=== PATIENT | female | born 1990 | race Caucasian/White ===

== ENCOUNTER 2018-02-17 17:28 | Emergency (ER) | payer SELFPAY ==
[2018-02-17 17:29] VITALS: BP 119/57; PULSE 72; RESP 16; TEMP 36.4; O2SAT 98; BMI 22.1
[2018-02-17 17:45] VITALS: BP 118/70; PULSE 75; RESP 14; O2SAT 99
--- NOTE | 2018-02-17 17:51 | US_ITS ---
US Venous Duplex LE Unilat / Limited INDICATION: RT LATERAL THIGH PAIN AND TINGLING IN THE CALF AREA COMPARISON: None TECHNIQUE: Ultrasonographic grayscale, duplex investigation of the venous structures of the right lower extremity. Doppler waveform analysis. FINDINGS: There is normal flow and augmentation without evidence of thrombus in the right greater saphenous vein, common femoral vein, femoral vein, popliteal vein, and posterior tibial vein. US/Venous Duplex Imag/Limited/Uni IMPRESSION: Negative examination. No evidence of DVT in the right lower extremity. at 1909 Reported and signed by: Koirn Alfred MD Electronically Signed: Korin Alfred MD at 19:07 EDT Tel , Service support ,
--- NOTE | 2018-02-17 17:51 | ED.DCSUM_ITS ---
- ER Visit Summary Date of Service: 02/17/18 Chief Complaint: Right leg and thigh pain History of Present Illness: The patient is a 27 F presenting with right thigh and leg cramps that started while she was standing in her house today. She traveled recently to [place] by car. She had no associated chest pain or shortness of breath. She does have a history of sciatica but this does not feel similar and she has no back or buttock pain at this time. It is somewhat better than it was earlier. She did not have significant swelling and no skin color changes. No paresthesias. Physical Examination: Mild tenderness right thigh medially and right calf medially but no objective swelling. Strong pulse distally. Overlying skin looks normal. Compartments are soft. Test Results: DVT ultrasound was negative Emergency Department Course and Treatment: No evidence of DVT. No evidence of cellulitis. No back pain or sciatica symptoms. Compartments are soft. Strong distal pulse. No claudication. Exact cause of her cramping is not clear but given her well appearance and unremarkable examination, I believe discharge home on muscle relaxers and naproxen is reasonable. She will return if worse and follow-up if not improving. Treatment Plan: Oral naproxen and Flexeril. Disposition: Home stable condition Impression: Initial encounter right lower extremity cramps of uncertain etiology This note was generated with [employer] dictation software. It may contain incorrect words, spelling, and punctuation that were not noted in review of the chart prior to signing ED Disposition - Plan for ED Patient: Chief Complaint: Lower Extremity Injury Instructions: ED Muscle Pain Leg Cramps Prescriptions: Naproxen [Naprosyn] 500 mg PO BID PRN #20 tablet Cyclobenzaprine [Flexeril] 10 mg PO TID PRN #20 tablet PRN Reason: Muscle Spasm Referrals: Care Physician,No Primary [Primary Care Provider] -
[2018-02-17] MEDS: Naproxen 500 MG Tablet PO (18:57)
[2018-02-17 19:05] VITALS: BP 112/75; PULSE 70; RESP 14; O2SAT 99
== END 2018-02-17 19:10 | disposition home or self-care (01) ==
LOC: ED 17:57
PROVIDERS: Emergency Provider Emergency Medicine
DX: R25.2 Cramp and spasm (principal); M79.604 Pain in right leg; M79.651 Pain in right thigh; E03.9 Hypothyroidism, unspecified; Z90.89 Acquired absence of other organs; Z79.899 Other long term (current) drug therapy
CPT/HCPCS: 93971; 99282

== ENCOUNTER 2018-07-03 21:48 | Emergency (ER) | payer SELFPAY ==
[2018-07-03 21:48] VITALS: BP 141/87; PULSE 82; RESP 16; TEMP 36.1; BMI 21.9
--- NOTE | 2018-07-03 22:18 | ED.DCSUM_ITS ---
- ER Visit Summary Date of Service: 07/03/18 Chief Complaint: Hematuria, dysuria History of Present Illness: The patient is a 27 F who did not feel well this afternoon. Around 5 PM she started developing dysuria, hematuria, and frequency. Last menstrual cycle was early June. Patient denies fever or chills. Physical Examination: Vital signs unremarkable. Patient is afebrile. Patient sitting in a bedside chair no acute distress. She is nontoxic appearing. Head neck examination unremarkable. Heart is regular rate and rhythm. Lung sounds are clear. Abdomen is soft with mild suprapubic tenderness. Test Results: Urine test is negative. Urinalysis shows 10-25 white cells, but 0 bacteria at this time. Emergency Department Course and Treatment: Patient certainly has signs and symptoms of acute cystitis. She is given a dose of Azo and will treat with a 3- day course of Bactrim. Treatment Plan: [] Disposition: Discharge Impression: Cystitis This note was generated with [employer] dictation software. It may contain incorrect words, spelling, and punctuation that were not noted in review of the chart prior to signing ED Disposition - Plan for ED Patient: Chief Complaint: Complaint Referrals: Care Physician,No Primary [Primary Care Provider] -
[2018-07-03 22:21] LABS: Bacteria 0 SEEN /hpf (None Seen); Mucous, Urine 0 SEEN /hpf (<or=2+)
[2018-07-03 22:22] LABS: Color, Urine Red (Yellow); Glucose, Dipstick Normal (Normal); Ketone-Dipstick Negative (Negative); Leukocyte Esterase-Dipstick 500 /ul (Negative); Nitrite-Dipstick Negative (Negative); Occult Blood-Urine 250 /ul (Negative); Protein-Dipstick 30 mg/dl (Negative); Specific Gravity, Urine 1.005 (1.002-1.030); Urine Bilirubin Dipstick Negative (Negative); Urine Clarity Clear (Clear); Urine Urobilinogen Normal (Normal)
[2018-07-03 22:27] LABS: Internal QC Validated? YES +Cl - CLEAR BKGD; Pregnancy, Urine Negative Negative
[2018-07-03] MEDS: Phenazopyridine 95 MG Tablet 190 MG PO (22:28)
[2018-07-03 22:33] LABS: Red Blood Cells-Urine 0-5 SEEN /hpf (0-5); White Blood Cells 10-25 SEEN /hpf (0-5)
[2018-07-03 22:34] LABS: Squamous Epithelial Cells - UA 0-5 SEEN /hpf (5-10)
--- NOTE | 2018-07-03 22:39 | ED.DEP ---
ED Disposition - Plan for ED Patient: Disposition: Home or Assisted Living Chief Complaint: Complaint Instructions: ED UTI Cystitis Female Prescriptions: Phenazopyridine HCl [Pyridium] 200 mg PO BID PRN PRN #10 tablet PRN Reason: Pain Smz/Tmp Ds [Bactrim Ds] 1 tablet PO BID #6 tablet Referrals: Ravinder Woodard MD [NON-STAFF] - 3-5 Days if not improving
[2018-07-03] MEDS: Smz/Tmp Ds Tablet 1 TABLET PO (22:59)
== END 2018-07-03 23:00 | disposition home or self-care (01) ==
PROVIDERS: Emergency Medicine; Emergency Provider Emergency Medicine
DX: N30.91 Cystitis, unspecified with hematuria (principal); E03.9 Hypothyroidism, unspecified; Z79.899 Other long term (current) drug therapy
CPT/HCPCS: 81001; 81025; 99283

== ENCOUNTER 2018-08-30 05:55 | Emergency (ER) | payer SELFPAY ==
[2018-08-30 05:56] VITALS: BP 131/86; PULSE 88; RESP 17; TEMP 36.8; O2SAT 100; BMI 20.7
--- NOTE | 2018-08-30 06:11 | EKG12_ITS ---
Test Reason : NUMBNESS Blood Pressure : / mmHG Vent. Rate : 086 BPM Atrial Rate : 086 BPM P-R Int : 170 ms QRS Dur : 100 ms QT Int : 372 ms P-R-T Axes : 068 006 029 degrees QTc Int : 445 ms Normal sinus rhythm Incomplete right bundle branch block Nonspecific T wave abnormality Abnormal ECG Confirmed by RAUL CARDENAS, CHANCE ([id number]), industrial editor FANTA US ([id number]) on 08/31/2018 4:28:43 PM Referred By: DHIRAJ Confirmed By:CHANCE CARTER MD
--- NOTE | 2018-08-30 06:13 | ED.DCSUM_ITS ---
- ER Visit Summary Date of Service: 08/30/18 Chief Complaint: [] Palpitations heart racing History of Present Illness: The patient is a 27 F with the above complaint since yesterday night. Intermittent. She woke up this morning and felt it again. She felt nausea. No stimulants. No illegal drug use. She is never had this before. Currently her severity is resolved. She developed some numbness and tingling in her arms and legs Physical Examination: [] Vital signs reviewed General: Well-nourished well-developed Head: Normocephalic atraumatic Eyes: Pupils equal round and reactive to light extraocular movements intact ENT: TMs clear no hemotympanum no trauma Neck: Nontender full range of motion Cardiovascular: Regular rate rhythm no murmurs normal S1-S2 Respiratory: No distress clear to auscultation bilaterally chest nontender Abdomen: Soft nontender nondistended normal bowel sounds no masses Back: Nontender no CVA tenderness Extremities: Nontender active range of motion ?4 extremities no trauma Skin: Normal color no trauma Neuro alert oriented cranial nerves II through XII intact normal strength sensation reflexes Test Results: [] Emergency Department Course and Treatment: [] And IV fluids and Zofran. Lab work obtained. EKG shows sinus rhythm at a rate of 86. No acute ischemic findings or arrhythmia. Nonspecific changes. Lab work shows a potassium of 2.9 down from 3.3. Chronic low platelets of 149. Patient given oral potassium supplementation. [place] better after treatment. She will be discharged home to follow-up with her family doctor. Given a prescription for 5 days of potassium supplementation and will have her potassium rechecked. On the monitor she has remained in normal sinus. Treatment Plan: [] Disposition: [] Impression: [] Palpitations Hypokalemia Limb paresthesias likely secondary to hypokalemia This note was generated with [employer] dictation software. It may contain incorrect words, spelling, and punctuation that were not noted in review of the chart prior to signing ED Disposition - Plan for ED Patient: Chief Complaint: General Illness Referrals: Ravinder Woodard MD [Primary Care Provider] -
[2018-08-30] MEDS: 0.9% Normal Saline 1,000 ML 1000 ML IV (06:24)
[2018-08-30] MEDS: Ondansetron 4 MG/2 ML Vial IV (06:24)
[2018-08-30 06:27] LABS: Absolute Lymphocyte Count 1.42 X10^3/ul (0.83-4.51); Absolute Neutrophil Count 1.4 X10^3/uL (2.0-7.7); Basophil# 0.01 X10^3/uL; Basophil% 0.3 % (0-1); Eosinophil# 0.06 X10^3/uL; Eosinophils% 1.8 % (0-5); Hematocrit 42.9 % (37-47); Hemoglobin 14.2 g/dl (12.0-15.0); Lymphocyte # 1.42 X10^3/ul (4.0); Lymphocyte % 42.1 % (19-41); Mean Corp Hgb Conc 33.1 g/gl (32-36); Mean Corpuscular Volume 87.6 fL (81-99); Monocyte# 0.48 X10^3/uL; Monocyte% 14.2 % (0-10); Neutrophil % 41.6 % (47-70); POSITIVE COUNT NO; POSITIVE DIFFERENTIAL NO; POSITIVE MORPHOLOGY NO; Platelet Count 149 K/mm3 (150-450); RBC Distribution Width SD 41.7 fl (35.1-43.9); White Blood Count 3.4 K/mm3 (4.4-11.0)
[2018-08-30 06:35] LABS: Anion Gap 12 (5-15); BUN 11 mg/dL (7-18); BUN/Creat Ratio 13.3 RATIO (10-20); Calcium,Total 8.5 mg/dL (8.5-10.1); Chloride 105 mmol/L (98-107); Creatinine, Serum 0.83 mg/dL (0.55-1.02); EST Glomerular Filtration Rate 86 mL/min (>60); Est Glom Filt Rate - Afr Amer 104 mL/min (>60); Estimated Creatinine Clearance 82.73 ml/min; Glucose 91 mg/dL (74-106); Potassium 2.9 mmol/L (3.5-5.1); Sodium Level 142 mmol/L (136-145)
--- NOTE | 2018-08-30 06:57 | ED.DEP ---
ED Disposition - Plan for ED Patient: Disposition: Home or Assisted Living Chief Complaint: General Illness Instructions: ED Palpitations, Discharge Instructions for Hypokalemia Prescriptions: Potassium Chloride [K-Dur] 20 meq PO DAILY 5 Days #5 tab Referrals: Ravinder Woodard MD [Primary Care Provider] -
[2018-08-30 07:08] VITALS: BP 146/86; PULSE 71; RESP 18; O2SAT 99
== END 2018-08-30 07:09 | disposition home or self-care (01) ==
PROVIDERS: Emergency Provider Emergency Medicine; Family Provider Family Medicine; PCP Family Medicine
DX: R00.2 Palpitations (principal); E87.6 Hypokalemia; R20.2 Paresthesia of skin; D69.6 Thrombocytopenia, unspecified; E03.9 Hypothyroidism, unspecified; Z79.899 Other long term (current) drug therapy
CPT/HCPCS: 80048; 85025; 93005; 96374; 99285; J7030; A4216; J2405

== ENCOUNTER 2019-05-10 12:02 | Emergency (ER) | payer SELFPAY ==
[2019-05-10 12:04] VITALS: BP 127/75; PULSE 70; RESP 16; TEMP 36.7; O2SAT 100; BMI 21.2
--- NOTE | 2019-05-10 13:11 | EKG12_ITS ---
Test Reason : DIZZINESS Blood Pressure : / mmHG Vent. Rate : 065 BPM Atrial Rate : 065 BPM P-R Int : 158 ms QRS Dur : 096 ms QT Int : 390 ms P-R-T Axes : 013 029 032 degrees QTc Int : 405 ms Normal sinus rhythm Incomplete right bundle branch block Borderline ECG Confirmed by CORIE JEFFERY ([id number]), editor city MATT GIRARD ([id number]) on 05/11/2019 2:34:35 PM Referred By: SEA Confirmed By:CORIE JEFFERY
--- NOTE | 2019-05-10 13:12 | VDLE_ITS ---
Reason For Study: Pain Procedure LEFT Exam performed portable in ED. GSV is normal. A preliminary report was called and/or faxed CFV is compressible, spontaneous, phasic, to Dimas. competent, and demonstrates normal augmentation. FV is compressible, spontaneous, phasic, competent and demonstrates normal augmentation. POP V is compressible, spontaneous, phasic, competent and demonstrates normal augmentation. T/P Trunk is compressible. PTV is compressible. LT PerV is compressible. Nonvascularized strucutre noted in the popliteal space that measures 2.65 x 1.22 x 3.24 cm. Interpretation Summary There is no evidence of left lower extremity deep vein thrombosis. Left great saphenous vein appears patent and compressible segmentally. Left popliteal space 2.65 x 1.22 x 3.24 cm non vascular cystic structure consistent with a Jovel's cyst. Clinical correlation would be appropriate. Ordering Physician: Tigre Cochran Referring Physician: Ravinder Woodard Performed By: Annika Hardy RVT
--- NOTE | 2019-05-10 13:13 | ED.DCSUM_ITS ---
History of Present Illness Chief Complaint: Lower Extremity Injury Detail of Chief Complaint: left leg pain Informant: Patient Onset: Days - several Context: Gradual Onset Timing: Continuous Quality: aching Location: left calf, popliteal area, posteromedial thigh Current Severity: Severe Maximum Severity: Severe Worsened by: walking, bending Relieved by: rest Associated Symptoms: nonpleuritic chest knot and near-syncope today Narrative: Patient states she usually gets left leg cramping when her potassium is low, which tends to be right after her menstrual cycle, which just ended about 5 days ago and had been normal. She is not . She states her left leg is been a lot worse in the last couple days, and feels different than when her potassium is low. She took a potassium pill this morning and shortly thereafter felt nauseated, near syncopal, she did not vomit. She has taken potassium multiple times in the past and does not get the symptoms. She took no other medication this morning. She denies headache or focal neurologic complaint or confusion. No neck stiffness or fevers. She has had some left upper quadrant discomfort for the last month or 2, does not seem to be affected by eating. That is present now and is mild. She complains of a knot being in her chest since this near syncopal episode, she points to the lower retrosternal area. No history of DVT or PE, no edema in her ankle. No recent immobilization, long travel, hospitalization, or surgery. No family history of clotting disorders that she knows of. - Past Medical History (1) Hypothyroidism Status: Chronic Past Medical History - Allergies and Home Meds Allergies/Adverse Reactions: Allergies amoxicillin [Amoxicillin] Allergy (Verified 08/30/18 05:59) Hives latex Allergy (Verified 08/30/18 05:59) Hives nalbuphine HCl [From Nubain] Allergy (Verified 08/30/18 05:59) Hives Primary Care Physician: Ravinder Woodard MD [Primary Care Provider] - As soon as possible (call for appt) Jorge A Meyer MD [STAFF PHYSICIAN] - 1 Week if not improving Lives: Spouse/ Significant Other Smoking Status: Never smoker Drugs: None Review of Systems General: Reports: Malaise. Denies: Chills, Fever, Sweats Eyes: Denies: Visual changes - bilaterally, Diplopia ENT: Denies: Rhinorrhea, Sore throat Cardiovascular: Reports: Chest pain. Denies: Palpitations Respiratory: Denies: Dyspnea, Cough, Dyspnea on exertion Gastrointestinal: Reports: Abdominal pain, Nausea. Denies: Vomiting, Diarrhea, Melena, Hematochezia Genitourinary: Denies: Dysuria, Hematuria, Frequency Musculoskeletal: Reports: Extremity Pain. Denies: Neck pain, Back pain, Swelling Skin: Denies: Rash, Wounds Neurological: Reports: Parasthesia - All over. Denies: Headache, Weakness Physical Exam Vital Signs/Narrative: Vital Signs Temp Pulse Resp BP Pulse Ox 05/10/19 12:04 98.1 F 70 16 127/75 H 100 Inital Vital Signs reviewed: Yes General: Well nourished, Well developed, No Acute Distress - Well-appearing, conversive Head: Normocephalic, Atraumatic Eyes: Perrl, EOMI ENT: Moist mucous membranes, No rhinorrhea Neck: Supple, Nontender Cardiovascular: Regular rate, Regular rhythm, No murmurs Respiratory: No distress, CTA bilaterally, Chest nontender Abdomen: Soft, Nondistended, Normal bowel sounds, No masses, Tender - Mildly in the medial aspect of left upper quadrant subcostal only. Rest of abdomen benign.. Negative for: Guarding, Rebound tenderness, Pulsatile mass Back: Nontender, Normal Inspection. Negative for: CVA tenderness Extremities: Nontender, No edema, Calf Tenderness - No palpable cords. Tender l eft side only. Also tender popliteal space and into distal thigh. No erythema or edema. Skin: Normal color, No rash, No Trauma Neurological: Alert, Oriented x3, Cranial nerves II-XII grossly intact, Normal Strength, Normal Sensation Psychological: Normal affect, Normal Mood Diagnostic/Tx/Re-eval Impressions Chest CTA 05/10/19 13:59 IMPRESSION: Focal pulmonary embolism in a subsegmental branch in the right upper lobe. This is nonocclusive. Electronically Signed: Colton Peace, at 15:08 EDT , Service support , 05/10/19 13:59 CTA Chest W/WO Contrast [CT] Stat 05/10/19 15:29 CTA Head AND Neck W/ Contrast [CT] Stat Laboratory Results 05/10/19 05/10/19 05/10/19 13:24 13:24 13:24 WBC 7.5 RBC 4.73 Hgb 14.0 Hct 42.5 MCV 89.9 MCH 29.6 MCHC 32.9 RDW Std Deviation 43.0 RDW Coeff of Lauren 13.0 Plt Count 144 L MPV 11.0 Immature Gran % (Auto) 0.100 Neut % (Auto) 82.8 H Lymph % (Auto) 10.0 L Shannon % (Auto) 6.6 Eos % (Auto) 0.1 Baso % (Auto) 0.4 Absolute Neuts (auto) 6.2 Absolute Lymphs (auto) 0.75 L Nucleated RBC % 0 D-Dimer Quant (PE/DVT) 1.91 H* Sodium 144 Potassium 3.7 Chloride 107 Carbon Dioxide 30.0 Anion Gap 7 BUN 14 Creatinine 0.78 Estim Creat Clear Calc 87.24 Est GFR (MDRD) Af Amer 112 Est GFR (MDRD) Non-Af 92 BUN/Creatinine Ratio 18.0 Glucose 88 Calcium 9.1 - Rhythm Strip Rhythm Strip: Sinus Rhythm Rate: 65 Ectopy: None - EKG Initial EKG Interpretation: Sinus Rhythm, No Acute Injury Pattern - RSR prime. Otherwise normal EKG. No old available for comparison. Prior: No Prior - Medical Decision Making Patient does not have a DVT in her left lower extremity, there is evidence of a Jovel's cyst, and her d-dimer is elevated to a significant degree. Given her thoracic symptoms, CT angiography was obtained and indeed shows small nonocclusive pulmonary embolus. It does not appear to have been provoked. This will need treated, and she meets criteria for doing so as an outpatient. There are no signs of right heart strain on her EKG, she has normal vital signs without tachycardia or hypoxemia, and clinically as well-appearing. As determined upon prescribing her medications and discussing the outpatient plan, she has no medical coverage for prescriptions which will make treating this more difficult and challenging. I involved social work and wrote prescriptions for Lovenox and Coumadin, and gave her a 1.5 mg/kg initial dose of Lovenox here. Discussed with her PCP for outpatient follow-up. ED Disposition - Plan for ED Patient: Disposition: Home or Assisted Living Diagnosis: Pulmonary embolism, Jovel's cyst of knee Instructions: Pulmonary Embolism, Taking?Coumadin, Jovel's Cyst, Lovenox Prescriptions: Warfarin [Coumadin ([facility])] 3 mg PO DAILY #30 tab Prescription Printed Enoxaparin Sodium [Lovenox] 55 mg SQ BID 5 Days #10 syr Prescription Printed Referrals: Jorge A Meyer MD [STAFF PHYSICIAN] - 1 Week if not improving Ravinder Woodard MD [Primary Care Provider] - As soon as possible (call for appt)
[2019-05-10 13:32] LABS: Absolute Lymphocyte Count 0.75 X10^3/uL (0.83-4.51); Absolute Neutrophil Count 6.2 X10^3/uL (2.0-7.7); Basophil# 0.03 X10^3/uL; Basophil% 0.4 % (0-1); Eosinophil# 0.01 X10^3/uL; Eosinophils% 0.1 % (0-5); Hematocrit 42.5 % (37-47); Lymphocyte # 0.75 X10^3/ul (4.0); Mean Corp Hgb Conc 32.9 g/dL (32-36); Mean Corpuscular Hgb 29.6 pg (27.0-32.0); Mean Corpuscular Volume 89.9 fL (81-99); Monocyte# 0.49 X10^3/uL; Monocyte% 6.6 % (0-10); NRBC Flagged by Analyzer 0 % (0-5); Neutrophil # 6.18 X10^3/uL (2.7-7.7); Neutrophil % 82.8 % (47-70); Platelet Count 144 K/mm3 (150-450); Red Blood Count 4.73 M/mm3 (4.2-5.4); White Blood Count 7.5 K/mm3 (4.4-11.0)
[2019-05-10 13:45] LABS: Anion Gap 7 (5-15); BUN 14 mg/dL (7-18); Calcium,Total 9.1 mg/dL (8.5-10.1); Chloride 107 mmol/L (98-107); Creatinine, Serum 0.78 mg/dL (0.55-1.02); D-Dimer Quantitative (DVT/PE) 1.91 FEU/ug/m (0.27-0.49); EST Glomerular Filtration Rate 92 mL/min (>60); Est Glom Filt Rate - Afr Amer 112 mL/min (>60); Estimated Creatinine Clearance 87.24 ml/min; Glucose 88 mg/dL (74-106); Potassium 3.7 mmol/L (3.5-5.1); Sodium Level 144 mmol/L (136-145)
[2019-05-10] MEDS: Mag Hydrox/Al Hydrox/Simeth 30 ML UDC PO (13:58)
--- NOTE | 2019-05-10 13:59 | CT_ITS ---
STUDY: CTA CHEST REASON FOR EXAM: Female, 28 years old. Elevated d-dimer. Left lower extremity pain. RADIATION DOSAGE (If Supplied By Facility): CTDIvol = ( 3.76 ) mGy, DLP = ( 139.50 ) mGycm TECHNIQUE: The examination was performed with the intravenous administration of 100 IV Isovue 370. Post-processing of the angiographic images was performed, with multiplanar reformation and 3D reconstruction. Individualized dose optimization techniques were used for this CT. COMPARISON: None. FINDINGS: Focal subsegmental intraluminal thrombus in the right upper lobe pulmonary arterial branch. This is a complex localized pulmonary embolus. Normal thoracic aorta and visualized great vessels. There is no demonstrated aortic dissection. Normal heart and pericardium. Normal mediastinum. Normal hilar regions. Normal visualized trachea and bronchi. The lungs are well expanded. Normal pulmonary parenchyma. Normal pleura. Normal chest wall structures. Normal osseous structures. Normal visualized upper abdomen. CT/CTA Chest W/WO Contrast IMPRESSION: Focal pulmonary embolism in a subsegmental branch in the right upper lobe. This is nonocclusive. Electronically Signed: Colton Peace, at 15:08 EDT , Service support ,
[2019-05-10 14:21] VITALS: BP 120/61; BP 124/68; BP 131/68; PULSE 72; PULSE 76; PULSE 80
[2019-05-10 16:00] VITALS: BP 94/76; PULSE 72; RESP 16; O2SAT 100
--- NOTE | 2019-05-10 16:00 | CM.ED ---
SOCIAL WORK INFORMANT: DR. OSEI REASON FOR REFERRAL: RX ASSISTANCE/SELF PAY PATIENT MET WITH PATIENT IN ROOM. INTRODUCED ROLE AND REASON FOR REFERRAL. PATIENT REPORTS SHE AND ARE OVER INCOME FOR MEDICAID AND DOES NOT HAVE INSURANCE. DISCUSSED POSSIBLE COST OF MEDICATIONS AND INFORMED PATIENT DR. OSEI IS WRITING UP PRESCRIPTIONS AND THIS WORKER WILL CHECK PRICES WITH [facility]. ALICIA MUELLER, HUMAN RESOURCE PROFESSIONAL, ADMINISTRATIVE SERVICES DIRECTOR.
--- NOTE | 2019-05-10 16:03 | NURSING ---
ATTEMPTING TO REACH DR BABB AT F
--- NOTE | 2019-05-10 16:25 | CM.ED ---
SOCIAL WORK DR. OSEI COMPLETED SCRIPTS. THIS WORKER CALLED OUTPATIENT PHARMACY, COST OF MEDICATIONS COUMADIN- $16.82 AND LOVENOX $449.88. UPDATED PATIENT AND PATIENT'S ON THE ABOVE. TO DISCUSS WITH FAMILY. EDUCATION PROVIDED ON INSURANCE OPTIONS. NO OTHER QUESTIONS OR CONCERNS AT THIS TIME PER PATIENT. THIS WORKER TO REMAIN AVAILABLE FOR NEEDS. ALICIA MUELLER, DISTRICT EXTENSION SERVICE AGENT, COIL MACHINE OPERATOR.
[2019-05-10] MEDS: Enoxaparin 80 MG/0.8 ML Syringe SC (17:04)
[2019-05-10 17:11] VITALS: BP 94/76; PULSE 77; RESP 16; O2SAT 100
== END 2019-05-10 17:15 | disposition home or self-care (01) ==
PROVIDERS: Emergency Provider Emergency Medicine; Family Provider Family Medicine; PCP Family Medicine
DX: I26.99 Other pulmonary embolism without acute cor pulmonale (principal); M71.22 Synovial cyst of popliteal space [Baker], left knee; R11.0 Nausea; R20.2 Paresthesia of skin; E03.9 Hypothyroidism, unspecified; Z79.899 Other long term (current) drug therapy
CPT/HCPCS: 71275; 80048; 85025; 85379; 93005; 93971; 96360; 96361; 96372; 99284; J7030; J7040; Q9967; A4216

== ENCOUNTER 2019-05-11 00:17 | Emergency (ER) | payer SELFPAY ==
[2019-05-10 12:04] VITALS: BMI 21.2
[2019-05-11 00:18] VITALS: BP 117/71; PULSE 77; RESP 16; TEMP 36.8; O2SAT 98; BMI 19.5
--- NOTE | 2019-05-11 01:05 | CT_ITS ---
STUDY: CT BRAIN WITHOUT CONTRAST REASON FOR EXAM: Female, 28 years old. Headache RADIATION DOSAGE (If Supplied By Facility): CTDIvol = ( 44.99 ) mGy, DLP = ( 745.49 ) mGycm TECHNIQUE: Transaxial CT imaging of the brain was performed without administration of intravenous contrast material. Individualized dose optimization techniques were used for this CT. COMPARISON: No relevant priors. FINDINGS: Normal soft tissue structures. Normal calvarium. Normal size ventricles and extra-axial spaces for the patient's age. Normal white matter tracts of the cerebral hemispheres. Normal basal ganglia and thalami. Normal brainstem. Normal cerebellum. There is no intracranial hemorrhage. There are no findings of an acute ischemic infarction. Normal visualized paranasal sinuses. CT/Brain/Head without Contrast IMPRESSION: Normal unenhanced CT scan of the brain. Electronically Signed: Apollo Reyes, at 2:49 EDT Tel , Service support ,
[2019-05-11] MEDS: DiphenhydrAMINE 50 MG/ML Syringe 25 MG IV (02:11)
[2019-05-11] MEDS: Metoclopramide 10 MG/2 ML Vial 5 MG IV (02:11)
[2019-05-11 02:19] VITALS: RESP 15; O2SAT 96
[2019-05-11] MEDS: Enoxaparin 60 MG/0.6 ML Syringe 55 MG SC (05:56)
[2019-05-11 06:27] VITALS: BP 107/70; PULSE 58; RESP 16; O2SAT 98
--- NOTE | 2019-05-11 07:22 | ED.DCSUM_ITS ---
- ER Visit Summary Date of Service: 05/11/19 Chief Complaint: Headache History of Present Illness: The patient is a 28 F presenting with headache. Patient states this started around 1030 last night. It was gradual in onset. She denies nausea or vomiting. Denies fever. She was seen in the ED yesterday and diagnosed with a pulmonary embolism. She was sent home with Lovenox and Coumadin. She denies current chest pain or shortness of breath. Physical Examination: Vitals are stable. Patient is afebrile. Alert no acute distress. HEENT exam is unremarkable. Neck is supple. No meningismus Lungs are clear and equal bilaterally. Heart is regular rate and rhythm. Abdomen is soft nontender nondistended. Extremities are unremarkable. Skin is warm and dry. No focal neurologic deficit. Remainder of exam is unremarkable. Emergency Department Course and Treatment: CT head shows normal unenhanced CT scan of the brain. Patient was given Reglan, Benadryl with improvement of her headache. Patient was observed in the ED and she is resting comfortably on reevaluation. Advised to follow-up with primary care physician. Advised to return to ED if worsening complaints. Disposition: Discharge home Impression: Headache This note was generated with [employer] dictation software. It may contain incorrect words, spelling, and punctuation that were not noted in review of the chart prior to signing ED Disposition - Plan for ED Patient: Instructions: HEADACHE, Unspecified Referrals: Ravinder Woodard MD [Primary Care Provider] -
[2019-05-11 08:00] VITALS: BP 96/59; PULSE 79; RESP 16; O2SAT 98
== END 2019-05-11 08:03 | disposition home or self-care (01) ==
LOC: ED 01:42
PROVIDERS: Emergency Provider Emergency Medicine; Family Provider Family Medicine; PCP Family Medicine
DX: R51 Headache (principal); F32.9 Major depressive disorder, single episode, unspecified; E03.9 Hypothyroidism, unspecified; I26.99 Other pulmonary embolism without acute cor pulmonale; Z79.01 Long term (current) use of anticoagulants; Z79.899 Other long term (current) drug therapy
CPT/HCPCS: 70450; 96372; 96374; 96375; 99284; A4216

== ENCOUNTER 2019-05-13 08:52 | Emergency (ER) | payer SELFPAY ==
[2019-05-13 08:53] VITALS: BP 120/79; PULSE 70; RESP 16; TEMP 36.7; O2SAT 100; BMI 22.6
[2019-05-13 09:28] LABS: Absolute Lymphocyte Count 1.45 X10^3/uL (0.83-4.51); Absolute Neutrophil Count 1.5 X10^3/uL (2.0-7.7); Basophil# 0.02 X10^3/uL; Basophil% 0.6 % (0-1); Eosinophil# 0.06 X10^3/uL; Eosinophils% 1.8 % (0-5); Hemoglobin 14.9 g/dL (12.0-15.0); Lymphocyte # 1.45 X10^3/ul (4.0); Lymphocyte % 43.8 % (19-41); Mean Corp Hgb Conc 32.4 g/dL (32-36); Mean Corpuscular Hgb 28.9 pg (27.0-32.0); Mean Corpuscular Volume 89.3 fL (81-99); Mean Platelet Vol. 11.5 fl (6.2-12.0); Monocyte# 0.33 X10^3/uL; NRBC Flagged by Analyzer 0 % (0-5); Neutrophil # 1.45 X10^3/uL (2.7-7.7); Neutrophil % 43.8 % (47-70); Platelet Count 137 K/mm3 (150-450); RBC Distribution Width CV 12.7 % (11.6-14.6); RBC Distribution Width SD 42.3 fl (35.1-43.9); Red Blood Count 5.15 M/mm3 (4.2-5.4); White Blood Count 3.3 K/mm3 (4.4-11.0)
[2019-05-13] MEDS: Ondansetron 4 MG/2 ML Vial IV (09:32)
[2019-05-13 09:41] LABS: ALB/GLOB Ratio 1.2 RATIO (0.9-2.4); AST(SGOT) 18 U/L (15-37); Alanine Aminotransfer ALT/SGPT 25 U/L (13-56); Albumin, Serum 4.1 g/dL (3.2-5.0); Alkaline Phosphatase 54 U/L (45-117); Anion Gap 6 (5-15); BUN 9 mg/dL (7-18); BUN/Creat Ratio 10.9 RATIO (10-20); Calcium,Total 9.1 mg/dL (8.5-10.1); Chloride 103 mmol/L (98-107); Creatinine, Serum 0.83 mg/dL (0.55-1.02); EST Glomerular Filtration Rate 86 mL/min (>60); Est Glom Filt Rate - Afr Amer 104 mL/min (>60); Estimated Creatinine Clearance 81.98 ml/min; Globulin 3.3 g/dL (2.2-4.2); Glucose 89 mg/dL (74-106); Lipase 154 U/L (73-393); Potassium 3.5 mmol/L (3.5-5.1); Protein, Total 7.4 g/dL (6.4-8.2); Sodium Level 139 mmol/L (136-145)
[2019-05-13 09:42] LABS: Internal QC Validated? YES +Cl - CLEAR BKGD; Pregnancy, Serum, hCG Quali. NEGATIVE Negative
--- NOTE | 2019-05-13 10:01 | ED.VISSUMM ---
- ER Visit Summary Date of Service: 05/13/19 Chief Complaint: [Nausea, not feeling well, pain to the top of left foot.] History of Present Illness: The patient is a 28 F [to the emergency department with multiple vague complaints today. Patient states that she woke up with some discomfort to the top of her left foot and some tingling. Patient states that she was recently diagnosed with pulmonary emboli on the sixth of this month. Patient also had a negative venous Doppler of the left lower extremity on the sixth of this month. She is currently being treated with Lovenox as well as Coumadin. Patient states that she had gotten up and gave herself the Lovenox injection and that afterwards she thought she had done really well with it but began feeling lightheaded and presyncopal. She complained of nausea. She has had odd pains all over her body for months and in August was started on Zoloft. Has had intermittent numbness and tingling in both arms and both legs for months. Patient states that she does not feel like she is any more stress than usual. She also has history of hypokalemia. She has a history of Axel's thyroiditis.] Physical Examination: [HEENT-PERRLA, EOMI. Cranial nerves II through XII grossly intact. TMs clear. Mucous membranes moist. No adenopathy. Cardiovascular-regular rate and rhythm without murmur or ectopy Lungs-clear to auscultation, chest wall stable without crepitus or subcu emphysema Abdomen-normoactive bowel sounds, soft, nontender, no rebound or rigidity, no peritoneal signs. Extremities-intact ?4, normal range of motion, normal pulses, atraumatic] Test Results: [CBC with differential was unremarkable other than a slightly depressed white blood cell count of 3.3. Chemistries unremarkable. LFTs were normal. Lipase was 154. hCG was negative.] Emergency Department Course and Treatment: [Given Zofran 4 mg IV for nausea and her nausea mostly resolved.] Treatment Plan: [Suspect patient may be having some anxiety issues. Possible she also may have had a little bit of a vasovagal episode related to the injection this morning. Plan will be to give her a prescription for Zofran for home and some as needed Ativan. Patient advised to follow-up with her primary care physician if her symptoms persist.] Disposition: [Discharged to home stable condition] Impression: [Paresthesias Nausea Recent diagnosis of pulmonary embolism] This note was generated with [employer] dictation software. It may contain incorrect words, spelling, and punctuation that were not noted in review of the chart prior to signing ED Disposition - Plan for ED Patient: Referrals: Ravinder Woodard MD [Primary Care Provider] -
--- NOTE | 2019-05-13 10:05 | ED.DEP ---
ED Disposition - Plan for ED Patient: Instructions: Paraesthesias, Panic Attack Prescriptions: Lorazepam [Ativan] 1 mg PO TID PRN #10 tab PRN Reason: Anxiety Prescription Printed Ondansetron [Zofran Odt] 4 mg PO Q8H PRN PRN #10 tab PRN Reason: Nausea Prescription Printed Referrals: Ravinder Woodard MD [Primary Care Provider] - 3-5 Days
[2019-05-13 10:23] VITALS: BP 116/81; PULSE 70; RESP 18; O2SAT 98
== END 2019-05-13 10:27 | disposition home or self-care (01) ==
PROVIDERS: Emergency Provider Emergency Medicine; Family Provider Family Medicine; PCP Family Medicine
DX: R20.2 Paresthesia of skin (principal); R11.0 Nausea; Z86.711 Personal history of pulmonary embolism; F41.9 Anxiety disorder, unspecified; E06.3 Autoimmune thyroiditis; E87.6 Hypokalemia; Z79.01 Long term (current) use of anticoagulants; Z79.899 Other long term (current) drug therapy
CPT/HCPCS: 80053; 83690; 84703; 85025; 96374; 99285; A4216; J2405

== ENCOUNTER → 2019-05-19 | Outpatient (CLI) | payer SELFPAY ==
[2019-05-13 08:53] VITALS: BMI 22.6
[2019-05-19 12:21] LABS: International Normalized Ratio 1.3; Prothrombin Time (Protime)PT. 16.1 SECONDS (11.7-14.9)
== END | disposition home or self-care (01) ==
LOC: LABSPEC 12:04
PROVIDERS: Family Provider Family Medicine; PCP Family Medicine; Referring Provider Family Medicine; Visit Provider Family Medicine
DX: I26.99 Other pulmonary embolism without acute cor pulmonale (principal)
CPT/HCPCS: 85610

== ENCOUNTER → 2019-05-23 | Outpatient (CLI) | payer SELFPAY ==
[2019-05-13 08:53] VITALS: BMI 22.6
[2019-05-23 13:27] LABS: International Normalized Ratio 1.3; Prothrombin Time (Protime)PT. 16.4 SECONDS (11.7-14.9)
== END | disposition home or self-care (01) ==
LOC: LABSPEC 12:58
PROVIDERS: Family Provider Family Medicine; PCP Family Medicine; Referring Provider Family Medicine; Visit Provider Family Medicine
DX: I26.99 Other pulmonary embolism without acute cor pulmonale (principal)
CPT/HCPCS: 85610

== ENCOUNTER 2022-02-24 17:05 | Outpatient (CLI) | payer SELFPAY ==
[2022-02-24] VITALS (7 sets, daily range): BP systolic 95–119; BP diastolic 54–76; PULSE 71–77; TEMP 36.7; BMI 23.1
[2022-02-24 17:55] LABS: Hematocrit 32.4 % (37-47); Mean Corp Hgb Conc 30.9 g/dL (32-36); Mean Corpuscular Hgb 25.7 pg (27.0-32.0); Mean Corpuscular Volume 83.3 fL (81-99); Platelet Count 151 K/mm3 (150-450); RBC Distribution Width CV 14.7 % (11.6-14.6); RBC Distribution Width SD 40.3 fl (35.1-43.9); Red Blood Count 3.89 M/mm3 (4.2-5.4); White Blood Count 7.7 K/mm3 (4.4-11.0)
[2022-02-24 18:18] LABS: Protein, Urine (Random) 6.8 mg/dL (<11.9); Protein:Creat Ratio 140 mg/g CRE (0-200)
[2022-02-24 18:24] LABS: AST(SGOT) 15 U/L (15-37); Alanine Aminotransfer ALT/SGPT 30 U/L (13-56); Creatinine, Serum 0.62 mg/dL (0.55-1.02); EST Glomerular Filtration Rate 119 mL/min (>60); Est Glom Filt Rate - Afr Amer 144 mL/min (>60); Estimated Creatinine Clearance 111.45 ml/min; Uric Acid 3.9 mg/dL (2.6-6.0)
--- NOTE | 2022-02-24 18:53 | OB.TRI.NOTE ---
HPI - General HPI Narrative MATT CHEN, is a 31 F who presents c/o MAR started 02/22. Second Fe infusion for anemia was 02/21. Started early in am. Not worse w/ sound or light. Doesn't keep her awake. Gets a little light headed when stands up otherwise not visual changes. Pain RUQ but only over parts. Not worse after meals. No N/V. Good FM. NO VB/LOF. No regular ctxs. Maternal Data Information Final KRISTIN: 04/25/22 Gestational age: 31 3/7 weeks PFSH PFSH Home Medications levothyroxine 150 mcg PO DAILY 02/17/18 [History Last Taken 05/10/19] sertraline 50 mg PO DAILY 08/30/18 [History Last Taken 05/10/19] ondansetron 4 mg PO Q8H PRN PRN #10 tab 05/13/19 [Rx Last Taken Unknown] enoxaparin [Lovenox] 60 mg SUBCUT Q12H 02/24/22 [History Last Taken Unknown] Allergy/AdvReac Type Severity Reaction Status Date / Time amoxicillin [Amoxicillin] Allergy Hives Verified 02/24/22 18:02 banana Allergy Swelling Verified 02/24/22 18:04 [place] And Derivatives Allergy Other Verified 02/24/22 18:04 green pepper Allergy Other Verified 02/24/22 18:05 latex Allergy Hives Verified 02/24/22 18:02 nalbuphine HCl [From Nubain] Allergy Hives Verified 02/24/22 18:02 Social History Smoking Status: Never smoker History Elective abortions Hx Para 3 Spontaneous abortions Hx # Term Pregnancies Ectopic pregnancies Hx # Pregnancies Multiple births # of living children Physical Exam Narrative 2+ DTRs, no clonus, no pain in epigastric area, neg. Cason's sign. Some discomfort over parts in RUQ area Const alert and oriented x3 HEENT HEENT Narrative: CN 2-12 intact and symmetrical NST FHR Rate Baby A Baseline: 140 Variability:: Moderate Accelerations:: 15 x 15 Decelerations:: Variable (x2) NST Reactive:: Yes FHR Category:: Category I (for > 20 min after last variable) Uterine Activity:: quiet Assessment & Plan (1) 31 weeks gestation of : PLAN: No evidence of preeclampsia. Suspect tension type headache. Not consistent with migraine. Preeclampsia labs are normal. Patient does not truly have epigastric or right upper quadrant pain or tenderness, she has some tenderness over parts in the fundus on the right side. Call or return if fever, persistent nausea vomiting, or other symptoms. If headache worsens she should return. I am not certain that the iron infusions are the cause of these issues. However, she can see after this week if the headache gets worse after the iron infusions and would consider discontinuing them. (2) Multigravida in third trimester: (3) Headache:
== END 2022-02-24 19:15 | disposition home or self-care (01) ==
LOC: WPOUT 17:08 → WP 17:09
PROVIDERS: PCP Family Medicine; Referring Provider Obstetrics & Gynecology; Visit Provider Obstetrics & Gynecology
DX: O26.893 Other specified pregnancy related conditions, third trimester (principal); R51.9 Headache, unspecified; Z3A.31 31 weeks gestation of pregnancy; O99.013 Anemia complicating pregnancy, third trimester; D64.9 Anemia, unspecified; O36.8330 Maternal care for abnormalities of the fetal heart rate or rhythm, third trimester, not applicable or unspecified
CPT/HCPCS: 36415; 59025; 59050; 82565; 82570; 84156; 84450; 84460; 84550; 85027; 99218; G0378

== ENCOUNTER 2022-03-11 22:30 | Outpatient (CLI) | payer SELFPAY ==
[2022-03-11 22:46] VITALS: PULSE 69; O2SAT 99
[2022-03-11 22:52] VITALS: BP 109/65; PULSE 62
[2022-03-11 23:02] VITALS: BMI 24.3
[2022-03-11 23:20] LABS: Mucous, Urine 0 SEEN /hpf (<or=2+); Red Blood Cells-Urine 0 SEEN /hpf (0-5); Squamous Epithelial Cells - UA 0 SEEN /hpf (5-10); White Blood Cells 0 SEEN /hpf (0-5)
[2022-03-11 23:27] LABS: Color, Urine Yellow (Yellow); Glucose, Dipstick Normal (Normal); Ketone-Dipstick Negative (Negative); Leukocyte Esterase-Dipstick Negative /ul (Negative); Nitrite-Dipstick Negative (Negative); Occult Blood-Urine Negative /ul (Negative); Protein-Dipstick Negative (Negative); Urine Bilirubin Dipstick Negative (Negative); Urine Clarity Clear (Clear); Urine Urobilinogen Normal (Normal)
[2022-03-11 23:48] LABS: ROM Internal Control Test YES-OK TO RESULT pt. (Internal QC)
[2022-03-11 23:49] LABS: ROM Patient Test Negative (Negative)
[2022-03-11 23:53] LABS: Bacteria 1+ /hpf (None Seen)
--- NOTE | 2022-03-12 07:35 | OB.TRI.HP_ITS ---
HPI - General HPI Narrative MATT CHEN, is a 31 F @ 33 + weeks who presents r/o PTL and SROM PFSH PFSH Home Medications levothyroxine 150 mcg PO DAILY 02/17/18 [History Last Taken 03/11/22 10:30] sertraline 50 mg PO DAILY 08/30/18 [History Last Taken 03/11/22 23:00] ondansetron 4 mg PO Q8H PRN PRN #10 tab 05/13/19 [Rx Last Taken Unknown] enoxaparin [Lovenox] 60 mg SUBCUT Q12H 02/24/22 [History Last Taken 03/11/22 15:00] Allergy/AdvReac Type Severity Reaction Status Date / Time green pepper Allergy Severe Anaphylaxis Verified 03/11/22 23:06 latex Allergy Severe Anaphylaxis Verified 03/11/22 23:06 amoxicillin [Amoxicillin] Allergy Hives Verified 02/24/22 18:02 banana Allergy Swelling Verified 02/24/22 18:04 [place] And Derivatives Allergy Other Verified 02/24/22 18:04 nalbuphine HCl [From Nubain] Allergy Hives Verified 02/24/22 18:02 Social History Smoking Status: Never smoker History Elective abortions Hx Para 3 Spontaneous abortions Hx # Term Pregnancies Ectopic pregnancies Hx # Pregnancies Multiple births # of living children NST FHR Rate Baby A Baseline: 140 Variability:: Moderate Accelerations:: 15 x 15 Decelerations:: None NST Reactive:: Yes FHR Category:: Category I Uterine Activity:: irregular Assessment & Plan (1) 33 weeks gestation of : (2) contractions: PLAN: @ 33 weeks - false labor , dc home NST reactive
== END 2022-03-12 01:01 | disposition home or self-care (01) ==
LOC: WPOUT 22:35 → WP 22:35
PROVIDERS: PCP Family Medicine; Visit Provider Obstetrics & Gynecology
DX: O60.03 Preterm labor without delivery, third trimester (principal); Z3A.33 33 weeks gestation of pregnancy
CPT/HCPCS: 59025; 59050; 81001; 84112; 99218; G0378

== ENCOUNTER 2025-07-31 19:50 | Emergency (ER) | payer SELFPAY ==
[2025-07-31 19:51] VITALS: BP 127/71; PULSE 73; RESP 18; TEMP 36.8; O2SAT 100
--- NOTE | 2025-07-31 20:21 | ED.RN ---
Pt stating her was going to take her to [place] d/t a wait here and doctors being located at [place].
--- OUTSIDE RECORDS SUMMARY | 2025-07-31 20:31 | XMS RPT_ITS | CCD ---
Author Organization [facility] Care Team Providers Care Photographic Supervisor Name Role Phone Ravinder Babb MD Primary Care Provider Ravinder Babb MD Primary Care Provider Provider Madalyn CARDENAS Unavailable Unavailable Tamiko SANITATION OFFICER.MARCOS, Leora Unavailable Mini Crystal PA-C Unavailable [phone] PRAFUL GUAJARDO Attending Unavailable PRAFUL GUAJARDO Admitting Unavailable RAVINDER BABB Primary Care Unavailable Ann Dickinson PA-C Unavailable [phone] Ann Dickinson PA-C Primary Care Provider Praful Guajarod MD Unavailable Ravinder Babb MD Primary Care Provider [phone] RAVINDER BABB Primary Care Unavailable KWABENA LAI Attending Unavailable RUDERT, ANN Attending Unavailable SUHAIL ANGUIANO Referring Unavailable RAVINDER BABB Primary Care Unavailable NEGROERTANN Attending Unavailable RUDERT, ANN Primary Care Unavailable Lonaoble SANITATION OFFICER.Leora RODRÍGUEZ Unavailable Mini Crystal PA-C Unavailable NATA VALLE Attending Unavailable RUDERT, ANN Primary Care Unavailable RUDERT, ANN Primary Care Unavailable NATA VALLE Attending Unavailable RAVINDER DUNCAN Referring Unavailable RUDERT, ANN Primary Care Unavailable NATA VALLE Attending Unavailable MAGGIE LUNDBERG Referring Unavailable RUDERT, ANN Primary Care Unavailable PRAFUL GUAJARDO Attending Unavailable SELF Referring Unavailable RAVINDER BABB Primary Care Unavailable RAVINDER BABB Primary Care Unavailable RUDERT, ANN Referring Unavailable RUDERT, ANN Primary Care Unavailable JOSE VALLEA Referring Unavailable RUDERT, ANN Primary Care Unavailable QUATROMONI, PRAFUL Referring Unavailable RUDERT, ANN Primary Care Unavailable MASCI, MARIA M A Referring Unavailable RUDERT, ANN Primary Care Unavailable QUATROMONI, PRAFUL Attending Unavailable QUATROMONI, PRAFUL Referring Unavailable RUDERT, ANN Primary Care Unavailable PACHUTA, MAGGIE Referring Unavailable RUDERT, ANN Primary Care Unavailable CHANG DIGGS Attending Unavailable PACHUTA, MAGGIE Referring Unavailable RUDERT, ANN Primary Care Unavailable CHANG DIGGS Attending Unavailable MASCI, MARIA M A Referring Unavailable RUDERT, ANN Primary Care Unavailable THAIS MISHRA Attending Unavailable PACHUTA, MAGGIE Referring Unavailable RUDERT, ANN Primary Care Unavailable CHANG DIGGS Attending Unavailable PACHUTA, MAGGIE Referring Unavailable RUDERT, ANN Primary Care Unavailable QUATROMONI, PRAFUL Admitting Unavailable QUATROMONI, PRAFUL Attending Unavailable RUDERT, ANN Primary Care Unavailable MASCI, MARIA M A Attending Unavailable SIKNNY, RAVINDER A Referring Unavailable SKINNY, RAVINDER A Primary Care Unavailable SKINNY, RAVINDER A Referring Unavailable SKINNY, RAVINDER A Primary Care Unavailable SKINNY, RAVINDER A Referring Unavailable SKINNY, RAVINDER A Primary Care Unavailable QUATROMONI, PRAFUL Referring Unavailable SKINNY, RAVINDER A Primary Care Unavailable SKINNY, RAVINDER A Primary Care Unavailable MK STONE Attending Unavailable PACHUTA, MAGGIE Referring Unavailable RUDERT, ANN Primary Care Unavailable RAVINDER DUNCAN Attending Unavailable RUDERT, ANN Primary Care Unavailable DIANE MEJIA Referring Unavailable SKINNY, RAVINDER A Primary Care Unavailable LEORA BALDERAS Referring Unavailable SKINNY, RAVINDER A Primary Care Unavailable KAIT STUBBS Attending Unavailable SKINNY, RAVINDER A Primary Care Unavailable ALCH, JAINISM Referring Unavailable SKINNY, RAVINDER A Primary Care Unavailable JOSE VALLEA Attending Unavailable ALCH, JAINISM Referring Unavailable SKINNY, RAVINDER A Primary Care Unavailable QUATROMONI, PRAFUL Referring Unavailable RUDERT, ANN Primary Care Unavailable MASCI, MARIA M A Referring Unavailable RUDERT, ANN Primary Care Unavailable MASCI, MARIA M A Referring Unavailable RUDERT, ANN Primary Care Unavailable CHANG DIGGS Attending Unavailable MASCI, MARIA M A Referring Unavailable RUDERT, ANN Primary Care Unavailable QUATROMONI, PRAFUL Referring Unavailable RUDERT, ANN Primary Care Unavailable VALLE, NATA Referring Unavailable SKINNY, RAVINDER A Primary Care Unavailable VALLE, NATA Referring Unavailable SKINNY, RAVINDER A Primary Care Unavailable VALLE, NATA Attending Unavailable SKINNY, RAVINDER A Referring Unavailable SKINNY, RAVINDER A Primary Care Unavailable JONNY TERRAZAS Attending Unavailable SKINNY, RAVINDER A Primary Care Unavailable RUDERT, ANN Referring Unavailable RUDERT, ANN Primary Care Unavailable ELOISE WORTHY Attending Unavailable RUDERT, ANN Primary Care Unavailable PRAFUL GUAJARDO Referring Unavailable RUDERT, ANN Primary Care Unavailable WORTHYELOISE Referring Unavailable RUDERT, ANN Primary Care Unavailable WORTHY ELOISE Referring Unavailable RUDERT, ANN Primary Care Unavailable JACKIEIMARIA M A Attending Unavailable SKINNY, RAVINDER A Referring Unavailable RUDERT, ANN Primary Care Unavailable CHANG DIGGS Attending Unavailable PACHUTA, MAGGIE Referring Unavailable RUDERT, ANN Primary Care Unavailable MASCI, MARIA M A Referring Unavailable RUDERT, ANN Primary Care Unavailable MASCI, MARIA M A Referring Unavailable RUDERT, ANN Primary Care Unavailable Alyce'ESTEFANIA HARRIS Attending Unavailable SKINNY, RAVINDER A Referring Unavailable SKINNY, RAVINDER A Primary Care Unavailable O'STEVENESTEFANIA LYNN Attending Unavailable SKINNY, RAVINDER A Referring Unavailable SKINNY, RAVINDER A Primary Care Unavailable PACHUTA, MAGGIE Referring Unavailable RUDERT, ANN Primary Care Unavailable CHANG DIGGS Attending Unavailable PACHUTA, MAGGIE Referring Unavailable RUDERT, ANN Primary Care Unavailable PACHUTA, MAGGIE Referring Unavailable RUDERT, ANN Primary Care Unavailable Alyce'ESTEFANIA HARRIS Attending Unavailable SKINNY, RAVINDER A Referring Unavailable SKINNY, RAVINDER A Primary Care Unavailable CHANG DIGGS Attending Unavailable PACHUTA, MAGGIE Referring Unavailable RUDERT, ANN Primary Care Unavailable PRAFUL GUAJARDO Attending Unavailable VALLE, NATA Referring Unavailable SKINNY, RAVINDER A Primary Care Unavailable MASCI, MARIA M A Referring Unavailable RUDERT, ANN Primary Care Unavailable PACHUTA, MAGGIE Referring Unavailable RUDERT, ANN Primary Care Unavailable VALLE NATA Attending Unavailable VALLE, NATA Referring Unavailable RUDERT, ANN Primary Care Unavailable AL GUAJARDON Attending Unavailable SELF Referring Unavailable RUDERT, ANN Primary Care Unavailable KAIT STUBBS Attending Unavailable RUDERT, ANN Primary Care Unavailable MARIA M QUARLES Referring Unavailable RAVINDER BABB A Primary Care Unavailable RAVINDER BABB A Primary Care Unavailable ALBA NATION Attending Unavailable RUDERT ANN Primary Care Unavailable RUDERT, ANN Primary Care Unavailable RAVINDER BABB A Primary Care Unavailable JETHRO WADDELL Admitting Unavailable JETHRO WADDELL Attending Unavailable MARIPOSA MILLER Consulting Unavailable RAVINDER BABB Primary Care Unavailable RUDKRISTINA, ANN Primary Care Unavailable ANIVAL PIZARRO Attending Unavailable SANDER BABBREY A Primary Care Unavailable KOREY GRANDA Attending Unavailable Allergies Allergy Classification Reported Allergen(s) Allergy Type Date of Onset Reaction(s) Facility (20 sources) Amoxicillin; Translations: [AMOXICILLIN] Drug Allergy 6 Hives, Swelling [facility] Work Phone: (20 sources) hydrOXYzine; Translations: [HYDROXYZINE] Drug Allergy 0 Other: See Comments [facility] Work Phone: [phone] (20 sources) Latex; Translations: [LATEX] Propensity to adverse reactions 5 Hives, Anaphylaxis [facility] Work Phone: [phone] (20 sources) Nalbuphine; Translations: [NALBUPHINE HCL] Drug Allergy 2 Rash [facility] Work Phone: [phone] (20 sources) Omeprazole; Translations: [OMEPRAZOLE] Drug Allergy 0 Other: See Comments [facility] Work Phone: [phone] (20 sources) Banana Extract; Translations: [BANANA] Drug Allergy 2 Swelling [facility] (20 sources) [place] fruit; Translations: [CITRUS AND DERIVATIVES] Allergy to substance 2 Other: See Comments [facility] (20 sources) green pepper Allergy to substance 2 Anaphylaxis, Other: See Comments [facility] (20 sources) Pereira Pepper; Translations: [PEREIRA PEPPER] Drug Allergy 2 Anaphylaxis, Other: See Comments [facility] (20 sources) Sertraline; Translations: [SERTRALINE] Drug Allergy 3 Other: See Comments [facility] Work Phone: (20 sources) avocado allergenic extract; Translations: [AVOCADO] Drug Allergy 4 Itching [facility] (20 sources) carrot allergenic extract; Translations: [CARROT] Drug Allergy 4 Itching [facility] (20 sources) Kiwi; Translations: [KIWI] Drug Allergy 4 Itching [facility] Medications Current Medications Medication Drug Class(es) Dates Sig (Normalized) Sig (Original) acetaminophen 500 mg oral tablet (20 sources) Start: 02-03-2025 take 2 tablets by mouth every six hours in the morning acetaminophen (TYLENOL) 500 mg tablet Take 2 tablets by mouth every 6 hours. 90 tablet 02/04/2025 9:28 AM EDT 02/03/2025 Active End: 02-03-2025 take 1 tablet by mouth every eight hours as needed acetaminophen (TYLENOL EXTRA STRENGTH) 500 mg tablet Take 500 mg by mouth every 8 hours as needed. 02/03/2025 Discontinued apixaban 5 mg oral tablet (20 sources) Factor Xa Inhibitor Start: 06-03-2024 End: 08-25-2025 take 1 tablet by mouth twice daily apixaban (ELIQUIS) 5 mg tab(s) Take 1 tablet by mouth two times a day. 180 tablet 3 05/31/2025 Active Start: 06-03-2024 End: 07-03-2024 take 2 tablets by mouth twice daily, then take 1 tablet by mouth twice daily apixaban (ELIQUIS DVT-PE TREAT 30D START) 5 mg (74 tabs) Take 2 tablets (10 mg) by mouth twice daily for 7 days. Then take 1 tablet (5 mg) by mouth twice daily for 23 days 74 tablet 06/03/2024 07/03/2024 Active Start: 12-23-2023 End: 01-22-2024 take 1 tablet by mouth twice daily apixaban (ELIQUIS) 5 mg tab(s) Indications: PE (pulmonary thromboembolism) (HCC) Take 1 tablet by mouth two times a day. 60 tablet 5 12/23/2023 01/22/2024 Discontinued (Other) Comment on above: Take 1 tablet by olivia th two times a day. Blood-Glucose Meter (3 sources) Start: 05 End: Blood-Glucose Meter Indications: Abnormal maternal glucose tolerance, antepartum 1 Each as directed for 1 day. 1 Each 0 02/05/2022 02/06/2022 Active Comment on above: 1 Each as directed f or 1 day. [id number] 0.3 ml EPINEPHrine 1 mg/ml auto-injector (20 sources) alpha-Adrenergic Agonist, beta-Adrenergic Agonist, Catecholamine Start: End: EPINEPHrine (AUVI-Q) 0.3 mg/0.3 mL auto-injector Indications: Allergic reaction, subsequent encounter Inject 0.3 mL intramuscularly as needed (for allergic reaction.Seek emergent medical care immediately after use.Dispense:2 2-packs). 2 Each 1 01/08/2024 Active Comment on above: Inject 0.3 mL intram uscularly as needed (for allergic reaction.Seek emergent medical care immediately after use.Dispense:2 2-packs). famotidine 20 mg oral tablet (1 source) Histamine-2 Receptor Antagonist Start: End: take 1 tablet by mouth twice daily famotidine (PEPCID) 20 mg tablet Take 1 tablet by mouth two times a day for 3 doses. 3 tablet 0 01/06/2024 01/08/2024 Active Comment on above: Take 1 tablet by olivia th two times a day for 3 doses. Inhalational Spacing Device (1 source) Start: End: Inhalational Spacing Device Indications: Paradoxical vocal cord motion disorder 1 Device one time only for 1 dose. 1 Each 0 01/08/2024 01/08/2024 Active Comment on above: 1 Device one time on ly for 1 dose. levothyroxine sodium 0.1 mg oral tablet (20 sources) l-Thyroxine Start: 025 End: take 1 tablet by mouth once daily levothyroxine (LEVOXYL) 100 mcg tablet Indications: Acquired hypothyroidism Take 1 tablet by mouth once daily. 30 tablet 5 04/04/2025 10/01/2025 Active Start: 02-11-2025 End: 04-04-2025 take 1 tablet by mouth once daily in the morning levothyroxine (SYNTHROID) 88 mcg tablet Take 1 tablet by mouth daily at 6 am. 30 tablet 02/11/2025 04/04/2025 Discontinued Start: 11-30-2024 End: 02-28-2025 take 1 tablet by mouth once daily levothyroxine (LEVOXYL) 100 mcg tablet Indications: Acquired hypothyroidism Take 1 tablet by mouth once daily. 30 tablet 2 11/30/2024 02/10/2025 Discontinued Start: 09-16-2024 End: 11-30-2024 take 1 tablet by mouth once daily for thyroid dysfunction levothyroxine (LEVOXYL) 88 mcg tablet Indications: Acquired hypothyroidism Take 1 tablet by mouth once daily. Take on empty stomach. For Thyroid 90 tablet 09/16/2024 11/30/2024 Discontinued Start: 04-21-2023 End: 09-16-2024 take 1 tablet by mouth once daily levothyroxine (SYNTHROID) 125 mcg tablet Indications: Hypothyroidism, unspecified type Take 1 tablet by mouth once daily. 30 tablet 5 05/10/2024 09/16/2024 Discontinued Start: 06-19-2022 End: 04-21-2023 levothyroxine (SYNTHROID) 10 0 mcg tablet Indications: Hypothyroidism, unspecified type Take 1 tablet by mouth once daily. Thursday- Thursday. Take 1.5 tablet by mouth on Thursday 32 tablet 5 09/30/2022 04/21/2023 Discontinued Start: 03-26-2022 End: 06-19-2022 take 1 tablet by mouth once daily levothyroxine (SYNTHROID) 125 mcg tablet Indications: Hypothyroidism, unspecified type , 25 weeks gestation of take 1 tablet by mouth once daily 30 tablet 0 06/11/2022 06/19/2022 Discontinued Start: 01-15-2022 End: 03-26-2022 take 1 tablet by mouth once daily levothyroxine (SYNTHROID) 150 mcg tablet Indications: Hypothyroidism, unspecified type , 25 weeks gestation of take 1 tablet by mouth once daily 30 tablet 1 03/17/2022 03/26/2022 Discontinued Start: 11-14-2021 End: 01-15-2022 take 1 tablet by mouth once daily levothyroxine (SYNTHROID) 125 mcg tablet Indications: Hypothyroidism, unspecified type , 16 weeks gestation of Take 1 tablet by mouth once daily. 30 tablet 2 11/14/2021 01/15/2022 Discontinued Start: 02-17-2018 take 150 ug by mouth once varun y Levothyroxine Active 150 MCG PO DAILY February 17, 2018 5:43pm Comment on above: Take 1 tablet by olivia th once daily. take 1 tablet by olivia th once daily Take 1 tablet by olivia th once daily. Thursday- Thursday. Take 1.5 tablet by mouth on Thursday methylPREDNISolone (1 source) Corticosteroid Start: 2023 End: 2023 methylPREDNISolone (MEDROL DOSE-PACK) 4 mg Dose-Pack Take as instructed per package. 21 tablet 0 01/06/2024 01/08/2024 Discontinued Comment on above: Take as instructed p er package. oxyCODONE hydrochloride 5 mg oral tablet (3 sources) Opioid Agonist Start: 2024 End: 2024 take 1 tablet by mouth every six hours as needed oxyCODONE IR (ROXICODONE) 5 mg immediate release tablet Indications: Post-op pain Take 1 tablet by mouth every 6 hours as needed for up to 7 days. 28 tablet 02/04/2025 9:28 AM EDT 02/03/2025 02/11/2025 Active perflutren lipid microspheres 1.3 mL in NaCl (PF) 0.9% 10 mL injection (DEFINITY) (10 sources) Start: 2024 End: 2024 perflutren lipid microspheres 1.3 mL in NaCl (PF) 0.9% 10 mL injection (DEFINITY) polymyxin b [id number] unt/ml / trimethoprim 1 mg/ml ophthalmic solution (1 source) Dihydrofolate Reductase Inhibitor Antibacterial, Polymyxin-class Antibacterial Start: 2023 End: 2023 take 1 drop(s) into the eye(s) four times daily trimethoprim-polymyxin (POLYTRIM) 10,000 unit- 1 mg/mL ophthalmic solution Indications: Bacterial conjunctivitis Use 1 Drop in the left eye four times daily for 7 days. 10 mL 0 11/03/2023 11/10/2023 Active Comment on above: Use 1 Drop in the le ft eye four times daily for 7 days. potassium chloride 20 meq extended release oral tablet (20 sources) Start: 2023 take 1 tablet by mouth once daily potassium chloride 20 mEq TbER Take 1 tablet by mouth once daily. 90 tablet 3 09/08/2024 Active Start: 04-20-2023 End: 05-10-2024 take 1 tablet by mouth once daily potassium chloride 20 mEq TbER Take 1 tablet by mouth once daily. 90 tablet 3 05/10/2024 Active Start: 11-10-2018 End: 03-05-2022 take 1 tablet by mouth twice daily potassium chloride 20 mEq TbER Take 1 tablet by mouth twice daily. 60 tablet 11 11/10/2018 03/05/2022 Discontinued Start: 08-30-2018 End: 09-04-2018 take 20 mEq by mouth once daily Potassium Chloride Dis continued 20 MEQ PO DAILY 5 August 30, 2018 7:58am September 04, 2018 1:13am Comment on above: Take 1 tablet by olivia th twice daily. Take 1 tablet by olivia th once daily. 125 ml sodium chloride 9 mg/ml prefilled syringe (10 sources) Start: 02-07-2025 End: 02-14-2025 sodium chloride 0.9 % (flush) 10 mL (BD POSIFLUSH) vitamin b12 1 mg oral lozenge (4 sources) Vitamin B12 Start: 05-19-2025 cyanocobalamin, vitamin B-12, 1,000 mcg lozg Indications: B12 deficiency Dissolve 1 lozenge under the tongue once daily. 90 lozenge 2 05/19/2025 Active Completed/Discontinued Medications Medication Drug Class(es) Dates Sig (Normalized) Sig (Original) [id number] 200 actuat albuterol 0.09 mg/actuat metered dose inhaler (20 sources) beta2-Adrenergic Agonist Start: 01-08-2024 End: 11-04-2024 take 2 puff(s) by inhalation every four hours as needed for wheezing albuterol HFA (PROVENTIL HFA, VENTOLIN HFA) 90 mcg/actuation inhaler Indications: Paradoxical vocal cord motion disorder Inhale 2 Puffs as instructed every 4 hours as needed for wheezing/shortness of breath. 1 Each 3 01/08/2024 11/04/2024 Discontinued Comment on above: Inhale 2 Puffs as in structed every 4 hours as needed for wheezing/shortness of breath. docusate sodium 100 mg oral capsule (20 sources) Start: 02-03-2025 End: 04-04-2025 take 1 capsule by mouth twice daily in the morning docusate sodium (COLACE) 100 mg capsule Take 1 capsule by mouth two times a day. 90 capsule 02/04/2025 9:28 AM EDT 02/03/2025 04/04/2025 Discontinued docusate sodium 50 mg / sennosides, [facility] 8.6 mg oral tablet (18 sources) Start: 02-10-2025 End: 04-04-2025 take 2 tablets by mouth twice daily senna-docusate (SENNA-S) 8.6-50 mg per tablet Take 2 tablets by mouth two times a day. 02/10/2025 04/04/2025 Discontinued 0.6 ml enoxaparin sodium 100 mg/ml prefilled syringe (20 sources) Low Molecular Weight Heparin Start: 03-16-2025 End: 04-05-2025 inject 0.6 mL by subcutaneous injection twice daily enoxaparin (LOVENOX) 60 mg/0.6 mL syrg Inject 0.6 mL subcutaneously two times a day. Inject entire contents of one(1) syringe 03/16/2025 04/05/2025 Discontinued (Course of therapy completed) Start: 03-01-2025 End: 03-16-2025 inject 0.4 mL by subcutaneous injection once daily enoxaparin (LOVENOX) 40 mg/0.4 mL Inject 0.4 mL subcutaneously once daily. Inject entire contents of one(1) syringe 03/01/2025 03/16/2025 Discontinued Start: 10-18-2024 End: 02-10-2025 inject 0.55 mL by subcutaneous injection twice daily enoxaparin (LOVENOX) 60 mg/0.6 mL syrg Indications: Deep vein thrombosis (DVT) of other vein of right upper extremity, unspecified chronicity (HCC) , Chronic deep vein thrombosis (DVT) of other vein of left upper extremity (HCC) Inject 0.55 mL subcutaneously two times a day. Inject entire contents of one(1) syringe 60 Each 5 10/31/2024 02/10/2025 Discontinued Start: 09-14-2024 End: 10-14-2024 inject 0.55 mL by subcutaneous injection twice daily enoxaparin (LOVENOX) 60 mg/0.6 mL syrg Inject 0.55 mL subcutaneously two times a day. 36 mL 09/14/2024 10/14/2024 Suspended Start: 06-03-2024 End: 06-17-2024 inject 0.5 mL by subcutaneous injection every twelve hours enoxaparin (LOVENOX) 60 mg/0.6 mL syrg Inject 0.5 mL subcutaneously every 12 hours for 14 days. 16.8 mL 06/03/2024 06/17/2024 Active Start: 02-24-2022 Enoxaparin (Lo venox) 60 mg/0.6 mL Syringe Active 60 MG SC Q12H February 24, 2022 6:05pm Start: 11-14-2021 End: 01-22-2024 inject 0.55 mL by subcutaneous injection twice daily enoxaparin (LOVENOX) 60 mg/0.6 mL syrg Inject 0.55 mL subcutaneously two times a day. 36 Each 0 01/08/2024 01/22/2024 Discontinued (Other) Start: 05-10-2019 End: 05-15-2019 inject 55 mg by subcutaneous injection twice daily Enoxaparin Discontinued 55 MG SQ TWICE A DAY 10 5 May 10, 2019 3:55pm May 15, 2019 12:08am Comment on above: Inject 0.55 mL subcu taneously twice daily. Inject 0.55 mL subcu taneously two times a day. ibuprofen 400 mg oral tablet (20 sources) Nonsteroidal Anti-inflammatory Drug Start: End: take 400-800 mg by mouth every eight hours as needed ibuprofen (MOTRIN) 400 mg tablet Take 1-2 tablets by mouth every 8 hours as needed for pain. 20 tablet 02/04/2025 9:28 AM EDT 02/03/2025 04/04/2025 Discontinued Start: 04-11-2022 End: 06-04-2023 take 1 tablet by mouth every six hours as needed ibuprofen (MOTRIN) 600 mg tablet Take 1 tablet by mouth every 6 hours as needed for pain. 45 tablet 0 04/11/2022 06/04/2023 Discontinued Comment on above: Take 1 tablet by olivia th every 6 hours as needed for pain. iron polysaccharide/C/B comp (PROTECT IRON LIQUID ORAL) (20 sources) End: 12-26-2022 iron polysaccharide/C/B comp (PROTECT IRON LIQUID ORAL) Take by mouth. 0 12/26/2022 Discontinued iron polysacchar lori/C/B comp (PROTECT IRON LIQUID ORAL) Take by mouth. 0 Active Comment on above: Take by mouth. 10 ml iron sucrose 20 mg/ml injection (3 sources) Parenteral Iron Replacement Start: 05-19-2025 End: 05-19-2025 200 mg, INTRAVENOUS, ONCE, 1 dose, On Thu05/19/25 at 0930 Start: 05-17-2025 End: 05-17-2025 200 mg, INTRAVENOUS, ONCE, 1 dose, On Thu05/17/25 at 1100 Start: 05-08-2025 End: 05-08-2025 200 mg, INTRAVENOUS, ONCE, 1 dose, On Thu05/08/25 at 0830 iron sucrose 200 mg in NaCl 0.9% 100 mL (VENOFER) (1 source) Start: 05-22-2025 End: 05-22-2025 200 mg, INTRAVENOUS, at 200 mL/hr, Administer over 30 Minutes, ONCE, 1 dose, On Thu05/22/25 at 1500, Approx Total Volume - Expires: 05/23/25 @ 1440 VENOFER is preservative FREE. Dose is expressed in mg of ELEMENTAL Iron. methocarbamol 750 mg oral tablet (20 sources) Muscle Relaxant Start: 02-03-2025 End: 04-04-2025 take 1 tablet by mouth three times daily in the morning methocarbamol (ROBAXIN) 750 mg tablet Take 1 tablet by mouth three times a day. 20 tablet 02/04/2025 9:28 AM EDT 02/03/2025 04/04/2025 Discontinued Start: 11-30-2024 End: 01-29-2025 take 1 tablet by mouth every twenty-four hours as needed methocarbamol (ROBAXIN) 500 mg tablet Take 1 tablet by mouth at bedtime as needed. 30 tablet 1 11/30/2024 01/29/2025 2 ml ondansetron 2 mg/ml injection (20 sources) Serotonin-3 Receptor Antagonist Start: 05-22-2025 End: 05-22-2025 4 mg, INTRAVENOUS, ONCE, 1 dose, On Thu05/22/25 at 1500, Give IV push over 2 minutes Start: 05-19-2025 End: 05-19-2025 4 mg, INTRAVENOUS, ONCE, 1 d ose, On Thu05/19/25 at 1030, Give IV push over 2 minutes Start: 10-08-2021 End: 12-26-2022 take 1 tablet by mouth every eight hours as needed ondansetron (ZOFRAN) 4 mg tablet Take 1 tablet by mouth every 8 hours as needed for nausea/vomiting. 30 tablet 1 10/08/2021 12/26/2022 Discontinued Start: 05-13-2019 take 4 mg by mouth e very eight hours as needed Ondansetron Active 4 MG PO EVERY 8 HOURS NEEDED May 13, 2019 10:05am Comment on above: Take 1 tablet by olivia th every 8 hours as needed for nausea/vomiting. phenazopyridine hydrochloride 100 mg oral tablet (20 sources) Start: 2021 End: 2021 take 2 tablets by mouth every eight hours as needed phenazopyridine (PYRIDIUM) 100 mg tablet Take 2 tablets by mouth three times daily as needed. 9 tablet 0 11/15/2021 03/05/2022 Discontinued Comment on above: Take 2 tablets by mo ut three times daily as needed. multivitamin (CLASSIC ) 28 mg iron- 800 mcg tab(s) (20 sources) End: 2023 take 1 tablet by mouth once daily multivitamin (CLASSIC ) 28 mg iron- 800 mcg tab(s) Take 1 tablet by mouth once daily. 0 12/23/2023 Discontinued take 1 tablet by mouth once varun y multivitamin (CLASSIC ) 28 mg iron- 800 mcg tab(s) Take 1 tablet by mouth once daily. 0 Active Comment on above: Take 1 tablet by olivia th once daily. sertraline 25 mg oral tablet (20 sources) Serotonin Reuptake Inhibitor Start: 01-08-2024 End: 01-22-2024 take 1 tablet by mouth once daily sertraline (ZOLOFT) 25 mg tablet Indications: Situational stress Take 1 tablet by mouth once daily. 60 tablet 0 01/08/2024 01/22/2024 Discontinued (Other) Start: 11-13-2021 End: 08-07-2022 take 1 tablet by mouth once daily sertraline (ZOLOFT) 100 mg tablet Take 1 tablet by mouth once daily. 30 tablet 5 08/07/2022 Active Start: 08-30-2018 take 50 mg by mouth once daily Sertraline Active 50 MG PO DAILY August 30, 2018 6:59am Comment on above: Take 1 tablet by olivia th once daily. tropicamide 10 mg/ml ophthalmic solution (1 source) Anticholinergic Start: 12-29-2023 End: 12-29-2023 tropicamide 1 % 1 Drop (MYDRIACYL) Problems Active Problems Problem Classification Problem Date Documented Da te Episodic/Chronic Adjustment disorders (20 sources) Stress; Translations: [Reaction to severe stress, unspecified] Onset: 01-31-2020 11-13-2021 Chronic Allergic reactions (2 sources) Adverse reaction to food; Translations: [Other adverse food reactions, not elsewhere classified, subsequent encounter] 01-22-2024 Episodic Anxiety disorders (20 sources) Generalized anxiety disorder; Translations: [Generalized anxiety disorder] Onset: 07-26-2018 05-18-2019 Chronic Blindness and vision defects (1 source) Bilateral regular astigmatism; Translations: [Regular astigmatism, bilateral] 12-29-2023 Episodic Cardiac dysrhythmias (1 source) Palpitations; Translations: [Palpitations] 05-31-2024 Episodic Coagulation and hemorrhagic disorders (20 sources) Factor II deficiency; Translations: [Hereditary deficiency of other clotting factors] Onset: 06-02-2024 06-04-2024 Chronic Deficiency and other anemia (1 source) Microcytic anemia; Translations: [Iron deficiency anemia, unspecified] Episodic Deficiency and other anemia (1 source) Iron deficiency anemia; Translations: [Iron deficiency anemia, unspecified] 05-18-2025 Episodic Deficiency and other anemia (2 sources) Iron deficiency anemia, unspecified; Translations: [Iron deficiency anemia during (HCC)] Onset: 02-14-2022 Episodic Diabetes or abnormal glucose tolerance complicating ; childbirth; or the puerperium (1 source) Impaired glucose tolerance in ; Translations: [Abnormal glucose complicating ] Episodic Headache; including migraine (4 sources) Headache; Translations: [Headache] Episodic Malaise and fatigue (1 source) Malaise and fatigue; Translations: [Other malaise] Episodic Neoplasms of unspecified nature or uncertain behavior (1 source) Mast cell disorder; 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] 01-22-2024 Episodic Noninfectious gastroenteritis (2 sources) Gastroenteritis; Translations: [Noninfective gastroenteritis and colitis, unspecified] Episodic Nonspecific chest pain (4 sources) Chest pain; Translations: [Chest pain, unspecified] Onset: 02-15-2025 02-15-2025 Episodic Nutritional deficiencies (1 source) Cobalamin deficiency; Translations: [Deficiency of other specified B group vitamins] 05-19-2025 Episodic Other circulatory disease (1 source) Tightness in throat; Translations: [Other specified symptoms and signs involving the circulatory and respiratory systems] 01-22-2024 Episodic Other complications of (20 sources) Anemia during - baby not yet delivered; Translations: [Anemia complicating , first trimester] Onset: 10-16-2021 10-16-2021 Chronic Other complications of (20 sources) Iron deficiency anemia of ; Translations: [Anemia complicating , unspecified trimester] Onset: 02-14-2022 02-14-2022 Chronic Other complications of (20 sources) Anemia of ; Translations: [Anemia complicating , third trimester] Onset: 10-16-2021 Resolved: 04-09-2022 02-07-2022 Chronic Other complications of (1 source) Anemia complicating , unspecified trimester; Translations: [Iron deficiency anemia during (HCC)] Onset: 02-14-2022 Chronic Other complications of (8 sources) High risk ; Translations: [Supervision of high risk , unspecified, second trimester] Episodic Other connective tissue disease (2 sources) Synovial cyst of knee; Translations: [Synovial cyst of popliteal space [Jovel], unspecified knee] Episodic Other eye disorders (2 sources) Pain of bilateral eyes; Translations: [Ocular pain, bilateral] 12-27-2023 Episodic Other eye disorders (1 source) Dry eyes; Translations: [Dry eye syndrome of bilateral lacrimal glands] 12-29-2023 Episodic Other female genital disorders (1 source) Vaginal irritation; Translations: [Other specified noninflammatory disorders of vagina] Episodic Other gastrointestinal disorders (20 sources) Malabsorption - iron; Translations: [Intestinal malabsorption, unspecified] Onset: 02-14-2022 02-14-2022 Chronic Other gastrointestinal disorders (1 source) Intestinal malabsorption, unspecified; Translations: [Iron malabsorption (HCC)] Onset: 02-14-2022 Chronic Other hematologic conditions (1 source) History of anemia; Translations: [Personal history of diseases of the blood and blood-forming organs and certain disorders involving the immune mechanism] Episodic Other hematologic conditions (1 source) Complement level below reference range; Translations: [Other specified abnormalities of plasma proteins] 01-29-2024 Episodic Other injuries and conditions due to external causes (1 source) Allergic reaction; Translations: [Allergy, unspecified, subsequent encounter] 01-08-2024 Episodic Other injuries and conditions due to external causes (4 sources) Hematoma; Translations: [Other injury of unspecified body region, initial encounter] 06-24-2024 Episodic Other injuries and conditions due to external causes (1 source) Injury of right foot; Translations: [Unspecified injury of right foot, initial encounter] 11-21-2024 Episodic Other lower respiratory disease (1 source) Dyspnea; Translations: [Shortness of breath] 01-22-2024 Episodic Other lower respiratory disease (2 sources) Dyspnea on exertion; Translations: [Other forms of dyspnea] 05-10-2024 Episodic Other nervous system disorders (20 sources) Thoracic outlet syndrome; Translations: [Brachial plexus disorders] Onset: 10-25-2024 10-17-2024 Chronic Other nervous system disorders (5 sources) Brachial plexus disorders; Translations: [TOS (thoracic outlet syndrome)] Onset: 11-17-2024 Chronic Other nutritional; endocrine; and metabolic disorders (1 source) H/O: hypothyroidism; Translations: [Personal history of other endocrine, nutritional and metabolic disease] Episodic Other upper respiratory disease (2 sources) Vocal cord dysfunction; Translations: [Other diseases of vocal cords] 01-08-2024 Episodic Phlebitis; thrombophlebitis and thromboembolism (20 sources) Chronic deep venous thrombosis of upper extremity; Translations: [Chronic embolism and thrombosis of deep veins of unspecified upper extremity] Onset: 10-13-2024 10-14-2024 Chronic Residual codes; unclassified (1 source) Gestation period, 24 weeks; Translations: [24 weeks gestation of ] Episodic Residual codes; unclassified (4 sources) Gestation period, 25 weeks; Translations: [25 weeks gestation of ] Episodic Residual codes; unclassified (2 sources) Gestation period, 28 weeks; Translations: [28 weeks gestation of ] Episodic Residual codes; unclassified (2 sources) Gestation period, 30 weeks; Translations: [30 weeks gestation of ] Episodic Residual codes; unclassified (2 sources) Gestation period, 31 weeks; Translations: [31 weeks gestation of ] Episodic Residual codes; unclassified (2 sources) 31 weeks gestation of ; Translations: [ state, incidental] Episodic Residual codes; unclassified (2 sources) Gestation period, 32 weeks; Translations: [32 weeks gestation of ] Episodic Residual codes; unclassified (1 source) Gestation period, 34 weeks; Translations: [34 weeks gestation of ] Episodic Residual codes; unclassified (1 source) Gestation period, 35 weeks; Translations: [35 weeks gestation of ] Episodic Residual codes; unclassified (1 source) Gestation period, 36 weeks; Translations: [36 weeks gestation of ] Episodic Residual codes; unclassified (1 source) Gestation period, 37 weeks; Translations: [37 weeks gestation of ] Episodic Thyroid disorders (20 sources) Acquired hypothyroidism; Translations: [Hypothyroidism, unspecified] Onset: 10-21-2017 11-13-2021 Chronic Unclassified (1 source) Established Patient Onset: 05-16-2025 Past or Other Problems Problem Classification Problem Date Documented Da te Episodic/Chronic Abdominal pain (20 sources) Epigastric pain; Translations: [Epigastric pain] Onset: 01-10-2010 Resolved: 04-09-2022 11-30-2019 Episodic Acute posthemorrhagic anemia (3 sources) Acute posthemorrhagic anemia; Translations: [Acute posthemorrhagic anemia] Onset: 02-28-2025 02-13-2025 Episodic Biliary tract disease (20 sources) Biliary dyskinesia; Translations: [Other specified diseases of gallbladder] Onset: 12-08-2019 Resolved: 04-09-2022 11-13-2021 Episodic Deficiency and other anemia (20 sources) Iron deficiency anemia secondary to inadequate dietary iron intake; Translations: [Other iron deficiency anemias] Onset: 02-14-2022 02-14-2022 Episodic Deficiency and other anemia (1 source) Other iron deficiency anemias; Translations: [Iron deficiency anemia secondary to inadequate dietary iron intake] Onset: 02-14-2022 Episodic Early or threatened labor (20 sources) Uterine contractions present; Translations: [False labor, unspecified] Onset: 04-08-2022 Resolved: 04-09-2022 04-09-2022 Episodic Fluid and electrolyte disorders (20 sources) Hypokalemia; Translations: [Hypokalemia] Onset: 09-24-2018 05-18-2019 Episodic Gastroduodenal ulcer (except hemorrhage) (20 sources) H/O: gastric ulcer; Translations: [Personal history of peptic ulcer disease] Onset: 02-07-2014 Resolved: 07-04-2014 09-30-2021 Episodic Genitourinary symptoms and ill-defined conditions (20 sources) Bacteriuria; Translations: [Bacteriuria] Onset: 01-09-2022 01-09-2022 Episodic Immunizations and screening for infectious disease (20 sources) Group B Streptococcus carrier; Translations: [Carrier of Group B streptococcus] Onset: 09-13-2021 09-13-2021 Episodic Other aftercare (20 sources) Long-term current use of anticoagulant; Translations: [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] Onset: 04-09-2022 04-09-2022 Episodic Other aftercare (4 sources) retirement (current) use of anticoagulants; Translations: [Current use of assisted 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] Onset: 10-13-2024 Episodic Other circulatory disease (1 source) Nevus, non-neoplastic; Translations: [Telangiectasia] Onset: 09-29-2024 Episodic Other complications of ; puerperium affecting management of mother (20 sources) thyroiditis; Translations: [ thyroiditis] Onset: 06-15-2017 Resolved: 09-24-2018 09-24-2018 Episodic Other complications of ; puerperium affecting management of mother (20 sources) Delivery finding; Translations: [Complication of labor and delivery, unspecified] Onset: 04-09-2022 Resolved: 04-11-2022 04-11-2022 Episodic Other complications of (20 sources) History of bacterial infection; Translations: [Supervision of with other poor reproductive or obstetric history, unspecified trimester] Onset: 01-28-2016 08-26-2021 Episodic Other complications of (20 sources) Urinary tract infection in ; Translations: [Unspecified infection of urinary tract in , unspecified trimester] Onset: 02-24-2012 Resolved: 04-09-2022 11-19-2021 Episodic Other complications of (20 sources) Benign gestational thrombocytopenia; Translations: [Other diseases of the blood and blood-forming organs and certain disorders involving the immune mechanism complicating , third trimester] Onset: 02-07-2022 Resolved: 04-09-2022 02-07-2022 Episodic Other complications of (20 sources) Fundal height low for dates; Translations: [Uterine size-date discrepancy, unspecified trimester] Onset: 07-12-2012 Resolved: 02-07-2014 02-07-2014 Episodic Other complications of (2 sources) Nausea and vomiting; Translations: [Vomiting of , unspecified] Onset: 02-07-2014 Resolved: 01-28-2016 09-30-2021 Episodic Other complications of (20 sources) Supervision of with other poor reproductive or obstetric history, unspecified trimester; Translations: [Supervision of other high-risk ] Onset: 02-07-2014 Resolved: 01-28-2016 09-30-2021 Episodic Other complications of (20 sources) Vomiting of , unspecified; Translations: [Unspecified vomiting of , unspecified as to episode of care or not applicable] Onset: 02-07-2014 Resolved: 01-28-2016 09-30-2021 Episodic Other congenital anomalies (20 sources) Congenital anomaly of larynx; 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] Onset: 02-07-2014 Resolved: 01-28-2016 09-30-2021 Chronic Other connective tissue disease (20 sources) Synovial cyst of left popliteal space; Translations: [Synovial cyst of popliteal space [Jovel], left knee] Onset: 05-10-2019 05-10-2019 Episodic Other connective tissue disease (20 sources) Synovial cyst of popliteal space [Jovel], left knee; Translations: [Synovial cyst of popliteal space] Onset: 05-10-2019 05-10-2019 Episodic Other connective tissue disease (1 source) Pain in upper limb Onset: 09-14-2024 Episodic Other connective tissue disease (1 source) Pain in left arm; Translations: [Pain of left upper extremity] Onset: 08-04-2024 Episodic Other hematologic conditions (1 source) Personal history of diseases of the blood and blood-forming organs and certain disorders involving the immune mechanism; Translations: [History of blood clotting factor deficiency] Onset: 11-26-2024 Episodic Other injuries and conditions due to external causes (1 source) Other injury of unspecified body region, initial encounter; Translations: [Hematoma] Onset: 02-28-2025 Episodic Other lower respiratory disease (1 source) Other forms of dyspnea; Translations: [SANDOVAL (dyspnea on exertion)] Onset: 02-01-2025 Episodic Other lower respiratory disease (1 source) Pleurodynia; Translations: [Rib pain] Onset: 11-26-2024 Episodic Other lower respiratory disease (1 source) Shortness of breath; Translations: [Shortness of breath] Onset: 04-26-2025 Episodic Other nervous system disorders (20 sources) Postoperative pain ; Translations: [Other acute postprocedural pain] Onset: 02-02-2025 02-03-2025 Episodic Other nervous system disorders (1 source) Other acute postprocedural pain; Translations: [Post-op pain] Onset: 02-10-2025 Episodic Other nervous system disorders (2 sources) Personal history of other diseases of the nervous system and sense organs; Translations: [History of thoracic outlet syndrome] Onset: 11-26-2024 Episodic Other nutritional; endocrine; and metabolic disorders (1 source) Personal history of other endocrine, nutritional and metabolic disease; Translations: [History of hypothyroidism] Onset: 11-26-2024 Episodic Other and delivery including normal (20 sources) Unplanned ; Translations: [Encounter for supervision of normal , unspecified, unspecified trimester] Onset: 11-08-2009 Resolved: 04-09-2022 11-14-2021 Episodic Other screening for suspected conditions (not mental disorders or infectious disease) (20 sources) Patient encounter status; Translations: [Encounter for screening for diabetes mellitus] Onset: 11-13-2021 Resolved: 04-09-2022 11-13-2021 Episodic Phlebitis; thrombophlebitis and thromboembolism (20 sources) H/O: thrombosis; Translations: [Personal history of other venous thrombosis and embolism] Onset: 06-02-2024 Resolved: 10-14-2024 Episodic Pleurisy; pneumothorax; pulmonary collapse (20 sources) Hemothorax; Translations: [Hemothorax] Onset: 02-05-2025 02-06-2025 Episodic Pulmonary heart disease (20 sources) Pulmonary thromboembolism; Translations: [Other pulmonary embolism without acute cor pulmonale] Onset: 05-10-2019 11-14-2021 Episodic Residual codes; unclassified (20 sources) FH: Congenital anomaly; Translations: [Family history of other congenital malformations, deformations and chromosomal abnormalities] Onset: 08-26-2021 11-13-2021 Episodic Residual codes; unclassified (1 source) Other specified health status; Translations: [Failure of outpatient treatment] Onset: 10-12-2024 Episodic Spondylosis; intervertebral disc disorders; other back problems (1 source) Cervicalgia; Translations: [Neck pain] Onset: 01-12-2025 Episodic Unclassified (1 source) Injury of right foot 11-21-2024 Unclassified (1 source) Preprocedural examination done 12-05-2024 Results Test Name Value Interpretation Reference Range Facility [facility] 07-30-2025 [facility] HNO ID: [id number] Author: MATT MONROE Tech Service: Radiology Author Type: Artificial [employer] Eye Maker Type: [facility] Filed: 07/30/2025 16:29 Note Text: RADIOLOGY SERVICE PROGRESS NOTE DATE OF SERVICE: July 30, 2025 TIME OF SERVICE: 1620 EVENT: SCAN DELAY- WAITING ON HCG RESULT ADDITIONAL EVENT DETAILS: N/A SIGNATURE: Marysol Ramirez PATIENT NAME: Matt Baum DATE: July 30, 2025 TIME: 4:28 PM PAGER/CONTACT #: Normal [facility] CBC W Auto Differential pane l (Bld)on 07-30-2025 Basophils (Bld) [#/Vol] 10*3/uL Normal <0.11 [facility] Comment on above: Order Comment: Jose polanco Type: BLOOD SPECIMENOrdering Facility: [facility] Address: [address] [place] [address] Performed By: #### 5 7021-8 ####[facility] LABORATORYCLIA [id number] [place] [address] [place] Basophils/100 WBC (Bld) 0.4 % Normal [facility] Comment on above: Order Comment: Jose polanco Type: BLOOD SPECIMENOrdering Facility: [facility] Address: [address] [place] [address] Performed By: #### 5 7021-8 ####[facility] LABORATORYCLIA [id number] [address] [place] Differential cell count method Nom (Bld) Auto Normal [facility] Comment on above: Order Comment: Speci men Type: BLOOD SPECIMENOrdering Facility: [facility] Address: [address] [place] [address] Performed By: #### 5 7021-8 ####[facility] LABORATORYCLIA [id number] [place] [address] [place] Eosinophils (Bld) [#/Vol] 0.03 10*3/uL Normal <0.46 [facility] Comment on above: Order Comment: Speci men Type: BLOOD SPECIMENOrdering Facility: [facility] Address: [address] [place] [address] Performed By: #### 5 7021-8 ####[facility] LABORATORYCLIA [id number] [address] [place] Eosinophils/100 WBC (Bld) 0.7 % Normal [facility] Comment on above: Order Comment: Speci men Type: BLOOD SPECIMENOrdering Facility: [facility] Address: [address] [place] [address] Performed By: #### 5 7021-8 ####[facility] LABORATORYCLIA [id number] [address] [place] Erythrocyte distribution width (RBC) [Ratio] 14.7 % Normal 11.5-15.0 [facility] Comment on above: Order Comment: Speci men Type: BLOOD SPECIMENOrdering Facility: [facility] Address: [address] [place] [address] Performed By: #### 5 7021-8 ####[facility]UC[facility] LABORATORYCLIA [id number] [address] [place] Hematocrit (Bld) [Volume fraction] 44.4 % Normal 36.0-46.0 [facility] Comment on above: Order Comment: Speci men Type: BLOOD SPECIMENOrdering Facility: [facility] Address: [address] [place] [address] Performed By: #### 5 7021-8 ####[facility] LABORATORYCLIA [id number] [place] [address] [place] Hemoglobin (Bld) [Mass/Vol] 14.4 g/dL Normal 11.5-15.5 [facility] Comment on above: Order Comment: Speci men Type: BLOOD SPECIMENOrdering Facility: [facility] Address: [address] [place] [address] Performed By: #### 5 7021-8 ####L[facility] LABORATORYCLIA [id number] [place] [address] [place] Immature granulocytes (Bld) [#/Vol] 10*3/uL Normal <0.10 [facility] Comment on above: Order Comment: Speci men Type: BLOOD SPECIMENOrdering Facility: [facility] Address: [address] [place] [address] Performed By: #### 5 7021-8 ####[facility] LABORATORYCLIA [id number] [place] [address] [place] Immature granulocytes/100 WBC (Bld) 0.2 % Normal [facility] Comment on above: Order Comment: Speci men Type: BLOOD SPECIMENOrdering Facility: [facility] Address: [address] [place] [address] Performed By: #### 5 7021-8 ####[facility] LABORATORYCLIA [id number] [place] [address] [place] Lymphocytes (Bld) [#/Vol] 0.93 10*3/uL Low 1.00-4.00 [facility] Comment on above: Order Comment: Speci men Type: BLOOD SPECIMENOrdering Facility: [facility] Address: [address] [place] [address] Performed By: #### 5 7021-8 ####L[facility] LABORATORYCLIA [id number] [address] [place] Lymphocytes/100 WBC (Bld) 20.8 % Normal [facility] Comment on above: Order Comment: Speci men Type: BLOOD SPECIMENOrdering Facility: [facility] Address: [address] [place] [address] Performed By: #### 5 7021-8 ####[facility]UC[facility] LABORATORYCLIA [id number] [address] [place] MCH (RBC) [Entitic mass] 28.3 pg Normal 26.0-34.0 [facility] Comment on above: Order Comment: Speci men Type: BLOOD SPECIMENOrdering Facility: [facility] Address: [address] [place] [address] Performed By: #### 5 7021-8 ####[facility]UC[facility] LABORATORYCLIA [id number] [place] [address] [place] MCHC (RBC) [Mass/Vol] 32.4 g/dL Normal 30.5-36.0 [facility] Comment on above: Order Comment: Speci men Type: BLOOD SPECIMENOrdering Facility: [facility] Address: [address] [place] [address] Performed By: #### 5 7021-8 ####[facility] LABORATORYCLIA [id number] [address] MCV (RBC) [Entitic vol] 87.4 fL Normal 80.0-100.0 [facility] Comment on above: Order Comment: Speci men Type: BLOOD SPECIMENOrdering Facility: [facility] Address: [address] [place] [address] Performed By: #### 5 7021-8 ####[facility] LABORATORYCLIA [id number] [place] [address] [place] Monocytes (Bld) [#/Vol] 0.43 10*3/uL Normal <0.87 [facility] Comment on above: Order Comment: Speci men Type: BLOOD SPECIMENOrdering Facility: [facility] Address: [address] [place] [address] Performed By: #### 5 7021-8 ####[facility] LABORATORYCLIA [id number] [address] [place] Monocytes/100 WBC (Bld) 9.6 % Normal [facility] Comment on above: Order Comment: Speci men Type: BLOOD SPECIMENOrdering Facility: [facility] Address: [address] [place] [address] Performed By: #### 5 7021-8 ####[facility] LABORATORYCLIA [id number] [place] [address] [place] Neutrophils (Bld) [#/Vol] 3.05 10*3/uL Normal 1.45-7.50 [facility] Comment on above: Order Comment: Speci men Type: BLOOD SPECIMENOrdering Facility: [facility] Address: [address] [place] [address] Performed By: #### 5 7021-8 ####[facility] LABORATORYCLIA [id number] [address] [place] Neutrophils/100 WBC (Bld) 68.3 % Normal [facility] Comment on above: Order Comment: Speci men Type: BLOOD SPECIMENOrdering Facility: [facility] Address: [address] [place] [address] Performed By: #### 5 7021-8 ####[facility] LABORATORYCLIA [id number] [place] [address] [place] Nucleated RBC (Bld) [#/Vol] 10*3/uL Normal <0.01 [facility] Comment on above: Order Comment: Speci men Type: BLOOD SPECIMENOrdering Facility: [facility] Address: [address] [place] [address] Performed By: #### 5 7021-8 ####[facility] LABORATORYCLIA [id number] [place] [address] [place] [facility] [place] Nucleated RBC/100 WBC (Bld) [Ratio] 0.0 /[address] [facility] Comment on above: Order Comment: Speci men Type: BLOOD SPECIMENOrdering Facility: [facility] Address: [address] [place] [address] Performed By: #### 5 7021-8 ####[facility] LABORATORYCLIA [id number] [place] [address] [place] Platelet mean volume (Bld) [Entitic vol] 10.7 fL Normal 9.0-12.7 [facility] Comment on above: Order Comment: Speci men Type: BLOOD SPECIMENOrdering Facility: [facility] Address: [address] [place] [address] Performed By: #### 5 7021-8 ####[facility] LABORATORYCLIA [id number] [address] Platelets (Bld) [#/Vol] 171 10*3/uL Normal 150-400 [facility] Comment on above: Order Comment: Speci men Type: BLOOD SPECIMENOrdering Facility: [facility] Address: [address] [place] [address] Performed By: #### 5 7021-8 ####LUCAS LABORATORYCLIA [id number] [address] [place] RBC (Bld) [#/Vol] 5.08 10*6/uL Normal 3.90-5.20 [facility] Comment on above: Order Comment: Speci men Type: BLOOD SPECIMENOrdering Facility: [facility] Address: [address] [place] [address] Performed By: #### 5 7021-8 ####LUCAS LABORATORYCLIA [id number] [address] [place] WBC (Bld) [#/Vol] 4.47 10*3/uL Normal 3.70-11.00 [facility] Comment on above: Order Comment: Speci men Type: BLOOD SPECIMENOrdering Facility: [facility] Address: [address] [place] [address] Performed By: #### 5 7021-8 ####LUCAS LABORATORYCLIA [id number] [address] CTA CHEST (NON GATED) W IVCO N PEon 07-30-2025 CTA CHEST (NON GATED) W IVCON PE * * *Final Report* * * DATE OF EXAM: Jul 30 2025 6:32PM [facility] [place]64 - CTA CHEST (NON GATED) W IVCON PE / PROCEDURE REASON: Pulmonary embolism (PE) suspected, high prob * * * * Physician Interpretation * * * * EXAMINATION: CHEST CTA (NON GATED) WITH CONTRAST (PULMONARY EMBOLISM PROTOCOL) Clinical History: Chest pain Technique: Spiral CT acquisition of the chest from the thoracic inlet to the upper abdomen following IV contrast. Axial 1 and 3 mm thick slices plus coronal and sagittal reformatted images. MQ: CTCP_5 Contrast: 100 mL Omnipaque [address] Radiation dose: Integrated Dose-length product (DLP) for this visit = 261 mGy*cm CT Dose Reduction Employed: Automated exposure control(AEC) and iterative recon CTA: Post-processed images (Maximum intensity Projection (MIP), Volume-rendered (VR), or Surface shaded display images (SSD) were created, reviewed and archived. Comparison: 04/26/2025 RESULT: Limitations: None. Evaluation for thromboembolic disease: - Right heart chambers: No thromboembolic disease. - Main pulmonary arteries: No thromboembolic disease. - Lobar pulmonary arteries: No thromboembolic disease. - Segmental pulmonary arteries: No thromboembolic disease. - Subsegmental pulmonary arteries: No thromboembolic disease. - Additional pulmonary artery findings: The main pulmonary artery is normal in caliber. Lines, tubes, and devices: None. Lung parenchyma and airways: No consolidation. No suspicious pulmonary nodule. The central airways are patent. Pleural space: No pleural effusion. No pleural thickening. Lower neck, lymph nodes, and mediastinum: The imaged thyroid gland is normal. No lymphadenopathy in the supraclavicular, axillary, mediastinal, or hilar regions. Heart, pericardium, and thoracic vessels: The thoracic aorta is normal in caliber. The cardiac chambers are normal in size. No coronary artery atherosclerotic calcifications are noted, although the study is not optimized for coronary assessment. No pericardial effusion or thickening. Bones and soft tissues: No destructive bone lesion. Chest wall is unremarkable. Upper abdomen: No abnormality in the imaged upper abdomen. Localizer images: No additional findings. IMPRESSION: No CT evidence of pulmonary embolism. No evidence of acute intrathoracic pathology. Drug Safety Coordinator: PSCCori Transcribe Date/Time: Jul 30 2025 7:04P Dictated by : LEANNE PARR MD This examination was interpreted and the report reviewed and electronically signed by: LEANNE PARR MD on Jul 30 2025 7:07PM EST [id number] Normal [facility] Comprehensive metabolic 2000 panelon 07-30-2025 Albumin [Mass/Vol] 4.8 g/dL Normal 3.9-4.9 [facility] Comment on above: Order Comment: Speci men Type: BLOOD SPECIMENOrdering Facility: [facility] Address: [facility] [address] Performed By: #### 1 23-9, [id number], 45764-5 ####LUCAS LABORATORYCLIA [id number] [place] [address] [place] ALP [Catalytic activity/Vol] 51 U/L Normal 34-123 [facility] Comment on above: Order Comment: Speci men Type: BLOOD SPECIMENOrdering Facility: [facility] Address: [address] [place] [address] Performed By: #### 1 9122-9, [id number], 76752-4 ####LUCAS LABORATORYCLIA [id number] [place] [address] [place] ALT [Catalytic activity/Vol] 12 U/L Normal 7-38 [facility] Comment on above: Order Comment: Speci men Type: BLOOD SPECIMENOrdering Facility: [facility] Address: [address] [place] [address] Performed By: #### 1 239, [id number], 93102-8 ####LUCAS LABORATORYCLIA [id number] [place] [address] [place] Anion gap [Moles/Vol] 10 mmol/L Normal 8-15 [facility] Comment on above: Order Comment: Speci men Type: BLOOD SPECIMENOrdering Facility: [facility] Address: [address] [place] [address] Performed By: #### 1 23-9, [id number], 98314-2 ####LUCAS LABORATORYCLIA [id number] [place] [address] [place] AST [Catalytic activity/Vol] 15 U/L Normal 13-35 [facility] Comment on above: Order Comment: Speci men Type: BLOOD SPECIMENOrdering Facility: [facility] Address: [address] [place] [address] Performed By: #### 1 23-9, [id number], 87899-3 ####LUCAS LABORATORYCLIA [id number] [place] [address] [place] Bilirubin [Mass/Vol] 0.3 mg/dL Normal 0.2-1.3 [facility] Comment on above: Order Comment: Speci men Type: BLOOD SPECIMENOrdering Facility: [facility] Address: [address] [facility] [address] Performed By: #### 1 9123-9, [id number], 07883-1 ####LUCAS LABORATORYCLIA [id number] [place] [address] [place] Calcium [Mass/Vol] 9.9 mg/dL Normal 8.5-10.2 [facility] Comment on above: Order Comment: Speci men Type: BLOOD SPECIMENOrdering Facility: [facility] Address: [address] [place] [address] Performed By: #### 1 9123-9, [id number], ####LUCAS LABORATORYCLIA [id number] [place] [address] [place] Chloride [Moles/Vol] 104 mmol/L Normal 98-107 [facility] Comment on above: Order Comment: Speci men Type: BLOOD SPECIMENOrdering Facility: [facility] Address: [facility] [place] [address] Performed By: #### 1 9123-9, [id number], ####LUCAS LABORATORYCLIA [id number] [place] [address] [place] CO2 [Moles/Vol] 26 mmol/L Normal 22-30 [facility] Comment on above: Order Comment: Speci men Type: BLOOD SPECIMENOrdering Facility: [facility] Address: [address] [place] [address] Performed By: #### 1 9123-9, [id number], 64646-7 ####LUCAS LABORATORYCLIA [id number] [place] [address] [place] Creatinine [Mass/Vol] 0.79 mg/dL Normal 0.58-0.96 [facility] Comment on above: Order Comment: Speci men Type: BLOOD SPECIMENOrdering Facility: [facility] Address: [address] [place] [address] Performed By: #### 1 9123-9, [id number], 26129-9 ####[facility]LEY LABORATORYCLIA [id number] [place] [address] [place] [facility] eGFRcr SerPlBld CKD-EPI 2020 100 mL/min/1.73m??? Normal >=60 [facility] Comment on above: Order Comment: Jose polanco Type: BLOOD SPECIMENOrdering Facility: [facility] Address: [address] [place] [address] Result Comment: [facility] Glomerular Filtration Rate (eGFR) is calculated using the 2020 CKD-EPI creatinine equation. This equation utilizes serum creatinine, sex, and age as parameters. The creatinine assay has traceable calibration to isotope dilution-mass spectrometry. Refer to KDIGO guidelines for clinical interpretation. In patients with unstable renal function, e.g. those with acute kidney injury, the eGFR may not accurately reflect actual GFR. Performed By: #### 1 9123-9, [id number], 89903-3 ####GREELEY LABORATORYCLIA [id number] [place] [address] [place] [facility] Glucose [Mass/Vol] 105 mg/dL High 74-99 [facility] Comment on above: Order Comment: Jose polanco Type: BLOOD SPECIMENOrdering Facility: [facility] Address: [address] [place] [address] Result Comment: The [place] Diabetes Association (ADA) provides guidance for cutoff values for fasting glucose and random glucose. The ADA defines fasting as no caloric intake for at least 8 hours. Fasting plasma glucose results between 100 to 125 mg/dL indicate increased risk for diabetes (prediabetes). Fasting plasma glucose results greater than or equal to 126 mg/dL meet the criteria for diagnosis of diabetes. In the absence of unequivocal hyperglycemia, results should be confirmed by repeat testing. In a patient with classic symptoms of hyperglycemia or hyperglycemic crisis, random plasma glucose results greater than or equal to 200 mg/dL meet the criteria for diagnosis of diabetes. Reference: Standards of Medical Care in Diabetes 2016, [place] Diabetes Association. Diabetes Care. 2016.39(Suppl 1). Performed By: #### 1 9123-9, [id number], 46181-8 ####GREELEY LABORATORYCLIA [id number] [place] [id number] [place] Potassium [Moles/Vol] 4.2 mmol/L Normal 3.7-5.1 [facility] Comment on above: Order Comment: Speci men Type: BLOOD SPECIMENOrdering Facility: [facility] Address: [address] [place] [address] Performed By: #### 1 9123-9, [id number], 78598-5 ####LUCAS LABORATORYCLIA [id number] [address] [place] Protein [Mass/Vol] 7.7 g/dL Normal 6.3-8.0 [facility] Comment on above: Order Comment: Speci men Type: BLOOD SPECIMENOrdering Facility: [facility] Address: [address] [place] [address] Performed By: #### 1 9123-9, [id number], 68190-0 ####LUCAS LABORATORYCLIA [id number] [address] Sodium [Moles/Vol] 140 mmol/L Normal 136-144 [facility] Comment on above: Order Comment: Speci men Type: BLOOD SPECIMENOrdering Facility: [facility] Address: [address] [place] [address] Performed By: #### 1 9123-9, [id number], 75388-4 ####LUCAS LABORATORYCLIA [id number] [address] Urea nitrogen [Mass/Vol] 7 mg/dL Normal 7-21 [facility] Comment on above: Order Comment: Speci men Type: BLOOD SPECIMENOrdering Facility: [facility] Address: [address] [place] [address] Performed By: #### 1 9123-9, [id number], 51804-6 ####LUCAS LABORATORYCLIA [id number] [address] OF [facility] ECG COMPLETEon 07-30-2025 ECG COMPLETE Ventricular Rate : 6 7 BPM Atrial Rate : 67 BPM P-R Interval : 124 ms QRS Duration : 80 ms Q-T Interval : 386 ms QTC Calculation(Bazett) : 407 ms Calculated P Pioneer : 22 degrees Calculated R Pioneer : 31 degrees Calculated T Pioneer : 25 degrees NORMAL SINUS RHYTHM NONSPECIFIC T WAVE ABNORMALITY ABNORMAL ECG No Stemi Confirmed by ANIVAL PIZARRO DO ([id number]) on 07/30/2025 5:05:14 PM NAME : MATT BAUM PID : [id number] : 1990 Gender : Female Race : ORD : [id number] Procedure Date : Jul 30 2025 14:15:33 Edit Date : Jul 30 2025 17:05:19 Diagnosis: NORMAL SINUS RHYTHM NONSPECIFIC T WAVE ABNORMALITY ABNORMAL ECG No Stemi Confirmed by ANIVAL PIZARRO DO ([id number]) on 07/30/2025 5:05:14 PM Test Reason : Chest Pain Location : 1 : ER ED Overread By : ANIVAL PIZARRO DO Edited By : ANIVAL PIZARRO DO Referred By : , Acquired by : bob [facility] ED NOTEon 07-30-2025 ED NOTE HNO ID: [id number] Author: KEVIN EASLEY RN Service: Behavioral Health Author Type: Registered Nurse Type: ED Notes Filed: 07/30/2025 15:51 Note Text: pt took her own eliquis ok per dr pizarro [facility] ED PROV NOTEon 07-30-2025 ED PROV NOTE HNO ID: [id number] Author: ANIVAL PIZARRO DO Service: Emergency Medicine Author Type: Physician Type: ED Provider Notes Filed: 07/30/2025 22:13 Note Text: ED Provider Note Patient Name: Matt Baum : 1990 SERVICE DATE: 07/30/25 History Patient presents with: Chest Pain Shortness of Breath: Pt presents to the ED from home. PT complaint of Shortness of Breath and chest pain that began on Thursday. PT has HX of clotting disorder, PEs, and in January had a rib removed. PT is on Eliquis. PT has no other complaints at this time. HPI 34-year-old female history of thoracic outlet syndrome, PE, prior DVTs on Eliquis presents today for chest pain in her right chest. Patient states that she woke up this morning and noted chest pain in her right anterior chest that got worse as the day went on. States that she noticed it was worse when she was picking up her daughter who is 3 years old. Denies any shortness of breath, does endorse pleuritic chest pain. Denies any focal weakness or numbness, syncope, LOC. Denies any nausea, vomiting, cough, URI-like symptoms, fever, chills, difficulty ambulating, melena, hematochezia, dysuria, hematuria, abdominal pain. Patient's is at bedside state patient is otherwise at mental status baseline. Patient states that she has not missed any doses of her 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. PAST MEDICAL HISTORY Diagnosis Date Acquired hypothyroidism 10/21/2017 Anemia during in first trimester (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) Family history of defect 08/26/2021 08/26/2021. Patient son born with a cyst on the brain. It was surgically removed when he was 8 years old. 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 PAST SURGICAL HISTORY Procedure Laterality Date APPENDECTOMY TONSILLECTOMY AND ADENOIDECTOMY FAMILY HISTORY Problem Relation Age of Onset Psychiatry Mother BIPOLAR Thyroid Mother Stroke Father Alcohol abuse Father No Known Problems Sister No Known Problems Sister No Known Problems Sister No Known Problems Brother Arthritis Maternal Grandmother Heart Maternal Grandmother Osteoporosis Maternal Grandmother Stroke Maternal Grandmother other (Hypotension) Maternal Grandmother Heart Maternal Grandfather Hypertension Maternal Grandfather Alcohol/Drug Maternal Grandfather Psychiatry Maternal Grandfather BIPOLAR No Known Problems Paternal Grandmother No Known Problems Paternal Grandfather No Known Problems Daughter No Known Problems Daughter other (cyst on brain) Son No Known Problems Son No Ocular Disease No Family History Malig Hyperthermia No Family History Social History[1] ALLERGIES Allergen Reactions Pereira Pepper Anaphylaxis, Other: See Comments Latex Anaphylaxis, Hives Amoxicillin Hives, Swelling Banana Swelling Latex Hives Verified by skin testing Nubain [Nalbuphine * Rash Avocado Itching Carrot Itching [place] And Derivati* Other: See Comments Kiwi Itching Hydroxyzine Other: See Comments Extreme fatigue Omeprazole Other: See Comments nausea Sertraline Other: See Comments Bruising, stopped by hematology 12/3022 was interacting with blood thinners Review of Systems Constitutional: Negative for fatigue and fever. HENT: Negative for congestion. Respiratory: Negative for cough and shortness of breath. Cardiovascular: Positive for chest pain. Gastrointestinal: Negative for abdominal pain, diarrhea, nausea and vomiting. Genitourinary: Negative for dysuria. Physical Exam Vitals [07/30/25 1419] BP Pulse Temp Temp src Resp SpO2 Weight Height 139/77 70 36.8 ?C (98.2 ?F) Oral 18 100 % 55 kg (121 lb 4.1 oz) -- Physical Exam Constitutional: General: She is not in acute distress. Appearance: She is not ill-appearing, toxic-appearing or diaphoretic. HENT: Head: Normocephalic. Nose: Nose normal. Mouth/Throat: Mouth: Mucous membranes are moist. Eyes: Pupils: Pupils are equal, round, and reactive to light. Cardiovascular: Rate and Rhythm: Normal rate and regular rhythm. Pulses: Normal pulses. Comments: Warm and well-perfused extremities Pulmonary: Effort: Pulmonary effort is normal. No respiratory distress. Breath sounds: No wheezing. Comments: Clear to auscultation bilaterally with good air movement bilaterally. No conversational dyspnea, no respiratory distress. Abdominal: Palpations: Abdomen is soft. Tenderness: There is no abdominal tenderness. There is no guarding. Comments: Abdomen soft and nontender all quadrants. No satnam (more content not included)... Normal [facility] HCG Preg Ur Qlon 07-30-2025 HCG ( test) Ql (U) Negative Normal Negative [facility] Comment on above: Order Comment: Speci men Type: URINE SPECIMENOrdering Facility: [facility] Address: [address] [place] [address] Result Comment: This test is intended to aid in the early detection of . Very dilute urine samples, as indicated by a low specific gravity, may not contain shared services representative levels of hCG. This test detects intact hCG only. This test does not reliably detect hCG degradation products, including free-beta subunit and beta-core fragment. Therefore, this test may show reduced reactivity in urine after 8 weeks gestation. A number of conditions other than , including trophoblastic disease and certain non-trophoblastic neoplasms cause elevated levels of hCG. As with any assay employing mouse antibodies, the possibility exists for interference by human anti-mouse antibodies (HAMA) in the specimen. The test provides a presumptive diagnosis for . Performed By: #### 2 106-3 ####LUCAS LABORATORYCLIA [id number] [address] HIGH SENSITIVITY TROPONIN T (INITIAL)on 07-30-2025 Troponin T.cardiac High sensitivity method [Mass/Vol] <6 Normal <12 [facility] Comment on above: Order Comment: Speci men Type: BLOOD SPECIMENOrdering Facility: [facility] Address: [address] [place] [address] Performed By: #### 1 9123-9, [id number], 19588-6 ####LUCAS LABORATORYCLIA [id number] [address] HIGH SENSITIVITY TROPONIN T (SECOND)on 07-30-2025 Troponin T.cardiac High sensitivity method [Mass/Vol] <6 Normal <12 [facility] Comment on above: Order Comment: Speci men Type: BLOOD SPECIMENOrdering Facility: [facility] Address: [address] [place] [address] Performed By: #### L [id number] ####LUCAS LABORATORYCLIA [id number] [address] Magnesium SerPl-mCncon 07-30 Magnesium [Mass/Vol] 2.4 mg/dL High 1.7-2.3 [facility] Comment on above: Order Comment: Speci men Type: BLOOD SPECIMENOrdering Facility: [facility] Address: [address] [place] [address] Performed By: #### 1 9123-9, [id number], 30761-6 ####LUCAS LABORATORYCLIA [id number] [address] Urinalysis complete panel (U )on 07-30-2025 Bilirubin Ql (U) Negative Normal Negative [facility] Comment on above: Order Comment: Speci men Type: URINE SPECIMENOrdering Facility: [facility] Address: [address] [place] [address] Performed By: #### 2 4356-8 ####LUCAS LABORATORYCLIA [id number] [place] [address] [place] [facility] [place] Clarity (Unsp spec) Clear Normal Clear [facility] Comment on above: Order Comment: Speci men Type: URINE SPECIMENOrdering Facility: [facility] Address: [address] [place] [address] Performed By: #### 2 4356-8 ####LUCAS LABORATORYCLIA [id number] [place] [id number] [place] Color (U) Yellow Normal Yellow [facility] Comment on above: Order Comment: Speci men Type: URINE SPECIMENOrdering Facility: [facility] Address: [address] [place] [address] Performed By: #### 2 4356-8 ####LUCAS LABORATORYCLIA [id number] [place] [id number] [place] Epithelial cells LM.HPF (Urine sed) [#/Area] Few Normal [facility] Comment on above: Order Comment: Speci men Type: URINE SPECIMENOrdering Facility: [facility] Address: [address] [place] [address] Performed By: #### 2 4356-8 ####LUCAS LABORATORYCLIA [id number] [place] [id number] [facility] [place] Glucose Test strip (U) [Mass/Vol] Negative Normal Negative [facility] Comment on above: Order Comment: Speci men Type: URINE SPECIMENOrdering Facility: [facility] Address: [address] [place] [address] Performed By: #### 2 4356-8 ####LUCAS LABORATORYCLIA [id number] [place] [id number] [place] Hemoglobin Ql (U) Negative Normal Negative [facility] Comment on above: Order Comment: Speci men Type: URINE SPECIMENOrdering Facility: [facility] Address: [address] [place] [address] Performed By: #### 2 4356-8 ####LUCAS LABORATORYCLIA [id number] [place] [address] [place] Ketones Ql (U) Negative Normal Negative [facility] Comment on above: Order Comment: Speci men Type: URINE SPECIMENOrdering Facility: [facility] Address: [address] [place] [address] Performed By: #### 2 4356-8 ####LUCAS LABORATORYCLIA [id number] [address] [place] Leukocyte esterase Test strip Ql (U) Negative Normal Negative [facility] Comment on above: Order Comment: Speci men Type: URINE SPECIMENOrdering Facility: [facility] Address: [address] [place] [address] Performed By: #### 2 4356-8 ####LUCAS LABORATORYCLIA [id number] [address] Nitrite Ql (U) Negative Normal Negative [facility] Comment on above: Order Comment: Speci men Type: URINE SPECIMENOrdering Facility: [facility] Address: [address] [place] [address] Performed By: #### 2 4356-8 ####LUCAS LABORATORYCLIA [id number] [address] [place] [facility] pH (U) 7.0 [pH] Normal 5.0-8.0 [facility] Comment on above: Order Comment: Speci men Type: URINE SPECIMENOrdering Facility: [facility] Address: [address] [place] [address] Performed By: #### 2 4356-8 ####LUCAS LABORATORYCLIA [id number] [address] Protein (U) [Mass/Vol] Negative Normal Negative [facility] Comment on above: Order Comment: Speci men Type: URINE SPECIMENOrdering Facility: [facility] Address: [address] [place] [address] Performed By: #### 2 4356-8 ####LUCAS LABORATORYCLIA [id number] [place] [address] [place] RBC LM.HPF (Urine sed) [#/Area] 0-3 /HPF Normal 0-3 /HPF [facility] Comment on above: Order Comment: Speci men Type: URINE SPECIMENOrdering Facility: [facility] Address: [address] [place] [address] Performed By: #### 2 4356-8 ####LUCAS LABORATORYCLIA [id number] [address] [place] Specific gravity (U) [Rel density] 1.010 Normal 1.005-1.030 [facility] Comment on above: Order Comment: Speci men Type: URINE SPECIMENOrdering Facility: [facility] Address: [address] [place] [address] Performed By: #### 2 4356-8 ####GREELEY LABORATORYCLIA [id number] [place] [address] [place] Urobilinogen Ql (U) 0.2 EU/dL Normal 0.2-1.0 EU/dL [facility] Comment on above: Order Comment: Speci men Type: URINE SPECIMENOrdering Facility: [facility] Address: [address] [place] [address] Performed By: #### 2 4356-8 ####GREELEY LABORATORYCLIA [id number] [place] [address] [place] WBC LM.HPF (Urine sed) [#/Area] 0-5 /HPF Normal 0-5 /HPF [facility] Hospital Comment on above: Order Comment: Speci men Type: URINE SPECIMENOrdering Facility: [facility] Address: [address] [place] [address] Performed By: #### 2 4356-8 ####[facility] LABORATORYCLIA [id number] [place] [address] [place] CNCOon 07-06-2025 CNCO Clinical report posted in error Letter Text Normal [facility] CNPNon 05-22-2025 CNPN Normal [facility] CNTHERAPYon 05-22-2025 CNTHERAPY Normal [facility] CNOVon 05-16-2025 CNOV Normal [facility] US ARM VEIN DVT UNL VAS LABo n 05-16-2025 US ARM VEIN DVT UNL VAS LAB Normal [facility] XR CHEST 2V FRONTAL/LATon XR CHEST 2V FRONTAL/LAT Normal [facility] XR Chest PA and Lateralon IMPRESSION: No acute radiographic abnormality. Drug Safety Coordinator: SNEHAL Transcribe Date/Time: May 16 2025 10:31A Dictated by : USHA BIRD MD This examination was interpreted and the report reviewed and electronically signed by: USHA BIRD MD on May 16 2025 10:32AM [facility] DIVISION OF RADIOLOGY * * *Final Report* * * DATE OF EXAM: May 16 2025 9:56AM JIX [id number] - XR CHEST 2V FRONTAL/LAT / PROCEDURE REASON: TOS (thoracic outlet syndrome) * * * * Physician Interpretation * * * * EXAMINATION: CHEST RADIOGRAPH (2 VIEW FRONTAL & LATERAL) CLINICAL HISTORY: TOS (thoracic outlet syndrome) MQ: XC2_6 EXAM DATE/TIME: 05/16/2025 9:56 AM COMPARISON: 04/26/2025. RESULT: Lines, tubes, and devices: None. Lungs and pleura: No consolidation. No lung mass. No pleural effusion. No pneumothorax. Cardiomediastinal silhouette: Normal cardiomediastinal silhouette. Bones and soft tissues: Status post resection of the left first rib with surgical clips overlying the left thoracic inlet. DIVISION OF RADIOLOGY [facility], [facility]25 * * *Final Report* * * DATE OF EXAM: May 16 2025 9:56AM JIX [id number] - XR CHEST 2V FRONTAL/LAT / PROCEDURE REASON: TOS (thoracic outlet syndrome) * * * * Physician Interpretation * * * * EXAMINATION: CHEST RADIOGRAPH (2 VIEW FRONTAL & LATERAL) CLINICAL HISTORY: TOS (thoracic outlet syndrome) MQ: XC2_6 EXAM DATE/TIME: 05/16/2025 9:56 AM COMPARISON: 04/26/2025. RESULT: Lines, tubes, and devices: None. Lungs and pleura: No consolidation. No lung mass. No pleural effusion. No pneumothorax. Cardiomediastinal silhouette: Normal cardiomediastinal silhouette. Bones and soft tissues: Status post resection of the left first rib with surgical clips overlying the left thoracic inlet. IMPRESSION IMPRESSION: No acute radiographic abnormality. Drug Safety Coordinator: PSCB Transcribe Date/Time: May 16 2025 10:31A Dictated by : USHA BIRD MD This examination was interpreted and the report reviewed and electronically signed by: USHA BIRD MD on May 16 2025 10:32AM EST [facility] Radiology Study observation (narrative) [facility] XR Chest PA and LateralOrder ed By: Ccf Provider on 05-16-2025 [facility] CNTHERAPYon 05-08-2025 CNTHERAPY Normal [facility] Folate SerPl-mCncon 05-08-20 25 Folate [Mass/Vol] 7.7 ng/mL Normal >4.7 [facility] Comment on above: Order Comment: Jose polanco Type: BLOOD SPECIMENOrdering Facility: [facility] Address: [address] [place] [address] Performed By: #### 2 284-8, 9 ####[facility] LABIA [id number] [place] [address] [place] Vit B12 SerPl-ncon 025 Cobalamin (Vitamin B12) [Mass/Vol] 273 pg/mL Normal 232-1245 [facility] Comment on above: Order Comment: Jose polanco Type: BLOOD SPECIMENOrdering Facility: [facility] Address: [address] [place] [address] Performed By: #### 2 284-8, 9 ####[facility]ARE SYSTEMIA [id number] [place] [address] [place] CNOVSPon 05-04-2025 CNOVSP Normal [facility] CNPNon 04-27-2025 CNPN Normal [facility] ALLIED HEALTHon 04-26-2025 ALLIED HEALTH HNO ID: [id number] Author: NATA VÁZQUEZ CT Service: Radiology Author Type: Technologist Type: Allied Health Filed: 04/26/2025 20:27 Note Text: Radiology Service Progress Note DATE OF SERVICE: April 26, 2025 TIME: 8:27 PM PATIENT IDENTITY VERIFICATION COMPLETED USING TWO (2) STANDARD IDENTIFIERS: Name and Date of confirmed by patient verbally and Name and Date of confirmed by identification band. FALL SCREENING: Has the patient had 2 falls in the last year or 1 fall with injury or currently using an Ambulatory Assistive Device (Walker, Cane, Wheelchair, Crutches, etc.)? Emergency Room Patient: Screened in ED PATIENT GENDER DATA: Assigned female at . status: : No status: NO. PATIENT RELEVANT IMPLANT DATA REVIEWED: Not Applicable PATIENT PRESENTS WITH AN IMPLANTABLE OR ATTACHED SENIOR AUTOMATION ENGINEER: No ALLERGIES: Reviewed and unchanged CONTRAST ALLERGY: NO. EXAM: CT -CONTRAST INDUCED NEPHROPATHY RISK FACTORS: Not applicable CREATININE: Creatinine Date Value Ref Range Status 04/26/2025 0.82 0.58 - 0.96 mg/dL Final 02/10/2025 0.65 0.58 - 0.96 mg/dL Final 02/09/2025 0.71 0.58 - 0.96 mg/dL Final Estimated Glomerular Filtration Rate Date Value Ref Range Status 04/26/2025 95 >=60 mL/min/1.73m? Final Comment: Estimated Glomerular Filtration Rate (eGFR) is calculated using the 2020 CKD-EPI creatinine equation. This equation utilizes serum creatinine, sex, and age as parameters. The creatinine assay has traceable calibration to isotope dilution-mass spectrometry. Refer to KDIGO guidelines for clinical interpretation. In patients with unstable renal function, e.g. those with acute kidney injury, the eGFR may not accurately reflect actual GFR. eGFR- Date Value Ref Range Status 11/13/2021 >60 Final P.O.C.T. RESULTS: POC done: Yes, See Lab Tab April 26, 2025 TREATMENT: N/A PERIPHERAL IV DATA: Inpatient - refer to [facility] documentation RADIOLOGY DEPARTMENT: CT; Exam(s) Completed: Chest SIGNATURE: LIZ Yin PATIENT NAME: Matt Baum DATE: April 26, 2025 TIME: 8:[address] [facility] CBC W Auto Differential pane l (Bld)on 04-26-2025 Basophils (Bld) [#/Vol] 10*3/uL Normal <0.11 [facility] Comment on above: Order Comment: Speci men Type: BLOOD SPECIMENOrdering Facility: [facility] Address: [address] [place] [address] Performed By: #### 5 7021-8 ####[facility] LABORATORYCLIA [id number] [place] [address] [place] Basophils/100 WBC (Bld) 0.4 % Normal [facility] Comment on above: Order Comment: Speci men Type: BLOOD SPECIMENOrdering Facility: [facility] Address: [address] [place] [address] Performed By: #### 5 7021-8 ####[facility] LABORATORYCLIA [id number] [place] [address] [place] [facility] [place] Differential cell count method Nom (Bld) Auto Normal [facility] Comment on above: Order Comment: Speci men Type: BLOOD SPECIMENOrdering Facility: [facility] Address: [address] [place] [address] Performed By: #### 5 7021-8 ####[facility] LABORATORYCLIA [id number] [place] [address] [place] Eosinophils (Bld) [#/Vol] 0.03 10*3/uL Normal <0.46 [facility] Comment on above: Order Comment: Speci men Type: BLOOD SPECIMENOrdering Facility: [facility] Address: [address] [place] [address] Performed By: #### 5 7021-8 ####[facility] LABORATORYCLIA [id number] [address] [place] Eosinophils/100 WBC (Bld) 0.6 % Normal [facility] Comment on above: Order Comment: Speci men Type: BLOOD SPECIMENOrdering Facility: [facility] Address: [address] [place] [address] Performed By: #### 5 7021-8 ####[facility] LABORATORYCLIA [id number] [address] [place] Erythrocyte distribution width (RBC) [Ratio] 12.8 % Normal 11.5-15.0 [facility] Comment on above: Order Comment: Speci men Type: BLOOD SPECIMENOrdering Facility: [facility] Address: [address] [place] [address] Performed By: #### 5 7021-8 ####[facility] LABORATORYCLIA [id number] [place] [address] [place] Hematocrit (Bld) [Volume fraction] 37.0 % Normal 36.0-46.0 [facility] Comment on above: Order Comment: Speci men Type: BLOOD SPECIMENOrdering Facility: [facility] Address: [address] [place] [address] Performed By: #### 5 7021-8 ####[facility] LABORATORYCLIA [id number] [place] [address] [place] Hemoglobin (Bld) [Mass/Vol] 11.7 g/dL Normal 11.5-15.5 [facility] Comment on above: Order Comment: Speci men Type: BLOOD SPECIMENOrdering Facility: [facility] Address: [address] [place] [address] Performed By: #### 5 7021-8 ####[facility] LABORATORYCLIA [id number] [place] [address] [place] Immature granulocytes (Bld) [#/Vol] 10*3/uL Normal <0.10 [facility] Comment on above: Order Comment: Speci men Type: BLOOD SPECIMENOrdering Facility: [facility] Address: [address] [place] [address] Performed By: #### 5 7021-8 ####[facility] LABORATORYCLIA [id number] [address] [place] Immature granulocytes/100 WBC (Bld) 0.2 % Normal [facility] Comment on above: Order Comment: Speci men Type: BLOOD SPECIMENOrdering Facility: [facility] Address: [address] [place] [address] Performed By: #### 5 7021-8 ####[facility] LABORATORYCLIA [id number] [place] [address] [place] Lymphocytes (Bld) [#/Vol] 1.41 10*3/uL Normal 1.00-4.00 [facility] Comment on above: Order Comment: Speci men Type: BLOOD SPECIMENOrdering Facility: [facility] Address: [address] [place] [address] Performed By: #### 5 7021-8 ####[facility] LABORATORYCLIA [id number] [address] Lymphocytes/100 WBC (Bld) 28.7 % Normal [facility] Comment on above: Order Comment: Speci men Type: BLOOD SPECIMENOrdering Facility: [facility] Address: [address] [place] [address] Performed By: #### 5 7021-8 ####[facility] LABORATORYCLIA [id number] [address] MCH (RBC) [Entitic mass] 25.6 pg Low 26.0-34.0 [facility] Comment on above: Order Comment: Speci men Type: BLOOD SPECIMENOrdering Facility: [facility] Address: [address] [place] [address] Performed By: #### 5 7021-8 ####[facility] LABORATORYCLIA [id number] [address] MCHC (RBC) [Mass/Vol] 31.6 g/dL Normal 30.5-36.0 [facility] Comment on above: Order Comment: Speci men Type: BLOOD SPECIMENOrdering Facility: [facility] Address: [address] [place] [address] Performed By: #### 5 7021-8 ####[facility] LABORATORYCLIA [id number] [address] MCV (RBC) [Entitic vol] 81.0 fL Normal 80.0-100.0 [facility] Comment on above: Order Comment: Speci men Type: BLOOD SPECIMENOrdering Facility: [facility] Address: [address] [place] [address] Performed By: #### 5 7021-8 ####[facility] LABORATORYCLIA [id number] [address] Monocytes (Bld) [#/Vol] 0.50 10*3/uL Normal <0.87 [facility] Comment on above: Order Comment: Speci men Type: BLOOD SPECIMENOrdering Facility: [facility] Address: [address] [place] [address] Performed By: #### 5 7021-8 ####[facility] LABORATORYCLIA [id number] [place] [address] [place] Monocytes/100 WBC (Bld) 10.2 % Normal [facility] Comment on above: Order Comment: Speci men Type: BLOOD SPECIMENOrdering Facility: [facility] Address: [address] [place] [address] Performed By: #### 5 7021-8 ####[facility] LABORATORYCLIA [id number] [place] [address] [place] Neutrophils (Bld) [#/Vol] 2.94 10*3/uL Normal 1.45-7.50 [facility] Comment on above: Order Comment: Speci men Type: BLOOD SPECIMENOrdering Facility: [facility] Address: [address] [place] [address] Performed By: #### 5 7021-8 ####[facility] LABORATORYCLIA [id number] [place] [address] [place] Neutrophils/100 WBC (Bld) 59.9 % Normal [facility] Comment on above: Order Comment: Speci men Type: BLOOD SPECIMENOrdering Facility: [facility] Address: [address] [place] [address] Performed By: #### 5 7021-8 ####[facility] LABORATORYCLIA [id number] [place] [address] [place] Nucleated RBC (Bld) [#/Vol] 10*3/uL Normal <0.01 [facility] Comment on above: Order Comment: Speci men Type: BLOOD SPECIMENOrdering Facility: [facility] Address: [address] [place] [address] Performed By: #### 5 7021-8 ####[facility] LABORATORYCLIA [id number] [place] [address] [place] Nucleated RBC/100 WBC (Bld) [Ratio] 0.0 /[address] [facility] Comment on above: Order Comment: Speci men Type: BLOOD SPECIMENOrdering Facility: [facility] Address: [address] [place] [address] Performed By: #### 5 7021-8 ####L[facility] LABORATORYCLIA [id number] [place] [id number] [place] Platelet mean volume (Bld) [Entitic vol] 11.0 fL Normal 9.0-12.7 [facility] Comment on above: Order Comment: Speci men Type: BLOOD SPECIMENOrdering Facility: [facility] Address: [address] [place] [address] Performed By: #### 5 7021-8 ####[facility] LABORATORYCLIA [id number] [place] [address] [place] Platelets (Bld) [#/Vol] 183 10*3/uL Normal 150-400 [facility] Comment on above: Order Comment: Speci men Type: BLOOD SPECIMENOrdering Facility: [facility] Address: [address] [place] [address] Performed By: #### 5 7021-8 ####[facility] LABORATORYCLIA [id number] [place] [address] [place] [facility] RBC (Bld) [#/Vol] 4.57 10*6/uL Normal 3.90-5.20 [facility] Comment on above: Order Comment: Speci men Type: BLOOD SPECIMENOrdering Facility: [facility] Address: [address] [place] [address] Performed By: #### 5 7021-8 ####[facility] LABORATORYCLIA [id number] [address] OF [facility] WBC (Bld) [#/Vol] 4.91 10*3/uL Normal 3.70-11.00 [facility] Comment on above: Order Comment: Speci men Type: BLOOD SPECIMENOrdering Facility: [facility] Address: [address] [place] [address] Performed By: #### 5 7021-8 ####[facility] LABORATORYCLIA [id number] [place] [id number] [facility] CTA CHEST (NON GATED) W IVCO N PEon 04-26-2025 CTA CHEST (NON GATED) W IVCON PE * * *Final Report* * * DATE OF EXAM: Apr 26 2025 8:40PM [facility] [place] 0564 - CTA CHEST (NON GATED) W IVCON PE / PROCEDURE REASON: shortness of breath * * * * Physician Interpretation * * * * EXAMINATION: CTA CHEST (NON GATED) W IVCON PE INDICATION: shortness of breath shortness of breath Comparison: 02/06/2025 Technique: Spiral CT acquisition of the chest from the thoracic inlet to the upper abdomen following IV contrast. Axial 1 and 3 mm thick slices plus coronal and sagittal reformatted images. MIPS or 3D surface rendered/reconstructe d images were generated to better assess the vasculature per CT Angiogram protocol. Contrast: 70 mL Omnipaque [address] Radiation dose: Integrated Dose-length product (DLP) for this visit = 269 mGy*cm CT Dose Reduction Employed: Automated exposure control(AEC) and iterative recon FINDINGS: Pulmonary embolism: Motion artifact with subsegmental level, particularly in the lingula and right middle lobe. Otherwise, no evidence of acute pulmonary embolism. Main pulmonary artery is normal caliber. Lungs, pleura: Postsurgical changes of the left lung apex/chest wall and lower neck. Biapical pleural-parenchymal opacity, probably scarring. Stable 4-5 mm right upper lobe nodule. Small left pleural effusion. Lower neck, nodes, mediastinum: No pathologically enlarged nodes. Heart, pericardium, thoracic vessels: Normal heart size and aortic caliber. No pericardial effusion. Upper abdomen: No acute findings. Bones/soft tissues: Postsurgical changes. No acute findings. IMPRESSION: 1. Mild motion artifact. No evidence of acute pulmonary embolism. 2. Small left pleural effusion. Drug Safety Coordinator: SNEHAL Transcribe Date/Time: Apr 26 2025 9:27P Dictated by : MELANIE SHEN MD This examination was interpreted and the report reviewed and electronically signed by: MELANIE SHEN MD on Apr 26 2025 9:37PM EST [id number] Normal [facility] Comprehensive metabolic 2000 panelon 04-26-2025 Albumin [Mass/Vol] 4.4 g/dL Normal 3.9-4.9 [facility] Comment on above: Order Comment: Speci men Type: BLOOD SPECIMENOrdering Facility: [facility] Address: [address] [place] [address] Performed By: #### 3 3762-6, 81414-4, [id number] ####[facility] LABORATORYCLIA [id number] [place] [address] [place] ALP [Catalytic activity/Vol] 46 U/L Normal 34-123 [facility] Comment on above: Order Comment: Speci men Type: BLOOD SPECIMENOrdering Facility: [facility] Address: [address] [place] [address] Performed By: #### 3 3762-6, 12209-6, [id number] ####[facility] LABORATORYCLIA [id number] [place] [address] [place] ALT [Catalytic activity/Vol] 9 U/L Normal 7-38 [facility] Comment on above: Order Comment: Speci men Type: BLOOD SPECIMENOrdering Facility: [facility] Address: [address] [place] [address] Performed By: #### 3 3762-6, 52444-8, [id number] ####[facility] LABORATORYCLIA [id number] [place] [address] [place] Anion gap [Moles/Vol] 10 mmol/L Normal 8-15 [facility] Comment on above: Order Comment: Speci men Type: BLOOD SPECIMENOrdering Facility: [facility] Address: [address] [place] [address] Performed By: #### 3 3762-6, 78002-3, [id number] ####[facility] LABORATORYCLIA [id number] [address] [place] AST [Catalytic activity/Vol] 13 U/L Normal 13-35 [facility] Comment on above: Order Comment: Speci men Type: BLOOD SPECIMENOrdering Facility: [facility] Address: [address] [place] [id number] Performed By: #### 3 3762-6, 12145-9, [id number] ####LUC[facility] LABORATORYCLIA [id number] [place] [address] [place] Bilirubin [Mass/Vol] 0.2 mg/dL Normal 0.2-1.3 [facility] Comment on above: Order Comment: Speci men Type: BLOOD SPECIMENOrdering Facility: [facility] Address: [address] [place] [address] Performed By: #### 3 3762-6, 29162-2, [id number] ####L[facility] LABORATORYCLIA [id number] [place] [address] [place] Calcium [Mass/Vol] 9.2 mg/dL Normal 8.5-10.2 [facility] Comment on above: Order Comment: Speci men Type: BLOOD SPECIMENOrdering Facility: [facility] Address: [address] [place] [address] [place] [address] Performed By: #### 3 3762-6, 96546-7, [id number] ####[facility] LABORATORYCLIA [id number] [place] [address] [place] Chloride [Moles/Vol] 101 mmol/L Normal 98-107 [facility] Comment on above: Order Comment: Speci men Type: BLOOD SPECIMENOrdering Facility: [facility] Address: [address] [place] [address] Performed By: #### 3 3762-6, , [id number] ####L[facility] LABORATORYCLIA [id number] [place] [address] [place] CO2 [Moles/Vol] 26 mmol/L Normal 22-30 [facility] Comment on above: Order Comment: Speci men Type: BLOOD SPECIMENOrdering Facility: [facility] Address: [facility] [place] [address] Performed By: #### 3 3762-6, , [id number] ####LUC[facility] LABORATORYCLIA [id number] [place] [id number] [place] Creatinine [Mass/Vol] 0.82 mg/dL Normal 0.58-0.96 [facility] Comment on above: Order Comment: Speci men Type: BLOOD SPECIMENOrdering Facility: [facility] Address: [address] [place], [place] [address] [address] Performed By: #### 3 3762-6, 80286-2, [id number] ####LUC[facility] LABORATORYCLIA [id number] [place] [address] [place] eGFRcr SerPlBld CKD-EPI 2020 95 mL/min/1.73m??? Normal >=60 [facility] Comment on above: Order Comment: Jose polanco Type: BLOOD SPECIMENOrdering Facility: [facility] Address: [address] [place] [address] Result Comment: Valarie mated Glomerular Filtration Rate (eGFR) is calculated using the 2020 CKD-EPI creatinine equation. This equation utilizes serum creatinine, sex, and age as parameters. The creatinine assay has traceable calibration to isotope dilution-mass spectrometry. Refer to KDIGO guidelines for clinical interpretation. In patients with unstable renal function, e.g. those with acute kidney injury, the eGFR may not accurately reflect actual GFR. Performed By: #### 3 3762-6, 94896-6, [id number] ####[facility] LABORATORYCLIA [id number] [place] [id number] [place] Glucose [Mass/Vol] 99 mg/dL Normal 74-99 [facility] Comment on above: Order Comment: Jose polanco Type: BLOOD SPECIMENOrdering Facility: [facility] Address: [address] [place] [address] Result Comment: The [place] Diabetes Association (ADA) provides guidance for cutoff values for fasting glucose and random glucose. The ADA defines fasting as no caloric intake for at least 8 hours. Fasting plasma glucose results between 100 to 125 mg/dL indicate increased risk for diabetes (prediabetes). Fasting plasma glucose results greater than or equal to 126 mg/dL meet the criteria for diagnosis of diabetes. In the absence of unequivocal hyperglycemia, results should be confirmed by repeat testing. In a patient with classic symptoms of hyperglycemia or hyperglycemic crisis, random plasma glucose results greater than or equal to 200 mg/dL meet the criteria for diagnosis of diabetes. Reference: Standards of Medical Care in Diabetes 2016, [place] Diabetes Association. Diabetes Care. 2016.39(Suppl 1). Performed By: #### 3 3762-6, 90943-3, [id number] ####LUCAS LABORATORYCLIA [id number] [place] [address] [place] Potassium [Moles/Vol] 3.6 mmol/L Low 3.7-5.1 [facility] Comment on above: Order Comment: Jose polanco Type: BLOOD SPECIMENOrdering Facility: [facility] Address: [address] [place] [address] Performed By: #### 3 3762-6, 36223-4, [id number] ####LUC[facility] LABORATORYCLIA [id number] [place], [place] [address] [place] [address] Protein [Mass/Vol] 7.1 g/dL Normal 6.3-8.0 [facility] Comment on above: Order Comment: Speci men Type: BLOOD SPECIMENOrdering Facility: [facility] Address: [address] [place] [address] Performed By: #### 3 3762-6, 37485-2, [id number] ####LUC[facility] LABORATORYCLIA [id number] [place] [address] [place] Sodium [Moles/Vol] 137 mmol/L Normal 136-144 [facility] Comment on above: Order Comment: Speci men Type: BLOOD SPECIMENOrdering Facility: [facility] Address: [address] [place] [address] Performed By: #### 3 3762-6, 40075-5, [id number] ####LUC[facility] LABORATORYCLIA [id number] [place] [address] [place] Urea nitrogen [Mass/Vol] 14 mg/dL Normal 7-21 [facility] Comment on above: Order Comment: Speci men Type: BLOOD SPECIMENOrdering Facility: [facility] Address: [address] [place] [address] Performed By: #### 3 3762-6, 56253-3, [id number] ####LUC[facility] LABORATORYCLIA [id number] [place], [place] [address] [place] ED NOTEon 04-26-2025 ED NOTE HNO ID: [id number] Author: RADHA TORRE RN Service: Nursing Author Type: Registered Nurse Type: ED Notes Filed: 04/26/2025 19:47 Note Text: Assumed care of patient at this time. [facility] ED PROV NOTEon 04-26-2025 ED PROV NOTE HNO ID: [id number] Author: MORGAN KAPADIA MD Service: Emergency Medicine Author Type: Physician Type: ED Provider Notes Filed: 04/27/2025 00:06 Note Text: ED Provider Note Patient Name: Matt Baum : 1990 SERVICE DATE: 04/26/25 History Patient presents with: Difficulty Breathing: Pt presents to ED with complaints of pain with breathing. Had surgery on February 01 and Left lung hemorrhaged on February 05. Pain starting this morning and has gotten worse. Reports dizziness as well 34-year-old female who has history of PE compliant on Eliquis and thoracic outlet syndrome status postsurgical management to the left upper extremity in January of this year complicated by left-sided hemothorax requiring chest tube on postop day 3 presents to the emergency department for 1 day duration of mild gradual onset of shortness of breath today. 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 Has some discomfort across her lower chest wall bilaterally. No other significant chest pain. Denies cough or fever. No abdominal pain or GI distress. No lower extremity swelling or orthopnea. Additional ROS negative as outlined below. History provided by: Medical records and patient full time staff interpreter used: No PAST MEDICAL HISTORY Diagnosis Date Acquired hypothyroidism 10/21/2017 Anemia during in first trimester (HCC) 10/16/2021 Jovel's cyst, left 05/10/2019 Biliary dyskinesia 12/08/2019 Factor II deficiency (HCC) Family history of defect 08/26/2021 08/26/2021. Patient son born with a cyst on the brain. It was surgically removed when he was 6 years old. 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 PE (pulmonary thromboembolism) (HCC) 05/10/2019 05/10/2019 Situational stress 01/31/2020 Thoracic outlet syndrome 10/25/2024 Vocal cord dysfunction Paradoxical VOCAL CORD DYSFUNCTION PAST SURGICAL HISTORY Procedure Laterality Date APPENDECTOMY TONSILLECTOMY AND ADENOIDECTOMY FAMILY HISTORY Problem Relation Age of Onset Psychiatry Mother BIPOLAR Thyroid Mother Stroke Father Alcohol abuse Father No Known Problems Sister No Known Problems Sister No Known Problems Sister No Known Problems Brother Arthritis Maternal Grandmother Heart Maternal Grandmother Osteoporosis Maternal Grandmother Stroke Maternal Grandmother other (Hypotension) Maternal Grandmother Heart Maternal Grandfather Hypertension Maternal Grandfather Alcohol/Drug Maternal Grandfather Psychiatry Maternal Grandfather BIPOLAR No Known Problems Paternal Grandmother No Known Problems Paternal Grandfather No Known Problems Daughter No Known Problems Daughter other (cyst on brain) Son No Known Problems Son No Ocular Disease No Family History Malig Hyperthermia No Family History Social History Tobacco Use Smoking status: Never Smokeless tobacco: Never Tobacco comments: No smoking in family Vaping Use Vaping status: Never Used Substance and Sexual Activity Alcohol use: Not Currently Drug use: No Sexual activity: Yes Partners: Male control/protection: Vasectomy ALLERGIES Allergen Reactions Pereira Pepper Anaphylaxis, Other: See Comments Latex Anaphylaxis, Hives Amoxicillin Hives, Swelling Banana Swelling Latex Hives Verified by skin testing Nubain [Nalbuphine * Rash Avocado Itching Carrot Itching [place] And Derivati* Other: See Comments Kiwi Itching Hydroxyzine Other: See Comments Extreme fatigue Omeprazole Other: See Comments nausea Sertraline Other: See Comments Bruising, stopped by hematology 12/3022 was interacting with blood thinners Review of Systems Constitutional: Negative for fever. Respiratory: Positive for shortness of breath. Negative for cough. Cardiovascular: Negative for chest pain and leg swelling. Gastrointestinal: Negative for abdominal pain, diarrhea, nausea and vomiting. Musculoskeletal: Negative for back pain. Skin: Negative. Neurological: Negative for syncope and light-headedness. Hematological: Bruises/bleeds easily. Psychiatric/Behaviora l: Negative for confusion. Physical Exam Vitals [04/26/250] BP Pulse Temp Temp src Resp SpO2 Weight Height 122/86 85 37.2 ?C (98.9 ?F) Oral 16 97 % 54.4 kg (120 lb) 1.6 m (5' 3) Physical Exam Vitals and nursing note reviewed. Constitutional: General: She is awake. She is not in acute distress. Appearance: Normal appearance. She is well-developed and well-groomed. She is not ill-appearing, toxic-appearing or diaphoretic. HENT: Head: Normocephalic and atraumatic. Cardiovascular: Rate and Rhythm: Normal rate and regular rhythm. Pulses: Normal pulses. Radial pulses are 2+ on the right side and 2+ on the left side. Dorsalis pedis pulses are 2+ on the right side and 2+ on (more content not included)... Normal [facility] EKGon 04-26-2025 Electrocardiogram Ventricular Rate : 7 4 BPM Atrial Rate : 74 BPM P-R Interval : 170 ms QRS Duration : 82 ms Q-T Interval : 374 ms QTC Calculation(Bazett) : 415 ms Calculated P Pioneer : 65 degrees Calculated R Pioneer : 38 degrees Calculated T Pioneer : 30 degrees NORMAL SINUS RHYTHM NORMAL ECG When compared with selected ECG of 02-Jun-2024 09:50, NONSPECIFIC T WAVE ABNORMALITY NO LONGER EVIDENT IN ANTERIOR LEADS Confirmed by MORGAN KAPADIA MD ([id number]) on 04/26/2025 8:16:09 PM NAME : MATT BAUM PID : [id number] : 1990 Gender : Female Race : ORD : Procedure Date : Apr 26 2025 20:10:20 Edit Date : Apr 26 2025 20:16:11 Diagnosis: NORMAL SINUS RHYTHM NORMAL ECG When compared with selected ECG of 02-Jun-2024 09:50, NONSPECIFIC T WAVE ABNORMALITY NO LONGER EVIDENT IN ANTERIOR LEADS Confirmed by MORGAN KAPADIA MD ([id number]) on 04/26/2025 8:16:09 PM Test Reason : Location : 1 : ER ED Overread By : MORGAN KAPADIA MD Edited By : MORGAN KAPADIA MD Referred By : , Acquired by : am, Normal [facility] HCG QUALITATIVEon 04-26-2025 HCG, QUALITATIVE Negative Normal Negative [facility] Comment on above: Order Comment: Speci men Type: BLOOD SPECIMENOrdering Facility: [facility] Address: [address] [place] [address] Performed By: #### H CG ####[facility] LABORATORYCLIA [id number] [address] [place] HIGH SENSITIVITY TROPONIN T (INITIAL)on 04-26-2025 Troponin T.cardiac High sensitivity method [Mass/Vol] <6 Normal <12 [facility] Comment on above: Order Comment: Speci men Type: BLOOD SPECIMENOrdering Facility: [facility] Address: [address] [place] [address] Performed By: #### 3 3762-6, 04700-3, [id number] ####[facility] LABORATORYCLIA [id number] [place] [address] HIGH SENSITIVITY TROPONIN T (SECOND)on 04-26-2025 Troponin T.cardiac High sensitivity method [Mass/Vol] <6 Normal <12 [facility] Comment on above: Order Comment: Jose polanco Type: BLOOD SPECIMENOrdering Facility: [facility] Address: [address] [place] [address] Performed By: #### L [id number] ####[facility] LABORATORYCLIA [id number] [address] NT-proBNP [facility]on [facility]-26 Natriuretic peptide.B prohormone N-Terminal [Mass/Vol] 67 pg/mL Normal <125 [facility] Comment on above: Order Comment: Jose polanco Type: BLOOD SPECIMENOrdering Facility: [facility] Address: [address] [place] [address] Performed By: #### 3 3762-6, 43782-1, [id number] ####[facility] LABORATORYCLIA [id number] [address] PT panel Coag (PPP)on 2024 INR Coag (PPP) [Relative time] 1.0 {INR} Normal 0.9-1.3 [facility] Comment on above: Order Comment: Jose polanco Type: BLOOD SPECIMENOrdering Facility: [facility] Address: [address] [place] [address] Result Comment: Olinda min K Antagonist (VKA) Therapeutic Range: INR 2 to 3 (Target INR of 2.5) Note: For patients treated with VKA drugs, such as warfarin, the [place] [employer] 2012 Guideline recommends a therapeutic INR range of 2 to 3 (target INR of 2.5). This recommendation includes high-risk patients with antiphospholipid syndrome with previous arterial or venous thromboembolism, current-generation mechanical or bioprosthetic aortic heart valve replacement. Note: Patients with mechanical aortic valve replacement and additional risk factors for thromboembolic events (atrial fibrillation, previous thromboembolism, LV dysfunction, hypercoagulable conditions) or an older generation mechanical AVR (i.e., ball in-Cage) or any mechanical MVR should have a INR therapeutic range of 2.5 to 3.5 (target INR of 3). Guyatt GH, et al. Chest 2012, 141:7S-47S Yari LOPEZ, et al. [facility] 2017, 70: 252-289 Performed By: #### 3 4528-0, 99984-9 ####[facility] LABORATORYCLIA [id number] [address] PT Coag (PPP) [Time] 10.9 s Normal 9.7-13.0 [facility] Comment on above: Order Comment: Speci men Type: BLOOD SPECIMENOrdering Facility: [facility] Address: [address] [place] [address] [place] [address] Performed By: #### 3 4528-0, 60030-4 ####G[facility] LABORATORYCLIA [id number] [place] [id number] [facility] XR CHEST 1V FRONTAL PORTon 0 04-26-2025 XR CHEST 1V FRONTAL PORT * * *Final Report* * * DATE OF EXAM: Apr 26 2025 8:30PM MDX 5376 - XR CHEST 1V FRONTAL PORT / PROCEDURE REASON: Shortness of breath * * * * Physician Interpretation * * * * EXAMINATION: CHEST RADIOGRAPH (PORTABLE SINGLE VIEW AP) Exam Date/Time: 04/26/2025 8:30 PM CLINICAL HISTORY: Shortness of breath MQ: XCPR_5 Comparison: 02/28/2025 RESULT: Lines, tubes, and devices: None. Lungs and pleura: No edema, infiltrates, pulmonary nodules or pleural effusions. No pneumothorax. Interval clearing of left apical density. Surgical clips at the left apex Cardiomediastinal silhouette: Stable cardiomediastinal silhouette. Other: . IMPRESSION: No active disease Drug Safety Coordinator: SNEHAL Transcribe Date/Time: Apr 26 2025 8:35P Dictated by : MK FOSTER MD This examination was interpreted and the report reviewed and electronically signed by: MK FOSTER MD on Apr 26 2025 8:38PM EST [id number] Normal [facility] aPTT PPPon 04-26-2025 aPTT Coag (PPP) [Time] 27.2 s Normal 23.0-32.4 [facility] Comment on above: Order Comment: Speci men Type: BLOOD SPECIMENOrdering Facility: [facility] Address: [address] [place] [address] Performed By: #### 3 4528-0, 67141-4 ####LANCE LABORATORYCLIA [id number] [place] [address] [place] [id number] 04-24-2025 [id number] Normal [facility] CNTHERAPYon 04-24-2025 CNTHERAPY Normal [facility] CNTHERAPYon 04-17-2025 CNTHERAPY Normal [facility] Iron and Iron binding capaci ty panelon 04-17-2025 Iron [Mass/Vol] 36 ug/dL Low 41-186 [facility] Comment on above: Order Comment: Speci men Type: BLOOD SPECIMENOrdering Facility: [facility] Address: [address] [place] [address] Performed By: #### 3 051-0, 3016-3, 3024-7, 46407-2 ####[facility] LABCLIA [id number] [place] [address] [place] Iron binding capacity [Mass/Vol] 413 ug/dL High 232-386 [facility] Comment on above: Order Comment: Speci men Type: BLOOD SPECIMENOrdering Facility: [facility] Address: [address] [place] [address] Performed By: #### 3 051-0, 3016-3, 3024-7, 55725-9 ####[facility] LABCLIA [id number] [address] [place] Iron/TIBC [Molar ratio] 8.7 % Low 15.0-57.0 [facility] Comment on above: Order Comment: Speci men Type: BLOOD SPECIMENOrdering Facility: [facility] Address: [address] [place] [address] Performed By: #### 3 051-0, 3016-3, 3024-7, 16160-9 ####[facility] LABCLIA [id number] [place] [id number] [place] T3Free SerPl-mCncon 04-17-20 25 Free T3 [Mass/Vol] 2.4 pg/mL Normal 2.3-4.1 [facility] Comment on above: Order Comment: Jose polanco Type: BLOOD SPECIMENOrdering Facility: [facility] Address: [address] [place] [address] Performed By: #### 3 051-0, 3016-3, 3024-7, 70707-2 ####[facility] LABCLIA [id number] [place] [address] [place] T4 Free SerPl-mCncon 025 Free T4 [Mass/Vol] 1.2 ng/dL Normal 0.9-1.7 [facility] Comment on above: Order Comment: Speci sherri Type: BLOOD SPECIMENOrdering Facility: [facility] Address: [address] [place] [address] Performed By: #### 3 051-0, 3016-3, 3024-7, 55802-3 ####[facility] LABCLIA [id number] [place] [address] [place] TSH SerPl-aCncon 04-17-2025 TSH Qn 4.140 m[IU]/L Normal 0.270-4.200 [facility] Comment on above: Order Comment: Reshmai sherri Type: BLOOD SPECIMENOrdering Facility: [facility] Address: [address] [place] [address] Result Comment: If t he patient is , TSH reference range varies by gestational period:First Trimester (weeks 9-12): 0.180-2.990 mIU/LSecond Trimester: 0.110-3.980 mIU/LThird Trimester: 0.480-4.710 mIU/Jim Ozuna et al. A Practical Approach for the Verifications and Determination of Site- and Trimester-Specific Reference Intervals for Thyroid Function tests in . Thyroid, 2019:29:3:412-420. Dom Nichols, et al. 2017 Guidelines of the [place] Thyroid Association for the Diagnosis and Management of Thyroid Disease during and the . Thyroid, 2017:27:3:315-389. Performed By: #### 3 051-0, 3016-3, 3024-7, 05742-9 ####[facility] LABCLIA [id number] S[facility]HY[facility] PHILLIPSRIO HONDO HOSPITALAngel [address] [place] OF [facility] CNPNon 04-11-2025 CNPN Telephone (CARMPM) MATT BAUM ([id number]) 1990 F Date Time Provider Department 04/11/25 [place] During your visit today, we recorded the following information about you: Morgan Banegas RN 04/11/2025 12:04 PM Signed Eliquis patient assistance Devika Sorto MA 05/31/2025 8:31 AM Signed Faxed provider portion to [facility] successfully. Devika Sorto MA 06/01/2025 2:22 PM Signed This office received notification of approval of Eliquis Free of charge from 06/01/2025 through 05/31/2026 I called pt no answer left vm msg to return call and check mychart Scanned in EPIC Allergies As of Date: 04/11/2025 Noted Allergy Reaction PEREIRA PEPPER 02/24/2022 10 - Anaphylaxis 14 - Other: See Comments LATEX 02/24/2022 10 - Anaphylaxis 4 - Hives AMOXICILLIN 02/04/2006 4 - Hives 7 - Swelling BANANA 02/24/2022 7 - Swelling LATEX 09/15/2005 4 - Hives Comments: Verified by skin testing NUBAIN (NALBUPHINE HCL) 11/25/2011 2 - Rash AVOCADO 01/06/2024 9 - Itching CARROT 01/06/2024 9 - Itching CITRUS AND DERIVATIVES 02/24/2022 14 - Other: See Comments KIWI 01/06/2024 9 - Itching HYDROXYZINE 01/31/2020 14 - Other: See Comments Comments: Extreme fatigue OMEPRAZOLE 01/31/2020 14 - Other: See Comments Comments: nausea SERTRALINE 04/20/2023 14 - Other: See Comments Comments: Bruising, stopped by hematology 12/3022 was interacting with blood thinners Date Reviewed: 04/04/2025 Reviewed by: Ana Farmer LPN - Fully Assessed Reason for Visit: Patient Update [1234] Cmt: [place] [employer] Eliquis Prescriptions as of 06/01/2025 - apixaban (ELIQUIS) 5 mg tab(s) Take 1 tablet by mouth two times a day. - cyanocobalamin, vitamin B-12, 1,000 mcg lozg Dissolve 1 lozenge under the tongue once daily. - levothyroxine (LEVOXYL) 100 mcg tablet Take 1 tablet by mouth once daily. - acetaminophen (TYLENOL) 500 mg tablet Take 2 tablets by mouth every 6 hours. - potassium chloride 20 mEq TbER Take 1 tablet by mouth once daily. 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] 02/07/2014 01/28/2016 History of stomach ulcers [Z87.11] 02/07/2014 07/04/2014 Nausea/vomiting in [O21.9] 02/07/2014 01/28/2016 Group B streptococcal infection in child of eli*02/07/2014 01/28/2016 Hx maternal GBS (group B streptococcus) affecte*01/28/2016 Post thyroiditis [O90.5] 06/15/2017 09/24/2018 Acquired hypothyroidism [E03.9] 10/21/2017 TRUDI (generalized anxiety disorder) [F41.1] 07/26/2018 Hypokalemia [E87.6] 09/24/2018 PE (pulmonary thromboembolism) (HCC) [I26.99] 05/10/2019 Jovel's cyst, left [M71.22] 05/10/2019 Epigastric pain [R10.13] 11/30/2019 04/09/2022 Biliary dyskinesia [K82.8] 12/08/2019 04/09/2022 Situational stress [F43.9] 01/31/2020 Unplanned [Z34.90] 08/26/2021 04/09/2022 Family history of defect [Z82.79] 08/26/2021 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] 09/13/2021 Anemia during in first trimester [O99*10/16/2021 04/09/2022 Well adult exam [Z00.00] 11/13/2021 Encounter for screening for diabetes mellitus [*11/13/2021 04/09/2022 UTI (urinary tract infection) in , ant*11/19/2021 04/09/2022 GBS bacteriuria [R82.71] 01/09/2022 Anemia during in third trimester [O99*02/07/2022 Benign gestational thrombocytopenia in third tr*02/07/2022 04/09/2022 Iron deficiency anemia secondary to inadequate *02/14/2022 Iron deficiency anemia during [O99.01*02/14/2022 Iron malabsorption [K90.9] 02/14/2022 Uterine contractions [O47.9] 04/08/2022 04/09/2022 No leakage of amniotic fluid into vagina [Z03.7*04/08/2022 04/09/2022 Intact amniotic membranes during in t*04/09/2022 04/09/2022 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 [Z79.0*04/09/2022 Indication for care in labor or delivery [O75.9]04/09/2022 04/11/2022 Deep vein thrombosis (DVT) of other vein of rig*06/02/2024 Acute deep vein thrombosis (DVT) of axillary ve*06/02/2024 History of pulmonary embolus (PE) [Z86.711] 06/02/2024 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 [facility] 04-04-2025 [facility] Office Visit (ANIBALYL ) SARIKAMATT Coley ([id number]) 1990 F Date Time Provider Department 04/04/25 11:20 AM ANN DICKINSON During your visit today, we recorded the following information about you: Temperature Pulse Blood pressure Weight 97.7 degrees 77/minute 114/68 54.4 kg Height 1.613 m Ann Dickinson PA-C 04/06/2025 11:08 AM Signed Subjective Nicole Coley Shanediondionicio is a 34-year-old female with a history of hypothyroidism, presenting for follow-up and medication refill. Nicole reports significant hair loss since switching from 100 mcg to 88 mcg of levothyroxine, which she attributes to running out of the 100 mcg dose on Thursday and using the remaining 88 mcg dose until today's appointment. She notes that the hair loss has slowed but was initially substantial, describing it as half of what I have. She denies taking a multivitamin. Nicole also mentions a recent hospitalization lasting 10 days, during which she experienced extreme pain and a syncopal episode. She reports that an x-ray showed her lung was half full, and she was initially told the pain was due to heartburn and anxiety. She denies current chest pain or dyspnea, stating that any pain is not consistent and resolves on its own. She is currently taking Lovenox and expects to switch to Eliquis after a vascular medicine appointment tomorrow. She also takes potassium and Tylenol as needed. Bowel movements are regular without issues. 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) Family history of defect 08/26/2021 08/26/2021. Patient son born with a cyst on the brain. It was surgically removed when he was 6 years old. 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 PAST SURGICAL HISTORY Procedure Laterality Date APPENDECTOMY TONSILLECTOMY AND ADENOIDECTOMY FAMILY HISTORY Problem Relation Age of Onset Psychiatry Mother BIPOLAR Thyroid Mother Stroke Father Alcohol abuse Father No Known Problems Sister No Known Problems Sister No Known Problems Sister No Known Problems Brother Arthritis Maternal Grandmother Heart Maternal Grandmother Osteoporosis Maternal Grandmother Stroke Maternal Grandmother other (Hypotension) Maternal Grandmother Heart Maternal Grandfather Hypertension Maternal Grandfather Alcohol/Drug Maternal Grandfather Psychiatry Maternal Grandfather BIPOLAR No Known Problems Paternal Grandmother No Known Problems Paternal Grandfather No Known Problems Daughter No Known Problems Daughter other (cyst on brain) Son No Known Problems Son No Ocular Disease No Family History Malig Hyperthermia No Family History Social History Tobacco Use Smoking status: Never Smokeless tobacco: Never Tobacco comments: No smoking in family Vaping Use Vaping status: Never Used Substance Use Topics Alcohol use: Not Currently Drug use: No Current Outpatient Medications Medication Sig acetaminophen (TYLENOL) 500 mg tablet Take 2 tablets by mouth every 6 hours. potassium chloride 20 mEq TbER Take 1 tablet by mouth once daily. apixaban (ELIQUIS) 5 mg tab(s) Take 1 tablet by mouth two times a day. levothyroxine (LEVOXYL) 100 mcg tablet Take 1 tablet by mouth once daily. No current facility-administered medications for this visit. Objective BP 114/68 (BP Site: Right Arm, BP Position: Sitting) Pulse 77 Temp 36.5 ?C (97.7 ?F) Ht 5' 3.5 (1.613 m) Wt 120 lb (54.4 kg) LMP 12/13/2024 (Approximate) SpO2 96% BMI 20.92 kg/m? Physical Exam GENERAL: NAD, alert and oriented. SKIN: Unremarkable, no rash or skin lesions. HEAD: Normocephalic. EYES: PERRLA, EOMI, conjunctiva clear. EARS: External ears normal, canals clear, TM's normal. NOSE/SINUSES: Nares normal. Septum midline. OROPHARYNX: Lips, mucosa, and tongue normal, good dentition. No oral lesions noted. NECK: Supple, no lymphadenopathy, normal thyroid, no carotid bruits. LUNGS: Clear to auscultation bilaterally, no wheezes/rhonchi/rales . HEART: Regular rate and rhythm, no murmurs. No ectopy. EXTREMITIES: Normal, no deformities, no skin discoloration, no edema. NEURO: Awake, alert and oriented x3, cranial nerves II-XII grossly intact, normal gait, no involuntary motions. (more content not included)... Normal [facility] CNTHERAPYon 03-27-2025 CNTHERAPY Normal [facility] CNTHERAPYon 03-23-2025 CNTHERAPY Normal [facility] CNTHERAPYon 03-16-2025 CNTHERAPY Normal [facility] THERAPY NTon 03-16-2025 THERAPY NT Normal [facility] CNTHERAPYon 03-08-2025 CNTHERAPY Normal [facility] THERAPY NTon 03-08-2025 THERAPY NT Normal [facility] CNTHERAPYon 03-01-2025 CNTHERAPY Normal [facility] THERAPY NTon 03-01-2025 THERAPY NT Normal [facility] CBC W Auto Differential pane l (Bld)on 02-28-2025 Basophils (Bld) [#/Vol] 0.04 10*3/uL [facility] Basophils/100 WBC (Bld) 1.1 % [facility] Differential cell count method Nom (Bld) Auto [facility] Eosinophils (Bld) [#/Vol] 0.09 10*3/uL [facility] Eosinophils/100 WBC (Bld) 2.4 % [facility] Erythrocyte distribution width (RBC) [Ratio] 13.5 % 11.5 - 15.0 % [facility] Hematocrit (Bld) [Volume fraction] 36.1 % 36.0 - 46.0 % [facility] Hemoglobin (Bld) [Mass/Vol] 11.2 g/dL Low 11.5 - 15.5 g/dL [facility] Immature granulocytes (Bld) [#/Vol] [facility] Immature granulocytes/100 WBC (Bld) 0.3 % [facility] Interpretation and review of laboratory results Abnormal [facility] Lymphocytes (Bld) [#/Vol] 1.36 10*3/uL [facility] Lymphocytes/100 WBC (Bld) 36.4 % [facility] MCH (RBC) [Entitic mass] 27.4 pg 26.0 - 34.0 pg [facility] MCHC (RBC) [Mass/Vol] 31 g/dL 30.5 - 36.0 g/dL [facility] MCV (RBC) [Entitic vol] 88.3 fL 80.0 - 100.0 fL [facility] Monocytes (Bld) [#/Vol] 0.39 10*3/uL [facility] Monocytes/100 WBC (Bld) 10.4 % [facility] Neutrophils (Bld) [#/Vol] 1.85 10*3/uL [facility] Neutrophils/100 WBC (Bld) 49.4 % [facility] Nucleated RBC (Bld) [#/Vol] [facility] Nucleated RBC/100 WBC (Bld) [Ratio] 0 % /100 WBC [facility] Platelet mean volume (Bld) [Entitic vol] 10.6 fL 9.0 - 12.7 fL [facility] Platelets (Bld) [#/Vol] 245 10*3/uL [facility] RBC (Bld) [#/Vol] 4.09 10*6/uL 3.90 - 5.2 0 m/uL [facility] WBC (Bld) [#/Vol] 3.74 10*3/uL [facility] Basophils (Bld) [#/Vol] 0.04 10*3/uL Normal <0.11 [facility] Comment on above: Order Comment: Speci men Type: BLOOD SPECIMENOrdering Facility: [facility] Address: [address] [place] [address] Performed By: #### 5 7021-8 ####[facility] LABCLIA [id number] [place] [address] [place] Basophils/100 WBC (Bld) 1.1 % Normal [facility] Comment on above: Order Comment: Speci men Type: BLOOD SPECIMENOrdering Facility: [facility] Address: [address] [place] [address] Performed By: #### 5 7021-8 ####[facility] LABCLIA [id number] [place] [address] [place] Differential cell count method Nom (Bld) Auto Normal [facility] Comment on above: Order Comment: Speci men Type: BLOOD SPECIMENOrdering Facility: [facility] Address: [address] [place] [address] Performed By: #### 5 7021-8 ####[facility] LABCLIA [id number] [place] [address] [place] Eosinophils (Bld) [#/Vol] 0.09 10*3/uL Normal <0.46 [facility] Comment on above: Order Comment: Speci men Type: BLOOD SPECIMENOrdering Facility: [facility] Address: [address] [place] [address] Performed By: #### 5 7021-8 ####[facility] LABCLIA [id number] [facility] [place] [address] [place] Eosinophils/100 WBC (Bld) 2.4 % Normal [facility] Comment on above: Order Comment: Speci men Type: BLOOD SPECIMENOrdering Facility: [facility] Address: [address] [place] [address] Performed By: #### 5 7021-8 ####[facility] LABCLIA [id number] [address] [address] [place] Erythrocyte distribution width (RBC) [Ratio] 13.5 % Normal 11.5-15.0 [facility] Comment on above: Order Comment: Speci men Type: BLOOD SPECIMENOrdering Facility: [facility] Address: [address] [place] [address] Performed By: #### 5 7021-8 ####[facility] LABIA [id number] [place] [address] [place] Hematocrit (Bld) [Volume fraction] 36.1 % Normal 36.0-46.0 [facility] Comment on above: Order Comment: Speci men Type: BLOOD SPECIMENOrdering Facility: [facility] Address: [address] [place] [address] Performed By: #### 5 7021-8 ####[facility] LABIA [id number] [place] [address] [place] Hemoglobin (Bld) [Mass/Vol] 11.2 g/dL Low 11.5-15.5 [facility] Comment on above: Order Comment: Speci men Type: BLOOD SPECIMENOrdering Facility: [facility] Address: [address] [place] [address] Performed By: #### 5 7021-8 ####[facility] LABCLIA [id number] [place] [address] [place] Immature granulocytes (Bld) [#/Vol] 10*3/uL Normal <0.10 [facility] Comment on above: Order Comment: Speci men Type: BLOOD SPECIMENOrdering Facility: [facility] Address: [address] [place] [address] Performed By: #### 5 7021-8 ####[facility] LABIA [id number] [place] [address] [place] Immature granulocytes/100 WBC (Bld) 0.3 % Normal [facility] Comment on above: Order Comment: Speci men Type: BLOOD SPECIMENOrdering Facility: [facility] Address: [address] [place] [address] Performed By: #### 5 7021-8 ####[facility] LABIA [id number] [place] [address] [place] Lymphocytes (Bld) [#/Vol] 1.36 10*3/uL Normal 1.00-4.00 [facility] Comment on above: Order Comment: Speci men Type: BLOOD SPECIMENOrdering Facility: [facility] Address: [address] [place] [address] Performed By: #### 5 7021-8 ####[facility] LABIA [id number] [place] [address] [place] Lymphocytes/100 WBC (Bld) 36.4 % Normal [facility] Comment on above: Order Comment: Speci men Type: BLOOD SPECIMENOrdering Facility: [facility] Address: [address] [place] [address] Performed By: #### 5 7021-8 ####[facility] LABIA [id number] [place] [address] [place] MCH (RBC) [Entitic mass] 27.4 pg Normal 26.0-34.0 [facility] Comment on above: Order Comment: Speci men Type: BLOOD SPECIMENOrdering Facility: [facility] Address: [address] [place] [address] Performed By: #### 5 7021-8 ####[facility] LABIA [id number] [place] [address] [place] MCHC (RBC) [Mass/Vol] 31.0 g/dL Normal 30.5-36.0 [facility] Comment on above: Order Comment: Speci men Type: BLOOD SPECIMENOrdering Facility: [facility] Address: [address] [place] [address] Performed By: #### 5 7021-8 ####[facility] LABCLIA [id number] [place] [address] [place] MCV (RBC) [Entitic vol] 88.3 fL Normal 80.0-100.0 [facility] Comment on above: Order Comment: Speci men Type: BLOOD SPECIMENOrdering Facility: [facility] Address: [address] [place] [address] Performed By: #### 5 7021-8 ####[facility] LABIA [id number] [place] [address] [place] Monocytes (Bld) [#/Vol] 0.39 10*3/uL Normal <0.87 [facility] Comment on above: Order Comment: Speci men Type: BLOOD SPECIMENOrdering Facility: [facility] Address: [address] [place] [address] Performed By: #### 5 7021-8 ####[facility] LABIA [id number] [place] [address] [place] Monocytes/100 WBC (Bld) 10.4 % Normal [facility] Comment on above: Order Comment: Speci men Type: BLOOD SPECIMENOrdering Facility: [facility] Address: [address] [place] [address] Performed By: #### 5 7021-8 ####[facility] LABIA [id number] [place] [id number] [place] Neutrophils (Bld) [#/Vol] 1.85 10*3/uL Normal 1.45-7.50 [facility] Comment on above: Order Comment: Speci men Type: BLOOD SPECIMENOrdering Facility: [facility] Address: [address] [place] [address] Performed By: #### 5 7021-8 ####[facility] LABCLIA [id number] [place] [address] [place] Neutrophils/100 WBC (Bld) 49.4 % Normal [facility] Comment on above: Order Comment: Speci men Type: BLOOD SPECIMENOrdering Facility: [facility] Address: [address] [place] [address] Performed By: #### 5 7021-8 ####[facility] LABCLIA [id number] [place] [address] [place] Nucleated RBC (Bld) [#/Vol] 10*3/uL Normal <0.01 [facility] Comment on above: Order Comment: Speci men Type: BLOOD SPECIMENOrdering Facility: [facility] Address: [address] [place] [address] Performed By: #### 5 7021-8 ####[facility] LABIA [id number] [place] [address] [place] Nucleated RBC/100 WBC (Bld) [Ratio] 0.0 /100 WBC Normal [facility] Comment on above: Order Comment: Speci men Type: BLOOD SPECIMENOrdering Facility: [facility] Address: [address] [place] [address] Performed By: #### 5 7021-8 ####[facility] LABIA [id number] [place] [id number] [place] Platelet mean volume (Bld) [Entitic vol] 10.6 fL Normal 9.0-12.7 [facility] Comment on above: Order Comment: Speci men Type: BLOOD SPECIMENOrdering Facility: [facility] Address: [address] [place] [address] Performed By: #### 5 7021-8 ####[facility] LABIA [id number] [place] [id number] [place] Platelets (Bld) [#/Vol] 245 10*3/uL Normal 150-400 [facility] Comment on above: Order Comment: Speci men Type: BLOOD SPECIMENOrdering Facility: [facility] Address: [address] [place] [address] Performed By: #### 5 7021-8 ####[facility] LABCLIA [id number] [place] [address] [place] RBC (Bld) [#/Vol] 4.09 10*6/uL Normal 3.90-5.20 [facility] Comment on above: Order Comment: Speci men Type: BLOOD SPECIMENOrdering Facility: [facility] Address: [address] [place] [address] Performed By: #### 5 7021-8 ####[facility] LABCLIA [id number] [place] [address] [place] WBC (Bld) [#/Vol] 3.74 10*3/uL Normal 3.70-11.00 [facility] Comment on above: Order Comment: Speci men Type: BLOOD SPECIMENOrdering Facility: [facility] Address: [address] [place] [address] Performed By: #### 5 7021-8 ####[facility] LABIA [id number] [place] [address] [place] CNOVon 02-28-2025 CNOV Normal [facility] CNOV Normal [facility] US ARM VEIN DVT SARA VAS LABo n 02-28-2025 US ARM VEIN DVT [facility] LAB Normal [facility] XR CHEST 2V FRONTAL/LATon XR CHEST 2V FRONTAL/LAT Normal [facility] XR Chest PA and Lateralon IMPRESSION: Compared to 02/15/2025, interval improvement without resolution of a lentiform opacity at the left apex, likely secondary to a fluid collection which may be pleural or extrapleural in origin. Radiographic follow-up is suggested. Drug Safety Coordinator: SNEHAL Transcribe Date/Time: Feb 28 2025 5:07P Dictated by : JENNIFER DEAN MD This examination was interpreted and the report reviewed and electronically signed by: JENNIFER DEAN MD on Feb 28 2025 5:08PM [facility] DIVISION OF RADIOLOGY * * *Final Report* * * DATE OF EXAM: Feb 28 2025 4:04PM LUIS [id number] - XR CHEST 2V FRONTAL/LAT / PROCEDURE REASON: multiple diagnoses * * * * Physician Interpretation * * * * EXAMINATION: CHEST RADIOGRAPH (2 VIEW FRONTAL & LATERAL) CLINICAL HISTORY: TOS (thoracic outlet syndrome) Hematoma MQ: XC2_6 EXAM DATE/TIME: 02/28/2025 4:04 PM COMPARISON: PA and lateral CXR 02/15/2025 RESULT: Lines, tubes, and devices: None. Lungs and pleura: Interval improvement without resolution of a lentiform opacity at the left apex, likely secondary to a fluid collection which may be pleural or extrapleural in origin. The lungs are clear of consolidation. The costophrenic angles are sharp. No pneumothorax is identified. Cardiomediastinal silhouette: Stable cardiomediastinal silhouette. The heart size and pulmonary vascular pattern are within normal limits. Bones and soft tissues: Status post surgical resection of the left first rib. DIVISION OF RADIOLOGY Provider, Kailee Becker - 02/28/2025 * * *Final Report* * * DATE OF EXAM: Feb 28 2025 4:04PM LUIS [id number] - XR CHEST 2V FRONTAL/LAT / PROCEDURE REASON: multiple diagnoses * * * * Physician Interpretation * * * * EXAMINATION: CHEST RADIOGRAPH (2 VIEW FRONTAL & LATERAL) CLINICAL HISTORY: TOS (thoracic outlet syndrome) Hematoma MQ: XC2_6 EXAM DATE/TIME: 02/28/2025 4:04 PM COMPARISON: PA and lateral CXR 02/15/2025 RESULT: Lines, tubes, and devices: None. Lungs and pleura: Interval improvement without resolution of a lentiform opacity at the left apex, likely secondary to a fluid collection which may be pleural or extrapleural in origin. The lungs are clear of consolidation. The costophrenic angles are sharp. No pneumothorax is identified. Cardiomediastinal silhouette: Stable cardiomediastinal silhouette. The heart size and pulmonary vascular pattern are within normal limits. Bones and soft tissues: Status post surgical resection of the left first rib. IMPRESSION IMPRESSION: Compared to 02/15/2025, interval improvement without resolution of a lentiform opacity at the left apex, likely secondary to a fluid collection which may be pleural or extrapleural in origin. Radiographic follow-up is suggested. Drug Safety Coordinator: PSCB Transcribe Date/Time: Feb 28 2025 5:07P Dictated by : JENNIFER DEAN MD This examination was interpreted and the report reviewed and electronically signed by: JENNIFER DEAN MD on Feb 28 2025 5:08PM EST [facility] Radiology Study observation (narrative) [facility] XR Chest PA and LateralOrder ed By: [facility] (FPDOYL) MATT BAUM ([id number]) 1990 F Date Time Provider Department 02/24/25 ANN DICKINSONYL During your visit today, we recorded the following information about you: Allergies As of Date: 02/24/2025 Noted Allergy Reaction PEREIRA PEPPER 02/24/2022 10 - Anaphylaxis 14 - Other: See Comments LATEX 02/24/2022 10 - Anaphylaxis 4 - Hives AMOXICILLIN 02/04/2006 4 - Hives 7 - Swelling BANANA 02/24/2022 7 - Swelling LATEX 09/15/2005 4 - Hives Comments: Verified by skin testing NUBAIN (NALBUPHINE HCL) 11/25/2011 2 - Rash AVOCADO 01/06/2024 9 - Itching CARROT 01/06/2024 9 - Itching CITRUS AND DERIVATIVES 02/24/2022 14 - Other: See Comments KIWI 01/06/2024 9 - Itching HYDROXYZINE 01/31/2020 14 - Other: See Comments Comments: Extreme fatigue OMEPRAZOLE 01/31/2020 14 - Other: See Comments Comments: nausea SERTRALINE 04/20/2023 14 - Other: See Comments Comments: Bruising, stopped by hematology 12/3022 was interacting with blood thinners Date Reviewed: 02/15/2025 Reviewed by: Ravinder Duncan APRN.DIRECTOR OF PUBLICATIONS - Fully Assessed Reason for Visit: Patient Question [1477] Prescriptions as of 03/03/2025 - enoxaparin (LOVENOX) 40 mg/0.4 mL Inject 0.4 mL subcutaneously once daily. Inject entire contents of one(1) syringe - senna-docusate (SENNA-S) 8.6-50 mg per tablet Take 2 tablets by mouth two times a day. - levothyroxine (SYNTHROID) 88 mcg tablet Take 1 tablet by mouth daily at 6 am. - acetaminophen (TYLENOL) 500 mg tablet Take 2 tablets by mouth every 6 hours. - docusate sodium (COLACE) 100 mg capsule Take 1 capsule by mouth two times a day. - methocarbamol (ROBAXIN) 750 mg tablet Take 1 tablet by mouth three times a day. - ibuprofen (MOTRIN) 400 mg tablet Take 1-2 tablets by mouth every 8 hours as needed for pain. - potassium chloride 20 mEq TbER Take 1 tablet by mouth once daily. 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] 02/07/2014 01/28/2016 History of stomach ulcers [Z87.11] 02/07/2014 07/04/2014 Nausea/vomiting in [O21.9] 02/07/2014 01/28/2016 Group B streptococcal infection in child of eli*02/07/2014 01/28/2016 Hx maternal GBS (group B streptococcus) affecte*01/28/2016 Post thyroiditis [O90.5] 06/15/2017 09/24/2018 Acquired hypothyroidism [E03.9] 10/21/2017 TRUDI (generalized anxiety disorder) [F41.1] 07/26/2018 Hypokalemia [E87.6] 09/24/2018 PE (pulmonary thromboembolism) (HCC) [I26.99] 05/10/2019 Jovel's cyst, left [M71.22] 05/10/2019 Epigastric pain [R10.13] 11/30/2019 04/09/2022 Biliary dyskinesia [K82.8] 12/08/2019 04/09/2022 Situational stress [F43.9] 01/31/2020 Unplanned [Z34.90] 08/26/2021 04/09/2022 Family history of defect [Z82.79] 08/26/2021 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] 09/13/2021 Anemia during in first trimester [O99*10/16/2021 04/09/2022 Well adult exam [Z00.00] 11/13/2021 Encounter for screening for diabetes mellitus [*11/13/2021 04/09/2022 UTI (urinary tract infection) in , ant*11/19/2021 04/09/2022 GBS bacteriuria [R82.71] 01/09/2022 Anemia during in third trimester [O99*02/07/2022 Benign gestational thrombocytopenia in third tr*02/07/2022 04/09/2022 Iron deficiency anemia secondary to inadequate *02/14/2022 Iron deficiency anemia during [O99.01*02/14/2022 Iron malabsorption [K90.9] 02/14/2022 Uterine contractions [O47.9] 04/08/2022 04/09/2022 No leakage of amniotic fluid into vagina [Z03.7*04/08/2022 04/09/2022 Intact amniotic membranes during in t*04/09/2022 04/09/2022 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 [Z79.0*04/09/2022 Indication for care in labor or delivery [O75.9]04/09/2022 04/11/2022 Deep vein thrombosis (DVT) of other vein of rig*06/02/2024 Acute deep vein thrombosis (DVT) of axillary ve*06/02/2024 History of pulmonary embolus (PE) [Z86.711] 06/02/2024 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 Normal [facility] CNTHERAPYon 02-24-2025 CNTHERAPY Normal [facility] THERAPY NTon 02-24-2025 THERAPY NT Normal [facility] THERAPY NT Normal [facility] CNOVon 02-15-2025 CNOV Normal [facility] CNPNon 02-15-2025 CNPN Normal [facility] Hematocrit Auto (Bld) [Volum e fraction]on 02-15-2025 Hematocrit (Bld) [Volume fraction] 32.3 % Low 36.0-46.0 [facility] Comment on above: Order Comment: Speci men Type: BLOOD SPECIMENOrdering Facility: [facility] Address: [address] [place] [address] Performed By: #### 7 18-7 4544-3 ####[facility] [id number] [place] [id number] [place] Hgb Bld-mCncon 02-15-2025 Hemoglobin (Bld) [Mass/Vol] 10.4 g/dL Low 11.5-15.5 [facility] Comment on above: Order Comment: Speci men Type: BLOOD SPECIMENOrdering Facility: [facility] Address: [place] [address] Performed By: #### 7 18-7, 4544-3 ####[facility] [id number] [place] [address] [place] XR CHEST 2V FRONTAL/LATon XR CHEST 2V FRONTAL/LAT Normal [facility] XR Chest PA and Lateralon IMPRESSION: As above. Drug Safety Coordinator: PSCB Transcribe Date/Time: Feb 15 2025 10:02A Dictated by : JOE HARMON MD This examination was interpreted and the report reviewed and electronically signed by: JOE HARMON MD on Feb 15 2025 10:04AM [facility] DIVISION OF RADIOLOGY * * *Final Report* * * DATE OF EXAM: Feb 15 2025 9:32AM WOX 5291 - XR CHEST 2V FRONTAL/LAT / PROCEDURE REASON: Chest pain, unspecified type * * * * Physician Interpretation * * * * EXAMINATION: CHEST RADIOGRAPH (2 VIEW FRONTAL & LATERAL) CLINICAL HISTORY: Chest pain, unspecified type MQ: XC2_6 EXAM DATE/TIME: 02/15/2025 9:32 AM COMPARISON: Chest x-ray of 02/10/2025 RESULT: Lines, tubes, and devices: None Lungs and pleura: Slight decrease in size of left apical opacification possibly small loculated effusion or hematoma. There still remains left mid lung atelectasis/scarring. Stable mild elevation of the left hemidiaphragm. No pleural effusion. No pneumothorax. Cardiomediastinal silhouette: Stable cardiomediastinal silhouette. Bones and soft tissues: Status post resection imaging of the left first rib with clips overlying the supraclavicular region. DIVISION OF RADIOLOGY Provider, [facility] Laura gibson [place] - 02/15/2025 * * *Final Report* * * DATE OF EXAM: Feb 15 2025 9:32AM WOX 5291 - XR CHEST 2V FRONTAL/LAT / PROCEDURE REASON: Chest pain, unspecified type * * * * Physician Interpretation * * * * EXAMINATION: CHEST RADIOGRAPH (2 VIEW FRONTAL & LATERAL) CLINICAL HISTORY: Chest pain, unspecified type MQ: XC2_6 EXAM DATE/TIME: 02/15/2025 9:32 AM COMPARISON: Chest x-ray of 02/10/2025 RESULT: Lines, tubes, and devices: None Lungs and pleura: Slight decrease in size of left apical opacification possibly small loculated effusion or hematoma. There still remains left mid lung atelectasis/scarring. Stable mild elevation of the left hemidiaphragm. No pleural effusion. No pneumothorax. Cardiomediastinal silhouette: Stable cardiomediastinal silhouette. Bones and soft tissues: Status post resection imaging of the left first rib with clips overlying the supraclavicular region. IMPRESSION IMPRESSION: As above. Drug Safety Coordinator: SNEHAL Transcribe Date/Time: Feb 15 2025 10:02A Dictated by : JOE HARMON MD This examination was interpreted and the report reviewed and electronically signed by: JOE HARMON MD on Feb 15 2025 10:04AM EST [facility] Radiology Study observation (narrative) [facility] XR Chest PA and LateralOrder ed By: Ccf Provider on 02-15-2025 [facility] [id number] 02-14-2025 [id number] Normal [facility] CNPNon 02-14-2025 CNPN Normal [facility] CNTHERAPYon 02-14-2025 CNTHERAPY Normal [facility] THERAPY NTon 02-14-2025 THERAPY NT Normal [facility] Basic metabolic 2000 panelon 02-10-2025 Anion gap [Moles/Vol] 6 mmol/L Low 8-15 [facility] Comment on above: Order Comment: Speci men Type: BLOOD SPECIMENOrdering Facility: [facility] Address: [address] [place] [address] Performed By: #### 2 4321-2 ####[facility] LABCLIA [id number] [place] [address] [place] Calcium [Mass/Vol] 8.5 mg/dL Normal 8.5-10.2 [facility] Comment on above: Order Comment: Speci men Type: BLOOD SPECIMENOrdering Facility: [facility] Address: [address] [place], [place] [id number] Performed By: #### 2 4321-2 ####[facility] LABCLIA [id number] [place] [id number] [place] Chloride [Moles/Vol] 101 mmol/L Normal 98-107 [facility] Comment on above: Order Comment: Speci men Type: BLOOD SPECIMENOrdering Facility: [facility] Address: [address] [place] [address] Performed By: #### 2 4321-2 ####[facility] LABCLIA [id number] [place] [address] [place] CO2 [Moles/Vol] 28 mmol/L Normal 22-30 [facility] Comment on above: Order Comment: Speci men Type: BLOOD SPECIMENOrdering Facility: [facility] Address: [address] [place] [address] Performed By: #### 2 4321-2 ####[facility] LABCLIA [id number] [place] [address] [place] Creatinine [Mass/Vol] 0.65 mg/dL Normal 0.58-0.96 [facility] Comment on above: Order Comment: Speci men Type: BLOOD SPECIMENOrdering Facility: [facility] Address: [address] [place] [address] Performed By: #### 2 4321-2 ####[facility] LABCLIA [id number] [place] [id number] [place] Creatinine and Glomerular filtration rate.predicted panel (S/P/Bld) 117 mL/min/1.73m??? Normal >=60 [facility] Comment on above: Order Comment: Speci men Type: BLOOD SPECIMENOrdering Facility: [facility] Address: [address] [place] [address] Result Comment: Valarie mated Glomerular Filtration Rate (eGFR) is calculated using the 2020 CKD-EPI creatinine equation. This equation utilizes serum creatinine, sex, and age as parameters. The creatinine assay has traceable calibration to isotope dilution-mass spectrometry. Refer to KDIGO guidelines for clinical interpretation. In patients with unstable renal function, e.g. those with acute kidney injury, the eGFR may not accurately reflect actual GFR. Performed By: #### 2 4321-2 ####[facility] LABIA [id number] [place] [address] [place] Glucose [Mass/Vol] 88 mg/dL Normal 74-99 [facility] Comment on above: Order Comment: Jose polanco Type: BLOOD SPECIMENOrdering Facility: [facility] Address: [address] [place] [address] Result Comment: The [place] Diabetes Association (ADA) provides guidance for cutoff values for fasting glucose and random glucose. The ADA defines fasting as no caloric intake for at least 8 hours. Fasting plasma glucose results between 100 to 125 mg/dL indicate increased risk for diabetes (prediabetes).Fasting plasma glucose results greater than or equal to 126 mg/dL meet the criteria for diagnosis of diabetes. In the absence of unequivocal hyperglycemia, results should be confirmed by repeat testing. In a patient with classic symptoms of hyperglycemia or hyperglycemic crisis, random plasma glucose results greater than or equal to 200 mg/dL meet the criteria for diagnosis of diabetes.Reference: Standards of Medical Care in Diabetes 2016, [place] Diabetes Association. Diabetes Care. 2016.39(Suppl 1). Performed By: #### 2 4321-2 ####[facility] LABIA [id number] [place] [id number] [place] Potassium [Moles/Vol] 4.1 mmol/L Normal 3.7-5.1 [facility] Comment on above: Order Comment: Jose polanco Type: BLOOD SPECIMENOrdering Facility: [facility] Address: [address] [place] [id number] Performed By: #### 2 4321-2 ####[facility] LABIA [id number] [place] [id number] [place] Sodium [Moles/Vol] 135 mmol/L Low 136-144 [facility] Comment on above: Order Comment: Speci men Type: BLOOD SPECIMENOrdering Facility: [facility] Address: [address] [place] [address] Performed By: #### 2 4321-2 ####[facility] LABCLIA [id number] [address] [place] [address] [place] Urea nitrogen [Mass/Vol] 9 mg/dL Normal 7-21 [facility] Comment on above: Order Comment: Speci men Type: BLOOD SPECIMENOrdering Facility: [facility] Address: [address] [place] [address] Performed By: #### 2 4321-2 ####[facility] LABCLIA [id number] [facility] [address], [facility] [place] CBC panel Auto (Bld)on 02-10 Erythrocyte distribution width (RBC) [Ratio] 13.6 % Normal 11.5-15.0 [facility] Comment on above: Order Comment: Speci men Type: BLOOD SPECIMENOrdering Facility: [facility] Address: [address] [place] [address] Performed By: #### 5 8410-2 ####[facility] LABIA [id number] [address], [facility] [place] Hematocrit (Bld) [Volume fraction] 29.6 % Low 36.0-46.0 [facility] Comment on above: Order Comment: Speci men Type: BLOOD SPECIMENOrdering Facility: [facility] Address: [address] [place] [address] Performed By: #### 5 8410-2 ####[facility] LABCLIA [id number] [facility] [address], [facility] [place] Hemoglobin (Bld) [Mass/Vol] 9.3 g/dL Low 11.5-15.5 [facility] Comment on above: Order Comment: Speci men Type: BLOOD SPECIMENOrdering Facility: [facility] Address: [address] [place] [address] Performed By: #### 5 8410-2 ####[facility] LABIA [id number] [place] [address] [place] MCH (RBC) [Entitic mass] 28.0 pg Normal 26.0-34.0 [facility] Comment on above: Order Comment: Speci men Type: BLOOD SPECIMENOrdering Facility: [facility] Address: [address] [place] [address] Performed By: #### 5 8410-2 ####[facility] LABIA [id number] [place] [address] [place] MCHC (RBC) [Mass/Vol] 31.4 g/dL Normal 30.5-36.0 [facility] Comment on above: Order Comment: Speci men Type: BLOOD SPECIMENOrdering Facility: [facility] Address: [address] [place] [address] Performed By: #### 5 8410-2 ####[facility] LABIA [id number] [place] [address] [place] MCV (RBC) [Entitic vol] 89.2 fL Normal 80.0-100.0 [facility] Comment on above: Order Comment: Speci men Type: BLOOD SPECIMENOrdering Facility: [facility] Address: [address] [place] [address] Performed By: #### 5 8410-2 ####[facility] LABIA [id number] [place] [address] [place] Nucleated RBC (Bld) [#/Vol] 10*3/uL Normal <0.01 [facility] Comment on above: Order Comment: Speci men Type: BLOOD SPECIMENOrdering Facility: [facility] Address: [address] [place] [address] Performed By: #### 5 8410-2 ####[facility] LABIA [id number] [address] [address] [place] Platelet mean volume (Bld) [Entitic vol] 10.7 fL Normal 9.0-12.7 [facility] Comment on above: Order Comment: Speci men Type: BLOOD SPECIMENOrdering Facility: [facility] Address: [address] [place] [address] Performed By: #### 5 8410-2 ####[facility] LABCLIA [id number] [place] [address] [place] Platelets (Bld) [#/Vol] 225 10*3/uL Normal 150-400 [facility] Comment on above: Order Comment: Speci men Type: BLOOD SPECIMENOrdering Facility: [facility] Address: [address] [place] [address] Performed By: #### 5 8410-2 ####[facility] LABCLIA [id number] [place] [address] [place] RBC (Bld) [#/Vol] 3.32 10*6/uL Low 3.90-5.20 [facility] Comment on above: Order Comment: Speci men Type: BLOOD SPECIMENOrdering Facility: [facility] Address: [address] [place] [address] Performed By: #### 5 8410-2 ####[facility] LABIA [id number] [place] [address] [place] WBC (Bld) [#/Vol] 3.93 10*3/uL Normal 3.70-11.00 [facility] Comment on above: Order Comment: Speci men Type: BLOOD SPECIMENOrdering Facility: [facility] Address: [address] [place] [address] Performed By: #### 5 8410-2 ####[facility] LABCLIA [id number] [place] [id number] [place] XR CHEST 1V FRONTALon 05-09- 2025 XR CHEST 1V FRONTAL Normal [facility] Basic metabolic 2000 panelon 02-09-2025 Anion gap [Moles/Vol] 10 mmol/L Normal 8-15 [facility] Comment on above: Order Comment: Speci men Type: BLOOD SPECIMENOrdering Facility: [facility] Address: [address] [place] [address] Performed By: #### 2 4321-2 ####[facility] LABCLIA [id number] [place] [id number] [place] Calcium [Mass/Vol] 8.9 mg/dL Normal 8.5-10.2 [facility] Comment on above: Order Comment: Speci men Type: BLOOD SPECIMENOrdering Facility: [facility] Address: [address] [place] [address] Performed By: #### 2 4321-2 ####[facility] LABCLIA [id number] [place] [address] [place] Chloride [Moles/Vol] 101 mmol/L Normal 98-107 [facility] Comment on above: Order Comment: Speci men Type: BLOOD SPECIMENOrdering Facility: [facility] Address: [address] [place] [address] Performed By: #### 2 4321-2 ####[facility] LABCLIA [id number] [place] [id number] [place] CO2 [Moles/Vol] 26 mmol/L Normal 22-30 [facility] Comment on above: Order Comment: Speci men Type: BLOOD SPECIMENOrdering Facility: [facility] Address: [address] [place] [address] Performed By: #### 2 4321-2 ####[facility] LABCLIA [id number] [place] [id number] [place] Creatinine [Mass/Vol] 0.71 mg/dL Normal 0.58-0.96 [facility] Comment on above: Order Comment: Speci men Type: BLOOD SPECIMENOrdering Facility: [facility] Address: [address] [place] [address] Performed By: #### 2 4321-2 ####[facility] LABIA [id number] [place] [address] [place] Creatinine and Glomerular filtration rate.predicted panel (S/P/Bld) 113 mL/min/1.73m??? Normal >=60 [facility] Comment on above: Order Comment: Jose polanco Type: BLOOD SPECIMENOrdering Facility: [facility] Address: [address] [place] [address] Result Comment: Valarie mated Glomerular Filtration Rate (eGFR) is calculated using the 2020 CKD-EPI creatinine equation. This equation utilizes serum creatinine, sex, and age as parameters. The creatinine assay has traceable calibration to isotope dilution-mass spectrometry. Refer to KDIGO guidelines for clinical interpretation. In patients with unstable renal function, e.g. those with acute kidney injury, the eGFR may not accurately reflect actual GFR. Performed By: #### 2 4321-2 ####[facility] LABIA [id number] [place] [address] [place] Glucose [Mass/Vol] 114 mg/dL High 74-99 [facility] Comment on above: Order Comment: Jose polanco Type: BLOOD SPECIMENOrdering Facility: [facility] Address: [address] [place] [address] Result Comment: The [place] Diabetes Association (ADA) provides guidance for cutoff values for fasting glucose and random glucose. The ADA defines fasting as no caloric intake for at least 8 hours. Fasting plasma glucose results between 100 to 125 mg/dL indicate increased risk for diabetes (prediabetes).Fasting plasma glucose results greater than or equal to 126 mg/dL meet the criteria for diagnosis of diabetes. In the absence of unequivocal hyperglycemia, results should be confirmed by repeat testing. In a patient with classic symptoms of hyperglycemia or hyperglycemic crisis, random plasma glucose results greater than or equal to 200 mg/dL meet the criteria for diagnosis of diabetes.Reference: Standards of Medical Care in Diabetes 2016, [place] Diabetes Association. Diabetes Care. 2016.39(Suppl 1). Performed By: #### 2 4321-2 ####[facility] LABCLIA [id number] [facility] [address] [address] [place] Potassium [Moles/Vol] 3.7 mmol/L Normal 3.7-5.1 [facility] Comment on above: Order Comment: Speci men Type: BLOOD SPECIMENOrdering Facility: [facility] Address: [address] [place] [address] Performed By: #### 2 4321-2 ####[facility] LABCLIA [id number] [facility] [address] [address] [place] Sodium [Moles/Vol] 137 mmol/L Normal 136-144 [facility] Comment on above: Order Comment: Speci men Type: BLOOD SPECIMENOrdering Facility: [facility] Address: [address] [place] [address] Performed By: #### 2 4321-2 ####[facility] LABCLIA [id number] [place] [id number] [place] Urea nitrogen [Mass/Vol] 8 mg/dL Normal 7-21 [facility] Comment on above: Order Comment: Speci men Type: BLOOD SPECIMENOrdering Facility: [facility] Address: [address] [place] [address] Performed By: #### 2 4321-2 ####[facility] LABCLIA [id number] [address] [address] [place] Anion gap [Moles/Vol] 9 mmol/L Normal 8-15 [facility] Comment on above: Order Comment: Speci men Type: BLOOD SPECIMENOrdering Facility: [facility] Address: [address] [place], [place] [address] Performed By: #### 2 4321-2 ####[facility] LABCLIA [id number] [address] [address] [place] Calcium [Mass/Vol] 8.9 mg/dL Normal 8.5-10.2 [facility] Comment on above: Order Comment: Speci men Type: BLOOD SPECIMENOrdering Facility: [facility] Address: [address] [place] [address] Performed By: #### 2 4321-2 ####[facility] LABCLIA [id number] [place] [id number] [place] Chloride [Moles/Vol] 101 mmol/L Normal 98-107 [facility] Comment on above: Order Comment: Speci men Type: BLOOD SPECIMENOrdering Facility: [facility] Address: [address] [place] [address] Performed By: #### 2 4321-2 ####[facility] LABCLIA [id number] [place] [address] [place] CO2 [Moles/Vol] 27 mmol/L Normal 22-30 [facility] Comment on above: Order Comment: Speci men Type: BLOOD SPECIMENOrdering Facility: [facility] Address: [address] [place] [address] Performed By: #### 2 4321-2 ####[facility] LABCLIA [id number] [place] [address] [place] Creatinine [Mass/Vol] 0.67 mg/dL Normal 0.58-0.96 [facility] Comment on above: Order Comment: Speci men Type: BLOOD SPECIMENOrdering Facility: [facility] Address: [address] [place] [address] Performed By: #### 2 4321-2 ####[facility] LABCLIA [id number] [place] [id number] [place] Creatinine and Glomerular filtration rate.predicted panel (S/P/Bld) 116 mL/min/1.73m??? Normal >=60 [facility] Comment on above: Order Comment: Speci men Type: BLOOD SPECIMENOrdering Facility: [facility] Address: [address] [place] [address] Result Comment: Valarie mated Glomerular Filtration Rate (eGFR) is calculated using the 2020 CKD-EPI creatinine equation. This equation utilizes serum creatinine, sex, and age as parameters. The creatinine assay has traceable calibration to isotope dilution-mass spectrometry. Refer to KDIGO guidelines for clinical interpretation. In patients with unstable renal function, e.g. those with acute kidney injury, the eGFR may not accurately reflect actual GFR. Performed By: #### 2 4321-2 ####[facility] LABIA [id number] [address] [address] [place] Glucose [Mass/Vol] 105 mg/dL High 74-99 [facility] Comment on above: Order Comment: Jose polanco Type: BLOOD SPECIMENOrdering Facility: [facility] Address: [address] [place] [address] Result Comment: The [place] Diabetes Association (ADA) provides guidance for cutoff values for fasting glucose and random glucose. The ADA defines fasting as no caloric intake for at least 8 hours. Fasting plasma glucose results between 100 to 125 mg/dL indicate increased risk for diabetes (prediabetes).Fasting plasma glucose results greater than or equal to 126 mg/dL meet the criteria for diagnosis of diabetes. In the absence of unequivocal hyperglycemia, results should be confirmed by repeat testing. In a patient with classic symptoms of hyperglycemia or hyperglycemic crisis, random plasma glucose results greater than or equal to 200 mg/dL meet the criteria for diagnosis of diabetes.Reference: Standards of Medical Care in Diabetes 2016, [place] Diabetes Association. Diabetes Care. 2016.39(Suppl 1). Performed By: #### 2 4321-2 ####[facility] LABIA [id number] [address] [address] [place] Potassium [Moles/Vol] 4.1 mmol/L Normal 3.7-5.1 [facility] Comment on above: Order Comment: Jose polanco Type: BLOOD SPECIMENOrdering Facility: [facility] Address: [address] [place] [id number] Performed By: #### 2 4321-2 ####[facility] LABIA [id number] [address] [address] [place] Sodium [Moles/Vol] 137 mmol/L Normal 136-144 [facility] Comment on above: Order Comment: Speci men Type: BLOOD SPECIMENOrdering Facility: [facility] Address: [address] [place] [address] Performed By: #### 2 4321-2 ####[facility] LABCLIA [id number] [place] [address] [place] Urea nitrogen [Mass/Vol] 7 mg/dL Normal 7-21 [facility] Comment on above: Order Comment: Speci men Type: BLOOD SPECIMENOrdering Facility: [facility] Address: [address] [place] [address] Performed By: #### 2 4321-2 ####[facility] LABCLIA [id number] [place] [id number] [place] CASE MANAGEMon 02-09-2025 CASE MANAGEM Normal [facility] CBC panel Auto (Bld)on 02-09 Erythrocyte distribution width (RBC) [Ratio] 13.4 % Normal 11.5-15.0 [facility] Comment on above: Order Comment: Speci men Type: BLOOD SPECIMENOrdering Facility: [facility] Address: [address] [place] [address] Performed By: #### 5 8410-2 ####[facility] LABCLIA [id number] [place] [address] [place] Hematocrit (Bld) [Volume fraction] 29.4 % Low 36.0-46.0 [facility] Comment on above: Order Comment: Speci men Type: BLOOD SPECIMENOrdering Facility: [facility] Address: [address] [place] [address] Performed By: #### 5 8410-2 ####[facility] LABCLIA [id number] [place] [id number] [place] Hemoglobin (Bld) [Mass/Vol] 9.8 g/dL Low 11.5-15.5 [facility] Comment on above: Order Comment: Speci men Type: BLOOD SPECIMENOrdering Facility: [facility] Address: [address] [place] [address] Performed By: #### 5 8410-2 ####[facility] LABIA [id number] [place] [address] [place] MCH (RBC) [Entitic mass] 28.5 pg Normal 26.0-34.0 [facility] Comment on above: Order Comment: Speci men Type: BLOOD SPECIMENOrdering Facility: [facility] Address: [address] [place] [address] Performed By: #### 5 8410-2 ####[facility] LABIA [id number] [place] [address] [place] MCHC (RBC) [Mass/Vol] 33.3 g/dL Normal 30.5-36.0 [facility] Comment on above: Order Comment: Speci men Type: BLOOD SPECIMENOrdering Facility: [facility] Address: [address] [place] [address] Performed By: #### 5 8410-2 ####[facility] LABIA [id number] [place] [address] [place] MCV (RBC) [Entitic vol] 85.5 fL Normal 80.0-100.0 [facility] Comment on above: Order Comment: Speci men Type: BLOOD SPECIMENOrdering Facility: [facility] Address: [address] [place] [address] Performed By: #### 5 8410-2 ####[facility] LABIA [id number] [place] [address] [place] Nucleated RBC (Bld) [#/Vol] 10*3/uL Normal <0.01 [facility] Comment on above: Order Comment: Speci men Type: BLOOD SPECIMENOrdering Facility: [facility] Address: [address] [place] [address] Performed By: #### 5 8410-2 ####[facility] LABCLIA [id number] [address] [address] [place] Platelet mean volume (Bld) [Entitic vol] 11.2 fL Normal 9.0-12.7 [facility] Comment on above: Order Comment: Speci men Type: BLOOD SPECIMENOrdering Facility: [facility] Address: [address] [place] [address] Performed By: #### 5 8410-2 ####[facility] LABCLIA [id number] [place] [id number] [place] Platelets (Bld) [#/Vol] 174 10*3/uL Normal 150-400 [facility] Comment on above: Order Comment: Speci men Type: BLOOD SPECIMENOrdering Facility: [facility] Address: [address] [place] [address] Performed By: #### 5 8410-2 ####[facility] LABIA [id number] [place] [id number] [place] RBC (Bld) [#/Vol] 3.44 10*6/uL Low 3.90-5.20 [facility] Comment on above: Order Comment: Speci men Type: BLOOD SPECIMENOrdering Facility: [facility] Address: [address] [place] [address] Performed By: #### 5 8410-2 ####[facility] LABCLIA [id number] [facility] [address] [address] [place] WBC (Bld) [#/Vol] 3.78 10*3/uL Normal 3.70-11.00 [facility] Comment on above: Order Comment: Speci men Type: BLOOD SPECIMENOrdering Facility: [facility] Address: [address] [place] [address] Performed By: #### 5 8410-2 ####[facility] LABCLIA [id number] [address] [address] [place] XR CHEST 1V FRONTAL PORTon 0 02-09-2025 XR CHEST 1V FRONTAL PORT Normal [facility] XR CHEST 1V FRONTAL PORT Normal [facility] XR CHEST 1V FRONTAL PORT Normal [facility] Basic metabolic 2000 panelon 02-08-2025 Anion gap [Moles/Vol] 12 mmol/L Normal 8-15 [facility] Comment on above: Order Comment: Speci men Type: BLOOD SPECIMENOrdering Facility: [facility] [facility] Address: [address] [place] [address] Performed By: #### 2 4321-2 ####[facility] LABCLIA [id number] [place] [address] [place] Calcium [Mass/Vol] 8.4 mg/dL Low 8.5-10.2 [facility] Comment on above: Order Comment: Speci men Type: BLOOD SPECIMENOrdering Facility: [facility] Address: [address] [place] [address] Performed By: #### 2 4321-2 ####[facility] LABCLIA [id number] [place] [address] [place] Chloride [Moles/Vol] 105 mmol/L Normal 98-107 [facility] Comment on above: Order Comment: Speci men Type: BLOOD SPECIMENOrdering Facility: [facility] Address: [address] [place] [address] Performed By: #### 2 4321-2 ####[facility] LABCLIA [id number] [place] [id number] [place] CO2 [Moles/Vol] 23 mmol/L Normal 22-30 [facility] Comment on above: Order Comment: Speci men Type: BLOOD SPECIMENOrdering Facility: [facility] Address: [address] [place] [address] Performed By: #### 2 4321-2 ####[facility] LABCLIA [id number] [address] [place] [facility] Creatinine [Mass/Vol] 0.65 mg/dL Normal 0.58-0.96 [facility] Comment on above: Order Comment: Jose polanco Type: BLOOD SPECIMENOrdering Facility: [facility] Address: [address] [place] [address] Performed By: #### 2 4321-2 ####[facility] [id number] [place] [address] [place] [facility] [place] Creatinine and Glomerular filtration rate.predicted panel (S/P/Bld) 117 mL/min/1.73m??? Normal >=60 [facility] Comment on above: Order Comment: Jose polanco Type: BLOOD SPECIMENOrdering Facility: [facility] Address: [address] [place] [address] Result Comment: Valarie mated Glomerular Filtration Rate (eGFR) is calculated using the 2020 CKD-EPI creatinine equation. This equation utilizes serum creatinine, sex, and age as parameters. The creatinine assay has traceable calibration to isotope dilution-mass spectrometry. Refer to KDIGO guidelines for clinical interpretation. In patients with unstable renal function, e.g. those with acute kidney injury, the eGFR may not accurately reflect actual GFR. Performed By: #### 2 4321-2 ####[facility] LABIA [id number] [place] [address] [place] Glucose [Mass/Vol] 85 mg/dL Normal 74-99 [facility] Comment on above: Order Comment: Jose polanco Type: BLOOD SPECIMENOrdering Facility: [facility] Address: [address] [place] [address] Result Comment: [place] Diabetes Association (ADA) provides guidance for cutoff values for fasting glucose and random glucose. The ADA defines fasting as no caloric intake for at least 8 hours. Fasting plasma glucose results between 100 to 125 mg/dL indicate increased risk for diabetes (prediabetes).Fasting plasma glucose results greater than or equal to 126 mg/dL meet the criteria for diagnosis of diabetes. In the absence of unequivocal hyperglycemia, results should be confirmed by repeat testing. In a patient with classic symptoms of hyperglycemia or hyperglycemic crisis, random plasma glucose results greater than or equal to 200 mg/dL meet the criteria for diagnosis of diabetes.Reference: Standards of Medical Care in Diabetes 2016, [place] Diabetes Association. Diabetes Care. 2016.39(Suppl 1). Performed By: #### 2 4321-2 ####[facility] LABCLIA [id number] [address] [address] [place] Potassium [Moles/Vol] 4.3 mmol/L Normal 3.7-5.1 [facility] Comment on above: Order Comment: Speci men Type: BLOOD SPECIMENOrdering Facility: [facility] Address: [address] [place] [address] Performed By: #### 2 4321-2 ####[facility] LABCLIA [id number] [place] [id number] [place] Sodium [Moles/Vol] 140 mmol/L Normal 136-144 [facility] Comment on above: Order Comment: Speci men Type: BLOOD SPECIMENOrdering Facility: [facility] Address: [address] [place] [address] Performed By: #### 2 4321-2 ####[facility] LABCLIA [id number] [place] [id number] [place] Urea nitrogen [Mass/Vol] 6 mg/dL Low 7-21 [facility] Comment on above: Order Comment: Speci men Type: BLOOD SPECIMENOrdering Facility: [facility] Address: [address] [place] [address] Performed By: #### 2 4321-2 ####[facility] LABCLIA [id number] [place] [id number] [place] CBC panel Auto (Bld)on 02-08 Erythrocyte distribution width (RBC) [Ratio] 13.6 % Normal 11.5-15.0 [facility] Comment on above: Order Comment: Speci men Type: BLOOD SPECIMENOrdering Facility: [facility] Address: [address] [place] [id number] Performed By: #### 5 8410-2 ####[facility] LABCLIA [id number] [place] [address] [place] Hematocrit (Bld) [Volume fraction] 26.9 % Low 36.0-46.0 [facility] Comment on above: Order Comment: Speci men Type: BLOOD SPECIMENOrdering Facility: [facility] Address: [address] [place] [address] Performed By: #### 5 8410-2 ####[facility] LABIA [id number] [place] [address] [place] Hemoglobin (Bld) [Mass/Vol] 9.0 g/dL Low 11.5-15.5 [facility] Comment on above: Order Comment: Speci men Type: BLOOD SPECIMENOrdering Facility: [facility] Address: [address] [place] [address] Performed By: #### 5 8410-2 ####[facility] LABIA [id number] [place] [address] [place] MCH (RBC) [Entitic mass] 28.8 pg Normal 26.0-34.0 [facility] Comment on above: Order Comment: Speci men Type: BLOOD SPECIMENOrdering Facility: [facility] Address: [address] [place] [address] Performed By: #### 5 8410-2 ####[facility] LABIA [id number] [place] [id number] [place] MCHC (RBC) [Mass/Vol] 33.5 g/dL Normal 30.5-36.0 [facility] Comment on above: Order Comment: Speci men Type: BLOOD SPECIMENOrdering Facility: [facility] Address: [address] [place] [address] Performed By: #### 5 8410-2 ####[facility] LABIA [id number] [place] [address] [place] MCV (RBC) [Entitic vol] 86.2 fL Normal 80.0-100.0 [facility] Comment on above: Order Comment: Speci men Type: BLOOD SPECIMENOrdering Facility: [facility] Address: [address] [place] [address] Performed By: #### 5 8410-2 ####[facility] LABIA [id number] [place] [address] [place] Nucleated RBC (Bld) [#/Vol] 10*3/uL Normal <0.01 [facility] Comment on above: Order Comment: Speci men Type: BLOOD SPECIMENOrdering Facility: [facility] Address: [address] [place] [address] Performed By: #### 5 8410-2 ####[facility] LABIA [id number] [place] [address] [place] Platelet mean volume (Bld) [Entitic vol] 11.5 fL Normal 9.0-12.7 [facility] Comment on above: Order Comment: Speci men Type: BLOOD SPECIMENOrdering Facility: [facility] Address: [address] [place] [address] Performed By: #### 5 8410-2 ####[facility] LABIA [id number] [place] [address] [place] Platelets (Bld) [#/Vol] 126 10*3/uL Low 150-400 [facility] Comment on above: Order Comment: Speci men Type: BLOOD SPECIMENOrdering Facility: [facility] Address: [address] [place] [address] Performed By: #### 5 8410-2 ####[facility] LABCLIA [id number] [place] [id number] [place] RBC (Bld) [#/Vol] 3.12 10*6/uL Low 3.90-5.20 [facility] Comment on above: Order Comment: Speci men Type: BLOOD SPECIMENOrdering Facility: [facility] Address: [address] [place] [address] Performed By: #### 5 8410-2 ####[facility] LABCLIA [id number] [address] [address] [place] WBC (Bld) [#/Vol] 4.37 10*3/uL Normal 3.70-11.00 [facility] Comment on above: Order Comment: Speci men Type: BLOOD SPECIMENOrdering Facility: [facility] Address: [address] [place] [address] Performed By: #### 5 8410-2 ####[facility] LABCLIA [id number] [place] [address] [place] CNPNon 02-08-2025 CNPN Normal [facility] NUTRITIONon 02-08-2025 NUTRITION Normal [facility] THERAPY NTon 02-08-2025 THERAPY NT Normal [facility] THERAPY NT Normal [facility] XR CHEST 1V FRONTAL PORTon 0 02-08-2025 XR CHEST 1V FRONTAL PORT Normal [facility] Basic metabolic 2000 panelon 02-07-2025 Anion gap [Moles/Vol] 8 mmol/L Normal 8-15 [facility] Comment on above: Order Comment: Speci men Type: BLOOD SPECIMENOrdering Facility: [facility] Address: [address] [place] [address] Performed By: #### 2 4321-2 ####[facility] LABCLIA [id number] [address] [address] [place] Calcium [Mass/Vol] 8.4 mg/dL Low 8.5-10.2 [facility] Comment on above: Order Comment: Speci men Type: BLOOD SPECIMENOrdering Facility: [facility] Address: [address] [place] [address] Performed By: #### 2 4321-2 ####[facility] LABCLIA [id number] [place] [id number] [place] Chloride [Moles/Vol] 102 mmol/L Normal 98-107 [facility] Comment on above: Order Comment: Speci men Type: BLOOD SPECIMENOrdering Facility: [facility] Address: [address] [place] [address] Performed By: #### 2 4321-2 ####[facility] LABCLIA [id number] [place] [id number] [place] CO2 [Moles/Vol] 26 mmol/L Normal 22-30 [facility] Comment on above: Order Comment: Speci men Type: BLOOD SPECIMENOrdering Facility: [facility] Address: [address] [place] [address] Performed By: #### 2 4321-2 ####[facility] LABIA [id number] [place] [address] [place] Creatinine [Mass/Vol] 0.73 mg/dL Normal 0.58-0.96 [facility] Comment on above: Order Comment: Speci men Type: BLOOD SPECIMENOrdering Facility: [facility] Address: [address] [place] [address] Performed By: #### 2 4321-2 ####[facility] LABCLIA [id number] [address] OF [facility] Creatinine and Glomerular filtration rate.predicted panel (S/P/Bld) 109 mL/min/1.73m??? Normal >=60 [facility] Comment on above: Order Comment: Speci men Type: BLOOD SPECIMENOrdering Facility: [facility] Address: [address] [place] [address] Result Comment: Valarie mated Glomerular Filtration Rate (eGFR) is calculated using the 2020 CKD-EPI creatinine equation. This equation utilizes serum creatinine, sex, and age as parameters. The creatinine assay has traceable calibration to isotope dilution-mass spectrometry. Refer to KDIGO guidelines for clinical interpretation. In patients with unstable renal function, e.g. those with acute kidney injury, the eGFR may not accurately reflect actual GFR. Performed By: #### 2 4321-2 ####[facility] [id number] [place] [address] [place] Glucose [Mass/Vol] 93 mg/dL Normal 74-99 [facility] Comment on above: Order Comment: Speci men Type: BLOOD SPECIMENOrdering Facility: [facility] Address: [address] [place] [address] Result Comment: The [place] Diabetes Association (ADA) provides guidance for cutoff values for fasting glucose and random glucose. The ADA defines fasting as no caloric intake for at least 8 hours. Fasting plasma glucose results between 100 to 125 mg/dL indicate increased risk for diabetes (prediabetes).Fasting plasma glucose results greater than or equal to 126 mg/dL meet the criteria for diagnosis of diabetes. In the absence of unequivocal hyperglycemia, results should be confirmed by repeat testing. In a patient with classic symptoms of hyperglycemia or hyperglycemic crisis, random plasma glucose results greater than or equal to 200 mg/dL meet the criteria for diagnosis of diabetes.Reference: Standards of Medical Care in Diabetes 2016, [place] Diabetes Association. Diabetes Care. 2016.39(Suppl 1). Performed By: #### 2 4321-2 ####[facility] LABIA [id number] [place] [address] [place] Potassium [Moles/Vol] 4.2 mmol/L Normal 3.7-5.1 [facility] Comment on above: Order Comment: Speci men Type: BLOOD SPECIMENOrdering Facility: [facility] Address: [address] [place] [address] Performed By: #### 2 4321-2 ####[facility] [id number] [place] [address] [place] Sodium [Moles/Vol] 136 mmol/L Normal 136-144 [facility] Comment on above: Order Comment: Speci men Type: BLOOD SPECIMENOrdering Facility: [facility] Address: [address] [place] [address] Performed By: #### 2 4321-2 ####[facility] LABCLIA [id number] [address] [address] [place] Urea nitrogen [Mass/Vol] 8 mg/dL Normal 7-21 [facility] Comment on above: Order Comment: Speci men Type: BLOOD SPECIMENOrdering Facility: [facility] Address: [address] [place] [address] Performed By: #### 2 4321-2 ####[facility] LABCLIA [id number] [address], [facility] [place] CBC panel Auto (Bld)on 02-07 Erythrocyte distribution width (RBC) [Ratio] 13.2 % Normal 11.5-15.0 [facility] Comment on above: Order Comment: Speci men Type: BLOOD SPECIMENOrdering Facility: [facility] Address: [address] [place] [address] Performed By: #### 5 8410-2 ####[facility] LABIA [id number] [place] [address] [place] Hematocrit (Bld) [Volume fraction] 28.1 % Low 36.0-46.0 [facility] Comment on above: Order Comment: Speci men Type: BLOOD SPECIMENOrdering Facility: [facility] Address: [address] [place] [address] Performed By: #### 5 8410-2 ####[facility] LABCLIA [id number] [place] [id number] [place] Hemoglobin (Bld) [Mass/Vol] 9.4 g/dL Low 11.5-15.5 [facility] Comment on above: Order Comment: Speci men Type: BLOOD SPECIMENOrdering Facility: [facility] Address: [address] [place] [address] Performed By: #### 5 8410-2 ####[facility] LABCLIA [id number] [address] [place] [address] [place] MCH (RBC) [Entitic mass] 28.4 pg Normal 26.0-34.0 [facility] Comment on above: Order Comment: Speci men Type: BLOOD SPECIMENOrdering Facility: [facility] Address: [address] [place] [address] Performed By: #### 5 8410-2 ####[facility] LABCLIA [id number] [place] [address] [place] MCHC (RBC) [Mass/Vol] 33.5 g/dL Normal 30.5-36.0 [facility] Comment on above: Order Comment: Speci men Type: BLOOD SPECIMENOrdering Facility: [facility] Address: [address] [place] [address] Performed By: #### 5 8410-2 ####[facility] LABCLIA [id number] [address] [place] MCV (RBC) [Entitic vol] 84.9 fL Normal 80.0-100.0 [facility] Comment on above: Order Comment: Speci men Type: BLOOD SPECIMENOrdering Facility: [facility] Address: [address] [place] [address] Performed By: #### 5 8410-2 ####[facility] LABIA [id number] [address] [place] Nucleated RBC (Bld) [#/Vol] 10*3/uL Normal <0.01 [facility] Comment on above: Order Comment: Speci men Type: BLOOD SPECIMENOrdering Facility: [facility] Address: [address] [place] [address] Performed By: #### 5 8410-2 ####[facility] LABCLIA [id number] [address] [place] Platelet mean volume (Bld) [Entitic vol] 11.3 fL Normal 9.0-12.7 [facility] Comment on above: Order Comment: Speci men Type: BLOOD SPECIMENOrdering Facility: [facility] Address: [address] [place] [address] Performed By: #### 5 8410-2 ####[facility] LABCLIA [id number] [place] [address] [place] Platelets (Bld) [#/Vol] 122 10*3/uL Low 150-400 [facility] Comment on above: Order Comment: Speci men Type: BLOOD SPECIMENOrdering Facility: [facility] Address: [address] [place] [address] Performed By: #### 5 8410-2 ####[facility] LABIA [id number] [place] [address] [place] RBC (Bld) [#/Vol] 3.31 10*6/uL Low 3.90-5.20 [facility] Comment on above: Order Comment: Speci men Type: BLOOD SPECIMENOrdering Facility: [facility] Address: [address] [place] [address] Performed By: #### 5 8410-2 ####[facility] LABIA [id number] [place] [address] [place] WBC (Bld) [#/Vol] 4.39 10*3/uL Normal 3.70-11.00 [facility] Comment on above: Order Comment: Speci men Type: BLOOD SPECIMENOrdering Facility: [facility] Address: [address] [place] [address] Performed By: #### 5 8410-2 ####[facility] LABIA [id number] [place] [address] [place] XR ABDOMEN 1V SUPINEon 02-07 XR ABDOMEN 1V SUPINE Normal [facility] XR CHEST 1V FRONTAL PORTon 0 02-07-2025 XR CHEST 1V FRONTAL PORT Normal [facility] XR CHEST 1V FRONTAL PORT Normal [facility] XR CHEST 1V FRONTAL PORT Normal [facility] CASE MGT INIT ASSESon 2024 CASE MGT INIT ASSES Normal [facility] CBC panel Auto (Bld)on 02-06 Erythrocyte distribution width (RBC) [Ratio] 13.2 % Normal 11.5-15.0 [facility] Comment on above: Order Comment: Speci men Type: BLOOD SPECIMENOrdering Facility: [facility] Address: [address] [place] [address] Performed By: #### 5 8410-2 ####[facility] LABIA [id number] [place] [address] [place] Hematocrit (Bld) [Volume fraction] 28.0 % Low 36.0-46.0 [facility] Comment on above: Order Comment: Speci men Type: BLOOD SPECIMENOrdering Facility: [facility] Address: [address] [place] [address] Performed By: #### 5 8410-2 ####[facility] LABIA [id number] [place] [address] [place] Hemoglobin (Bld) [Mass/Vol] 9.5 g/dL Low 11.5-15.5 [facility] Comment on above: Order Comment: Speci men Type: BLOOD SPECIMENOrdering Facility: [facility] Address: [address] [place] [address] Performed By: #### 5 8410-2 ####[facility] LABIA [id number] [place] [address] [place] MCH (RBC) [Entitic mass] 28.8 pg Normal 26.0-34.0 [facility] Comment on above: Order Comment: Speci men Type: BLOOD SPECIMENOrdering Facility: [facility] Address: [address] [place] [address] Performed By: #### 5 8410-2 ####[facility] LABIA [id number] [place] [address] [place] MCHC (RBC) [Mass/Vol] 33.9 g/dL Normal 30.5-36.0 [facility] Comment on above: Order Comment: Speci men Type: BLOOD SPECIMENOrdering Facility: [facility] Address: [address] [place] [address] Performed By: #### 5 8410-2 ####[facility] LABCLIA [id number] [place] [address] [place] MCV (RBC) [Entitic vol] 84.8 fL Normal 80.0-100.0 [facility] Comment on above: Order Comment: Speci men Type: BLOOD SPECIMENOrdering Facility: [facility] Address: [address] [place] [address] Performed By: #### 5 8410-2 ####[facility] LABIA [id number] [place] [address] [place] Nucleated RBC (Bld) [#/Vol] 10*3/uL Normal <0.01 [facility] Comment on above: Order Comment: Speci men Type: BLOOD SPECIMENOrdering Facility: [facility] Address: [address] [place] [address] Performed By: #### 5 8410-2 ####[facility] LABIA [id number] [place] [address] [place] Platelet mean volume (Bld) [Entitic vol] 11.4 fL Normal 9.0-12.7 [facility] Comment on above: Order Comment: Speci men Type: BLOOD SPECIMENOrdering Facility: [facility] Address: [address] [place] [address] Performed By: #### 5 8410-2 ####[facility] LABCLIA [id number] [place] [address] [place] Platelets (Bld) [#/Vol] 142 10*3/uL Low 150-400 [facility] Comment on above: Order Comment: Speci men Type: BLOOD SPECIMENOrdering Facility: [facility] Address: [address] [place] [address] Performed By: #### 5 8410-2 ####[facility] LABCLIA [id number] [place] [address] [place] RBC (Bld) [#/Vol] 3.30 10*6/uL Low 3.90-5.20 [facility] Comment on above: Order Comment: Speci men Type: BLOOD SPECIMENOrdering Facility: [facility] Address: [address] [place] [address] Performed By: #### 5 8410-2 ####[facility] LABIA [id number] [place] [address] [place] WBC (Bld) [#/Vol] 5.09 10*3/uL Normal 3.70-11.00 [facility] Comment on above: Order Comment: Speci men Type: BLOOD SPECIMENOrdering Facility: [facility] Address: [address] [place] [address] Performed By: #### 5 8410-2 ####[facility] LABIA [id number] [place] [address] [place] CONSULTon 02-06-2025 CONSULT Normal [facility] CT CHEST W IVCONon CT CHEST W IVCON Normal [facility] metabolic 2000 panelon 02-06-2025 Albumin [Mass/Vol] 3.1 g/dL Low 3.9-4.9 [facility] Comment on above: Order Comment: Speci men Type: BLOOD SPECIMENOrdering Facility: [facility] Address: [address] [place] [address] Performed By: #### 2 4323-8 ####[facility] LABIA [id number] [place] [address] [place] ALP [Catalytic activity/Vol] 30 U/L Low 34-123 [facility] Comment on above: Order Comment: Speci men Type: BLOOD SPECIMENOrdering Facility: [facility] Address: [address] [place], [place] [address] Performed By: #### 2 4323-8 ####[facility] LABCLIA [id number] [place] [id number] [place] ALT [Catalytic activity/Vol] 5 U/L Low 7-38 [facility] Comment on above: Order Comment: Speci men Type: BLOOD SPECIMENOrdering Facility: [facility] Address: [address] [place] [address] Performed By: #### 2 4323-8 ####[facility] LABCLIA [id number] [place] [id number] [place] Anion gap [Moles/Vol] 11 mmol/L Normal 8-15 [facility] Comment on above: Order Comment: Speci men Type: BLOOD SPECIMENOrdering Facility: [facility] Address: [address] [place] [address] Performed By: #### 2 4323-8 ####[facility] LABCLIA [id number] [place] [address] [place] AST [Catalytic activity/Vol] 13 U/L Normal 13-35 [facility] Comment on above: Order Comment: Speci men Type: BLOOD SPECIMENOrdering Facility: [facility] Address: [address] [place] [address] Performed By: #### 2 4323-8 ####[facility] LABCLIA [id number] [facility] [place] [id number] [place] Bilirubin [Mass/Vol] 0.6 mg/dL Normal 0.2-1.3 [facility] Comment on above: Order Comment: Speci men Type: BLOOD SPECIMENOrdering Facility: [facility] Address: [address] [place], [place] [address] Performed By: #### 2 4323-8 ####[facility] LABCLIA [id number] [address] [address] [place] Calcium [Mass/Vol] 8.1 mg/dL Low 8.5-10.2 [facility] Comment on above: Order Comment: Speci men Type: BLOOD SPECIMENOrdering Facility: [facility] Address: [address] [place], [place] [address] Performed By: #### 2 4323-8 ####[facility] LABCLIA [id number] [place] [id number] [place] Chloride [Moles/Vol] 101 mmol/L Normal 98-107 [facility] Comment on above: Order Comment: Speci men Type: BLOOD SPECIMENOrdering Facility: [facility] Address: [address] [place] [address] Performed By: #### 2 4323-8 ####[facility] LABCLIA [id number] [place] [id number] [place] CO2 [Moles/Vol] 24 mmol/L Normal 22-30 [facility] Comment on above: Order Comment: Speci men Type: BLOOD SPECIMENOrdering Facility: [facility] Address: [address] [place], [place] [address] Performed By: #### 2 4323-8 ####[facility] LABCLIA [id number] [place] [id number] [place] Creatinine [Mass/Vol] 0.72 mg/dL Normal 0.58-0.96 [facility] Comment on above: Order Comment: Speci men Type: BLOOD SPECIMENOrdering Facility: [facility] Address: [address] [place] [address] Performed By: #### 2 4323-8 ####[facility] LABCLIA [id number] [place] [id number] [place] Creatinine and Glomerular filtration rate.predicted panel (S/P/Bld) 111 mL/min/1.73m??? Normal >=60 [facility] Comment on above: Order Comment: Speci men Type: BLOOD SPECIMENOrdering Facility: [facility] Address: [address] [place] [address] Result Comment: Valarie mated Glomerular Filtration Rate (eGFR) is calculated using the 2020 CKD-EPI creatinine equation. This equation utilizes serum creatinine, sex, and age as parameters. The creatinine assay has traceable calibration to isotope dilution-mass spectrometry. Refer to KDIGO guidelines for clinical interpretation. In patients with unstable renal function, e.g. those with acute kidney injury, the eGFR may not accurately reflect actual GFR. Performed By: #### 2 4323-8 ####[facility] LABIA [id number] [place] [address] [place] Glucose [Mass/Vol] 101 mg/dL High 74-99 [facility] Comment on above: Order Comment: Jose polanco Type: BLOOD SPECIMENOrdering Facility: [facility] Address: [address] [place] [address] Result Comment: The [place] Diabetes Association (ADA) provides guidance for cutoff values for fasting glucose and random glucose. The ADA defines fasting as no caloric intake for at least 8 hours. Fasting plasma glucose results between 100 to 125 mg/dL indicate increased risk for diabetes (prediabetes).Fasting plasma glucose results greater than or equal to 126 mg/dL meet the criteria for diagnosis of diabetes. In the absence of unequivocal hyperglycemia, results should be confirmed by repeat testing. In a patient with classic symptoms of hyperglycemia or hyperglycemic crisis, random plasma glucose results greater than or equal to 200 mg/dL meet the criteria for diagnosis of diabetes.Reference: Standards of Medical Care in Diabetes 2016, [place] Diabetes Association. Diabetes Care. 2016.39(Suppl 1). Performed By: #### 2 4323-8 ####[facility] LABIA [id number] [place] [id number] [place] Potassium [Moles/Vol] 3.9 mmol/L Normal 3.7-5.1 [facility] Comment on above: Order Comment: Jose polanco Type: BLOOD SPECIMENOrdering Facility: [facility] Address: [address] [place] [address] Performed By: #### 2 4323-8 ####[facility] LABCLIA [id number] [address] [place] [address] [place] Protein [Mass/Vol] 5.1 g/dL Low 6.3-8.0 [facility] Comment on above: Order Comment: Speci men Type: BLOOD SPECIMENOrdering Facility: [facility] Address: [address] [place] [address] Performed By: #### 2 4323-8 ####[facility] LABCLIA [id number] [address], [facility] [place] Sodium [Moles/Vol] 136 mmol/L Normal 136-144 [facility] Comment on above: Order Comment: Speci men Type: BLOOD SPECIMENOrdering Facility: [facility] Address: [address] [place] [address] Performed By: #### 2 4323-8 ####[facility] LABIA [id number] [place] [address] [place] Urea nitrogen [Mass/Vol] 8 mg/dL Normal 7-21 [facility] Comment on above: Order Comment: Speci men Type: BLOOD SPECIMENOrdering Facility: [facility] Address: [address] [place] [address] Performed By: #### 2 4323-8 ####[facility] LABIA [id number] [place] [id number] [place] Fibrinogen PPP-mCncon 2024 Fibrinogen Coag (PPP) [Mass/Vol] 323 mg/dL Normal 200-400 [facility] Comment on above: Order Comment: Speci men Type: BLOOD SPECIMENOrdering Facility: [facility] Address: [address] [place] [address] Performed By: #### 3 255-7, 56173-6, 99681-8 ####[facility] LABIA [id number] [place] [id number] [place] PT panel Coag (PPP)on 2024 INR Coag (PPP) [Relative time] 1.1 {INR} Normal 0.9-1.3 [facility] Comment on above: Order Comment: Jose polanco Type: BLOOD SPECIMENOrdering Facility: [facility] Address: [address] [place] [address] Result Comment: Olinda min K Antagonist (VKA) Therapeutic Range: INR 2 to 3 (Target INR of 2.5)Note: For patients treated with VKA drugs, such as warfarin, the [place] [employer] 2012 Guideline recommends a therapeutic INR range of 2 to 3 (target INR of 2.5). This recommendation includes high-risk patients with antiphospholipid syndrome with previous arterial or venous thromboembolism, current-generation mechanical or bioprosthetic aortic heart valve replacement.Note: Patients with mechanical aortic valve replacement and additional risk factors for thromboembolic events (atrial fibrillation, previous thromboembolism, LV dysfunction, hypercoagulable conditions) or an older generation mechanical AVR (i.e., ball in-Cage) or any mechanical MVR should have a INR therapeutic range of 2.5 to 3.5 (target INR of 3).Haritha GH, et al. Chest 2012, 141:7S-47SNishimchina RA, et al. [facility] 2017, 70: 252-289 Performed By: #### 3 255-7, 05843-6, 25787-1 ####[facility] [id number] [place] [id number] [place] PT Coag (PPP) [Time] 11.5 s Normal 9.7-13.0 [facility] Comment on above: Order Comment: Jose polanco Type: BLOOD SPECIMENOrdering Facility: [facility] Address: [address] [place] [address] Performed By: #### 3 255-7, 94622-9, 71245-5 ####[facility] [id number] [address] [address] [place] XR CHEST 1V FRONTAL PORTon 0 02-06-2025 XR CHEST 1V FRONTAL PORT Normal [facility] XR CHEST 1V FRONTAL PORT Normal [facility] XR CHEST 1V FRONTAL PORT Normal [facility] aPTT PPPon 02-06-2025 aPTT Coag (PPP) [Time] 23.7 s Normal 23.0-32.4 [facility] Comment on above: Order Comment: Speci men Type: BLOOD SPECIMENOrdering Facility: [facility] Address: [address] [place] [address] Performed By: #### 3 255-7, 74125-8, 85318-6 ####[facility] LABCLIA [id number] [place] [address] [place] Basic metabolic 2000 panelon 02-05-2025 Anion gap [Moles/Vol] 12 mmol/L Normal 8-15 [facility] Comment on above: Order Comment: Speci men Type: BLOOD SPECIMENOrdering Facility: [facility] Address: [address] [place] [address] Performed By: #### 2 4321-2 ####[facility] LABCLIA [id number] [place] [address] [place] Calcium [Mass/Vol] 8.5 mg/dL Normal 8.5-10.2 [facility] Comment on above: Order Comment: Speci men Type: BLOOD SPECIMENOrdering Facility: [facility] Address: [address] [place] [address] Performed By: #### 2 4321-2 ####[facility] LABCLIA [id number] [place] [id number] [place] Chloride [Moles/Vol] 105 mmol/L Normal 98-107 [facility] Comment on above: Order Comment: Speci men Type: BLOOD SPECIMENOrdering Facility: [facility] Address: [address] [place] [address] Performed By: #### 2 4321-2 ####[facility] LABCLIA [id number] [place] [id number] [place] CO2 [Moles/Vol] 22 mmol/L Normal 22-30 [facility] Comment on above: Order Comment: Speci men Type: BLOOD SPECIMENOrdering Facility: [facility] Address: [address] [place] [address] Performed By: #### 2 4321-2 ####[facility] LABCLIA [id number] [facility] [place] [id number] [place] Creatinine [Mass/Vol] 0.79 mg/dL Normal 0.58-0.96 [facility] Comment on above: Order Comment: Speci men Type: BLOOD SPECIMENOrdering Facility: [facility] Address: [address] [place] [address] Performed By: #### 2 4321-2 ####[facility] LABCLIA [id number] [place] [address] [place] Creatinine and Glomerular filtration rate.predicted panel (S/P/Bld) 100 mL/min/1.73m??? Normal >=60 [facility] Comment on above: Order Comment: Speci men Type: BLOOD SPECIMENOrdering Facility: [facility] Address: [address] [place] [address] Result Comment: Valarie mated Glomerular Filtration Rate (eGFR) is calculated using the 2020 CKD-EPI creatinine equation. This equation utilizes serum creatinine, sex, and age as parameters. The creatinine assay has traceable calibration to isotope dilution-mass spectrometry. Refer to KDIGO guidelines for clinical interpretation. In patients with unstable renal function, e.g. those with acute kidney injury, the eGFR may not accurately reflect actual GFR. Performed By: #### 2 4321-2 ####[facility] LABCLIA [id number] [place] [id number] [place] Glucose [Mass/Vol] 87 mg/dL Normal 74-99 [facility] Comment on above: Order Comment: Speci men Type: BLOOD SPECIMENOrdering Facility: [facility] Address: [address] [place] [address] Result Comment: The [place] Diabetes Association (ADA) provides guidance for cutoff values for fasting glucose and random glucose. The ADA defines fasting as no caloric intake for at least 8 hours. Fasting plasma glucose results between 100 to 125 mg/dL indicate increased risk for diabetes (prediabetes).Fasting plasma glucose results greater than or equal to 126 mg/dL meet the criteria for diagnosis of diabetes. In the absence of unequivocal hyperglycemia, results should be confirmed by repeat testing. In a patient with classic symptoms of hyperglycemia or hyperglycemic crisis, random plasma glucose results greater than or equal to 200 mg/dL meet the criteria for diagnosis of diabetes.Reference: Standards of Medical Care in Diabetes 2016, [place] Diabetes Association. Diabetes Care. 2016.39(Suppl 1). Performed By: #### 2 4321-2 ####[facility] LABCLIA [id number] [place] [address] [place] Potassium [Moles/Vol] 4.2 mmol/L Normal 3.7-5.1 [facility] Comment on above: Order Comment: Speci men Type: BLOOD SPECIMENOrdering Facility: [facility] Address: [address] [place] [address] Performed By: #### 2 1-2 ####[facility] LABCLIA [id number] [place] [address] [place] Sodium [Moles/Vol] 139 mmol/L Normal 136-144 [facility] Comment on above: Order Comment: Speci men Type: BLOOD SPECIMENOrdering Facility: [facility] Address: [address] [place] [address] Performed By: #### 2 4321-2 ####[facility] LABCLIA [id number] [place] [id number] [place] Urea nitrogen [Mass/Vol] 7 mg/dL Normal 7-21 [facility] Comment on above: Order Comment: Speci men Type: BLOOD SPECIMENOrdering Facility: [facility] Address: [address] [place] [address] Performed By: #### 2 4321-2 ####[facility] LABCLIA [id number] [place] [address] [place] CBC panel Auto (Bld)on 02-05 Erythrocyte distribution width (RBC) [Ratio] 13.1 % Normal 11.5-15.0 [facility] Comment on above: Order Comment: Speci men Type: BLOOD SPECIMENOrdering Facility: [facility] Address: [address] [place] [address] Performed By: #### 5 8410-2 ####[facility] LABIA [id number] [place] [address] [place] Hematocrit (Bld) [Volume fraction] 22.0 % Low 36.0-46.0 [facility] Comment on above: Order Comment: Speci men Type: BLOOD SPECIMENOrdering Facility: [facility] Address: [address] [place] [address] Performed By: #### 5 8410-2 ####[facility] LABIA [id number] [address] [place] Hemoglobin (Bld) [Mass/Vol] 7.3 g/dL Low 11.5-15.5 [facility] Comment on above: Order Comment: Speci men Type: BLOOD SPECIMENOrdering Facility: [facility] Address: [address] [place] [address] Performed By: #### 5 8410-2 ####[facility] LABIA [id number] [place] [address] [place] MCH (RBC) [Entitic mass] 28.1 pg Normal 26.0-34.0 [facility] Comment on above: Order Comment: Speci men Type: BLOOD SPECIMENOrdering Facility: [facility] Address: [address] [place] [address] Performed By: #### 5 8410-2 ####[facility] LABCLIA [id number] [place] [address] [place] MCHC (RBC) [Mass/Vol] 33.2 g/dL Normal 30.5-36.0 [facility] Comment on above: Order Comment: Speci men Type: BLOOD SPECIMENOrdering Facility: [facility] Address: [address] [place] [address] Performed By: #### 5 8410-2 ####[facility] LABCLIA [id number] [place] [address] [place] MCV (RBC) [Entitic vol] 84.6 fL Normal 80.0-100.0 [facility] Comment on above: Order Comment: Speci men Type: BLOOD SPECIMENOrdering Facility: [facility] Address: [address] [place] [address] Performed By: #### 5 8410-2 ####[facility] LABIA [id number] [place] [address] [place] Nucleated RBC (Bld) [#/Vol] 10*3/uL Normal <0.01 [facility] Comment on above: Order Comment: Speci men Type: BLOOD SPECIMENOrdering Facility: [facility] Address: [address] [place] [address] Performed By: #### 5 8410-2 ####[facility] LABIA [id number] [place] [address] [place] Platelet mean volume (Bld) [Entitic vol] 11.4 fL Normal 9.0-12.7 [facility] Comment on above: Order Comment: Speci men Type: BLOOD SPECIMENOrdering Facility: [facility] Address: [address] [place] [address] Performed By: #### 5 8410-2 ####[facility] LABIA [id number] [place] [address] [place] Platelets (Bld) [#/Vol] 129 10*3/uL Low 150-400 [facility] Comment on above: Order Comment: Speci men Type: BLOOD SPECIMENOrdering Facility: [facility] Address: [address] [place] [address] Result Comment: Resu lts checked and verified.No clot detected. Performed By: #### 5 8410-2 ####[facility] LABIA [id number] [place] [address] [place] RBC (Bld) [#/Vol] 2.60 10*6/uL Low 3.90-5.20 [facility] Comment on above: Order Comment: Speci men Type: BLOOD SPECIMENOrdering Facility: [facility] Address: [address] [place] [address] Performed By: #### 5 8410-2 ####[facility] [id number] [place] [address] [place] WBC (Bld) [#/Vol] 5.61 10*3/uL Normal 3.70-11.00 [facility] Comment on above: Order Comment: Speci men Type: BLOOD SPECIMENOrdering Facility: [facility] Address: [address] [place] [address] Performed By: #### 5 8410-2 ####[facility] [id number] [place] [address] [place] Erythrocyte distribution width (RBC) [Ratio] 13.0 % Normal 11.5-15.0 [facility] Comment on above: Order Comment: Speci men Type: BLOOD SPECIMENOrdering Facility: [facility] Address: [address] [place] [address] Performed By: #### 5 8410-2 ####[facility] LABIA [id number] [place] [id number] [place] Hematocrit (Bld) [Volume fraction] 28.5 % Low 36.0-46.0 [facility] Comment on above: Order Comment: Speci men Type: BLOOD SPECIMENOrdering Facility: [facility] Address: [address] [place] [address] Performed By: #### 5 8410-2 ####[facility] LABIA [id number] [place] [address] [place] Hemoglobin (Bld) [Mass/Vol] 9.2 g/dL Low 11.5-15.5 [facility] Comment on above: Order Comment: Speci men Type: BLOOD SPECIMENOrdering Facility: [facility] Address: [address] [place] [address] Performed By: #### 5 8410-2 ####[facility] LABIA [id number] [place] [address] [place] MCH (RBC) [Entitic mass] 28.1 pg Normal 26.0-34.0 [facility] Comment on above: Order Comment: Speci men Type: BLOOD SPECIMENOrdering Facility: [facility] Address: [address] [place] [address] Performed By: #### 5 8410-2 ####[facility] [id number] [place] [address] [place] MCHC (RBC) [Mass/Vol] 32.3 g/dL Normal 30.5-36.0 [facility] Comment on above: Order Comment: Speci men Type: BLOOD SPECIMENOrdering Facility: [facility] Address: [address] [place] [address] Performed By: #### 5 8410-2 ####[facility] LABIA [id number] [place] [address] [place] MCV (RBC) [Entitic vol] 87.2 fL Normal 80.0-100.0 [facility] Comment on above: Order Comment: Speci men Type: BLOOD SPECIMENOrdering Facility: [facility] Address: [address] [place] [address] Performed By: #### 5 8410-2 ####[facility] LABIA [id number] [place] [address] [place] Nucleated RBC (Bld) [#/Vol] 10*3/uL Normal <0.01 [facility] Comment on above: Order Comment: Speci men Type: BLOOD SPECIMENOrdering Facility: [facility] Address: [address] [place] [address] Performed By: #### 5 8410-2 ####[facility] LABIA [id number] [place] [address] [place] Platelet mean volume (Bld) [Entitic vol] 11.2 fL Normal 9.0-12.7 [facility] Comment on above: Order Comment: Speci men Type: BLOOD SPECIMENOrdering Facility: [facility] Address: [address] [place] [address] Performed By: #### 5 8410-2 ####[facility] LABIA [id number] [place] [address] [place] Platelets (Bld) [#/Vol] 119 10*3/uL Low 150-400 [facility] Comment on above: Order Comment: Speci men Type: BLOOD SPECIMENOrdering Facility: [facility] Address: [address] [place] [address] Result Comment: Resu lts checked and verified.No clot detected. Performed By: #### 5 8410-2 ####[facility] LABIA [id number] [place] [address] [place] RBC (Bld) [#/Vol] 3.27 10*6/uL Low 3.90-5.20 [facility] Comment on above: Order Comment: Speci men Type: BLOOD SPECIMENOrdering Facility: [facility] Address: [address] [place] [address] Performed By: #### 5 8410-2 ####[facility] LABIA [id number] [place] [address] [place] WBC (Bld) [#/Vol] 3.75 10*3/uL Normal 3.70-11.00 [facility] Comment on above: Order Comment: Jose polanco Type: BLOOD SPECIMENOrdering Facility: [facility] Address: [address] [place] [address] Performed By: #### 5 8410-2 ####[facility] LABIA [id number] [address] [place] CCP43ne 02-05-2025 ECG01 Normal [facility] ECG01 Normal [facility] Fibrinogen PPP-mCncon 2024 Fibrinogen Coag (PPP) [Mass/Vol] 275 mg/dL Normal 200-400 [facility] Comment on above: Order Comment: Jose polanco Type: BLOOD SPECIMENOrdering Facility: [facility] Address: [address] [place] [address] Performed By: #### 1 4979-9, 10149-8, 3255-7 ####[facility] LABIA [id number] [place] [address] [place] NURSING PROGon 02-05-2025 NURSING PROG Normal [facility] PT panel Coag (PPP)on 2024 INR Coag (PPP) [Relative time] 1.1 {INR} Normal 0.9-1.3 [facility] Comment on above: Order Comment: Jose polanco Type: BLOOD SPECIMENOrdering Facility: [facility] Address: [address] [place] [address] Result Comment: Olinda min K Antagonist (VKA) Therapeutic Range: INR 2 to 3 (Target INR of 2.5)Note: For patients treated with VKA drugs, such as warfarin, the [place] [employer] 2012 Guideline recommends a therapeutic INR range of 2 to 3 (target INR of 2.5). This recommendation includes high-risk patients with antiphospholipid syndrome with previous arterial or venous thromboembolism, current-generation mechanical or bioprosthetic aortic heart valve replacement.Note: Patients with mechanical aortic valve replacement and additional risk factors for thromboembolic events (atrial fibrillation, previous thromboembolism, LV dysfunction, hypercoagulable conditions) or an older generation mechanical AVR (i.e., ball in-Cage) or any mechanical MVR should have a INR therapeutic range of 2.5 to 3.5 (target INR of 3).Haritha GH, et al. Chest 2012, 141:7S-47SNishimura RA, et al. [facility] 2017, 70: 252-289 Performed By: #### 1 4979-9, 40128-0, 3255-7 ####[facility] LABCLIA [id number] [place] [address] [place] PT Coag (PPP) [Time] 11.5 s Normal 9.7-13.0 [facility] Comment on above: Order Comment: Speci men Type: BLOOD SPECIMENOrdering Facility: [facility] Address: [address] [place] [address] Performed By: #### 1 4979-9, 42688-0, 3255-7 ####[facility] LABCLIA [id number] [place] [address] [place] PTT, ANTICOAGULANT THERAPYon 02-05-2025 aPTT Coag (PPP) [Time] 61.3 s High 23.0-32.4 [facility] Comment on above: Order Comment: Speci men Type: BLOOD SPECIMENOrdering Facility: [facility] Address: [address] [place] [address] Performed By: #### P TTAC ####[facility] LABIA [id number] [place] [address] [place] aPTT Coag (PPP) [Time] s High 23.0-32.4 [facility] Comment on above: Order Comment: Speci men Type: BLOOD SPECIMENOrdering Facility: [facility] Address: [address] [place] [address] Result Comment: Resu lt rechecked.Sample checked for clot. Performed By: #### P TTAC ####[facility] LABCLIA [id number] [place] [id number] [place] aPTT Coag (PPP) [Time] 59.2 s High 23.0-32.4 [facility] Comment on above: Order Comment: Speci men Type: BLOOD SPECIMENOrdering Facility: [facility] Address: [address] [place] [address] Performed By: #### P TTAC ####[facility] LABCLIA [id number] [place] [id number] [place] THERAPY NTon 02-05-2025 THERAPY NT Normal [facility] XR CHEST 1V FRONTAL PORTon 0 02-05-2025 XR CHEST 1V FRONTAL PORT Normal [facility] XR CHEST 1V FRONTAL PORT Normal [facility] XR CHEST 1V FRONTAL PORT Normal [facility] XR CHEST 1V FRONTAL PORT Normal [facility] aPTT PPPon 02-05-2025 aPTT Coag (PPP) [Time] 28.8 s Normal 23.0-32.4 [facility] Comment on above: Order Comment: Speci men Type: BLOOD SPECIMENOrdering Facility: [facility] Address: [address] [place] [address] Performed By: #### 1 4979-9, 81590-0, 3255-7 ####[facility] LABIA [id number] [place] [id number] [place] Basic metabolic 2000 panelon 02-04-2025 Anion gap [Moles/Vol] 7 mmol/L Low 8-15 [facility] Comment on above: Order Comment: Speci men Type: BLOOD SPECIMENOrdering Facility: [facility] Address: [address] [place] [address] Performed By: #### 2 4321-2 ####[facility] LABCLIA [id number] [place] [id number] [place] Calcium [Mass/Vol] 8.1 mg/dL Low 8.5-10.2 [facility] Comment on above: Order Comment: Speci men Type: BLOOD SPECIMENOrdering Facility: [facility] Address: [address] [place] [address] Performed By: #### 2 4321-2 ####[facility] LABCLIA [id number] [place] [id number] [place] Chloride [Moles/Vol] 105 mmol/L Normal 98-107 [facility] Comment on above: Order Comment: Speci men Type: BLOOD SPECIMENOrdering Facility: [facility] Address: [address] [place] [address] Performed By: #### 2 4321-2 ####[facility] LABIA [id number] [place] [id number] [place] CO2 [Moles/Vol] 25 mmol/L Normal 22-30 [facility] Comment on above: Order Comment: Speci men Type: BLOOD SPECIMENOrdering Facility: [facility] Address: [address] [place] [address] Performed By: #### 2 4321-2 ####[facility] LABIA [id number] [address] [place] Creatinine [Mass/Vol] 0.78 mg/dL Normal 0.58-0.96 [facility] Comment on above: Order Comment: Speci men Type: BLOOD SPECIMENOrdering Facility: [facility] Address: [address] [place] [address] Performed By: #### 2 4321-2 ####[facility] LABIA [id number] [address] Creatinine and Glomerular filtration rate.predicted panel (S/P/Bld) 101 mL/min/1.73m??? Normal >=60 [facility] Comment on above: Order Comment: Speci men Type: BLOOD SPECIMENOrdering Facility: [facility] Address: [address] [place] [address] Result Comment: Valarie mated Glomerular Filtration Rate (eGFR) is calculated using the 2020 CKD-EPI creatinine equation. This equation utilizes serum creatinine, sex, and age as parameters. The creatinine assay has traceable calibration to isotope dilution-mass spectrometry. Refer to KDIGO guidelines for clinical interpretation. In patients with unstable renal function, e.g. those with acute kidney injury, the eGFR may not accurately reflect actual GFR. Performed By: #### 2 4321-2 ####[facility] LABIA [id number] [address] [address] [place] Glucose [Mass/Vol] 86 mg/dL Normal 74-99 [facility] Comment on above: Order Comment: Speci men Type: BLOOD SPECIMENOrdering Facility: [facility] Address: [address] [place] [address] Result Comment: [place] Diabetes Association (ADA) provides guidance for cutoff values for fasting glucose and random glucose. The ADA defines fasting as no caloric intake for at least 8 hours. Fasting plasma glucose results between 100 to 125 mg/dL indicate increased risk for diabetes (prediabetes).Fasting plasma glucose results greater than or equal to 126 mg/dL meet the criteria for diagnosis of diabetes. In the absence of unequivocal hyperglycemia, results should be confirmed by repeat testing. In a patient with classic symptoms of hyperglycemia or hyperglycemic crisis, random plasma glucose results greater than or equal to 200 mg/dL meet the criteria for diagnosis of diabetes.Reference: Standards of Medical Care in Diabetes 2016, [place] Diabetes Association. Diabetes Care. 2016.39(Suppl 1). Performed By: #### 2 4321-2 ####[facility] LABIA [id number] [address] [address] [place] Potassium [Moles/Vol] 4.0 mmol/L Normal 3.7-5.1 [facility] Comment on above: Order Comment: Reshmai men Type: BLOOD SPECIMENOrdering Facility: [facility] Address: [address] [place] [id number] Performed By: #### 2 4321-2 ####[facility] LABIA [id number] [address] [address] [place] Sodium [Moles/Vol] 137 mmol/L Normal 136-144 [facility] Comment on above: Order Comment: Speci men Type: BLOOD SPECIMENOrdering Facility: [facility] Address: [address] [place] [address] Performed By: #### 2 4321-2 ####[facility] LABCLIA [id number] [place] [address] [place] Urea nitrogen [Mass/Vol] 8 mg/dL Normal 7-21 [facility] Comment on above: Order Comment: Speci men Type: BLOOD SPECIMENOrdering Facility: [facility] Address: [address] [place] [address] Performed By: #### 2 4321-2 ####[facility] LABIA [id number] [place] [address] [place] CBC panel Auto (Bld)on 02-04 Erythrocyte distribution width (RBC) [Ratio] 13.0 % Normal 11.5-15.0 [facility] Comment on above: Order Comment: Speci men Type: BLOOD SPECIMENOrdering Facility: [facility] Address: [address] [place] [address] Performed By: #### 5 8410-2 ####[facility] LABIA [id number] [place] [address] [place] Hematocrit (Bld) [Volume fraction] 29.8 % Low 36.0-46.0 [facility] Comment on above: Order Comment: Speci men Type: BLOOD SPECIMENOrdering Facility: [facility] Address: [address] [place] [address] Performed By: #### 5 8410-2 ####[facility] LABCLIA [id number] [place] [id number] [place] Hemoglobin (Bld) [Mass/Vol] 9.4 g/dL Low 11.5-15.5 [facility] Comment on above: Order Comment: Speci men Type: BLOOD SPECIMENOrdering Facility: [facility] Address: [address] [place] [address] Performed By: #### 5 8410-2 ####[facility] LABCLIA [id number] [place] [address] [place] MCH (RBC) [Entitic mass] 27.8 pg Normal 26.0-34.0 [facility] Comment on above: Order Comment: Speci men Type: BLOOD SPECIMENOrdering Facility: [facility] Address: [address] [place] [address] Performed By: #### 5 8410-2 ####[facility] LABIA [id number] [place] [address] [place] MCHC (RBC) [Mass/Vol] 31.5 g/dL Normal 30.5-36.0 [facility] Comment on above: Order Comment: Speci men Type: BLOOD SPECIMENOrdering Facility: [facility] Address: [address] [place] [address] Performed By: #### 5 8410-2 ####[facility] [id number] [place] [address] [place] MCV (RBC) [Entitic vol] 88.2 fL Normal 80.0-100.0 [facility] Comment on above: Order Comment: Speci men Type: BLOOD SPECIMENOrdering Facility: [facility] Address: [address] [place] [address] Performed By: #### 5 8410-2 ####[facility] [id number] [place] [address] [place] Nucleated RBC (Bld) [#/Vol] 10*3/uL Normal <0.01 [facility] Comment on above: Order Comment: Speci men Type: BLOOD SPECIMENOrdering Facility: [facility] Address: [address] [place] [address] Performed By: #### 5 8410-2 ####[facility] [id number] [place] [address] [place] Platelet mean volume (Bld) [Entitic vol] 11.9 fL Normal 9.0-12.7 [facility] Comment on above: Order Comment: Speci men Type: BLOOD SPECIMENOrdering Facility: [facility] Address: [address] [place] [address] Performed By: #### 5 8410-2 ####[facility] LABCLIA [id number] [place] [id number] [place] Platelets (Bld) [#/Vol] 102 10*3/uL Low 150-400 [facility] Comment on above: Order Comment: Speci men Type: BLOOD SPECIMENOrdering Facility: [facility] Address: [address] [place] [address] Performed By: #### 5 8410-2 ####[facility] LABCLIA [id number] [place] [address] [place] RBC (Bld) [#/Vol] 3.38 10*6/uL Low 3.90-5.20 [facility] Comment on above: Order Comment: Speci men Type: BLOOD SPECIMENOrdering Facility: [facility] Address: [address] [place] [address] Performed By: #### 5 8410-2 ####[facility] LABCLIA [id number] [place] [address] [place] WBC (Bld) [#/Vol] 3.85 10*3/uL Normal 3.70-11.00 [facility] Comment on above: Order Comment: Speci men Type: BLOOD SPECIMENOrdering Facility: [facility] Address: [address] [place] [address] Performed By: #### 5 8410-2 ####[facility] LABCLIA [id number] [place] [id number] [place] [id number] 02-04-2025 ECG01 Normal [facility] PTT, ANTICOAGULANT THERAPYon 02-04-2025 aPTT Coag (PPP) [Time] 42.5 s High 23.0-32.4 [facility] Comment on above: Order Comment: Speci men Type: BLOOD SPECIMENOrdering Facility: [facility] Address: [address] [place] [address] Performed By: #### P TTAC ####[facility] LABCLIA [id number] [address] [address] [place] aPTT Coag (PPP) [Time] 44.2 s High 23.0-32.4 [facility] Comment on above: Order Comment: Speci men Type: BLOOD SPECIMENOrdering Facility: [facility] Address: [address] [place] [address] Performed By: #### P TTAC ####[facility] LABIA [id number] [place] [id number] [place] THERAPY NTon 02-04-2025 THERAPY NT Normal [facility] XR CHEST 1V FRONTAL PORTon 0 02-04-2025 XR CHEST 1V FRONTAL PORT Normal [facility] Basic metabolic 2000 panelon 02-03-2025 Anion gap [Moles/Vol] 8 mmol/L Normal 8-15 [facility] Comment on above: Order Comment: Speci men Type: BLOOD SPECIMENOrdering Facility: [facility] Address: [address] [place] [address] Performed By: #### 2 4321-2 ####[facility] LABCLIA [id number] [place] [id number] [place] Calcium [Mass/Vol] 8.4 mg/dL Low 8.5-10.2 [facility] Comment on above: Order Comment: Speci men Type: BLOOD SPECIMENOrdering Facility: [facility] Address: [address] [place], [place] [address] Performed By: #### 2 4321-2 ####[facility] LABCLIA [id number] [address] [address] [place] Chloride [Moles/Vol] 107 mmol/L Normal 98-107 [facility] Comment on above: Order Comment: Speci men Type: BLOOD SPECIMENOrdering Facility: [facility] Address: [address] [place] [address] Performed By: #### 2 4321-2 ####[facility] LABCLIA [id number] [place] [id number] [place] CO2 [Moles/Vol] 24 mmol/L Normal 22-30 [facility] Comment on above: Order Comment: Speci men Type: BLOOD SPECIMENOrdering Facility: [facility] Address: [address] [place] [address] Performed By: #### 2 4321-2 ####[facility] LABIA [id number] [address] [place] Creatinine [Mass/Vol] 0.81 mg/dL Normal 0.58-0.96 [facility] Comment on above: Order Comment: Speci men Type: BLOOD SPECIMENOrdering Facility: [facility] Address: [address] [place] [address] Performed By: #### 2 4321-2 ####[facility] LABIA [id number] [address] [facility] Creatinine and Glomerular filtration rate.predicted panel (S/P/Bld) 97 mL/min/1.73m??? Normal >=60 [facility] Comment on above: Order Comment: Speci men Type: BLOOD SPECIMENOrdering Facility: [facility] Address: [address] [place] [address] Result Comment: Valarie mated Glomerular Filtration Rate (eGFR) is calculated using the 2020 CKD-EPI creatinine equation. This equation utilizes serum creatinine, sex, and age as parameters. The creatinine assay has traceable calibration to isotope dilution-mass spectrometry. Refer to KDIGO guidelines for clinical interpretation. In patients with unstable renal function, e.g. those with acute kidney injury, the eGFR may not accurately reflect actual GFR. Performed By: #### 2 4321-2 ####[facility] LABCLIA [id number] [place] [id number] [place] Glucose [Mass/Vol] 88 mg/dL Normal 74-99 [facility] Comment on above: Order Comment: Speci men Type: BLOOD SPECIMENOrdering Facility: [facility] Address: [address] [place] [address] Result Comment: The [place] Diabetes Association (ADA) provides guidance for cutoff values for fasting glucose and random glucose. The ADA defines fasting as no caloric intake for at least 8 hours. Fasting plasma glucose results between 100 to 125 mg/dL indicate increased risk for diabetes (prediabetes).Fasting plasma glucose results greater than or equal to 126 mg/dL meet the criteria for diagnosis of diabetes. In the absence of unequivocal hyperglycemia, results should be confirmed by repeat testing. In a patient with classic symptoms of hyperglycemia or hyperglycemic crisis, random plasma glucose results greater than or equal to 200 mg/dL meet the criteria for diagnosis of diabetes.Reference: Standards of Medical Care in Diabetes 2016, [place] Diabetes Association. Diabetes Care. 2016.39(Suppl 1). Performed By: #### 2 4321-2 ####[facility] LABCLIA [id number] [place] [id number] [place] Potassium [Moles/Vol] 4.0 mmol/L Normal 3.7-5.1 [facility] Comment on above: Order Comment: Speci men Type: BLOOD SPECIMENOrdering Facility: [facility] Address: [address] [place], [place] [address] Performed By: #### 2 4321-2 ####[facility] LABCLIA [id number] [place] [id number] [place] Sodium [Moles/Vol] 139 mmol/L Normal 136-144 [facility] Comment on above: Order Comment: Speci men Type: BLOOD SPECIMENOrdering Facility: [facility] Address: [address] [place], [place] [address] Performed By: #### 2 4321-2 ####[facility] LABCLIA [id number] [place] [id number] [place] Urea nitrogen [Mass/Vol] 9 mg/dL Normal 7-21 [facility] Comment on above: Order Comment: Speci men Type: BLOOD SPECIMENOrdering Facility: [facility] Address: [address] [place] [address] Performed By: #### 2 4321-2 ####[facility] LABCLIA [id number] [place] [address] [place] CBC panel Auto (Bld)on 02-03 Erythrocyte distribution width (RBC) [Ratio] 13.1 % Normal 11.5-15.0 [facility] Comment on above: Order Comment: Speci men Type: BLOOD SPECIMENOrdering Facility: [facility] Address: [address] [place] [address] Performed By: #### 5 8410-2 ####[facility] LABIA [id number] [place] [address] [place] Hematocrit (Bld) [Volume fraction] 30.7 % Low 36.0-46.0 [facility] Comment on above: Order Comment: Speci men Type: BLOOD SPECIMENOrdering Facility: [facility] Address: [address] [place] [address] Performed By: #### 5 8410-2 ####[facility] LABCLIA [id number] [address] [place] Hemoglobin (Bld) [Mass/Vol] 9.8 g/dL Low 11.5-15.5 [facility] Comment on above: Order Comment: Speci men Type: BLOOD SPECIMENOrdering Facility: [facility] Address: [address] [place] [address] Performed By: #### 5 8410-2 ####[facility] LABCLIA [id number] [place] [id number] [place] MCH (RBC) [Entitic mass] 28.2 pg Normal 26.0-34.0 [facility] Comment on above: Order Comment: Speci men Type: BLOOD SPECIMENOrdering Facility: [facility] Address: [address] [place] [address] Performed By: #### 5 8410-2 ####[facility] LABIA [id number] [place] [address] [place] MCHC (RBC) [Mass/Vol] 31.9 g/dL Normal 30.5-36.0 [facility] Comment on above: Order Comment: Speci men Type: BLOOD SPECIMENOrdering Facility: [facility] Address: [address] [place] [address] Performed By: #### 5 8410-2 ####[facility] [id number] [place] [address] [place] MCV (RBC) [Entitic vol] 88.2 fL Normal 80.0-100.0 [facility] Comment on above: Order Comment: Speci men Type: BLOOD SPECIMENOrdering Facility: [facility] Address: [address] [place] [address] Performed By: #### 5 8410-2 ####[facility] [id number] [place] [address] [place] Nucleated RBC (Bld) [#/Vol] 10*3/uL Normal <0.01 [facility] Comment on above: Order Comment: Speci men Type: BLOOD SPECIMENOrdering Facility: [facility] Address: [address] [place] [address] Performed By: #### 5 8410-2 ####[facility] [id number] [place] [address] [place] Platelet mean volume (Bld) [Entitic vol] 12.0 fL Normal 9.0-12.7 [facility] Comment on above: Order Comment: Speci men Type: BLOOD SPECIMENOrdering Facility: [facility] Address: [address] [place] [address] Performed By: #### 5 8410-2 ####[facility] LABCLIA [id number] [address] [address] [place] Platelets (Bld) [#/Vol] 104 10*3/uL Low 150-400 [facility] Comment on above: Order Comment: Speci men Type: BLOOD SPECIMENOrdering Facility: [facility] Address: [address] [place] [address] Result Comment: No c lot detected.Results checked and verified. Performed By: #### 5 8410-2 ####[facility] LABIA [id number] [place] [address] [place] RBC (Bld) [#/Vol] 3.48 10*6/uL Low 3.90-5.20 [facility] Comment on above: Order Comment: Speci men Type: BLOOD SPECIMENOrdering Facility: [facility] Address: [address] [place] [address] Performed By: #### 5 8410-2 ####[facility] LABIA [id number] [place] [address] [place] WBC (Bld) [#/Vol] 3.44 10*3/uL Low 3.70-11.00 [facility] Comment on above: Order Comment: Speci men Type: BLOOD SPECIMENOrdering Facility: [facility] Address: [address] [place] [address] Performed By: #### 5 8410-2 ####[facility] LABCLIA [id number] [place] [id number] [place] PTT, ANTICOAGULANT THERAPYon 02-03-2025 aPTT Coag (PPP) [Time] 32.1 s Normal 23.0-32.4 [facility] Comment on above: Order Comment: Speci men Type: BLOOD SPECIMENOrdering Facility: [facility] Address: [address] [place] [address] Performed By: #### P TTAC ####[facility] LABCLIA [id number] [address] [address] [place] aPTT Coag (PPP) [Time] 62.7 s High 23.0-32.4 [facility] Comment on above: Order Comment: Speci men Type: BLOOD SPECIMENOrdering Facility: [facility] Address: [address] [place] [address] Performed By: #### P TTAC ####[facility] LABIA [id number] [place] [address] [place] THERAPY NTon 02-03-2025 THERAPY NT Normal [facility] THERAPY NT Normal [facility] XR CHEST 1V FRONTAL PORTon 0 02-03-2025 XR CHEST 1V FRONTAL PORT Normal [facility] Basic metabolic 2000 panelon 02-02-2025 Anion gap [Moles/Vol] 12 mmol/L Normal 8-15 [facility] Comment on above: Order Comment: Speci men Type: BLOOD SPECIMENOrdering Facility: [facility] Address: [address] [place] [address] Performed By: #### 2 4321-2 ####[facility] LABCLIA [id number] [place] [address] [place] Calcium [Mass/Vol] 8.5 mg/dL Normal 8.5-10.2 [facility] Comment on above: Order Comment: Speci men Type: BLOOD SPECIMENOrdering Facility: [facility] Address: [address] [place] [address] Performed By: #### 2 4321-2 ####[facility] LABCLIA [id number] [place] [id number] [place] Chloride [Moles/Vol] 103 mmol/L Normal 98-107 [facility] Comment on above: Order Comment: Speci men Type: BLOOD SPECIMENOrdering Facility: [facility] Address: [address] [place] [address] Performed By: #### 2 4321-2 ####[facility] LABCLIA [id number] [place] [id number] [place] CO2 [Moles/Vol] 24 mmol/L Normal 22-30 [facility] Comment on above: Order Comment: Speci men Type: BLOOD SPECIMENOrdering Facility: [facility] Address: [address] [place] [address] Performed By: #### 2 4321-2 ####[facility] [id number] [place] [address] [place] Creatinine [Mass/Vol] 0.94 mg/dL Normal 0.58-0.96 [facility] Comment on above: Order Comment: Speci men Type: BLOOD SPECIMENOrdering Facility: [facility] Address: [address] [place] [address] Performed By: #### 2 4321-2 ####[facility] [id number] [place] [address] [place] Creatinine and Glomerular filtration rate.predicted panel (S/P/Bld) 81 mL/min/1.73m??? Normal >=60 [facility] Comment on above: Order Comment: Speci men Type: BLOOD SPECIMENOrdering Facility: [facility] Address: [address] [place] [address] Result Comment: Valarie mated Glomerular Filtration Rate (eGFR) is calculated using the 2020 CKD-EPI creatinine equation. This equation utilizes serum creatinine, sex, and age as parameters. The creatinine assay has traceable calibration to isotope dilution-mass spectrometry. Refer to KDIGO guidelines for clinical interpretation. In patients with unstable renal function, e.g. those with acute kidney injury, the eGFR may not accurately reflect actual GFR. Performed By: #### 2 4321-2 ####[facility] [id number] [place] [id number] [place] Glucose [Mass/Vol] 83 mg/dL Normal 74-99 [facility] Comment on above: Order Comment: Speci men Type: BLOOD SPECIMENOrdering Facility: [facility] Address: [address] [place] [id number] Result Comment: The [place] Diabetes Association (ADA) provides guidance for cutoff values for fasting glucose and random glucose. The ADA defines fasting as no caloric intake for at least 8 hours. Fasting plasma glucose results between 100 to 125 mg/dL indicate increased risk for diabetes (prediabetes).Fasting plasma glucose results greater than or equal to 126 mg/dL meet the criteria for diagnosis of diabetes. In the absence of unequivocal hyperglycemia, results should be confirmed by repeat testing. In a patient with classic symptoms of hyperglycemia or hyperglycemic crisis, random plasma glucose results greater than or equal to 200 mg/dL meet the criteria for diagnosis of diabetes.Reference: Standards of Medical Care in Diabetes 2016, [place] Diabetes Association. Diabetes Care. 2016.39(Suppl 1). Performed By: #### 2 4321-2 ####[facility] LABCLIA [id number] [place] [address] [place] Potassium [Moles/Vol] 3.6 mmol/L Low 3.7-5.1 [facility] Comment on above: Order Comment: Speci men Type: BLOOD SPECIMENOrdering Facility: [facility] Address: [address] [place] [id number] Performed By: #### 2 432-2 ####[facility] LABIA [id number] [place] [address] [place] Sodium [Moles/Vol] 139 mmol/L Normal 136-144 [facility] Comment on above: Order Comment: Speci men Type: BLOOD SPECIMENOrdering Facility: [facility] Address: [address] [place] [id number] Performed By: #### 2 4321-2 ####[facility] LABCLIA [id number] [place] [address] [place] Urea nitrogen [Mass/Vol] 8 mg/dL Normal 7-21 [facility] Comment on above: Order Comment: Speci men Type: BLOOD SPECIMENOrdering Facility: [facility] Address: [address] [place] [id number] Performed By: #### 2 4321-2 ####[facility] LABCLIA [id number] [place] [id number] [place] CASE MANAGEMon 02-02-2025 CASE MANAGEM Normal [facility] CBC panel Auto (Bld)on 02-02 Erythrocyte distribution width (RBC) [Ratio] 12.9 % Normal 11.5-15.0 [facility] Comment on above: Order Comment: Speci men Type: BLOOD SPECIMENOrdering Facility: [facility] Address: [address] [place] [address] Performed By: #### 5 8410-2 ####[facility] LABCLIA [id number] [place] [address] [place] Hematocrit (Bld) [Volume fraction] 32.1 % Low 36.0-46.0 [facility] Comment on above: Order Comment: Speci men Type: BLOOD SPECIMENOrdering Facility: [facility] Address: [address] [place] [address] Performed By: #### 5 8410-2 ####[facility] LABCLIA [id number] [place] [address] [place] Hemoglobin (Bld) [Mass/Vol] 10.4 g/dL Low 11.5-15.5 [facility] Comment on above: Order Comment: Speci men Type: BLOOD SPECIMENOrdering Facility: [facility] Address: [address] [place] [address] Performed By: #### 5 8410-2 ####[facility] LABCLIA [id number] [place] [id number] [place] MCH (RBC) [Entitic mass] 27.8 pg Normal 26.0-34.0 [facility] Comment on above: Order Comment: Speci men Type: BLOOD SPECIMENOrdering Facility: [facility] Address: [address] [place] [address] Performed By: #### 5 8410-2 ####[facility] LABCLIA [id number] [place] [address] [place] MCHC (RBC) [Mass/Vol] 32.4 g/dL Normal 30.5-36.0 [facility] Comment on above: Order Comment: Speci men Type: BLOOD SPECIMENOrdering Facility: [facility] Address: [address] [place] [address] Performed By: #### 5 8410-2 ####[facility] LABIA [id number] [place] [address] [place] MCV (RBC) [Entitic vol] 85.8 fL Normal 80.0-100.0 [facility] Comment on above: Order Comment: Speci men Type: BLOOD SPECIMENOrdering Facility: [facility] Address: [address] [place] [address] Performed By: #### 5 8410-2 ####[facility] LABIA [id number] [place] [address] [place] Nucleated RBC (Bld) [#/Vol] 10*3/uL Normal <0.01 [facility] Comment on above: Order Comment: Speci men Type: BLOOD SPECIMENOrdering Facility: [facility] Address: [address] [place] [address] Performed By: #### 5 8410-2 ####[facility] LABIA [id number] [place] [address] [place] Platelet mean volume (Bld) [Entitic vol] 12.0 fL Normal 9.0-12.7 [facility] Comment on above: Order Comment: Speci men Type: BLOOD SPECIMENOrdering Facility: [facility] Address: [address] [place] [address] Performed By: #### 5 8410-2 ####[facility] LABIA [id number] [place] [address] [place] Platelets (Bld) [#/Vol] 113 10*3/uL Low 150-400 [facility] Comment on above: Order Comment: Speci men Type: BLOOD SPECIMENOrdering Facility: [facility] Address: [address] [place] [address] Performed By: #### 5 8410-2 ####[facility] LABCLIA [id number] [place] [address] [place] RBC (Bld) [#/Vol] 3.74 10*6/uL Low 3.90-5.20 [facility] Comment on above: Order Comment: Speci men Type: BLOOD SPECIMENOrdering Facility: [facility] Address: [address] [place] [address] Performed By: #### 5 8410-2 ####[facility] LABCLIA [id number] [place] [address] [place] WBC (Bld) [#/Vol] 4.54 10*3/uL Normal 3.70-11.00 [facility] Comment on above: Order Comment: Speci men Type: BLOOD SPECIMENOrdering Facility: [facility] Address: [address] [place] [address] Performed By: #### 5 8410-2 ####[facility] LABCLIA [id number] [place] [address] [place] CNCOon 02-02-2025 CNCO Letter Text Normal [facility] CNDSon 02-02-2025 CNDS Normal [facility] XR CHEST 1V FRONTALon 2024 XR CHEST 1V FRONTAL Normal [facility] ANES POSTPROC EVALon 025 ANES POSTPROC EVAL Normal [facility] ANES PRE-OPon 02-01-2025 ANES PRE-OP Normal [facility] BRIEF OP NOTon 02-01-2025 BRIEF OP NOT Normal [facility] OPERATIVE NOon 02-01-2025 OPERATIVE NO Normal [facility] Pathology biopsy report Demarcus (Tiss)on 02-01-2025 AP DISCLAIMER Normal [facility] Comment on above: Order Comment: Speci men Type: TISSUE SPECIMENOrdering Facility: [facility] Address: [address] [place] [address] Result Comment: Poppy harris Developed Test (LDT) Disclaimer:Performance characteristics of immunohistochemical, immunofluorescent, and chromogenic in-situ hybridization tests have been determined by the performing laboratory within [facility] Pathology and Laboratory Medicine Department ([facility], [facility], [facility], [facility], [facility], [facility], or [facility]) in a manner consistent with CLIA requirements. One or more of these tests may not have been cleared or approved by the FDA. [facility] is regulated under CLIA as qualified to perform high-complexity testing. These tests are used for clinical purposes. These should not be regarded as investigational or for research. Positive and negative controls stain appropriately. Performed By: #### 6 6121-5 ####[facility] LABCLIA [id number] [place] [address] [place] CASE REPORT Normal [facility] Comment on above: Order Comment: Speci men Type: TISSUE SPECIMENOrdering Facility: [facility] Address: [address] [place] [address] Result Comment: Surg [facility] Pathology Report Case: [id number] Provider: Praful Guajardo MD Collected: 02/01/2025 02:58 PMOrdering Location: Admitting Received: 02/01/2025 05:39 PMPathologist: Ghada Everett MDSpecimens: A) - Muscle, Resection, left omahyoid B) - Muscle, Resection, left anterior scalene C) - Muscle, Resection, left middle scalene D) - Rib, Left, first rib E) - Muscle, Resection, left subclavious Performed By: #### 6 6121-5 ####[facility] LABCLIA [id number] [place] [id number] [place] CLINICAL HISTORY Normal [facility] Comment on above: Order Comment: Speci men Type: TISSUE SPECIMENOrdering Facility: [facility] Address: [address] [place] [address] Result Comment: Pre- op diagnosis:Thoracic outlet syndrome [G54.0] Performed By: #### 6 6121-5 ####[facility] LABCLIA [id number] [address] [place] FINAL DIAGNOSIS Normal [facility] Comment on above: Order Comment: Speci men Type: TISSUE SPECIMENOrdering Facility: [facility] Address: [address] [place] [address] Result Comment: A. S oft tissue, left omohyoid, excision:- Unremarkable skeletal muscle.B. Soft tissue, left anterior scalene, excision:- Unremarkable skeletal muscle.C. Soft tissue, left middle scalene, excision:- Unremarkable skeletal muscle. D. First rib, excision:- No gross abnormalities (gross examination only).E. Soft tissue, left subclavius, excision:- Unremarkable skeletal muscle.CK/NEH 02/02/25 at 1427 EDT Performed By: #### 6 6121-5 ####[facility] LABCLIA [id number] [address] OF [facility] FINAL PERFORMING LAB Normal [facility] Comment on above: Order Comment: Speci men Type: TISSUE SPECIMENOrdering Facility: [facility] Address: [address] [place] [address] Result Comment: Diag nostic interpretation performed at: [facility], [address] [place] [address] CLIA# [id number] Director: Dhruv Pereira MD Performed By: #### 6 6121-5 ####[facility] LABCLIA [id number] [address] [place] GROSS DESCRIPTION Normal [facility] Comment on above: Order Comment: Speci men Type: TISSUE SPECIMENOrdering Facility: [facility] Address: [address] [place] [address] Result Comment: A. M uscle, ResectionReceived in formalin labeled left omohyoid is a red-brown segment of skeletal muscular tissue measuring 1.8 x 1.5 x 0.7 cm. The specimen is serially sectioned and totally submitted in formalin in 1 cassette.B. Muscle, ResectionReceived in formalin labeled left anterior scalene is a red-brown segment of skeletal muscular tissue measuring 3.5 x 3.4 x 2.0 cm. The specimen is serially sectioned. A shared services representative section is submitted in formalin in 1 cassette.C. Muscle, ResectionReceived in formalin labeled left middle scalene is a red-brown skeletal muscular segment of tissue measuring 3.6 x 2.0 x 2.0 cm. The specimen is serially sectioned. A shared services representative section is submitted in formalin one cassette.B February 02, 2025 11:53 AMGross examination performed at [facility], [address] [place], [place] [address]D. Rib, LeftReceived in formalin labeled first rib are numerous irregular disrupted segments of [place], trabecular firm osseous rib bone with attached segments of brown striated soft tissue consistent with muscle, aggregating to 4.0 x 3.5 x 2.5 cm. Sectioning reveals firm trabecular cut surfaces. No lesions are identified. No sections are submitted. The specimen is reviewed with Dr. Harrison.Gross examination performed at [facility], [address] [place], [place] [address]NEH 02/02/25. Muscle, ResectionReceived in formalin labeled left subclavius are multiple red-brown segments of skeletal muscular tissue aggregating to 2.4 x 1.3 x 0.5 cm. The specimens are totally submitted in formalin in 1 cassette.B February 02, 2025 11:54 AMGross examination performed at [facility], [address] [place] [address] Performed By: #### 6 6121-5 ####[facility] LABCLIA [id number] [place] [address] [place] XR CHEST 1V FRONTAL PORTon 0 02-01-2025 XR CHEST 1V FRONTAL PORT Normal [facility] CNOVSPon 01-31-2025 CNOVSP Normal [facility] CNPNon 01-31-2025 CNPN Normal [facility] B-HCG SerPl-aCncon HCG.beta subunit Qn m[IU]/mL Normal <5.0 [facility] Comment on above: Order Comment: Speci men Type: BLOOD SPECIMENOrdering Facility: [facility] Address: [address] [place] [address] Result Comment: Megan barron Performed By: #### 2 1198-7 ####[facility] LABCLIA [id number] [place] [address] [place] Basic metabolic 2000 panelon 01-27-2025 Anion gap [Moles/Vol] 11 mmol/L Normal 8-15 [facility] Comment on above: Order Comment: Speci men Type: BLOOD SPECIMENOrdering Facility: [facility] Address: [address] [place] [address] Performed By: #### 3 016-3, 35581-3 ####[facility] LABCLIA [id number] [place] [address] [place] Calcium [Mass/Vol] 9.4 mg/dL Normal 8.5-10.2 [facility] Comment on above: Order Comment: Speci men Type: BLOOD SPECIMENOrdering Facility: [facility] Address: [address] [place] [address] Performed By: #### 3 016-3, 40306-6 ####[facility] LABCLIA [id number] [place] [address] [place] Chloride [Moles/Vol] 104 mmol/L Normal 98-107 [facility] Comment on above: Order Comment: Speci men Type: BLOOD SPECIMENOrdering Facility: [facility] Address: [address] [place] [address] Performed By: #### 3 016-3, 34804-5 ####[facility] LABCLIA [id number] [place] [id number] [place] CO2 [Moles/Vol] 26 mmol/L Normal 22-30 [facility] Comment on above: Order Comment: Speci men Type: BLOOD SPECIMENOrdering Facility: [facility] Address: [address] [place] [address] Performed By: #### 3 016-3, 20337-0 ####[facility] LABCLIA [id number] [place] [address] [place] Creatinine [Mass/Vol] 0.75 mg/dL Normal 0.58-0.96 [facility] Comment on above: Order Comment: Speci men Type: BLOOD SPECIMENOrdering Facility: [facility] Address: [address] [place] [address] Performed By: #### 3 016-3, ####[facility] LABCLIA [id number] [address] [place] Creatinine and Glomerular filtration rate.predicted panel (S/P/Bld) 106 mL/min/1.73m??? Normal >=60 [facility] Comment on above: Order Comment: Speci men Type: BLOOD SPECIMENOrdering Facility: [facility] Address: [address] [place] [address] Result Comment: Valarie mated Glomerular Filtration Rate (eGFR) is calculated using the 2020 CKD-EPI creatinine equation. This equation utilizes serum creatinine, sex, and age as parameters. The creatinine assay has traceable calibration to isotope dilution-mass spectrometry. Refer to KDIGO guidelines for clinical interpretation. In patients with unstable renal function, e.g. those with acute kidney injury, the eGFR may not accurately reflect actual GFR. Performed By: #### 3 016-3, 94919-6 ####[facility] LABCLIA [id number] [place] [address] [place] Glucose [Mass/Vol] 80 mg/dL Normal 74-99 [facility] Comment on above: Order Comment: Speci men Type: BLOOD SPECIMENOrdering Facility: [facility] Address: [address] [place] [address] Result Comment: The [place] Diabetes Association (ADA) provides guidance for cutoff values for fasting glucose and random glucose. The ADA defines fasting as no caloric intake for at least 8 hours. Fasting plasma glucose results between 100 to 125 mg/dL indicate increased risk for diabetes (prediabetes).Fasting plasma glucose results greater than or equal to 126 mg/dL meet the criteria for diagnosis of diabetes. In the absence of unequivocal hyperglycemia, results should be confirmed by repeat testing. In a patient with classic symptoms of hyperglycemia or hyperglycemic crisis, random plasma glucose results greater than or equal to 200 mg/dL meet the criteria for diagnosis of diabetes.Reference: Standards of Medical Care in Diabetes 2016, [place] Diabetes Association. Diabetes Care. 2016.39(Suppl 1). Performed By: #### 3 016-3, 51302-2 ####[facility] LABIA [id number] [place] [address] [place] Potassium [Moles/Vol] 3.9 mmol/L Normal 3.7-5.1 [facility] Comment on above: Order Comment: Speci men Type: BLOOD SPECIMENOrdering Facility: [facility] Address: [address] [place] [address] Performed By: #### 3 016-3, 26694-5 ####[facility] [id number] [place] [address] [place] Sodium [Moles/Vol] 141 mmol/L Normal 136-144 [facility] Comment on above: Order Comment: Speci men Type: BLOOD SPECIMENOrdering Facility: [facility] Address: [address] [place] [address] Performed By: #### 3 016-3, 58827-5 ####[facility] LABIA [id number] [place] [address] [place] Urea nitrogen [Mass/Vol] 12 mg/dL Normal 7-21 [facility] Comment on above: Order Comment: Speci men Type: BLOOD SPECIMENOrdering Facility: [facility] Address: [address] [place] [address] Performed By: #### 3 016-3, 89825-2 ####[facility] LABCLIA [id number] [address], [place] [address] [place] CBC W Auto Differential pane l (Bld)on 01-27-2025 Basophils (Bld) [#/Vol] 10*3/uL Normal <0.11 [facility] Comment on above: Order Comment: Speci men Type: BLOOD SPECIMENOrdering Facility: [facility] Address: [address] [place] [address] Performed By: #### 5 7021-8 ####[facility] LABCLIA [id number] [address], [place] [address] [place] Basophils/100 WBC (Bld) 0.6 % Normal [facility] Comment on above: Order Comment: Speci men Type: BLOOD SPECIMENOrdering Facility: [facility] Address: [address] [place] [address] Performed By: #### 5 7021-8 ####[facility] LABCLIA [id number] [address], [place] [address] [place] Differential cell count method Nom (Bld) Auto Normal [facility] Comment on above: Order Comment: Speci men Type: BLOOD SPECIMENOrdering Facility: [facility] Address: [address] [place] [address] Performed By: #### 5 7021-8 ####[facility] LABCLIA [id number] [address], [place] [address] [place] Eosinophils (Bld) [#/Vol] 0.03 10*3/uL Normal <0.46 [facility] Comment on above: Order Comment: Speci men Type: BLOOD SPECIMENOrdering Facility: [facility] Address: [address] [place] [address] Performed By: #### 5 7021-8 ####[facility] LABCLIA [id number] [place] [address] [place] Eosinophils/100 WBC (Bld) 0.9 % Normal [facility] Comment on above: Order Comment: Speci men Type: BLOOD SPECIMENOrdering Facility: [facility] Address: [address] [place] [address] Performed By: #### 5 7021-8 ####[facility] LABCLIA [id number] [place] [address] [place] Erythrocyte distribution width (RBC) [Ratio] 12.8 % Normal 11.5-15.0 [facility] Comment on above: Order Comment: Speci men Type: BLOOD SPECIMENOrdering Facility: [facility] Address: [address] [place] [address] Performed By: #### 5 7021-8 ####[facility] LABCLIA [id number] [place] [address] [place] Hematocrit (Bld) [Volume fraction] 40.2 % Normal 36.0-46.0 [facility] Comment on above: Order Comment: Speci men Type: BLOOD SPECIMENOrdering Facility: [facility] Address: [address] [place] [address] Performed By: #### 5 7021-8 ####[facility] LABCLIA [id number] [place] [address] [place] Hemoglobin (Bld) [Mass/Vol] 13.1 g/dL Normal 11.5-15.5 [facility] Comment on above: Order Comment: Speci men Type: BLOOD SPECIMENOrdering Facility: [facility] Address: [address] [place] [address] Performed By: #### 5 7021-8 ####[facility] LABCLIA [id number] [place] [address] [place] Immature granulocytes (Bld) [#/Vol] 10*3/uL Normal <0.10 [facility] Comment on above: Order Comment: Speci men Type: BLOOD SPECIMENOrdering Facility: [facility] Address: [address] [place] [address] Performed By: #### 5 7021-8 ####[facility] LABCLIA [id number] [address] STATES [facility] Immature granulocytes/100 WBC (Bld) 0.0 % Normal [facility] Comment on above: Order Comment: Speci men Type: BLOOD SPECIMENOrdering Facility: [facility] Address: [address] [place] [address] Performed By: #### 5 7021-8 ####[facility] LABIA [id number] [place] [address] [place] Lymphocytes (Bld) [#/Vol] 1.55 10*3/uL Normal 1.00-4.00 [facility] Comment on above: Order Comment: Speci men Type: BLOOD SPECIMENOrdering Facility: [facility] Address: [address] [place] [address] Performed By: #### 5 7021-8 ####[facility] LABIA [id number] [place] [address] [place] Lymphocytes/100 WBC (Bld) 49.1 % Normal [facility] Comment on above: Order Comment: Speci men Type: BLOOD SPECIMENOrdering Facility: [facility] Address: [address] [place] [address] Performed By: #### 5 7021-8 ####[facility] LABCLIA [id number] [place] [address] [place] MCH (RBC) [Entitic mass] 28.3 pg Normal 26.0-34.0 [facility] Comment on above: Order Comment: Speci men Type: BLOOD SPECIMENOrdering Facility: [facility] Address: [address] [place] [address] Performed By: #### 5 7021-8 ####[facility] LABCLIA [id number] [place] [address] [place] MCHC (RBC) [Mass/Vol] 32.6 g/dL Normal 30.5-36.0 [facility] Comment on above: Order Comment: Speci men Type: BLOOD SPECIMENOrdering Facility: [facility] Address: [address] [place] [address] Performed By: #### 5 7021-8 ####[facility] LABIA [id number] [place] [address] [place] MCV (RBC) [Entitic vol] 86.8 fL Normal 80.0-100.0 [facility] Comment on above: Order Comment: Speci men Type: BLOOD SPECIMENOrdering Facility: [facility] Address: [address] [place] [address] Performed By: #### 5 7021-8 ####[facility] LABIA [id number] [place] [address] [place] Monocytes (Bld) [#/Vol] 0.28 10*3/uL Normal <0.87 [facility] Comment on above: Order Comment: Speci men Type: BLOOD SPECIMENOrdering Facility: [facility] Address: [address] [place] [address] Performed By: #### 5 7021-8 ####[facility] LABIA [id number] [address] [place] Monocytes/100 WBC (Bld) 8.9 % Normal [facility] Comment on above: Order Comment: Speci men Type: BLOOD SPECIMENOrdering Facility: [facility] Address: [address] [place] [address] Performed By: #### 5 7021-8 ####[facility] LABCLIA [id number] [place] [address] [place] Neutrophils (Bld) [#/Vol] 1.28 10*3/uL Low 1.45-7.50 [facility] Comment on above: Order Comment: Speci men Type: BLOOD SPECIMENOrdering Facility: [facility] Address: [address] [place] [address] Performed By: #### 5 7021-8 ####[facility] LABCLIA [id number] [place] [address] [place] Neutrophils/100 WBC (Bld) 40.5 % Normal [facility] Comment on above: Order Comment: Speci men Type: BLOOD SPECIMENOrdering Facility: [facility] Address: [address] [place] [address] Performed By: #### 5 7021-8 ####[facility] LABCLIA [id number] [place] [address] [place] Nucleated RBC (Bld) [#/Vol] 10*3/uL Normal <0.01 [facility] Comment on above: Order Comment: Speci men Type: BLOOD SPECIMENOrdering Facility: [facility] Address: [address] [place] [address] Performed By: #### 5 7021-8 ####[facility] LABCLIA [id number] [place] [address] [place] Nucleated RBC/100 WBC (Bld) [Ratio] 0.0 /100 WBC Normal [facility] Comment on above: Order Comment: Speci men Type: BLOOD SPECIMENOrdering Facility: [facility] Address: [address] [place] [address] Performed By: #### 5 7021-8 ####[facility] LABCLIA [id number] [place] [id number] [place] Platelet mean volume (Bld) [Entitic vol] 11.1 fL Normal 9.0-12.7 [facility] Comment on above: Order Comment: Speci men Type: BLOOD SPECIMENOrdering Facility: [facility] Address: [address] [place] [address] Performed By: #### 5 7021-8 ####[facility] LABCLIA [id number] [place] [address] [place] Platelets (Bld) [#/Vol] 170 10*3/uL Normal 150-400 [facility] Comment on above: Order Comment: Speci men Type: BLOOD SPECIMENOrdering Facility: [facility] Address: [address] [place] [address] Performed By: #### 5 7021-8 ####[facility] [id number] [place] [address] [place] RBC (Bld) [#/Vol] 4.63 10*6/uL Normal 3.90-5.20 [facility] Comment on above: Order Comment: Speci men Type: BLOOD SPECIMENOrdering Facility: [facility] Address: [address] [place] [address] Performed By: #### 5 7021-8 ####[facility] [id number] [place] [address] [place] WBC (Bld) [#/Vol] 3.16 10*3/uL Low 3.70-11.00 [facility] Comment on above: Order Comment: Speci men Type: BLOOD SPECIMENOrdering Facility: [facility] Address: [address] [place] [address] Performed By: #### 5 7021-8 ####[facility] [id number] [place] [address] [place] CNOVon 01-27-2025 CNOV Normal [facility] ECG COMPLETEon 01-27-2025 ECG COMPLETE Normal [facility] HISTORY PHYSICALon HISTORY PHYSICAL Normal [facility] STAPHYLOCOCCUS AUREUS AND MR SA SCREEN, PCR, NASALon 01-27-2025 S. aureus and MRSA panel MAE+probe (Nose) Methicillin-SUSCEPTIB LE Staphylococcus aureus Detected Abnormal Not Detected [facility] Comment on above: Order Comment: Speci men Type: SWABOrdering Facility: [facility] Address: [address] [place] [address] Performed By: #### S APCR ####[facility] LABCLIA [id number] [place] [address] [place] TSH SerPl-aCncon 01-27-2025 TSH Qn 14.900 m[IU]/L High 0.270-4.200 [facility] Comment on above: Order Comment: Speci men Type: BLOOD SPECIMENOrdering Facility: [facility] Address: [address] [place] [address] Result Comment: If t he patient is , TSH reference range varies by gestational period:First Trimester (weeks 9-12): 0.180-2.990 mIU/LSecond Trimester: 0.110-3.980 mIU/LThird Trimester: 0.480-4.710 mIU/Jim Ozuna et al. A Practical Approach for the Verifications and Determination of Site- and Trimester-Specific Reference Intervals for Thyroid Function tests in . Thyroid, 2019:29:3:412-420. Dom Nichols, et al. 2017 Guidelines of the Citizen [place] Thyroid Association for the Diagnosis and Management of Thyroid Disease during and the . Thyroid, 2017:27:3:315-389. Performed By: #### 3 016-3, 07366-8 ####[facility] LABCLIA [id number] [place] [address] [place] TYPE AND SCREEN,30 DAYon ABO O Normal [facility] Comment on above: Order Comment: Speci men Type: BLOOD SPECIMENOrdering Facility: [facility] Address: [address] [place] [address] Performed By: #### T SCR30 ####[facility] BLOOD BANKIA [id number] [place] [address] [place] Rh Nom (Bld) Positive Normal [facility] Comment on above: Order Comment: Speci men Type: BLOOD SPECIMENOrdering Facility: [facility] Address: [address] [place] [address] Performed By: #### T SCR30 ####[facility] BLOOD BANKCLIA [id number] [place] [id number] [place] No Panel Informationon 01-26 Interpretation and review of laboratory results Abnormal [facility] T3, FREEon 01-26-2025 Free T3 [Mass/Vol] 1.8 pg/mL Low 2.3 - 4.1 pg/mL [facility] T3Free SerPl-mCncon 01-27-20 25 Free T3 [Mass/Vol] 1.8 pg/mL Low 2.3-4.1 [facility] Comment on above: Order Comment: Speci men Type: BLOOD SPECIMENOrdering Facility: [facility] Address: [address] [place] [address] Performed By: #### 3 051-0, 6-3, 7 ####[facility] LABCLIA [id number] [address] [place] T4 FREE/FREE THYROXINEon Free T4 [Mass/Vol] 0.8 ng/dL Low 0.9 - 1.7 ng/dL [facility] Free T4 [Mass/Vol] 0.8 ng/dL Low 0.9-1.7 [facility] Comment on above: Order Comment: Speci men Type: BLOOD SPECIMENOrdering Facility: [facility] Address: [address] [place], [place] [address] [address] Performed By: #### 3 051-0, 3016-3, 3027 ####[facility] LABCLIA [id number] [place] [id number] [place] THYROID STIMULATING HORMONEo n 01-26-2025 TSH Qn 14.5 m[IU]/L High [facility] Comment on above: If the patient is pr egnant, TSH reference range varies by gestational period: First Trimester (weeks 9-12): 0.180-2.990 mIU/L Second Trimester: 0.110-3.980 mIU/L Third Trimester: 0.480-4.710 mIU/L Skyler Ozuna et al. A Practical Approach for the Verifications and Determination of Site- and Trimester-Specific Reference Intervals for Thyroid Function tests in . Thyroid, 2019:29:3:412-420. Dom Nichols et al. 2017 Guidelines of the Citizen [place] Thyroid Association for the Diagnosis and Management of Thyroid Disease during and the . Thyroid, 2017:27:3:315-389. TSH SerPl-aCncon 01-26-2025 TSH Qn 14.500 m[IU]/L High 0.270-4.200 [facility] Comment on above: Order Comment: Speci men Type: BLOOD SPECIMENOrdering Facility: [facility] Address: [address] [place] [address] Result Comment: If t he patient is , TSH reference range varies by gestational period:First Trimester (weeks 9-12): 0.180-2.990 mIU/LSecond Trimester: 0.110-3.980 mIU/LThird Trimester: 0.480-4.710 mIU/LDjuan david Ozuna et al. A Practical Approach for the Verifications and Determination of Site- and Trimester-Specific Reference Intervals for Thyroid Function tests in . Thyroid, 2019:29:3:412-420. Dom Nichols, et al. 2017 Guidelines of the [place] Thyroid Association for the Diagnosis and Management of Thyroid Disease during and the . Thyroid, 2017:27:3:315-389. Performed By: #### 3 051-0, 3016-3, 3024-7 ####[facility] LABCLIA [id number] [address] [place] ALLIED HEALTHon 01-12-2025 ALLIED HEALTH HNO ID: [id number] Author: ALEJANDRO CAMP Tech Service: Radiology Author Type: Artificial Glass Eye Maker Type: Allied Health Filed: 01/12/2025 18:31 Note Text: Radiology Service Progress Note PATIENT NAME: Matt Baum DATE OF SERVICE: January 12, 2025 TIME: 6:30 PM PATIENT IDENTITY VERIFICATION COMPLETED USING TWO (2) IDENTIFIERS: Name and Date of confirmed by patient verbally. FALL SCREENING: Has the patient had 2 falls in the last year or 1 fall with injury or currently using an Ambulatory Assistive Device (Walker, Cane, Wheelchair, Crutches, etc.)? Emergency Room Patient: Screened in ED PATIENT GENDER DATA: Assigned female at . status: : No status: NO. PATIENT RELEVANT IMPLANT DATA REVIEWED: Not Applicable PATIENT PRESENTS WITH AN IMPLANTABLE OR ATTACHED SENIOR AUTOMATION ENGINEER: No RADIOLOGY DEPARTMENT: Ultrasound PERIPHERAL IV DATA: Not applicable SIGNED BY: Marysol Crespo January 12, 2025 6:30 PM [facility] ED NOTEon 01-12-2025 ED NOTE HNO ID: [id number] Author: WINSOME JEFFERSON RN Service: ? Author Type: Registered Nurse Type: ED Notes Filed: 01/12/2025 20:04 Note Text: .Patient discharged, given verbal and written discharge instructions. Patient verbalized understanding. Nurse discussed follow up appointments (vascular) and signs/symptoms of worsening conditions, and reasons why to come back to the emergency department. [facility] ED NOTE HNO ID: [id number] Author: WINSOME JEFFERSON RN Service: ? Author Type: Registered Nurse Type: ED Notes Filed: 01/12/2025 19:19 Note Text: .Assumed care of patient, received report from ARIEL Garcia. 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 Today advised to come to ED by vascular surgery as her symptoms are similar. 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 Referred to ED by vascular team. DVT US of LUE performed prior to my evaluation is negative. Symptoms ongoing for < 1 week sore behind left ear radiating into left lateral neck, during gymnastics today had transient lightheadedness without recurrence or persistence. Describes burning/stinging that felt similar to clots she has had in her left arm. Typically this symptoms is in the arm associated with clot location. Denies any other acute symptoms including chest pain, sob, pleurisy, headache, vision changes, numbness/tingling/wea kness, facial droop, slurred speech, confusion. Ambulatory with steady gait on arrival. Sees Dr. Valle vascular medicine Having surgery with Dr. Guajardo > 02/01 for thoracic outlet syndrome History provided by: Medical records and patient full time staff interpreter used: No PAST MEDICAL HISTORY Diagnosis Date Acquired hypothyroidism 10/21/2017 Anemia during in first trimester 10/16/2021 Jovel's cyst, left 05/10/2019 Biliary dyskinesia 12/08/2019 Factor II deficiency (HCC) Family history of defect 08/26/2021 08/26/2021. Patient son born with a cyst on the brain. It was surgically removed when he was 6 years old. 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 PE (pulmonary thromboembolism) (HCC) 05/10/2019 05/10/2019 Situational stress 01/31/2020 Thoracic outlet syndrome 10/25/2024 Vocal cord dysfunction Paradoxical VOCAL CORD DYSFUNCTION PAST SURGICAL HISTORY Procedure Laterality Date APPENDECTOMY TONSILLECTOMY AND ADENOIDECTOMY FAMILY HISTORY Problem Relation Age of Onset Psychiatry Mother BIPOLAR Thyroid Mother Stroke Father Alcohol abuse Father No Known Problems Sister No Known Problems Sister No Known Problems Sister No Known Problems Brother Arthritis Maternal Grandmother Heart Maternal Grandmother Osteoporosis Maternal Grandmother Stroke Maternal Grandmother other (Hypotension) Maternal Grandmother Heart Maternal Grandfather Hypertension Maternal Grandfather Alcohol/Drug Maternal Grandfather Psychiatry Maternal Grandfather BIPOLAR No Known Problems Paternal Grandmother No Known Problems Paternal Grandfather No Known Problems Daughter No Known Problems Daughter other (cyst on brain) Son No Known Problems Son No Ocular Disease No Family History Malig Hyperthermia No Family History Social History Tobacco Use Smoking status: Never Smokeless tobacco: Never Tobacco comments: No smoking in family Vaping Use Vaping status: Never Used Substance and Sexual Activity Alcohol use: Not Currently Drug use: No Sexual activity: Yes Partners: Male control/protection: Vasectomy ALLERGIES Allergen Reactions Pereira Pepper Anaphylaxis, Other: See Comments Latex Anaphylaxis, Hives Amoxicillin Hives, Swelling Banana Swelling Latex Hives Verified by skin testing Nubain [Nalbuphine * Rash Avocado Itching Carrot Itching [place] And Derivati* Other: See Comments Kiwi Itching Hydroxyzine Other: See Comments Extreme fatigue Omeprazole Other: See Comments nausea Sertraline Other: See Comments Bruising, stopped by hematology 12/3022 was interacting with blood thinners Review of Systems Constitutional: Negative for chills and fever. HENT: Negative. Respiratory: Negative for shortness of breath. Cardiovascular: Negative for chest pain. Gastrointestinal: Negative for abdominal pain. Musculoskeletal: Positive for neck pain. Negative for arthralgias and myalgias. Allergic/Immunologic: Negative for immunocompromised state. Neurological: Negative for weakness and numbness. Hematological: Bruises/bleeds easily. Psychiatric/Behaviora l: Negative for confusion. Physical Exam Vitals [01/12/25 1705] BP Pulse Temp Temp src Resp SpO2 Weight Height 128/89 75 36.7 ?C (98 ?F) Temporal 19 100 % 53.5 kg (118 lb) 1.6 m (5' 3) Physical Exam Vitals and nursing note reviewed. Constitutional: General: She is awake. She is not in acute distress. Appearance: (more content not included)... Normal [facility] ED Triage Noteon 01-12-2025 ED Triage Note HNO ID: [id number] Author: ELOISE KING DO Service: Emergency Medicine Author Type: Physician Type: ED Triage Notes Filed: 01/12/2025 17:14 Note Text: ED INTAKE NOTE Patient Name: Matt Baum Service Date: 01/12/25 BRIEF HPI: This is a 34 year old female who presents to the ED with: left lateral neck and LUE pain. Stinging pain. H/O DVT in LUE. Developed DVT on eliquis in the past. Currently on lovenox Called vascular surgeon and sent in for repeat DVT US BRIEF EXAM: BP 128/89 Pulse 75 Temp (Src) 98 (Temporal) Resp 19 Ht 5' 3 (1.60m) Wt 118 lb (53.5kg) SpO2 100% LMP 11/25/2024 BMI 20.91 kg/(m2). NAD Awake and Alert Non labored breathing INITIAL WORKUP AND DECISION MAKING: Orders Placed This Encounter US DVT UPPER LEFT Provider examination performed via virtual platform with assistance from bedside clinician. SIGNATURE: Eloise King DO [facility] US DVT UPPER LTon 01-12-2025 US DVT UPPER LT * * *Final Report* * * DATE OF EXAM: Jan 12 2025 6:22PM MDGail 1003 - US DVT UPPER LT / PROCEDURE REASON: Arm pain or tenderness * * * * Physician Interpretation * * * * EXAMINATION: LEFT UPPER EXTREMITY DEEP VENOUS ULTRASOUND WITH DOPPLER IMAGING CLINICAL HISTORY: Arm pain. TECHNIQUE: Grayscale with compression maneuvers where accessible, color and spectral Doppler of the left internal jugular, subclavian, and axillary veins was performed. Grayscale with compression maneuvers of the left brachial, basilic and cephalic veins was also performed. The contralateral internal jugular and distal subclavian veins were imaged for comparison. Images were obtained and stored in a permanent archive. MQ: [id number] COMPARISON: Ultrasound DVT on 11/05/2024 RESULT: LEFT UPPER EXTREMITY DEEP VEINS Internal Jugular vein: Normal compression, normal spontaneous flow. Subclavian vein: Normal, spontaneous flow. Axillary vein: Normal compression, normal spontaneous flow. Brachial vein: Normal compression SUPERFICIAL VEINS Basilic vein: Normal compression. Cephalic vein: Normal compression. RIGHT UPPER EXTREMITY (FOR COMPARISON) DEEP VEINS Internal Jugular and Distal Subclavian veins: Normal compression, normal spontaneous flow. IMPRESSION: Negative study for DVT in the left upper extremity. Negative study for superficial thrombophlebitis in the imaged segments of the left upper extremity. Drug Safety Coordinator: PSCB Transcribe Date/Time: Jan 12 2025 6:23P Dictated by : AJIT SOLORZANO MD This examination was interpreted and the report reviewed and electronically signed by: AJIT SOLORZANO MD on Jan 12 2025 6:24PM EST [id number] [facility] CNPNon 12-29-2024 [facility] CNOVon 12-01-2024 CNOV Normal [facility] CNPNon 12-01-2024 CNPN Normal [facility] HIGH RISK HUMAN PAPILLOMA ANNE MARIE (HPV), PCR FOR DETECTION AND GENOTYPINGon 12-01-2024 HPV 16 Ag Ql (Unsp spec) Not detected Normal Not detected [facility] Comment on above: Order Comment: Speci men Type: FLUID SPECIMENOrdering Facility: [facility] Address: [address] [place] [address] Performed By: #### H PVHRT ####[facility] [id number] [place] [address] [place] HPV 18 Ag Ql (Unsp spec) Not detected Normal Not detected [facility] Comment on above: Order Comment: Speci men Type: FLUID SPECIMENOrdering Facility: [facility] Address: [address] [place] [address] Performed By: #### H PVHRT ####[facility] LABIA [id number] [place] [address] [place] HPV 31+33+35+39+45+51+52+ 56+58+59+66+68 DNA MAE+probe Ql (Cvx) Not detected Normal Not detected [facility] Comment on above: Order Comment: Speci men Type: FLUID SPECIMENOrdering Facility: [facility] Address: [address] [place] [address] Result Comment: High Risk HPV Other Type includes HPV types 31, 33, 35, 39, 45, 51, 52, 56, 58, 59, 66 and 68. Performed By: #### H PVHRT ####[facility] LABIA [id number] [place] [address] [place] PAP TESTon 12-01-2024 ADEQUACY Normal [facility] Comment on above: Order Comment: Speci men Type: FLUID SPECIMENOrdering Facility: [facility] Address: [address] [place] [address] Result Comment: Sati sfactory for interpretation.Transformation zone present Performed By: #### L [id number] ####[facility] LABCLIA [id number] [address] [address] [place] CASE REPORT Normal [facility] Comment on above: Order Comment: Speci men Type: FLUID SPECIMENOrdering Facility: [facility] Address: [address] [place] [address] Result Comment: Gyne cologic Cytology Report Case: [id number] Provider: Jonny Terrazas MD Collected: 12/01/2024 02:38 PMOrdering Location: OB/Gynecology Received: 12/01/2024 04:42 PMFirst Screen: Gmitro, Jm, CT, ASCPSpecimen: Pap Test, ThinPrep, Cervix Performed By: #### L [id number] ####[facility] LABCLIA [id number] [address] [address] [place] CLINICAL HISTORY, CYTOLOGY, MELT HOUSE DRAG OPERATOR Routine Exam Normal [facility] Comment on above: Order Comment: Speci men Type: FLUID SPECIMENOrdering Facility: [facility] Address: [address] [place] [address] Performed By: #### L [id number] ####[facility] LABCLIA [id number] [place] [id number] [place] FINAL PERFORMING LAB Normal [facility] Comment on above: Order Comment: Speci men Type: FLUID SPECIMENOrdering Facility: [facility] Address: [address] [place] [address] Result Comment: Tech nical component, windows server specialist screening performed at [facility], [address] [place] [address] CLIA# [id number] interpretation performed at [facility], [address] [place], [place] [address] CLIA# [id number] Director: Dhruv Pereira M.D. Performed By: #### L [id number] ####[facility] LABCLIA [id number] [address] [address] [place] INTERPRETATION, CYTOLOGY, MELT HOUSE DRAG OPERATOR Normal [facility] Comment on above: Order Comment: Speci men Type: FLUID SPECIMENOrdering Facility: [facility] Address: [address] [place] [address] Result Comment: Nega tive for intraepithelial lesion or malignancy. at 0954 EST Performed By: #### L [id number] ####[facility] LABCLIA [id number] [address] [address] [place] LMP 11/25/2024 Normal [facility] Comment on above: Order Comment: Speci men Type: FLUID SPECIMENOrdering Facility: [facility] Address: [address] [place] [address] Performed By: #### L [id number] ####[facility] LABCLIA [id number] [place] [id number] [place] PAP DISCLAIMER COMMENT The Pap Smear is a screening test for cervical cancer. False negative results occur with all screening tests, emphasizing the need for rescreening at recommended intervals, and clinical correlation. Normal [facility] Comment on above: Order Comment: Speci men Type: FLUID SPECIMENOrdering Facility: [facility] Address: [address] [place] [address] Performed By: #### L [id number] ####[facility] LABCLIA [id number] [address] [place] [address] [place] PAP REGISTERED NURSE SUPERVISOR COMMENT Normal [facility] Comment on above: Order Comment: Speci men Type: FLUID SPECIMENOrdering Facility: [facility] Address: [address] [place] [address] Performed By: #### L [id number] ####[facility] LABCLIA [id number] [address] [place] [address] [place] CNOVon 11-30-2024 CNOV Office Visit (FPDOYL ) MATT BAUM ([id number]) 1990 F Date Time Provider Department 11/30/24 2:40 PM ANN DICKINSON During your visit today, we recorded the following information about you: Temperature Pulse Blood pressure Weight 98 degrees 87/minute 100/68 54.9 kg Height 1.613 m Ann Dickinson PA-C 02/06/2025 10:20 AM Signed [facility] [place] [address] [facility] [address] Date of Evaluation: 11/30/2024 Patient Name: Matt Baum : 1990 Chief Complaint: Patient presents with: ER F/U: [facility] Main. 11/26/24. New Patient Subjective HPI Ms. Baum is a 33 year old female who presents to [facility]. She has a PMH of thoracic outlet syndrome, factor II deficiency, hypothyroidism, PE on Lovenox. Was just in the ED on 11/25 for On Eliquis since 2018. Was put on Lovenox in 2020 when with daughter. From January 2024-May 2024 on no blood thinners. On Lovenox from May - Jun 2024 and switched to eliquis in Jun. In Sep developed clot in left arm on Eliquis. Is having surgery February 01, maybe sooner. Dr. Guajardo. After that will be on Eliquis. TSH 13.2. Levothyroxine 88mcg has been her dose since September. When she was on [id number] dropped to 0.95. Review of Systems Constitutional: Negative for chills, fatigue and fever. Respiratory: Negative for cough and shortness of breath. Cardiovascular: Negative for chest pain and palpitations. Gastrointestinal: Negative for diarrhea, nausea and vomiting. Musculoskeletal: Negative for back pain and myalgias. Skin: Negative for rash. Neurological: Negative for dizziness, weakness and headaches. Psychiatric/Behaviora l: Negative for sleep disturbance. 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 Patient son born with a cyst on the brain. It was surgically removed when he was 6 years old. 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 PE (pulmonary thromboembolism) (HCC) 05/10/2019 05/10/2019 Situational stress 01/31/2020 Thoracic outlet syndrome 10/25/2024 Vocal cord dysfunction Paradoxical VOCAL CORD DYSFUNCTION PAST SURGICAL HISTORY Procedure Laterality Date APPENDECTOMY TONSILLECTOMY AND ADENOIDECTOMY FAMILY HISTORY Problem Relation Age of Onset Psychiatry Mother BIPOLAR Thyroid Mother Stroke Father Alcohol abuse Father No Known Problems Sister No Known Problems Sister No Known Problems Sister No Known Problems Brother Arthritis Maternal Grandmother Heart Maternal Grandmother Osteoporosis Maternal Grandmother Stroke Maternal Grandmother other (Hypotension) Maternal Grandmother Heart Maternal Grandfather Hypertension Maternal Grandfather Alcohol/Drug Maternal Grandfather Psychiatry Maternal Grandfather BIPOLAR No Known Problems Paternal Grandmother No Known Problems Paternal Grandfather No Known Problems Daughter No Known Problems Daughter other (cyst on brain) Son No Known Problems Son No Ocular Disease No Family History Malig Hyperthermia No Family History Social History Tobacco Use Smoking status: Never Smokeless tobacco: Never Tobacco comments: No smoking in family Vaping Use Vaping status: Never Used Substance Use Topics Alcohol use: Not Currently Drug use: No Current Outpatient Medications Medication Sig acetaminophen (TYLENOL EXTRA STRENGTH) 500 mg tablet Take 500 mg by mouth every 8 hours as needed. enoxaparin (LOVENOX) 60 mg/0.6 mL syrg Inject 0.55 mL subcutaneously two times a day. Inject entire contents of one(1) syringe levothyroxine (LEVOXYL) 88 mcg tablet Take 1 tablet by mouth once daily. Take on empty stomach. For Thyroid potassium chloride 20 mEq TbER Take 1 tablet by mouth once daily. No current facility-administered medications for this visit. I have confirmed and edited as necessary the chief complaint, medications, past medical, family and social histories obtained by others. Objective Ht 5' 3.5 (1.61m) Wt 121 lb (54.9kg) LMP 10/28/2024 BMI 21.10 kg/(m2). Physical Exam Vitals and nursing note reviewed. Constitutional: Appearance: Normal appearance. HENT: Head: Normocephalic and atraumatic. Eyes: Pupils: Pupils are equal, round, and reactive to light. Cardiovascular: Rate and Rhythm: Normal rate and regular rhythm. Pulses: Normal pulses. Heart sounds: Normal heart sounds. No murmur heard. Pulmonary: Effort: (more content not included)... Normal [facility] BETA HCG, QUANTITATIVE FOR E Don 11-26-2024 HCG.beta subunit Qn m[IU]/mL Normal <5.0 [facility] Comment on above: Order Comment: Speci men Type: BLOOD SPECIMENOrdering Facility: [facility] Address: [address] [place] [address] Result Comment: Nega tive Performed By: #### 3 051-0, HCGED, 50032-8, [id number], 3016-3, 3024-7 ####[facility] LABCLIA [id number] [place] [address] [place] Basic metabolic 2000 panelon 11-26-2024 Anion gap [Moles/Vol] 10 mmol/L Normal 8-15 [facility] Comment on above: Order Comment: Speci men Type: BLOOD SPECIMENOrdering Facility: [facility] Address: [address] [place] [address] Performed By: #### 3 051-0, HCGED, 73809-2, [id number], 3016-3, 3024-7 ####[facility] LABCLIA [id number] [place] [address] [place] Calcium [Mass/Vol] 9.4 mg/dL Normal 8.5-10.2 [facility] Comment on above: Order Comment: Speci men Type: BLOOD SPECIMENOrdering Facility: [facility] Address: [address] [place] [address] Performed By: #### 3 051-0, HCGED, 86347-2, [id number], 3016-3, 3027 ####[facility] LABCLIA [id number] [facility] [place] [address] [place] Chloride [Moles/Vol] 104 mmol/L Normal 98-107 [facility] Comment on above: Order Comment: Speci men Type: BLOOD SPECIMENOrdering Facility: [facility] Address: [address] [place] [address] Performed By: #### 3 051-0, HCGED, 88160-7, [id number], 3, 7 ####[facility] LABCLIA [id number] [place] [address] [place] CO2 [Moles/Vol] 26 mmol/L Normal 22-30 [facility] Comment on above: Order Comment: Speci men Type: BLOOD SPECIMENOrdering Facility: [facility] Address: [address] [place] [address] Performed By: #### 3 051-0, HCGED, 51402-5, [id number], 3, 7 ####[facility] LABCLIA [id number] [place] [address] [place] Creatinine [Mass/Vol] 0.80 mg/dL Normal 0.58-0.96 [facility] Comment on above: Order Comment: Speci men Type: BLOOD SPECIMENOrdering Facility: [facility] Address: [address] [place] [address] Performed By: #### 3 051-0, HCGED, 60820-8, [id number], 3016-3, 7 ####[facility] LABCLIA [id number] [place] [address] [place] Creatinine and Glomerular filtration rate.predicted panel (S/P/Bld) 99 mL/min/1.73m??? Normal >=60 [facility] Comment on above: Order Comment: Jose polanco Type: BLOOD SPECIMENOrdering Facility: [facility] Address: [address] [place] [address] Result Comment: Valarie mated Glomerular Filtration Rate (eGFR) is calculated using the 2020 CKD-EPI creatinine equation. This equation utilizes serum creatinine, sex, and age as parameters. The creatinine assay has traceable calibration to isotope dilution-mass spectrometry. Refer to KDIGO guidelines for clinical interpretation. In patients with unstable renal function, e.g. those with acute kidney injury, the eGFR may not accurately reflect actual GFR. Performed By: #### 3 051-0, HCGED, 05024-4, [id number], 3016-3, 3024-7 ####[facility] LABCLIA [id number] [place] [address] [place] [facility] Glucose [Mass/Vol] 98 mg/dL Normal 74-99 [facility] Comment on above: Order Comment: Jose polanco Type: BLOOD SPECIMENOrdering Facility: [facility] Address: [address] [place] [address] Result Comment: The [place] Diabetes Association (ADA) provides guidance for cutoff values for fasting glucose and random glucose. The ADA defines fasting as no caloric intake for at least 8 hours. Fasting plasma glucose results between 100 to 125 mg/dL indicate increased risk for diabetes (prediabetes).Fasting plasma glucose results greater than or equal to 126 mg/dL meet the criteria for diagnosis of diabetes. In the absence of unequivocal hyperglycemia, results should be confirmed by repeat testing. In a patient with classic symptoms of hyperglycemia or hyperglycemic crisis, random plasma glucose results greater than or equal to 200 mg/dL meet the criteria for diagnosis of diabetes.Reference: Standards of Medical Care in Diabetes 2016, [place] Diabetes Association. Diabetes Care. 2016.39(Suppl 1). Performed By: #### 3 051-0, HCGED, 65126-6, [id number], 3016-3, 3024-7 ####[facility] LABCLIA [id number] [address] [address] [place] Potassium [Moles/Vol] 3.6 mmol/L Low 3.7-5.1 [facility] Comment on above: Order Comment: Speci men Type: BLOOD SPECIMENOrdering Facility: [facility] Address: [address] [place] [address] Performed By: #### 3 051-0, HCGED, 11314-0, [id number], 3016-3, 3024-7 ####[facility] LABCLIA [id number] [place] [address] [place] Sodium [Moles/Vol] 140 mmol/L Normal 136-144 [facility] Comment on above: Order Comment: Speci men Type: BLOOD SPECIMENOrdering Facility: [facility] Address: [address] [place] [address] Performed By: #### 3 051-0, HCGED, 09131-1, [id number], 3016-3, 302-7 ####[facility] LABCLIA [id number] [place] [address] [place] Urea nitrogen [Mass/Vol] 10 mg/dL Normal 7-21 [facility] Comment on above: Order Comment: Speci men Type: BLOOD SPECIMENOrdering Facility: [facility] Address: [address] [place] [address] Performed By: #### 3 051-0, HCGED, 78081-2, [id number], 3016-3, 3024-7 ####[facility] LABCLIA [id number] [place] [id number] [place] CBC panel Auto (Bld)on 11-26 Erythrocyte distribution width (RBC) [Ratio] 13.0 % Normal 11.5-15.0 [facility] Comment on above: Order Comment: Speci men Type: BLOOD SPECIMENOrdering Facility: [facility] Address: [address] [place] [address] Performed By: #### 5 8410-2 ####[facility] LABCLIA [id number] [place] [address] [place] Hematocrit (Bld) [Volume fraction] 39.8 % Normal 36.0-46.0 [facility] Comment on above: Order Comment: Speci men Type: BLOOD SPECIMENOrdering Facility: [facility] Address: [address] [place] [address] Performed By: #### 5 8410-2 ####[facility] LABIA [id number] [place] [address] [place] Hemoglobin (Bld) [Mass/Vol] 13.0 g/dL Normal 11.5-15.5 [facility] Comment on above: Order Comment: Speci men Type: BLOOD SPECIMENOrdering Facility: [facility] Address: [address] [place] [address] Performed By: #### 5 8410-2 ####[facility] LABIA [id number] [place] [address] [place] MCH (RBC) [Entitic mass] 28.3 pg Normal 26.0-34.0 [facility] Comment on above: Order Comment: Speci men Type: BLOOD SPECIMENOrdering Facility: [facility] Address: [address] [place] [address] Performed By: #### 5 8410-2 ####[facility] LABIA [id number] [place] [address] [place] MCHC (RBC) [Mass/Vol] 32.7 g/dL Normal 30.5-36.0 [facility] Comment on above: Order Comment: Speci men Type: BLOOD SPECIMENOrdering Facility: [facility] Address: [address] [place] [address] Performed By: #### 5 8410-2 ####[facility] LABIA [id number] [place] [address] [place] MCV (RBC) [Entitic vol] 86.5 fL Normal 80.0-100.0 [facility] Comment on above: Order Comment: Speci men Type: BLOOD SPECIMENOrdering Facility: [facility] Address: [address] [place] [address] Performed By: #### 5 8410-2 ####[facility] LABCLIA [id number] [place] [address] [place] Nucleated RBC (Bld) [#/Vol] 10*3/uL Normal <0.01 [facility] Comment on above: Order Comment: Speci men Type: BLOOD SPECIMENOrdering Facility: [facility] Address: [address] [place] [address] Performed By: #### 5 8410-2 ####[facility] LABIA [id number] [place] [address] [place] Platelet mean volume (Bld) [Entitic vol] 10.9 fL Normal 9.0-12.7 [facility] Comment on above: Order Comment: Speci men Type: BLOOD SPECIMENOrdering Facility: [facility] Address: [address] [place] [address] Performed By: #### 5 8410-2 ####[facility] LABIA [id number] [place] [address] [place] Platelets (Bld) [#/Vol] 157 10*3/uL Normal 150-400 [facility] Comment on above: Order Comment: Speci men Type: BLOOD SPECIMENOrdering Facility: [facility] Address: [address] [place] [address] Performed By: #### 5 8410-2 ####[facility] LABIA [id number] [place] [address] [place] RBC (Bld) [#/Vol] 4.60 10*6/uL Normal 3.90-5.20 [facility] Comment on above: Order Comment: Speci men Type: BLOOD SPECIMENOrdering Facility: [facility] Address: [address] [place] [address] Performed By: #### 5 8410-2 ####[facility] LABCLIA [id number] [place] [address] [place] WBC (Bld) [#/Vol] 4.13 10*3/uL Normal 3.70-11.00 [facility] Comment on above: Order Comment: Speci men Type: BLOOD SPECIMENOrdering Facility: [facility] Address: [address] [place] [address] Performed By: #### 5 8410-2 ####[facility] LABCLIA [id number] [place] [address] [place] CTA CHEST (NON GATED) W IVCO N PEon 11-26-2024 CTA CHEST (NON GATED) W IVCON PE Normal [facility] ECG COMPLETEon 11-26-2024 ECG COMPLETE Normal [facility] ED NOTEon 11-26-2024 ED NOTE HNO ID: [id number] Author: ALISSA BARON, RN Service: Emergency Medicine Author Type: Registered Nurse Type: ED Notes Filed: 11/26/2024 09:14 Note Text: Discharge instructions discussed. Pt verbalized understanding. IV discontinued. Normal [facility] ED NOTE Normal [facility] ED PROV NOTEon 11-26-2024 ED PROV NOTE Normal [facility] HIGH SENSITIVITY TROPONIN T (INITIAL)on 11-26-2024 Troponin T.cardiac High sensitivity method [Mass/Vol] <6 Normal <12 [facility] Comment on above: Order Comment: Speci men Type: BLOOD SPECIMENOrdering Facility: [facility] Address: [address] [place] [address] Performed By: #### 3 051-0, HCGED, 67051-6, [id number], 3016-3, 3024-7 ####[facility] LABCLIA [id number] [place] [address] [place] HIGH SENSITIVITY TROPONIN T (SECOND)on 11-26-2024 Troponin T.cardiac High sensitivity method [Mass/Vol] <6 Normal <12 [facility] Comment on above: Order Comment: Speci men Type: BLOOD SPECIMENOrdering Facility: [facility] Address: [address] [place] [address] Performed By: #### L [id number] ####[facility] LABCLIA [id number] [place] [address] [place] PT panel Coag (PPP)on 2024 INR Coag (PPP) [Relative time] 1.1 {INR} Normal 0.9-1.3 [facility] Comment on above: Order Comment: Speci men Type: BLOOD SPECIMENOrdering Facility: [facility] Address: [address] [place] [address] Result Comment: Olinda min K Antagonist (VKA) Therapeutic Range: INR 2 to 3 (Target INR of 2.5)Note: For patients treated with VKA drugs, such as warfarin, the [place] College [employer]icians 2012 Guideline recommends a therapeutic INR range of 2 to 3 (target INR of 2.5). This recommendation includes high-risk patients with antiphospholipid syndrome with previous arterial or venous thromboembolism, current-generation mechanical or bioprosthetic aortic heart valve replacement.Note: Patients with mechanical aortic valve replacement and additional risk factors for thromboembolic events (atrial fibrillation, previous thromboembolism, LV dysfunction, hypercoagulable conditions) or an older generation mechanical AVR (i.e., ball in-Cage) or any mechanical MVR should have a INR therapeutic range of 2.5 to 3.5 (target INR of 3).Haritha GH, et al. Chest 2012, 141:7S-47SNishimura RA, et al. [facility] 2017, 70: 252-289 Performed By: #### 3 4528-0, 37155-8 ####[facility] LABIA [id number] [place] [address] [place] PT Coag (PPP) [Time] 11.7 s Normal 9.7-13.0 [facility] Comment on above: Order Comment: Speci men Type: BLOOD SPECIMENOrdering Facility: [facility] Address: [address] [place] [address] Performed By: #### 3 4528-0, 99702-5 ####[facility] LABCLIA [id number] [place] [address] [place] T3Free SerPl-mCncon 11-26-19 25 Free T3 [Mass/Vol] 2.2 pg/mL Low 2.3-4.1 [facility] Comment on above: Order Comment: Speci men Type: BLOOD SPECIMENOrdering Facility: [facility] Address: [address] [place] [address] Performed By: #### 3 051-0, HCGED, 78362-3, [id number], 3016-3, 3024-7 ####[facility] LABCLIA [id number] [place] [address] [place] T4 Free SerPl-mCncon 025 Free T4 [Mass/Vol] 1.1 ng/dL Normal 0.9-1.7 [facility] Comment on above: Order Comment: Speci men Type: BLOOD SPECIMENOrdering Facility: [facility] Address: [address] [place] [address] Performed By: #### 3 051-0, HCGED, 61306-2, [id number], 3016-3, 3024-7 ####[facility] LABIA [id number] [place] [address] [place] TSH SerPl-aCncon 11-26-2024 TSH Qn 13.200 m[IU]/L High 0.270-4.200 [facility] Comment on above: Order Comment: Speci men Type: BLOOD SPECIMENOrdering Facility: [facility] Address: [address] [place] [address] Result Comment: If t he patient is , TSH reference range varies by gestational period:First Trimester (weeks 9-12): 0.180-2.990 mIU/LSecond Trimester: 0.110-3.980 mIU/LThird Trimester: 0.480-4.710 mIU/Jim Ozuna et al. A Practical Approach for the Verifications and Determination of Site- and Trimester-Specific Reference Intervals for Thyroid Function tests in . Thyroid, 2019:29:3:412-420. Dom Nichols, et al. 2017 Guidelines of the [place] Thyroid Association for the Diagnosis and Management of Thyroid Disease during and the . Thyroid, 2017:27:3:315-389. Performed By: #### 3 051-0, HCGED, 37018-8, [id number], 3016-3, 3024-7 ####[facility] LABCLIA [id number] [place] [id number] [place] aPTT PPPon 11-26-2024 aPTT Coag (PPP) [Time] 30.9 s Normal 23.0-32.4 [facility] Comment on above: Order Comment: Speci men Type: BLOOD SPECIMENOrdering Facility: [facility] Address: [address] [place] [address] Performed By: #### 3 4528-0, 47401-9 ####[facility] LABIA [id number] [address] [place] CNPNon 11-25-2024 CNPN Normal [facility] ED Triage Noteon 11-25-2024 ED Triage Note Normal [facility] XR CHEST 2V FRONTAL/LATon XR CHEST 2V FRONTAL/LAT Normal [facility] ALLIED HEALTHon 11-21-2024 ALLIED HEALTH HNO ID: [id number] Author: ALEJANDRO CAMP Tech Service: Radiology Author Type: Artificial Glass Eye Maker Type: Allied Health Filed: 11/21/2024 23:30 Note Text: Radiology Service Progress Note PATIENT NAME: Matt Baum DATE OF SERVICE: November 21, 2024 TIME: 11:30 PM PATIENT IDENTITY VERIFICATION COMPLETED USING TWO (2) IDENTIFIERS: Name and Date of confirmed by patient verbally. FALL SCREENING: Has the patient had 2 falls in the last year or 1 fall with injury or currently using an Ambulatory Assistive Device (Walker, Cane, Wheelchair, Crutches, etc.)? Emergency Room Patient: Screened in ED PATIENT GENDER DATA: Assigned female at . status: : No status: NO. PATIENT RELEVANT IMPLANT DATA REVIEWED: Not Applicable PATIENT PRESENTS WITH AN IMPLANTABLE OR ATTACHED SENIOR AUTOMATION ENGINEER: No RADIOLOGY DEPARTMENT: Ultrasound PERIPHERAL IV DATA: Not applicable SIGNED BY: Marysol Crespo November 21, 2024 11:30 PM [facility] CNOVon 11-21-2024 CNOV Normal [facility] CNPNon 11-21-2024 CNPN Normal [facility] ED PROV NOTEon 11-21-2024 ED PROV NOTE HNO ID: [id number] Author: RAMOS ISIDRO DO Service: Emergency Medicine Author Type: Physician Type: ED Provider Notes Filed: 11/22/2024 02:10 Note Text: ED Provider Note Patient Name: Matt Baum : 1990 SERVICE DATE: 11/21/24 History Patient presents with: Pain (foot): Pt noticed swelling and numbness in foot. Pt reports hurting foot between gate and stairs. Numbness started today. Pt also reports pain in right leg. Pt is on a blood thinner. Pt went to urgent care today but was told to come to ED. Leg Pain Matt Baum is a 33-year-old female with history of hypothyroidism, factor II deficiency, anxiety, gastric ulcer, PE, thoracic outlet syndrome, presents for right leg pain and tingling to her third and fourth toes. She notes that she injured the foot/toes about 3 weeks ago when she excellently stepped wrong on a baby gate. She notes she still having pain. She went to urgent care today and they did an x-ray that was negative. While there, she mentioned that she had some pain in the right groin that was intermittent and felt intermittent numbness and tingling to the toes. She was sent in for DVT rule out. She is currently on Lovenox. She does have a known left IJ clot. She is compliant with her Lovenox. 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 Patient son born with a cyst on the brain. It was surgically removed when he was 6 years old. 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 PAST SURGICAL HISTORY Procedure Laterality Date APPENDECTOMY TONSILLECTOMY AND ADENOIDECTOMY FAMILY HISTORY Problem Relation Age of Onset Psychiatry Mother BIPOLAR Thyroid Mother Stroke Father Alcohol abuse Father No Known Problems Sister No Known Problems Sister No Known Problems Sister No Known Problems Brother Arthritis Maternal Grandmother Heart Maternal Grandmother Osteoporosis Maternal Grandmother Stroke Maternal Grandmother other (Hypotension) Maternal Grandmother Heart Maternal Grandfather Hypertension Maternal Grandfather Alcohol/Drug Maternal Grandfather Psychiatry Maternal Grandfather BIPOLAR No Known Problems Paternal Grandmother No Known Problems Paternal Grandfather No Known Problems Daughter No Known Problems Daughter other (cyst on brain) Son No Known Problems Son No Ocular Disease No Family History Malig Hyperthermia No Family History Social History Tobacco Use Smoking status: Never Smokeless tobacco: Never Tobacco comments: No smoking in family Vaping Use Vaping status: Never Used Substance and Sexual Activity Alcohol use: Not Currently Drug use: No Sexual activity: Not on file Comment: not asked ALLERGIES Allergen Reactions Pereira Pepper Anaphylaxis, Other: See Comments Latex Anaphylaxis, Hives Amoxicillin Hives, Swelling Banana Swelling Latex Hives Verified by skin testing Nubain [Nalbuphine * Rash Avocado Itching Carrot Itching [place]* Other: See Comments Kiwi Itching Hydroxyzine Other: See Comments Extreme fatigue Omeprazole Other: See Comments nausea Sertraline Other: See Comments Bruising, stopped by hematology 12/3022 was interacting with blood thinners Review of Systems Musculoskeletal: Right leg pain, right third fourth toe pain Physical Exam Vitals [11/21/242028] BP Pulse Temp Temp src Resp SpO2 Weight Height 116/70 82 36.9 ?C (98.5 ?F) Oral 16 100 % 53.5 kg (118 lb) -- Physical Exam Vitals and nursing note reviewed. Constitutional: General: She is not in acute distress. Appearance: She is well-developed. She is not ill-appearing or diaphoretic. HENT: Head: Normocephalic and atraumatic. Mouth/Throat: Mouth: Mucous membranes are moist. Eyes: General: No scleral icterus. Conjunctiva/sclera: Conjunctivae normal. Neck: Vascular: No JVD. Cardiovascular: Rate and Rhythm: Normal rate and regular rhythm. Heart sounds: Normal heart sounds. No murmur heard. No friction rub. No gallop. Pulmonary: Effort: Pulmonary effort is normal. No respiratory distress. Breath sounds: Normal breath sounds. No wheezing or rales. Musculoskeletal: General: Tenderness present. No swelling. Normal range of motion. Cervical back: Neck supple. Right lower leg: No edema. Left lower leg: No edema. Legs: Comments: Right third and fourth toe ecchymosis noted. Minimal pain o (more content not included)... [facility] ED Triage Noteon 11-21-2024 ED Triage Note HNO ID: [id number] Author: ADRIAN MOREAU PA-C Service: ? Author Type: Physician Log Chain Feeder Type: ED Triage Notes Filed: 11/21/2024 21:06 Note Text: ED TRIAGE PROVIDER NOTE Patient Name: Matt Baum Service Date: 11/21/24 BRIEF HPI: This is a 33 year old female who presents to the ED with: Concerns for a DVT in RLE Hx of Factor 2 Deficiency On Coumadin after developing a DVT/PE on Eliquis Has TOS surgery scheduled for later this month Injured right foot 3 weeks ago, still having pain XR neg Weird numbness and tingling to RLE Sent by PCP to eval for DVT BRIEF EXAM: NAD Awake and Alert Non labored breathing No focal neurological deficits RLE no swelling Good color and perfusion INITIAL WORKUP AND DECISION MAKING: Orders Placed This Encounter US DVT LOWER RIGHT SIGNATURE: Adrian Moreau PA-C [facility] US DVT LOWER RTon 11-21-2024 US DVT LOWER RT * * *Final Report* * * DATE OF EXAM: Nov 21 2024 11:29PM MDU 1007 - US DVT LOWER RT / PROCEDURE REASON: Leg pain or tenderness * * * * Physician Interpretation * * * * EXAMINATION: RIGHT LOWER EXTREMITY DEEP VENOUS ULTRASOUND WITH DOPPLER IMAGING CLINICAL HISTORY: Leg pain. Swelling. TECHNIQUE: Grayscale with compression maneuvers, color Doppler and spectral Doppler imaging of the right proximal deep veins was performed. Grayscale with compression maneuvers of the peroneal and posterior tibial veins was performed. The right great and small saphenous veins were evaluated at their insertion to the deep system. The contralateral common femoral vein was imaged for comparison. Images were obtained and stored in a permanent archive. MQ: [id number] COMPARISON: 06/02/2024 RESULT: RIGHT LOWER EXTREMITY PROXIMAL DEEP VEINS Distal External Iliac, Common Femoral and proximal Profunda Veins: Compression: Normal Doppler: Normal, spontaneous respirophasic flow. Normal response to augmentation. Femoral vein: Compression: Normal Doppler: Normal, spontaneous flow. Normal response to augmentation. Popliteal vein: Compression: Normal Doppler: Normal, spontaneous flow. Normal response to augmentation. CALF DEEP VEINS Peroneal veins: Normal compression. Posterior tibial veins: Normal compression. SUPERFICIAL VEINS Great saphenous: Patent and compressible at insertion into common femoral vein; not otherwise assessed. Small Saphenous: Patent and compressible in the proximal calf, not otherwise assessed. LEFT LOWER EXTREMITY (FOR COMPARISON) Common Femoral Vein: Compression: Normal Doppler: Normal, spontaneous respirophasic flow. Normal response to augmentation. IMPRESSION: Negative study for proximal DVT in the right lower extremity. Negative study for calf DVT in the right lower extremity. Negative study for superficial thrombophlebitis in the imaged segments of the right lower extremity. Drug Safety Coordinator: SNEHAL Transcribe Date/Time: Nov 22 2024 1:45A Dictated by : YULISSA HERNÁNDEZ MD This examination was interpreted and the report reviewed and electronically signed by: YULISSA HERNÁNDEZ MD on Nov 22 2024 1:50AM EST [id number] [facility] XR FOOT 3V AP/LAT/OBL RTon 0 11-21-2024 XR FOOT 3V AP/LAT/OBL RT Normal [facility] XR Foot - right AP and Later al and obliqueon 11-21-2024 IMPRESSION: Negative right foot. Drug Safety Coordinator: SNEHAL Transcribe Date/Time: Nov 21 2024 4:54P Dictated by : BOB COLE MD This examination was interpreted and the report reviewed and electronically signed by: BOB COLE MD on Nov 21 2024 4:55PM [facility] DIVISION OF RADIOLOGY * * *Final Report* * * DATE OF EXAM: Nov 21 2024 4:52PM WOX [id number] - XR FOOT 3V AP/LAT/OBL RT / PROCEDURE REASON: Injury of right foot, initial encounter * * * * Physician Interpretation * * * * RIGHT FOOT X-RAY SERIES HISTORY: Injury of right foot, initial encounter pain TECHNIQUE: AP, lateral and oblique views. COMPARISON: None available. RESULT: No fracture, dislocation or destructive changes. Joint spaces and articular surfaces are preserved. DIVISION OF RADIOLOGY Provider, [facility] - 11/21/2024 * * *Final Report* * * DATE OF EXAM: Nov 21 2024 4:52PM WOX 5337 - XR FOOT 3V AP/LAT/OBL RT / PROCEDURE REASON: Injury of right foot, initial encounter * * * * Physician Interpretation * * * * RIGHT FOOT X-RAY SERIES HISTORY: Injury of right foot, initial encounter pain TECHNIQUE: AP, lateral and oblique views. COMPARISON: None available. RESULT: No fracture, dislocation or destructive changes. Joint spaces and articular surfaces are preserved. IMPRESSION IMPRESSION: Negative right foot. Drug Safety Coordinator: [facility] Transcribe Date/Time: Nov 21 2024 4:54P Dictated by : BOB COLE MD This examination was interpreted and the report reviewed and electronically signed by: BOB COLE MD on Nov 21 2024 4:55PM [facility] Study observation (narrative) [facility] XR Foot - right AP and Later al and obliqueOrdered By: [facility] Provider on 11-21-2024 [facility] ANES POSTPROC EVALon 025 ANES POSTPROC EVAL HNO ID: [id number] Author: KHAI WHITE MD Service: Anesthesiology Author Type: Physician Type: Anesthesia Postprocedure Evaluation Filed: 11/17/2024 11:11 Note Text: POST ANESTHESIA EVALUATION NOTE : 1990 Procedure Summary Date: 11/17/24 Room / Location: OR / MM OR Anesthesia Start: 734 Anesthesia Stop: 819 Procedure: VENOGRAM EXTREMITY UPPER (Left: Arm) Diagnosis: TOS (thoracic outlet syndrome) (TOS (thoracic outlet syndrome) [G54.0]) Surgeons: Praful Guajardo MD Responsible Provider: Khai White MD Anesthesia Type: MAC ASA Status: 2 Anesthesia Type: MAC Last Vitals Vitals Value Taken Time BP 103/70 11/17/24 0920 Temp 36.7 ?C (98 ?F) 11/17/24914 HR SpO2 59 11/17/24919 Resp 13 11/17/24919 SpO2 98 % 11/17/24919 [facility] AN POST OP NOTE Anesthesia Observations No Documentation SIGNATURE: Khai White MD PATIENT NAME: Matt Baum DATE: November 17, 2024 TIME: 11:11 AM CSN: [id number] [facility] ANES PRE-OPon 11-17-2024 ANES PRE-OP HNO ID: [id number] Author: KHAI WHITE MD Service: Anesthesiology Author Type: Physician Type: Anesthesia Preprocedure Evaluation Filed: 11/17/2024 07:08 Note Text: ANESTHESIOLOGY DAY OF SURGERY NOTE : 1990 Procedure Information Date/Time: 11/17/24729 Procedure: VENOGRAM EXTREMITY UPPER (Left: Arm) Location: MM OR04 / MM OR Surgeons: Praful Guajardo MD Estimated body mass index is 21.43 kg/m? as calculated from the following: Height as of 11/05/24: 160 cm (5' 3). Weight as of 11/11/24: 54.9 kg (121 lb). 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 Tracheostomy tube not present Mallampati: II. TM distance: >3 FB. Neck ROM: full ROM without neurological symptoms. Mouth opening: adequate. Short neck: no. Thick neck: no Additional exam findings: no II - ANESTHESIA PLAN ASA Score: 2 Anesthetic Plan: MAC NPO Status: adequate Beta Rosalie Monitoring Plan Monitoring plan: standard ASA. Post Procedure Analgesic Plan Postoperative analgesic plan: parenteral or oral opioids and multimodal analgesia. Patient / Surrogate agrees to blood products: blood products not planned Significant changes in the patient condition since the History and Physical, not otherwise documented in primary service progress note: no. Vitals Value Taken Time BP 111/70 11/17/24 0630 Pulse Resp 20 11/17/24 0630 Temp 36.4 ?C (97.6 ?F) 11/17/24 0630 SpO2 100 % 11/17/24 0630 Facility-Administered Medications as of 11/17/2024 Medication Dose Route Frequency lidocaine (PF) 10 mg/mL (1 %) 1-2 mg injection (XYLOCAINE) 0.1-0.2 mL INTRADERMAL PRN NaCl 0.9% iv flush bag 20 mL INTRAVENOUS PRN Outpatient Medications as of 11/17/2024 Medication Sig levothyroxine (LEVOXYL) 88 mcg tablet Take 1 tablet by mouth once daily. Take on empty stomach. For Thyroid potassium chloride 20 mEq TbER Take 1 tablet by mouth once daily. I have interviewed and examined the patient. I have reviewed the medical record and/or the pre-anesthesia evaluation, pertinent labs, and test results. This contains updated information obtained within 48 hours of Surgery/Procedure. SIGNATURE: Khai White MD PATIENT NAME: Matt Baum DATE: November 17, 2024 TIME: 7:08 AM CSN: [id number] [facility] BRIEF OP NOTon 11-17-2024 BRIEF OP NOT HNO ID: [id number] Author: SIOBHAN PORTER MD Service: Vascular Surgery Author Type: Resident Type: Brief Op Note Filed: 11/17/2024 08:16 Note Text: BRIEF OPERATIVE / PROCEDURE NOTE LOG ID: [id number] Surgery/Procedure Date: 11/17/2024 Incision/Procedure Start Time: 7:54 AM Incision Close/Procedure End Time: Surgeon(s)/Procedural ist(s) and Log Chain Feeder(s): Surgeons and Role: * Praful Guajardo MD - Primary * Siobhan Porter MD No Additional Staff Procedure(s): VENOGRAM EXTREMITY UPPER: 38752 (CPT?) Left arm venogram Central venogram TARAN Angio: Access: L basilic 5F Closure: manual pressure Contrast: 20cc Fluorotime: 0.7 min, 6 mGy Anesthesia: Monitored Anesthesia Care ASA Class: Findings: Patent axillary, subclavian, and innominate, with significant compression of subclavian with abduction. No acute thrombus Medications: Antiplatelet: no Anticoagulation: Lovenox Statin: no Beta Rosalie: no Post-operative Plan of Care: Will plan for L FRR Estimated Blood Loss: Minimal Specimens: * No specimens in log * Implants: * No implants in log * Complications: None Pre-Op/Pre-Procedure Diagnosis: Venous TOS Post-Op/Post-Procedur e Diagnosis: Same as preop SIGNATURE: Siobhan Porter MD PATIENT NAME: Matt Baum DATE: November 17, 2024 TIME: 8:13 AM PAGER/CONTACT #: [phone] [facility] OPERATIVE NOon 11-17-2024 OPERATIVE NO HNO ID: [id number] Author: PRAFUL GUAJARDO MD Service: Vascular Surgery Author Type: Physician Type: Operative Report Filed: 11/17/2024 08:18 Note Text: OPERATIVE/PROCEDURE REPORT LOG ID: [id number] Surgery/Procedure Date: 11/17/2024 Incision/Procedure Start Time: 7:54 AM Incision Close/Procedure End Time: 8:07 AM Surgeon(s)/Procedural ist(s) and Log Chain Feeder(s): Surgeons and Role: * Praful Guajardo MD - Primary * Siobhan Porter MD No Additional Staff PROCEDURE INDICATION: 33 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 She was already on chronic 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 for factor II deficiency with PE/DVT and her arm swelling had improved in the interim. After discussion of the risk and benefits, she was taken to the operating room for the procedure below. Of note, her 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 was not stopped perioperatively INTERVENTIONAL PROCEDURE: Ultrasound-guided left basilic vein percutaneous access Limited left upper extremity and central venogram Anesthesia: Procedural Sedation PROCEDURAL DETAILS The patient was taken to the operating room and laid supine on the table. After time-in and under continuous oxygen and monitoring, IV analgesia and sedation were given. Moderate sedation consisting of continuous ECG, pulse oxymetry, cardiopulmonary monitoring, IV analgesia and sedation was performed by the nurse, overseen by the performing physicians. The left upper extremity was prepped and draped in the usual sterile fashion. Using local anesthesia, ultrasound guidance, and a micropuncture system, the left basilic vein was accessed at the antecubital fossa. A 5-Tristanian sheath was exchanged into the vein over a stiff Glidewire and a limited left upper extremity and central venogram was performed with selected DSA runs. This demonstrated a patent axillosubclavian and innominate vein segment around the thoracic outlet. There did appear to be turbulence at the innominate origin. I then repeated the venogram with the arm in an Abducted position which showed significant compression of her subclavian vein. This compression resolved when the arm was Adducted to her side. The innominate vein and SVC were other otherwise widely patent. Based on this information, I concluded the procedure. Wire, catheter and sheath were removed. Manual pressure was held until hemostasis achieved. The patient tolerated the procedure well and was recovered in the short stay unit. 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 SIGNATURE: Praful Guajardo MD PATIENT NAME: Matt Baum DATE: 11/17/2024 TIME: 8:13 AM PAGER/CONTACT #: [phone] [facility] THERAPY NTon 11-15-2024 THERAPY NT Normal [facility] CNOVon 11-11-2024 CNOV Normal [facility] CNTHERAPYon 11-08-2024 CNTHERAPY Normal [facility] THERAPY NTon 11-08-2024 THERAPY NT Normal [facility] CNPNon 11-07-2024 CNPN Normal [facility] ED NOTEon 11-06-2024 ED NOTE HNO ID: [id number] Author: BAYLEE DUMONT, RN Service: Emergency Medicine Author Type: Registered Nurse Type: ED Notes Filed: 11/06/2024 02:10 Note Text: Discharge instructions given to pt. Pt verbalized understanding of follow up with PCP and s/s to return to ED. All questions answered. Pt ambulatory by self on departure. Normal [facility] ED PROV NOTEon 11-06-2024 ED PROV NOTE HNO ID: [id number] Author: KWABENA LAI MD Service: Emergency Medicine Author Type: Physician Type: ED Provider Notes Filed: 11/06/2024 01:41 Note Text: Attending Note Brief HPI: Matt Baum is a 33 year old female with a PMH as documented below who presents for evaluation of left arm discomfort and swelling. Patient has a long complicated history of clotting in her left upper extremity following with vascular surgery at [facility]. It seems that the current thought is that she likely has some type of neurogenic thoracic outlet syndrome on the left leading to increased risk of blood clotting. She unfortunately is failed multiple different anticoagulants including DOAC's and is currently on Lovenox. She maintains that she is very compliant with this. She believes she may have missed 1 dose on Thursday after her kids were sick at home and she had been up all night but is otherwise very compliant with it. She is noted increasing pain and pressure in her arm over the last few days. She was concerned that she may have worsening clot. No syncope or chest pain with this. Pain is primarily in her forearm. She feels like it is mildly swollen compared to its baseline. There is been no trauma or injury. She has not had any recent IVs or lines placed. 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 Patient son born with a cyst on the brain. It was surgically removed when he was 6 years old. 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 Biceps region is unremarkable. There is a small amount of swelling over the ulnar aspect of the elbow. No appreciable forearm swelling. Radial and ulnar pulses are intact and symmetric with the right. Capillary fill is intact distally. Sensation intact throughout. Full range of motion at elbow and wrist without pain. MDM: Is a medically complex 33-year-old female on Lovenox for left upper extremity DVTs failing multiple other anticoagulants following with vascular surgery with plans for a venogram on November 17 presenting with increasing left arm symptoms. She feels like it swollen although he does not appear grossly edematous to me. She states even when she has had big clots in her arm it never swells up significantly. She feels this pressure pain sensation primarily in her mid forearm but there is no overlying skin changes readily apparent to me. I do not believe there is any arterial clot as she has good pulses distally with good cap refill and her pain is not severe. There is no traumatic injury or indication for x-rays at this time. She had labs yesterday that were within normal limits. PTT drawn from triage although of limited value given that she is on Lovenox not unfractionated heparin. Obtaining a left upper extremity ultrasound to evaluate her current clot burden and any progression from previous. Will reevaluate after results for disposition. See resident note for disposition details I personally saw and examined the patient. I reviewed the resident's note I personally saw the patient and performed a substantive portion of the visit including all aspects of the medical decision making. I agree with the resident's assessment and plan unless otherwise noted. I was present for the significant portion of the procedure(s). KWABENA LAI 11/06/24 0141 Normal [facility] PT panel Coag (PPP)on 2024 INR Coag (PPP) [Relative time] 1.1 {INR} Normal 0.9-1.3 [facility] Comment on above: Order Comment: Jose polanco Type: BLOOD SPECIMENOrdering Facility: [facility] Address: [address] [place] [address] Result Comment: Olinda min K Antagonist (VKA) Therapeutic Range: INR 2 to 3 (Target INR of 2.5) Note: For patients treated with VKA drugs, such as warfarin, the [place] [employer] 2012 Guideline recommends a therapeutic INR range of 2 to 3 (target INR of 2.5). This recommendation includes high-risk patients with antiphospholipid syndrome with previous arterial or venous thromboembolism, current-generation mechanical or bioprosthetic aortic heart valve replacement. Note: Patients with mechanical aortic valve replacement and additional risk factors for thromboembolic events (atrial fibrillation, previous thromboembolism, LV dysfunction, hypercoagulable conditions) or an older generation mechanical AVR (i.e., ball in-Cage) or any mechanical MVR should have a INR therapeutic range of 2.5 to 3.5 (target INR of 3). Haritha GH, et al. Chest 2012, 141:7S-47S Yari RA et al. [facility] 2017, 70: 252-289 Performed By: #### 3 4528-0, 30190-1 ####[facility] LABORATORYCLIA [id number] [place] [address] [place] PT Coag (PPP) [Time] 11.9 s Normal 9.7-13.0 [facility] Comment on above: Order Comment: Jose polanco Type: BLOOD SPECIMENOrdering Facility: [facility] Address: [address] [place] [address] Performed By: #### 3 4528-0, 74161-5 ####[facility] LABORATORYCLIA [id number] [place] [address] [place] aPTT PPPon 11-06-2024 aPTT Coag (PPP) [Time] 35.7 s High 23.0-32.4 [facility] Comment on above: Order Comment: Speci men Type: BLOOD SPECIMENOrdering Facility: [facility] Address: [address] [place] [address] Performed By: #### 3 4528-0, 69610-5 ####[facility] LABORATORYCLIA [id number] [place] [address] [facility] [place] CNPNon 11-05-2024 CNPN Normal [facility] ED NOTEon 11-05-2024 ED NOTE HNO ID: [id number] Author: BAYLEE DUMONT RN Service: Emergency Medicine Author Type: Registered Nurse Type: ED Notes Filed: 11/05/2024 22:58 Note Text: US @ Bedside [facility] ED NOTE HNO ID: [id number] Author: CATERINA REGALADO RN Service: ? Author Type: Registered Nurse Type: ED Notes Filed: 11/05/2024 22:42 Note Text: Bed: 20-ED Expected date: Expected time: Means of arrival: Comments: Triage when clean [facility] ED NOTE HNO ID: [id number] Author: HOLLIE ENCARNACION RN Service: ? Author Type: Registered Nurse Type: ED Notes Filed: 11/05/2024 22:22 Note Text: . Normal [facility] ED NOTE HNO ID: [id number] Author: HOLLIE ENCARNACION RN Service: ? Author Type: Registered Nurse Type: ED Notes Filed: 11/05/2024 20:35 Note Text: Ultrasound notified [facility] ED PROV NOTEon 11-05-2024 ED PROV NOTE HNO ID: [id number] Author: KWABENA LAI MD Service: Emergency Medicine Author Type: Resident Type: ED Provider Notes Filed: 11/06/2024 03:12 Note Text: Attestation signed by Kwabena Lai MD at 11/06/2024 3:12 AM Attending Note I evaluated the patient and personally participated in the dixon components. I agree with the resident's findings and plan as documented and have discussed the case and management of the patient's care with the resident. See my note from the same visit for any corrections or additions to resident's note. Signature: Kwabena Lai MD Date: 11/06/2024 Time: 3:12 AM ED Provider Note Patient Name: Matt Baum : 1990 SERVICE DATE: 11/05/24 History Patient presents with: Arm Pain: Pt to triage with c/o left arm pain and swelling. Pt states she has a history of blood clots and is currently on a Lovenox. Pt believes she missed a dose this week but cannot remember which day. Denies CP/SOB Presenting with concerns of left arm pain and swelling. She has past medical history of heterozygous prothrombin gene mutation with multiple blood clots in her bilateral upper extremities and left lower extremity. Patient currently on Lovenox however thinks she may have missed a dose few days ago. She was recently admitted to [facility] after feeling a pop in her left arm developing pain and was found to have a blood clot in her left arm. He is currently in the process of establishing care with vascular surgery for long-term management, however she does still see hematology. Patient states the pain has been present since she left the hospital, however has been worsening over the past several days. She now notices swelling which was not present before the last few days and contacted her vascular surgery team which told her to come to the emergency department. Patient does endorse a headache, however denies shortness of breath, chest pain, nausea, vomiting, or abdominal pain. 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 Patient son born with a cyst on the brain. It was surgically removed when he was 6 years old. 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 PE (pulmonary thromboembolism) (HCC) 05/10/2019 05/10/2019 Situational stress 01/31/2020 Thoracic outlet syndrome 10/25/2024 Vocal cord dysfunction Paradoxical VOCAL CORD DYSFUNCTION PAST SURGICAL HISTORY Procedure Laterality Date APPENDECTOMY TONSILLECTOMY AND ADENOIDECTOMY FAMILY HISTORY Problem Relation Age of Onset Psychiatry Mother BIPOLAR Thyroid Mother Stroke Father Alcohol abuse Father No Known Problems Sister No Known Problems Sister No Known Problems Sister No Known Problems Brother Arthritis Maternal Grandmother Heart Maternal Grandmother Osteoporosis Maternal Grandmother Stroke Maternal Grandmother other (Hypotension) Maternal Grandmother Heart Maternal Grandfather Hypertension Maternal Grandfather Alcohol/Drug Maternal Grandfather Psychiatry Maternal Grandfather BIPOLAR No Known Problems Paternal Grandmother No Known Problems Paternal Grandfather No Known Problems Daughter No Known Problems Daughter other (cyst on brain) Son No Known Problems Son No Ocular Disease No Family History Malig Hyperthermia No Family History Social History Tobacco Use Smoking status: Never Smokeless tobacco: Never Tobacco comments: No smoking in family Vaping Use Vaping status: Never Used Substance and Sexual Activity Alcohol use: Not Currently Drug use: No Sexual activity: Not on file Comment: not asked ALLERGIES Allergen Reactions Pereira Pepper Anaphylaxis, Other: See Comments Latex Anaphylaxis, Hives Amoxicillin Hives, Swelling Banana Swelling Latex Hives Verified by skin testing Nubain [Nalbuphine * Rash Avocado Itching Carrot Itching [place] And Derivati* Other: See Comments Kiwi Itching Hydroxyzine Other: See Comments Extreme fatigue Omeprazole Other: See Comments nausea Sertraline Other: See Comments Bruising, stopped by hematology 12/3022 was interacting with blood thinners Review of Systems Physical Exam Vitals [11/05/242027] BP Pulse Temp Temp src Resp SpO2 Weight Height 128/80 80 36.7 ?C (98.1 ?F) Oral 16 98 % 52.6 kg (116 lb) 1.6 m (5' 3) Physical Exam Diagnostic Testing ED Labs Ordered and Reviewed - No data to display Procedures ED Course / Clinical Impr (more content not included)... Normal [facility] ED Triage Noteon 11-05-2024 ED Triage Note HNO ID: [id number] Author: MEAGAN NAZARIO APRN.CNP Service: ? Author Type: Nurse Practitioner Type: ED Triage Notes Filed: 11/05/2024 20:34 Note Text: ED TRIAGE PROVIDER NOTE Patient Name: Matt Baum Service Date: 11/05/24 BRIEF HPI: This is a 33 year old female who presents to the ED with: blood clot hx concerned for clot to left arm. Denies trauma. BRIEF EXAM: NAD Awake and Alert Non labored breathing No focal neurological deficits No swelling left arm redness or warmth. Pulses sensation intact. INITIAL WORKUP AND DECISION MAKING: Orders Placed This Encounter US DVT UPPER LEFT SIGNATURE: Meagan Nazario APRN.CNP Normal [facility] US DVT UPPER LTon 11-05-2024 US DVT UPPER LT * * *Final Report* * * DATE OF EXAM: Nov 05 2024 11:42PM AKU 1003 - US DVT UPPER LT / PROCEDURE REASON: Arm deep vein thrombosis (DVT), new symptoms * * * * Physician Interpretation * * * * EXAMINATION: LEFT UPPER EXTREMITY DEEP VENOUS ULTRASOUND WITH DOPPLER IMAGING CLINICAL HISTORY: DVT. TECHNIQUE: Grayscale with compression maneuvers where accessible, color and spectral Doppler of the left internal jugular, subclavian, and axillary veins was performed. Grayscale with compression maneuvers of the left brachial, basilic and cephalic veins was also performed. The contralateral internal jugular and distal subclavian veins were imaged for comparison. Images were obtained and stored in a permanent archive. MQ: [id number]_1 COMPARISON: 10/22/2024. RESULT: LEFT UPPER EXTREMITY DEEP VEINS Internal Jugular vein: Abnormal, incomplete compression, partial flow present. Subclavian vein: Normal, spontaneous flow. Axillary vein: Normal compression, normal spontaneous flow. Brachial vein: Normal compression SUPERFICIAL VEINS Basilic vein: Normal compression. Cephalic vein: Normal compression.. Proximal and mid cephalic vein segments not identified. RIGHT UPPER EXTREMITY (FOR COMPARISON) DEEP VEINS Internal Jugular and Distal Subclavian veins: Normal compression, normal spontaneous flow. 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 Recanalization of LEFT subclavian vein and axillary vein. Negative study for superficial thrombophlebitis in the imaged segments of the left upper extremity. Limited evaluation of proximal and mid cephalic vein. Drug Safety Coordinator: PSCB Transcribe Date/Time: Nov 06 2024 1:31A Dictated by : CLEM FUENTES MD This examination was interpreted and the report reviewed and electronically signed by: CLEM FUENTES MD on Nov 06 2024 1:36AM EST [id number] Normal [facility] Basic metabolic 2000 panelon 11-04-2024 Anion gap [Moles/Vol] 10 mmol/L Normal 8-15 [facility] Comment on above: Order Comment: Speci men Type: BLOOD SPECIMENOrdering Facility: [facility] Address: [address] [place] [address] Performed By: #### 2 4321-2 ####[facility] [id number] [place] [address] [place] Calcium [Mass/Vol] 9.4 mg/dL Normal 8.5-10.2 [facility] Comment on above: Order Comment: Speci men Type: BLOOD SPECIMENOrdering Facility: [facility] Address: [address] [place] [address] Performed By: #### 2 4321-2 ####[facility] [id number] [place] [address] [place] Chloride [Moles/Vol] 102 mmol/L Normal 98-107 [facility] Comment on above: Order Comment: Speci men Type: BLOOD SPECIMENOrdering Facility: [facility] Address: [address] [place] [address] Performed By: #### 2 4321-2 ####[facility]IL[facility] HOSPITALLIA [id number] [place] [address] [place] CO2 [Moles/Vol] 29 mmol/L Normal 22-30 [facility] Comment on above: Order Comment: Speci men Type: BLOOD SPECIMENOrdering Facility: [facility] Address: [address] [place] [address] Performed By: #### 2 4321-2 ####[facility] [id number] [place] [address] [place] Creatinine [Mass/Vol] 0.70 mg/dL Normal 0.58-0.96 [facility] Comment on above: Order Comment: Speci men Type: BLOOD SPECIMENOrdering Facility: [facility] Address: [address] [place] [address] Performed By: #### 2 4321-2 ####[facility] [id number] [place] [address] [place] Creatinine and Glomerular filtration rate.predicted panel (S/P/Bld) 116 mL/min/1.73m??? Normal >=60 [facility] Comment on above: Order Comment: Speci men Type: BLOOD SPECIMENOrdering Facility: [facility] Address: [address] [place] [address] Result Comment: Valarie mated Glomerular Filtration Rate (eGFR) is calculated using the 2020 CKD-EPI creatinine equation. This equation utilizes serum creatinine, sex, and age as parameters. The creatinine assay has traceable calibration to isotope dilution-mass spectrometry. Refer to KDIGO guidelines for clinical interpretation. In patients with unstable renal function, e.g. those with acute kidney injury, the eGFR may not accurately reflect actual GFR. Performed By: #### 2 4321-2 ####[facility]ITALNCLIA [id number] [place] [address] [place] Glucose [Mass/Vol] 96 mg/dL Normal 74-99 [facility] Comment on above: Order Comment: Speci men Type: BLOOD SPECIMENOrdering Facility: [facility] Address: [address] [place], [place] [id number] Result Comment: The [place] Diabetes Association (ADA) provides guidance for cutoff values for fasting glucose and random glucose. The ADA defines fasting as no caloric intake for at least 8 hours. Fasting plasma glucose results between 100 to 125 mg/dL indicate increased risk for diabetes (prediabetes).Fasting plasma glucose results greater than or equal to 126 mg/dL meet the criteria for diagnosis of diabetes. In the absence of unequivocal hyperglycemia, results should be confirmed by repeat testing. In a patient with classic symptoms of hyperglycemia or hyperglycemic crisis, random plasma glucose results greater than or equal to 200 mg/dL meet the criteria for diagnosis of diabetes.Reference: Standards of Medical Care in Diabetes 2016, [place] Diabetes Association. Diabetes Care. 2016.39(Suppl 1). Performed By: #### 2 4321-2 ####[facility]ENTERWPARK NICOL[facility] HOSPITALA [id number] [place] [address] [place] Potassium [Moles/Vol] 4.2 mmol/L Normal 3.7-5.1 [facility] Comment on above: Order Comment: Reshmai men Type: BLOOD SPECIMENOrdering Facility: [facility] Address: [address] [place], [place] [address] Performed By: #### 2 4321-2 ####[facility] CENTERNydia [id number] [place] [address] [place] Sodium [Moles/Vol] 141 mmol/L Normal 136-144 [facility] Comment on above: Order Comment: Speci men Type: BLOOD SPECIMENOrdering Facility: [facility] Address: [address] [place], [place] [address] Performed By: #### 2 4321-2 ####[facility]ABILIT[facility] HOSPITALLIA [id number] [place] [address] [place] Urea nitrogen [Mass/Vol] 8 mg/dL Normal 7-21 [facility] Comment on above: Order Comment: Speci men Type: BLOOD SPECIMENOrdering Facility: [facility] Address: [address] [place] [address] Performed By: #### 2 4321-2 ####[facility] HOSPITALNCA [id number] [place] [address] [place] CBC W Auto Differential pane l (Bld)on 11-04-2024 Basophils (Bld) [#/Vol] 10*3/uL Normal <0.11 [facility] Comment on above: Order Comment: Speci men Type: BLOOD SPECIMENOrdering Facility: [facility] Address: [address] [place] [address] Performed By: #### 5 7021-8 ####[facility] [id number] [place] [address] [place] Basophils/100 WBC (Bld) 0.6 % Normal [facility] Comment on above: Order Comment: Speci men Type: BLOOD SPECIMENOrdering Facility: [facility] Address: [address] [place] [address] Performed By: #### 5 7021-8 ####[facility] [id number] [place] [address] [place] Differential cell count method Nom (Bld) Auto Normal [facility] Comment on above: Order Comment: Speci men Type: BLOOD SPECIMENOrdering Facility: [facility] Address: [address] [place] [address] Performed By: #### 5 7021-8 ####[facility]ENTERA [id number] [place] [address] [place] Eosinophils (Bld) [#/Vol] 0.05 10*3/uL Normal <0.46 [facility] Comment on above: Order Comment: Speci men Type: BLOOD SPECIMENOrdering Facility: [facility] Address: [address] [place], [place] [address] Performed By: #### 5 7021-8 ####[facility] MILLWNCLIA [id number] [place] [address] [place] Eosinophils/100 WBC (Bld) 1.6 % Normal [facility] Comment on above: Order Comment: Speci men Type: BLOOD SPECIMENOrdering Facility: [facility] Address: [address] [place] [address] Performed By: #### 5 7021-8 ####[facility] HOSPITALIBRAHIMALIA [id number] [place] [address] [place] Erythrocyte distribution width (RBC) [Ratio] 12.7 % Normal 11.5-15.0 [facility] Comment on above: Order Comment: Speci men Type: BLOOD SPECIMENOrdering Facility: [facility] Address: [address] [place] [address] Performed By: #### 5 7021-8 ####[facility]IL[facility] HOSPITALLIA [id number] [place] [address] [place] Hematocrit (Bld) [Volume fraction] 41.9 % Normal 36.0-46.0 [facility] Comment on above: Order Comment: Speci men Type: BLOOD SPECIMENOrdering Facility: [facility] Address: [address] [place] [address] Performed By: #### 5 7021-8 ####[facility]IL[facility] HOSPITALLIA [id number] [place] [address] [place] Hemoglobin (Bld) [Mass/Vol] 13.8 g/dL Normal 11.5-15.5 [facility] Comment on above: Order Comment: Speci men Type: BLOOD SPECIMENOrdering Facility: [facility] Address: [address] [place] [address] Performed By: #### 5 7021-8 ####[facility] HOSPITALNCLIA [id number] [place] [address] [place] Immature granulocytes (Bld) [#/Vol] 10*3/uL Normal <0.10 [facility] Comment on above: Order Comment: Speci men Type: BLOOD SPECIMENOrdering Facility: [facility] Address: [address] [place] [address] Performed By: #### 5 7021-8 ####[facility] HOSPITALLIA [id number] [place] [address] [place] Immature granulocytes/100 WBC (Bld) 0.3 % Normal [facility] Comment on above: Order Comment: Speci men Type: BLOOD SPECIMENOrdering Facility: [facility] Address: [address] [place] [address] Performed By: #### 5 7021-8 ####[facility] HOSPITALNCLI [id number] [place] [address] [place] Lymphocytes (Bld) [#/Vol] 1.43 10*3/uL Normal 1.00-4.00 [facility] Comment on above: Order Comment: Speci men Type: BLOOD SPECIMENOrdering Facility: [facility] Address: [address] [place] [address] Performed By: #### 5 7021-8 ####[facility]ENTERA [id number] [place] [address] [place] Lymphocytes/100 WBC (Bld) 46.1 % Normal [facility] Comment on above: Order Comment: Speci men Type: BLOOD SPECIMENOrdering Facility: [facility] Address: [address] [place] [address] Performed By: #### 5 7021-8 ####[facility] HOSPITALNCLI [id number] [place] [address] [place] MCH (RBC) [Entitic mass] 28.5 pg Normal 26.0-34.0 [facility] Comment on above: Order Comment: Speci men Type: BLOOD SPECIMENOrdering Facility: [facility] Address: [address] [place] [address] Performed By: #### 5 7021-8 ####[facility] ALEXUS [id number] [place] [address] [place] MCHC (RBC) [Mass/Vol] 32.9 g/dL Normal 30.5-36.0 [facility] Comment on above: Order Comment: Speci men Type: BLOOD SPECIMENOrdering Facility: [facility] Address: [address] [place], [place] [address] Performed By: #### 5 7021-8 ####[facility] HOSPITALREGULO [id number] [place] [address] [place] MCV (RBC) [Entitic vol] 86.4 fL Normal 80.0-100.0 [facility] Comment on above: Order Comment: Speci men Type: BLOOD SPECIMENOrdering Facility: [facility] Address: [address] [place] [address] Performed By: #### 5 7021-8 ####[facility] HOSPITALREGULO [id number] [place] [address] [place] Monocytes (Bld) [#/Vol] 0.25 10*3/uL Normal <0.87 [facility] Comment on above: Order Comment: Speci men Type: BLOOD SPECIMENOrdering Facility: [facility] Address: [address] [place] [address] Performed By: #### 5 7021-8 ####[facility]PITALNCLIA [id number] [place] [address] [place] Monocytes/100 WBC (Bld) 8.1 % Normal [facility] Comment on above: Order Comment: Speci men Type: BLOOD SPECIMENOrdering Facility: [facility] Address: [address] [place] [address] Performed By: #### 5 7021-8 ####[facility] MILLTOWNCLIA [id number] [place] [address] [place] Neutrophils (Bld) [#/Vol] 1.34 10*3/uL Low 1.45-7.50 [facility] Comment on above: Order Comment: Speci men Type: BLOOD SPECIMENOrdering Facility: [facility] Address: [address] [place] [address] Performed By: #### 5 7021-8 ####[facility] HOSPITALLIA [id number] [place] [address] [place] Neutrophils/100 WBC (Bld) 43.3 % Normal [facility] Comment on above: Order Comment: Speci men Type: BLOOD SPECIMENOrdering Facility: [facility] Address: [address] [place] [address] Performed By: #### 5 7021-8 ####[facility] HOSPITALLIA [id number] [place] [address] [place] Nucleated RBC (Bld) [#/Vol] 10*3/uL Normal <0.01 [facility] Comment on above: Order Comment: Speci men Type: BLOOD SPECIMENOrdering Facility: [facility] Address: [address] [place] [address] Performed By: #### 5 7021-8 ####[facility] HOSPITALLIA [id number] [place] [address] [place] Nucleated RBC/100 WBC (Bld) [Ratio] 0.0 /100 WBC Normal [facility] Comment on above: Order Comment: Speci men Type: BLOOD SPECIMENOrdering Facility: [facility] Address: [address] [place] [address] Performed By: #### 5 7021-8 ####[facility]PITALNCLIA [id number] [place] [address] [place] Platelet mean volume (Bld) [Entitic vol] 10.7 fL Normal 9.0-12.7 [facility] Comment on above: Order Comment: Speci men Type: BLOOD SPECIMENOrdering Facility: [facility] Address: [address] [place] [address] Performed By: #### 5 7021-8 ####[facility] MANASJgNCLIA [id number] [place] [address] [place] Platelets (Bld) [#/Vol] 162 10*3/uL Normal 150-400 [facility] Comment on above: Order Comment: Speci men Type: BLOOD SPECIMENOrdering Facility: [facility] Address: [address] [place] [address] Performed By: #### 5 7021-8 ####[facility]ITALNCLIA [id number] [place] [address] [place] RBC (Bld) [#/Vol] 4.85 10*6/uL Normal 3.90-5.20 [facility] Comment on above: Order Comment: Speci men Type: BLOOD SPECIMENOrdering Facility: [facility] Address: [address] [place] [address] Performed By: #### 5 7021-8 ####[facility]ITALNCLIA [id number] [place] [address] [place] WBC (Bld) [#/Vol] 3.10 10*3/uL Low 3.70-11.00 [facility] Comment on above: Order Comment: Speci men Type: BLOOD SPECIMENOrdering Facility: [facility] Address: [address] [place] [address] Performed By: #### 5 7021-8 ####[facility]ITALNCLIA [id number] [place] [address] [place] HISTORY PHYSICALon 5 HISTORY PHYSICAL Normal [facility] TYPE AND SCREEN,30 DAYon ABO O Normal [facility] Comment on above: Order Comment: Speci men Type: BLOOD SPECIMENOrdering Facility: [facility] Address: [address] [place] [address] Performed By: #### T SCR30 ####[facility] BLOOD BANKIA [id number] [place] [address] [place] Rh Nom (Bld) Positive Normal [facility] Comment on above: Order Comment: Speci men Type: BLOOD SPECIMENOrdering Facility: [facility] Address: [address] [place] [address] Performed By: #### T SCR30 ####[facility] BLOOD [facility] [id number] [place] [address] [place] CNTHERAPYon 11-03-2024 CNTHERAPY Normal [facility] THERAPY NTon 11-03-2024 THERAPY NT Normal [facility] CNPNon 11-01-2024 CNPN Normal [facility] CNOVSPon 10-31-2024 CNOVSP Normal [facility] CNPNon 10-31-2024 CNPN Normal [facility] LMWH PPP-aCncon 10-31-2024 LMW Heparin Qn (PPP) 0.84 IU/mL High <0.10 [facility] Comment on above: Order Comment: Speci men Type: BLOOD SPECIMENOrdering Facility: [facility] Address: [address] [place] [address] Result Comment: Ther apeutic Range: 0.5 to 1.1 IU/mL ([facility] 1998: 122:799 to 807). Performed By: #### 3 2684-3 ####[facility] LABCLIA [id number] [place] [address] [place] CNCOon 10-25-2024 CNCO Letter Text Normal [facility] CNOVon 10-25-2024 CNOV Normal [facility] CNPNon 10-21-2024 CNPN Normal [facility] CNPNon 10-20-2024 CNPN Normal [facility] CNPNon 10-18-2024 CNPN Normal [facility] CNOVon 10-17-2024 CNOV Normal [facility] PVR THORACIC OUTLET SARA VAS LABon 10-17-2024 Non-Invasive Vascular Laboratory [facility] Upper Extremity Arterial Physiology Study Bilateral/Complete Date of service/time: 10/17/2024 11:22:30 AM Name: MRS. MATT BAUM Date of : 1990 Age: 33 years Gender: F Clinical Indication Numbness of arms or digits and History of left arm DVT. TECHNIQUE -------- An arterial physiological examination was performed, including measurement of blood pressures using continuous wave Doppler and recording of plethysmographic with or without Doppler waveforms at the below-mentioned limb segments. THORACIC OUTLET MANEUVERS Right Pressures Sitting position, arms down: 110 mmHg. Arm positioned at 45 degree angle: 105 mmHg. Arm abducted and externally rotated at 90 degree angle: 98 mmHg. Arm abducted and externally rotated at 120 degree angle: 84 mmHg. position: 85 mmHg. Right Waveforms Sitting position, arms down: Normal. Arm positioned at 45 degree angle: Normal. Arm abducted and externally rotated at 90 degree angle: Normal. Arm abducted and externally rotated at 120 degree angle: Normal. position: Normal. Left Pressures Sitting position, arms down: 104 mmHg. Arm positioned at 45 degree angle: 96 mmHg. Arm abducted and externally rotated at 90 degree angle: 96 mmHg. Arm abducted and externally rotated at 120 degree angle: 91 mmHg. position: 72 mmHg. Left Waveforms Sitting position, arms down: Normal. Arm positioned at 45 degree angle: Normal. Arm abducted and externally rotated at 90 degree angle: Normal. Arm abducted and externally rotated at 120 degree angle: Normal. position: Moderately dampened. IMPRESSION RIGHT SIDE Negative for arterial compression with thoracic outlet maneuvers in the right arm. LEFT SIDE Positive for arterial compression with thoracic outlet maneuvers in the left arm. Technologist: Margarita Jackson T Ordering physician: NATA VALLE Interpreting physician: CLEMENTE Trujillo MD Final See Link below for Image [facility] PVR THORACIC OUTLET SARA VAS LAB Normal [facility] ARM VEIN DVT UNL VAS LABo n 10-17-2024 US ARM VEIN DVT UNL VAS LAB Normal [facility] Upper extremity veinson 0 10-17-2024 Non-Invasive Vascular Laboratory [facility] Upper Extremity Venous Duplex Unilateral - Left Date of service/time: 10/17/2024 11:03:07 AM Name: MRS. MATT BAUM Date: 1990 Age: 33 years Gender: F Clinical Indication Previous deep vein thrombosis. TECHNIQUE -------- A venous duplex ultrasound examination was performed, including grayscale imaging with compression maneuvers and color Doppler and spectral Doppler examination with augmentation maneuvers and response to respiration of the below mentioned veins. FINDINGS -------- LEFT SIDE Internal jugular vein Doppler: normal flow. Compression: abnormal. Subclavian vein Doppler: normal flow. Axillary vein Doppler: normal flow. Compression: normal. Brachial vein Doppler: normal flow. Compression: normal. Basilic vein Compression: normal. Cephalic vein Compression: normal. IMPRESSION Compared to prior study of 10/14/2024, No significant change. Left subclavian chronic thrombus noted at proximal vessel on today's exam. RIGHT SIDE - DEEP VEINS Contralateral subclavian vein doppler lost due to technical error. LEFT SIDE - DEEP VEINS Chronic post-thrombotic change in the internal jugular vein at proximal. chronic thrombus versus fibrin sheath Chronic post-thrombotic change in the subclavian vein at proximal. Unable to compress vein due to clavicle. No evidence of subclavian venous thoracic outlet with maneuvers. Technologist: Margarita Jackson RVT Ordering physician: NATA VALLE Interpreting physician: CLEMENTE Trujillo MD Final See Link below for Image [facility] Basic metabolic 2000 panelon 10-14-2024 Anion gap [Moles/Vol] 8 mmol/L Normal 8-15 [facility] Comment on above: Order Comment: Speci men Type: BLOOD SPECIMENOrdering Facility: [facility] Address: [address] [place] [address] Performed By: #### 2 4321-2, ####[facility]ORATORYCLIA [id number] [place] [address] [place] Calcium [Mass/Vol] 9.1 mg/dL Normal 8.5-10.2 [facility] Comment on above: Order Comment: Speci men Type: BLOOD SPECIMENOrdering Facility: [facility] Address: [address] [place] [address] Performed By: #### 2 4321-2, ####[facility] LABORATORYCLIA [id number] [place] [address] [place] Chloride [Moles/Vol] 105 mmol/L Normal 98-107 [facility] Comment on above: Order Comment: Speci men Type: BLOOD SPECIMENOrdering Facility: [facility] Address: [address] [place] [address] Performed By: #### 2 4321-2, ####[facility] LABORATORYCLIA [id number] [place] [address] [place] CO2 [Moles/Vol] 26 mmol/L Normal 22-30 [facility] Comment on above: Order Comment: Speci men Type: BLOOD SPECIMENOrdering Facility: [facility] Address: [address] [place] [id number] Performed By: #### 2 4321-2, ####[facility] LABORATORYCLIA [id number] [place] [address] [place] Creatinine [Mass/Vol] 0.77 mg/dL Normal 0.58-0.96 [facility] Comment on above: Order Comment: Speci men Type: BLOOD SPECIMENOrdering Facility: [facility] Address: [address] [place] [address] Performed By: #### 2 4321-2, ####[facility]ORATORYCLIA [id number] [place] [address] [place] Creatinine and Glomerular filtration rate.predicted panel (S/P/Bld) 103 mL/min/1.73m??? Normal >=60 [facility] Comment on above: Order Comment: Jose polanco Type: BLOOD SPECIMENOrdering Facility: [facility] Address: [address] [place] [address] Result Comment: [facility] Glomerular Filtration Rate (eGFR) is calculated using the 2020 CKD-EPI creatinine equation. This equation utilizes serum creatinine, sex, and age as parameters. The creatinine assay has traceable calibration to isotope dilution-mass spectrometry. Refer to KDIGO guidelines for clinical interpretation. In patients with unstable renal function, e.g. those with acute kidney injury, the eGFR may not accurately reflect actual GFR. Performed By: #### 2 4321-, ####[facility] LABORATORYCLIA [id number] [place] [id number] [place] Glucose [Mass/Vol] 95 mg/dL Normal 74-99 [facility] Comment on above: Order Comment: Jose polanco Type: BLOOD SPECIMENOrdering Facility: [facility] Address: [address] [place] [address] Result Comment: The [place] Diabetes Association (ADA) provides guidance for cutoff values for fasting glucose and random glucose. The ADA defines fasting as no caloric intake for at least 8 hours. Fasting plasma glucose results between 100 to 125 mg/dL indicate increased risk for diabetes (prediabetes). Fasting plasma glucose results greater than or equal to 126 mg/dL meet the criteria for diagnosis of diabetes. In the absence of unequivocal hyperglycemia, results should be confirmed by repeat testing. In a patient with classic symptoms of hyperglycemia or hyperglycemic crisis, random plasma glucose results greater than or equal to 200 mg/dL meet the criteria for diagnosis of diabetes. Reference: Standards of Medical Care in Diabetes 2016, [place] Diabetes Association. Diabetes Care. 2016.39(Suppl 1). Performed By: #### 2 4321-2, ####[facility] LABORATORYCLIA [id number] [place] [address] [place] Potassium [Moles/Vol] 4.1 mmol/L Normal 3.7-5.1 [facility] Comment on above: Order Comment: Speci men Type: BLOOD SPECIMENOrdering Facility: [facility] Address: [address] [place] [address] Performed By: #### 2 4321-2, ####[facility] LABORATORYCLIA [id number] [place] [address] [place] Sodium [Moles/Vol] 139 mmol/L Normal 136-144 [facility] Comment on above: Order Comment: Speci men Type: BLOOD SPECIMENOrdering Facility: [facility] Address: [address] [place] [address] Performed By: #### 2 4321-2, ####[facility] LABORATORYCLIA [id number] [address] [place] Urea nitrogen [Mass/Vol] 9 mg/dL Normal 7-21 [facility] Comment on above: Order Comment: Speci men Type: BLOOD SPECIMENOrdering Facility: [facility] Address: [address] [place] [address] Performed By: #### 2 4321-2, ####[facility] LABORATORYCLIA [id number] [place] [address] [place] CBC panel Auto (Bld)on 10-14 Erythrocyte distribution width (RBC) [Ratio] 12.6 % Normal 11.5-15.0 [facility] Comment on above: Order Comment: Speci men Type: BLOOD SPECIMENOrdering Facility: [facility] Address: [address] [place] [address] Performed By: #### 5 8410-2 ####[facility] LABORATORYCLIA [id number] [place] [id number] [place] Hematocrit (Bld) [Volume fraction] 41.6 % Normal 36.0-46.0 [facility] Comment on above: Order Comment: Speci men Type: BLOOD SPECIMENOrdering Facility: [facility] Address: [address] [place] [address] Performed By: #### 5 8410-2 ####[facility] LABORATORYCLIA [id number] [address] Hemoglobin (Bld) [Mass/Vol] 13.6 g/dL Normal 11.5-15.5 [facility] Comment on above: Order Comment: Speci men Type: BLOOD SPECIMENOrdering Facility: [facility] Address: [address] [place] [address] Performed By: #### 5 8410-2 ####[facility] LABORATORYCLIA [id number] [address] MCH (RBC) [Entitic mass] 29.0 pg Normal 26.0-34.0 [facility] Comment on above: Order Comment: Speci men Type: BLOOD SPECIMENOrdering Facility: [facility] Address: [address] [place] [address] Performed By: #### 5 8410-2 ####[facility] LABORATORYCLIA [id number] [address] MCHC (RBC) [Mass/Vol] 32.7 g/dL Normal 30.5-36.0 [facility] Comment on above: Order Comment: Speci men Type: BLOOD SPECIMENOrdering Facility: [facility] Address: [address] [place] [address] Performed By: #### 5 8410-2 ####[facility] LABORATORYCLIA [id number] [address] MCV (RBC) [Entitic vol] 88.7 fL Normal 80.0-100.0 [facility] Comment on above: Order Comment: Speci men Type: BLOOD SPECIMENOrdering Facility: [facility] Address: [address] [place] [address] Performed By: #### 5 8410-2 ####[facility] LABORATORYCLIA [id number] [address] Nucleated RBC (Bld) [#/Vol] 10*3/uL Normal <0.01 [facility] Comment on above: Order Comment: Speci men Type: BLOOD SPECIMENOrdering Facility: [facility] Address: [address] [place] [address] Performed By: #### 5 8410-2 ####[facility] LABORATORYCLIA [id number] [address] Platelet mean volume (Bld) [Entitic vol] 10.7 fL Normal 9.0-12.7 [facility] Comment on above: Order Comment: Speci men Type: BLOOD SPECIMENOrdering Facility: [facility] Address: [address] [place] [address] Performed By: #### 5 8410-2 ####[facility] LABORATORYCLIA [id number] [address] [place] Platelets (Bld) [#/Vol] 161 10*3/uL Normal 150-400 [facility] Comment on above: Order Comment: Speci men Type: BLOOD SPECIMENOrdering Facility: [facility] Address: [address] [place] [address] Performed By: #### 5 8410-2 ####[facility] LABORATORYCLIA [id number] [address] RBC (Bld) [#/Vol] 4.69 10*6/uL Normal 3.90-5.20 [facility] Comment on above: Order Comment: Speci men Type: BLOOD SPECIMENOrdering Facility: [facility] Address: [address] [place] [address] Performed By: #### 5 8410-2 ####[facility] LABORATORYCLIA [id number] [address] WBC (Bld) [#/Vol] 4.05 10*3/uL Normal 3.70-11.00 [facility] Comment on above: Order Comment: Speci men Type: BLOOD SPECIMENOrdering Facility: [facility] Address: [address] [place] [address] Performed By: #### 5 8410-2 ####[facility] LABORATORYCLIA [id number] [address] CNDSon 10-14-2024 CNDS HNO ID: [id number] Author: JETHRO WADDELL MD Service: Hospital Medicine Author Type: Physician Type: Discharge Summary Filed: 10/14/2024 17:28 Note Text: DISCHARGE SUMMARY PATIENT NAME: Matt Baum ADMISSION DATE: 10/12/2024 DISCHARGE DATE: 10/14/2024 ATTENDING PHYSICIAN: Jethro Waddell MD Code Status: Full Code Highest Readmission Risk Score: 11 The 30 day readmissions risk score is derived from an internally validated risk model which evaluates patient level characteristics, utilization history, medication orders and lab results up until the day of discharge. Patients with a score of 40 or above are considered highest risk for readmission. Specific patient level drivers will be listed at the bottom of the summary. 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 * HOSPITAL COURSE: Ms. 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 She presents with her mom, Lise. She has a known DVT in her left upper extremity with Factor II deficiency for which she has been on Lovenox after failure of DOAC about 4 weeks ago. She follows with Dr. Quarles as an outpatient. She noticed a pop in her LUE with dizziness and SOB; an ultrasound demonstrated concern for propagation of her left upper extremity DVT. Her case was discussed with Hematology and Vascular Surgery, as well as Dr. Valle downtown. Her clot was thought instead to be chronic. She will discharge back on lovenox shots, and a follow up request was placed to Dr. Valle in Vascular Medicine. She has some floaters in her vision, and a head CT was performed which was negative. She is discharging home. We scheduled an appointment with Dr. Valle in Vascular Medicine on Thursday. Transitions of Care Critical Issues: SPECIALIST FOLLOW-UP: Vascular Medicine LABS AND PROCEDURES PENDING AT DISCHARGE: No pending results. PATIENT CONDITION AT DISCHARGE: Stable DISCHARGE DISPOSITION: Home with Self Care Discharge Physical Exam: VITAL SIGNS: BP 105/65 Pulse 72 Temp 36.5 ?C (97.7 ?F) Resp 20 Ht 161.3 cm (5' 3.5) Wt 54 kg (119 lb 0.8 oz) LMP 09/29/2024 (Approximate) SpO2 100% BMI 20.76 kg/m? GENERAL: Alert, no distress, cooperative SKIN: Skin color, texture, turgor normal. No rashes or lesions. HEAD/SINUSES: No significant findings EYES: EOMI LUNGS: Lungs clear to auscultation, Good diaphragmatic excursion CARDIAC: Normal S1 and S2; no rubs, murmurs, or gallops ABDOMEN: Abdomen soft, non-tender, BS normal, No masses or organomegaly EXTREMITIES: Normal exam of the extremities DIET: Resume pre-hospital diet ACTIVITY: Resume pre-hospital activity ALLERGIES Allergen Reactions Pereira Pepper Anaphylaxis, Other: See Comments Latex Anaphylaxis, Hives Amoxicillin Hives, Swelling Banana Swelling Latex Hives Verified by skin testing Nubain [Nalbuphine * Rash Avocado Itching Carrot Itching [place] And Derivati* Other: See Comments Kiwi Itching Hydroxyzine Other: See Comments Extreme fatigue Omeprazole Other: See Comments nausea Sertraline Other: See Comments Bruising, stopped by hematology 12/3022 DISCHARGE MEDICATION: Medication List CONTINUE taking these medications albuterol HFA 90 mcg/actuation inhaler Commonly known as: PROVENTIL HFA, VENTOLIN HFA Inhale 2 Puffs as instructed every 4 hours as needed for wheezing/shortness of breath. enoxaparin 60 mg/0.6 mL Syrg Commonly known as: LOVENOX Inject 0.55 mL subcutaneously two times a day. levothyroxine 88 mcg tablet Commonly known as: LevoxyL Take 1 tablet by mouth once daily. Take on empty stomach. For Thyroid potassium chloride 20 mEq Tber Take 1 tablet by mouth once daily. STOP taking these medications apixaban 5 mg tab(s) Commonly known as: ELIQUIS FUTURE APPOINTMENTS: Follow Up with PCP: Ravinder Babb MD The patient's risk for 30-day readmission is determined using the following contributing factors: Pt variables contributing to increased readmission risk: 11 Active Medication Orders 9.2 First Resulted Calcium During Admission (more content not included)... Normal [facility] 10-14-2024 [facility] Telephone (PAULINE) MATT BAUM ([id number]) 1990 F Date Time Provider Department 10/14/24 JETHRO WADDELL During your visit today, we recorded the following information about you: Jethro Waddell MD 10/14/2024 10:01 AM Signed Telephone visit created to have patient go downstairs to vascular lab for improved images. Allergies As of Date: 10/14/2024 Noted Allergy Reaction PEREIRA PEPPER 02/24/2022 10 - Anaphylaxis 14 - Other: See Comments LATEX 02/24/2022 10 - Anaphylaxis 4 - Hives AMOXICILLIN 02/04/2006 4 - Hives 7 - Swelling BANANA 02/24/2022 7 - Swelling LATEX 09/15/2005 4 - Hives Comments: Verified by skin testing NUBAIN (NALBUPHINE HCL) 11/25/2011 2 - Rash AVOCADO 01/06/2024 9 - Itching CARROT 01/06/2024 9 - Itching CITRUS AND DERIVATIVES 02/24/2022 14 - Other: See Comments KIWI 01/06/2024 9 - Itching HYDROXYZINE 01/31/2020 14 - Other: See Comments Comments: Extreme fatigue OMEPRAZOLE 01/31/2020 14 - Other: See Comments Comments: nausea SERTRALINE 04/20/2023 14 - Other: See Comments Comments: Bruising, stopped by hematology 12/3022 Date Reviewed: 10/14/2024 Reviewed by: Tony Liu, ARIEL - Fully Assessed Primary Visit Diagnosis:Chronic deep vein thrombosis (DVT) of other vein of upper extremity, unspecified laterality (HCC) [I82.729] Order(s):US ARM VEIN DVT UNL VAS LAB [[id number]] Order #: [id number]: 1 FUTURE Prescriptions as of 10/14/2024 - levothyroxine (LEVOXYL) 88 mcg tablet Take 1 tablet by mouth once daily. Take on empty stomach. For Thyroid - enoxaparin (LOVENOX) 60 mg/0.6 mL syrg Inject 0.55 mL subcutaneously two times a day. - potassium chloride 20 mEq TbER Take 1 tablet by mouth once daily. - apixaban (ELIQUIS) 5 mg tab(s) Take 1 tablet by mouth two times a day. - albuterol HFA (PROVENTIL HFA, VENTOLIN HFA) 90 mcg/actuation inhaler Inhale 2 Puffs as instructed every 4 hours as needed for wheezing/shortness of breath. Facility-Administered Medications as of 10/14/2024 - heparin iv infusion 25,000 units in NaCl 0.45% 250 mL STANDARD NOMOGRAM - heparin RATE CHANGE bolus 1,000-10,000 Units for subtherapeutic PTTAC results - albuterol HFA 90 mcg/actuation 2 Puff (PROVENTIL HFA, VENTOLIN HFA) - levothyroxine 88 mcg tab(s) (SYNTHROID) - potassium chloride ER 20 mEq tab(s) (KLOR-CON) - NaCl 0.9% iv flush bag - ondansetron orally disintegrating 4 mg tab(s) (ZOFRAN ODT) - ondansetron (PF) 4 mg injection (ZOFRAN) - acetaminophen 650 mg tab(s) (TYLENOL) - warfarin dose per INR - Call physician daily for dose - iv contrast (radiology procedure) Meds Comments as of 11/08/2009: All medications have been reviewed today/July 12, 2007 Pat Torres Lpn All medications reviewed today/November 08, 2009 Nata Small Rn Problem List As Of Date 10/14/2024 Noted Resolved Supervision of normal first [Z34.00] 11/08/2009 02/24/2012 Abdominal pain, left lower quadrant [R10.32] 01/10/2010 02/24/2012 Supervision of normal [Z34.90] 02/24/2012 01/28/2016 GBS (group B streptococcus) UTI complicating pr*02/24/2012 02/07/2014 Fundal height low for dates [O26.849] 07/12/2012 02/07/2014 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] 02/07/2014 01/28/2016 History of stomach ulcers [Z87.11] 02/07/2014 07/04/2014 Nausea/vomiting in [O21.9] 02/07/2014 01/28/2016 Group B streptococcal infection in child of eli*02/07/2014 01/28/2016 Hx maternal GBS (group B streptococcus) affecte*01/28/2016 Post thyroiditis [O90.5] 06/15/2017 09/24/2018 Acquired hypothyroidism [E03.9] 10/21/2017 TRUDI (generalized anxiety disorder) [F41.1] 07/26/2018 Hypokalemia [E87.6] 09/24/2018 PE (pulmonary thromboembolism) (HCC) [I26.99] 05/10/2019 Jovel's cyst, left [M71.22] 05/10/2019 Epigastric pain [R10.13] 11/30/2019 04/09/2022 Biliary dyskinesia [K82.8] 12/08/2019 04/09/2022 Situational stress [F43.9] 01/31/2020 Unplanned [Z34.90] 08/26/2021 04/09/2022 Family history of defect [Z82.79] 08/26/2021 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] 09/13/2021 Anemia during in first trimester [O99*10/16/2021 04/09/2022 Well adult exam [Z00.00] 11/13/2021 Encounter for screening for diabetes mellitus [*11/13/2021 04/09/2022 UTI (urinary tract infection) in , ant*11/19/2021 04/09/2022 GBS bacteriuria [R82.71] 01/09/2022 Anemia during in third trimester [O99*02/07/2022 Benign gestational thrombocytopenia in third tr*02/07/2022 04/09/2022 Iron deficiency anemia secondary to inadequate *02/14/2022 Iron deficiency anemia during [O99.01*02/14/2022 Iron malabsorption [K90.9] 02/14/2022 Uterine contractions [O47.9] 04/08/2022 04/09/2022 No leakage of amniotic fluid into vagina [Z03.7*04/08/2022 04/09/2022 Intact amniotic membranes during in t*04/09/2022 04/09/2022 Current use of assisted 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 [Z79.0*04/09/2022 Indica (more content not included)... [facility] CONSULTon 10-14-2024 CONSULT HNO ID: [id number] Author: SCOTTIE RAI MD Service: Vascular Surgery Author Type: Physician Type: Consults Filed: 10/14/2024 15:49 Note Text: [facility] VASCULAR SURGERY INITIAL CONSULT Service Date: 10/14/2024 Admit Date: 10/12/2024 Service Time: 3:18 PM LOS: 1 day(s) Requesting Provider: Jethro De Dios MD - , [facility] Subjective Chief Complaint: Left upper extremity DVT HPI: Matt Baum is a 33 year old female seen in consultation for an opinion regarding management of the above stated chief complaint. 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 During her workup she underwent a CTA which ruled out a PE as well as a left upper extremity DVT ultrasound which showed left IJ, subclavian, axillary vein thrombus. She was started on heparin and admitted to the hospital for further management. Pertinent medical history is significant for: PE, hypothyroidism, factor II deficiency, recurrent upper extremity DVT?. Patient reports she was first diagnosed with left lower extremity DVT in 2018 although, I am unable to find the imaging documentation for this encounter. When she also experienced a pulmonary embolism. In May 2024, underwent a left upper extremity study that was positive for acute DVT of the left IJ, subclavian and axillary veins. She was then placed on blood thinners. She denies any associated arm swelling or pain at this time or prior to hospitalization. She denies any history of activity requiring recurrent or repetitive over the head arm movements. 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 Patient son born with a cyst on the brain. It was surgically removed when he was 6 years old. 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 PE (pulmonary thromboembolism) (HCC) 05/10/2019 05/10/2019 Situational stress 01/31/2020 Vocal cord dysfunction Paradoxical VOCAL CORD DYSFUNCTION PAST SURGICAL HISTORY Procedure Laterality Date APPENDECTOMY TONSILLECTOMY AND ADENOIDECTOMY FAMILY HISTORY Problem Relation Age of Onset Stroke Father Alcohol abuse Father Psychiatry Mother BIPOLAR Thyroid Mother No Known Problems Sister No Known Problems Sister No Known Problems Sister No Known Problems Brother Arthritis Maternal Grandmother Heart Maternal Grandmother Osteoporosis Maternal Grandmother Stroke Maternal Grandmother other (Hypotension) Maternal Grandmother Heart Maternal Grandfather Hypertension Maternal Grandfather Alcohol/Drug Maternal Grandfather Psychiatry Maternal Grandfather BIPOLAR No Known Problems Paternal Grandmother No Known Problems Paternal Grandfather No Known Problems Daughter No Known Problems Daughter other (cyst on brain) Son No Known Problems Son No Ocular Disease No Family History Social History Tobacco Use Smoking status: Never Smokeless tobacco: Never Tobacco comments: No smoking in family Vaping Use Vaping status: Never Used Substance Use Topics Alcohol use: Not Currently Drug use: No No current facility-administered medications on file prior to encounter. Current Outpatient Medications on File Prior to Encounter Medication Sig levothyroxine (LEVOXYL) 88 mcg tablet Take 1 tablet by mouth once daily. Take on empty stomach. For Thyroid enoxaparin (LOVENOX) 60 mg/0.6 mL syrg Inject 0.55 mL subcutaneously two times a day. potassium chloride 20 mEq TbER Take 1 tablet by mouth once daily. apixaban (ELIQUIS) 5 mg tab(s) Take 1 tablet by mouth two times a day. (Patient not taking: Reported on 09/19/2024) albuterol HFA (PROVENTIL HFA, VENTOLIN HFA) 90 mcg/actuation inhaler Inhale 2 Puffs as instructed every 4 hours as needed for wheezing/shortness of breath. Current Facility-Administered Medications Medication Dose Route Frequency iv contrast (radiology procedure) INTRAVENOUS DIRECTED PRN heparin iv infusion 25,000 units in NaCl 0.45% 250 mL STANDARD NOMOGRAM 0-3,000 Units/hr INTRAVENOUS CONTINUOUS And heparin RATE CHANGE bolus 1,000-10,000 Units for subtherapeutic PTTAC results 1,000-10,000 Units INTRAVENOUS PRN albuterol HFA 90 mcg/actuation 2 Puff (PROVENTIL HFA, VENTOLIN HFA) 2 Puff INHALATION q 4 H PRN levothyroxine 88 mcg tab(s) (SYNTHROID) 88 mcg ORAL DAILY potassium chloride ER 20 mEq tab(s) (KLOR-CON) 20 mEq ORAL DAILY NaCl 0.9% iv flush bag 20 mL INTRAVENOUS PRN ondansetron orally disintegrating 4 mg tab(s) (ZOFRAN ODT) 4 mg ORAL q 6 H PRN Or ondansetron (PF) 4 mg injec (more content not included)... Normal [facility] CT BRAIN WO IVCONon 10-14-19 CT BRAIN WO IVCON * * *Final Report* * * DATE OF EXAM: Oct 14 2024 4:40PM [facility] [place] - CT BRAIN WO IVCON / PROCEDURE REASON: Mental status change, unknown cause * * * * Physician Interpretation * * * * EXAMINATION: CT BRAIN WO IVCON CLINICAL HISTORY: Mental status change. TECHNIQUE: Serial axial images without IV contrast were obtained from the vertex to the foramen magnum. MQ: CTBWO_3 CT Radiation dose: Integrated Dose-Length Product (DLP) for this visit = 655 mGy*cm CT Dose Reduction Employed: Automated exposure control(AEC) and iterative recon COMPARISON: CT brain on 06/28/2024 RESULT: Post-operative change: None. Acute change: No evidence of an acute infarct or other acute parenchymal process. Hemorrhage: No evidence of acute intracranial hemorrhage. ECASS hemorrhagic transformation score: Not Applicable Mass Lesion / Mass Effect: There is no evidence of an intracranial mass or extraaxial fluid collection. No significant mass effect. Chronic change: None apparent. Parenchyma: There is no significant volume loss. The brain parenchyma is otherwise within normal limits for age. Ventricles: The ventricles are within normal limits of size and configuration for age. Paranasal sinuses and skull base: The visualized paranasal sinuses are grossly clear. The skull base and imaged soft tissues are unremarkable. Localizer images: No additional findings. IMPRESSION: No acute intracranial process identified. Drug Safety Coordinator: SNEHAL Transcribe Date/Time: Oct 14 2024 4:56P Dictated by : AJIT SOLORZANO MD This examination was interpreted and the report reviewed and electronically signed by: AJIT SOLORZANO MD on Oct 14 2024 5:04PM EST [id number] Normal [facility] Magnesium SerPl-mCncon 10-14 Magnesium [Mass/Vol] 2.1 mg/dL Normal 1.7-2.3 [facility] Comment on above: Order Comment: Speci men Type: BLOOD SPECIMENOrdering Facility: [facility] Address: [address] [place] [address] Performed By: #### 2 4321-2, 73504-2 ####[facility]IA [id number] [place] [address] [facility] PT EDon 10-14-2024 PT ED HNO ID: [id number] Author: ELOISE CHEEK RPh Service: Pharmacy Author Type: Pharmacist Type: Patient Education Filed: 10/14/2024 13:59 Note Text: PHARMACY ANTICOAGULATION EDUCATION Patient Name: Matt Baum Account #: Data Unavailable Admission Date: 10/12/2024 11:23 PM Date of Contact: October 14, 2024 Time of Contact: 1:57 PM Patient anticipated to be discharged on warfarin as oral anticoagulant therapy. Anticoagulant history: Patient is transitioning to a new oral anticoagulant. This patient was previously anticoagulated at home with apixaban. Patient previously tried warfarin approximately 5 years ago, but never achieved a therapeutic level Outpatient follow-up plan: Follow-up with physician: Heme/onc following Indication for oral 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: deep vein thrombosis (DVT) Target INR range: 2.0 - 3.0 (Target 2.5) Warfarin education status: Patient received full warfarin education Reason for taking warfarin How warfarin works What the INR test is, frequency of testing, and the importance of monitoring warfarin When to take warfarin and what to do if a dose is missed Identifying tablet(s) and to notify the doctor/anticoagulatio n clinic if there is a change in tablet color, shape, or markings Drug interactions (Rx, OTC, herbal) and importance of notifying the doctor or 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 clinic with any changes Do not take or discontinue any medication or over the counter medication except on the advice of the physician or pharmacist Signs/symptoms of bleeding and what to do if they occur Precautionary measures to decrease trauma/bleeding Signs/symptoms of thrombosis and what to do if they occur Need to limit or avoid alcohol consumption Dietary considerations emphasizing a ?consistent amount? of foods with vitamin K rather than avoiding foods with vitamin K and to avoid major changes in dietary habits, or to notify health professional before changing habits Carrying identification Importance of notifying healthcare provider and 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 clinic when hospitalizations occur and when another healthcare provider has asked them to stop/hold warfarin before any procedure Importance of notifying all healthcare providers they are taking warfarin Use of control measures, if applicable The importance of taking warfarin as instructed and the potential ramifications of non-compliance were explained to the patient. The patient was provided supplemental information which includes the following: compliance Issues, dietary advice, follow-up with physician, follow- up monitoring, potential adverse drug reactions and interactions. Eloise Cheek [facility] Normal [facility] PT panel Coag (PPP)on 2024 INR Coag (PPP) [Relative time] 1.1 {INR} Normal 0.9-1.3 [facility] Comment on above: Order Comment: Jose polanco Type: BLOOD SPECIMEN Ordering Facility: [facility] Address: [address] [place] [address] Result Comment: Olinda min K Antagonist (VKA) Therapeutic Range: INR 2 to 3 (Target INR of 2.5) Note: For patients treated with VKA drugs, such as warfarin, the [place] [employer] 2012 Guideline recommends a therapeutic INR range of 2 to 3 (target INR of 2.5). This recommendation includes high-risk patients with antiphospholipid syndrome with previous arterial or venous thromboembolism, current-generation mechanical or bioprosthetic aortic heart valve replacement. Note: Patients with mechanical aortic valve replacement and additional risk factors for thromboembolic events (atrial fibrillation, previous thromboembolism, LV dysfunction, hypercoagulable conditions) or an older generation mechanical AVR (i.e., ball in-Cage) or any mechanical MVR should have a INR therapeutic range of 2.5 to 3.5 (target INR of 3). Haritha GH, et al. Chest 2012, 141:7S-47S Yari RA, et al. [facility] 2017, 70: 252-289 Performed By: #### P TTAC, 45855-9 #### [facility] CLIA [id number] [address] [place] [address] [place] PT Coag (PPP) [Time] 12.0 s Normal 9.7-13.0 [facility] Comment on above: Order Comment: Speci men Type: BLOOD SPECIMEN Ordering Facility: [facility] Address: [address] [place] [address] Performed By: #### P TTAC, 01241-0 #### [facility] CLIA [id number] [address] OF [place] PTT, ANTICOAGULANT THERAPYon 10-14-2024 aPTT Coag (PPP) [Time] 47.6 s High 23.0-32.4 [facility] Comment on above: Order Comment: Speci men Type: BLOOD SPECIMENOrdering Facility: [facility] Address: [address] [place] [address] Performed By: #### P TTAC ####[facility]CLIA [id number] [address] OF [facility] aPTT Coag (PPP) [Time] 98.8 s High 23.0-32.4 [facility] Comment on above: Order Comment: Speci men Type: BLOOD SPECIMEN Ordering Facility: [facility] Address: [address] [place] [address] Performed By: #### P TTAC, 15043-5 #### [facility] CLIA [id number] [address] [place] [address] [place] US ARM VEIN DVT UNL VAS LABo n 10-14-2024 US ARM VEIN DVT UNL VAS LAB Normal [facility] BETA 2 GLYCOPROTEIN, IGGon 0 10-13-2024 Beta 2 glycoprotein 1 IgG IA Qn <9 Normal <20 [facility] Comment on above: Order Comment: Speci men Type: BLOOD SPECIMENOrdering Facility: [facility] Address: [address] [place] [address] Result Comment: <20 SGU Negative 20-80 SGU Low Positive >80 SGU High Positive These results were obtained with the Inova QUANTA Lite B2 GPI IgG NILSON. B2 GPI IgG values obtained with different manufacturers' assay methods may not be used interchangeably. The magnitude of the reported IgG levels cannot be correlated to an endpoint titer. Performed By: #### B VIRA PERALTA, 5076-5, GABBIE BETA2G ####[facility] LAB[facility]IA [id number] [place] [address] [place] BETA 2 GLYCOPROTEIN, IGMon 0 10-13-2024 Beta 2 glycoprotein 1 IgM IA Qn <9 Normal <20 [facility] Comment on above: Order Comment: Jose polanco Type: BLOOD SPECIMENOrdering Facility: [facility] Address: [address] [place] [address] Result Comment: <20 SMU Negative 20-80 SMU Low Positive >80 SMU High positive These results were obtained with the Inova QUANTA Lite B2 GPI IgM NILSON. B2 GPI IgM values obtained with different manufacturers' assay methods may not be used interchangeably. The magnitude of the reported IgM levels cannot be correlated to an endpoint titer. Performed By: #### B VIRA PERALTA, 5076-5, GABBIE BETA2G ####[facility] LABCLIA [id number] [place] [address] [place] Basic metabolic 2000 panelon 10-13-2024 Anion gap [Moles/Vol] 12 mmol/L Normal 8-15 [facility] Comment on above: Order Comment: Jose polanco Type: BLOOD SPECIMEN Ordering Facility: [facility] Address: [address] [place] [address] Performed By: #### P [facility], 92907-4 #### [facility] CLIA [id number] [address] [place] [id number] [place] Calcium [Mass/Vol] 9.2 mg/dL Normal 8.5-10.2 [facility] Comment on above: Order Comment: Jose polanco Type: BLOOD SPECIMEN Ordering Facility: [facility] Address: [address] [place] [address] Performed By: #### P TTAC, 26140-6 #### [facility] CLIA [id number] [address] [place] [address] [place] Chloride [Moles/Vol] 103 mmol/L Normal 98-107 [facility] Comment on above: Order Comment: Speci men Type: BLOOD SPECIMEN Ordering Facility: [facility] Address: [address] [place] [address] Performed By: #### P TTAC, 84468-5 #### [facility] CLIA [id number] [address] [place] [address] [place] CO2 [Moles/Vol] 24 mmol/L Normal 22-30 [facility] Comment on above: Order Comment: Reshmai men Type: BLOOD SPECIMEN Ordering Facility: [facility] Address: [address] [place] [address] Performed By: #### P TTAC, 89742-5 #### [facility] CLIA [id number] [address] Creatinine [Mass/Vol] 0.70 mg/dL Normal 0.58-0.96 [facility] Comment on above: Order Comment: Reshmai men Type: BLOOD SPECIMEN Ordering Facility: [facility] Address: [address] [place] [address] Performed By: #### P TTAC, 33590-8 #### [facility] CLIA [id number] [address] Creatinine and Glomerular filtration rate.predicted panel (S/P/Bld) 116 mL/min/1.73m??? Normal >=60 [facility] Comment on above: Order Comment: Speci men Type: BLOOD SPECIMEN Ordering Facility: [facility] Address: [address] [place] [address] Result Comment: Valarie mated Glomerular Filtration Rate (eGFR) is calculated using the 2020 CKD-EPI creatinine equation. This equation utilizes serum creatinine, sex, and age as parameters. The creatinine assay has traceable calibration to isotope dilution-mass spectrometry. Refer to KDIGO guidelines for clinical interpretation. In patients with unstable renal function, e.g. those with acute kidney injury, the eGFR may not accurately reflect actual GFR. Performed By: #### P TTAC, 26279-3 #### [facility] CLIA [id number] [address] [place] [address] [place] Glucose [Mass/Vol] 90 mg/dL Normal 74-99 [facility] Comment on above: Order Comment: Jose polanco Type: BLOOD SPECIMEN Ordering Facility: [facility] Address: [address] [place] [address] Result Comment: The [place] Diabetes Association (ADA) provides guidance for cutoff values for fasting glucose and random glucose. The ADA defines fasting as no caloric intake for at least 8 hours. Fasting plasma glucose results between 100 to 125 mg/dL indicate increased risk for diabetes (prediabetes). Fasting plasma glucose results greater than or equal to 126 mg/dL meet the criteria for diagnosis of diabetes. In the absence of unequivocal hyperglycemia, results should be confirmed by repeat testing. In a patient with classic symptoms of hyperglycemia or hyperglycemic crisis, random plasma glucose results greater than or equal to 200 mg/dL meet the criteria for diagnosis of diabetes. Reference: Standards of Medical Care in Diabetes 2016, [place] Diabetes Association. Diabetes Care. 2016.39(Suppl 1). Performed By: #### P TTAC, 67189-1 #### [facility] CLIA [id number] [address] [place] [address] [place] Potassium [Moles/Vol] 3.8 mmol/L Normal 3.7-5.1 [facility] Comment on above: Order Comment: Jose polanco Type: BLOOD SPECIMEN Ordering Facility: [facility] Address: [address] [place] [address] Performed By: #### P TTAC, 16024-9 #### [facility] CLIA [id number] [address] [place] [address] [place] Sodium [Moles/Vol] 139 mmol/L Normal 136-144 [facility] Comment on above: Order Comment: Jose polanco Type: BLOOD SPECIMEN Ordering Facility: [facility] Address: [address] [place] [address] Performed By: #### P TTAC, 76657-4 #### [facility] CLIA [id number] [address] [place] Urea nitrogen [Mass/Vol] 7 mg/dL Normal 7-21 [facility] Comment on above: Order Comment: Reshmafarzad polanco Type: BLOOD SPECIMEN Ordering Facility: [facility] Address: [address] [place] [address] Performed By: #### P [facility], 69114-9 #### [facility] CLIA [id number] [address] CARDIOLIPIN IGG ABSon 2024 Cardiolipin IgG IA Qn (S) <9.0 Normal <15.0 [facility] Comment on above: Order Comment: Reshmafarzad polanco Type: BLOOD SPECIMENOrdering Facility: [facility] Address: [address] [place] [address] Result Comment: <15 GPL Negative 15-20 GPL Indeterminate >20 GPL Positive The following results were obtained with the Inova QUANTA Lite JOSE IgG III NILSON. Cardiolipin IgG values obtained with the different manufacturers' assay methods may not be used interchangeably. The magnitude of the reported IgG levels cannot be correlated to an endpoint titer. Performed By: #### B VIRA PERALTA, 5076-5, CARDIBrijesh BETA2G ####[facility] LABCLIA [id number] [address] OF [facility] CARDIOLIPIN IGM ABSon 2024 Cardiolipin IgM IA Qn (S) <9.0 Normal <12.5 [facility] Comment on above: Order Comment: Reshmafarzad polanco Type: BLOOD SPECIMENOrdering Facility: [facility] Address: [address] [place] [address] Result Comment: <12. 5 MPL Negative 12.5-20 MPL Indeterminate >20 MPL Positive The following results were obtained with the Inova QUANTA Lite JOSE IgM III NILSON. Cardiolipin IgM values obtained with the different manufacturers' assay methods may not be used interchangeably. The magnitude of the reported IgM levels cannot be correlated to an endpoint titer. ??? Performed By: #### B ETA2M, CARDIG, 5076-5, CARDIBrijesh, BETA2G ####[facility] LABCLIA [id number] [address] [address] [facility] CASE MGT INIT CATYon 2024 CASE MGT INIT CATY HNO ID: [id number] Author: CARLINE VANESSA LISW Service: ? Author Type: Operator [employer] Type: Care Mgt Initial Assessment Filed: 10/13/2024 14:24 Note Text: CARE MANAGEMENT: ASSESSMENT AND DISCHARGE PLAN SERVICE DATE: October 13, 2024 SERVICE TIME: 2:17 PM PCP: Ravinder Babb MD Primary Contact: Extended Emergency Contact Information Primary Emergency Contact: Chris Baum Address: [address] [place], [place] [id number] [place] [address] Mobile Relation: Spouse Admission Status: Observation Insurance Provider: N/A Discharge Planning requested by: Per Department Practice Potential Transition Plans Home;To Be Determined Advance Directives Current Advance Directive: None Nicu Rn Attempted to Assist with AD Completion: Yes Action: Education Provided Current Living Arrangements and Support Lives with: Children, Spouse/significant other Type of Residence: Private Residence (House) Does the patient have to climb stairs at home?: Yes Support: Friends/neighbors, Family members, Spouse/significant other How do you manage to accomplish the following: Independent: Ambulation;Bathe/Show er;Dress;Meals/Meal Prep;Going to the bathroom;Medication Management;Transporta tion to appointments/communit y Current Services/Equipment Current Post-Acute Service(s): None Discharge Planning Patient Goal(s): General wellness, Be able to go home [place] of Choice Explained: Are you interested in bedside delivery of your medications? No Discharge Planning Participant(s): Patient;Spouse/signif icant other Patient/Family Comments: Pt from home with spouse and 5 minor children. Pt is independent at baseline. Caregiver Assessment: Transport at Discharge: Transportation Arrangements: Car Destination: home Needs Prior to Discharge: Needs Prior to Discharge: To Be Determined Post-Acute Discharge Plan: EMR reviewed. SW completed Initial Assessment with pt via phone due to isolation status. Pt presents with left upper extremity DVT. Hematology consult pending. RSV+. Pt from home with spouse and 5 children (ages 2-12), reports she is independent with all ADLs, uses no DME. Pt is 100% HCAP covered until 12/13/2024. Pt denies safety concerns or housing/utility/nutri tion deficits. Spouse will transport at discharge. SW/CM team will continue to follow for potential discharge needs. SIGNATURE: TED Dash PATIENT NAME: Matt Baum DATE: October 13, 2024 TIME: 2:[address] [facility] CBC panel Auto (Bld)on 10-13 Erythrocyte distribution width (RBC) [Ratio] 12.6 % Normal 11.5-15.0 [facility] Comment on above: Order Comment: Speci men Type: BLOOD SPECIMENOrdering Facility: [facility] Address: [address] [place] [address] Performed By: #### 5 8410-2 ####[facility] [id number] [address] [place] Hematocrit (Bld) [Volume fraction] 40.5 % Normal 36.0-46.0 [facility] Comment on above: Order Comment: Speci men Type: BLOOD SPECIMENOrdering Facility: [facility] Address: [address] [place] [address] Performed By: #### 5 8410-2 ####[facility]IA [id number] [place] [address] [place] Hemoglobin (Bld) [Mass/Vol] 13.6 g/dL Normal 11.5-15.5 [facility] Comment on above: Order Comment: Speci men Type: BLOOD SPECIMENOrdering Facility: [facility] Address: [address] [place] [address] Performed By: #### 5 8410-2 ####[facility] [id number] [place] [address] [place] MCH (RBC) [Entitic mass] 29.5 pg Normal 26.0-34.0 [facility] Comment on above: Order Comment: Speci men Type: BLOOD SPECIMENOrdering Facility: [facility] Address: [address] [place] [address] Performed By: #### 5 8410-2 ####[facility] [id number] [address] MCHC (RBC) [Mass/Vol] 33.6 g/dL Normal 30.5-36.0 [facility] Comment on above: Order Comment: Speci men Type: BLOOD SPECIMENOrdering Facility: [facility] Address: [address] [place] [address] Performed By: #### 5 8410-2 ####[facility] [id number] [address] MCV (RBC) [Entitic vol] 87.9 fL Normal 80.0-100.0 [facility] Comment on above: Order Comment: Speci men Type: BLOOD SPECIMENOrdering Facility: [facility] Address: [address] [place] [address] Performed By: #### 5 8410-2 ####[facility] [id number] [address] Nucleated RBC (Bld) [#/Vol] 10*3/uL Normal <0.01 [facility] Comment on above: Order Comment: Speci men Type: BLOOD SPECIMENOrdering Facility: [facility] Address: [address] [place] [address] Performed By: #### 5 8410-2 ####LUCAS LABORATORYCLIA [id number] [address] Platelet mean volume (Bld) [Entitic vol] 10.7 fL Normal 9.0-12.7 [facility] Comment on above: Order Comment: Speci men Type: BLOOD SPECIMENOrdering Facility: [facility] Address: [address] [place] [address] Performed By: #### 5 8410-2 ####LUCAS LABORATORYCLIA [id number] [address] Platelets (Bld) [#/Vol] 143 10*3/uL Low 150-400 [facility] Comment on above: Order Comment: Speci men Type: BLOOD SPECIMENOrdering Facility: [facility] Address: [address] [place] [address] Performed By: #### 5 8410-2 ####LUCAS LABORATORYCLIA [id number] [address] [place] RBC (Bld) [#/Vol] 4.61 10*6/uL Normal 3.90-5.20 [facility] Comment on above: Order Comment: Speci men Type: BLOOD SPECIMENOrdering Facility: [facility] Address: [address] [place] [address] Performed By: #### 5 8410-2 ####LUCAS LABORATORYCLIA [id number] [address] [place] WBC (Bld) [#/Vol] 3.56 10*3/uL Low 3.70-11.00 [facility] Comment on above: Order Comment: Speci men Type: BLOOD SPECIMENOrdering Facility: [facility] Address: [address] [place] [address] Performed By: #### 5 8410-2 ####LUCAS LABORATORYCLIA [id number] [address] Erythrocyte distribution width (RBC) [Ratio] 12.5 % Normal 11.5-15.0 [facility] Comment on above: Order Comment: Speci men Type: BLOOD SPECIMENOrdering Facility: [facility] Address: [address] [place] [address] Performed By: #### 5 8410-2 ####LUCAS LABORATORYCLIA [id number] [address] [place] Hematocrit (Bld) [Volume fraction] 40.5 % Normal 36.0-46.0 [facility] Comment on above: Order Comment: Speci men Type: BLOOD SPECIMENOrdering Facility: [facility] Address: [address] [place] [address] Performed By: #### 5 8410-2 ####LUCAS LABORATORYCLIA [id number] [address] [place] Hemoglobin (Bld) [Mass/Vol] 13.5 g/dL Normal 11.5-15.5 [facility] Comment on above: Order Comment: Speci men Type: BLOOD SPECIMENOrdering Facility: [facility] Address: [address] [place] [address] Performed By: #### 5 8410-2 ####LUCAS LABORATORYCLIA [id number] [address] MCH (RBC) [Entitic mass] 29.4 pg Normal 26.0-34.0 [facility] Comment on above: Order Comment: Speci men Type: BLOOD SPECIMENOrdering Facility: [facility] Address: [address] [place] [address] Performed By: #### 5 8410-2 ####LUCAS LABORATORYCLIA [id number] [address] MCHC (RBC) [Mass/Vol] 33.3 g/dL Normal 30.5-36.0 [facility] Comment on above: Order Comment: Speci men Type: BLOOD SPECIMENOrdering Facility: [facility] Address: [address] [place] [address] Performed By: #### 5 8410-2 ####LUCAS LABORATORYCLIA [id number] [address] MCV (RBC) [Entitic vol] 88.2 fL Normal 80.0-100.0 [facility] Comment on above: Order Comment: Speci men Type: BLOOD SPECIMENOrdering Facility: [facility] Address: [address] [place] [address] Performed By: #### 5 8410-2 ####LUCAS LABORATORYCLIA [id number] [address] Nucleated RBC (Bld) [#/Vol] 10*3/uL Normal <0.01 [facility] Comment on above: Order Comment: Speci men Type: BLOOD SPECIMENOrdering Facility: [facility] Address: [address] [place] [address] Performed By: #### 5 8410-2 ####LUCAS LABORATORYCLIA [id number] [address] Platelet mean volume (Bld) [Entitic vol] 11.0 fL Normal 9.0-12.7 [facility] Comment on above: Order Comment: Speci men Type: BLOOD SPECIMENOrdering Facility: [facility] Address: [address] [place] [address] Performed By: #### 5 8410-2 ####LUCAS LABORATORYCLIA [id number] [address] Platelets (Bld) [#/Vol] 158 10*3/uL Normal 150-400 [facility] Comment on above: Order Comment: Speci men Type: BLOOD SPECIMENOrdering Facility: [facility] Address: [address] [place] [address] Performed By: #### 5 8410-2 ####LUCAS LABORATORYCLIA [id number] [address] OF [facility] RBC (Bld) [#/Vol] 4.59 10*6/uL Normal 3.90-5.20 [facility] Comment on above: Order Comment: Speci men Type: BLOOD SPECIMENOrdering Facility: [facility] Address: [address] [place] [address] Performed By: #### 5 8410-2 ####LUCAS LABORATORYCLIA [id number] [address] WBC (Bld) [#/Vol] 4.16 10*3/uL Normal 3.70-11.00 [facility] Comment on above: Order Comment: Speci men Type: BLOOD SPECIMENOrdering Facility: [facility] Address: [address] [place] [address] Performed By: #### 5 8410-2 ####LUCAS LABORATORYCLIA [id number] [address] Erythrocyte distribution width (RBC) [Ratio] 12.5 % Normal 11.5-15.0 [facility] Comment on above: Order Comment: Speci men Type: BLOOD SPECIMENOrdering Facility: [facility] Address: [address] [place] [address] Performed By: #### 5 8410-2 ####LUCAS LABORATORYCLIA [id number] [address] [place] Hematocrit (Bld) [Volume fraction] 40.6 % Normal 36.0-46.0 [facility] Comment on above: Order Comment: Speci men Type: BLOOD SPECIMENOrdering Facility: [facility] Address: [address] [place] [address] Performed By: #### 5 8410-2 ####LUCAS LABORATORYCLIA [id number] [address] [facility] Hemoglobin (Bld) [Mass/Vol] 13.5 g/dL Normal 11.5-15.5 [facility] Comment on above: Order Comment: Speci men Type: BLOOD SPECIMENOrdering Facility: [facility] Address: [address] [place] [address] Performed By: #### 5 8410-2 ####LUCAS LABORATORYCLIA [id number] [address] MCH (RBC) [Entitic mass] 29.0 pg Normal 26.0-34.0 [facility] Comment on above: Order Comment: Speci men Type: BLOOD SPECIMENOrdering Facility: [facility] Address: [address] [place] [address] Performed By: #### 5 8410-2 ####LUCAS LABORATORYCLIA [id number] [address] MCHC (RBC) [Mass/Vol] 33.3 g/dL Normal 30.5-36.0 [facility] Comment on above: Order Comment: Speci men Type: BLOOD SPECIMENOrdering Facility: [facility] Address: [address] [place] [address] Performed By: #### 5 8410-2 ####LUCAS LABORATORYCLIA [id number] [address] MCV (RBC) [Entitic vol] 87.1 fL Normal 80.0-100.0 [facility] Comment on above: Order Comment: Speci men Type: BLOOD SPECIMENOrdering Facility: [facility] Address: [address] [place] [address] Performed By: #### 5 8410-2 ####LUCAS LABORATORYCLIA [id number] [place] [address] [place] Nucleated RBC (Bld) [#/Vol] 10*3/uL Normal <0.01 [facility] Comment on above: Order Comment: Speci men Type: BLOOD SPECIMENOrdering Facility: [facility] Address: [address] [place] [address] Performed By: #### 5 8410-2 ####LUCAS LABORATORYCLIA [id number] [place] [address] [place] Platelet mean volume (Bld) [Entitic vol] 11.1 fL Normal 9.0-12.7 [facility] Comment on above: Order Comment: Speci men Type: BLOOD SPECIMENOrdering Facility: [facility] Address: [address] [place] [address] Performed By: #### 5 8410-2 ####LUCAS LABORATORYCLIA [id number] [address] [place] Platelets (Bld) [#/Vol] 153 10*3/uL Normal 150-400 [facility] Comment on above: Order Comment: Speci men Type: BLOOD SPECIMENOrdering Facility: [facility] Address: [address] [place] [address] Performed By: #### 5 8410-2 ####LUCAS LABORATORYCLIA [id number] [address] [place] RBC (Bld) [#/Vol] 4.66 10*6/uL Normal 3.90-5.20 [facility] Comment on above: Order Comment: Speci men Type: BLOOD SPECIMENOrdering Facility: [facility] Address: [address] [place] [address] Performed By: #### 5 8410-2 ####LUCAS LABORATORYCLIA [id number] [address] [place] WBC (Bld) [#/Vol] 4.26 10*3/uL Normal 3.70-11.00 [facility] Comment on above: Order Comment: Speci men Type: BLOOD SPECIMENOrdering Facility: [facility] Address: [address] [place], [place] [address] [address] Performed By: #### 5 8410-2 ####[facility] [id number] [place] [address] [facility] CONSULTon 10-13-2024 CONSULT HNO ID: [id number] Author: ELOISE MINA APRN.DIRECTOR OF PUBLICATIONS Service: Hematology/Oncology Author Type: Nurse Practitioner Type: Consults Filed: 10/13/2024 15:51 Note Text: Attestation signed by Mk Escoto MD at 10/14/2024 9:02 AM Attending Note I have personally performed a face to face assessment of the patient and have reviewed the DOC note. I performed a substantive portion of the visit including all aspects of the following. My dixon findings include: It remains unclear why she is having recurrent/propagation of DVTs, especially of the upper extremity as these are generally uncommon. I question whether there is a structural component as she has failed both eliquis and lovenox now. The PT gene mutation is often insufficent in-itself in leading to clots and most people with this mutation do not develop a clot ever. Will repeat APS labs as this could explain recurrent clots. For now, recommend heparin infusion as we bridge her to warfarin. 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 Baum is a 33 year old female with past medical history or Factor II deficiency, and DVT/PE (follows with Dr. Quarles, patient had 1 very small focal PE in the setting of dehydration in May,. Treated with lovenox and then coumadin. Coumadin made her nauseas and she was switched to eliquis. She remained on eliquis and was changed to lovenox during and breast feeding. Anticoagulation stopped 01/11/2024. Patient was admitted May, for DVT in the LUE, she was discharged on lovenox indefinitely) who presented to ED last night after she felt a pop in her left upper arm which has a known DVT, she instantly felt dizzy and SOB. Ultrasound positive for acute deep vein thrombosis in the LEFT upper extremity involving lower aspect of the LEFT internal jugular vein, LEFT subclavian vein, and LEFT axillary vein. Propagation of thrombus when compared to 09/14/2024 (previously only identified in the LEFT axillary vein). Appears nonocclusive. CT chest negative for PE. Labs unremarkable. Patient started on heparin drip. 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 PAST MEDICAL HISTORY Diagnosis Date Acquired hypothyroidism 10/21/2017 Anemia during in first trimester 10/16/2021 Ojvel's cyst, left 05/10/2019 Biliary dyskinesia 12/08/2019 Factor II deficiency (HCC) Family history of defect 08/26/2021 08/26/2021. Patient son born with a cyst on the brain. It was surgically removed when he was 6 years old. 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 PE (pulmonary thromboembolism) (HCC) 05/10/2019 05/10/2019 Situational stress 01/31/2020 Vocal cord dysfunction Paradoxical VOCAL CORD DYSFUNCTION PAST SURGICAL HISTORY Procedure Laterality Date APPENDECTOMY TONSILLECTOMY AND ADENOIDECTOMY FAMILY HISTORY Problem Relation Age of Onset Stroke Father Alcohol abuse Father Psychiatry Mother BIPOLAR Thyroid Mother No Known Problems Sister No Known Problems Sister No Known Problems Sister No Known Problems Brother Arthritis Maternal Grandmother Heart Maternal Grandmother Osteoporosis Maternal Grandmother Stroke Maternal Grandmother other (Hypotension) Maternal Grandmother Heart Maternal Grandfather Hypertension Maternal Grandfather Alcohol/Drug Maternal Grandfather Psychiatry Maternal Grandfather BIPOLAR No Known Problems Paternal Grandmother No Known Problems Paternal Grandfather No Known Problems Daughter No Known Problems Daughter other (cyst on brain) Son No Known Problems Son No Ocular Disease No Family History Social History Tobacco Use Smoking status: Never Smokeless tobacco: Never Tobacco comments: No smoking in family Vaping Use Vaping status: Never Used Substance Use Topics Alcohol use: Not Currently Drug use: No levothyroxine (LEVOXYL) 88 mcg tablet, Take 1 tablet by mouth once daily. Take on empty stomach. For Thyroid, Disp: 90 tablet, Rfl: 0, 10/12/2024 enoxaparin (LOVENOX) 60 mg/0.6 mL syrg, Inject 0.55 mL subcutaneously two times a day., Disp: 36 mL, Rfl: 0, 10/12/2024 potassium chloride 20 mEq TbER, Take 1 tablet by mouth once daily., Disp: 90 tablet, Rfl: 3, 10/11/2024 apixab (more content not included)... Normal [facility] Cardiolipin IgA Ser IA-aCnco n 10-13-2024 Cardiolipin IgA IA Qn (S) <9.0 Normal <12.0 [facility] Comment on above: Order Comment: Speci men Type: BLOOD SPECIMENOrdering Facility: [facility] Address: [address] [place] [address] Result Comment: <12 APL Negative 12-20 APL Indeterminate >20 APL Positive The following results were obtained with the [employer] QUANTA Lite JOSE IgA III NILSON. Cardiolipin IgA values obtained with the different manufacturers' assay methods may not be used interchangeably. The magnitude of the reported IgA levels cannot be correlated to an endpoint titer. 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 Coming in today for sensation in her upper arm and left neck. Has a history of DVT to left upper extremity. History of factor II deficiency. Failure of DOAC. Had been on Lovenox for some time now. Reports compliance with medications. Fevers. No visual changes. PAST MEDICAL HISTORY Diagnosis Date - Acquired hypothyroidism 10/21/2017 - Anemia during in first trimester 10/16/2021 - Jovel's cyst, left 05/10/2019 - Biliary dyskinesia 12/08/2019 - Factor II deficiency (HCC) - Family history of defect 08/26/2021 08/26/2021. Patient son born with a cyst on the brain. It was surgically removed when he was 6 years old. 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 - PE (pulmonary thromboembolism) (HCC) 05/10/2019 05/10/2019 - Situational stress 01/31/2020 - Vocal cord dysfunction Paradoxical VOCAL CORD DYSFUNCTION PAST SURGICAL HISTORY Procedure Laterality Date - APPENDECTOMY - TONSILLECTOMY AND ADENOIDECTOMY FAMILY HISTORY Problem Relation Age of Onset - Stroke Father - Alcohol abuse Father - Psychiatry Mother BIPOLAR - Thyroid Mother - No Known Problems Sister - No Known Problems Sister - No Known Problems Sister - No Known Problems Brother - Arthritis Maternal Grandmother - Heart Maternal Grandmother - Osteoporosis Maternal Grandmother - Stroke Maternal Grandmother - other (Hypotension) Maternal Grandmother - Heart Maternal Grandfather - Hypertension Maternal Grandfather - Alcohol/Drug Maternal Grandfather - Psychiatry Maternal Grandfather BIPOLAR - No Known Problems Paternal Grandmother - No Known Problems Paternal Grandfather - No Known Problems Daughter - No Known Problems Daughter - other (cyst on brain) Son - No Known Problems Son - No Ocular Disease No Family History Social History Tobacco Use - Smoking status: Never - Smokeless tobacco: Never - Tobacco comments: No smoking in family Vaping Use - Vaping status: Never Used Substance and Sexual Activity - Alcohol use: Not Currently - Drug use: No - Sexual activity: Not on file Comment: not asked ALLERGIES Allergen Reactions - Pereira Pepper Anaphylaxis, Other: See Comments - Latex Anaphylaxis, Hives - Amoxicillin Hives, Swelling - Banana Swelling - Latex Hives Verified by skin testing - Nubain [Nalbuphine * Rash - Avocado Itching - Carrot Itching - [place] And Derivati* Other: See Comments - Kiwi Itching - Hydroxyzine Other: See Comments Extreme fatigue - Omeprazole Other: See Comments nausea - Sertraline Other: See Comments Bruising, stopped by hematology 12/3022 Review of Systems Constitutional: Negative for chills, diaphoresis, fatigue and fever. HENT: Negative for congestion, ear pain, sinus pain and sore throat. Eyes: Negative for photophobia, pain, redness and visual disturbance. Respiratory: Positive for shortness of breath. Negative for cough and chest tightness. Cardiovascular: Positive for chest pain. Negative for palpitations and leg swelling. Gastrointestinal: Negative for abdominal distention, abdominal pain, constipation, diarrhea, nausea and vomiting. Genitourinary: Negative for difficulty urinating, dysuria, flank pain, frequency and urgency. Musculoskeletal: Negative for back pain, neck pain and neck stiffness. Arm pain Skin: Negative for color change, rash and wound. Neurological: Negative for dizziness, syncope, light-headedness and headaches. Psychiatric/Behaviora l: Negative for agitation, behavioral problems and confusion. Physical Exam Vitals [10/12/24 1930] BP Pulse Temp Temp src Resp SpO2 Weight Height 127/84 (!) 95 36.7 ?C (98 ?F) Temporal 18 100 % 53.5 kg (118 lb) -- Physical Exam Vitals and nursing note reviewed. Constitutional: Appearance: She is well-developed. She is not diaphoretic. HENT: Head: Normocephalic and atraumatic. Right Ear: External ear normal. Left Ear: External ear normal. Eyes: General: No scleral icterus. Right eye: No discharge. Left eye: No discharge. Conjunctiva/sclera: Conjunctivae normal. Pupils: Pupils are equal, round, and reactive to light. Neck: Vascular: No JVD. Trachea: No tracheal deviation. Cardiovascular: Rate and Rhythm: Normal rate and regular rhythm. Heart sounds: Normal heart sounds. No murmur heard. No fricti (more content not included)... Normal [facility] HISTORY PHYSICALon HISTORY PHYSICAL HNO ID: [id number] Author: ELOISE PUENTES PA-C Service: Hospital Medicine Author Type: Physician Log Chain Feeder Type: H&P Filed: 10/13/2024 05:49 Note Text: Attestation signed by Carol Parnell MD at 10/13/2024 7:16 AM Attending Note I have personally reviewed KARLOS note .Agree with above Nydia feng P. Carol Parnell MD [facility] MEDICINE HISTORY AND PHYSICAL EXAM SERVICE DATE: 10/13/2024 SERVICE TIME: 5:31 AM Primary Care Physician: Ravinder Babb MD NIGHT AND WEEKEND COVERAGE: [place] COVERAGE: Days: [phone], please page attending physician. Nights: [phone], please page [place] Night coverage pager [phone]. Subjective CHIEF COMPLAINT: pop in left upper arm/neck HPI: This is a 33 year old female with PMHx of PE, hypothyroidism, factor II deficiency, recurrent DVTs in LUE, and hypokalemia who presents with pop in left upper arm/neck. She presents with her mom, Lise. She has a known DVT in her left upper extremity with Factor II deficiency for which she has been on Lovenox after failure of DOAC about 4 weeks ago. She has a hx of a PE in 2018 and was on Eliquis from [id number]. She was then found to have a DVT in her left upper extremity and was started on Lovenox from 2020-01/2024 while she was and . She had a breakthrough clot in LUE in May 2024 and was started on Eliquis again up until 09/14/24 for another acute DVT in LUE and failure of DOAC. She follows with heme/onc, Dr. Quarles and his PA-C (see note 09/19/24 for AC hx). Thursday night, patient states she noted left sided neck pain/stiffness that was bothersome without movement but subsided. 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 After feeling the pop, she reports immediately feeling dizzy and shortness of breath. She endorses intermittent palpitations. She endorses an URI for the past 4 days with rhinorrhea and congestion with an associated headache. She notes her TSH levels have been off and she is concerned for hyper-metabolization of AC which could becausing her breakthrough clots. She states she has been compliant with Lovenox and has not missed any doses but dose state at times she takes them 2-3hrs after the scheduled dose. She states she has had Covid twice, last in 11/2023 and questions if that could be causing her breakthrough clots. She is requesting a consult to vascular surgery as the clot keeps recurring in the same arm. She denies smoking, alcohol use, illicit drug use. She denies falls, syncope, injury to neck/LUE, numbness/tingling, lightheadedness, dysphagia, dysarthria, chest pain, abdominal pain, nausea, vomiting, diarrhea, constipation, dysuria, lower extremity edema. She desires to be a full code. ED course: Afebrile, BP 127/84, HR 95, RR 18 with SpO2 100% on RA. CBC WNL. CMP unremarkable. PT/INR, apTT WNL. CTA chest W IVCON PE: No acute pulmonary embolism. US DVT LUE: Positive for acute deep vein thrombosis in the LEFT upper extremity involving lower aspect of the LEFT internal jugular vein, LEFT subclavian vein, and LEFT axillary vein. Propagation of thrombus when compared to 09/14/2024 (previously only identified in the LEFT axillary vein). Appears nonocclusive. Nondiagnostic study for superficial thrombophlebitis in the imaged segments of the left upper extremity . Patient started on Heparin. Patient admitted to [facility] under the hospital medicine service for management of chronic DVT of LUE with propagation. 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 Patient son born with a cyst on the brain. It was surgically removed when he was 6 years old. 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 PE (pulmonary thromboembolism) (HCC) 05/10/2019 05/10/2019 Situational stress 01/31/2020 Vocal cord dysfunction Paradoxical VOCAL CORD DYSFUNCTION PAST SURGICAL HISTORY Procedure Laterality Date APPENDECTOMY TONSILLECTOMY AND ADENOIDECTOMY FAMILY HISTORY Problem Relation Age of Onset Stroke Father Alcohol abuse Father Psychiatry Mother BIPOLAR Thyroid Mother No Known Problems Sister No Known Problems Sister No Known Problems Sister No Known Problems Brother Arthritis Maternal Grandmother Heart Maternal Grandmother Osteoporosis Maternal Grandmother Stroke Maternal Grandmot (more content not included)... Normal [facility] LUPUS PANELon 10-13-2024 ANTI XA HZ + DOAC <0.10 Normal <0.10 [facility] Comment on above: Order Comment: Speci men Type: BLOOD SPECIMENOrdering Facility: [facility] Address: [address] [place] [id number] Performed By: #### L [id number], LUPPL ####[facility] LABCLIA [id number] [facility] [place] [address] [place] aPTT Coag (Bld) [Time] 37.6 s Normal 30.2-43.0 [facility] Comment on above: Order Comment: Jose polanco Type: BLOOD SPECIMENOrdering Facility: [facility] Address: [address] [place] [address] Result Comment: The specimen was treated with ANTI-XA neutralizing reagents to remove heparin, low molecular weight heparin, and DOAC activity from the plasma. This test was developed, and its performance characteristics determined by the [facility] Department of Pathology and Laboratory Medicine. It has not been cleared or approved by the FDA. The [facility] Department of Pathology and Laboratory Medicine is regulated under CLIA as qualified to perform high-complexity testing. This test is used for clinical purposes. It should not be regarded as investigational or for research. Performed By: #### L [id number], LUPPL ####[facility] LABCLIA [id number] [address] aPTT Coag (Bld) [Time] 35.8 s Normal 31.5-38.3 [facility] Comment on above: Order Comment: Jose polanco Type: BLOOD SPECIMENOrdering Facility: [facility] Address: [address] [place] [address] Result Comment: The specimen was treated with ANTI-XA neutralizing reagents to remove heparin, low molecular weight heparin, and DOAC activity from the plasma. This test was developed, and its performance characteristics determined by the [facility] Department of Pathology and Laboratory Medicine. It has not been cleared or approved by the FDA. The [facility] Department of Pathology and Laboratory Medicine is regulated under CLIA as qualified to perform high-complexity testing. This test is used for clinical purposes. It should not be regarded as investigational or for research. Performed By: #### L [id number], LUPPL ####[facility] LABCLIA [id number] [address] OF [facility] aPTT Coag (Bld) [Time] 67.5 s High 24.0-35.1 [facility] Comment on above: Order Comment: Jose polanco Type: BLOOD SPECIMENOrdering Facility: [facility] Address: [address] [place] [address] Performed By: #### L [id number], LUPPL ####[facility] LABCLIA [id number] [address] [place] APTT SCRN HZ + DOAC 29.2 Normal 24.0-35.1 [facility] Comment on above: Order Comment: Speci men Type: BLOOD SPECIMENOrdering Facility: [facility] Address: [address] [place] [address] Performed By: #### L [id number], LUPPL ####[facility] LABIA [id number] [address] aPTT W excess hexagonal phase phospholipid Coag (PPP) [Time] 43.5 seconds Normal 34.0-51.8 [facility] Comment on above: Order Comment: Speci men Type: BLOOD SPECIMENOrdering Facility: [facility] Address: [address] [place] [address] Result Comment: The specimen was treated with ANTI-XA neutralizing reagents to remove heparin, low molecular weight heparin, and DOAC activity from the plasma. Performed By: #### L [id number], LUPPL ####[facility] LABIA [id number] [address] Coagulation factor X activated act Coag Qn (PPP) 0.75 High <0.10 [facility] Comment on above: Order Comment: Speci men Type: BLOOD SPECIMENOrdering Facility: [facility] Address: [address] [place] [address] Result Comment: This test was developed, and its performance characteristics determined by the [facility] Department of Pathology and Laboratory Medicine. It has not been cleared or approved by the FDA. The [facility] Department of Pathology and Laboratory Medicine is regulated under CLIA as qualified to perform high-complexity testing. This test is used for clinical purposes. It should not be regarded as investigational or for research. Performed By: #### L [id number], LUPPL ####[facility] LABCLIA [id number] [address] [place] Delta dRVVT Coag (PPP) [Time diff] 1.6 delta seconds Normal <7.1 [facility] Comment on above: Order Comment: Speci men Type: BLOOD SPECIMENOrdering Facility: [facility] Address: [address] [place] [address] Result Comment: The specimen was treated with ANTI-XA neutralizing reagents to remove heparin, low molecular weight heparin, and DOAC activity from the plasma. Performed By: #### L [id number], LUPPL ####[facility] LABCLIA [id number] [address] [place] dRVVT Coag (PPP) [Time] 35.0 s Normal 32.0-45.7 [facility] Comment on above: Order Comment: Speci men Type: BLOOD SPECIMENOrdering Facility: [facility] Address: [address] [place] [address] Result Comment: The specimen was treated with ANTI-XA neutralizing reagents to remove heparin, low molecular weight heparin, and DOAC activity from the plasma. Performed By: #### L [id number], LUPPL ####[facility] LABIA [id number] [address] [place] dRVVT factor substitution immediately after 1:2 addition of normal plasma Coag (PPP) [Time] 34.6 seconds Normal 32.0-45.7 [facility] Comment on above: Order Comment: Speci men Type: BLOOD SPECIMENOrdering Facility: [facility] Address: [address] [place] [address] Result Comment: The specimen was treated with ANTI-XA neutralizing reagents to remove heparin, low molecular weight heparin, and DOAC activity from the plasma. Performed By: #### L [id number], LUPPL ####[facility] LABIA [id number] [address] [place] dRVVT W excess hexagonal phase phospholipid actual/normal Coag (PPP) [Relative time] 42.0 seconds Normal 34.2-47.9 [facility] Comment on above: Order Comment: Speci men Type: BLOOD SPECIMENOrdering Facility: [facility] Address: [address] [place] [address] Result Comment: The specimen was treated with ANTI-XA neutralizing reagents to remove heparin, low molecular weight heparin, and DOAC activity from the plasma. Performed By: #### L [id number], LUPPL ####[facility] LABCLIA [id number] [address] [place] dRVVT/dRVVT.excess phospholipid Coag (PPP) [Ratio] 1.01 Normal <1.32 [facility] Comment on above: Order Comment: Speci [facility] Type: BLOOD SPECIMENOrdering Facility: [facility] Address: [address] [place] [address] Result Comment: The specimen was treated with ANTI-XA neutralizing reagents to remove heparin, low molecular weight heparin, and DOAC activity from the plasma. Performed By: #### L [id number], LUPPL ####[facility] LABIA [id number] [address] [place] PLATELET NEUT 0.0 Seconds Normal <1.9 [facility] Comment on above: Order Comment: Speci [facility] Type: BLOOD SPECIMENOrdering Facility: [facility] Address: [address] [place] [address] Result Comment: The specimen was treated with ANTI-XA neutralizing reagents to remove heparin, low molecular weight heparin, and DOAC activity from the plasma. This test was developed, and its performance characteristics determined by the [facility] Department of Pathology and Laboratory Medicine. It has not been cleared or approved by the FDA. The [facility] Department of Pathology and Laboratory Medicine is regulated under CLIA as qualified to perform high-complexity testing. This test is used for clinical purposes. It should not be regarded as investigational or for research. Performed By: #### L [id number], LUPPL ####[facility] LABCLIA [id number] [address] [place] Thrombin time Coag (PPP) [Time] >109.0 High <18.6 [facility] Comment on above: Order Comment: Speci men Type: BLOOD SPECIMENOrdering Facility: [facility] Address: [address] [place] [address] Performed By: #### L [id number], LUPPL ####[facility] LABCLIA [id number] [place] [address] [place] THROMBIN TIME HZ + DOAC 21.0 High <18.6 [facility] Comment on above: Order Comment: Speci men Type: BLOOD SPECIMENOrdering Facility: [facility] Address: [address] [place] [address] Performed By: #### L [id number], LUPPL ####[facility] LABCLIA [id number] [address] [place] LUPUS PANEL INTERPon 025 Lupus anticoagulant (PPP) [Interp] Normal [facility] Comment on above: Order Comment: Speci men Type: BLOOD SPECIMENOrdering Facility: [facility] Address: [address] [place] [address] Result Comment: Abno al - see comment below. SIGNIFICANT FINDINGS: 1. Lupus Anticoagulant: NEGATIVE 2. DRUG EFFECT: Heparin, neutralized 3. DRUG EFFECT: Factor Xa, neutralized Laboratory testing was performed to evaluate the presence of a lupus anticoagulant and antiphospholipid antibodies. Prolonged APTT with a normal PT. The anti-Xa screen was positive with a prolonged thrombin time and the results corrected following heparinase neutralization and DOAC removal. These results indicate a combined anti-Xa and heparin drug effect and are consistent with the medication record indicating heparin and apixaban therapy. LUPUS ANTICOAGULANT STUDIES: There is no evidence for a lupus anticoagulant or other coagulation inhibitor at this time. ANTIPHOSPHOLIPID ANTIBODY STUDIES: The IgG, IgM and IgA anticardiolipin antibody titers were all negative. Both the IgG and IgM Beta-2 Glycoprotein I antibody titers were negative. THE FOLLOWING TESTS WERE ADDED AND ARE REPORTED SEPARATELY: APTT mixing study, Hexagonal phase phospholipid neutralization, DRVVT and PNP. Performed By: #### L [id number], LUPPL ####[facility] LABCLIA [id number] [address] [place] Pathologist name Reviewed by Ayesha Segundo MD [facility] Comment on above: Order Comment: Jose polanco Type: BLOOD SPECIMENOrdering Facility: [facility] Address: [facility] [place] [address] Performed By: #### L [id number], LUPPL ####[facility] LABCLIA [id number] [address] [id number] [id number] [place] Magnesium SerPl-mCncon 10-13 Magnesium [Mass/Vol] 2.2 mg/dL Normal 1.7-2.3 [facility] Comment on above: Order Comment: Jose polanco Type: BLOOD SPECIMEN Ordering Facility: [facility] Address: [address] [place] [address] [place] [address] Performed By: #### P TTA, 19249-9 #### [facility] CLIA [id number] [address] [place] [address] [place] PT panel Coag (PPP)on 2024 INR Coag (PPP) [Relative time] 1.0 {INR} Normal 0.9-1.3 [facility] Comment on above: Order Comment: Jose polanco Type: BLOOD SPECIMENOrdering Facility: [facility] Address: [address] [place], [place] [address] [address] Result Comment: Olinda min K Antagonist (VKA) Therapeutic Range: INR 2 to 3 (Target INR of 2.5) Note: For patients treated with VKA drugs, such as warfarin, the [place] [employer] 2012 Guideline recommends a therapeutic INR range of 2 to 3 (target INR of 2.5). This recommendation includes high-risk patients with antiphospholipid syndrome with previous arterial or venous thromboembolism, current-generation mechanical or bioprosthetic aortic heart valve replacement. Note: Patients with mechanical aortic valve replacement and additional risk factors for thromboembolic events (atrial fibrillation, previous thromboembolism, LV dysfunction, hypercoagulable conditions) or an older generation mechanical AVR (i.e., ball in-Cage) or any mechanical MVR should have a INR therapeutic range of 2.5 to 3.5 (target INR of 3). Haritha GH, et al. Chest 2012, 141:7S-47S Yari RA, et al. JACC 2017, 70: 252-289 Performed By: #### 3 4528-0, 61068-9 ####[facility] [id number] [address] PT Coag (PPP) [Time] 11.3 s Normal 9.7-13.0 [facility] Comment on above: Order Comment: Speci men Type: BLOOD SPECIMENOrdering Facility: [facility] Address: [address] [place] [address] Performed By: #### 3 4528-0, 87765-6 ####[facility] [id number] [address] INR Coag (PPP) [Relative time] 1.1 {INR} Normal 0.9-1.3 [facility] Comment on above: Order Comment: Speci men Type: BLOOD SPECIMENOrdering Facility: [facility] Address: [address] [place] [address] Result Comment: Olinda min K Antagonist (VKA) Therapeutic Range: INR 2 to 3 (Target INR of 2.5) Note: For patients treated with VKA drugs, such as warfarin, the [place] [employer] 2012 Guideline recommends a therapeutic INR range of 2 to 3 (target INR of 2.5). This recommendation includes high-risk patients with antiphospholipid syndrome with previous arterial or venous thromboembolism, current-generation mechanical or bioprosthetic aortic heart valve replacement. Note: Patients with mechanical aortic valve replacement and additional risk factors for thromboembolic events (atrial fibrillation, previous thromboembolism, LV dysfunction, hypercoagulable conditions) or an older generation mechanical AVR (i.e., ball in-Cage) or any mechanical MVR should have a INR therapeutic range of 2.5 to 3.5 (target INR of 3). Haritha GH, et al. Chest 2012, 141:7S-47S Yari RA, et al. [facility] 2017, 70: 252-289 Performed By: #### 3 4528-0, PTTAC ####[facility] [id number] [address] PT Coag (PPP) [Time] 11.8 s Normal 9.7-13.0 [facility] Comment on above: Order Comment: Speci men Type: BLOOD SPECIMENOrdering Facility: [facility] Address: [address] [place] [address] Performed By: #### 3 4528-0, PTTAC ####[facility] [id number] [address] [place] PTT, ANTICOAGULANT THERAPYon 10-13-2024 aPTT Coag (PPP) [Time] 51.6 s High 23.0-32.4 [facility] Comment on above: Order Comment: Speci men Type: BLOOD SPECIMENOrdering Facility: [facility] Address: [address] [place] [address] Performed By: #### P TTAC ####[facility] [id number] [address] aPTT Coag (PPP) [Time] 54.5 s High 23.0-32.4 [facility] Comment on above: Order Comment: Speci men Type: BLOOD SPECIMEN Ordering Facility: [facility] Address: [address] [place] [address] Performed By: #### P TTAC #### [facility] CLIA [id number] aPTT Coag (PPP) [Time] 83.4 s High 23.0-32.4 [facility] Comment on above: Order Comment: Speci men Type: BLOOD SPECIMENOrdering Facility: [facility] Address: [address] [place] [address] Performed By: #### P TTAC ####[facility] [id number] [address] aPTT Coag (PPP) [Time] 28.9 s Normal 23.0-32.4 [facility] Comment on above: Order Comment: Speci men Type: BLOOD SPECIMENOrdering Facility: [facility] Address: [address] [place] [address] Performed By: #### 3 4528-0, PTTAC ####[facility] [id number] [address] [place] T3Free [facility]19 25 Free T3 [Mass/Vol] 2.6 pg/mL Normal 2.3-4.1 [facility] Comment on above: Order Comment: Jose polanco Type: BLOOD SPECIMENOrdering Facility: [facility] Address: [address] [place] [address] Performed By: #### 3 051-0, 3024-7 ####[facility] LABCLIA [id number] [address] OF [facility] T4 Free SerPl-mCncon 025 Free T4 [Mass/Vol] 1.2 ng/dL Normal 0.9-1.7 [facility] Comment on above: Order Comment: Jose polanco Type: BLOOD SPECIMENOrdering Facility: [facility] Address: [address] [place] [address] Performed By: #### 3 051-0, 3024-7 ####[facility] LABCLIA [id number] [address] [place] aPTT PPPon 10-13-2024 aPTT Coag (PPP) [Time] 54.1 s High 23.0-32.4 [facility] Comment on above: Order Comment: Jose polanco Type: BLOOD SPECIMENOrdering Facility: [facility] Address: [address] [place] [address] Performed By: #### 3 4528-0, 89016-8 ####[facility] [id number] [place] [address] [place] ALLIED HEALTHon 10-12-2024 ALLIED HEALTH HNO ID: [id number] Author: ALEJANDRO CAMP Tech Service: Radiology Author Type: Artificial Glass Eye Maker Type: Allied Health Filed: 10/12/2024 22:37 Note Text: Radiology Service Progress Note PATIENT NAME: Matt Baum DATE OF SERVICE: October 12, 2024 TIME: 10:37 PM PATIENT IDENTITY VERIFICATION COMPLETED USING TWO (2) IDENTIFIERS: Name and Date of confirmed by patient verbally. FALL SCREENING: Has the patient had 2 falls in the last year or 1 fall with injury or currently using an Ambulatory Assistive Device (Walker, Cane, Wheelchair, Crutches, etc.)? Emergency Room Patient: Screened in ED PATIENT GENDER DATA: Female. status: : No status: NO. PATIENT RELEVANT IMPLANT DATA REVIEWED: Not Applicable PATIENT PRESENTS WITH AN IMPLANTABLE OR ATTACHED SENIOR AUTOMATION ENGINEER: No RADIOLOGY DEPARTMENT: Ultrasound PERIPHERAL IV DATA: Not applicable SIGNED BY: Marysol Crespo October 12, 2024 10:37 PM [facility] [id number] Author: ISELA FERNANDEZ RT(R) Service: Radiology Author Type: Technologist Type: Allied Health Filed: 10/12/2024 21:55 Note Text: Radiology Service Progress Note DATE OF SERVICE: October 12, 2024 TIME: 9:54 PM PATIENT IDENTITY VERIFICATION COMPLETED USING TWO (2) STANDARD IDENTIFIERS: Name and Date of confirmed by patient verbally and Name and Date of confirmed by identification band. FALL SCREENING: Has the patient had 2 falls in the last year or 1 fall with injury or currently using an Ambulatory Assistive Device (Walker, Cane, Wheelchair, Crutches, etc.)? Emergency Room Patient: Screened in ED PATIENT GENDER DATA: Female. status: : No status: NO. PATIENT RELEVANT IMPLANT DATA REVIEWED: Not Applicable PATIENT PRESENTS WITH AN IMPLANTABLE OR ATTACHED SENIOR AUTOMATION ENGINEER: No ALLERGIES: Reviewed and unchanged CONTRAST ALLERGY: NO. EXAM: CT -CONTRAST INDUCED NEPHROPATHY RISK FACTORS: Not applicable CREATININE: Creatinine Date Value Ref Range Status 10/12/2024 0.75 0.58 - 0.96 mg/dL Final 09/29/2024 0.91 0.58 - 0.96 mg/dL Final 06/24/2024 0.84 0.58 - 0.96 mg/dL Final Estimated Glomerular Filtration Rate Date Value Ref Range Status 10/12/2024 107 >=60 mL/min/1.73m? Final Comment: Estimated Glomerular Filtration Rate (eGFR) is calculated using the 2020 CKD-EPI creatinine equation. This equation utilizes serum creatinine, sex, and age as parameters. The creatinine assay has traceable calibration to isotope dilution-mass spectrometry. Refer to KDIGO guidelines for clinical interpretation. In patients with unstable renal function, e.g. those with acute kidney injury, the eGFR may not accurately reflect actual GFR. eGFR- Date Value Ref Range Status 11/13/2021 >60 Final P.O.C.T. RESULTS: POC done: Yes, See Lab Tab October 12, 2024 TREATMENT: N/A PERIPHERAL IV DATA: Inpatient - refer to LDA documentation RADIOLOGY DEPARTMENT: CT; Exam(s) Completed: PE Study SIGNATURE: RT Yair(R) PATIENT NAME: Matt Baum DATE: October 12, 2024 TIME: 9:[address] [facility] CBC W Auto Differential pane l (Bld)on 10-12-2024 Basophils (Bld) [#/Vol] 0.03 10*3/uL Normal <0.11 [facility] Comment on above: Order Comment: Speci sherri Type: BLOOD SPECIMENOrdering Facility: [facility] Address: [address] [place] [address] Performed By: #### 5 7021-8 ####[facility] [id number] [place] [address] [place] Basophils/100 WBC (Bld) 0.6 % Normal [facility] Comment on above: Order Comment: Speci men Type: BLOOD SPECIMENOrdering Facility: [facility] Address: [address] [place] [address] Performed By: #### 5 7021-8 ####[facility]ORY[facility]IA [id number] [place] [address] [place] Differential cell count method Nom (Bld) Auto Normal [facility] Comment on above: Order Comment: Reshmai sherri Type: BLOOD SPECIMENOrdering Facility: [facility] Address: [address] [place] [address] Performed By: #### 5 7021-8 ####[facility]ORY[facility] [id number] [place] [address] [place] Eosinophils (Bld) [#/Vol] 0.04 10*3/uL Normal <0.46 [facility] Comment on above: Order Comment: Speci men Type: BLOOD SPECIMENOrdering Facility: [facility] Address: [address] [place] [address] Performed By: #### 5 7021-8 ####[facility]ORY[facility] [id number] [place] [address] [place] Eosinophils/100 WBC (Bld) 0.8 % Normal [facility] Comment on above: Order Comment: Speci men Type: BLOOD SPECIMENOrdering Facility: [facility] Address: [address] [place] [address] Performed By: #### 5 7021-8 ####[facility] [id number] [address] [place] Erythrocyte distribution width (RBC) [Ratio] 12.4 % Normal 11.5-15.0 [facility] Comment on above: Order Comment: Speci men Type: BLOOD SPECIMENOrdering Facility: [facility] Address: [address] [place] [address] Performed By: #### 5 7021-8 ####[facility] [id number] [address] [place] Hematocrit (Bld) [Volume fraction] 42.2 % Normal 36.0-46.0 [facility] l Comment on above: Order Comment: Speci men Type: BLOOD SPECIMENOrdering Facility: [facility] Address: [address] [place] [address] Performed By: #### 5 7021-8 ####[facility] [id number] [address] [place] Hemoglobin (Bld) [Mass/Vol] 13.7 g/dL Normal 11.5-15.5 [facility] Comment on above: Order Comment: Speci men Type: BLOOD SPECIMENOrdering Facility: [facility] Address: [address] [place] [address] Performed By: #### 5 7021-8 ####[facility] [id number] [place] [address] [place] Immature granulocytes (Bld) [#/Vol] 10*3/uL Normal <0.10 [facility] Comment on above: Order Comment: Speci men Type: BLOOD SPECIMENOrdering Facility: [facility] Address: [address] [place] [address] Performed By: #### 5 7021-8 ####[facility] [id number] [address] Immature granulocytes/100 WBC (Bld) 0.2 % Normal [facility] Comment on above: Order Comment: Speci men Type: BLOOD SPECIMENOrdering Facility: [facility] Address: [address] [place] [address] Performed By: #### 5 7021-8 ####[facility] [id number] [place] [address] [place] Lymphocytes (Bld) [#/Vol] 1.63 10*3/uL Normal 1.00-4.00 [facility] Comment on above: Order Comment: Speci men Type: BLOOD SPECIMENOrdering Facility: [facility] Address: [address] [place] [address] Performed By: #### 5 7021-8 ####[facility] [id number] [address] Lymphocytes/100 WBC (Bld) 31.8 % Normal [facility] Comment on above: Order Comment: Speci men Type: BLOOD SPECIMENOrdering Facility: [facility] [facility] Address: [address] [place] [address] Performed By: #### 5 7021-8 ####LUCAS LABORATORYCLIA [id number] [address] [place] MCH (RBC) [Entitic mass] 28.7 pg Normal 26.0-34.0 [facility] Comment on above: Order Comment: Speci men Type: BLOOD SPECIMENOrdering Facility: [facility] Address: [address] [place] [address] Performed By: #### 5 7021-8 ####LUCAS LABORATORYCLIA [id number] [address] STATES [facility] MCHC (RBC) [Mass/Vol] 32.5 g/dL Normal 30.5-36.0 [facility] Comment on above: Order Comment: Speci men Type: BLOOD SPECIMENOrdering Facility: [facility] Address: [address] [place] [address] Performed By: #### 5 7021-8 ####LUCAS LABORATORYCLIA [id number] [place] [address] [place] MCV (RBC) [Entitic vol] 88.3 fL Normal 80.0-100.0 [facility] Comment on above: Order Comment: Speci men Type: BLOOD SPECIMENOrdering Facility: [facility] Address: [address] [place] [address] Performed By: #### 5 7021-8 ####LUCAS LABORATORYCLIA [id number] [place] [address] [place] Monocytes (Bld) [#/Vol] 0.56 10*3/uL Normal <0.87 [facility] Comment on above: Order Comment: Speci men Type: BLOOD SPECIMENOrdering Facility: [facility] Address: [address] [place] [address] Performed By: #### 5 7021-8 ####LUCAS LABORATORYCLIA [id number] [address] [place] Monocytes/100 WBC (Bld) 10.9 % Normal [facility] Comment on above: Order Comment: Speci men Type: BLOOD SPECIMENOrdering Facility: [facility] Address: [address] [place] [address] Performed By: #### 5 7021-8 ####LUCAS LABORATORYCLIA [id number] [address] [place] Neutrophils (Bld) [#/Vol] 2.85 10*3/uL Normal 1.45-7.50 [facility] Comment on above: Order Comment: Speci men Type: BLOOD SPECIMENOrdering Facility: [facility] Address: [address] [place] [address] Performed By: #### 5 7021-8 ####LUCAS LABORATORYCLIA [id number] [address] [place] Neutrophils/100 WBC (Bld) 55.7 % Normal [facility] Comment on above: Order Comment: Speci men Type: BLOOD SPECIMENOrdering Facility: [facility] Address: [address] [place] [address] Performed By: #### 5 7021-8 ####LUCAS LABORATORYCLIA [id number] [place] [address] [place] Nucleated RBC (Bld) [#/Vol] 10*3/uL Normal <0.01 [facility] Comment on above: Order Comment: Speci men Type: BLOOD SPECIMENOrdering Facility: [facility] Address: [address] [place] [address] Performed By: #### 5 7021-8 ####LUCAS LABORATORYCLIA [id number] [place] [address] [place] Nucleated RBC/100 WBC (Bld) [Ratio] 0.0 /[address] [facility] Comment on above: Order Comment: Speci men Type: BLOOD SPECIMENOrdering Facility: [facility] Address: [address] [place] [address] Performed By: #### 5 7021-8 ####LUCAS LABORATORYCLIA [id number] [place] [address] [place] Platelet mean volume (Bld) [Entitic vol] 10.5 fL Normal 9.0-12.7 [facility] Comment on above: Order Comment: Speci men Type: BLOOD SPECIMENOrdering Facility: [facility] Address: [address] [place] [address] Performed By: #### 5 7021-8 ####LUCAS LABORATORYCLIA [id number] [address] [place] Platelets (Bld) [#/Vol] 153 10*3/uL Normal 150-400 [facility] Comment on above: Order Comment: Speci men Type: BLOOD SPECIMENOrdering Facility: [facility] Address: [address] [place] [address] Performed By: #### 5 7021-8 ####LUCAS LABORATORYCLIA [id number] [place] [address] [place] RBC (Bld) [#/Vol] 4.78 10*6/uL Normal 3.90-5.20 [facility] Comment on above: Order Comment: Speci men Type: BLOOD SPECIMENOrdering Facility: [facility] Address: [address] [place] [address] Performed By: #### 5 7021-8 ####LUCAS LABORATORYCLIA [id number] [place] [address] [place] [facility] [place] WBC (Bld) [#/Vol] 5.12 10*3/uL Normal 3.70-11.00 [facility] Comment on above: Order Comment: Speci men Type: BLOOD SPECIMENOrdering Facility: [facility] Address: [address] [place] [id number] Performed By: #### 5 7021-8 ####LUCAS LABORATORYCLIA [id number] [place] [address] [place] CTA CHEST (NON GATED) W IVCO N PEon 10-12-2024 CTA CHEST (NON GATED) W IVCON PE * * *Final Report* * * DATE OF EXAM: Oct 12 2024 9:56PM [facility] [place] 0564 - CTA CHEST (NON GATED) W IVCON PE / PROCEDURE REASON: Pulmonary embolism (PE) suspected, high prob * * * * Physician Interpretation * * * * EXAMINATION: CTA CHEST (NON GATED) W IVCON PE Exam Date/Time: 10/12/2024 9:56 PM CLINICAL HISTORY: Pulmonary embolism (PE) suspected, high prob TECHNIQUE: Spiral CT acquisition of the chest from the thoracic inlet to the upper abdomen following IV contrast using standard protocol with coronal and sagittal reformatted images. Maximum intensity projection images generated. Contrast: 80 mL Omnipaque [address] Radiation dose: Integrated Dose-length product (DLP) for this visit = 247 mGy*cm CT Dose Reduction Employed: Automated exposure control(AEC) and iterative recon COMPARISON: No available prior. RESULT: Limitations: None. Evaluation for thromboembolic disease: No filling defects to suggest acute pulmonary embolism. The central pulmonary arteries are within normal size limits. Heart, pericardium, and thoracic vessels: The heart is within normal size limits. No pericardial effusion. No thoracic aortic aneurysm. Lower neck, lymph nodes, and mediastinum: No pathologically enlarged lymph nodes in the chest. Lung parenchyma, pleura, and airways: Patent central airways. No consolidations or edema. No suspicious pulmonary nodules. No pleural effusions. No pneumothorax. Upper abdomen: No acute abnormality. Bones/Soft tissues: No acute findings. IMPRESSION: No acute pulmonary embolism. Drug Safety Coordinator: PSCB Transcribe Date/Time: Oct 12 2024 10:48P Dictated by : SANYA GARCIA MD This examination was interpreted and the report reviewed and electronically signed by: SANYA GARCIA MD on Oct 12 2024 10:49PM EST [id number] N Normal [facility] Comprehensive metabolic 2000 panelon 10-12-2024 Albumin [Mass/Vol] 4.8 g/dL Normal 3.9-4.9 [facility] Comment on above: Order Comment: Speci men Type: BLOOD SPECIMENOrdering Facility: [facility] Address: [address] [place] [address] Performed By: #### 2 4323-8, 3016-3 ####LUCAS LABORATORYCLIA [id number] [address] STATES [facility] ALP [Catalytic activity/Vol] 45 U/L Normal 34-123 [facility] Comment on above: Order Comment: Speci men Type: BLOOD SPECIMENOrdering Facility: [facility] Address: [address] [place] [address] Performed By: #### 2 4323-8, 3016-3 ####LUCAS LABORATORYCLIA [id number] [address] ALT [Catalytic activity/Vol] 19 U/L Normal 7-38 [facility] Comment on above: Order Comment: Speci men Type: BLOOD SPECIMENOrdering Facility: [facility] Address: [address] [place] [address] Performed By: #### 2 4323-8, 3016-3 ####LUCAS LABORATORYCLIA [id number] [place] [id number] [place] [facility] Anion gap [Moles/Vol] 7 mmol/L Low 8-15 [facility] Comment on above: Order Comment: Speci men Type: BLOOD SPECIMENOrdering Facility: [facility] Address: [address] [place] [address] Performed By: #### 2 4323-8, 3016-3 ####LUCAS LABORATORYCLIA [id number] [address] AST [Catalytic activity/Vol] 17 U/L Normal 13-35 [facility] Comment on above: Order Comment: Speci men Type: BLOOD SPECIMENOrdering Facility: [facility] Address: [address] [place] [id number] Performed By: #### 2 4323-8, 3016-3 ####LUCAS LABORATORYCLIA [id number] [place] [address] [place] Bilirubin [Mass/Vol] 0.3 mg/dL Normal 0.2-1.3 [facility] Comment on above: Order Comment: Speci men Type: BLOOD SPECIMENOrdering Facility: [facility] Address: [address] [place] [address] Performed By: #### 2 4323-8, 3015-3 ####LUCAS LABORATORYCLIA [id number] [place] [address] [place] Calcium [Mass/Vol] 9.7 mg/dL Normal 8.5-10.2 [facility] Comment on above: Order Comment: Speci men Type: BLOOD SPECIMENOrdering Facility: [facility] Address: [address] [place] [address] Performed By: #### 2 4323-8, 6-3 ####LUCAS LABORATORYCLIA [id number] [place] [address] [place] Chloride [Moles/Vol] 102 mmol/L Normal 98-107 [facility] Comment on above: Order Comment: Speci men Type: BLOOD SPECIMENOrdering Facility: [facility] Address: [address] [place] [address] Performed By: #### 2 4323-8, 6-3 ####LUCAS LABORATORYCLIA [id number] [place] [address] [place] CO2 [Moles/Vol] 30 mmol/L Normal 22-30 [facility] Comment on above: Order Comment: Speci men Type: BLOOD SPECIMENOrdering Facility: [facility] Address: [address] [place] [id number] Performed By: #### 2 4323-8, 6-3 ####LUCAS LABORATORYCLIA [id number] [place] [address] [place] Creatinine [Mass/Vol] 0.75 mg/dL Normal 0.58-0.96 [facility] Comment on above: Order Comment: Jose polanco Type: BLOOD SPECIMENOrdering Facility: [facility] Address: [address] [place] [address] Performed By: #### 2 4323-8, 3016-3 ####LUCAS LABORATORYCLIA [id number] [place] [id number] [place] [facility] [place] Creatinine and Glomerular filtration rate.predicted panel (S/P/Bld) 107 mL/min/1.73m??? Normal >=60 [facility] Comment on above: Order Comment: Jose polanco Type: BLOOD SPECIMENOrdering Facility: [facility] Address: [address] [place] [address] Result Comment: Valarie mated Glomerular Filtration Rate (eGFR) is calculated using the 2020 CKD-EPI creatinine equation. This equation utilizes serum creatinine, sex, and age as parameters. The creatinine assay has traceable calibration to isotope dilution-mass spectrometry. Refer to KDIGO guidelines for clinical interpretation. In patients with unstable renal function, e.g. those with acute kidney injury, the eGFR may not accurately reflect actual GFR. Performed By: #### 2 4323-8, 6-3 ####LUCAS LABORATORYCLIA [id number] [place] [id number] [place] Glucose [Mass/Vol] 97 mg/dL Normal 74-99 [facility] Comment on above: Order Comment: Jose polanco Type: BLOOD SPECIMENOrdering Facility: [facility] Address: [address] [place] [address] Result Comment: The [place] Diabetes Association (ADA) provides guidance for cutoff values for fasting glucose and random glucose. The ADA defines fasting as no caloric intake for at least 8 hours. Fasting plasma glucose results between 100 to 125 mg/dL indicate increased risk for diabetes (prediabetes). Fasting plasma glucose results greater than or equal to 126 mg/dL meet the criteria for diagnosis of diabetes. In the absence of unequivocal hyperglycemia, results should be confirmed by repeat testing. In a patient with classic symptoms of hyperglycemia or hyperglycemic crisis, random plasma glucose results greater than or equal to 200 mg/dL meet the criteria for diagnosis of diabetes. Reference: Standards of Medical Care in Diabetes 2016, [place] Diabetes Association. Diabetes Care. 2016.39(Suppl 1). Performed By: #### 2 4323-8, 3016-3 ####LUCAS LABORATORYCLIA [id number] [place] [address] [place] Potassium [Moles/Vol] 4.2 mmol/L Normal 3.7-5.1 [facility] Comment on above: Order Comment: Speci men Type: BLOOD SPECIMENOrdering Facility: [facility] Address: [address] [place] [address] Performed By: #### 2 4323-8, 6-3 ####LUCAS LABORATORYCLIA [id number] [place] [address] [place] Protein [Mass/Vol] 7.4 g/dL Normal 6.3-8.0 [facility] Comment on above: Order Comment: Reshmai sherri Type: BLOOD SPECIMENOrdering Facility: [facility] Address: [address] [place] [address] Performed By: #### 2 4323-8, 6-3 ####LUCAS LABORATORYCLIA [id number] [address] [place] Sodium [Moles/Vol] 139 mmol/L Normal 136-144 [facility] Comment on above: Order Comment: Reshmai men Type: BLOOD SPECIMENOrdering Facility: [facility] Address: [address] [place] [address] Performed By: #### 2 4323-8, 3015-3 ####LUCAS LABORATORYCLIA [id number] [address] [place] Urea nitrogen [Mass/Vol] 8 mg/dL Normal 7-21 [facility] Comment on above: Order Comment: Reshmai men Type: BLOOD SPECIMENOrdering Facility: [facility] Address: [address] [place] [address] Performed By: #### 2 4323-8, 6-3 ####LUCAS LABORATORYCLIA [id number] [address] OF [facility] ED Triage Noteon 10-12-2024 ED Triage Note HNO ID: [id number] Author: WILI ZAMUDIO APRN.CNP Service: ? Author Type: Nurse Practitioner Type: ED Triage Notes Filed: 10/12/2024 19:37 Note Text: ED TRIAGE PROVIDER NOTE Patient Name: Matt Baum Service Date: 10/12/24 BRIEF HPI: This is a 33 year old female who presents to the ED with: known left upper arm DVT on lovenox. She states she was at gymnastics and felt a pop in her left arm and now a burning sensation. She is concerned her clot burst. BRIEF EXAM: NAD Awake and Alert Non labored breathing No deformity noted to left upper arm, no color change or ecchymosis, no swelling, ROM intact INITIAL WORKUP AND DECISION MAKING: Orders Placed This Encounter CTA CHEST (NONGATED) W IVCON PE COMP METABOLIC PANEL (BMP+LFT) CBC + DIFF PT/INR Activated Partial Thromboplastin Time iv contrast (radiology procedure) SIGNATURE: Wili Zamudio APRN.CNP Normal [facility] PT panel Coag (PPP)on 2024 INR Coag (PPP) [Relative time] 1.0 {INR} Normal 0.9-1.3 [facility] Comment on above: Order Comment: Speci men Type: BLOOD SPECIMENOrdering Facility: [facility] Address: [address] [place] [address] Result Comment: Olinda min K Antagonist (VKA) Therapeutic Range: INR 2 to 3 (Target INR of 2.5) Note: For patients treated with VKA drugs, such as warfarin, the [place] College [employer] Chest Physicians 2012 Guideline recommends a therapeutic INR range of 2 to 3 (target INR of 2.5). This recommendation includes high-risk patients with antiphospholipid syndrome with previous arterial or venous thromboembolism, current-generation mechanical or bioprosthetic aortic heart valve replacement. Note: Patients with mechanical aortic valve replacement and additional risk factors for thromboembolic events (atrial fibrillation, previous thromboembolism, LV dysfunction, hypercoagulable conditions) or an older generation mechanical AVR (i.e., ball in-Cage) or any mechanical MVR should have a INR therapeutic range of 2.5 to 3.5 (target INR of 3). Haritha GH, et al. Chest 2012, 141:7S-47S Yari RA, et al. [facility] 2017, 70: 252-289 Performed By: #### 3 4528-0, 71031-8 ####GREELEY LABORATORYCLIA [id number] [address] OF [facility] PT Coag (PPP) [Time] 11.2 s Normal 9.7-13.0 [facility] Comment on above: Order Comment: Speci men Type: BLOOD SPECIMENOrdering Facility: [facility] Address: [address] [place] [address] Performed By: #### 3 4528-0, 32953-2 ####GREELEY LABORATORYCLIA [id number] [address] TSH SerPl-aCncon 10-12-2024 TSH Qn 11.590 m[IU]/L High 0.270-4.200 [facility] Comment on above: Order Comment: Speci men Type: BLOOD SPECIMENOrdering Facility: [facility] Address: [address] [place] [address] Result Comment: If t he patient is , TSH reference range varies by gestational period: First Trimester (weeks 9-12): 0.180-2.990 mIU/L Second Trimester: 0.110-3.980 mIU/L Third Trimester: 0.480-4.710 mIU/L Skyler Ozuna et al. A Practical Approach for the Verifications and Determination of Site- and Trimester-Specific Reference Intervals for Thyroid Function tests in . Thyroid, 2019:29:3:412-420. Dom Nichols, et al. 2017 Guidelines of the [place] Thyroid Association for the Diagnosis and Management of Thyroid Disease during and the . Thyroid, 2017:27:3:315-389. Performed By: #### 2 4323-8, 3016-3 ####GREELEY LABORATORYCLIA [id number] [address] STATES OF [facility] US DVT UPPER LTon 10-12-2024 US DVT UPPER LT * * *Final Report* * * DATE OF EXAM: Oct 12 2024 10:34PM [facility] 1003 - US DVT UPPER LT / PROCEDURE REASON: Arm deep vein thrombosis (DVT), new symptoms * * * * Physician Interpretation * * * * EXAMINATION: LEFT UPPER EXTREMITY DEEP VENOUS ULTRASOUND WITH DOPPLER IMAGING CLINICAL HISTORY: Known deep vein thrombosis. Change in status. TECHNIQUE: Grayscale with compression maneuvers where accessible, color and spectral Doppler of the left internal jugular, subclavian, and axillary veins was performed. Grayscale with compression maneuvers of the left brachial, basilic and cephalic veins was also performed. The contralateral internal jugular and distal subclavian veins were imaged for comparison. Images were obtained and stored in a permanent archive. MQ: [id number] COMPARISON: Ultrasound 09/14/2024. RESULT: LEFT UPPER EXTREMITY DEEP VEINS Internal Jugular vein: Abnormal. Thrombus visualized in the inferior aspect with partial compression. Subclavian vein: Diminished flow. Thrombus visualized. Axillary vein: Diminished flow. Thrombus visualized. Brachial vein: Compression not performed due to proximal thrombus. SUPERFICIAL VEINS Basilic vein: Compression not performed due to proximal thrombus. Flow is identified. Cephalic vein: Not identified. RIGHT UPPER EXTREMITY (FOR COMPARISON) DEEP VEINS Internal Jugular and Distal Subclavian veins: Normal compression, normal spontaneous flow. IMPRESSION: Positive for acute deep vein thrombosis in the LEFT upper extremity involving lower aspect of the LEFT internal jugular vein, LEFT subclavian vein, and LEFT axillary vein. Propagation of thrombus when compared to 09/14/2024 (previously only identified in the LEFT axillary vein). Appears nonocclusive. Nondiagnostic study for superficial thrombophlebitis in the imaged segments of the left upper extremity. URGENT RESULTS Acuity: Urgent Communication: Communicated with KOREY GRANDA on 10/12/2024 11:56 PM via verbal communication. --END OF FINDING-- Drug Safety Coordinator: SNEHAL Transcribe Date/Time: Oct 12 2024 11:47P Dictated by : TAHIR PARIS DO This examination was interpreted and the report reviewed and electronically signed by: TAHIR PARIS DO on Oct 12 2024 11:59PM EST [id number] N Normal [facility] aPTT PPPon 10-12-2024 aPTT Coag (PPP) [Time] 31.4 s Normal 23.0-32.4 [facility] Comment on above: Order Comment: Speci men Type: BLOOD SPECIMENOrdering Facility: [facility] Address: [address] [place] [address] Performed By: #### 3 4528-0, 96933-9 ####LUCAS LABORATORYCLIA [id number] [place] [address] [place] ALLIED HEALTHon 09-29-2024 ALLIED HEALTH HNO ID: [id number] Author: CHAR MAY RT(R) Service: Radiology Author Type: Artificial Glass Eye Maker Type: Allied Health Filed: 09/29/2024 23:30 Note Text: Radiology Service Progress Note PATIENT NAME: Matt Baum DATE OF SERVICE: September 29, 2024 TIME: 11:30 PM PATIENT IDENTITY VERIFICATION COMPLETED USING TWO (2) IDENTIFIERS: Name and Date of confirmed by patient verbally and Name and Date of confirmed by identification band. FALL SCREENING: Has the patient had 2 falls in the last year or 1 fall with injury or currently using an Ambulatory Assistive Device (Walker, Cane, Wheelchair, Crutches, etc.)? Emergency Room Patient: Screened in ED PATIENT GENDER DATA: Male PATIENT RELEVANT IMPLANT DATA REVIEWED: Not Applicable PATIENT PRESENTS WITH AN IMPLANTABLE OR ATTACHED SENIOR AUTOMATION ENGINEER: No RADIOLOGY DEPARTMENT: Ultrasound PERIPHERAL IV DATA: Not applicable SIGNED BY: RT Isiah(R) September 29, 2024 11:[address] [facility] CBC W Auto Differential pane l (Bld)on 09-29-2024 Basophils (Bld) [#/Vol] 10*3/uL Normal <0.11 [facility] Comment on above: Order Comment: Speci men Type: BLOOD SPECIMENOrdering Facility: [facility] Address: [address] [place] [address] Performed By: #### 5 7021-8 ####LUCAS LABORATORYCLIA [id number] [place] [id number] [place] Basophils/100 WBC (Bld) 0.3 % Normal [facility] Comment on above: Order Comment: Speci men Type: BLOOD SPECIMENOrdering Facility: [facility] Address: [address] [place] [address] Performed By: #### 5 7021-8 ####LUCAS LABORATORYCLIA [id number] [place] [address] [place] Differential cell count method Nom (Bld) Auto Normal [facility] Comment on above: Order Comment: Speci men Type: BLOOD SPECIMENOrdering Facility: [facility] Address: [address] [place] [address] Performed By: #### 5 7021-8 ####LUCAS LABORATORYCLIA [id number] [place] [address] [place] Eosinophils (Bld) [#/Vol] 0.03 10*3/uL Normal <0.46 [facility] Comment on above: Order Comment: Speci men Type: BLOOD SPECIMENOrdering Facility: [facility] Address: [address] [place] [address] Performed By: #### 5 7021-8 ####LUCAS LABORATORYCLIA [id number] [address] [place] Eosinophils/100 WBC (Bld) 0.9 % Normal [facility] Comment on above: Order Comment: Speci men Type: BLOOD SPECIMENOrdering Facility: [facility] Address: [address] [place] [address] Performed By: #### 5 7021-8 ####LUCAS LABORATORYCLIA [id number] [address] [place] Erythrocyte distribution width (RBC) [Ratio] 12.3 % Normal 11.5-15.0 [facility] Comment on above: Order Comment: Speci men Type: BLOOD SPECIMENOrdering Facility: [facility] Address: [address] [place] [address] Performed By: #### 5 7021-8 ####LUCAS LABORATORYCLIA [id number] [address] [place] Hematocrit (Bld) [Volume fraction] 38.8 % Normal 36.0-46.0 [facility] Comment on above: Order Comment: Speci men Type: BLOOD SPECIMENOrdering Facility: [facility] Address: [address] [place] [address] Performed By: #### 5 7021-8 ####LUCAS LABORATORYCLIA [id number] [place] [address] [place] [facility] [place] Hemoglobin (Bld) [Mass/Vol] 12.8 g/dL Normal 11.5-15.5 [facility] Comment on above: Order Comment: Speci men Type: BLOOD SPECIMENOrdering Facility: [facility] Address: [address] [place] [address] Performed By: #### 5 7021-8 ####LUCAS LABORATORYCLIA [id number] [place] [address] [place] Immature granulocytes (Bld) [#/Vol] 10*3/uL Normal <0.10 [facility] Comment on above: Order Comment: Speci men Type: BLOOD SPECIMENOrdering Facility: [facility] Address: [address] [place] [address] Performed By: #### 5 7021-8 ####LUCAS LABORATORYCLIA [id number] [address] [place] Immature granulocytes/100 WBC (Bld) 0.3 % Normal [facility] Comment on above: Order Comment: Speci men Type: BLOOD SPECIMENOrdering Facility: [facility] Address: [address] [place] [address] Performed By: #### 5 7021-8 ####LUCAS LABORATORYCLIA [id number] [place] [address] [place] Lymphocytes (Bld) [#/Vol] 1.43 10*3/uL Normal 1.00-4.00 [facility] Comment on above: Order Comment: Speci men Type: BLOOD SPECIMENOrdering Facility: [facility] Address: [address] [place] [address] Performed By: #### 5 7021-8 ####LUCAS LABORATORYCLIA [id number] [place] [id number] [place] Lymphocytes/100 WBC (Bld) 43.6 % Normal [facility] Comment on above: Order Comment: Speci men Type: BLOOD SPECIMENOrdering Facility: [facility] Address: [address] [place] [address] Performed By: #### 5 7021-8 ####LUCAS LABORATORYCLIA [id number] [place] [address] [place] MCH (RBC) [Entitic mass] 29.4 pg Normal 26.0-34.0 [facility] Comment on above: Order Comment: Speci men Type: BLOOD SPECIMENOrdering Facility: [facility] Address: [address] [place] [address] Performed By: #### 5 7021-8 ####LUCAS LABORATORYCLIA [id number] [address] STATES OF [facility] MCHC (RBC) [Mass/Vol] 33.0 g/dL Normal 30.5-36.0 [facility] Comment on above: Order Comment: Speci men Type: BLOOD SPECIMENOrdering Facility: [facility] Address: [address] [place] [address] Performed By: #### 5 7021-8 ####LUCAS LABORATORYCLIA [id number] [address] MCV (RBC) [Entitic vol] 89.0 fL Normal 80.0-100.0 [facility] Comment on above: Order Comment: Speci men Type: BLOOD SPECIMENOrdering Facility: [facility] Address: [address] [place] [address] Performed By: #### 5 7021-8 ####LUCAS LABORATORYCLIA [id number] [address] Monocytes (Bld) [#/Vol] 0.32 10*3/uL Normal <0.87 [facility] Comment on above: Order Comment: Speci men Type: BLOOD SPECIMENOrdering Facility: [facility] Address: [address] [place] [address] Performed By: #### 5 7021-8 ####LUCAS LABORATORYCLIA [id number] [address] Monocytes/100 WBC (Bld) 9.8 % Normal [facility] Comment on above: Order Comment: Speci men Type: BLOOD SPECIMENOrdering Facility: [facility] Address: [address] [place] [address] Performed By: #### 5 7021-8 ####LUCAS LABORATORYCLIA [id number] [place] [address] [place] Neutrophils (Bld) [#/Vol] 1.48 10*3/uL Normal 1.45-7.50 [facility] Comment on above: Order Comment: Speci men Type: BLOOD SPECIMENOrdering Facility: [facility] Address: [address] [place] [address] Performed By: #### 5 7021-8 ####LUCAS LABORATORYCLIA [id number] [address] [place] Neutrophils/100 WBC (Bld) 45.1 % Normal [facility] Comment on above: Order Comment: Speci men Type: BLOOD SPECIMENOrdering Facility: [facility] Address: [address] [place] [address] Performed By: #### 5 7021-8 ####LUCAS LABORATORYCLIA [id number] [place] [address] [place] Nucleated RBC (Bld) [#/Vol] 10*3/uL Normal <0.01 [facility] Comment on above: Order Comment: Speci men Type: BLOOD SPECIMENOrdering Facility: [facility] Address: [address] [place] [address] Performed By: #### 5 7021-8 ####LUCAS LABORATORYCLIA [id number] [address] [place] Nucleated RBC/100 WBC (Bld) [Ratio] 0.0 /[address] [facility] Comment on above: Order Comment: Speci men Type: BLOOD SPECIMENOrdering Facility: [facility] Address: [address] [place] [address] Performed By: #### 5 7021-8 ####LUCAS LABORATORYCLIA [id number] [place] [address] [place] Platelet mean volume (Bld) [Entitic vol] 11.1 fL Normal 9.0-12.7 [facility] Comment on above: Order Comment: Speci men Type: BLOOD SPECIMENOrdering Facility: [facility] Address: [address] [place] [address] Performed By: #### 5 7021-8 ####LUCAS LABORATORYCLIA [id number] [address] [place] Platelets (Bld) [#/Vol] 175 10*3/uL Normal 150-400 [facility] Comment on above: Order Comment: Speci men Type: BLOOD SPECIMENOrdering Facility: [facility] Address: [address] [place] [address] Performed By: #### 5 7021-8 ####LUCAS LABORATORYCLIA [id number] [place] [address] [place] RBC (Bld) [#/Vol] 4.36 10*6/uL Normal 3.90-5.20 [facility] Comment on above: Order Comment: Speci men Type: BLOOD SPECIMENOrdering Facility: [facility] Address: [address] [place] [address] Performed By: #### 5 7021-8 ####LUCAS LABORATORYCLIA [id number] [address] [place] WBC (Bld) [#/Vol] 3.28 10*3/uL Low 3.70-11.00 [facility] Comment on above: Order Comment: Speci men Type: BLOOD SPECIMENOrdering Facility: [facility] Address: [address] [place] [address] Performed By: #### 5 7021-8 ####LUCAS LABORATORYCLIA [id number] [address] OF [facility] Comprehensive metabolic 2000 panelon 09-29-2024 Albumin [Mass/Vol] 4.4 g/dL Normal 3.9-4.9 [facility] Comment on above: Order Comment: Speci men Type: BLOOD SPECIMENOrdering Facility: [facility] Address: [address] [place] [address] Performed By: #### 2 4323-8, 90357-5, 3040-3 ####LUCAS LABORATORYCLIA [id number] [address] [place] ALP [Catalytic activity/Vol] 50 U/L Normal 34-123 [facility] Comment on above: Order Comment: Speci men Type: BLOOD SPECIMENOrdering Facility: [facility] Address: [address] [place] [address] Performed By: #### 2 4323-8, 23257-4, 0-3 ####LUCAS LABORATORYCLIA [id number] [place] [address] [place] ALT [Catalytic activity/Vol] 12 U/L Normal 7-38 [facility] Comment on above: Order Comment: Speci men Type: BLOOD SPECIMENOrdering Facility: [facility] Address: [address] [place] [address] Performed By: #### 2 4323-8, , 0-3 ####LUCAS LABORATORYCLIA [id number] [place] [address] [place] Anion gap [Moles/Vol] 10 mmol/L Normal 8-15 [facility] Comment on above: Order Comment: Speci men Type: BLOOD SPECIMENOrdering Facility: [facility] Address: [address] [place] [address] Performed By: #### 2 4323-8, , 0-3 ####LUCAS LABORATORYCLIA [id number] [place], [place] [address] [place] [address] [place] AST [Catalytic activity/Vol] 14 U/L Normal 13-35 [facility] Comment on above: Order Comment: Speci men Type: BLOOD SPECIMENOrdering Facility: [facility] Address: [address] [place] [address] Performed By: #### 2 4323-8, , 0-3 ####LUCAS LABORATORYCLIA [id number] [place] [address] [place] Bilirubin [Mass/Vol] mg/dL Low 0.2-1.3 [facility] Comment on above: Order Comment: Speci men Type: BLOOD SPECIMENOrdering Facility: [facility] Address: [address] [place] [address] Performed By: #### 2 4323-8, , 0-3 ####LUCAS LABORATORYCLIA [id number] [place] [address] [place] Calcium [Mass/Vol] 9.6 mg/dL Normal 8.5-10.2 [facility] Comment on above: Order Comment: Speci men Type: BLOOD SPECIMENOrdering Facility: [facility] Address: [address] [place] [address] Performed By: #### 2 4323-8, 48027-7, 0-3 ####LUCAS LABORATORYCLIA [id number] [place] [address] [place] Chloride [Moles/Vol] 104 mmol/L Normal 98-107 [facility] Comment on above: Order Comment: Speci men Type: BLOOD SPECIMENOrdering Facility: [facility] Address: [address] [place] [address] Performed By: #### 2 4323-8, , 3039-3 ####GREELEY LABORATORYCLIA [id number] [place] [address] [place] CO2 [Moles/Vol] 26 mmol/L Normal 22-30 [facility] Comment on above: Order Comment: Speci men Type: BLOOD SPECIMENOrdering Facility: [facility] Address: [address] [place] [address] Performed By: #### 2 4323-8, , 0-3 ####GREELEY LABORATORYCLIA [id number] [address] STATES OF [facility] Creatinine [Mass/Vol] 0.91 mg/dL Normal 0.58-0.96 [facility] Comment on above: Order Comment: Speci men Type: BLOOD SPECIMENOrdering Facility: [facility] Address: [address] [place] [address] Performed By: #### 2 4323-8, , 0-3 ####GREELEY LABORATORYCLIA [id number] [address] Creatinine and Glomerular filtration rate.predicted panel (S/P/Bld) 85 mL/min/1.73m??? Normal >=60 [facility] Comment on above: Order Comment: Speci men Type: BLOOD SPECIMENOrdering Facility: [facility] Address: [address] [place] [address] Result Comment: Valarie mated Glomerular Filtration Rate (eGFR) is calculated using the 2020 CKD-EPI creatinine equation. This equation utilizes serum creatinine, sex, and age as parameters. The creatinine assay has traceable calibration to isotope dilution-mass spectrometry. Refer to KDIGO guidelines for clinical interpretation. In patients with unstable renal function, e.g. those with acute kidney injury, the eGFR may not accurately reflect actual GFR. Performed By: #### 2 4323-8, 29768-8, 3039-3 ####GREELEY LABORATORYCLIA [id number] [place] [address] [place] Glucose [Mass/Vol] 93 mg/dL Normal 74-99 [facility] Comment on above: Order Comment: Jose polanco Type: BLOOD SPECIMENOrdering Facility: [facility] Address: [address] [place] [address] Result Comment: The [place] Diabetes Association (ADA) provides guidance for cutoff values for fasting glucose and random glucose. The ADA defines fasting as no caloric intake for at least 8 hours. Fasting plasma glucose results between 100 to 125 mg/dL indicate increased risk for diabetes (prediabetes). Fasting plasma glucose results greater than or equal to 126 mg/dL meet the criteria for diagnosis of diabetes. In the absence of unequivocal hyperglycemia, results should be confirmed by repeat testing. In a patient with classic symptoms of hyperglycemia or hyperglycemic crisis, random plasma glucose results greater than or equal to 200 mg/dL meet the criteria for diagnosis of diabetes. Reference: Standards of Medical Care in Diabetes 2016, [place] Diabetes Association. Diabetes Care. 2016.39(Suppl 1). Performed By: #### 2 4323-8, , 3 ####GREELEY LABORATORYCLIA [id number] [place] [address] [place] Potassium [Moles/Vol] 3.6 mmol/L Low 3.7-5.1 [facility] Comment on above: Order Comment: Jose polanco Type: BLOOD SPECIMENOrdering Facility: [facility] Address: [address] [place] [id number] Performed By: #### 2 4323-8, 06799-5, 3039-3 ####GREELEY LABORATORYCLIA [id number] [place] [address] Protein [Mass/Vol] 6.9 g/dL Normal 6.3-8.0 [facility] Comment on above: Order Comment: Jose polanco Type: BLOOD SPECIMENOrdering Facility: [facility] Address: [address] [place] [address] Performed By: #### 2 4323-8, 12740-8, 3040-3 ####LUCAS LABORATORYCLIA [id number] [place] [id number] [facility] Sodium [Moles/Vol] 140 mmol/L Normal 136-144 [facility] Comment on above: Order Comment: Jose men Type: BLOOD SPECIMENOrdering Facility: [facility] Address: [address] [place] [address] Performed By: #### 2 4323-8, 08365-2, 0-3 ####LUCAS LABORATORYCLIA [id number] [address] Urea nitrogen [Mass/Vol] 14 mg/dL Normal 7-21 [facility] Comment on above: Order Comment: Reshmai men Type: BLOOD SPECIMENOrdering Facility: [facility] Address: [address] [place] [address] Performed By: #### 2 4323-8, 36295-1, 0-3 ####LUCAS LABORATORYCLIA [id number] [place] [id number] [facility] ED PROV NOTEon 09-29-2024 ED PROV NOTE HNO ID: [id number] Author: ALBA NATION MD Service: ? Author Type: Physician Type: ED Provider Notes Filed: 09/30/2024 00:30 Note Text: ED Provider Note Patient Name: Matt Baum : 1990 SERVICE DATE: 09/29/24 History Patient presents with: Abdominal Pain: Pt presents to ER from home for CC right side abd pain since yesterday. Also concerned for possible rash on abd near lovenox injection site. Patient presenting for evaluation secondary to abdominal pain. Patient reports yesterday she had persistent right upper quadrant abdominal pain. Has been associated with some nausea but no vomiting. Patient denies any other associated symptoms. She states that the pain is somewhat less today, but is still been persistent. Patient also was concerned because she is on Lovenox secondary to a left upper extremity DVT and was developing some skin changes on her abdomen. 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 Patient son born with a cyst on the brain. It was surgically removed when he was 6 years old. 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 PE (pulmonary thromboembolism) (HCC) 05/10/2019 05/10/2019 Situational stress 01/31/2020 Vocal cord dysfunction Paradoxical VOCAL CORD DYSFUNCTION PAST SURGICAL HISTORY Procedure Laterality Date APPENDECTOMY TONSILLECTOMY AND ADENOIDECTOMY FAMILY HISTORY Problem Relation Age of Onset Stroke Father Alcohol abuse Father Psychiatry Mother BIPOLAR Thyroid Mother No Known Problems Sister No Known Problems Sister No Known Problems Sister No Known Problems Brother Arthritis Maternal Grandmother Heart Maternal Grandmother Osteoporosis Maternal Grandmother Stroke Maternal Grandmother other (Hypotension) Maternal Grandmother Heart Maternal Grandfather Hypertension Maternal Grandfather Alcohol/Drug Maternal Grandfather Psychiatry Maternal Grandfather BIPOLAR No Known Problems Paternal Grandmother No Known Problems Paternal Grandfather No Known Problems Daughter No Known Problems Daughter other (cyst on brain) Son No Known Problems Son No Ocular Disease No Family History Social History Tobacco Use Smoking status: Never Smokeless tobacco: Never Tobacco comments: No smoking in family Vaping Use Vaping status: Never Used Substance and Sexual Activity Alcohol use: Not Currently Drug use: No Sexual activity: Not on file Comment: not asked ALLERGIES Allergen Reactions Pereira Pepper Anaphylaxis, Other: See Comments Latex Anaphylaxis, Hives Amoxicillin Hives, Swelling Banana Swelling Latex Hives Verified by skin testing Nubain [Nalbuphine * Rash Avocado Itching Carrot Itching [place] And Derivati* Other: See Comments Kiwi Itching Hydroxyzine Other: See Comments Extreme fatigue Omeprazole Other: See Comments nausea Sertraline Other: See Comments Bruising, stopped by hematology 12/3022 Review of Systems Gastrointestinal: Positive for abdominal pain and nausea. Negative for diarrhea and vomiting. Skin: Positive for rash. Physical Exam Vitals [09/29/242114] BP Pulse Temp Temp src Resp SpO2 Weight Height 124/80 68 36.7 ?C (98 ?F) Oral 16 100 % 53.8 kg (118 lb 9.7 oz) -- Physical Exam Vitals and nursing note reviewed. Constitutional: General: She is not in acute distress. Appearance: Normal appearance. She is well-developed. HENT: Head: Normocephalic and atraumatic. Nose: Nose normal. Mouth/Throat: Mouth: Mucous membranes are moist. Eyes: Conjunctiva/sclera: Conjunctivae normal. Pupils: Pupils are equal, round, and reactive to light. Cardiovascular: Rate and Rhythm: Normal rate and regular rhythm. Heart sounds: Normal heart sounds. Comments: Radial pulses 2+ bilaterally Pulmonary: Effort: Pulmonary effort is normal. No respiratory distress. Breath sounds: Normal breath sounds. Abdominal: General: Bowel sounds are normal. There is no distension. Palpations: Abdomen is soft. Tenderness: There is abdominal tenderness in the right upper quadrant and epigastric area. Positive signs include Cason's sign. Negative signs include Rovsing's sign. Musculoskeletal: General: No tenderness. Normal range of motion. Cervical back: Normal range of motion and neck supple. Lymphadenopathy: Cervical: No cervical adenopathy. Skin: General: Skin is warm and dry. Capillary Refill: Capillary refill takes less than 2 seconds. Findings: Rash present. Comments: Small telangiectasias are noted on the patient's abdomen Neurological: Mental Status: She is alert (more content not included)... Normal [facility] HCG QUALITATIVEon 09-29-2024 HCG, QUALITATIVE Negative Normal Negative [facility] Comment on above: Order Comment: Speci men Type: BLOOD SPECIMENOrdering Facility: [facility] Address: [address] [place] [address] [place] [address] Performed By: #### H ####GREELEY LABORATORYCLIA [id number] [place] [address] [place] Lipase SerPl-cCncon 09-29-20 Lipase [Catalytic activity/Vol] 48 U/L Normal 16-61 [facility] Comment on above: Order Comment: Speci men Type: BLOOD SPECIMENOrdering Facility: [facility] Address: [address] [place] [id number] Performed By: #### 2 4323-8, 61951-8, 3039-3 ####GREELEY LABORATORYCLIA [id number] [place] [address] [place] Magnesium SerPl-mCncon 09-29 Magnesium [Mass/Vol] 2.3 mg/dL Normal 1.7-2.3 [facility] Comment on above: Order Comment: Speci men Type: BLOOD SPECIMENOrdering Facility: [facility] Address: [address] [place] [id number] Performed By: #### 2 4323-8, 84670-5, 3 ####GREELEY LABORATORYCLIA [id number] [place] [address] [place] US ABD RIGHT UPPER QUADRANTo n 09-29-2024 US ABD RIGHT UPPER QUADRANT * * *Final Report* * * DATE OF EXAM: Sep 29 2024 11:34PM U 1032 - US ABD RIGHT UPPER QUADRANT / PROCEDURE REASON: RUQ pain, no fever, no elev WBC * * * * Physician Interpretation * * * * EXAMINATION: RIGHT UPPER QUADRANT ULTRASOUND CLINICAL HISTORY: Right upper quadrant pain. The lung disease. TECHNIQUE: Sonography of the right upper quadrant was performed. Images were obtained and stored in a permanent archive. MQ: URUQ_2 COMPARISON: 02/20/2020 RESULT: Pancreas: Normal sonographic appearance. Portions obscured: tail Liver: Echotexture: Normal, homogeneous. Echogenicity: Normal Surface contour: Smooth Lesions: None. Biliary: No intrahepatic biliary duct dilation. CBD: 0.2 cm at the hilum. Gallbladder: Unremarkable. Right Kidney: No hydronephrosis. Ascites: None. IMPRESSION: No acute findings. Drug Safety Coordinator: SNEHAL Transcribe Date/Time: Sep 29 2024 11:49P Dictated by : AIYANA BURGER MD This examination was interpreted and the report reviewed and electronically signed by: AIYANA UBRGER MD on Sep 30 2024 12:18AM EST [id number] N [facility] CNOVSPon 12-16-2024 CNOVSP Normal [facility] CNPNon 09-16-2024 CNPN Normal [facility] CNPNon 09-15-2024 CNPN Normal [facility] TSH SerPl-aCncon 09-15-2024 TSH Qn 16.800 m[IU]/L High 0.270-4.200 [facility] Comment on above: Order Comment: Speci men Type: BLOOD SPECIMENOrdering Facility: [facility] Address: [address] [place] [address] Result Comment: If t he patient is , TSH reference range varies by gestational period:First Trimester (weeks 9-12): 0.180-2.990 mIU/LSecond Trimester: 0.110-3.980 mIU/LThird Trimester: 0.480-4.710 mIU/Jim Ozuna et al. A Practical Approach for the Verifications and Determination of Site- and Trimester-Specific Reference Intervals for Thyroid Function tests in . Thyroid, 2019:29:3:412-420. Dom Nichols, et al. 2017 Guidelines of the [place] Thyroid Association for the Diagnosis and Management of Thyroid Disease during and the . Thyroid, 2017:27:3:315-389. Performed By: #### 3 016-3 ####[facility] LABCLIA [id number] [place] [address] [place] ALLIED HEALTHon 09-14-2024 ALLIED HEALTH HNO ID: [id number] Author: ALEJANDRO CAMP Tech Service: Radiology Author Type: Artificial Glass Eye Maker Type: Allied Health Filed: 09/14/2024 20:50 Note Text: Radiology Service Progress Note PATIENT NAME: Matt Baum DATE OF SERVICE: September 14, 2024 TIME: 8:50 PM PATIENT IDENTITY VERIFICATION COMPLETED USING TWO (2) IDENTIFIERS: Name and Date of confirmed by patient verbally. FALL SCREENING: Has the patient had 2 falls in the last year or 1 fall with injury or currently using an Ambulatory Assistive Device (Walker, Cane, Wheelchair, Crutches, etc.)? Emergency Room Patient: Screened in ED PATIENT GENDER DATA: Female. status: : No status: NO. PATIENT RELEVANT IMPLANT DATA REVIEWED: Not Applicable PATIENT PRESENTS WITH AN IMPLANTABLE OR ATTACHED SENIOR AUTOMATION ENGINEER: No RADIOLOGY DEPARTMENT: Ultrasound PERIPHERAL IV DATA: Not applicable SIGNED BY: Marysol Crespo September 14, 2024 8:50 PM [facility] CNPNon 09-14-2024 CNPN [facility] ED NOTEon 09-14-2024 ED NOTE HNO ID: [id number] Author: VESTA THOMAS RN Service: ? Author Type: Registered Nurse Type: ED Notes Filed: 09/14/2024 22:18 Note Text: Discharge instructions d/w pt at bedside. Stated understanding with no further questions for this nurse. Encouraged f/u with PCP and referring doctors given. Stated understanding. Prescription(S) were given X1. [facility] ED NOTE HNO ID: [id number] Author: VESTA THOMAS RN Service: ? Author Type: Registered Nurse Type: ED Notes Filed: 09/14/2024 21:38 Note Text: Dr. Granda back in at bedside with update and to discuss plan of care. Advised pt and family of results in ED, they agree and verbalize understanding. [facility] ED PROV NOTEon 09-14-2024 ED PROV NOTE HNO ID: [id number] Author: KOREY GRANDA MD Service: Emergency Medicine Author Type: Physician Type: ED Provider Notes Filed: 09/14/2024 22:01 Note Text: ED Provider Note Patient Name: Matt Baum : 1990 SERVICE DATE: 09/14/24 History Patient presents with: Arm Pain: LUE arm pain after snagging her L upper arm/bicep area on a door handle last Thursday. Painful to touch. She presents concerned for a blood clot as she is on eliquis with a hx of clots in the LUE 33-year-old female. History of factor II deficiency. Previous history of blood clot to the upper extremity. Was on Lovenox for extended period of time given she is breast-feeding. Was discontinued of Lovenox in January of this year. Had breakthrough clot in May and was started on Eliquis at that time. Has been on Eliquis and reports missing only 1 dose since being started on in May and that dose was in June. Had an injury to the left upper extremity which she did not think much of it but has worsening pain in the medial aspect of the left upper extremity. Concern for DVT. 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 Patient son born with a cyst on the brain. It was surgically removed when he was 6 years old. 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 PE (pulmonary thromboembolism) (HCC) 05/10/2019 05/10/2019 Situational stress 01/31/2020 Vocal cord dysfunction Paradoxical VOCAL CORD DYSFUNCTION PAST SURGICAL HISTORY Procedure Laterality Date APPENDECTOMY TONSILLECTOMY AND ADENOIDECTOMY FAMILY HISTORY Problem Relation Age of Onset Stroke Father Alcohol abuse Father Psychiatry Mother BIPOLAR Thyroid Mother No Known Problems Sister No Known Problems Sister No Known Problems Sister No Known Problems Brother Arthritis Maternal Grandmother Heart Maternal Grandmother Osteoporosis Maternal Grandmother Stroke Maternal Grandmother other (Hypotension) Maternal Grandmother Heart Maternal Grandfather Hypertension Maternal Grandfather Alcohol/Drug Maternal Grandfather Psychiatry Maternal Grandfather BIPOLAR No Known Problems Paternal Grandmother No Known Problems Paternal Grandfather No Known Problems Daughter No Known Problems Daughter other (cyst on brain) Son No Known Problems Son No Ocular Disease No Family History Social History Tobacco Use Smoking status: Never Smokeless tobacco: Never Tobacco comments: No smoking in family Vaping Use Vaping status: Never Used Substance and Sexual Activity Alcohol use: Not Currently Drug use: No Sexual activity: Not on file Comment: not asked ALLERGIES Allergen Reactions Pereira Pepper Anaphylaxis, Other: See Comments Latex Anaphylaxis, Hives Amoxicillin Hives, Swelling Banana Swelling Latex Hives Verified by skin testing Nubain [Nalbuphine * Rash Avocado Itching Carrot Itching [place]ivati* Other: See Comments Kiwi Itching Hydroxyzine Other: See Comments Extreme fatigue Omeprazole Other: See Comments nausea Sertraline Other: See Comments Bruising, stopped by hematology 12/3022 Review of Systems Constitutional: Negative for chills, diaphoresis, fatigue and fever. HENT: Negative for congestion, ear pain, sinus pain and sore throat. Eyes: Negative for photophobia, pain, redness and visual disturbance. Respiratory: Negative for cough, chest tightness and shortness of breath. Cardiovascular: Negative for chest pain, palpitations and leg swelling. Gastrointestinal: Negative for abdominal distention, abdominal pain, constipation, diarrhea, nausea and vomiting. Genitourinary: Negative for difficulty urinating, dysuria, flank pain, frequency and urgency. Musculoskeletal: Negative for back pain, neck pain and neck stiffness. Left medial arm pain of the left bicep. Skin: Negative for color change, rash and wound. Neurological: Negative for dizziness, syncope, light-headedness and headaches. Psychiatric/Behaviora l: Negative for agitation, behavioral problems and confusion. Physical Exam Vitals [09/14/241942] BP Pulse Temp Temp src Resp SpO2 Weight Height 152/100 67 36.6 ?C (97.8 ?F) Temporal 19 100 % 54 kg (119 lb) 1.626 m (5' 4) Physical Exam Vitals and nursing note reviewed. Constitutional: Appearance: She is well-developed. She is not diaphoretic. HENT: Head: Normocephalic and atraumatic. Right Ear: External ear normal. Left Ear: External ear normal. Eyes: General: No scleral icterus. Right eye: No discharge. Left eye: No discharge. Conjunctiva/sclera: Conjunctivae nor (more content not included)... Normal [facility] ED Triage Noteon 09-14-2024 ED Triage Note HNO ID: [id number] Author: EMY DIAZ DO Service: Emergency Medicine Author Type: Physician Type: ED Triage Notes Filed: 09/14/2024 20:02 Note Text: ED INTAKE NOTE Patient Name: Matt Baum Service Date: 09/14/24 BRIEF HPI: This is a 33 year old female who presents to the ED with: Patient had a crush injury to left upper arm 9 days ago - patient on ELiquis for a DVT left upper extremity and is concerned about worsening BRIEF EXAM: NAD Awake and Alert Non labored breathing BP 152/100 Pulse 67 Temp (Src) 97.8 (Temporal) Resp 19 Ht 5' 4 (1.63m) Wt 119 lb (54.0kg) SpO2 100% LMP 06/15/2024 BMI 20.42 kg/(m2). INITIAL WORKUP AND DECISION MAKING: Orders Placed This Encounter US DVT UPPER LEFT Provider examination performed via virtual platform with assistance from bedside clinician. SIGNATURE: Emy Diaz, [facility] US DVT UPPER LTon 09-14-2024 US DVT UPPER LT * * *Final Report* * * DATE OF EXAM: Sep 14 2024 8:48PM MDU 1003 - US DVT UPPER LT / PROCEDURE REASON: Arm deep vein thrombosis (DVT), new symptoms * * * * Physician Interpretation * * * * EXAMINATION: LEFT UPPER EXTREMITY DEEP VENOUS ULTRASOUND WITH DOPPLER IMAGING CLINICAL HISTORY: History of DVT swelling TECHNIQUE: Grayscale with compression maneuvers where accessible, color and spectral Doppler of the left internal jugular, subclavian, and axillary veins was performed. Grayscale with compression maneuvers of the left brachial, basilic and cephalic veins was also performed. The contralateral internal jugular and distal subclavian veins were imaged for comparison. Images were obtained and stored in a permanent archive. MQ: [email or web address] COMPARISON: 06/24/2024, 08/04/2020 RESULT: LEFT UPPER EXTREMITY DEEP VEINS Internal Jugular vein: Normal compression, normal spontaneous flow. Subclavian vein: Normal, spontaneous flow. Axillary vein: Abnormal, incomplete compression, normal spontaneous flow. Brachial vein: Not performed due to proximal thrombus SUPERFICIAL VEINS Basilic vein: Not performed due to proximal thrombus Cephalic vein: Nonvisualized RIGHT UPPER EXTREMITY (FOR COMPARISON) DEEP VEINS Internal Jugular and Distal Subclavian veins: Normal compression, normal spontaneous flow. IMPRESSION: Positive study for acute DVT in the left upper extremity. Nondiagnostic study for superficial thrombophlebitis in the imaged segments of the left upper extremity. Drug Safety Coordinator: PSCB Transcribe Date/Time: Sep 14 2024 9:14P Dictated by : MIKA RAINEY MD This examination was interpreted and the report reviewed and electronically signed by: MIKA RAINEY MD on Sep 14 2024 9:21PM EST [id number] N [facility] 09-06-2024 [facility] 08-30-2024 [facility] 08-04-2024 [facility] HNO ID: [id number] Author: ALEJANDRO CAMP Tech Service: Radiology Author Type: Artificial Glass Eye Maker Type: Allied Health Filed: 08/04/2024 23:27 Note Text: Radiology Service Progress Note PATIENT NAME: Matt Baum DATE OF SERVICE: August 04, 2024 TIME: 11:27 PM PATIENT IDENTITY VERIFICATION COMPLETED USING TWO (2) IDENTIFIERS: Name and Date of confirmed by patient verbally. FALL SCREENING: Has the patient had 2 falls in the last year or 1 fall with injury or currently using an Ambulatory Assistive Device (Walker, Cane, Wheelchair, Crutches, etc.)? Emergency Room Patient: Screened in ED PATIENT GENDER DATA: Female PATIENT RELEVANT IMPLANT DATA REVIEWED: Not Applicable PATIENT PRESENTS WITH AN IMPLANTABLE OR ATTACHED SENIOR AUTOMATION ENGINEER: No RADIOLOGY DEPARTMENT: Ultrasound PERIPHERAL IV DATA: Not applicable SIGNED BY: Marysol Crespo August 04, 2024 11:27 PM [facility] ED NOTEon 08-04-2024 ED NOTE HNO ID: [id number] Author: WINSOME JEFFERSON RN Service: ? Author Type: Registered Nurse Type: ED Notes Filed: 08/04/2024 23:44 Note Text: Patient discharged, given verbal and written discharge instructions. Patient verbalized understanding. Nurse discussed follow up appointments and signs/symptoms of worsening conditions, and reasons why to come back to the emergency department. [facility] ED PROV NOTEon 08-04-2024 ED PROV NOTE HNO ID: [id number] Author: KOREY GRANDA MD Service: Emergency Medicine Author Type: Physician Type: ED Provider Notes Filed: 08/04/2024 23:43 Note Text: ED Provider Note Patient Name: Matt Baum : 1990 SERVICE DATE: 08/04/24 History Patient presents with: Arm Pain: Pt ambulates to room with c/o left arm and armpit discomfort. Pt had blood clot in that arm in May and was scared it is back. Pt takes Eliquis, and she denies redness or swelling. 33-year-old female. Coming in today for left arm pain. She is concerned for the possibility of recurrence of DVT of the left upper extremity. Reports that she was diagnosed with this previously. Reports over the last month or so she may have missed a couple of doses of blood thinner but otherwise has been consistent. Denies any chest pain or shortness of breath. 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 Patient son born with a cyst on the brain. It was surgically removed when he was 6 years old. 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 PE (pulmonary thromboembolism) (HCC) 05/10/2019 05/10/2019 Situational stress 01/31/2020 Vocal cord dysfunction Paradoxical VOCAL CORD DYSFUNCTION PAST SURGICAL HISTORY Procedure Laterality Date APPENDECTOMY TONSILLECTOMY AND ADENOIDECTOMY FAMILY HISTORY Problem Relation Age of Onset Stroke Father Alcohol abuse Father Psychiatry Mother BIPOLAR Thyroid Mother No Known Problems Sister No Known Problems Sister No Known Problems Sister No Known Problems Brother Arthritis Maternal Grandmother Heart Maternal Grandmother Osteoporosis Maternal Grandmother Stroke Maternal Grandmother other (Hypotension) Maternal Grandmother Heart Maternal Grandfather Hypertension Maternal Grandfather Alcohol/Drug Maternal Grandfather Psychiatry Maternal Grandfather BIPOLAR No Known Problems Paternal Grandmother No Known Problems Paternal Grandfather No Known Problems Daughter No Known Problems Daughter other (cyst on brain) Son No Known Problems Son No Ocular Disease No Family History Social History Tobacco Use Smoking status: Never Smokeless tobacco: Never Tobacco comments: No smoking in family Vaping Use Vaping status: Never Used Substance and Sexual Activity Alcohol use: Not Currently Drug use: No Sexual activity: Not on file Comment: not asked ALLERGIES Allergen Reactions Pereira Pepper Anaphylaxis, Other: See Comments Latex Anaphylaxis, Hives Amoxicillin Hives, Swelling Banana Swelling Latex Hives Verified by skin testing Nubain [Nalbuphine * Rash Avocado Itching Carrot Itching [place] And Derivati* Other: See Comments Kiwi Itching Hydroxyzine Other: See Comments Extreme fatigue Omeprazole Other: See Comments nausea Sertraline Other: See Comments Bruising, stopped by hematology 12/3022 Review of Systems Constitutional: Negative for chills, diaphoresis, fatigue and fever. HENT: Negative for congestion, ear pain, sinus pain and sore throat. Eyes: Negative for photophobia, pain, redness and visual disturbance. Respiratory: Negative for cough, chest tightness and shortness of breath. Cardiovascular: Negative for chest pain, palpitations and leg swelling. Gastrointestinal: Negative for abdominal distention, abdominal pain, constipation, diarrhea, nausea and vomiting. Genitourinary: Negative for difficulty urinating, dysuria, flank pain, frequency and urgency. Musculoskeletal: Negative for back pain, neck pain and neck stiffness. Left arm pain Skin: Negative for color change, rash and wound. Neurological: Negative for dizziness, syncope, light-headedness and headaches. Psychiatric/Behaviora l: Negative for agitation, behavioral problems and confusion. Physical Exam Vitals [08/04/24 2220] BP Pulse Temp Temp src Resp SpO2 Weight Height 142/64 77 36.8 ?C (98.2 ?F) Oral 16 100 % 54 kg (119 lb) -- Physical Exam Vitals and nursing note reviewed. Constitutional: Appearance: She is well-developed. She is not diaphoretic. HENT: Head: Normocephalic and atraumatic. Right Ear: External ear normal. Left Ear: External ear normal. Eyes: General: No scleral icterus. Right eye: No discharge. Left eye: No discharge. Conjunctiva/sclera: Conjunctivae normal. Pupils: Pupils are equal, round, and reactive to light. Neck: Vascular: No JVD. Trachea: No tracheal deviation. Cardiovascular: Rate and Rhythm: Normal rate and regular rhythm. Heart sounds: Normal heart sounds. No murmur heard. No friction rub. No gallop. Pulmo (more content not included)... Normal [facility] DVT UPPER LTon 08-04-2024 DVT UPPER LT * * *Final Report* * * DATE OF EXAM: Aug 04 2024 11:25PM MDU 1003 - US DVT UPPER LT / PROCEDURE REASON: Arm deep vein thrombosis (DVT), new symptoms * * * * Physician Interpretation * * * * LEFT UPPER EXTREMITY VENOUS DOPPLER INDICATION: Arm deep vein thrombosis (DVT), new symptoms PROCEDURE: Real-time ultrasound was performed of the left upper extremity utilizing spectral and color Doppler with compression and augmentation techniques. FINDINGS: Normal compressibility, color Doppler flow response to augmentation involving the internal jugular, axillary and brachial veins. Normal-appearing color Doppler signal in the subclavian vein. The contralateral internal jugular vein images normally. The visualized cephalic and basilic veins exhibit normal compressibility and color Doppler flow. IMPRESSION: No left upper extremity deep venous thrombus. Drug Safety Coordinator: SNEHAL Transcribe Date/Time: Aug 04 2024 11:35P Dictated by : SANYA GARCIA MD This examination was interpreted and the report reviewed and electronically signed by: SANYA GARCIA MD on Aug 04 2024 11:35PM EST [id number] [facility] ALGN BANANA IGEon 01-26-2024 Banana IgE Qn (S) kU/l NINF - 0.3 5 kU/l [facility] ALGN CARROT IGEon 01-26-2024 Carrot IgE Qn (S) kU/l NINF - 0.3 5 kU/l [facility] ALGN KIWI IGEon 01-26-2024 Kiwifruit IgE Qn (S) NINF [facility] Kiwifruit IgE RAST class (S) Class 0 Class 0 [facility] ALGN LATEX IGEon 01-26-2024 Latex IgE Qn (S) kU/l NINF - 0.35 kU/l [facility] Latex IgE RAST class (S) Class 0 Class 0 [facility] Banana IgE Qn (S)on 01-26-20 24 Banana IgE RAST class (S) Class 0 Class 0 [facility] Carrot IgE Qn (S)on 01-26-20 24 Carrot IgE RAST class (S) Class 0 Class 0 [facility] No Panel Informationon 01-25 Interpretation and review of laboratory results Normal [facility] TRYPTASE BLOODon 01-26-2024 Interpretation and review of laboratory results Normal [facility] Tryptase [Mass/Vol] 4.0 ug/L NINF - 8 .4 ug/L [facility] C3 COMPLEMENTon 01-25-2024 Complement C3 [Mass/Vol] 99 mg/dL 86 - 166 mg/dL [facility] C4 COMPLEMENTon 01-25-2024 Complement C4 [Mass/Vol] 12 mg/dL Low 13 - 46 mg/dL [facility] Complement C3 [Mass/Vol]on 0 01-25-2024 Interpretation and review of laboratory results Normal [facility] Complement C4 [Mass/Vol]on 0 01-25-2024 Interpretation and review of laboratory results Abnormal [facility] No Panel Informationon 01-24 [facility] URINE OB DIP B/Oon 2 Glucose Ql (U) Negative Neg mg/dL [facility] Protein.monoclonal (U) [Mass/Vol] Negative Neg mg/dL [facility] URINE OB DIP B/Oon 2 Glucose Ql (U) Negative Neg mg/dL [facility] Protein.monoclonal (U) [Mass/Vol] Negative Neg mg/dL [facility] UA DIP, URINE (POC)on 2021 BILIRUBIN UA (POCT) Negative Negative [facility] CLARITY UA (POCT) Clear [facility] COLOR UA (POCT) Yellow [facility] GLUCOSE UA (POCT) Negative Negative mg/dL [facility] HEMOGLOBIN/BLOOD UA (POCT) Negative Negative [facility] KETONE UA (POCT) Negative Negative mg/dL [facility] LEUKOCYTES UA (POCT) Negative Negative [facility] NITRITE UA (POCT) Negative Negative [facility] PH UA (POCT) 6.5 4.5 - 8.0 [facility] Protein Ql (U) Negative Negative mg/dL [facility] SPECIFIC GRAVITY UA (POCT) <=1.005 Abnormal 1.005 - 1.030 [facility] UROBILINOGEN UA (POCT) 0.2 E.U./dL Normal E.U./dL [facility] URINE OB DIP B/Oon 2 Glucose Ql (U) Negative Neg mg/dL [facility] Protein.monoclonal (U) [Mass/Vol] Negative Neg mg/dL [facility] (ROM) Rupture Of Membraneson 03-12-2022 ROM Negative Normal Negative [facility] Comment on above: Result Comment: Amni otic fluid not present indicates No Rupture of Membranes at time of specimen collection. Performed By: #### L 205.1000 #### [facility] [address] [place], [address] Urinalysis, Completeon 03-12 BACTERIA 1+ /hpf Normal None Seen [facility] Comment on above: Order Comment: VANESSA CTOR TO SPECIFY Performed By: #### L 400.0001 #### [facility] [address] [place], [address] EPI,SQUAMOUS 0 SEEN Normal 5-10 [facility] Comment on above: Order Comment: COLLE CTOR TO SPECIFY Performed By: #### L [id number] #### [facility] [address] [place], [address] Mucus Ql (Urine sed) 0 SEEN Normal [facility] Comment on above: Order Comment: VANESSA CTOR TO SPECIFY Performed By: #### L 400.0001 #### [facility] [address] [place], [address] RBC 0 SEEN Normal 0-5 [facility] Comment on above: Order Comment: VANESSA CTOR TO SPECIFY Performed By: #### L [id number] #### [facility] [address] [place], [address] WBC 0 SEEN Normal 0-5 [facility] Comment on above: Order Comment: VANESSA CTOR TO SPECIFY Performed By: #### L [id number] #### [facility] [address] [place], [address] Basophil percentageon 2021 Basophil percentage 0 SEEN /hpf [facility] Work Phone: Bilirubin Test strip Ql (U)o n 03-11-2022 Bilirubin Ql (U) Negative Negative [facility] Work Phone: Ketones Test strip Ql (U)on 03-11-2022 Ketones Ql (U) Negative Negative [facility] Work Phone: Mucus LM Ql (Urine sed)on Mucus Ql (Urine sed) 0 SEEN /hpf [facility] Work Phone: Nitrite Test strip Ql (U)on 03-11-2022 Nitrite Ql (U) Negative Negative [facility] Work Phone: No Panel Informationon 03-11 Vaginal Amniotic Fluid Detection Negative Negative [facility] Work Phone: Comment on above: Amniotic fluid not p resent indicates No Rupture of FetalMembranes at time of specimen collection. Protein Test strip Ql (U)on 03-11-2022 Protein Ql (U) Negative Negative [facility] Work Phone: Squamous epithelial cells de tection in urine sediment by light microscopyon 03-11-2022 Epithelial cells.squamous LM Ql (Urine sed) 0 SEEN /hpf [facility] Work Phone: Urine blood detectionon RBC Ql (U) Negative Negative [facility] Work Phone: RBC Ql (U) 0 SEEN /hpf [facility] Work Phone: Urine clarityon 03-11-2022 Clarity (U) Clear Clear [facility] Work Phone: Urine color determinationon 03-11-2022 Color (U) Yellow Yellow [facility] Work Phone: Urine glucose detectionon Glucose Ql (U) Normal mg/dl Normal [facility] Work Phone: Urine leukocyte esterase det ection by dipstickon 03-11-2022 Leukocyte esterase Test strip Ql (U) Negative Negative [facility] Work Phone: Urine pHon 03-11-2022 pH (U) 7.0 [pH] [facility] Work Phone: Urine sediment bacteria coun t by microscopy (number/high power field)on 03-11-2022 Bacteria LM.HPF (Urine sed) [#/Area] 1 /[HPF] None Seen [facility] Work Phone: Urine specific gravity measu rementon 03-11-2022 Specific gravity (U) [Rel density] 1.010 [facility] Work Phone: Urobilinogen Auto test strip Ql (U)on 03-11-2022 Urobilinogen Ql (U) Normal mg/dl Normal [facility] Work Phone: OBSTETRIC ULTRASOUND WHIon 0 03-05-2022 [facility] URINE OB DIP B/Oon Glucose Ql (U) Negative Neg mg/dL [facility] Protein.monoclonal (U) [Mass/Vol] Negative Neg mg/dL [facility] AST(SGOT)on 02-24-2022 AST [Catalytic activity/Vol] 15 U/L Normal 15-37 [facility] Comment on above: Performed By: #### L 501.4100, L100.0500, L501.0900, L501.1400, L501.1105, L501.4405 #### [facility] [address] [place], [place], [id number] Alanine Aminotransferas (SGP T)on 02-24-2022 ALT [Catalytic activity/Vol] 30 U/L Normal 13-56 [facility] Comment on above: Performed By: #### L 501.4100, L100.0500, L501.0900, L501.1400, L501.1105, L501.4405 #### [facility] [address] [place], [address] Basophil percentageon 2021 WBC (Bld) [#/Vol] 7.7 10*3/uL 4.4-11.0 [facility] Work Phone: Blood erythrocytes count (nu mber/volume)on 02-24-2022 RBC (Bld) [#/Vol] 3.89 10*6/uL 4.2-5.4 [facility] Work Phone: Blood hemoglobin measurement (mass/volume)on 02-24-2022 Hemoglobin (Bld) [Mass/Vol] 10.0 g/dL 12.0-15.0 [facility] Work Phone: Blood platelet mean volumeon 02-24-2022 Platelet mean volume (Bld) [Entitic vol] 12.0 fL 6.2-12.0 [facility] Work Phone: CBC-Complete Blood Cnt No Di ffon 02-24-2022 Erythrocyte distribution width (RBC) [Ratio] 14.7 % High 11.6-14.6 [facility] Comment on above: Performed By: #### L 501.4100, L100.0500, L501.0900, L501.1400, L501.1105, L501.4405 #### [facility] [address] [place], [address] Hematocrit (Bld) [Volume fraction] 32.4 % Low 37-47 [facility] Comment on above: Performed By: #### L 501.4100, L100.0500, L501.0900, L501.1400, L501.1105, L501.4405 #### [facility] [address] [place], [address] Hemoglobin (Bld) [Mass/Vol] 10.0 g/dL Low 12.0-15.0 [facility] Comment on above: Performed By: #### L 501.4100, L100.0500, L501.0900, L501.1400, L501.1105, L501.4405 #### [facility] [address] [place], [address] MCH (RBC) [Entitic mass] 25.7 pg Low 27.0-32.0 [facility] Comment on above: Performed By: #### L 501.4100, L100.0500, L501.0900, L501.1400, L501.1105, L501.4405 #### [facility] [address] [place], [address] MCHC (RBC) [Mass/Vol] 30.9 g/dL Low 32-36 [facility] Comment on above: Performed By: #### L 501.4100, L100.0500, L501.0900, L501.1400, L501.1105, L501.4405 #### [facility] [address] [place], [address] MCV (RBC) [Entitic vol] 83.3 fL Normal 81-99 [facility] Comment on above: Performed By: #### L 501.4100, L100.0500, L501.0900, L501.1400, L501.1105, L501.4405 #### [facility] [address] [place], [address] Platelet mean volume (Bld) [Entitic vol] 12.0 fL Normal 6.2-12.0 [facility] Comment on above: Performed By: #### L 501.4100, L100.0500, L501.0900, L501.1400, L501.1105, L501.4405 #### [facility] [address] [place], [address] Platelets (Bld) [#/Vol] 151 10*3/uL Normal 150-450 [facility] Comment on above: Performed By: #### L 501.4100, L100.0500, L501.0900, L501.1400, L501.1105, L501.4405 #### [facility] [address] [place], [address] RBC (Bld) [#/Vol] 3.89 10*6/uL Low 4.2-5.4 [facility] Comment on above: Performed By: #### L 501.4100, L100.0500, L501.0900, L501.1400, L501.1105, L501.4405 #### [facility] [address] [place], [address] RDW SD 40.3 fl Normal 35.1-43.9 [facility] Comment on above: Performed By: #### L 501.4100, L100.0500, L501.0900, L501.1400, L501.1105, L501.4405 #### [facility] [address] [place], [place], [id number] WBC (Bld) [#/Vol] 7.7 10*3/uL Normal 4.4-11.0 [facility] Comment on above: Performed By: #### L 501.4100, L100.0500, L501.0900, L501.1400, L501.1105, L501.4405 #### [facility] [address] [place], [address] Determination of erythrocyte mean corpuscular volume (MCV)on 02-24-2022 MCV (RBC) [Entitic vol] 83.3 fL 81-99 [facility] Work Phone: Hematocrit Auto (Bld) [Volum e fraction]on 02-24-2022 Hematocrit (Bld) [Volume fraction] 32.4 % 37-47 [facility] Work Phone: Laboratory - Chemistry and C hemistry - challengeon 02-24-2022 ALT [Catalytic activity/Vol] 30 U/L 13-56 [facility] Work Phone: Laboratory - Hematology and Cell countson 02-24-2022 Erythrocyte distribution width (RBC) [Entitic vol] 40.3 fL 35.1-43.9 [facility] Work Phone: Erythrocyte distribution width (RBC) [Ratio] 14.7 % 11.6-14.6 [facility] Work Phone: MCH (RBC) [Entitic mass] 25.7 pg 27.0-32.0 [facility] Work Phone: MCHC Auto (RBC) [Mass/Vol]on 02-24-2022 MCHC (RBC) [Mass/Vol] 30.9 g/dL 32-36 [facility] Work Phone: No Panel Informationon 02-24 Estimated Creatinine Clearance Calc 111.45 ml/min [facility] Work Phone: Estimated GFR (MDRD) Amer 144 mL/min >60 [facility] Work Phone: Comment on above: GFR Calc Estimated GFR (MDRD) Non-Af Amer 119 mL/min >60 [facility] Work Phone: Comment on above: Non- GFR Calc Platelets bldon 02-24-2022 Platelets (Bld) [#/Vol] 151 10*3/uL 150-450 [facility] Work Phone: Protein+Creatinine Ratio,Uri neon 02-24-2022 PROT:CRE RATIO 140 mg/g CRE Normal 0-200 [facility] Comment on above: Performed By: #### L 501.4100, L100.0500, L501.0900, L501.1400, L501.1105, L501.4405 #### [facility] [address] [place], [address] Protein (U) [Mass/Vol] 6.8 mg/dL Normal <11.9 [facility] Comment on above: Performed By: #### L 501.4100, L100.0500, L501.0900, L501.1400, L501.1105, L501.4405 #### [facility] [address] [place], [address] UR CREAT 48.50 mg/dL Normal NO RANGE EST. [facility] Comment on above: Performed By: #### L 501.4100, L100.0500, L501.0900, L501.1400, L501.1105, L501.4405 #### [facility] [address] [place], [address] Serum Creatinine AND GFRon 0 02-24-2022 Creatinine [Mass/Vol] 0.62 mg/dL Normal 0.55-1.02 [facility] Comment on above: Result Comment: The validity of the calculated GFR GFRAA in patients over 70 years has not been determined. Clinical correlation is essential. Performed By: #### L 501.4100, L100.0500, L501.0900, L501.1400, L501.1105, L501.4405 #### [facility] [address] [place], [place], [id number] ECRCL 111.45 ml/min Normal [facility] Comment on above: Performed By: #### L 501.4100, L100.0500, L501.0900, L501.1400, L501.1105, L501.4405 #### [facility] [address] [place], [place], [id number] EST GFR - AA 144 mL/min Normal >60 [facility] Comment on above: Result Comment: Afri can Citizen [place] GFR Calc Performed By: #### L 501.4100, L100.0500, L501.0900, L501.1400, L501.1105, L501.4405 #### [facility] [address] [place], [address] GFR/1.73 sq M.predicted among non-blacks MDRD (S/P/Bld) [Vol rate/Area] 119 mL/min/{1.73_m2} Normal >60 [facility] Comment on above: Result Comment: Non- GFR Calc Performed By: #### L 501.4100, L100.0500, L501.0900, L501.1400, L501.1105, L501.4405 #### [facility] [address] [place], [place], [id number] Serum or plasma creatinine m easurement (mass/volume)on 02-24-2022 Creatinine [Mass/Vol] 0.62 mg/dL 0.55-1.02 [facility] Work Phone: Comment on above: The validity of the calculated GFR & GFRAA in patients over 70 years has not been determined. Clinical correlation is essential. Serum or plasma uric acid me asurement (mass/volume)on 02-24-2022 Urate [Mass/Vol] 3.9 mg/dL 2.6-6.0 [facility] Work Phone: Comment on above: The drugs N-Acetylcy steine and Metamizole may falsely depress this assay. Thin prep Papanicolaou smear with manual screeningon 02-24-2022 Thin prep Papanicolaou smear with manual screening 15 U/L 15-37 [facility] Work Phone: Uric Acidon 02-24-2022 URIC 3.9 mg/dL Normal 2.6-6.0 [facility] Comment on above: Result Comment: The drugs N-Acetylcysteine and Metamizole may falsely depress this assay. Performed By: #### L 501.4100, L100.0500, L501.0900, L501.1400, L501.1105, L501.4405 #### [facility] [address] [place], [address] Urine creatinine measurement (mass/volume)on 02-24-2022 Creatinine (U) [Mass/Vol] 48.50 mg/dL NO RANGE EST. [facility] Work Phone: Urine protein measurement (m ass/volume)on 02-24-2022 Protein (U) [Mass/Vol] 6.8 mg/dL 0.0-11.8 [facility] Work Phone: Urine protein/creatinine mas s ratioon 02-24-2022 Protein/Creatinine (U) [Mass ratio] 140 mg/g CRE 0-200 [facility] Work Phone: URINE CULTUREon 02-20-2022 Bacteria identified Cx Nom (U) <10,000 CFU/ml Mixed microbiota Abnormal [facility] URINE OB DIP B/Oon 2 Glucose Ql (U) Negative Neg mg/dL [facility] Protein.monoclonal (U) [Mass/Vol] Negative Neg mg/dL [facility] URINE OB DIP B/Oon 2 Glucose Ql (U) Negative Neg mg/dL [facility] Protein.monoclonal (U) [Mass/Vol] Negative Neg mg/dL [facility] Vital Signs Date Time Vital Sign Value Performing Clinician Facility 05-22-2025 14:39-0400 Body temperature 97.81 [degF] Treatment [facility] Work Phone: [facility] 05-22-2025 14:39-0400 Diastolic blood pressure 78 mm[Hg] Treatment [facility] Work Phone: [facility] 05-22-2025 14:39-0400 Heart rate 76 /min [facility] Work Phone: [facility] 05-22-2025 14:39-0400 Respiratory rate 18 /min [facility] Work Phone: [facility] 05-22-2025 14:39-0400 SaO2% (BldA) [Mass fraction] 98 % [facility] Work Phone: [facility] 05-22-2025 14:39-0400 Systolic blood pressure 118 mm[Hg] Treatment [facility] Work Phone: [facility] 05-19-2025 09:31-0400 Body temperature 98.49 [degF] Treatment [facility] Work Phone: [facility] 05-19-2025 09:31-0400 Diastolic blood pressure 72 mm[Hg] Treatment [facility]str Work Phone: [facility] 05-19-2025 09:31-0400 Heart rate 70 /min Treatment [facility] Work Phone: [facility] 05-19-2025 09:31-0400 SaO2% (BldA) [Mass fraction] 100 % [facility] Work Phone: [facility] 05-19-2025 09:31-0400 Systolic blood pressure 109 mm[Hg] Treatment [facility]str Work Phone: [facility] 05-17-2025 11:00-0400 Body temperature 98.4 [degF] Treatment [facility]str Work Phone: [facility] 05-17-2025 11:00-0400 Diastolic blood pressure 64 mm[Hg] Treatment [facility]str Work Phone: [facility] 05-17-2025 11:00-0400 Heart rate 84 /min Treatment [facility] Work Phone: [facility] 05-17-2025 11:00-0400 Systolic blood pressure 97 mm[Hg] Treatment [facility]str Work Phone: [facility] 05-16-2025 12:26-0400 Diastolic blood pressure 71 mm[Hg] Praful Guajardo MD Work Phone: [facility] 05-16-2025 12:26-0400 Heart rate 71 /min Praful Guajardo MD Work Phone: [facility] 05-16-2025 12:26-0400 SaO2% (BldA) [Mass fraction] 100 % Praful Guajardo MD Work Phone: [facility] 05-16-2025 12:26-0400 Systolic blood pressure 118 mm[Hg] Praful Guajardo MD Work Phone: [facility] 05-08-2025 08:03-0400 Body temperature 97.9 [degF] Treatment [facility]str Work Phone: [facility] 05-08-2025 08:03-0400 Diastolic blood pressure 71 mm[Hg] Treatment [facility]str Work Phone: [facility] 05-08-2025 08:03-0400 Heart rate 79 /min Treatment [facility]str Work Phone: [facility] 05-08-2025 08:03-0400 SaO2% (BldA) [Mass fraction] 99 % Treatment [facility]str Work Phone: [facility] 05-08-2025 08:03-0400 Systolic blood pressure 105 mm[Hg] Treatment [facility]str Work Phone: [facility] 04-04-2025 11:26-0400 Body height 161.3 cm Ann EVERETT-C Work Phone: [facility] 04-04-2025 11:26-0400 Body mass index (BMI) [Ratio] 20.92 kg/m2 Ann Dickinson PA-C Work Phone: [facility] 04-04-2025 11:26-0400 Body temperature 97.7 [degF] Ann Rudert PA-C Work Phone: [facility] 04-04-2025 11:26-0400 Body weight 54.43 kg Ann Rudert PA-C Work Phone: [facility] 04-04-2025 11:26-0400 Diastolic blood pressure 68 mm[Hg] Ann Rudert PA-C Work Phone: [facility] 04-04-2025 11:26-0400 Heart rate 77 /min Ann Rudert PA-C Work Phone: [facility] 04-04-2025 11:26-0400 SaO2% (BldA) [Mass fraction] 96 % Ann Rudert PA-C Work Phone: [facility] 04-04-2025 11:26-0400 Systolic blood pressure 114 mm[Hg] Ann Rudert PA-C Work Phone: [facility] 02-28-2025 15:07-0400 Diastolic blood pressure 71 mm[Hg] Praful Guajardo MD Work Phone: [facility] 02-28-2025 15:07-0400 Heart rate 76 /min Praful Guajardo MD Work Phone: [facility] 02-28-2025 15:07-0400 Systolic blood pressure 110 mm[Hg] Praful Guajardo MD Work Phone: [facility] 02-15-2025 08:31-0400 Body mass index (BMI) [Ratio] 20.76 kg/m2 Ravinder Duncan APRN.DIRECTOR OF PUBLICATIONS Work Phone: [facility] 02-15-2025 08:31-0400 Body temperature 98.8 [degF] Ravinder Duncan APRN.DIRECTOR OF PUBLICATIONS Work Phone: [facility] 02-15-2025 08:31-0400 Body weight 54 kg Ravinder Duncan APRN.DIRECTOR OF PUBLICATIONS Work Phone: [facility] 02-15-2025 08:31-0400 Diastolic blood pressure 64 mm[Hg] Ravinder Pendlebury SANITATION OFFICER.DIRECTOR OF PUBLICATIONS Work Phone: [facility] 02-15-2025 08:31-0400 Heart rate 104 /min [facility] SANITATION OFFICER.DIRECTOR OF PUBLICATIONS Work Phone: [facility] 02-15-2025 08:31-0400 Respiratory rate 16 /min [facility]inder [facility] SANITATION OFFICER.DIRECTOR OF PUBLICATIONS Work Phone: [facility] 02-15-2025 08:31-0400 SaO2% (BldA) [Mass fraction] 96 % [facility] SANITATION OFFICER.DIRECTOR OF PUBLICATIONS Work Phone: [facility] 02-15-2025 08:31-0400 Systolic blood pressure 112 mm[Hg] [facility] SANITATION OFFICER.DIRECTOR OF PUBLICATIONS Work Phone: [facility] 01-31-2025 11:22-0400 Body mass index (BMI) [Ratio] 20.4 kg/m2 Maria M Masci DO Work Phone: [facility] 01-31-2025 11:22-0400 Body temperature 98.29 [degF] Maria M Masci DO Work Phone: [facility] 01-31-2025 11:22-0400 Body weight 53.07 kg Maria M Masci DO Work Phone: [facility] 01-31-2025 11:22-0400 Diastolic blood pressure 68 mm[Hg] Maria M Masci DO Work Phone: [facility] 01-31-2025 11:22-0400 Heart rate 111 /min Maria M Masci DO Work Phone: [facility] 01-31-2025 11:22-0400 SaO2% (BldA) [Mass fraction] 99 % Maria M Masci DO Work Phone: [facility] 01-31-2025 11:22-0400 Systolic blood pressure 103 mm[Hg] Maria M Masci DO Work Phone: [facility] 12-01-2024 14:05-0500 Body height 161.3 cm Jonny Terrazas MD Work Phone: [facility] 12-01-2024 14:05-0500 Body mass index (BMI) [Ratio] 20.75 kg/m2 Jonny Terrazas MD Work Phone: [facility] 12-01-2024 14:05-0500 Body weight 53.98 kg Jonny Terrazas MD Work Phone: [facility] 12-01-2024 14:05-0500 Diastolic blood pressure 78 mm[Hg] Jonny Terrazas MD Work Phone: [facility] 12-01-2024 14:05-0500 Systolic blood pressure 110 mm[Hg] Jonny Terrazas MD Work Phone: [facility] 11-30-2024 14:34-0500 Body height 161.3 cm Ann Rudert PA-C Work Phone: [facility] 11-30-2024 14:34-0500 Body mass index (BMI) [Ratio] 21.1 kg/m2 Ann Rudert PA-C Work Phone: [facility] 11-30-2024 14:34-0500 Body temperature 98.01 [degF] Ann Rudert PA-C Work Phone: [facility] 11-30-2024 14:34-0500 Body weight 54.88 kg Ann Rudert PA-C Work Phone: [facility] 11-30-2024 14:34-0500 Diastolic blood pressure 68 mm[Hg] Ann Rudert PA-C Work Phone: [facility] 11-30-2024 14:34-0500 Heart rate 87 /min Ann Rudert PA-C Work Phone: [facility] 11-30-2024 14:34-0500 SaO2% (BldA) [Mass fraction] 97 % Ann Rudert PA-C Work Phone: [facility] 11-30-2024 14:34-0500 Systolic blood pressure 100 mm[Hg] Ann Rudert PA-C Work Phone: [facility] 11-21-2024 16:11-0500 Body mass index (BMI) [Ratio] 21.44 kg/m2 Diane Roberto SANITATION OFFICER.DIRECTOR OF PUBLICATIONS Work Phone: [facility] 11-21-2024 16:11-0500 Body temperature 98.91 [degF] Diane Roberto SANITATION OFFICER.DIRECTOR OF PUBLICATIONS Work Phone: [facility] 11-21-2024 16:11-0500 Body weight 54.9 kg Diane Roberto SANITATION OFFICER.DIRECTOR OF PUBLICATIONS Work Phone: [facility] 11-21-2024 16:11-0500 Diastolic blood pressure 62 mm[Hg] Diane Roberto SANITATION OFFICER.DIRECTOR OF PUBLICATIONS Work Phone: [facility] 11-21-2024 16:11-0500 Heart rate 82 /min Diane Roberto SANITATION OFFICER.DIRECTOR OF PUBLICATIONS Work Phone: [facility] 11-21-2024 16:11-0500 Respiratory rate 16 /min Diane Roberto SANITATION OFFICER.DIRECTOR OF PUBLICATIONS Work Phone: [facility] 11-21-2024 16:11-0500 SaO2% (BldA) [Mass fraction] 99 % Diane Roberto SANITATION OFFICER.DIRECTOR OF PUBLICATIONS Work Phone: [facility] 11-21-2024 16:11-0500 Systolic blood pressure 100 mm[Hg] Diane Roberto SANITATION OFFICER.DIRECTOR OF PUBLICATIONS Work Phone: [facility] 11-11-2024 10:15-0500 Body mass index (BMI) [Ratio] 21.43 kg/m2 Praful Guajardo MD Work Phone: [facility] 11-11-2024 10:15-0500 Body weight 54.88 kg Praful Guajardo MD Work Phone: [facility] 11-11-2024 10:15-0500 Diastolic blood pressure 64 mm[Hg] Praful Guajardo MD Work Phone: [facility] 11-11-2024 10:15-0500 Heart rate 82 /min Praful Guajardo MD Work Phone: [facility] 11-11-2024 10:15-0500 Systolic blood pressure 110 mm[Hg] Praful Guajardo MD Work Phone: [facility] 11-04-2024 13:57-0500 Body height 161.3 cm Pacc 1 Work Phone: [facility] 11-04-2024 13:57-0500 Body mass index (BMI) [Ratio] 20.23 kg/m2 Pacc 1 Work Phone: [facility] 11-04-2024 13:57-0500 Body temperature 97.5 [degF] Pacc 1 Work Phone: [facility] 11-04-2024 13:57-0500 Body weight 52.62 kg Pacc 1 Work Phone: [facility] 11-04-2024 13:57-0500 Diastolic blood pressure 68 mm[Hg] Pacc 1 Work Phone: [facility] 11-04-2024 13:57-0500 Heart rate 66 /min Pacc 1 Work Phone: [facility] 11-04-2024 13:57-0500 Respiratory rate 14 /min Pacc 1 Work Phone: [facility] 11-04-2024 13:57-0500 SaO2% (BldA) [Mass fraction] 98 % Pacc 1 Work Phone: [facility] 11-04-2024 13:57-0500 Systolic blood pressure 114 mm[Hg] Pacc 1 Work Phone: [facility] 10-31-2024 08:17-0500 Body mass index (BMI) [Ratio] 20.75 kg/m2 Maria M Quarles DO Work Phone: [facility] 10-31-2024 08:17-0500 Body temperature 98.29 [degF] Maria M Quarles DO Work Phone: [facility] 10-31-2024 08:17-0500 Body weight 53.98 kg Maria M Mossi DO Work Phone: [facility] 10-31-2024 08:17-0500 Diastolic blood pressure 76 mm[Hg] Maria M Mossi DO Work Phone: [facility] 10-31-2024 08:17-0500 Heart rate 73 /min Maria M Mossi DO Work Phone: [facility] 10-31-2024 08:17-0500 SaO2% (BldA) [Mass fraction] 99 % Maria M Mossi DO Work Phone: [facility] 10-31-2024 08:17-0500 Systolic blood pressure 107 mm[Hg] Maria M Mossi DO Work Phone: [facility] 10-25-2024 08:36-0500 Body height 161.3 cm Praful Guajardo MD Work Phone: [facility] 10-25-2024 08:36-0500 Body mass index (BMI) [Ratio] 19.88 kg/m2 Praful Guajardo MD Work Phone: [facility] 10-25-2024 08:36-0500 Body weight 51.71 kg Praful Guajardo MD Work Phone: [facility] 10-25-2024 08:36-0500 Diastolic blood pressure 64 mm[Hg] Praful Guajardo MD Work Phone: [facility] 10-25-2024 08:36-0500 Heart rate 101 /min Praful Guajardo MD Work Phone: [facility] 10-25-2024 08:36-0500 Respiratory rate 14 /min Praful Guajardo MD Work Phone: [facility] 10-25-2024 08:36-0500 SaO2% (BldA) [Mass fraction] 98 % Praful Guajardo MD Work Phone: [facility] 10-25-2024 08:36-0500 Systolic blood pressure 115 mm[Hg] Praful Guajardo MD Work Phone: [facility] 10-17-2024 08:36-0500 Body height 161.3 cm Nata Valle MD Work Phone: [facility] 10-17-2024 08:36-0500 Body mass index (BMI) [Ratio] 20.26 kg/m2 Nata Valle MD Work Phone: [facility] 10-17-2024 08:36-0500 Body weight 52.71 kg Nata Valle MD Work Phone: [facility] 10-17-2024 08:36-0500 Diastolic blood pressure 78 mm[Hg] Nata Valle MD Work Phone: [facility] 10-17-2024 08:36-0500 Heart rate 88 /min Nata Valle MD Work Phone: [facility] 10-17-2024 08:36-0500 SaO2% (BldA) [Mass fraction] 100 % Nata Valle MD Work Phone: [facility] 10-17-2024 08:36-0500 Systolic blood pressure 111 mm[Hg] Nata Valle MD Work Phone: [facility] 09-19-2024 10:10-0500 Body mass index (BMI) [Ratio] 20.43 kg/m2 Kaitluiz Stubbs Work Phone: [facility] 09-19-2024 10:10-0500 Body temperature 98.1 [degF] Kaitluiz Stubbs Work Phone: [facility] 09-19-2024 10:10-0500 Body weight 53.98 kg Kait Stubbs Work Phone: [facility] 09-19-2024 10:10-0500 Diastolic blood pressure 76 mm[Hg] Kait Stubbs Work Phone: [facility] 09-19-2024 10:10-0500 Heart rate 83 /min Kait Stubbs Work Phone: [facility] 09-19-2024 10:10-0500 SaO2% (BldA) [Mass fraction] 100 % Kaitpeter Stubbs Work Phone: [facility] 09-19-2024 10:10-0500 Systolic blood pressure 113 mm[Hg] Kait Stubbs Work Phone: [facility] 06-24-2024 10:45-0400 Body mass index (BMI) [Ratio] 20.34 kg/m2 Maria M Mossi DO Work Phone: [facility] 06-24-2024 10:45-0400 Body temperature 97.9 [degF] Maria M Masci DO Work Phone: [facility] 06-24-2024 10:45-0400 Body weight 53.75 kg Maria M Masci DO Work Phone: [facility] 06-24-2024 10:45-0400 Diastolic blood pressure 79 mm[Hg] Maria M Jackiei DO Work Phone: [facility] 06-24-2024 10:45-0400 Heart rate 89 /min Maria M Masci DO Work Phone: [facility] 06-24-2024 10:45-0400 SaO2% (BldA) [Mass fraction] 99 % Maria M Jackiei DO Work Phone: [facility] 06-24-2024 10:45-0400 Systolic blood pressure 105 mm[Hg] Maria M Jackiei DO Work Phone: [facility] 06-17-2024 09:57-0400 Body mass index (BMI) [Ratio] 20.25 kg/m2 Leora Balderas APRN.DIRECTOR OF PUBLICATIONS Work Phone: [facility] 06-17-2024 09:57-0400 Body weight 53.52 kg Leora Balderas APRN.DIRECTOR OF PUBLICATIONS Work Phone: [facility] 06-17-2024 09:57-0400 Diastolic blood pressure 74 mm[Hg] Leora Balderas APRN.CNP Work Phone: [facility] 06-17-2024 09:57-0400 Heart rate 72 /min Leora Balderas APRN.CNP Work Phone: [facility] 06-17-2024 09:57-0400 Respiratory rate 14 /min Leora Balderas SANITATION OFFICER.DIRECTOR OF PUBLICATIONS Work Phone: [facility] 06-17-2024 09:57-0400 Systolic blood pressure 109 mm[Hg] Leora Balderas SANITATION OFFICER.DIRECTOR OF PUBLICATIONS Work Phone: [facility] 05-31-2024 14:20-0400 Body mass index (BMI) [Ratio] 20.43 kg/m2 Leoar Balderas SANITATION OFFICER.DIRECTOR OF PUBLICATIONS Work Phone: [facility] 05-31-2024 14:20-0400 Body weight 53.98 kg Leora Balderas SANITATION OFFICER.DIRECTOR OF PUBLICATIONS Work Phone: [facility] 05-31-2024 14:20-0400 Diastolic blood pressure 69 mm[Hg] Leora Balderas SANITATION OFFICER.DIRECTOR OF PUBLICATIONS Work Phone: [facility] 05-31-2024 14:20-0400 Heart rate 92 /min Leora Balderas SANITATION OFFICER.DIRECTOR OF PUBLICATIONS Work Phone: [facility] 05-31-2024 14:20-0400 Respiratory rate 14 /min Leora Balderas SANITATION OFFICER.DIRECTOR OF PUBLICATIONS Work Phone: [facility] 05-31-2024 14:20-0400 Systolic blood pressure 111 mm[Hg] Leora Balderas SANITATION OFFICER.DIRECTOR OF PUBLICATIONS Work Phone: [facility] 05-10-2024 09:54-0400 Body mass index (BMI) [Ratio] 20.43 kg/m2 Mini Crystal PA-C Work Phone: [facility] 05-10-2024 09:54-0400 Body temperature 97.39 [degF] Mini Crystal PA-C Work Phone: [facility] 05-10-2024 09:54-0400 Body weight 54 kg Mini Crystal PA-C Work Phone: [facility] 05-10-2024 09:54-0400 Diastolic blood pressure 80 mm[Hg] Mini Crystal PA-C Work Phone: [facility] 05-10-2024 09:54-0400 Heart rate 88 /min Mini Crystal PA-C Work Phone: [facility] 05-10-2024 09:54-0400 Respiratory rate 16 /min Mini Crystal PA-C Work Phone: [facility] 05-10-2024 09:54-0400 SaO2% (BldA) [Mass fraction] 97 % Mini Crystal PA-C Work Phone: [facility] 05-10-2024 09:54-0400 Systolic blood pressure 100 mm[Hg] Mini Crystla PA-C Work Phone: [facility] 01-22-2024 13:48-0400 Body mass index (BMI) [Ratio] 20.21 kg/m2 Cherry Lance MD Work Phone: [facility] 01-22-2024 13:48-0400 Body weight 53.4 kg Cherry Lance MD Work Phone: [facility] 01-22-2024 13:48-0400 Diastolic blood pressure 78 mm[Hg] Cherry Lance MD Work Phone: [facility] 01-22-2024 13:48-0400 Heart rate 58 /min Cherry Lance MD Work Phone: [facility] 01-22-2024 13:48-0400 SaO2% (BldA) [Mass fraction] 100 % Cherry Lance MD Work Phone: [facility] 01-22-2024 13:48-0400 Systolic blood pressure 112 mm[Hg] Cherry Lance MD Work Phone: [facility] 01-08-2024 08:25-0400 Body weight 52.62 kg Leora Balderas APRN.DIRECTOR OF PUBLICATIONS Work Phone: [facility] 01-08-2024 08:25-0400 Diastolic blood pressure 78 mm[Hg] Leora Balderas APRN.DIRECTOR OF PUBLICATIONS Work Phone: [facility] 01-08-2024 08:25-0400 Heart rate 84 /min Leora Balderas APRN.DIRECTOR OF PUBLICATIONS Work Phone: [facility] 01-08-2024 08:25-0400 Respiratory rate 14 /min Leora Balderas APRN.DIRECTOR OF PUBLICATIONS Work Phone: [facility] 01-08-2024 08:25-0400 Systolic blood pressure 100 mm[Hg] Leora Balderas APRN.DIRECTOR OF PUBLICATIONS Work Phone: [facility] 12-23-2023 10:57-0400 Body height 162.6 cm Maria M Masci DO Work Phone: [facility] 12-23-2023 10:57-0400 Body temperature 98.29 [degF] Maria M Masci DO Work Phone: [facility] 12-23-2023 10:57-0400 Body weight 55.34 kg Maria M Masci DO Work Phone: [facility] 12-23-2023 10:57-0400 Diastolic blood pressure 67 mm[Hg] Maria M Masci DO Work Phone: [facility] 12-23-2023 10:57-0400 Heart rate 76 /min Maria M Masci DO Work Phone: [facility] 12-23-2023 10:57-0400 SaO2% (BldA) [Mass fraction] 99 % Maria M Masci DO Work Phone: [facility] 12-23-2023 10:57-0400 Systolic blood pressure 110 mm[Hg] Maria M Masci DO Work Phone: [facility] 11-06-2023 11:35-0500 Body temperature 97.7 [degF] Mini Crystal PA-C Work Phone: [facility] 11-06-2023 11:35-0500 Body weight 54.43 kg Mini Crystal PA-C Work Phone: [facility] 11-06-2023 11:35-0500 Diastolic blood pressure 70 mm[Hg] Mini Crystal PA-C Work Phone: [facility] 11-06-2023 11:35-0500 Heart rate 96 /min Mini Crystal PA-C Work Phone: [facility] 11-06-2023 11:35-0500 Respiratory rate 16 /min Mini Crystal PA-C Work Phone: [facility] 11-06-2023 11:35-0500 Systolic blood pressure 100 mm[Hg] Mini Crystal PA-C Work Phone: [facility] 06-04-2023 13:18-0400 Body height 162.6 cm Mini Crystal PA-C Work Phone: [facility] 06-04-2023 13:18-0400 Body temperature 97.3 [degF] Mini Crystal PA-C Work Phone: [facility] 06-04-2023 13:18-0400 Body weight 54.43 kg Mini Crystal PA-C Work Phone: [facility] 06-04-2023 13:18-0400 Diastolic blood pressure 60 mm[Hg] Mini Crystal PA-C Work Phone: [facility] 06-04-2023 13:18-0400 Heart rate 70 /min Mini Crystal PA-C Work Phone: [facility] 06-04-2023 13:18-0400 Respiratory rate 16 /min Mini Crystal PA-C Work Phone: [facility] 06-04-2023 13:18-0400 Systolic blood pressure 90 mm[Hg] Mini Crystal PA-C Work Phone: [facility] 06-16-2022 14:42-0400 Body weight 54.8 kg Jonny Terrazas MD Work Phone: [facility] 06-16-2022 14:42-0400 Diastolic blood pressure 60 mm[Hg] Jonyn Terrazas MD Work Phone: [facility] 06-16-2022 14:42-0400 Systolic blood pressure 100 mm[Hg] Jonny Terrazas MD Work Phone: [facility] 05-29-2022 15:03-0400 Body weight 56.25 kg Allie Rome MD Work Phone: [facility] 05-29-2022 15:03-0400 Diastolic blood pressure 60 mm[Hg] Allie Rome MD Work Phone: [facility] 05-29-2022 15:03-0400 Systolic blood pressure 96 mm[Hg] Allie Rome MD Work Phone: [facility] 05-28-2022 11:12-0400 Body weight 56.02 kg Maria M Mossi DO Work Phone: [facility] 04-25-2022 09:27-0400 Body weight 55.7 kg Allie Rome MD Work Phone: [facility] 04-25-2022 09:27-0400 Diastolic blood pressure 60 mm[Hg] Allie Rome MD Work Phone: [facility] 04-25-2022 09:27-0400 Systolic blood pressure 100 mm[Hg] Allie Rome MD Work Phone: [facility] 04-16-2022 11:04-0400 Body weight 56.25 kg Maria M Jackiei DO Work Phone: [facility] 04-04-2022 09:12-0400 Body weight 62.96 kg Allie Rome MD Work Phone: [facility] 04-04-2022 09:12-0400 Diastolic blood pressure 62 mm[Hg] Allie Rome MD Work Phone: [facility] 04-04-2022 09:12-0400 Systolic blood pressure 98 mm[Hg] Allie Rome MD Work Phone: [facility] 04-01-2022 13:17-0400 Body weight 63.14 kg Emily Lay APRN.CNM Work Phone: [facility] 03-27-2022 14:24-0400 Body weight 62.6 kg Jonny Terrazas MD Work Phone: [facility] 03-27-2022 14:24-0400 Diastolic blood pressure 62 mm[Hg] Jonny Terrazas MD Work Phone: [facility] 03-27-2022 14:24-0400 Systolic blood pressure 104 mm[Hg] Jonny Terrazas MD Work Phone: [facility] 03-24-2022 08:51-0400 Body temperature 97.7 [degF] Maria M Masci DO Work Phone: [facility] 03-24-2022 08:51-0400 Body weight 63.28 kg Maria M Masci DO Work Phone: [facility] 03-24-2022 08:51-0400 Diastolic blood pressure 58 mm[Hg] Maria M Masci DO Work Phone: [facility] 03-24-2022 08:51-0400 Heart rate 63 /min Maria M Masci DO Work Phone: [facility] 03-24-2022 08:51-0400 SaO2% (BldA) [Mass fraction] 100 % Maria M Masci DO Work Phone: [facility] 03-24-2022 08:51-0400 Systolic blood pressure 100 mm[Hg] Maria M Masci DO Work Phone: [facility] 03-19-2022 16:26-0400 Body weight 63.05 kg Allie Rome MD Work Phone: [facility] 03-19-2022 16:26-0400 Diastolic blood pressure 62 mm[Hg] Allie Rome MD Work Phone: [facility] 03-19-2022 16:26-0400 Systolic blood pressure 102 mm[Hg] Allie Rome MD Work Phone: [facility] 03-19-2022 15:50-0400 Diastolic blood pressure 67 mm[Hg] Treatment Wstr Work Phone: [facility] 03-19-2022 15:50-0400 Heart rate 83 /min Treatment Wstr Work Phone: [facility] 03-19-2022 15:50-0400 Systolic blood pressure 105 mm[Hg] Treatment Wstr Work Phone: [facility] 03-14-2022 08:29-0400 Body temperature 96.8 [degF] Treatment Wstr Work Phone: [facility] 03-14-2022 08:29-0400 Diastolic blood pressure 56 mm[Hg] Treatment Wstr Work Phone: [facility] 03-14-2022 08:29-0400 Heart rate 70 /min Treatment Wstr Work Phone: [facility] 03-14-2022 08:29-0400 Systolic blood pressure 104 mm[Hg] Treatment tr Work Phone: [facility] 03-11-2022 23:02-0400 Body height 162.56 cm [facility] Work Phone: 03-11-2022 23:02-0400 Body mass index (BMI) [Ratio] 24.3 kg/m2 [facility] Work Phone: 03-11-2022 23:02-0400 Body weight 64.22 kg [facility] Work Phone: 03-11-2022 22:52-0400 Diastolic blood pressure 65 mm[Hg] [facility] Work Phone: 03-11-2022 22:52-0400 Heart rate 62 /min [facility] Work Phone: 03-11-2022 22:52-0400 Systolic blood pressure 109 mm[Hg] [facility] Work Phone: 03-11-2022 22:46-0400 SaO2% (BldA) [Mass fraction] 99 % [facility] Work Phone: 03-06-2022 08:59-0400 Body temperature 98.4 [degF] Alyssa Goddard APRN.CNP Work Phone: [facility] 03-06-2022 08:59-0400 Body weight 62.14 kg Alyssa Goddard SANITATION OFFICER.DIRECTOR OF PUBLICATIONS Work Phone: [facility] 03-06-2022 08:59-0400 Diastolic blood pressure 52 mm[Hg] Alyssa Goddard SANITATION OFFICER.DIRECTOR OF PUBLICATIONS Work Phone: [facility] 03-06-2022 08:59-0400 Heart rate 80 /min Alyssa Deckerenter SANITATION OFFICER.DIRECTOR OF PUBLICATIONS Work Phone: [facility] 03-06-2022 08:59-0400 SaO2% (BldA) [Mass fraction] 98 % Alyssa Deckerenter SANITATION OFFICER.DIRECTOR OF PUBLICATIONS Work Phone: [facility] 03-06-2022 08:59-0400 Systolic blood pressure 120 mm[Hg] Alyssa Goddard SANITATION OFFICER.DIRECTOR OF PUBLICATIONS Work Phone: [facility] 03-06-2022 08:06-0400 Body temperature 97.3 [degF] Treatment Wstr Work Phone: [facility] 03-06-2022 08:06-0400 Diastolic blood pressure 58 mm[Hg] Treatment Wstr Work Phone: [facility] 03-06-2022 08:06-0400 Heart rate 88 /min Treatment Wstr Work Phone: [facility] 03-06-2022 08:06-0400 Systolic blood pressure 118 mm[Hg] Treatment Wstr Work Phone: [facility] 03-05-2022 16:10-0400 Body weight 62.51 kg Allie Rome MD Work Phone: [facility] 03-05-2022 16:10-0400 Diastolic blood pressure 60 mm[Hg] Allie Rome MD Work Phone: [facility] 03-05-2022 16:10-0400 Systolic blood pressure 104 mm[Hg] Allie Rome MD Work Phone: [facility] 03-04-2022 08:40-0400 Body temperature 97.3 [degF] Treatment Wstr Work Phone: [facility] 03-04-2022 08:40-0400 Diastolic blood pressure 54 mm[Hg] Treatment Wstr Work Phone: [facility] 03-04-2022 08:40-0400 Heart rate 79 /min Treatment Wstr Work Phone: [facility] 03-04-2022 08:40-0400 Respiratory rate 18 /min Treatment Wstr Work Phone: [facility] 03-04-2022 08:40-0400 SaO2% (BldA) [Mass fraction] 100 % Treatment Wstr Work Phone: [facility] 03-04-2022 08:40-0400 Systolic blood pressure 97 mm[Hg] Treatment Wstr Work Phone: [facility] 02-28-2022 08:42-0400 Body temperature 96.69 [degF] Treatment Wstr Work Phone: [facility] 02-28-2022 08:42-0400 Diastolic blood pressure 66 mm[Hg] Treatment Wstr Work Phone: [facility] 02-28-2022 08:42-0400 Heart rate 83 /min Treatment Wstr Work Phone: [facility] 02-28-2022 08:42-0400 Systolic blood pressure 110 mm[Hg] Treatment Wstr Work Phone: [facility] 02-26-2022 08:10-0400 Body temperature 97.59 [degF] Treatment Wstr Work Phone: [facility] 02-26-2022 08:10-0400 Diastolic blood pressure 58 mm[Hg] Treatment Wstr Work Phone: [facility] 02-26-2022 08:10-0400 Heart rate 66 /min Treatment Wstr Work Phone: [facility] 02-26-2022 08:10-0400 Systolic blood pressure 100 mm[Hg] Treatment Wstr Work Phone: [facility] 02-24-2022 18:36-0400 Diastolic blood pressure 55 mm[Hg] [facility] Work Phone: 02-24-2022 18:36-0400 Heart rate 77 /min [facility] Work Phone: 02-24-2022 18:36-0400 Systolic blood pressure 95 mm[Hg] [facility] Work Phone: 02-24-2022 18:09-0400 Body height 162.56 cm [facility] Work Phone: 02-24-2022 18:09-0400 Body mass index (BMI) [Ratio] 23.1 kg/m2 [facility] Work Phone: 02-24-2022 18:09-0400 Body weight 61.29 kg [facility] Work Phone: 02-24-2022 17:21-0400 Body temperature 98 [degF] [facility] Work Phone: 02-21-2022 08:05-0400 Body temperature 98.1 [degF] Treatment Wstr Work Phone: [facility] 02-21-2022 08:05-0400 Diastolic blood pressure 55 mm[Hg] Treatment Wstr Work Phone: [facility] 02-21-2022 08:05-0400 Heart rate 80 /min Treatment Wstr Work Phone: [facility] 02-21-2022 08:05-0400 Systolic blood pressure 107 mm[Hg] Treatment Wstr Work Phone: [facility] 02-19-2022 16:40-0400 Body weight 60.96 kg Allie Rome MD Work Phone: [facility] 02-19-2022 16:40-0400 Diastolic blood pressure 70 mm[Hg] Allie Rome MD Work Phone: [facility] 02-19-2022 16:40-0400 Systolic blood pressure 110 mm[Hg] Allie Rome MD Work Phone: [facility] 02-19-2022 08:00-0400 Body temperature 97.2 [degF] Treatment Wstr Work Phone: [facility] 02-19-2022 08:00-0400 Diastolic blood pressure 63 mm[Hg] Treatment Wstr Work Phone: [facility] 02-19-2022 08:00-0400 Heart rate 96 /min Treatment Wstr Work Phone: [facility] 02-19-2022 08:00-0400 Systolic blood pressure 123 mm[Hg] Treatment Wstr Work Phone: [facility] 02-05-2022 08:36-0400 Body weight 59.88 kg Allie Rome MD Work Phone: [facility] 02-05-2022 08:36-0400 Diastolic blood pressure 54 mm[Hg] Allie Rome MD Work Phone: [facility] 02-05-2022 08:36-0400 Systolic blood pressure 88 mm[Hg] Allie Rome MD Work Phone: [facility] 01-09-2022 10:01-0400 Body weight 57.88 kg Allie Rome MD Work Phone: [facility] 01-09-2022 10:01-0400 Diastolic blood pressure 60 mm[Hg] Allie Rome MD Work Phone: [facility] 01-09-2022 10:01-0400 Systolic blood pressure 100 mm[Hg] Allie Rome MD Work Phone: [facility] Encounters Encounter Date Encounter Type Care Provider Facility Start: 07-30-2025 End: 07-30-2025 Emergency department patient visit ANN DICKINSON Facility:[facility] Start: 07-05-2025 End: 07-05-2025 ambulatory ANN DICKINSON Facility:[facility] Start: 05-22-2025 End: 05-22-2025 ambulatory Treatment Rm 14 [facility] Work Phone: Hematology/Oncology Comment on above: Iron deficiency anem ia during (HCC) (Primary Dx); Iron deficiency anemia secondary to inadequate dietary iron intake; Iron malabsorption (HCC) Start: 05-22-2025 End: 05-22-2025 Telephone encounter Naila CASILLAS Hematology/Oncology Comment on above: Social Work Services ; [employer] Start: 05-22-2025 End: 05-22-2025 ambulatory Chang Diggs PT Work Phone: [facility] Physical Therapy Comment on above: TOS (thoracic outlet syndrome) (Primary Dx); Thoracic outlet syndrome Start: 05-19-2025 End: 05-19-2025 Orders Only Kait Stubbs Work Phone: Hematology/Oncology Comment on above: B12 deficiency (Prim yara Dx) Iron deficiency anem ia during (HCC) (Primary Dx); Iron deficiency anemia secondary to inadequate dietary iron intake; Iron malabsorption (HCC) Start: 05-18-2025 End: 05-18-2025 Orders Only Kait Stubbs Work Phone: Hematology/Oncology Comment on above: Iron deficiency anem ia, unspecified iron deficiency anemia type (Primary Dx); History of pulmonary embolism Start: 05-17-2025 End: 05-17-2025 ambulatory Treatment Rm 16 [facility] Work Phone: Hematology/Oncology Comment on above: Iron deficiency anem ia during (HCC) (Primary Dx); Iron deficiency anemia secondary to inadequate dietary iron intake; Iron malabsorption (HCC) Start: 05-16-2025 End: 05-16-2025 Patient encounter procedure Praful Guajardo MD Work Phone: Vascular Surg Dept Comment on above: TOS (thoracic outlet syndrome) (Primary Dx); 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 Start: 05-16-2025 End: 05-16-2025 ambulatory PRAFUL GUAJARDO Facility:[facility] Start: 05-16-2025 End: 05-16-2025 ambulatory PRAFUL GUAJARDO Facility:[facility] Start: 05-16-2025 End: 05-16-2025 Subsequent hospital visit by physician Xr Chest Main J1 Work Phone: Radiology Comment on above: TOS (thoracic outlet syndrome) [G54.0] Start: 05-12-2025 End: 05-12-2025 ambulatory MARIA M QUARLES Facility:[facility] Start: 05-08-2025 End: 05-08-2025 ambulatory Treatment Rm 14 [facility] Work Phone: Hematology/Oncology Comment on above: Iron deficiency anem ia during (HCC) (Primary Dx); Iron deficiency anemia secondary to inadequate dietary iron intake; Iron malabsorption (HCC) TOS (thoracic outlet syndrome) (Primary Dx); Thoracic outlet syndrome Start: 05-04-2025 End: 05-04-2025 ambulatory KAITPETER STUBBS Facility:[facility] Start: 04-27-2025 End: 06-02-2025 Telephone encounter Maria M Quarles DO Work Phone: Hematology/Oncology Comment on above: Appointment Multiple Concerns Start: 04-26-2025 End: 04-26-2025 Emergency department patient visit ANN DICKINSON Facility:[facility] Start: 04-24-2025 End: 04-24-2025 ambulatory Chang Diggs PT Work Phone: [facility] Physical Therapy Comment on above: TOS (thoracic outlet syndrome) (Primary Dx); Thoracic outlet syndrome Start: 04-20-2025 End: 06-20-2025 Follow-up encounter Ann Dickinson PA-C Work Phone: [facility] [place] Start: 04-17-2025 End: 04-17-2025 ambulatory Chang Diggs PT Work Phone: [facility] Physical Therapy Comment on above: TOS (thoracic outlet syndrome) (Primary Dx); Thoracic outlet syndrome Start: 04-11-2025 End: 04-11-2025 Telephone encounter Nata Valle MD Work Phone: [facility] Start: 04-05-2025 End: 04-05-2025 Telemedicine consultation with patient Nata Valle MD Work Phone: Vascular Medicine Start: 04-05-2025 End: 04-05-2025 ambulatory Nata Valle MD Work Phone: Vascular Medicine Comment on above: Personal history of DVT (deep vein thrombosis) (Primary Dx); Thoracic outlet syndrome Start: 04-04-2025 End: 04-04-2025 ambulatory ANN DICKINSON Facility:[facility] Start: 04-04-2025 End: 04-04-2025 Office outpatient visit 25 minutes Ann Dickinson PA-C Work Phone: [facility] [place] Comment on above: Acquired hypothyroid ism (Primary Dx); TOS (thoracic outlet syndrome); 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; History of pulmonary embolus (PE) Start: 03-27-2025 End: 03-27-2025 ambulatory Huyen Villela MONOTYPE OPERATOR Work Phone: [facility] Physical Therapy Comment on above: TOS (thoracic outlet syndrome) (Primary Dx); Thoracic outlet syndrome Start: 03-23-2025 End: 03-23-2025 ambulatory Chang Diggs PT Work Phone: [facility] Physical Therapy Comment on above: TOS (thoracic outlet syndrome) (Primary Dx); Thoracic outlet syndrome Start: 03-16-2025 End: 03-16-2025 Telemedicine consultation with patient Nata Valle MD Work Phone: Vascular Medicine Start: 03-16-2025 End: 03-16-2025 ambulatory Nata Valle MD Work Phone: Vascular Medicine Comment on above: Thoracic outlet synd denis (Primary Dx); Personal history of DVT (deep vein thrombosis) TOS (thoracic outlet syndrome) (Primary Dx); Thoracic outlet syndrome Start: 03-08-2025 End: 03-08-2025 ambulatory Thais Mishra PT, DPT [facility] Physical Therapy Comment on above: TOS (thoracic outlet syndrome) (Primary Dx); Thoracic outlet syndrome Start: 03-01-2025 End: 03-01-2025 ambulatory Huyen Villela MONOTYPE OPERATOR Work Phone: [facility] Physical Therapy Comment on above: TOS (thoracic outlet syndrome) (Primary Dx); Thoracic outlet syndrome Start: 02-28-2025 End: 02-28-2025 Subsequent hospital visit by physician Xr Chest Main Qb1 Radiology Comment on above: TOS (thoracic outlet syndrome) [G54.0] Start: 02-28-2025 End: 02-28-2025 Patient encounter procedure Praful Guajardo MD Work Phone: Vascular Surg Dept Comment on above: TOS (thoracic outlet syndrome) (Primary Dx); Hematoma; Thoracic outlet syndrome Start: 02-28-2025 End: 02-28-2025 ambulatory PRAFUL GUAJARDO Facility:[facility] Start: 02-28-2025 End: 02-28-2025 Patient encounter procedure Nata Valle MD Work Phone: Vascular Medicine Comment on above: Thoracic outlet synd denis (Primary Dx); Personal history of DVT (deep vein thrombosis); Acute blood loss anemia Start: 02-28-2025 End: 02-28-2025 ambulatory NATA VALLE Facility:[facility] Start: 02-24-2025 End: 02-24-2025 ambulatory [facility] Facility:[facility] Start: 02-15-2025 End: 02-15-2025 Telephone encounter Praful Guajardo MD Work Phone: Vascular Surg Dept Comment on above: Patient Update Start: 02-15-2025 End: 02-15-2025 Subsequent hospital visit by physician [facility] Work Phone: Radiology Comment on above: Chest pain, unspecif ied type [R07.9] Start: 02-15-2025 End: 02-15-2025 Office outpatient visit 15 minutes Ravinder Duncan APRN.CNP Work Phone: [facility] Comment on above: Chest pain, unspecif ied type (Primary Dx) Start: 02-15-2025 End: 02-15-2025 ambulatory [place] Facility:[facility] Start: 02-14-2025 End: 02-14-2025 ambulatory [facility] Comment on above: Thoracic outlet synd denis (Primary Dx); TOS (thoracic outlet syndrome) Start: 02-14-2025 End: 02-14-2025 Telephone encounter Naila CASILLAS Hematology/Oncology Comment on above: Social Work Services ; [employer] Start: 02-13-2025 End: 02-13-2025 Orders Only Maggie Circle SANITATION OFFICER.DRY HOUSE WORKER Work Phone: Vascular Surg Dept Comment on above: Acute blood loss ane julieta (Primary Dx) TOS (thoracic outlet syndrome) (Primary Dx) Start: 02-10-2025 End: 02-10-2025 ambulatory Praful Guajardo MD Work Phone: Vascular Surg Dept Comment on above: My hemoglobin Start: 02-09-2025 End: 02-10-2025 Follow-up encounter Ann Dickinson PA-C Work Phone: [facility] [place] Start: 02-08-2025 End: 02-09-2025 Telephone encounter Maggie Circle SANITATION OFFICER.DRY HOUSE WORKER Work Phone: Vascular Surg Dept Start: 02-03-2025 End: 02-03-2025 Orders Only Maggie Circle SANITATION OFFICER.DRY HOUSE WORKER Work Phone: Vascular Surg Dept Comment on above: TOS (thoracic outlet syndrome) (Primary Dx) Start: 02-01-2025 End: 02-10-2025 Evaluation and management of inpatient PRAFUL GUAJARDO Facility:[facility] Start: 01-31-2025 End: 01-31-2025 Telephone encounter Praful Guajardo MD Work Phone: Vascular Surg Dept Comment on above: Appointment Start: 01-31-2025 End: 01-31-2025 Patient encounter procedure Maria M Nydia Willam DO Work Phone: Hematology/Oncology Start: 01-31-2025 End: 01-31-2025 ambulatory Praful Guajardo MD Work Phone: Vascular Surg Dept Comment on above: Potential Blood Clot 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 RAVINDER DUNCAN [facility] Start: 01-27-2025 End: 01-27-2025 ambulatory ELOISE WORTHY Facility:[facility] Start: 01-27-2025 End: 01-27-2025 ambulatory ELOISE WORTHY Facility:[facility] Start: 01-27-2025 Encounter for other preprocedural examination ELOISE WORTHY [facility] Start: 01-26-2025 End: 01-26-2025 [facility] Start: 01-12-2025 End: 01-12-2025 [facility] Start: 01-09-2025 End: 01-09-2025 Telephone encounter Praful Guajardo MD Work Phone: Vascular Surg Dept Start: 12-29-2024 End: 12-29-2024 Admission to same day surgery center Praful Guajardo MD Work Phone: Vascular Surg Dept Comment on above: IMPORTANT - RE: Surg christopher and Insurance Start: 12-29-2024 End: 12-29-2024 E-mail encounter from caregiver Praful Guajardo MD Work Phone: Vascular Surg Dept Start: 12-29-2024 End: 12-29-2024 Telephone encounter Praful Guajardo MD Work Phone: Vascular Surg Dept Comment on above: Patient Question Start: 12-08-2024 End: 02-07-2025 Follow-up encounter Jonny Terrazas MD Work Phone: OB/Gynecology Start: 12-03-2024 End: 12-05-2024 Orders Only Praful Guajardo MD Work Phone: Vascular Surg Dept Comment on above: Thoracic outlet synd denis (Primary Dx); Preop examination Start: 12-03-2024 End: 12-05-2024 Preprocedural examination done Praful Guajardo MD Work Phone: [facility] Start: 12-01-2024 End: 12-01-2024 Patient encounter procedure Jonny Terrazas MD Work Phone: OB/Gynecology Comment on above: Encounter for gyneco logical examination (general) (routine) without abnormal findings (Primary Dx); Screening for cervical cancer; Encounter for screening for human papillomavirus (HPV) Start: 12-01-2024 End: 12-01-2024 Patient encounter status Jonny Terrazas MD Work Phone: [facility] Start: 12-01-2024 End: 12-01-2024 Telephone encounter Naila Martínez CASILLAS Hematology/Oncology Start: 12-01-2024 End: 12-01-2024 ambulatory JONNY TERRAZAS Facility:[facility] Start: 12-01-2024 Encounter for gynecological examination (general) (routine) without abnormal findings JONNY TERRAZAS [facility] Start: 11-30-2024 End: 11-30-2024 Office outpatient new 45 minutes Ann Dickinson PA-C Work Phone: [facility] [place] Comment on above: Acquired hypothyroid ism (Primary Dx); TOS (thoracic outlet syndrome); Chronic deep vein thrombosis (DVT) of other vein of left upper extremity (HCC); Situational stress; 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; History of pulmonary embolus (PE); Factor II deficiency (HCC) Start: 11-30-2024 End: 11-30-2024 ambulatory ANN DICKINSON Facility:[facility] Start: 11-26-2024 End: 11-26-2024 Emergency department patient visit RAVINDER BABB Facility:[facility] Start: 11-25-2024 End: 11-28-2024 Telephone encounter Praful Guajardo MD Work Phone: Vascular Surg Dept Comment on above: Patient Update; Appo intment Start: 11-21-2024 End: 11-21-2024 Subsequent hospital visit by physician [facility]ie [facility] Work Phone: Radiology Comment on above: Injury of right foot , initial encounter [S99.921A] Start: 11-21-2024 End: 11-21-2024 ambulatory RAVINDER BABB Facility:[facility] Start: 11-21-2024 End: 11-21-2024 Patient encounter procedure Diane Mejia APRN.DIRECTOR OF PUBLICATIONS Work Phone: [facility] Comment on above: Injury of right foot , initial encounter (Primary Dx) Start: 11-21-2024 End: 11-25-2024 Telephone encounter Praful Guajardo MD Work Phone: Vascular Surg Dept Comment on above: Appointment Start: 11-17-2024 End: 11-17-2024 ambulatory PRAFUL GUAJARDO Facility: Start: 11-15-2024 End: 11-15-2024 ambulatory Estefania O'Steven PT [facility] Physical Therapy Comment on above: Thoracic outlet synd denis (Primary Dx) Start: 11-11-2024 End: 11-11-2024 ambulatory PRAFUL GUAJARDO Facility:[facility] Start: 11-11-2024 End: 11-11-2024 Patient encounter procedure Praful Guajardo MD Work Phone: Vascular Surg Dept Comment on above: Thoracic outlet synd denis (Primary Dx) Start: 11-08-2024 End: 11-08-2024 ambulatory Estefania O'Steven PT [facility] Physical Therapy Comment on above: Thoracic outlet synd denis (Primary Dx) Start: 11-07-2024 End: 11-07-2024 Telephone encounter Praful Guajardo MD Work Phone: Vascular Surg Dept Start: 11-05-2024 End: 11-06-2024 Emergency department patient visit RAVINDER MARTINEY Facility:[facility] Start: 11-05-2024 End: 11-05-2024 Telephone encounter Pat Tang APRN.DIRECTOR OF PUBLICATIONS Work Phone: Cardiothoracic Comment on above: Patient Question Start: 11-04-2024 End: 11-04-2024 PAT [facility] 1 Work Phone: Pre Anesthesia Comment on above: Pre-operative examin ation (Primary Dx); Acquired hypothyroidism; Hypokalemia; Iron malabsorption; PE (pulmonary thromboembolism) (HCC); Chronic deep vein thrombosis (DVT) of other vein of left upper extremity (HCC); TRUDI (generalized anxiety disorder) Start: 11-04-2024 End: 11-04-2024 Preprocedural examination done [facility] [place] 1 Work Phone: [facility] Start: 11-03-2024 End: 11-03-2024 ambulatory [facility]ef[facility] Comment on above: Thoracic outlet synd denis (Primary Dx) Start: 11-01-2024 End: 11-08-2024 Admission to same day surgery center Adry Oneill RN Pre Anesthesia Comment on above: Preparations For Fiordaliza omar (PACC) Start: 11-01-2024 End: 11-08-2024 ambulatory Adry Oneill RN Pre Anesthesia Start: 11-01-2024 End: 11-01-2024 Telephone encounter Maria M Quarles DO Work Phone: Hematology/Oncology Comment on above: Results Start: 10-31-2024 End: 10-31-2024 Telephone encounter Madalyn Paiz MD [facility] Department Comment on above: Fabric Transition of Care AV 10/31 Start: 10-31-2024 End: 10-31-2024 Office outpatient visit 15 minutes Maria M Quarles DO Work Phone: Hematology/Oncology Comment on above: Deep vein thrombosis (DVT) of other vein of right upper extremity, unspecified chronicity (HCC) (Primary Dx); Chronic deep vein thrombosis (DVT) of other vein of left upper extremity (HCC) Start: 10-31-2024 End: 11-01-2024 Social Work Naila CASILLAS Hematology/Oncology Start: 10-25-2024 End: 10-25-2024 Orders Only Praful Guajardo MD Work Phone: Vascular Surg Dept Comment on above: TOS (thoracic outlet syndrome) (Primary Dx) Thoracic outlet synd denis Start: 10-24-2024 End: 10-24-2024 Telephone encounter Madalyn Paiz MD [facility] Department Comment on above: Fabric Transition of Care Start: 10-21-2024 End: 11-14-2024 Telephone encounter Naila CASILLAS Hematology/Oncology Comment on above: Social Work Services Start: 10-20-2024 End: 10-20-2024 Telephone encounter Ravinder Babb MD Work Phone: NOC Comment on above: Transition Of Care Start: 10-18-2024 End: 10-18-2024 E-mail encounter from caregiver Nata Valle MD Work Phone: Vascular Medicine Start: 10-18-2024 End: 10-18-2024 Telephone encounter Ravinder Babb MD Work Phone: NOC Comment on above: Appointment Start: 10-18-2024 End: 10-18-2024 ambulatory Nata Valle MD Work Phone: Vascular Medicine Comment on above: vascular surgeon Thoracic outlet synd denis (Primary Dx); Personal history of DVT (deep vein thrombosis) Start: 10-18-2024 End: 10-18-2024 Telemedicine consultation with patient Nata Valle MD Work Phone: Vascular Medicine Start: 10-17-2024 End: 10-17-2024 ambulatory NATA VALLE Facility:[facility] Start: 10-17-2024 End: 10-17-2024 Patient encounter procedure Nata Valle MD Work Phone: Vascular Medicine Comment on above: Personal history of DVT (deep vein thrombosis) (Primary Dx); Thoracic outlet syndrome Start: 10-14-2024 End: 10-14-2024 ambulatory JETHRO WADDELL Facility:[facility] Start: 10-14-2024 End: 10-14-2024 Telephone encounter Jethro Waddell MD Work Phone: [place] Provider Adult Start: 10-12-2024 End: 10-14-2024 Evaluation and management of inpatient RAVINDER BABB Facility:[facility] Start: 09-29-2024 End: 09-30-2024 Emergency department patient visit RAVINDER BABB Facility:[facility] Start: 09-19-2024 End: 09-19-2024 ambulatory Kait Stubbs Work Phone: Hematology/Oncology Comment on above: Acute deep vein thro mbosis (DVT) of axillary vein of left upper extremity (HCC) (Primary Dx); History of pulmonary embolism Start: 09-19-2024 End: 09-19-2024 Patient encounter procedure Kait Stubbs Work Phone: Hematology/Oncology Start: 09-16-2024 End: 09-16-2024 Telephone encounter Leora Balderas APRN.CNP Work Phone: Family [facility] Comment on above: Results Start: 09-15-2024 End: 09-16-2024 Telephone encounter Desiree Solano RN Hematology/Oncology Comment on above: Punch Press Feeder - O ther (ED Follow-up) Start: 09-15-2024 End: 09-15-2024 ambulatory LEORA BALDERAS Facility:[facility] Start: 09-14-2024 Emergency department patient visit RAVINDER BABB Facility:[facility] Start: 09-14-2024 End: 09-14-2024 Telephone encounter Maria M Quarles DO Work Phone: Hematology/Oncology Comment on above: Patient Update Start: 09-07-2024 End: 09-08-2024 Refill Ravinder Babb MD Work Phone: Family [facility] Comment on above: Refill Request Start: 09-06-2024 End: 09-06-2024 Telephone encounter Ravinder Babb MD Work Phone: [facility] Comment on above: requesting m edication Start: 08-30-2024 End: 08-31-2024 Telephone encounter Naila CASILLAS Hematology/Oncology Comment on above: Eliquis Assistance Start: 08-04-2024 End: 08-04-2024 Emergency department patient visit RAVINDER BABB Facility:[facility] Start: 06-28-2024 End: 06-28-2024 Telephone encounter Maria M Quarles DO Work Phone: Hematology/Oncology Comment on above: Patient Update Start: 06-24-2024 End: 06-24-2024 ambulatory Maria M Quarles DO Work Phone: Hematology/Oncology Comment on above: Acute deep vein thro mbosis (DVT) of axillary vein of left upper extremity (HCC) (Primary Dx); Hematoma; History of pulmonary embolism Start: 06-24-2024 End: 06-24-2024 Patient encounter procedure Maria M Quarles DO Work Phone: Hematology/Oncology Start: 06-20-2024 End: 06-20-2024 Telephone encounter Madalyn Paiz MD [facility] Department Comment on above: Fabric Transition of Care Start: 06-17-2024 End: 06-17-2024 Patient encounter procedure Leora Balderas APRN.DIRECTOR OF PUBLICATIONS Work Phone: Family Medicine [place] Comment on above: Acute deep vein thro mbosis (DVT) of proximal vein of left lower extremity (HCC) (Primary Dx); Acute deep vein thrombosis (DVT) of axillary vein of left upper extremity (HCC); Acquired hypothyroidism Start: 06-15-2024 End: 06-15-2024 Telephone encounter Desiree Solano RN Hematology/Oncology Comment on above: Punch [employer] Feeder - O ther (Questions ) Start: 06-13-2024 End: 06-13-2024 Telephone encounter Madalyn Paiz MD [facility] Department Comment on above: Fabric Transition of Care Start: 06-07-2024 End: 06-09-2024 Telephone encounter Ravinder Babb MD Work Phone: [facility] Comment on above: medication question/ results Appointment Start: 06-06-2024 End: 06-06-2024 Telephone encounter Madalyn Paiz MD [facility] Department Comment on above: Fabric Transition of Care Start: 05-31-2024 End: 05-31-2024 Patient encounter procedure Leora Balderas APRN.DIRECTOR OF PUBLICATIONS Work Phone: [facility] [place] Comment on above: Palpitations (Primar y Dx); Acquired hypothyroidism Start: 05-30-2024 End: 05-30-2024 Telephone encounter Ravinder Babb MD Work Phone: Family Medicine [place] Comment on above: Patient Update; Sola ent Question Start: 05-13-2024 Telephone encounter Mini vela PA-C Work Phone: [facility] [place] Comment on above: Results; Orders Start: 05-10-2024 End: 05-10-2024 Patient encounter procedure Mini Crystal PA-C Work Phone: [facility] [place] Comment on above: Acquired hypothyroid ism (Primary Dx); Hypothyroidism, unspecified type; Iron deficiency anemia secondary to inadequate dietary iron intake; Iron deficiency anemia during ; TRUDI (generalized anxiety disorder); SANDOVAL (dyspnea on exertion) Start: 01-29-2024 Telephone encounter Cherry bishop MD Work Phone: Allergy Start: 01-22-2024 End: 01-22-2024 Patient encounter procedure Cherry Lance MD Work Phone: Allergy Comment on above: Adverse reaction to food, subsequent encounter (Primary Dx); Throat tightness; Vocal cord dysfunction; Mast cell disorder; Shortness of breath; Latex allergy Start: 01-11-2024 Telephone encounter Maria M magana DO Work Phone: Hematology/Oncology Comment on above: Patient Question Start: 01-08-2024 End: 01-08-2024 Patient encounter procedure Leora Balderas APRN.DIRECTOR OF PUBLICATIONS Work Phone: [facility] Comment on above: Situational stress ( Primary Dx); Paradoxical vocal cord motion disorder; Allergic reaction, subsequent encounter Start: 01-05-2024 ambulatory Ravinder hays MD Work Phone: [facility] Comment on above: Allergic Reaction Start: 12-29-2023 End: 12-29-2023 Refill Ravinder Babb MD Work Phone: [facility] Comment on above: Refill Request Dry eyes, bilateral (Primary Dx); Pain of both eyes; Regular astigmatism, bilateral Start: 12-23-2023 End: 12-23-2023 ambulatory Maria M Quarles DO Work Phone: Hematology/Oncology Comment on above: PE (pulmonary thromb oembolism) ([facility]) (Primary Dx); Iron deficiency anemia during ; Pain of both eyes Start: 12-23-2023 End: 12-23-2023 Patient encounter procedure Maria M Quarles DO Work Phone: [facility] Start: 2023 Telephone encounter Mini vela PA-C Work Phone: [facility] Comment on above: Results Start: 12-16-2023 Telephone encounter Maria M magana DO Work Phone: Hematology/Oncology Comment on above: Patient Question Start: 11-06-2023 End: 11-06-2023 Patient encounter procedure Mini Crystal PA-C Work Phone: [facility] [place] Comment on above: Acquired hypothyroid ism (Primary Dx); Hypokalemia; TRUDI (generalized anxiety disorder); Iron deficiency anemia secondary to inadequate dietary iron intake Start: 08-21-2023 Telephone encounter Naila CASILLAS Hematology/Oncology Start: 06-04-2023 End: 06-04-2023 Patient encounter procedure Mini Crystal PA-C Work Phone: [facility] Comment on above: Well adult exam ([facility] Dx); Encounter for lipid screening for cardiovascular disease; TRUDI (generalized anxiety disorder); Anemia during in third trimester; Acquired hypothyroidism; Hypokalemia; Situational stress; Hypothyroidism, unspecified type Start: 06-04-2023 End: 06-04-2023 Patient encounter status Mini Crystal PA-C Work Phone: [facility] Work Phone: Start: 04-21-2023 Telephone encounter [facility] MD [facility] Comment on above: Results Start: 04-20-2023 Patient encounter status Mayra Babb MD Work Phone: [facility] Work Phone: Start: 04-14-2023 Telephone encounter Maria M magana DO Work Phone: Hematology/Oncology Comment on above: Pain; Care Coordinat ion (ED follow up ) Start: 04-08-2023 Telephone encounter Maria M magana DO Work Phone: Hematology/Oncology Comment on above: Medication Problem Start: 01-05-2023 Telephone encounter Maria M magana DO Work Phone: Hematology/Oncology Comment on above: Results (CBC) Start: 12-26-2022 Telephone encounter Maria M magana DO Work Phone: Hematology/Oncology Comment on above: Weight Check (loveno x) Start: 11-03-2022 Telephone encounter Naila CASILLAS Hematology/Oncology Comment on above: Lovenox Start: 09-30-2022 Telephone encounter Mini vela PA-C Work Phone: [facility] Comment on above: Results Start: 09-25-2022 Telephone encounter Naila CASILLAS Hematology/Oncology Comment on above: Lovenox pick-up Start: 09-04-2022 Telephone encounter Naila CASILLAS Hematology/Oncology Comment on above: Lovenox Refill Start: 08-07-2022 Refill Ravinder hays MD Work Phone: [facility] Comment on above: Refill Request Start: 07-25-2022 Telephone encounter Naila CASILLAS Hematology/Oncology Comment on above: Refill Request Start: 07-17-2022 Telephone encounter Naila GREENW Hematology/Oncology Comment on above: Refill Request Start: 06-19-2022 Telephone encounter Allie sanchez MD Work Phone: OB/Gynecology Comment on above: Orders Start: 06-16-2022 End: 06-16-2022 Patient encounter procedure Jonny Terrazas MD Work Phone: OB/Gynecology Comment on above: Vaginal irritation ( Primary Dx) Start: 06-11-2022 Refill Allie Hall Work Phone: OB/Gynecology Comment on above: Refill Request Start: 05-29-2022 End: 05-29-2022 Patient encounter procedure Allie Rome MD Work Phone: OB/Gynecology Comment on above: care and examination (Primary Dx); Malaise and fatigue; History of anemia; History of hypothyroidism Start: 05-28-2022 Chart abstracting Maria M Quarles DO Work Phone: Hematology/Oncology Start: 05-27-2022 Telephone encounter Desiree Solano RN He matology/Oncology Comment on above: Punch Press Feeder - O ther (Symptoms ) Start: 04-25-2022 End: 04-25-2022 Patient encounter procedure Allie Rome MD Work Phone: OB/Gynecology Comment on above: state (Pr imary Dx); Hypothyroidism, unspecified type; History of maternal deep vein thrombosis (DVT) Start: 04-16-2022 Social Work Radha CASILLAS Hemat ology/Oncology Start: 04-15-2022 Telephone encounter Maria M magana DO Work Phone: Hematology/Oncology Comment on above: Patient Question Start: 04-11-2022 Telephone encounter Radha Whiteo PETER Gregorio Hematology/Oncology Comment on above: Patient Assistance Start: 04-04-2022 End: 04-04-2022 Patient encounter procedure Allie Rome MD Work Phone: OB/Gynecology Comment on above: 37 weeks gestation o f (Primary Dx); Supervision of high risk in third trimester; History of pulmonary embolism Start: 04-01-2022 End: 04-01-2022 Patient encounter procedure Emily Lay APRN.CNM Work Phone: OB/Gynecology Comment on above: 36 weeks gestation o f (Primary Dx); Supervision of high risk in third trimester Start: 03-27-2022 End: 03-27-2022 Patient encounter procedure Jonny Terrazas MD Work Phone: OB/Gynecology Comment on above: Supervision of high risk in third trimester (Primary Dx); 35 weeks gestation of Start: 03-26-2022 Telephone encounter Allie sanchez MD Work Phone: OB/Gynecology Comment on above: Orders Start: 03-24-2022 End: 03-24-2022 ambulatory Maria M Quarles DO Work Phone: Hematology/Oncology Comment on above: Iron deficiency anem ia during (Primary Dx); Anemia during in third trimester; PE (pulmonary thromboembolism) (HCC) Start: 03-24-2022 End: 03-24-2022 Patient encounter procedure Maria M Quarles DO Work Phone: [facility] Start: 03-20-2022 Orders Only Maria M Hall O Work Phone: Hematology/Oncology Comment on above: PE (pulmonary thromb oembolism) (HCC) (Primary Dx) Start: 03-19-2022 End: 03-19-2022 Patient encounter procedure Allie Rome MD Work Phone: OB/Gynecology Comment on above: 34 weeks gestation o f (Primary Dx); Supervision of high risk in third trimester; Hypothyroidism, unspecified type Start: 03-19-2022 End: 03-19-2022 ambulatory Treatment Rm 1 [facility] Work Phone: Hematology/Oncology Comment on above: Iron deficiency anem ia secondary to inadequate dietary iron intake (Primary Dx); Iron deficiency anemia during ; Iron malabsorption Start: 03-15-2022 Refill Allie Hall Work Phone: OB/Gynecology Comment on above: Refill Request Start: 03-14-2022 End: 03-14-2022 ambulatory Treatment Rm 2 [facility] Work Phone: Hematology/Oncology Comment on above: Iron deficiency anem ia secondary to inadequate dietary iron intake (Primary Dx); Iron deficiency anemia during ; Iron malabsorption Start: 03-12-2022 Telephone encounter Radha Gregorio Hematology/Oncology Comment on above: Patient Assistance Start: 03-11-2022 End: 03-12-2022 Patient encounter procedure [facility] Start: 03-11-2022 Telephone encounter Maria M magana DO Work Phone: Hematology/Oncology Comment on above: Appointment Patient Update Start: 03-06-2022 End: 03-06-2022 Patient encounter procedure Alyssa Goddard APRN.DIRECTOR OF PUBLICATIONS Work Phone: [facility] Start: 03-06-2022 End: 03-06-2022 ambulatory Treatment Rm 10 [facility] Work Phone: Hematology/Oncology Comment on above: Iron deficiency anem ia secondary to inadequate dietary iron intake (Primary Dx); Iron deficiency anemia during ; Iron malabsorption PE (pulmonary thromb oembolism) (HCC) (Primary Dx) Start: 03-05-2022 End: 03-05-2022 Patient encounter procedure Lizzeth Martin MD Work Phone: Maternal Medicine Comment on above: Suspected problem wi th growth not found (Primary Dx); 32 weeks gestation of 32 weeks gestation o f (Primary Dx); Supervision of high risk in third trimester; History of blood clots Start: 03-04-2022 End: 03-04-2022 ambulatory Treatment Rm 9 [facility] Work Phone: Hematology/Oncology Comment on above: Iron deficiency anem ia secondary to inadequate dietary iron intake (Primary Dx); Iron deficiency anemia during ; Iron malabsorption Start: 02-28-2022 End: 02-28-2022 ambulatory Treatment Rm 7 [facility] Work Phone: Hematology/Oncology Comment on above: Iron deficiency anem ia secondary to inadequate dietary iron intake (Primary Dx); Iron deficiency anemia during ; Iron malabsorption Start: 02-26-2022 End: 02-26-2022 ambulatory Treatment Rm 7 [facility] Work Phone: Hematology/Oncology Comment on above: Iron deficiency anem ia secondary to inadequate dietary iron intake (Primary Dx); Iron deficiency anemia during ; Iron malabsorption Start: 02-24-2022 End: 02-24-2022 Patient encounter procedure [facility] Start: 02-24-2022 Telephone encounter Bia zamora APRN.CNP Work Phone: OB/Gynecology Comment on above: Results Care (heada tanja) Start: 02-21-2022 End: 02-21-2022 ambulatory Treatment Rm 7 [facility] Work Phone: Hematology/Oncology Comment on above: Iron deficiency anem ia secondary to inadequate dietary iron intake (Primary Dx); Iron deficiency anemia during ; Iron malabsorption Start: 02-19-2022 End: 02-19-2022 Patient encounter procedure Allie Rome MD Work Phone: OB/Gynecology Comment on above: Supervision of high risk in third trimester (Primary Dx); 30 weeks gestation of Start: 02-19-2022 End: 02-19-2022 ambulatory Treatment Rm 7 [facility] Work Phone: Hematology/Oncology Comment on above: Iron deficiency anem ia secondary to inadequate dietary iron intake (Primary Dx); Iron deficiency anemia during ; Iron malabsorption Side Effects from Ir on Infusions Start: 02-14-2022 ambulatory Allie Hall Work Phone: OB/Gynecology Comment on above: My 8 hr Glucose test Start: 02-13-2022 Social Work Radha CASILLAS Hemat ology/Oncology Start: 02-12-2022 Telephone encounter Radha Gregorio Hematology/Oncology Comment on above: Social Work Services Start: 02-07-2022 Telephone encounter Allie sanchez MD Work Phone: OB/Gynecology Comment on above: Opened In Error Start: 02-06-2022 Telephone encounter Allie sanchez MD Work Phone: OB/Gynecology Comment on above: Question (OB Questio n) Start: 02-05-2022 End: 02-05-2022 Social Work Radha CASILLAS Hematology/Oncology Comment on above: Lovenox Shot Clinical Update (jimmie ght check) 28 weeks gestation o f (Primary Dx); Encounter for supervision of other normal in third trimester; Abnormal maternal glucose tolerance, antepartum Reply to your questi on. Start: 01-15-2022 Telephone encounter Allie sanchez MD Work Phone: OB/Gynecology Comment on above: Results Start: 01-09-2022 End: 01-09-2022 Social Work Radha CASILLAS Hematology/Oncology Comment on above: Patient Question 24 weeks gestation o f (Primary Dx); Supervision of high risk in second trimester; GBS bacteriuria Start: 01-03-2022 Telephone encounter Radha Gregorio Hematology/Oncology Comment on above: Social Work Services Start: 11-13-2021 Patient encounter status Radha CASILLAS [facility] Work Phone: Procedures Date Procedure Procedure Detail Performing Clinician Start: 05-16-2025 Radiologic exam ches t 2 views Maggie Lundberg SANITATION OFFICER.DRY HOUSE WORKER Work Phone: Start: 02-28-2025 Radiologic exam ches t 2 views Praful Guajardo MD Work Phone: Start: 02-15-2025 Radiologic exam ches t 2 views Ravinder Duncan SANITATION OFFICER.DIRECTOR OF PUBLICATIONS Work Phone: Start: 01-27-2025 Antibody screen RAVINEDR KEERTHI Comment on above: Order Comment: Speci men Type: BLOOD SPECIMENOrdering Facility: [facility] Address: [address] [place] [address] Performed By: #### T [id number] ####CC MAIN BLOOD BANKCLIA [id number] [address] [place] Start: 11-21-2024 Radex foot complete minimum 3 views Diane Mejia SANITATION OFFICER.DIRECTOR OF PUBLICATIONS Work Phone: Start: 11-04-2024 Antibody screen RAVINDER KEERTHI Comment on above: Order Comment: Speci men Type: BLOOD SPECIMENOrdering Facility: [facility] Address: [address] [place] [address] Performed By: #### T SCR30 ####CC MAIN BLOOD BANKCLIA [id number] [address] OF [place] Start: 05-31-2024 Ecg routine ecg w/le ast 12 lds i&r only [facility] Provider Start: 04-04-2022 URINE OB DIP B/O Allie durand MD Work Phone: Start: 04-01-2022 URINE OB DIP B/O Cecil Lay SANITATION OFFICER.CNM Work Phone: Start: 03-27-2022 Urnls dip stick/tabl et rgnt auto w/o microscopy Jonny Terrazas MD Work Phone: Start: 03-19-2022 URINE OB DIP B/O Allie durand MD Work Phone: Start: 03-05-2022 URINE OB DIP B/O Allie durand MD Work Phone: Start: 03-05-2022 Us preg uterus after 1st trimest 10/05 gestation Allie Rome MD Work Phone: Start: 02-19-2022 Culture bacterial quanttative colony count urine Allie Rome MD Work Phone: Start: 02-05-2022 URINE OB DIP B/O Allie durand MD Work Phone: Start: 01-09-2022 URINE OB DIP B/O Allie durand MD Work Phone: Laboratory test resu lt abnormal Abnormal laboratory test result Cherry Lance MD Work Phone: Plan of Treatment Date Care Activity Detail Author Start: 12-01-2029 Screening for malign ant neoplasm of cervix Cervical Cancer Screening [facility] Start: 06-30-2026 Urine microalbumin profile [facility] Start: 04-04-2026 Annual PCP Team [facility] eliecer Disease Visit Annual PCP Team Chronic Disease Visit [facility] Start: 11-30-2025 Annual PCP Team [facility] eliecer Disease Visit Annual PCP Team Chronic Disease Visit [facility] Start: 07-14-2025 End: 07-14-2025 ambulatory 07/14/2025 1:00 PM EDT Results Only [facility] [address] [place] [address] IRON LABS/CBC [facility] Comment on above: IRON LABS/CBC Start: 07-05-2025 End: 07-05-2025 Patient encounter procedure 07/05/2025 3:00 PM EDT Office Visit Vascular Medicine [id number] [place] [address] Nata Valle MD [address] [place] [address] follow up Vascular Medicine Comment on above: follow up Start: 06-17-2025 Annual PCP Team Chrome Plater eliecer Disease Visit Annual PCP Team Chronic Disease Visit [facility] Start: 05-31-2025 Annual PCP Team Chrome Plater eliecer Disease Visit Annual PCP Team Chronic Disease Visit [facility] Start: 05-31-2025 End: 02-28-2026 US Upper extremity veins US ARM VEIN DVT UNL VAS LAB Vascular Lab Routine TOS (thoracic outlet syndrome) Hematoma Expected: 05/31/2025, Expires: 02/28/2026 [facility] Work Phone: Comment on above: Expected: 05/31/2025 , Expires: 02/28/2026 Start: 05-22-2025 End: 05-22-2025 ambulatory 05/22/2025 2:30 PM EDT Infusion Center Hematology/Oncology [address] [place] [address] 2ND FLOOR Hematology/Oncology Comment on above: 2ND FLOOR Start: 05-22-2025 End: 05-22-2025 ambulatory 05/22/2025 9:15 AM EDT OT/PT/Speech Visit [facility] Physical Therapy [address] [place] [address] Chang Diggs, PT [address] [place] [address] TOS (thoracic outlet syndrome) [G54.0] [facility] Comment on above: TOS (thoracic outlet syndrome) [G54.0] Start: 05-19-2025 End: 05-19-2025 ambulatory 05/19/2025 9:00 AM EDT Infusion Center Hematology/Oncology [address] [place] [address] 2ND FLOOR Hematology/Oncology Comment on above: 2ND FLOOR Start: 05-17-2025 End: 05-17-2025 ambulatory 05/17/2025 11:00 AM EDT Infusion Center Hematology/Oncology [address] [place] [address] 2ND FLOOR Hematology/Oncology Comment on above: 2ND FLOOR Start: 05-16-2025 End: 05-16-2025 Patient encounter procedure Radiology Comment on above: Dx:TOS Start: 05-15-2025 End: 05-15-2025 ambulatory 05/15/2025 2:30 PM EDT Infusion Center Hematology/Oncology [address] [place] [address] 2ND FLOOR Hematology/Oncology Comment on above: 2ND FLOOR Start: 05-12-2025 End: 05-12-2025 ambulatory 05/12/2025 9:00 AM EDT Infusion Center Hematology/Oncology [address] [place] [address] 2ND FLOOR Hematology/Oncology Comment on above: 2ND FLOOR Start: 05-10-2025 Annual PCP Team Chrome Plater eliecer Disease Visit Annual PCP Team Chronic Disease Visit [facility] Start: 05-08-2025 End: 05-08-2025 ambulatory 05/08/2025 9:15 AM EDT OT/PT/Speech Visit [facility] Physical Therapy [address] [place] [address] Chang Diggs, PT [address] [facility] [place] [id number] TOS (thoracic outlet syndrome) [G54.0] [facility] Physical Therapy Comment on above: TOS (thoracic outlet syndrome) [G54.0] Start: 05-04-2025 End: 05-04-2025 ambulatory 05/04/2025 2:30 PM EDT Visit (SP) Office Hematology/Oncology [address] [place], [place] [id number] Kait Stubbs [address] [place] [address] OV/LOW IRON* Hematology/Oncology Comment on above: OV/LOW IRON* Start: 04-24-2025 End: 04-24-2025 ambulatory 04/24/2025 8:30 AM EDT OT/PT/Speech Visit [facility] Physical Therapy [address] [place] [address] Chang Diggs, PT [address] [place], [place] [id number] TOS (thoracic outlet syndrome) [G54.0] [facility] Physical Therapy Comment on above: TOS (thoracic outlet syndrome) [G54.0] Start: 04-17-2025 End: 04-17-2025 ambulatory 04/17/2025 8:30 AM EDT OT/PT/Speech Visit [facility] Physical Therapy [address] [place], [place] [address] Chang Diggs, PT [address] [place], [place] [address] TOS (thoracic outlet syndrome) [G54.0] [facility] Physical Therapy Comment on above: TOS (thoracic outlet syndrome) [G54.0] Start: 04-11-2025 End: 04-11-2025 Patient encounter procedure Vascular Surgery Comment on above: TOS (thoracic outlet syndrome) [G54.0] Start: 04-10-2025 End: 04-10-2025 ambulatory 04/10/2025 8:30 AM EDT OT/PT/Speech Visit [facility] Physical Therapy [address] [place] [address] Chang Diggs, LIA [address] [place] [address] TOS (thoracic outlet syndrome) [G54.0] [facility] Physical Therapy Comment on above: TOS (thoracic outlet syndrome) [G54.0] Start: 04-05-2025 End: 04-05-2025 Follow-up encounter 04/05/2025 11:15 AM EDT [facility] Vascular Medicine [address] [place] [address] Nata Valle MD [address] [place] [address] 2 week follow up Vascular Medicine Comment on above: 2 week follow up Start: 04-04-2025 End: 07-04-2025 Iron and Iron binding capacity panel - Serum or Plasma IRON AND TIBC Lab Routine Acquired hypothyroidism TOS (thoracic outlet syndrome) Current use of assisted 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 History of pulmonary embolus (PE) Expected: 04/04/2025, Expires: 07/04/2025 [facility] Comment on above: Expected: 04/04/2025 , Expires: 07/04/2025 Start: 04-04-2025 End: 07-04-2025 Thyrotropin [Units/volume] in Serum or Plasma THYROID STIMULATING HORMONE Lab Routine Acquired hypothyroidism TOS (thoracic outlet syndrome) Current use of assisted 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 History of pulmonary embolus (PE) Expected: 04/04/2025, Expires: 07/04/2025 [facility] Comment on above: Expected: 04/04/2025 , Expires: 07/04/2025 Start: 04-04-2025 End: 07-04-2025 Thyroxine (T4) free [Mass/volume] in Serum or Plasma T4 FREE/FREE THYROXINE Lab Routine Acquired hypothyroidism TOS (thoracic outlet syndrome) 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 History of pulmonary embolus (PE) Expected: 04/04/2025, Expires: 07/04/2025 [facility] Work Phone: Comment on above: Expected: 04/04/2025 , Expires: 07/04/2025 Start: 04-04-2025 End: 07-04-2025 Triiodothyronine (T3) Free [Mass/volume] in Serum or Plasma T3, FREE Lab Routine Acquired hypothyroidism TOS (thoracic outlet syndrome) 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 History of pulmonary embolus (PE) Expected: 04/04/2025, Expires: 07/04/2025 [facility] Comment on above: Expected: 04/04/2025 , Expires: 07/04/2025 Start: 04-04-2025 End: 04-04-2025 Patient encounter procedure 04/04/2025 9:45 AM EDT Office Visit Vascular Medicine [address] [place] [address] Nata Valle MD [address] [place] [address] DVT/PE Vascular Medicine Comment on above: DVT/PE Start: 04-04-2025 End: 04-04-2025 ambulatory 04/04/2025 8:50 AM EDT Visit (SP) Office Hematology/Oncology [address] [place], [place] [phone] Maria M Quarles DO [address] [place], [place] [phone] 2MO OV Hematology/Oncology Comment on above: 2MO OV Start: 03-30-2025 End: 03-30-2025 Follow-up encounter 03/30/2025 10:45 AM EDT [facility] Vascular Medicine [address] [facility] [place] [address] Nata Valle MD [address] [place] [address] 4 week follow up Vascular Medicine Comment on above: 4 week follow up Start: 03-29-2025 End: 03-29-2025 Patient encounter procedure 03/29/2025 10:00 AM EDT Office Visit [facility] [address] [place] [address] Ann Dickinson PA-C [address] [place] [address] f/u 4 month [facility] Comment on above: f/u 4 month Start: 03-27-2025 End: 03-27-2025 ambulatory 03/27/2025 9:30 AM EDT OT/PT/Speech Visit [facility] Physical Therapy [address] [place] [address] Huyen Villela, MONOTYPE OPERATOR [address] [place] [address] TOS (thoracic outlet syndrome) [G54.0] [facility] Physical Therapy Comment on above: TOS (thoracic outlet syndrome) [G54.0] Start: 03-24-2025 End: 03-24-2025 Patient encounter procedure Vascular Surgery Comment on above: 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 ( Start: 03-23-2025 End: 03-23-2025 ambulatory 03/23/2025 10:00 AM EDT OT/PT/Speech Visit [facility] Physical Therapy [address] [place] [address] Chang Diggs, PT [address] [place] [address] Thoracic outlet syndrome [G54.0] [facility] Physical Therapy Comment on above: Thoracic outlet synd denis [G54.0] Start: 03-16-2025 End: 03-16-2025 ambulatory 03/16/2025 10:00 AM EDT OT/PT/Speech Visit [facility] Physical Therapy [address] [place] [address] Chang Diggs, PT [address] [place] [address] Thoracic outlet syndrome [G54.0] [facility] Physical Therapy Comment on above: Thoracic outlet synd denis [G54.0] Start: 03-16-2025 End: 03-16-2025 Follow-up encounter 03/16/2025 8:00 AM EDT [facility] Vascular Medicine [address] [place] [address] Nata Valle MD [address] [place], [place] [phone] 4 week follow up Vascular Medicine Comment on above: 4 week follow up Start: 03-08-2025 End: 03-08-2025 ambulatory 03/08/2025 6:00 PM EDT OT/PT/Speech Visit [facility] Physical Therapy [address] [place] [address] Thais Mishra, PT, DPT Thoracic outlet syndrome [G54.0] [facility] Physical Therapy Comment on above: Thoracic outlet synd denis [G54.0] Start: 03-01-2025 End: 03-01-2025 ambulatory 03/01/2025 11:45 AM EDT OT/PT/Speech Visit [facility] Physical Therapy [address] [place] [address] Huyen Villela, MONOTYPE OPERATOR [address] [place] [address] Thoracic outlet syndrome [G54.0] [facility] Physical Therapy Comment on above: Thoracic outlet synd denis [G54.0] Start: 02-28-2025 End: 02-28-2025 Patient encounter procedure Vascular Surgery Comment on above: 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 ( Start: 02-28-2025 End: 02-28-2025 Patient encounter procedure 02/28/2025 10:30 AM EDT Office Visit Vascular Medicine [address] [facility] [place] [address] Nata Valle MD [address] [place] [phone] DVT/PE Vascular Medicine Comment on above: DVT/PE Start: 02-24-2025 End: 02-24-2025 ambulatory 02/24/2025 9:30 AM EDT OT/PT/Speech Visit [facility] Physical Therapy [address] [place] [address] Huyen Villela, MONOTYPE OPERATOR [address] [place] [address] Thoracic outlet syndrome [G54.0] [facility] Physical Therapy Comment on above: Thoracic outlet synd denis [G54.0] Start: 02-13-2025 End: 05-15-2025 Hematocrit [Volume Fraction] of Blood HEMATOCRIT Lab Routine Acute blood loss anemia Expected: 02/13/2025, Expires: 05/15/2025 [facility] Comment on above: Expected: 02/13/2025 , Expires: 05/15/2025 Start: 02-13-2025 End: 05-15-2025 Hemoglobin [Mass/volume] in Blood HEMOGLOBIN Lab Routine Acute blood loss anemia Expected: 02/13/2025, Expires: 05/15/2025 [facility] Work Phone: Comment on above: Expected: 02/13/2025 , Expires: 05/15/2025 Start: 02-01-2025 End: 02-01-2025 Admission to same day surgery center 02/01/2025 1:41 PM EDT - 02/01/2025 7:37 PM EDT Surgery Admitting [address] [place] [address] Praful Guajardo MD [address] [facility] [address] [place] [address] EXCISION RIB FIRST AND/OR CERVICAL Admitting Comment on above: EXCISION RIB FIRST A ND/OR CERVICAL Start: 02-01-2025 End: 02-01-2025 Excision 1st &/cervical rib EXCISION RIB FIRST AND/OR CERVICAL Thoracic outlet syndrome 02/01/2025 1:41 PM EDT [facility] VAS Start: 02-01-2025 Subsequent hospital visit by physician Admitting Comment on above: Thoracic outlet synd denis [G54.0] Start: 01-31-2025 End: 01-31-2025 ambulatory 01/31/2025 11:30 AM EDT Visit (SP) Office Hematology/Oncology [address] [place], [place] [phone] Maria M Quarles DO [address] [place] [address] 3 MO OV* Hematology/Oncology Comment on above: 3 MO OV* Start: 01-27-2025 End: 01-27-2025 ambulatory 01/27/2025 10:15 AM EDT Results Only [place] [address] [address] [place] [address] Pre-Op Labs [place] [address] Draw [address] Comment on above: Pre-Op Labs Start: 01-27-2025 End: 01-27-2025 Patient encounter procedure Vascular Surg Dept Comment on above: Pre-Op H&P/Teaching Pre-Op Vascular Anes thesia Pre-Op EKG Pre-Op Start: 01-18-2025 End: 04-19-2025 Basic metabolic 2000 panel - Serum or Plasma BASIC METABOLIC PANEL Lab Routine Thoracic outlet syndrome Preop examination Expected: 01/18/2025 (Approximate), Expires: 04/19/2025 [facility] Work Phone: Comment on above: Expected: 01/18/2025 (Approximate), Expires: 04/19/2025 Start: 01-18-2025 End: 04-19-2025 CBC W Auto Differential panel - Blood COMPLETE BLOOD COUNT AND DIFFERENTIAL Lab Routine Thoracic outlet syndrome Preop examination Expected: 01/18/2025 (Approximate), Expires: 04/19/2025 [facility] Comment on above: Expected: 01/18/2025 (Approximate), Expires: 04/19/2025 Start: 01-18-2025 End: 04-19-2025 Choriogonadotropin.beta subunit [Units/volume] in Serum or Plasma HCG QUANTITATIVE Lab Routine Thoracic outlet syndrome Preop examination Expected: 01/18/2025 (Approximate), Expires: 04/19/2025 [facility] Comment on above: Expected: 01/18/2025 (Approximate), Expires: 04/19/2025 Start: 01-18-2025 End: 12-03-2025 ECG COMPLETE ECG COMPLETE ECG Routine Thoracic outlet syndrome Preop examination Expected: 01/18/2025, Expires: 12/03/2025 [facility] Comment on above: Expected: 01/18/2025 , Expires: 12/03/2025 Start: 01-18-2025 End: 04-19-2025 STAPHYLOCOCCUS AUREUS & MRSA SCREEN, PCR, NASAL STAPHYLOCOCCUS AUREUS & MRSA SCREEN, PCR, NASAL Lab Routine Thoracic outlet syndrome Preop examination Expected: 01/18/2025 (Approximate), Expires: 04/19/2025 [facility] Comment on above: Expected: 01/18/2025 (Approximate), Expires: 04/19/2025 Start: 01-18-2025 End: 04-19-2025 TYPE AND SCREEN,30 DAY TYPE AND SCREEN,30 DAY Blood Bank Routine Thoracic outlet syndrome Preop examination Expected: 01/18/2025 (Approximate), Expires: 04/19/2025 [facility] Comment on above: Expected: 01/18/2025 (Approximate), Expires: 04/19/2025 Start: 01-07-2025 Annual PCP Team Chrome Plater eliecer Disease Visit Annual PCP Team Chronic Disease Visit [facility] Start: 12-01-2024 End: 12-01-2024 Patient encounter procedure 12/01/2024 2:00 PM EST Office Visit OB/Gynecology [address] [place] [phone] Jonny Terrazas MD [address] [place] [phone] Cervical Cancer Screening OB/Gynecology Comment on above: Cervical Cancer Scre ening Start: 11-30-2024 End: 11-30-2024 Patient encounter procedure 11/30/2024 2:40 PM EST Office Visit [facility] [address] [place] [address] Ann Dickinson PA-C [address] [place] [address] new pcp [facility] Comment on above: new pcp Start: 11-29-2024 End: 11-29-2024 ambulatory 11/29/2024 2:15 PM EST OT/PT/Speech Visit [facility] Physical Therapy [address] [place] [address] O'Estefania Harris, PT Thoracic outlet syndrome [G54.0 [facility] Physical Therapy Comment on above: Thoracic outlet synd denis [G54.0 Start: 11-22-2024 End: 11-22-2024 ambulatory 11/22/2024 5:15 PM EST OT/PT/Speech Visit [facility] Physical Therapy [address] [place] [address] O'StevenCaitlinEstefania, PT Thoracic outlet syndrome [G54.0 [facility] Physical Therapy Comment on above: Thoracic outlet synd denis [G54.0 Start: 11-17-2024 End: 02-16-2025 Thyrotropin [Units/volume] in Serum or Plasma THYROID STIMULATING HORMONE Lab Routine Acquired hypothyroidism Expected: 11/17/2024, Expires: 02/16/2025 [facility] Work Phone: Comment on above: Expected: 11/17/2024 , Expires: 02/16/2025 Start: 11-17-2024 End: 11-17-2024 Admission to same day surgery center 11/17/2024 7:30 AM EST - 11/17/2024 8:15 AM EST Surgery Surgery [address] [place] [address] Praful Guajardo MD [address] Desk [address] [address] VENOGRAM EXTREMITY UPPER Surgery Comment on above: VENOGRAM EXTREMITY U PPER Start: 11-17-2024 End: 11-17-2024 Slctv cath plmt everette sys 2nd order/> slctv branc VENOGRAM EXTREMITY UPPER TOS (thoracic outlet syndrome) 11/17/2024 7:30 AM EST MM OR Start: 11-17-2024 Subsequent hospital visit by physician 11/17/2024 7:30 AM EST Hospital Encounter Surgery [address] [place] [address] Praful Guajardo MD [address] [place] [address] TOS (thoracic outlet syndrome) [G54.0] Surgery Comment on above: TOS (thoracic outlet syndrome) [G54.0] Start: 11-15-2024 End: 11-15-2024 ambulatory 11/15/2024 2:15 PM EST OT/PT/Speech Visit [facility] Physical Therapy [address] [place], [place] [address] O'Steven, Estefania, PT Thoracic outlet syndrome [G54.0 [facility] Physical Therapy Comment on above: Thoracic outlet synd denis [G54.0 Start: 11-11-2024 End: 11-11-2024 Patient encounter procedure 11/11/2024 10:00 AM EST Office Visit Vascular Surg Dept [address] [place] [phone] Praful Guajardo MD [address] Des[address] [place] [phone] TOS Vascular Surg Dept Comment on above: TOS Start: 11-08-2024 End: 11-08-2024 ambulatory 11/08/2024 6:00 PM EST OT/PT/Speech Visit [facility] Physical Therapy [address] [place], [place] [phone] O'Steven, Estefania, PT Thoracic outlet syndrome [G54.0 [facility] Physical Therapy Comment on above: Thoracic outlet synd denis [G54.0 Start: 11-06-2024 Annual PCP Team Chrome Plater eliecer Disease Visit Annual PCP Team Chronic Disease Visit [facility] Start: 11-04-2024 End: 11-04-2024 Anesthesia consultation 11/04/2024 2:00 PM EST PAT Pre Anesthesia [address] [facility] [place] [address] 1, Pacc [place] [address] [place] [address] DOS 2.13.25 Pre Anesthesia Comment on above: DOS 2.13.25 Start: 11-02-2024 End: 11-02-2024 ambulatory 11/02/2024 10:45 AM EST OT/PT/Speech Visit [facility] Physical Therapy [address] [facility] [place] [address] Matt Toledo, PT [address] [facility] [address] Bilateral Thoratic Outlet Syndrome [facility] Physical Therapy Comment on above: Bilateral Thoratic O utlet Syndrome Start: 10-31-2024 End: 10-31-2024 ambulatory 10/31/2024 3:45 PM EST Results Only [facility] Draw Station [address] [facility] [place] [address] LABS* send pt to hem/onc after labs please [facility] Draw Station Comment on above: LABS* send pt to hem /onc after labs please Start: 10-31-2024 End: 01-30-2025 LMW Heparin [Units/volume] in Platelet poor plasma LMW ANTI XA ASSAY Lab Routine Deep vein thrombosis (DVT) of other vein of right upper extremity, unspecified chronicity (HCC) Expected: 10/31/2024, Expires: 01/30/2025 [facility] Work Phone: Comment on above: Expected: 10/31/2024 , Expires: 01/30/2025 Start: 10-31-2024 End: 10-31-2024 ambulatory 10/31/2024 8:30 AM EST Visit (SP) Office Hematology/Oncology [address] [facility] [place] [address] Maria M Quarles, DO [address] [place] [phone] 1 MO OV* Hematology/Oncology Comment on above: 1 MO OV* Start: 10-25-2024 End: 01-24-2025 Basic metabolic 2000 panel - Serum or Plasma BASIC METABOLIC PANEL Lab Routine TOS (thoracic outlet syndrome) Expected: 10/25/2024 (Approximate), Expires: 01/24/2025 [facility] Comment on above: Expected: 10/25/2024 (Approximate), Expires: 01/24/2025 Start: 10-25-2024 End: 01-24-2025 CBC W Auto Differential panel - Blood COMPLETE BLOOD COUNT AND DIFFERENTIAL Lab Routine TOS (thoracic outlet syndrome) Expected: 10/25/2024 (Approximate), Expires: 01/24/2025 [facility] Work Phone: Comment on above: Expected: 10/25/2024 (Approximate), Expires: 01/24/2025 Start: 10-25-2024 End: 01-24-2025 Choriogonadotropin.beta subunit [Units/volume] in Serum or Plasma HCG QUANTITATIVE Lab Routine TOS (thoracic outlet syndrome) Expected: 10/25/2024 (Approximate), Expires: 01/24/2025 [facility] Comment on above: Expected: 10/25/2024 (Approximate), Expires: 01/24/2025 Start: 10-25-2024 End: 01-24-2025 TYPE AND SCREEN,30 DAY TYPE AND SCREEN,30 DAY Blood Bank Routine TOS (thoracic outlet syndrome) Expected: 10/25/2024 (Approximate), Expires: 01/24/2025 [facility] Comment on above: Expected: 10/25/2024 (Approximate), Expires: 01/24/2025 Start: 10-25-2024 End: 10-25-2024 ambulatory 10/25/2024 11:30 AM EST Visit (SP) Office Hematology/Oncology [address] [place] [phone] Maria M Quarles, DO [address] [facility] [place] [phone] 1MO OV Hematology/Oncology Comment on above: 1MO OV Start: 10-25-2024 End: 10-25-2024 Patient encounter procedure Vascular Surg Dept Comment on above: tos vTOS (and possible n TOS) Start: 10-18-2024 End: 10-18-2024 Follow-up encounter 10/18/2024 9:00 AM EST [facility] Vascular Medicine [address] [place] [address] Nata Valle MD [address] [place], [place] [phone] Follow up Vascular Medicine Comment on above: Follow up Start: 10-04-2024 Behavioral Health Screening Behavioral Health Screening [facility] Comment on above: Postponed from 10/05 (Declined at this time) Start: 10-04-2024 [facility] Comment on above: Postponed from 10/05 (Declined at this time) Start: 09-19-2024 End: 09-19-2024 Follow-up encounter 09/19/2024 10:00 AM EST Visit (SP) Office Hematology/Oncology [address] [place], [place] [phone] Kait Stubbs [address] [place], [place] [phone] ER FOLLOW UP Hematology/Oncology Comment on above: ER FOLLOW UP Start: 07-17-2024 End: 10-16-2024 Thyrotropin [Units/volume] in Serum or Plasma THYROID STIMULATING HORMONE Lab Routine Acquired hypothyroidism Expected: 07/17/2024, Expires: 10/16/2024 [facility] Work Phone: Comment on above: Expected: 07/17/2024 , Expires: 10/16/2024 Start: 07-14-2024 HPV TESTING HPV TESTING [facility] Start: 07-14-2024 PAP TESTING PAP TESTING [facility] Start: 07-14-2024 Screening for malign ant neoplasm of cervix [facility] Start: 06-24-2024 End: 06-24-2024 ambulatory 06/24/2024 10:40 AM EDT Visit (SP) Office Hematology/Oncology [address] [place] [address] Maria M Quarles DO [address] [place] [address] 6 MO OV* Hematology/Oncology Comment on above: 6 MO OV* Start: 06-17-2024 End: 06-17-2024 Patient encounter procedure 06/17/2024 10:00 AM EDT Office Visit Family Medicine [place] [address] [facility] [place], [place] [address] Leora Balderas APRN.DIRECTOR OF PUBLICATIONS [address] [place], [place] [phone] Hospital Follow Up [facility] Comment on above: Hospital Follow Up Start: 06-05-2024 Covid-19 Vaccine ( season) Covid-19 Vaccine () [facility] Start: 06-05-2024 Covid-19 Vaccine ( season) Covid-19 Vaccine () [facility] Start: 06-04-2024 ANNUAL PCP TEAM SUPERVISOR WRAPPING ROOM ELIECER DISEASE VISIT ANNUAL PCP TEAM CHRONIC DISEASE VISIT [facility] Start: 06-03-2024 End: 06-03-2024 Patient encounter procedure 06/03/2024 1:50 PM EDT Office Visit Cardiology [address] [place] [address] echo Cardiology Comment on above: echo Start: 05-31-2024 End: 05-31-2024 Patient encounter procedure 05/31/2024 2:20 PM EDT Office Visit Family Medicine [place] [address] [facility] [place], [place] [phone] Leora Balderas APRN.DIRECTOR OF PUBLICATIONS [address] [place], [place] [phone] talk about meds Family Medicine [place] Comment on above: talk about meds Start: 05-27-2024 End: 05-27-2024 Patient encounter procedure 05/27/2024 10:30 AM EDT Office Visit Cardiology [address] [place] [address] echo Cardiology Comment on above: echo Start: 05-11-2024 End: 05-11-2024 Patient encounter procedure 05/11/2024 2:00 PM EDT Office [place] [address] pfa [employer] [facility] [facility] Comment on above: pfa Start: 05-10-2024 End: 08-09-2024 CBC W Auto Differential panel - Blood COMPLETE BLOOD COUNT AND DIFFERENTIAL Lab Routine Iron deficiency anemia secondary to inadequate dietary iron intake Expected: 05/10/2024, Expires: 08/09/2024 [facility] Comment on above: Expected: 05/10/2024 , Expires: 08/09/2024 Start: 05-10-2024 End: 08-09-2024 Comprehensive metabolic 2000 panel - Serum or Plasma COMPREHENSIVE METABOLIC PANEL Lab Routine SANDOVAL (dyspnea on exertion) Expected: 05/10/2024, Expires: 08/09/2024 [facility] Comment on above: Expected: 05/10/2024 , Expires: 08/09/2024 Start: 05-10-2024 End: 08-09-2024 Iron and Iron binding capacity panel - Serum or Plasma IRON AND TIBC Lab Routine Iron deficiency anemia secondary to inadequate dietary iron intake Expected: 05/10/2024, Expires: 08/09/2024 [facility] Comment on above: Expected: 05/10/2024 , Expires: 08/09/2024 Start: 05-10-2024 End: 08-09-2024 Thyrotropin [Units/volume] in Serum or Plasma THYROID STIMULATING HORMONE Lab Routine Acquired hypothyroidism Expected: 05/10/2024, Expires: 08/09/2024 [facility] Work Phone: Comment on above: Expected: 05/10/2024 , Expires: 08/09/2024 Start: 05-10-2024 End: 05-10-2024 Patient encounter procedure 05/10/2024 10:00 AM EDT Office Visit [facility] [address] [place] [address] Mini Crystal PA-C [address] [place] [address] 6 mo follow up [facility] Comment on above: 6 mo follow up Start: 04-20-2024 ANNUAL PCP TEAM SUPERVISOR WRAPPING ROOM ELIECER DISEASE VISIT ANNUAL PCP TEAM CHRONIC DISEASE VISIT [facility] Start: 02-28-2024 End: 05-29-2024 C reactive protein [Mass/volume] in Serum or Plasma C-REACTIVE PROTEIN Lab Routine Low serum complement C4 Abnormal laboratory test result Expected: 02/28/2024, Expires: 05/29/2024 [facility] Comment on above: Expected: 02/28/2024 , Expires: 05/29/2024 Start: 02-28-2024 End: 05-29-2024 Complement C1 esterase inhibitor [Mass/volume] in Serum or Plasma C1 ESTERASE INHIBIT Lab Routine Low serum complement C4 Abnormal laboratory test result Expected: 02/28/2024, Expires: 05/29/2024 [facility] Comment on above: Expected: 02/28/2024 , Expires: 05/29/2024 Start: 02-28-2024 End: 05-29-2024 Complement C1 esterase inhibitor.functional/Comp lement C1 esterase inhibitor.total in Serum or Plasma C1 ESTERASE INHIB FU Lab Routine Low serum complement C4 Abnormal laboratory test result Expected: 02/28/2024, Expires: 05/29/2024 [facility] Comment on above: Expected: 02/28/2024 , Expires: 05/29/2024 Start: 02-28-2024 End: 05-29-2024 Complement C3 [Mass/volume] in Serum or Plasma C3 COMPLEMENT Lab Routine Low serum complement C4 Abnormal laboratory test result Expected: 02/28/2024, Expires: 05/29/2024 [facility] Comment on above: Expected: 02/28/2024 , Expires: 05/29/2024 Start: 02-28-2024 End: 05-29-2024 Complement C4 [Mass/volume] in Serum or Plasma C4 COMPLEMENT Lab Routine Low serum complement C4 Abnormal laboratory test result Expected: 02/28/2024, Expires: 05/29/2024 [facility] Work Phone: Comment on above: Expected: 02/28/2024 , Expires: 05/29/2024 Start: 02-28-2024 End: 05-29-2024 Erythrocyte sedimentation rate SEDIMENTATION RATE, WESTERGREN Lab Routine Low serum complement C4 Abnormal laboratory test result Expected: 02/28/2024, Expires: 05/29/2024 [facility] Comment on above: Expected: 02/28/2024 , Expires: 05/29/2024 Start: 02-28-2024 End: 05-29-2024 Nuclear Ab [Presence] in Serum by Immunoassay ENDY BLOOD Lab Routine Low serum complement C4 Abnormal laboratory test result Expected: 02/28/2024, Expires: 05/29/2024 [facility] Comment on above: Expected: 02/28/2024 , Expires: 05/29/2024 Start: 02-19-2024 End: 02-19-2024 Patient encounter procedure 02/19/2024 10:00 AM EDT Office Visit [facility] [address], [place] [id number] Leora Balderas APRN.[facility] [address] [place], [place] [id number] 6 week med follow up [facility] Comment on above: 6 week med follow up Start: 01-22-2024 End: 04-22-2024 MISC SEND OUT TST 2 MISC SEND OUT TST 2 Lab Routine Adverse reaction to food, subsequent encounter Expected: 01/22/2024, Expires: 04/22/2024 [facility] Work Phone: Comment on above: Expected: 01/22/2024 , Expires: 04/22/2024 Start: 12-03-2023 End: 02-02-2024 LIPID PANEL, NONFASTING LIPID PANEL, NONFASTING Lab Routine Encounter for lipid screening for cardiovascular disease Expected: 12/03/2023, Expires: 02/02/2024 [facility] Work Phone: Comment on above: Expected: 12/03/2023 , Expires: 02/02/2024 Start: 11-06-2023 End: 02-05-2024 Basic metabolic 2000 panel - Serum or Plasma BASIC METABOLIC PNL Lab Routine Hypokalemia Expected: 11/06/2023, Expires: 02/05/2024 [facility] Work Phone: Comment on above: Expected: 11/06/2023 , Expires: 02/05/2024 Start: 11-06-2023 End: 02-05-2024 CBC W Auto Differential panel - Blood CBC + DIFF Lab Routine Iron deficiency anemia secondary to inadequate dietary iron intake Expected: 11/06/2023, Expires: 02/05/2024 [facility] Work Phone: Comment on above: Expected: 11/06/2023 , Expires: 02/05/2024 Start: 11-06-2023 End: 02-05-2024 Iron and Iron binding capacity panel - Serum or Plasma IRON + TIBC Lab Routine Iron deficiency anemia secondary to inadequate dietary iron intake Expected: 11/06/2023, Expires: 02/05/2024 [facility] Work Phone: Comment on above: Expected: 11/06/2023 , Expires: 02/05/2024 Start: 10-04-2023 [facility] Comment on above: Postponed from 10/05 (Declined at this time) Start: 06-22-2023 End: 08-22-2023 Thyrotropin [Units/volume] in Serum or Plasma TSH BLD Lab Routine Hypothyroidism, unspecified type Expected: 06/22/2023, Expires: 08/22/2023 [facility] Work Phone: Comment on above: Expected: 06/22/2023 , Expires: 08/22/2023 Start: 06-05-2023 Covid-19 Vaccine () Covid-19 Vaccine () [facility] Start: 12-29-2022 End: 02-28-2023 CBC W Auto Differential panel - Blood CBC + DIFF Lab STAT Iron deficiency anemia secondary to inadequate dietary iron intake Expected: 12/29/2022, Expires: 02/28/2023 [facility] Work Phone: Comment on above: Expected: 12/29/2022 , Expires: 02/28/2023 Start: 11-25-2022 End: 01-25-2023 Thyrotropin [Units/volume] in Serum or Plasma TSH BLD Lab Routine Hypothyroidism, unspecified type Expected: 11/25/2022, Expires: 01/25/2023 [facility] Work Phone: Comment on above: Expected: 11/25/2022 , Expires: 01/25/2023 Start: 11-13-2022 ANNUAL PCP TEAM SUPERVISOR WRAPPING ROOM ELIECER DISEASE VISIT ANNUAL PCP TEAM CHRONIC DISEASE VISIT [facility] Start: 10-05-2022 DEPRESSION ASSESSMENT DEPRESSION ASS ESSMENT [facility] Start: 06-16-2022 End: 08-16-2022 Trichomonas vaginalis Ag [Presence] in Genital specimen by Immunoassay TRICHOMONAS PREP/ANTIGEN Microbiology Routine Vaginal irritation Expected: 06/16/2022, Expires: 08/16/2022 [facility] Work Phone: Comment on above: Expected: 06/16/2022 , Expires: 08/16/2022 Start: 05-29-2022 End: 07-29-2022 CBC panel - Blood by Automated count CBC Lab Routine care and examination Malaise and fatigue History of anemia Expected: 05/29/2022, Expires: 07/29/2022 [facility] Work Phone: Comment on above: Expected: 05/29/2022 , Expires: 07/29/2022 Start: 05-29-2022 End: 07-29-2022 Thyrotropin [Units/volume] in Serum or Plasma TSH BLD Lab Routine care and examination Malaise and fatigue History of hypothyroidism Expected: 05/29/2022, Expires: 07/29/2022 [facility] Work Phone: Comment on above: Expected: 05/29/2022 , Expires: 07/29/2022 Start: 04-25-2022 End: 06-25-2022 Thyrotropin [Units/volume] in Serum or Plasma [facility] Work Phone: Comment on above: Expected: 04/25/2022 , Expires: 06/25/2022 Start: 04-25-2022 End: 06-25-2022 Thyroxine (T4) free [Mass/volume] in Serum or Plasma [facility] Work Phone: Comment on above: Expected: 04/25/2022 , Expires: 06/25/2022 Start: 03-24-2022 End: 05-24-2022 CBC W Auto Differential panel - Blood CBC + DIFF Lab STAT PE (pulmonary thromboembolism) (HCC) Expected: 03/24/2022, Expires: 05/24/2022 [facility] Work Phone: Comment on above: Expected: 03/24/2022 , Expires: 05/24/2022 Start: 03-24-2022 End: 05-24-2022 Ferritin [Mass/volume] in Serum or Plasma FERRITIN BLD Lab Routine PE (pulmonary thromboembolism) (HCC) Expected: 03/24/2022, Expires: 05/24/2022 [facility] Work Phone: Comment on above: Expected: 03/24/2022 , Expires: 05/24/2022 Start: 03-24-2022 End: 05-24-2022 Iron and Iron binding capacity panel - Serum or Plasma IRON + TIBC Lab Routine PE (pulmonary thromboembolism) (HCC) Expected: 03/24/2022, Expires: 05/24/2022 [facility] Work Phone: Comment on above: Expected: 03/24/2022 , Expires: 05/24/2022 Start: 03-19-2022 End: 05-19-2022 Thyrotropin [Units/volume] in Serum or Plasma TSH BLD Lab Routine 34 weeks gestation of Supervision of high risk in third trimester Hypothyroidism, unspecified type Expected: 03/19/2022, Expires: 05/19/2022 [facility] Work Phone: Comment on above: Expected: 03/19/2022 , Expires: 05/19/2022 Start: 03-04-2022 End: 05-04-2022 CBC W Auto Differential panel - Blood CBC + DIFF Lab STAT Iron deficiency anemia secondary to inadequate dietary iron intake Iron deficiency anemia during Iron malabsorption Expected: 03/04/2022, Expires: 05/04/2022 [facility] Work Phone: Comment on above: Expected: 03/04/2022 , Expires: 05/04/2022 Start: 03-04-2022 End: 05-04-2022 FERRITIN BLD FERRITIN BLD Lab Routine Iron deficiency anemia secondary to inadequate dietary iron intake Iron deficiency anemia during Iron malabsorption Expected: 03/04/2022, Expires: 05/04/2022 [facility] Work Phone: Comment on above: Expected: 03/04/2022 , Expires: 05/04/2022 Start: 03-04-2022 End: 05-04-2022 IRON + TIBC IRON + TIBC Lab Routine Iron deficiency anemia secondary to inadequate dietary iron intake Iron deficiency anemia during Iron malabsorption Expected: 03/04/2022, Expires: 05/04/2022 [facility] Work Phone: Comment on above: Expected: 03/04/2022 , Expires: 05/04/2022 Start: 02-17-2022 End: 04-19-2022 Fasting glucose [Mass/volume] in Serum or Plasma [facility] Work Phone: Comment on above: Expected: 02/17/2022 , Expires: 04/19/2022 Start: 02-06-2022 End: 04-08-2022 Fasting glucose [Mass/volume] in Serum or Plasma GLUCOSE FASTING BLD Lab Routine 28 weeks gestation of Supervision of high risk in third trimester Expected: 02/06/2022, Expires: 04/08/2022 [facility] Work Phone: Comment on above: Expected: 02/06/2022 , Expires: 04/08/2022 Start: 02-06-2022 End: 04-08-2022 FERRITIN BLD FERRITIN BLD Lab Routine Microcytic anemia Expected: 02/06/2022, Expires: 04/08/2022 [facility] Work Phone: Comment on above: Expected: 02/06/2022 , Expires: 04/08/2022 Start: 02-06-2022 End: 04-08-2022 Hemoglobin A1c/Hemoglobin.total in Blood HGB A1C Lab Routine 28 weeks gestation of Supervision of high risk in third trimester Expected: 02/06/2022, Expires: 04/08/2022 [facility] Work Phone: Comment on above: Expected: 02/06/2022 , Expires: 04/08/2022 Start: 02-06-2022 End: 04-08-2022 IRON + TIBC IRON + TIBC Lab Routine Microcytic anemia Expected: 02/06/2022, Expires: 04/08/2022 [facility] Work Phone: Comment on above: Expected: 02/06/2022 , Expires: 04/08/2022 Start: 01-15-2022 End: 03-17-2022 Thyrotropin [Units/volume] in Serum or Plasma TSH BLD Lab Routine Hypothyroidism, unspecified type 25 weeks gestation of Expected: 01/15/2022, Expires: 03/17/2022 [facility] Work Phone: Comment on above: Expected: 01/15/2022 , Expires: 03/17/2022 Start: 01-09-2022 End: 03-11-2022 CBC panel - Blood by Automated count CBC Lab Routine 24 weeks gestation of Supervision of high risk in second trimester Expected: 01/09/2022, Expires: 03/11/2022 [facility] Work Phone: Comment on above: Expected: 01/09/2022 , Expires: 03/11/2022 Start: 01-09-2022 End: 03-11-2022 GEST GLUC SCREEN, 1-HR, 50 GM, NON-FASTING GEST GLUC SCREEN, 1-HR, 50 GM, NON-FASTING Lab Routine 24 weeks gestation of Supervision of high risk in second trimester Expected: 01/09/2022, Expires: 03/11/2022 [facility] Work Phone: Comment on above: Expected: 01/09/2022 , Expires: 03/11/2022 Start: 01-09-2022 End: 03-11-2022 SYPHILIS TOTAL W/REFLEX SYPHILIS TOTAL W/REFLEX Lab Routine 24 weeks gestation of Supervision of high risk in second trimester Expected: 01/09/2022, Expires: 03/11/2022 [facility] Work Phone: Comment on above: Expected: 01/09/2022 , Expires: 03/11/2022 Start: 10-05-2021 DEPRESSION ASSESSMENT DEPRESSION ASS ESSMENT [facility] Start: 12-19-2015 HPV Vaccine (1 - 3-d ose SCDM series) HPV Vaccine (1 - 3-dose SCDM series) [facility] Start: 2006 Depression Screening Depression Scre ening [facility] Start: 1993 COVID-19 VACCINE (#1) COVID-19 VACCI NE (#1) [facility] Start: 1993 COVID-19 VACCINE (1) COVID-19 VACCIN E (1) [facility] Start: 06-20-1989 COVID-19 VACCINE (#1) COVID-19 VACCI NE (#1) [facility] Chlamydia trachomatis+Neisseria gonorrhoeae DNA [Presence] in Unspecified specimen by MAE with probe detection GC/CHLAMYDIA DNA DET Lab Routine Vaginal irritation 06/16/2022 3:06 PM EDT [facility] Work Phone: ECG COMPLETE [facility] Work Phone: Comment on above: Ordered: 05/31/2024 End: 05-10-2025 Echocardiography ECHO Cardiology Routine SANDOVAL (dyspnea on exertion) 1 Occurrences starting 05/10/2024 until 05/10/2025 [facility] Comment on above: 1 Occurrences starti ng 05/10/2024 until 05/10/2025 End: 05-13-2025 Echocardiography ECHO Cardiology Routine SANDOVAL (dyspnea on exertion) 1 Occurrences starting 05/13/2024 until 05/13/2025 [facility] Work Phone: Comment on above: 1 Occurrences starti ng 05/13/2024 until 05/13/2025 Excision 1st &/cervi edel rib EXCISION RIB FIRST AND/OR CERVICAL Thoracic outlet syndrome KRISTEN CAMP CT & VAS H&P for surgery H&P FOR SURGERY Procedures Routine Thoracic outlet syndrome Preop examination Ordered: 12/05/2024 [facility] Comment on above: Ordered: 12/05/2024 Microscopic observat ion [Identifier] in Vaginal fluid by Gram stain BACT/LISANDRA VAG GRAM STAIN Microbiology Routine Vaginal irritation 06/16/2022 3:06 PM EDT [facility] Work Phone: MISC SEND OUT TST 2 MISC SEND OU T TST 2 Lab Routine Adverse reaction to food, subsequent encounter 01/25/2024 2:08 PM EDT [facility] OBSTETRIC ULTRASOUND WHI OBSTETR IC ULTRASOUND WHI Anc Imaging Routine 28 weeks gestation of Encounter for supervision of other normal in third trimester 1 Occurrences starting 02/05/2022 [facility] Work Phone: Comment on above: 1 Occurrences starti ng 02/05/2022 PAP TEST PAP TEST Lab Karla hamilton Encounter for gynecological examination (general) (routine) without abnormal findings Screening for cervical cancer Encounter for screening for human papillomavirus (HPV) 12/01/2024 2:38 PM EST [facility] Work Phone: Patient Education [facility] Work Phone: Patient referral [facility] Work Phone: REFER TO FORMAL ANESTHESIA REFER TO FORMAL ANESTHESIA Procedures Routine Thoracic outlet syndrome Preop examination Ordered: 12/05/2024 [facility] Comment on above: Ordered: 12/05/2024 ROUTINE, GR OUP B STREP PCR ROUTINE, GROUP B STREP PCR Microbiology Routine Supervision of high risk in third trimester 35 weeks gestation of 03/27/2022 3:02 PM EDT [facility] Work Phone: Slctv cath plmt everette sys 2nd order/> slctv branc VENOGRAM EXTREMITY UPPER TOS (thoracic outlet syndrome) MM OR End: 10-17-2025 US Lower extremity vein US LEG VEIN DVT UNL VAS LAB Vascular Lab Routine Thoracic outlet syndrome 1 Occurrences starting 10/17/2024 until 10/17/2025 [facility] Work Phone: Comment on above: 1 Occurrences starti ng 10/17/2024 until 10/17/2025 End: 10-14-2025 US Upper extremity veins US ARM VEIN DVT UNL VAS LAB Vascular Lab Today Chronic deep vein thrombosis (DVT) of other vein of upper extremity, unspecified laterality (HCC) 1 Occurrences starting 10/14/2024 until 10/14/2025 [facility] Work Phone: Comment on above: 1 Occurrences starti ng 10/14/2024 until 10/14/2025 End: 06-12-2025 XR Chest PA and Lateral XR CHEST 2V FRONTAL/LAT Radiology Routine SANDOVAL (dyspnea on exertion) 1 Occurrences starting 05/13/2024 until 06/12/2025 [facility] Comment on above: 1 Occurrences starti ng 05/13/2024 until 06/12/2025 End: 03-15-2026 XR Chest PA and Lateral XR CHEST 2V FRONTAL/LAT Radiology STAT TOS (thoracic outlet syndrome) 1 Occurrences starting 02/13/2025 until 03/15/2026 [facility] Work Phone: Comment on above: 1 Occurrences starti ng 02/13/2025 until 03/15/[address] [facility] Immunizations Immunization Date Immunization Notes Care Provider Tong schmitt 06-30-2016 tetanus toxoid, redu divya diphtheria toxoid, and acellular pertussis vaccine, adsorbed [facility] Work Phone: 02-18-2012 tetanus and diphther ia toxoids, adsorbed, preservative free, for adult use (2 Lf of tetanus toxoid and 2 Lf of diphtheria toxoid) [facility] Work Phone: 05-16-2005 Meningococcal, MCV4, unspecified conjugate formulation(groups A, C, Y and W-135) [facility] Work Phone: 05-15-2004 tetanus and diphther ia toxoids, adsorbed, preservative free, for adult use (2 Lf of tetanus toxoid and 2 Lf of diphtheria toxoid) [facility] Work Phone: 07-07-2000 hepatitis B vaccine, pediatric or pediatric/adolescent dosage [facility] Work Phone: 11-14-1999 hepatitis B vaccine, pediatric or pediatric/adolescent dosage [facility] Work Phone: 04-29-1999 hepatitis B vaccine, pediatric or pediatric/adolescent dosage [facility] Work Phone: 04-29-1999 measles, mumps and rubella virus vaccine [facility] Work Phone: 05-25-1998 varicella virus vaccine [facility] Work Phone: 05-02-1994 diphtheria, tetanus toxoids and acellular pertussis vaccine [facility] Work Phone: 05-02-1994 trivalent poliovirus vaccine, live, oral [facility] Work Phone: 06-22-1990 diphtheria, tetanus toxoids and pertussis vaccine [facility] Work Phone: 06-22-1990 haemophilus influenz ae type b vaccine, HbOC conjugate [facility] Work Phone: 06-22-1990 trivalent poliovirus vaccine, live, oral [facility] Work Phone: 03-29-1990 measles, mumps and rubella virus vaccine [facility] Work Phone: 06-29-1989 diphtheria, tetanus toxoids and pertussis vaccine [facility] Work Phone: 04-28-1989 diphtheria, tetanus toxoids and pertussis vaccine [facility] Work Phone: 04-28-1989 trivalent poliovirus vaccine, live, oral [facility] Work Phone: 02-26-1989 diphtheria, tetanus toxoids and pertussis vaccine Radha CASILLAS [facility] Work Phone: 02-26-1989 trivalent poliovirus vaccine, live, oral Radhablessing CASILLAS [facility] Work Phone: Payers Date Payer Category Payer Unknown [employer] [id number] Self-pay [employer] [id number] Social History Date Type Detail Facility Start: 01-02-2012 End: 05-29-2022 Tobacco smoking status NHIS Never smoked tobacco [facility] Start: 12-11-2021 End: 02-28-2025 Alcohol intake Ex-drinker (finding) [facility] Start: 11-08-2020 History SDOH Alcohol Frequency 2 [facility] Start: 11-08-2020 History SDOH Alcohol Std Drinks 1 [facility] Start: 11-08-2020 History SDOH Social Connections Phone 4 [facility] Start: 11-08-2020 History SDOH Social Connections Get Together 3 [facility] Start: 11-08-2020 History SDOH Social Connections Living 98 [facility] Start: 11-08-2020 History SDOH Financial 5 [facility] Start: 11-08-2020 Education 21 [facility] Start: 08-02-2021 [facility] Start: 1990 Sex Assigned At Not on file [facility] Start: 11-11-2021 End: 06-16-2022 Exposure to SARS-CoV-2 (event) Not sure [facility] Start: 05-13-2019 Tobacco smoking status NHIS Unknown if ever smoked [facility] Work Phone: Start: 05-10-2019 None [facility] Work Phone: Start: 05-10-2019 Spouse/ Significant Other [facility] Work Phone: Start: 1990 Sex Assigned At Female [facility] Work Phone: Start: 01-02-2012 End: 05-29-2022 Tobacco use and exposure Smokeless tobacco non-user [facility] Start: 05-29-2022 Tobacco Comment No smoking in family [facility] Start: 11-08-2020 End: 04-15-2023 History of Social function [facility] Start: 11-08-2020 End: 04-15-2023 Social connection and isolation panel [facility] Do you belong to any clubs or organizations such as baptist groups, unions, fraternal or athletic groups, or school groups? Yes [facility] Are you now , , , , never or living with a partner? Refused [facility] How often to you hav e a drink containing alcohol? Monthly or less [facility] How many standard dr inks containing alcohol do you have on a typical day? 1 or 2 [facility] How often do you hav e 6 or more drinks on 1 occasion? Never [facility] Start: 09-05-2012 How hard is it for you to pay for the very basics like food, housing, medical care, and heating Not hard at all [facility] Do you feel stress - tense, restless, nervous, or anxious, or unable to sleep at night because your mind is troubled all the time - these days [OSQ] To some extent [facility] (I/We) worried linnea er (my/our) food would run out before (I/we) got money to buy more. Never true [facility] In the past 12 month s, was there a time when you were not able to pay the mortgage or rent on time? No [facility] Medical Equipment Procedure Code Equipment Code Equipment Original Text Equipment Identifier Dates Start: 02-05-2022 End: 06-04-2023 Comment on above: 1 Strip four times d aily. Use as instructed 1 Each four times da nba. Use as instructed Goals Date Patient Goal Desired Activity /State Personal health goal Personal health goal Functional Status Date Assessment Result Facility 02-10-2025 Are you deaf, or do you have serious difficulty hearing No 02/10/2025 11:15 AM EDT Saundra Hackett RN No [facility] 02-10-2025 Are you blind, or do you have serious difficulty seeing, even when wearing glasses No 02/10/2025 11:15 AM EDT Saundra Hackett, ARIEL No [facility] 02-10-2025 Do you have serious difficulty walking or climbing stairs No 02/10/2025 11:15 AM EDT Saundra Hackett, ARIEL No [facility] 02-10-2025 Do you have difficul ty dressing or bathing No 02/10/2025 11:15 AM EDT Saundra Hackett, ARIEL No [facility] 02-10-2025 Because of a physica l, mental, or emotional condition, do you have difficulty doing errands alone such as visiting a physician's office or shopping No 02/10/2025 11:15 AM EDT Saundra Hackett RN No [facility] 06-03-2024 Are you deaf, or do you have serious difficulty hearing No 06/03/2024 2:33 PM EDT Diane Gonzalez RN No [facility] 06-03-2024 Are you blind, or do you have serious difficulty seeing, even when wearing glasses No 06/03/2024 2:33 PM CHET Diane Gonzalez RN No [facility] 06-03-2024 Do you have serious difficulty walking or climbing stairs No 06/03/2024 2:33 PM CHET Diane Gonzalez RN No [facility] 06-03-2024 Do you have difficul ty dressing or bathing No 06/03/2024 2:33 PM EDT Diane Gonzalez RN No [facility] [facility] 06-03-2024 Because of a physica l, mental, or emotional condition, do you have difficulty doing errands alone such as visiting a physician's office or shopping No 06/03/2024 2:33 PM EDT Diane Gonzalez RN No [facility] Mental Status Date Assessment Result Facility 02-10-2025 Because of a physica l, mental, or emotional condition, do you have serious difficulty concentrating, remembering, or making decisions No 02/10/2025 11:15 AM EDT Saundra Hackett RN No [facility] 08-30-2024 Because of a physica l, mental, or emotional condition, do you have serious difficulty concentrating, remembering, or making decisions No 06/03/2024 2:33 PM EDT Diane Gonzalez RN No [facility] Clinical Notes 06-15-2017 to 07-30-2025 Telephone Encounter - Naila Soliz ENTERTAINMENT & MEDIA CORRESPONDENT - 05/22/2025 11:57 AM EDTTelephone Encounter - Naila Soliz LISW - 05/22/2025 11:57 AM Chang Hill PT - 05/22/2025 9:26 AM EDT Note Date & Type Note Facility 07-30-2025 Note HNO ID: [id number] Author: JOANNA FISHER RT(R) Service: Radiology Author Type: Technologist Type: Progress Notes Filed: 07/30/2025 18:31 Note Text: Radiology Service Progress Note DATE OF SERVICE: July 30, 2025 TIME: 6:31 PM PATIENT IDENTITY VERIFICATION COMPLETED USING TWO (2) STANDARD IDENTIFIERS: Name and Date of confirmed by patient verbally and Name and Date of confirmed by identification band. FALL SCREENING: Has the patient had 2 falls in the last year or 1 fall with injury or currently using an Ambulatory Assistive Device (Walker, Cane, Wheelchair, Crutches, etc.)? Emergency Room Patient: Screened in ED PATIENT GENDER DATA: Assigned female at . status: : No status: N/A PATIENT RELEVANT IMPLANT DATA REVIEWED: Yes PATIENT PRESENTS WITH AN IMPLANTABLE OR ATTACHED SENIOR AUTOMATION ENGINEER: No ALLERGIES: Reviewed and unchanged CONTRAST ALLERGY: N/A EXAM: CT -CONTRAST INDUCED NEPHROPATHY RISK FACTORS: Not applicable CREATININE: Creatinine Date Value Ref Range Status 07/30/2025 0.79 0.58 - 0.96 mg/dL Final 04/26/2025 0.82 0.58 - 0.96 mg/dL Final 02/10/2025 0.65 0.58 - 0.96 mg/dL Final Estimated Glomerular Filtration Rate Date Value Ref Range Status 07/30/2025 100 >=60 mL/min/1.73m? Final Comment: Estimated Glomerular Filtration Rate (eGFR) is calculated using the 2020 CKD-EPI creatinine equation. This equation utilizes serum creatinine, sex, and age as parameters. The creatinine assay has traceable calibration to isotope dilution-mass spectrometry. Refer to KDIGO guidelines for clinical interpretation. In patients with unstable renal function, e.g. those with acute kidney injury, the eGFR may not accurately reflect actual GFR. eGFR- Date Value Ref Range Status 11/13/2021 >60 Final P.O.C.T. RESULTS: POC done: Yes, See Lab Tab July 30, 2025 TREATMENT: N/A PERIPHERAL IV DATA: Inpatient - refer to [facility] documentation RADIOLOGY DEPARTMENT: CT; Exam(s) Completed: PE Study. Anesthesia: No SIGNATURE: Joanna iFsher, RT(R) PATIENT NAME: Matt Baum DATE: July 30, 2025 TIME: 6:[address] [facility] 07-30-2025 Note SARS-COV-2 (AGENT OF COVID-19) RNA: Not detected INFLUENZA A RNA: Not detected INFLUENZA B RNA: Not detected RESPIRATORY SYNCYTIAL VIRUS (RSV) RNA: Not detected [facility] Comment on above: Performed By: #### P [facility], [id number] #### [facility] CLIA [id number] [address] 07-05-2025 Note HNO ID: [id number] Author: NATA VALLE MD Service: ? Author Type: Physician Type: Progress Notes Filed: 07/07/2025 11:37 Note Text: Heart, Vascular AND Thoracic [place] Department of Cardiovascular Medicine TELEPHONE VISIT (audio only) PROGRESS NOTE This is a telephone encounter initiated for an established patient. The patient, parent or guardian is not originating from a related Evaluation AND Management service provided within the previous 7 days nor leading to an Evaluation AND Management service or procedure within the next 24 hours or soonest available appointment. I have communicated my name and active licensure. The patient's identity and physical location were verified at the time of this visit. Either the patient or their legal shared services representative has been informed of the risks and benefits of -- and alternatives to -- treatment through a remote evaluation and consents to proceed with the evaluation remotely. Matt Baum has consented to this telephone encounter. Persons Present: patient Chief complaint: VTE Interval history: Last seen 04/05/25. 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 Interested in doing PT again. Tolerating apixaban, no bleeding. History of present illness 10/17/23: Ms. Baum is a 33yo F hx hypothyroidism here to establish care for VTE. 05/2019 developed PE, no DVT. No transient risk factors. Was started on warfarin and then switched to apixaban. 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 APS panel negative. Was switched to enoxaparin during last [id number] and discontinued this 01/2024 due to concern that it was exacerbating a pereira pepper allergy. 05/2024 was admitted for new spontaneous L IJ, subclavian and axillary DVT, as well as reported L proximal DVT for which she was resumed enoxaparin. Several ED visits since then including 06/2024 for thigh hematoma after which she was switch to apixaban. Duplex negative for DVT. 08/04/24 presented to ED for new forearm pain where duplex was reportedly negative and she was continued on apixaban. 09/14/24 went back to ED after hitting her arm on a door knob. Duplex reported acute axillary DVT. Was switched back to enoxaparin. Presented to ED 09/29/24 due to to possible rash on enoxaparin. Was continued on enoxaparin. Most recently admitted 10/12-10/14/24 due to popping sensation in LUE. Duplex with chronic post thrombotic change. She was continued on enoxaparin. APS panel negative. Reports 100% compliance with all apixaban and enoxaparin doses in the past. Generally feeling well though still endorsing persistent burning pain at L upper chest/shoulder and upper arm. Reports a low level of baseline soreness and heaviness to the L arm. Notes numbness/tingling down the arm whenever she lays on it. Does not work out regularly. Played volleyball and basketball as a teenager. 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 No weight lifting. No family history of VTE. Never smoker. No drug use. , 5 children. 6 pregnancies including an 8 week miscarriage. PAST MEDICAL HISTORY Diagnosis Date Acquired hypothyroidism 10/21/2017 Anemia during in first trimester (HCC) 10/16/2021 Jovel's cyst, left 05/10/2019 Biliary dyskinesia 12/08/2019 Factor II deficiency (HCC) Family history of defect 08/26/2021 08/26/2021. Patient son born with a cyst on the brain. It was surgically removed when he was 6 years old. 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 PE (pulmonary thromboembolism) (HCC) 05/10/2019 05/10/2019 Situational stress 01/31/2020 Thoracic outlet syndrome 10/25/2024 Vocal cord dysfunction Paradoxical VOCAL CORD DYSFUNCTION PAST SURGICAL HISTORY Procedure Laterality Date APPENDECTOMY TONSILLECTOMY AND ADENOIDECTOMY FAMILY HISTORY Problem Relation Age of Onset Psychiatry Mother BIPOLAR Thyroid Mother Stroke Father Alcohol abuse Father No Known Problems Sister No Known Problems Sister No Known Problems Sister No Known Problems Brother Arthritis Maternal Grandmother Heart Maternal Grandmother Osteoporosis Maternal Grandmother Stroke Maternal Grandmother other (Hypotension) Maternal Grandmother Heart Maternal Grandfather Hypertension Maternal Grandfather Alcohol/Drug Maternal Grandfather Psychiatry Maternal Grandfather BIPOLAR No Known Problems Paternal Grandmother No Known Problems Paternal Grandfather No Known Problems Daughter No Known Problems Daughter other (cyst on brain) Son No Known Problems Son No Ocular Disease No Family History Malig Hyperthermia No Family History (more content not included)... [facility] 05-22-2025 Telephone encounter Note SOCIAL WORK FOLLOW UP NOTE: Date of service: May 22, 2025 Matt Baum is being seen for a follow up social work visit. Today's visit includes: patient TOPICS ADDRESSED: Pt stopped into APARNA's office this date following at PT OV. Pt inquiring about assistance completing a needed [employer] patient assistance application. APARNA printed application, assisted pt in completing and faxed to [employer] this date. APARNA sent a secure chat to pt's provider and nurse informing them that this has been completed but the physician portion and prescription will need sent to [employer]. No other needs identified at this time. Completed patient forms sent to internal scanning. PLAN: Assist with financial support applications F/U APPOINTMENT: PRN Assigned APARNA listed in Care Team tab: No SHINE MonteroS Director Of Employer Services [facility] 05-22-2025 Miscellaneous Notes SOCIAL WORK FOLLOW UP NOTE: Date of service: May 22, 2025 Matt Baum is being seen for a follow up social work visit. Today's visit includes: patient TOPICS ADDRESSED: Pt stopped into SW's office this date following at PT OV. Pt inquiring about assistance completing a needed [employer] patient assistance application. [employer] printed application, assisted pt in completing and faxed to [employer] this date. APARNA sent a secure chat to pt's provider and nurse informing them that this has been completed but the physician portion and prescription will need sent to [employer]. No other needs identified at this time. Completed patient forms sent to internal scanning. PLAN: Assist with financial support applications F/U APPOINTMENT: PRN Assigned APARNA listed in Care Team tab: No RON Montero Director Of Employer Services documented in this encounter [facility] 05-22-2025 History of Present illness Narrative Images from the original note were not included. Episode Visit Count: 11 Therapist That Will Accept/Oversee The Plan Of Care: Chang Diggs PT Start of Care Date: 02/14/25 Onset Date: 10/05/24 Plan of Care Certification Date: 04/24/25 Next Certification Due Date: 05/29/25 Patient Identified by Name and Date of : Yes REHABILITATION AND SPORTS THERAPY PHYSICAL THERAPY DISCONTINUANCE OF CARE PLAN OF CARE UPDATE: Assessment: Matt Baum is discontinued from Physical Therapy services due to Patient/Clinician mutual decision to discontinue current plan of care.. Patient was seen for 11 visits from Start of Care Date: 02/14/25 to 05/22/2025 and treatment included: Therapeutic exercise and Manual therapy. Goals updated 04/24/2025 Goals for Episode of Care: established 02/14/25 Independent in a Home Exercise Program. - Met Patient will decrease pain rating by 2 points to meet minimal clinical important difference for numeric pain rating scale. - Progressing overall Restore pain free cervical ROM to WNL to allow for ease of driving and scanning the environment. - Met Drive with no aggravation of pain/symptoms. - Not assessed Pt will demo LUE strength of 5/5 for ease of lifting up her children - Progressing Pt will demo L shoulder elevation to WNL for ease of reaching up into high cabinets and ease of getting dressed. - MET Patient Goals: Return to PLOF SUBJECTIVE: Doing much better. She is sore from doing a lot of work lately. Patient Goals: Return to PLOF Functional Limitations: lifting, reaching behind back, reaching overhead, cleaning, dressing Prior Level of Function: Independent without limitations Intake Information: Prescription present Pain: Pain Pain Location: Back PROMIS Scales 03/27/2025 02/14/2025 Higher is Better Phys Func - T Score 48 (within normal limits) 30 (moderate dysfunction) Phys Func - Percentile 42 2 Self-Eff Symptom - T Score 46 (Average) 40 (Average) Self-Eff Symptom - Percentile 34 16 Proxy-reported T-Score and Percentile Interpretation T-scores: mean of general population = 50. 5 points is clinically meaningfully difference Percentiles provide an indication of how the patient's score ranks in relation to the general population. Higher percentile rankings indicate better function/quality of life. 50th percentile is the average of the general population and indicates half of respondents had a worse score. OBJECTIVE MEASURES WITH LEVEL OF FUNCTION: UE AROM R UE AROM: WNL L UE AROM: WNL UE and Cervical Strength Strength Tested: Shoulder All R UE Strength: Grossly 5/5 L UE Strength: Grossly 5/5 TREATMENT: Therapeutic Exercise: 1: All objective measures taken 2: Brachioradialis stretch seated 2 x 30 sec 3: *HEP discussed Skilled Intervention: Patient was educated in proper exercise technique and purpose for exercises. Provided written instruction for home exercise program to facilitate proper performance and compliance. Correct performance of therapeutic exercises was facilitated with verbal cuing. Billing Therapeutic Exercise Treatment Minutes: 24 Skilled Treatment Time Minutes (timed and untimed codes): 24 Total Session Time (minutes): 24 Session Start Time : 925 Session Stop Time : 949 Chang Diggs PT documented in this encounter [facility] 05-22-2025 Note [facility] 05-19-2025 History of Present illness Narrative Nicole voiced that she became nauseated after her recent iron and felt poorly the rest of the day. Despite pushing iron with saline over 10 minutes Matt became mildly nauseated. Made [employer] DIRECTOR OF PUBLICATIONS aware via secure chat. IV Zofran ordered. documented in this encounter [facility] 05-19-2025 Note [facility] 05-16-2025 History of Present illness Narrative Images from the original note were not included. 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 Back to 2018 with escalation in May. 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 No significant arm edema or chest wall collaterals. Positive TTP over supraclavicular space and pectoralis minor space. Positive FAST. On 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. Reason for presentation today: 4-month postoperative visit Last clinic visit summary: Seen 3 months ago for her 1 month visit and was doing well overall with improving range of motion. Subclavian vein was widely patent on duplex. Dr. Valle preferred to hold off on 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 for 2 more weeks. Plan was to follow-up in 3 months with a repeat duplex and chest x-ray. She was to increase her activity with physical therapy. Today: Anticoagulation tolerance - Started taking Eliquis at the end of March being managed by Dr. Valle Interval issues - Since starting the medication she notes some numbness that starts in her Range of motion and flexibility - Increasing with PT, feels the range of motion is a lot better Resistance training tolerance - Getting stronger but notes some weakness compared to her other side AMBIENCE AI: The patient reports improvement in movement and strength, though she notes residual weakness in the shoulder. She is currently undergoing PT, with a reevaluation scheduled for the . Recent PT sessions have focused on back strengthening over the past 2 weeks. She has been using resistance bands for exercises. She reports persistent numbness in the forearm, which intensifies when holding her arm up, such as when reading in bed. The numbness appears to originate from the elbow. She denies any resolution of this symptom since its onset. She is currently on Eliquis and has transitioned off Lovenox. She mentions a previous incident in May involving a clot in her leg, which was associated with arm pain. She denies any current issues with the opposite side. Vascular health status: Smoking status: never Anti-platelet/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 (if A/C - indication?): stopped taking lovenox, will continue AC in 2 weeks following appointment with vascular medicine Statin or [id number]: N/A Past Vascular Surgeries: - 02/01/25 Quatromoni - L paraclavicular FRR with venolysis - 11/2024 ([facility]) - LUE venogram showing significant compression of her subclavian vein with arm ABducted Other Non Vascular PMH/PSH: N/A Problem List & PMH last updated date: 05/16/2025 Most recent cardiac testing (TTE, Stress, LHC): - 06/03/24 limited echo: Impression CONCLUSIONS: - Exam indication: Arrhythmia - The left ventricle is normal in size. Left ventricular systolic function is normal. EF = 58 5% (2D 4-ch.) Normal left ventricular diastolic function. - The right ventricle is normal in size. Right ventricular systolic function is normal. - Exam was compared with the prior echocardiographic exam performed on 12/17/2006. No images or report available for comparison. Care Team: Physician managing CV risk factors - Nata Valle Other - Ravinder Sands (PCP) PAST MEDICAL HISTORY: PAST MEDICAL HISTORY[1] MEDICATIONS: apixaban (ELIQUIS) 5 mg tab(s)^Take 1 tablet by mouth two times a day.^Disp: ^Rfl: levothyroxine (LEVOXYL) 100 mcg tablet^Take 1 tablet by mouth once daily.^Disp: 30 tablet^Rfl: 5 acetaminophen (TYLENOL) 500 mg tablet^Take 2 tablets by mouth every 6 hours.^Disp: 90 tablet^Rfl: 0 potassium chloride 20 mEq TbER^Take 1 tablet by mouth once daily.^Disp: 90 tablet^Rfl: 3 cyanocobalamin, vitamin B-12, 1,000 mcg lozg^Dissolve 1 lozenge under the tongue once daily.^Disp: 90 lozenge^Rfl: 2 PHYSICAL EXAM: VITALS: BP 118/71 Pulse 71 SpO2 100% LMP 04/22/2025 Physical Exam Constitutional: Appearance: She is normal weight. Cardiovascular: Rate and Rhythm: Normal rate. Pulses: Normal pulses. Pulmonary: Effort: Pulmonary effort is normal. Musculoskeletal: General: Normal range of motion. Cervical back: Normal range of motion. Comments: Muscle strength is decreased on the left compared to the right Skin: General: Skin is warm and dry. Comments: Incision site is healed without SOI Neurological: Mental Status: She is alert and oriented to person, place, and time. Comments: Paresthesias that start in the left forearm and sometimes radiates to the hand Psychiatric: Mood and Affect: Mood normal. Behavior: Behavior normal. DIAGNOSTIC TESTS REVIEWED FOR TODAY'S VISIT: CXR today: Resolved left pleural cap IMPRESSION: No acute radiographic abnormality. Prior CXR: Improvement of left apical pleural cap Venous duplex: IMPRESSION Compared to prior study of 02/28/2025, There is no evidence of significant change, comparison is made to a study without maneuvers. RIGHT SIDE - DEEP VEINS Spontaneous and respirophasic flow noted in the subclavian vein. LEFT SIDE - DEEP VEINS Negative for acute deep vein thrombosis. There is no evidence of subclavian/axillary vein compression with upper extremity maneuvers. IMPRESSION: 34 year old female s/p Left paraclavicular first rib resection with venolysis of the axillosubclavian vein, she is 4 months post op. CXR and US was completed and reviewed negative for Hematoma, acute DVT or compression of the vessels with upper extremity maneuvers. She is improving significantly with a flexibility and range of motion and is almost back to baseline. She has forearm symptoms that I do not think are related to her TOS and may be related to distal nerve compression. Vascular screening otherwise up-to-date PLAN and RECOMMENDATIONS: - RTC as needed. Continue PT at the direction of her physical therapist as long as she has benefit from this. I feel expect that she will return to baseline function. I have no additional restrictions for her at this point. - Continue 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 at the direction of Dr. Nata Valle - Recommend continuing medical optimization of cardiovascular risk factors at the direction of medical team listed above Edmond Pierre, MS-IV Podiatry [facility] [place] STAFF PHYSICIAN NOTE OF PERSONAL INVOLVEMENT IN CARE Vascular STAFF - Praful Guajardo MD I have reviewed the documentation above obtained and documented by the Medical student and I have personally performed a face to face assessment of the patient and have personally participated in the dixon components of the visit which includes medical decision making. I have discussed the case and management of the patient's care with the patient and Dr. Valle. The following comments revise or confirm relevant dixon components. Impression and plan as above with the following modifications: # TOS (thoracic outlet syndrome) (G54.0) Recent ultrasound and X-ray show no residual hematoma and normal left subclavian vein without compression with maneuvers. Patient reports numbness in the forearm, likely unrelated to TOS and possibly due to nerve compression at the elbow. - No restrictions on physical activity; patient can resume normal activities and resistance training. - Continue physical therapy; next evaluation on the . - Monitor forearm numbness; consider referral to peripheral nerve surgeon if symptoms persist. - Follow-up as needed; patient advised to contact if any issues arise. # retirement (current) use of anticoagulants (Z79.01) Patient is currently on Eliquis, previously on Lovenox. Anticoagulation management is being overseen by Nata Valle. - Continue Eliquis indefinitely as per Nata Valle's management. Thank you for the opportunity to contribute to Mrs. Baum's care. Please do not hesitate to call with any questions or concerns. This note may have been partially generated using the [employer] voice recognition system as well as artificial intelligence technology. While every effort was made to correct voice recognition errors, kindly be aware that some errors may occasionally occur. The patient consented to the use of ambient AI software for draft documentation of the visit consistent with [facility] s Notice of Privacy Practices. STAFF PHYSICIAN: Praful Guajardo MD DATE OF SERVICE: May 19, 2025 Medical Decision Making: Problems: Low: Stable chronic illness Data: Unique source(s) for external note(s) reviewed: 1 Unique test result(s) reviewed: 3+ Discussed management or test w/ external physician/QHCP/source Risk: Moderate: Drug management Medical Decision Making Level: 4 - Moderate [1] PAST MEDICAL HISTORY Diagnosis Date Acquired hypothyroidism 10/21/2017 Anemia during in first trimester (HCC) 10/16/2021 Jovel's cyst, left 05/10/2019 Biliary dyskinesia 12/08/2019 Factor II deficiency (HCC) Family history of defect 08/26/2021 08/26/2021. Patient son born with a cyst on the brain. It was surgically removed when he was 6 years old. 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 FALL SCREENING: Has the patient had 2 falls in the last year or 1 fall with injury or currently using an Ambulatory Assistive Device (Walker, Cane, Wheelchair, Crutches, etc.)? No PATIENT GENDER DATA: Assigned female at . status: : No status: NO. PATIENT RELEVANT IMPLANT DATA REVIEWED: Not Applicable PATIENT PRESENTS WITH AN IMPLANTABLE OR ATTACHED SENIOR AUTOMATION ENGINEER: No RADIOLOGY DEPARTMENT: General X-ray: Exam(s) Completed: Chest X-Ray PERIPHERAL IV DATA: Not applicable SIGNED BY: RT Aruna(R) May 16, 2025 10:32 AM documented in this encounter [facility] 05-16-2025 Note [facility] 05-08-2025 Note [facility] 08-04-2025 History of Present illness Narrative Episode Visit Count: 10 Therapist That Will Accept/Oversee The Plan Of Care: Chang Diggs PT Start of Care Date: 02/14/25 Onset Date: 10/05/24 Plan of Care Certification Date: 04/24/25 Next Certification Due Date: 05/29/25 Patient Identified by Name and Date of : Yes REHABILITATION AND SPORTS THERAPY PHYSICAL THERAPY TREATMENT NOTE ASSESSMENT: Matt Baum tolerated the session with expected muscle soreness. She demonstrated good tolerance with some cardiovascular fatigue with suit case carry exercise. The patient will continue to benefit from ongoing skilled physical therapy to progress toward set goals. PLAN FOR NEXT VISIT: Possible DC SUBJECTIVE: She has been doing the HEP when she can. At least 2 times a week. She is also working. Pain: Pain Pain Level: 0 Pain Location: Back OBJECTIVE MEASURES WITH LEVEL OF FUNCTION: TREATMENT: Therapeutic Exercise: 1: Wall push-ups 3 x 15 2: Shoulder press 3# 2 x 12 3: B shoulder ext lvl 5 band 2 x 12 4: Suit case carry 8# x 250 feet x 2 sets 5: Bicep curl 5# 2 x 12 6: UBE 2 min F and 2 min B (subjective taken and 1:1 time spent) Skilled Intervention: Patient was educated in proper exercise technique and purpose for exercises. Correct performance of therapeutic exercises was facilitated with verbal cuing. Billing Therapeutic Exercise Treatment Minutes: 46 Skilled Treatment Time Minutes (timed and untimed codes): 46 Total Session Time (minutes): 46 Session Start Time : 911 Session Stop Time : 957 Chang Diggs PT documented in this encounter [facility] 05-04-2025 Note [facility] 05-02-2025 Telephone encounter Note Scheduled with patient [facility] Work Phone: 05-02-2025 Miscellaneous Notes Scheduled with patient 1st attempt. Message left for patient to schedule appointment with Kait Stubbs. OV/LOW IRON* Labs reviewed with Kait Stubbs.Please schedule with Brianna. Audelia Garza LPN Patient is calling requesting to schedule an appointment with Dr Quarles for low Iron was not sure to arrange this as it appears last visit was for DVT. Please advise the patient. documented in this encounter [facility] 04-28-2025 Telephone encounter Note 1st attempt. Message left for patient to schedule appointment with Kait Stubbs. OV/LOW IRON* [facility] 04-27-2025 Telephone encounter Note Labs reviewed with Kait Stubbs.Please schedule with Kait. Audelia Garza LPN [facility] 04-27-2025 Telephone encounter Note Patient is calling requesting to schedule an appointment with Dr Quarles for low Iron was not sure to arrange this as it appears last visit was for DVT. Please advise the patient. [facility] 04-27-2025 Telephone encounter Note Pt called in stating she was in the ED yesterday due to sob and chest pains. Pt requesting to have the provider look over the notes to see how she should proceed Pt states she is still having issues. Pt is available on [phone] (home) [facility] 04-27-2025 Miscellaneous Notes Pt called in stating she was in the ED yesterday due to sob and chest pains. Pt requesting to have the provider look over the notes to see how she should proceed Pt states she is still having issues. Pt is available on [phone] (home) documented in this encounter [facility] 04-26-2025 Note HNO ID: [id number] Author: BANDAR FELICIANO RT(Lisa) Service: Radiology Author Type: Technologist Type: Progress Notes Filed: 04/26/2025 20:37 Note Text: Radiology Service Progress Note PATIENT NAME: Matt Baum DATE OF SERVICE: April 26, 2025 TIME: 8:36 PM PATIENT IDENTITY VERIFICATION COMPLETED USING TWO (2) IDENTIFIERS: Name and Date of confirmed by patient verbally and Name and Date of confirmed by identification band. FALL SCREENING: Has the patient had 2 falls in the last year or 1 fall with injury or currently using an Ambulatory Assistive Device (Walker, Cane, Wheelchair, Crutches, etc.)? Emergency Room Patient: Screened in ED PATIENT GENDER DATA: Assigned female at . status: : No status: NO. PATIENT RELEVANT IMPLANT DATA REVIEWED: Not Applicable PATIENT PRESENTS WITH AN IMPLANTABLE OR ATTACHED SENIOR AUTOMATION ENGINEER: No RADIOLOGY DEPARTMENT: General X-ray: Exam(s) Completed: Chest X-Ray PERIPHERAL IV DATA: Not applicable SIGNED BY: RT Zana(R) April 26, 2025 8:[address] [facility] 04-24-2025 Note [facility] 04-24-2025 History of Present illness Narrative Images from the original note were not included. Episode Visit Count: 9 Therapist That Will Accept/Oversee The Plan Of Care: Chang Diggs PT Start of Care Date: 02/14/25 Onset Date: 10/05/24 Plan of Care Certification Date: 04/24/25 Next Certification Due Date: 05/29/25 Patient Identified by Name and Date of : Yes REHABILITATION AND SPORTS THERAPY PHYSICAL THERAPY PROGRESS REPORT PLAN OF CARE UPDATE: Assessment: Matt Baum demonstrates difficulty with upper back weakness and soreness and improvements in overall neck ROM, neck muscle flexibility, and UE strength and ROM. The patient has progressed toward goals. Patient continues to present with impairments in ADL's, independence in exercise, overall function, and range of motion that interfere with lifting, reaching behind back, reaching overhead, cleaning, dressing . Current prognosis is Good due to: current objective clinical presentation . The patient will benefit from continued skilled therapy services to meet the updated goals for this plan of care as noted below. Goals updated 04/24/2025 Goals for Episode of Care: established 02/14/25 Independent in a Home Exercise Program. - Met Patient will decrease pain rating by 2 points to meet minimal clinical important difference for numeric pain rating scale. - Progressing overall Restore pain free cervical ROM to WNL to allow for ease of driving and scanning the environment. - Met Drive with no aggravation of pain/symptoms. - Not assessed Pt will demo LUE strength of 5/5 for ease of lifting up her children - Progressing Pt will demo L shoulder elevation to WNL for ease of reaching up into high cabinets and ease of getting dressed. - MET Patient Goals: Return to PLOF Time Frame for Goals and Treatment : 05/09/25 Patient Goals: Return to PLOF Planned Interventions, Frequency, and Duration: 1x every other week, 4 weeks Total Number of Visits Planned: 2 Patient to be seen for Therapeutic exercise (30336), Neuromuscular re-education (27990), Manual therapy (20462), Therapeutic activities (79814), Self-fdc management (64857), Gait Training (44937) PLAN FOR NEXT VISIT: Progress rhomboid/lower trap strengthening. weighted ball tosses. SUBJECTIVE: She got sore in her back from lifting heavier mats. She has some tingling and numbness in her L arm when trying to assist in recreational activities. Patient Goals: Return to PLOF Functional Limitations: lifting, reaching behind back, reaching overhead, cleaning, dressing Prior Level of Function: Independent without limitations Intake Information: Prescription present Pain: Pain Pain Location: Back Description: Sore PROMIS Scales 03/27/2025 02/14/2025 Higher is Better Phys Func - T Score 48 (within normal limits) 30 (moderate dysfunction) Phys Func - Percentile 42 2 Self-Eff Symptom - T Score 46 (Average) 40 (Average) Self-Eff Symptom - Percentile 34 16 Proxy-reported T-scores: mean of general population = 50. 5 points is clinically meaningfully difference Percentiles provide an indication of how the patient's score ranks in relation to the general population. Higher percentile rankings indicate better function/quality of life. 50th percentile is the average of the general population and indicates half of respondents had a worse score. OBJECTIVE MEASURES WITH LEVEL OF FUNCTION: Cervical Spine ROM Cervical ROM : (Neck ROM is WNL all directions) UE AROM R UE AROM: WNL L UE AROM: WNL UE and Cervical Strength Strength Tested: Shoulder All R UE Strength: Grossly 5/5 L UE Strength: Grossly 5/5 R Middle Trapezius: 3+/5 R Lower Trapezius: 3+/5 L Middle Trapezius: 3/5 L Lower Trapezius: 3/5 Gait Gait Observation: WNL TREATMENT: Therapeutic Exercise: 1: All objective measures taken 2: Prone T 1# 2 x 10 RUE then 2 x 10 LUE 3: Prone Y 1# 2 x 10 RUE then 2 x 10 LUE Skilled Intervention: Patient was educated in proper exercise technique and purpose for exercises. Correct performance of therapeutic exercises was facilitated with verbal cuing. Billing Therapeutic Exercise Treatment Minutes: 41 Skilled Treatment Time Minutes (timed and untimed codes): 41 Total Session Time (minutes): 41 Session Start Time : 831 Session Stop Time : 912 Chang Diggs PT documented in this encounter [facility] 04-17-2025 Note [facility] 04-17-2025 History of Present illness Narrative Episode Visit Count: 8 Therapist That Will Accept/Oversee The Plan Of Care: Chang Diggs PT Start of Care Date: 02/14/25 Onset Date: 10/05/24 Plan of Care Certification Date: 02/14/25 Next Certification Due Date: 05/09/25 Patient Identified by Name and Date of : Yes REHABILITATION AND SPORTS THERAPY PHYSICAL THERAPY TREATMENT NOTE ASSESSMENT: Matt Baum tolerated the session with no issues. She demonstrated some soreness with the exercises performed this session. The patient will continue to benefit from ongoing skilled physical therapy to progress toward set goals. PLAN FOR NEXT VISIT: ELIDA strengthening and PN SUBJECTIVE: Things are pretty sore. She was cleaning a gym on Thursday. Her neck is sore but not her arm. Pain: Pain Pain Level: 4 Pain Location: Neck - Left OBJECTIVE MEASURES WITH LEVEL OF FUNCTION: Tender along the L posterior scalene muscle TREATMENT: Therapeutic Exercise: 1: L cervical SB iso x 10 2: L shoulder press 3# 3 x 10 3: Seated L bicep curl 5# 3 x 10 4: Standing L F/B bodyblade 2 x 60 sec Skilled Intervention: Patient was educated in proper exercise technique and purpose for exercises. Manual Therapy: 1: STM along the L posterior scalene 2: STM over L SCM Skilled Intervention: Manual skills to improve joint mobility, ROM, and decrease pain. Utilized anatomy knowledge of the clinician, and assessment of patient's response to intervention. Billing Therapeutic Exercise Treatment Minutes: 19 Manual TherapyTreatment Minutes: 10 Skilled Treatment Time Minutes (timed and untimed codes): 29 Total Session Time (minutes): 29 Session Start Time : 838 Session Stop Time : 907 Chang Diggs PT documented in this encounter [facility] 04-11-2025 Telephone encounter Note Kiersten patient assistance [facility] 04-11-2025 Miscellaneous Notes Kiersten patient assistance documented in this encounter [facility] 04-05-2025 Note HNO ID: [id number] Author: NATA VALLE MD Service: ? Author Type: Physician Type: Progress Notes Filed: 04/05/2025 11:24 Note Text: Heart, Vascular AND Thoracic [place] Department of Cardiovascular Medicine VIRTUAL VIDEO VISIT ESTABLISHED OUTPATIENT VISIT SERVICE DATE: April 05, 2025 Patient: Matt Baum SERVICE TIME: 11:08 AM : 1990 This is a virtual video visit. It required patient-provider interaction for the medical decision making as documented below. Matt Baum has consented to this video encounter. I have communicated my name and active licensure. The patient's identity and physical location were verified at the time of this visit. Either the patient or their legal shared services representative has been informed of the risks and benefits of -- and alternatives to -- treatment through a remote evaluation and consents to proceed with the evaluation remotely. Chief complaint: VTE Interval history: Last seen 03/16/25. Feeling well. Several days ago worked in her yard including trimming overhead shrubbery with rebecca, and since then has developed some soreness around her shoulder and incision site. No new swelling. Shortness of breath has resolved. History of present illness 10/17/23: Ms. Baum is a 33yo F hx hypothyroidism here to establish care for VTE. 05/2019 developed PE, no DVT. No transient risk factors. Was started on warfarin and then switched to apixaban. 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 APS panel negative. Was switched to enoxaparin during last [id number] and discontinued this 01/2024 due to concern that it was exacerbating a pereira pepper allergy. 05/2024 was admitted for new spontaneous L IJ, subclavian and axillary DVT, as well as reported L proximal DVT for which she was resumed enoxaparin. Several ED visits since then including 06/2024 for thigh hematoma after which she was switch to apixaban. Duplex negative for DVT. 08/04/24 presented to ED for new forearm pain where duplex was reportedly negative and she was continued on apixaban. 09/14/24 went back to ED after hitting her arm on a door knob. Duplex reported acute axillary DVT. Was switched back to enoxaparin. Presented to ED 09/29/24 due to to possible rash on enoxaparin. Was continued on enoxaparin. Most recently admitted 10/12-10/14/24 due to popping sensation in LUE. Duplex with chronic post thrombotic change. She was continued on enoxaparin. APS panel negative. Reports 100% compliance with all apixaban and enoxaparin doses in the past. Generally feeling well though still endorsing persistent burning pain at L upper chest/shoulder and upper arm. Reports a low level of baseline soreness and heaviness to the L arm. Notes numbness/tingling down the arm whenever she lays on it. Does not work out regularly. Played volleyball and basketball as a teenager. 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 No weight lifting. No family history of VTE. Never smoker. No drug use. , 5 children. 6 pregnancies including an 8 week miscarriage. 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) Family history of defect 08/26/2021 08/26/2021. Patient son born with a cyst on the brain. It was surgically removed when he was 6 years old. 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 PE (pulmonary thromboembolism) (HCC) 05/10/2019 05/10/2019 Situational stress 01/31/2020 Thoracic outlet syndrome 10/25/2024 Vocal cord dysfunction Paradoxical VOCAL CORD DYSFUNCTION PAST SURGICAL HISTORY Procedure Laterality Date APPENDECTOMY TONSILLECTOMY AND ADENOIDECTOMY FAMILY HISTORY Problem Relation Age of Onset Psychiatry Mother BIPOLAR Thyroid Mother Stroke Father Alcohol abuse Father No Known Problems Sister No Known Problems Sister No Known Problems Sister No Known Problems Brother Arthritis Maternal Grandmother Heart Maternal Grandmother Osteoporosis Maternal Grandmother Stroke Maternal Grandmother other (Hypotension) Maternal Grandmother Heart Maternal Grandfather Hypertension Maternal Grandfather Alcohol/Drug Maternal Grandfather Psychiatry Maternal Grandfather BIPOLAR No Known Problems Paternal Grandmother No Known Problems Paternal Grandfather No Known Problems Daughter No Known Problems Daughter other (cyst on brain) Son No Known Problems Son No Ocular Disease No Family History Malig Hyperthermia No Family History Social History Tobacco Use Smoking status: Never Smokeless tobacco: Never Tobacco comment (more content not included)... [facility] 04-05-2025 History of Present illness Narrative Heart, Vascular & Thoracic [place] Department of Cardiovascular Medicine VIRTUAL VIDEO VISIT ESTABLISHED OUTPATIENT VISIT SERVICE DATE: April 05, 2025 Patient: Matt Baum SERVICE TIME: 11:08 AM : 1990 This is a virtual video visit. It required patient-provider interaction for the medical decision making as documented below. Matt Baum has consented to this video encounter. I have communicated my name and active licensure. The patient's identity and physical location were verified at the time of this visit. Either the patient or their legal shared services representative has been informed of the risks and benefits of -- and alternatives to -- treatment through a remote evaluation and consents to proceed with the evaluation remotely. Chief complaint: VTE Interval history: Last seen 03/16/25. Feeling well. Several days ago worked in her yard including trimming overhead shrubbery with rebecca, and since then has developed some soreness around her shoulder and incision site. No new swelling. Shortness of breath has resolved. History of present illness 10/17/23: Ms. Baum is a 33yo F hx hypothyroidism here to establish care for VTE. 05/2019 developed PE, no DVT. No transient risk factors. Was started on warfarin and then switched to apixaban. 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 APS panel negative. Was switched to enoxaparin during last [id number] and discontinued this 01/2024 due to concern that it was exacerbating a pereira pepper allergy. 05/2024 was admitted for new spontaneous L IJ, subclavian and axillary DVT, as well as reported L proximal DVT for which she was resumed enoxaparin. Several ED visits since then including 06/2024 for thigh hematoma after which she was switch to apixaban. Duplex negative for DVT. 08/04/24 presented to ED for new forearm pain where duplex was reportedly negative and she was continued on apixaban. 09/14/24 went back to ED after hitting her arm on a door knob. Duplex reported acute axillary DVT. Was switched back to enoxaparin. Presented to ED 09/29/24 due to to possible rash on enoxaparin. Was continued on enoxaparin. Most recently admitted 10/12-10/14/24 due to popping sensation in LUE. Duplex with chronic post thrombotic change. She was continued on enoxaparin. APS panel negative. Reports 100% compliance with all apixaban and enoxaparin doses in the past. Generally feeling well though still endorsing persistent burning pain at L upper chest/shoulder and upper arm. Reports a low level of baseline soreness and heaviness to the L arm. Notes numbness/tingling down the arm whenever she lays on it. Does not work out regularly. Played volleyball and basketball as a teenager. 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 No weight lifting. No family history of VTE. Never smoker. No drug use. , 5 children. 6 pregnancies including an 8 week miscarriage. PAST MEDICAL HISTORY Diagnosis Date Acquired hypothyroidism 10/21/2017 Anemia during in first trimester (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) Family history of defect 08/26/2021 08/26/2021. Patient son born with a cyst on the brain. It was surgically removed when he was 6 years old. 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 PAST SURGICAL HISTORY Procedure Laterality Date APPENDECTOMY TONSILLECTOMY & ADENOIDECTOMY <AGE 12 1994 FAMILY HISTORY Problem Relation Age of Onset Psychiatry Mother BIPOLAR Thyroid Mother Stroke Father Alcohol abuse Father No Known Problems Sister No Known Problems Sister No Known Problems Sister No Known Problems Brother Arthritis Maternal Grandmother Heart Maternal Grandmother Osteoporosis Maternal Grandmother Stroke Maternal Grandmother other (Hypotension) Maternal Grandmother Heart Maternal Grandfather Hypertension Maternal Grandfather Alcohol/Drug Maternal Grandfather Psychiatry Maternal Grandfather BIPOLAR No Known Problems Paternal Grandmother No Known Problems Paternal Grandfather No Known Problems Daughter No Known Problems Daughter other (cyst on brain) Son No Known Problems Son No Ocular Disease No Family History Malig Hyperthermia No Family History Social History Tobacco Use Smoking status: Never Smokeless tobacco: Never Tobacco comments: No smoking in family Vaping Use Vaping status: Never Used Substance Use Topics Alcohol use: Not Currently Drug use: No ALLERGIES Allergen Reactions Pereira Pepper Anaphylaxis, Other: See Comments Latex Anaphylaxis, Hives Amoxicillin Hives, Swelling Banana Swelling Latex Hives Verified by skin testing Nubain [Nalbuphine * Rash Avocado Itching Carrot Itching [place]* Other: See Comments Kiwi Itching Hydroxyzine Other: See Comments Extreme fatigue Omeprazole Other: See Comments nausea Sertraline Other: See Comments Bruising, stopped by hematology 12/3022 was interacting with blood thinners CURRENT MEDICATIONS levothyroxine (LEVOXYL) 100 mcg tablet Take 1 tablet by mouth once daily. enoxaparin (LOVENOX) 60 mg/0.6 mL syrg Inject 0.6 mL subcutaneously two times a day. Inject entire contents of one(1) syringe acetaminophen (TYLENOL) 500 mg tablet Take 2 tablets by mouth every 6 hours. potassium chloride 20 mEq TbER Take 1 tablet by mouth once daily. PHYSICAL EXAMINATION: VIDEO EXAM: (if completed, performed via video enabled technology) GENERAL: alert and appropriate, in no distress, well-hydrated, well nourished, and happy, smiling, interactive PATIENT ENTERED QUESTIONNAIRE SCORES 11/30/2024 PHQ-9 PHQ-2 Score 0 PHQ-9 Score 0 02/14/2025 01/22/2024 11/08/2020 PROMIS Global Health - (T-Scores - the mean of general population = 50. Five points is a clinically meaningful difference.) Physical T-Score 29.6 50.8 44.9 Mental T-Score 38.8 48.3 38.8 Labs: 02/28/25 Hgb 11.2 Plt 245 Imaging: CXR 02/28/25: Compared to 02/15/2025, interval improvement without resolution of a lentiform opacity at the left apex, likely secondary to a fluid collection which may be pleural or extrapleural in origin. Radiographic follow-up is suggested. Vascular studies: UE venous duplex 02/28/25: RIGHT SIDE - DEEP VEINS Negative for acute deep vein thrombosis. Normal color and pulsed Doppler signals noted; however, unable to compress the subclavian vein and axillary vein. LEFT SIDE - DEEP VEINS Negative for acute deep vein thrombosis. Normal color and pulsed Doppler signals noted; however, unable to compress the subclavian vein due to recent procedure. Nonvascular structure versus hematoma noted at the clavicle measuring approximately 2.3 x 2.3 cm. 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 Started on apixaban. 2020 switched to enoxaparin during 01/2024 - enoxaparin discontinued due to concern it was worsening her pereira pepper allergy 05/2024 - LIJ, subclavian, axillary DVT, and LLE DVT. Started on enoxaparin. 06/2024 - thigh hematoma. Switched to apixban. Duplex negative though images were of suboptimal quality. 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 01/2025 - L FRR c/b post-op L hemothorax while on IV UFH and acute anemia requiring 2U PRBC. Anticoagulation held. 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 New L shoulder soreness likely 2/2 overuse several days ago while gardening. Low suspicion for recurrent thrombosis as she has been compliant with 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. Advised to continue monitoring symptoms over the next 1-2 weeks and if they fail to improve, to let myself and Dr. Guajardo know. Ok to switch back to apixaban 5mg BID - lifelong therapy as previously discussed. She states she receives this through a program coordinated by her last delinquency prevention social worker - I will reach out for details. TOS surveillance per Dr. Guajardo. Return in 3 months. CC: VINNY Montero MD, FS, VI Section of Vascular Medicine, [facility] documented in this encounter [facility] 04-04-2025 Note HNO ID: [id number] Author: ANN DICKINSON PA-C Service: ? Author Type: Physician Log Chain Feeder Type: Progress Notes Filed: 04/06/2025 11:08 Note Text: Subjective Nicole Baum is a 34-year-old female with a history of hypothyroidism, presenting for follow-up and medication refill. Nicole reports significant hair loss since switching from 100 mcg to 88 mcg of levothyroxine, which she attributes to running out of the 100 mcg dose on Thursday and using the remaining 88 mcg dose until today's appointment. She notes that the hair loss has slowed but was initially substantial, describing it as half of what I have. She denies taking a multivitamin. Nicole also mentions a recent hospitalization lasting 10 days, during which she experienced extreme pain and a syncopal episode. She reports that an x-ray showed her lung was half full, and she was initially told the pain was due to heartburn and anxiety. She denies current chest pain or dyspnea, stating that any pain is not consistent and resolves on its own. She is currently taking Lovenox and expects to switch to Eliquis after a vascular medicine appointment tomorrow. She also takes potassium and Tylenol as needed. Bowel movements are regular without issues. Review of Systems Cardiovascular: (-) chest pain Respiratory: (-) shortness of breath Gastrointestinal: (-) change in bowel habits Skin: (+) hair loss PAST MEDICAL HISTORY Diagnosis Date Acquired hypothyroidism 10/21/2017 Anemia during in first trimester (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) Family history of defect 08/26/2021 08/26/2021. Patient son born with a cyst on the brain. It was surgically removed when he was 6 years old. 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 PAST SURGICAL HISTORY Procedure Laterality Date APPENDECTOMY TONSILLECTOMY AND ADENOIDECTOMY FAMILY HISTORY Problem Relation Age of Onset Psychiatry Mother BIPOLAR Thyroid Mother Stroke Father Alcohol abuse Father No Known Problems Sister No Known Problems Sister No Known Problems Sister No Known Problems Brother Arthritis Maternal Grandmother Heart Maternal Grandmother Osteoporosis Maternal Grandmother Stroke Maternal Grandmother other (Hypotension) Maternal Grandmother Heart Maternal Grandfather Hypertension Maternal Grandfather Alcohol/Drug Maternal Grandfather Psychiatry Maternal Grandfather BIPOLAR No Known Problems Paternal Grandmother No Known Problems Paternal Grandfather No Known Problems Daughter No Known Problems Daughter other (cyst on brain) Son No Known Problems Son No Ocular Disease No Family History Malig Hyperthermia No Family History Social History Tobacco Use Smoking status: Never Smokeless tobacco: Never Tobacco comments: No smoking in family Vaping Use Vaping status: Never Used Substance Use Topics Alcohol use: Not Currently Drug use: No Current Outpatient Medications Medication Sig acetaminophen (TYLENOL) 500 mg tablet Take 2 tablets by mouth every 6 hours. potassium chloride 20 mEq TbER Take 1 tablet by mouth once daily. apixaban (ELIQUIS) 5 mg tab(s) Take 1 tablet by mouth two times a day. levothyroxine (LEVOXYL) 100 mcg tablet Take 1 tablet by mouth once daily. No current facility-administered medications for this visit. Objective BP 114/68 (BP Site: Right Arm, BP Position: Sitting) Pulse 77 Temp 36.5 ?C (97.7 ?F) Ht 5' 3.5 (1.613 m) Wt 120 lb (54.4 kg) LMP 12/13/2024 (Approximate) SpO2 96% BMI 20.92 kg/m? Physical Exam GENERAL: NAD, alert and oriented. SKIN: Unremarkable, no rash or skin lesions. HEAD: Normocephalic. EYES: PERRLA, EOMI, conjunctiva clear. EARS: External ears normal, canals clear, TM's normal. NOSE/SINUSES: Nares normal. Septum midline. OROPHARYNX: Lips, mucosa, and tongue normal, good dentition. No oral lesions noted. NECK: Supple, no lymphadenopathy, normal thyroid, no carotid bruits. LUNGS: Clear to auscultation bilaterally, no wheezes/rhonchi/rales. HEART: Regular rate and rhythm, no murmurs. No ectopy. EXTREMITIES: Normal, no deformities, no skin discoloration, no edema. NEURO: Awake, alert and oriented x3, cranial nerves II-XII grossly intact, normal gait, no involuntary motions. imaging (02/28) Ultrasound: No deep vein thrombosis, no superficial thrombophlebitis, small hematoma Assessment AND Plan 1. Acquired hypothyroidism (E03.9) Currently on levothyroxine 100 mcg daily. Recent switch from 88 mcg to 100 mcg due to hair loss. Hair loss has slowe (more content not included)... [facility] 04-04-2025 History of Present illness Narrative Subjective Nicole Baum is a 34-year-old female with a history of hypothyroidism, presenting for follow-up and medication refill. Nicole reports significant hair loss since switching from 100 mcg to 88 mcg of levothyroxine, which she attributes to running out of the 100 mcg dose on Thursday and using the remaining 88 mcg dose until today's appointment. She notes that the hair loss has slowed but was initially substantial, describing it as half of what I have. She denies taking a multivitamin. Nicole also mentions a recent hospitalization lasting 10 days, during which she experienced extreme pain and a syncopal episode. She reports that an x-ray showed her lung was half full, and she was initially told the pain was due to heartburn and anxiety. She denies current chest pain or dyspnea, stating that any pain is not consistent and resolves on its own. She is currently taking Lovenox and expects to switch to Eliquis after a vascular medicine appointment tomorrow. She also takes potassium and Tylenol as needed. Bowel movements are regular without issues. 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) Family history of defect 08/26/2021 08/26/2021. Patient son born with a cyst on the brain. It was surgically removed when he was 6 years old. 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 PAST SURGICAL HISTORY Procedure Laterality Date APPENDECTOMY TONSILLECTOMY & ADENOIDECTOMY <AGE 12 1994 FAMILY HISTORY Problem Relation Age of Onset Psychiatry Mother BIPOLAR Thyroid Mother Stroke Father Alcohol abuse Father No Known Problems Sister No Known Problems Sister No Known Problems Sister No Known Problems Brother Arthritis Maternal Grandmother Heart Maternal Grandmother Osteoporosis Maternal Grandmother Stroke Maternal Grandmother other (Hypotension) Maternal Grandmother Heart Maternal Grandfather Hypertension Maternal Grandfather Alcohol/Drug Maternal Grandfather Psychiatry Maternal Grandfather BIPOLAR No Known Problems Paternal Grandmother No Known Problems Paternal Grandfather No Known Problems Daughter No Known Problems Daughter other (cyst on brain) Son No Known Problems Son No Ocular Disease No Family History Malig Hyperthermia No Family History Social History Tobacco Use Smoking status: Never Smokeless tobacco: Never Tobacco comments: No smoking in family Vaping Use Vaping status: Never Used Substance Use Topics Alcohol use: Not Currently Drug use: No Current Outpatient Medications Medication Sig acetaminophen (TYLENOL) 500 mg tablet Take 2 tablets by mouth every 6 hours. potassium chloride 20 mEq TbER Take 1 tablet by mouth once daily. apixaban (ELIQUIS) 5 mg tab(s) Take 1 tablet by mouth two times a day. levothyroxine (LEVOXYL) 100 mcg tablet Take 1 tablet by mouth once daily. No current facility-administered medications for this visit. Objective BP 114/68 (BP Site: Right Arm, BP Position: Sitting) Pulse 77 Temp 36.5 C (97.7 F) Ht 5' 3.5 (1.613 m) Wt 120 lb (54.4 kg) LMP 12/13/2024 (Approximate) SpO2 96% BMI 20.92 kg/m Physical Exam GENERAL: NAD, alert and oriented. SKIN: Unremarkable, no rash or skin lesions. HEAD: Normocephalic. EYES: PERRLA, EOMI, conjunctiva clear. EARS: External ears normal, canals clear, TM's normal. NOSE/SINUSES: Nares normal. Septum midline. OROPHARYNX: Lips, mucosa, and tongue normal, good dentition. No oral lesions noted. NECK: Supple, no lymphadenopathy, normal thyroid, no carotid bruits. LUNGS: Clear to auscultation bilaterally, no wheezes/rhonchi/rales. HEART: Regular rate and rhythm, no murmurs. No ectopy. EXTREMITIES: Normal, no deformities, no skin discoloration, no edema. NEURO: Awake, alert and oriented x3, cranial nerves II-XII grossly intact, normal gait, no involuntary motions. imaging (02/28) Ultrasound: No deep vein thrombosis, no superficial thrombophlebitis, small hematoma Assessment & Plan 1. Acquired hypothyroidism (E03.9) Currently on levothyroxine 100 mcg daily. Recent switch from 88 mcg to 100 mcg due to hair loss. Hair loss has slowed but not completely resolved. - Ordered TSH level to assess current thyroid function. - Refilled levothyroxine 100 mcg. - Advised patient not to change dosage based on hair loss. - Will re-evaluate thyroid levels in 6-8 weeks. 2. TOS (thoracic outlet syndrome) (G54.0) Recent surgery with complications including significant blood loss. Patient reports residual scab at surgical site. - Ordered CBC and iron levels to assess for anemia. - Follow-up with vascular medicine scheduled for tomorrow. - Next follow-up with Dr. Bowden on May 16. 3. 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 No recent issues reported. Scheduled to switch to Eliquis after consultation with Dr. Valle tomorrow. - Continue Lovenox until transition to Eliquis is confirmed. - Monitor for any signs of bleeding or thromboembolic events. Ann Dickinsno PA-C Return in about 4 months (around 08/05/2025). Recording using [employer] software for draft documentation of the visit was discussed with the patient/authorized shared services representative; all questions welcomed and answered. Patient/authorized shared services representative agreed to proceed documented in this encounter [facility] 03-27-2025 Note [facility] 03-27-2025 History of Present illness Narrative Episode Visit Count: 7 Therapist That Will Accept/Oversee The Plan Of Care: Chang Diggs PT Start of Care Date: 02/14/25 Onset Date: 10/05/24 Plan of Care Certification Date: 02/14/25 Next Certification Due Date: 05/09/25 Patient Identified by Name and Date of : Yes REHABILITATION AND SPORTS THERAPY PHYSICAL THERAPY TREATMENT NOTE ASSESSMENT: Matt Baum tolerated the session with fatigue and expected muscle soreness. She demonstrated improvements in tolerance to scapular strengthening. The patient will continue to benefit from ongoing skilled physical therapy to progress toward set goals. PLAN FOR NEXT VISIT: Continue with scapular strenghtening. L UE strengthening SUBJECTIVE: Pt reports that she is doing good with stretching, but having difficulty getting the strengthening in due to her busy lifestyle. Pain: Pain Pain Level: 1 Pain Location: Neck - Left Frequency: Intermittent Post Treatment Pain Post Treatment Pain Location: Neck, Shoulder - Left Post Treatment Symptoms: fatigue OBJECTIVE MEASURES WITH LEVEL OF FUNCTION: Scapular winging B in standing resting position. TREATMENT: Therapeutic Exercise: 1: Seated B UT stretch 3x30 seconds 2: Seated neck extension stretch 3x30 seconds 3: UBE 2 min F and 2 min B (1:! throughout. Discussed current condition) 4: Scapular stability ball on wall 3x10 CW and CCW 5: Supine serratus punches with 2# DB 2x10 6: Body blade B shoulder flexion to 90 degrees 3x30 seconds 7: Shoulder flexion stretch walk outs at counter tops x 5 8: Prone flexion 2x10 Skilled Intervention: Patient was educated in proper exercise technique and purpose for exercises. Skilled judgment was used in selection of appropriate interventions. Correct performance of therapeutic exercises was facilitated with verbal and visual cuing. Billing Therapeutic Exercise Treatment Minutes: 45 Skilled Treatment Time Minutes (timed and untimed codes): 45 Total Session Time (minutes): 45 Session Start Time : 929 Session Stop Time : 1015 RADHA Kirby PT documented in this encounter [facility] 03-23-2025 Note [facility] 03-23-2025 History of Present illness Narrative Images from the original note were not included. Episode Visit Count: 6 Therapist That Will Accept/Oversee The Plan Of Care: Chang Diggs PT Start of Care Date: 02/14/25 Onset Date: 10/05/24 Plan of Care Certification Date: 02/14/25 Next Certification Due Date: 05/09/25 Patient Identified by Name and Date of : Yes REHABILITATION AND SPORTS THERAPY PHYSICAL THERAPY PROGRESS REPORT PLAN OF CARE UPDATE: Assessment: Matt Baum demonstrates difficulty with lifting, recreational activities, and carrying and improvements in neck and shoulder AROM. The patient has progressed toward goals. Patient continues to present with impairments in ADL's, independence in exercise, overall function, range of motion, and strength that interfere with lifting, reaching behind back, reaching overhead, cleaning, dressing . Current prognosis is Good due to: current objective clinical presentation . The patient will benefit from continued skilled therapy services to meet the updated goals for this plan of care as noted below. Goals updated 03/23/2025 Goals for Episode of Care: established 02/14/25 Independent in a Home Exercise Program. - Met Patient will decrease pain rating by 2 points to meet minimal clinical important difference for numeric pain rating scale. - Progressing overall Restore pain free cervical ROM to WNL to allow for ease of driving and scanning the environment. - Nearly met Drive with no aggravation of pain/symptoms. - Not assessed Pt will demo LUE strength of 5/5 for ease of lifting up her children - Progressing Pt will demo L shoulder elevation to WNL for ease of reaching up into high cabinets and ease of getting dressed. - MET Patient Goals: Return to PLOF Time Frame for Goals and Treatment : 05/09/25 Patient Goals: Return to PLOF Planned Interventions, Frequency, and Duration: 1x/week, 4 weeks Total Number of Visits Planned: 4 Patient to be seen for Therapeutic exercise (06562), Neuromuscular re-education (88947), Manual therapy (55210), Therapeutic activities (05918), Self-fdc management (48358), Gait Training (22603) PLAN FOR NEXT VISIT: Continue with LUE strengthening as tolerated SUBJECTIVE: She is more sore today. Had to take a muscle relaxer. But she can explain this because she has been so busy. She has been doing the stretches. Pt states she feels 50% improvement overall. She ran yesterday and she did not have pain with that. Still having difficulty with lifting heavier things. Lifting her daughter and lifting a laundry basket is challenging. Patient Goals: Return to PLOF Functional Limitations: lifting, reaching behind back, reaching overhead, cleaning, dressing Prior Level of Function: Independent without limitations Intake Information: Prescription present Previous Treatment: Surgery , Physical Therapy Pain: Pain Pain Level: 5 Pain Location: Neck - Left Description: Sharp Frequency: Continuous PROMIS Scales 02/14/2025 Higher is Better Phys Func - T Score 30 (moderate dysfunction) Phys Func - Percentile 2 Self-Eff Symptom - T Score 40 (Average) Self-Eff Symptom - Percentile 16 T-scores: mean of general population = 50. 5 points is clinically meaningfully difference Percentiles provide an indication of how the patient's score ranks in relation to the general population. Higher percentile rankings indicate better function/quality of life. 50th percentile is the average of the general population and indicates half of respondents had a worse score. OBJECTIVE MEASURES WITH LEVEL OF FUNCTION: Posture / Alignment Posture: Good Cervical Spine ROM Cervical Flexion AROM (degrees) : 60 Degrees Cervical Extension AROM (degrees) : 25 Degrees Cervical Rotation Right AROM (degrees) : 82 Degrees Cervical Rotation Left AROM (degrees) : 85 Degrees UE AROM R UE AROM: WNL L UE AROM: WNL UE and Cervical Strength Strength Tested: Shoulder All L Shoulder Flexion: 4/5 L Shoulder Abduction (C5): 4/5 L Shoulder Internal Rotation: 4+/5 L Shoulder External Rotation: 4/5 L Elbow Extension (C7): 5/5 L Elbow Flexion (C6): 5/5 TREATMENT: Therapeutic Exercise: 1: All objective measures taken 2: UBE 2 min F and 2 min B (1:1 time spent working on strength and muscular endurance) 3: Standing scaption 2# 3 x 15 Skilled Intervention: Patient was educated in proper exercise technique and purpose for exercises. Correct performance of therapeutic exercises was facilitated with verbal cuing. Billing Therapeutic Exercise Treatment Minutes: 35 Skilled Treatment Time Minutes (timed and untimed codes): 35 Total Session Time (minutes): 35 Session Start Time : 1008 Session Stop Time : 1043 Chang Diggs PT documented in this encounter [facility] 03-16-2025 History of Present illness Narrative Program_ID:[id number] Access Code: [email or web address] URL: [email or web address] Date: 03-16-2025 Prepared By: Estefania Benavides Program Notes Exercises - Standing Cervical Rotation AROM with Overpressure - 1 x daily - 7 x weekly - 4 sets - 5 reps - Seated Cervical Retraction and Extension - 1 x daily - 7 x weekly - 4 sets - 5 reps - Seated Cervical Sidebending AROM - 1 x daily - 7 x weekly - 4 sets - 5 reps - Corner Pec Minor Stretch - 1 x daily - 7 x weekly - 4 sets - reps - Seated Scalenes Stretch - 1 x daily - 7 x weekly - 1 sets - 3 reps - Shoulder External Rotation and Scapular Retraction with Resistance - 1 x daily - 7 x weekly - 2 sets - 10 reps - Standing Shoulder Flexion with Resistance - 1 x daily - 7 x weekly - 4 sets - 10 reps - Standing Single Arm Bicep Curls Supinated with Dumbbell - 1 x daily - 7 x weekly - 4 sets - 10 reps Episode Visit Count: 5 Therapist That Will Accept/Oversee The Plan Of Care: Chang Diggs PT Start of Care Date: 02/14/25 Onset Date: 10/05/24 Plan of Care Certification Date: 02/14/25 Next Certification Due Date: 05/09/25 Patient Identified by Name and Date of : Yes REHABILITATION AND SPORTS THERAPY PHYSICAL THERAPY TREATMENT NOTE ASSESSMENT: Matt Baum tolerated the session with expected muscle soreness. She demonstrated good form with all therapeutic exercises with fatigue. The patient will continue to benefit from ongoing skilled physical therapy to progress toward set goals. PLAN FOR NEXT VISIT: Progress note SUBJECTIVE: Some ROM are still tight. The STM was helpful after the last session. She has noticed some painful clicking in the L elbow after the ER strengthening exercises. Pain: Pain Pain Location: Neck - Left OBJECTIVE MEASURES WITH LEVEL OF FUNCTION: Trigger point palpated in the L upper trap Tender over the L pec major TREATMENT: Therapeutic Exercise: 1: Shoulder flexion 2# x 10 2: Shoulder flexion 3# 2 x 10 3: bicep curl 3# 3 x 10 4: No moneys lvl 2 band 2 x 10 5: L shoulder ext lvl 2 band 3 x 10 Skilled Intervention: Patient was educated in proper exercise technique and purpose for exercises. Manual Therapy: 1: L pec stretch in supine x 60 sec 2: STM over pec major in supine 3: STM push to tolerance over L upper trap TP Skilled Intervention: Manual skills to improve joint mobility, ROM, and decrease pain. Utilized anatomy knowledge of the clinician, and assessment of patient's response to intervention. Billing Therapeutic Exercise Treatment Minutes: 35 Manual TherapyTreatment Minutes: 15 Skilled Treatment Time Minutes (timed and untimed codes): 50 Total Session Time (minutes): 50 Session Start Time : 958 Session Stop Time : 1048 Chang Diggs PT documented in this encounter [facility] 03-16-2025 Note [facility] 03-16-2025 Note [facility] 03-16-2025 History of Present illness Narrative [facility] [place] Department of Cardiovascular Medicine VIRTUAL VIDEO VISIT ESTABLISHED OUTPATIENT VISIT SERVICE DATE: 10/18/2024 Patient: Matt Baum SERVICE TIME: 7:59 AM : 1990 This is a virtual video visit. It required patient-provider interaction for the medical decision making as documented below. Matt Baum has consented to this video encounter. I have communicated my name and active licensure. The patient's identity and physical location were verified at the time of this visit. Either the patient or their legal shared services representative has been informed of the risks and benefits of -- and alternatives to -- treatment through a remote evaluation and consents to proceed with the evaluation remotely. Chief complaint: VTE Interval history: Last seen 02/28/25. Feeling well, no new concerns. No new arm swelling or pain. Tolerating enoxaparin injections aside from some swelling/bleeding at injection sites. Shortness of breath has improved. History of present illness 10/17/23: Ms. Baum is a 33yo F hx hypothyroidism here to establish care for VTE. 05/2019 developed PE, no DVT. No transient risk factors. Was started on warfarin and then switched to apixaban. 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 APS panel negative. Was switched to enoxaparin during last [id number] and discontinued this 01/2024 due to concern that it was exacerbating a pereira pepper allergy. 05/2024 was admitted for new spontaneous L IJ, subclavian and axillary DVT, as well as reported L proximal DVT for which she was resumed enoxaparin. Several ED visits since then including 06/2024 for thigh hematoma after which she was switch to apixaban. Duplex negative for DVT. 08/04/24 presented to ED for new forearm pain where duplex was reportedly negative and she was continued on apixaban. 09/14/24 went back to ED after hitting her arm on a door knob. Duplex reported acute axillary DVT. Was switched back to enoxaparin. Presented to ED 09/29/24 due to to possible rash on enoxaparin. Was continued on enoxaparin. Most recently admitted 10/12-10/14/24 due to popping sensation in LUE. Duplex with chronic post thrombotic change. She was continued on enoxaparin. APS panel negative. Reports 100% compliance with all apixaban and enoxaparin doses in the past. Generally feeling well though still endorsing persistent burning pain at L upper chest/shoulder and upper arm. Reports a low level of baseline soreness and heaviness to the L arm. Notes numbness/tingling down the arm whenever she lays on it. Does not work out regularly. Played volleyball and basketball as a teenager. 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 No weight lifting. No family history of VTE. Never smoker. No drug use. , 5 children. 6 pregnancies including an 8 week miscarriage. 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) Family history of defect 08/26/2021 08/26/2021. Patient son born with a cyst on the brain. It was surgically removed when he was 6 years old. 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 PE (pulmonary thromboembolism) (HCC) 05/10/2019 05/10/2019 Situational stress 01/31/2020 Thoracic outlet syndrome 10/25/2024 Vocal cord dysfunction Paradoxical VOCAL CORD DYSFUNCTION PAST SURGICAL HISTORY Procedure Laterality Date APPENDECTOMY TONSILLECTOMY & ADENOIDECTOMY <AGE 12 1994 FAMILY HISTORY Problem Relation Age of Onset Psychiatry Mother BIPOLAR Thyroid Mother Stroke Father Alcohol abuse Father No Known Problems Sister No Known Problems Sister No Known Problems Sister No Known Problems Brother Arthritis Maternal Grandmother Heart Maternal Grandmother Osteoporosis Maternal Grandmother Stroke Maternal Grandmother other (Hypotension) Maternal Grandmother Heart Maternal Grandfather Hypertension Maternal Grandfather Alcohol/Drug Maternal Grandfather Psychiatry Maternal Grandfather BIPOLAR No Known Problems Paternal Grandmother No Known Problems Paternal Grandfather No Known Problems Daughter No Known Problems Daughter other (cyst on brain) Son No Known Problems Son No Ocular Disease No Family History Malig Hyperthermia No Family History Social History Tobacco Use Smoking status: Never Smokeless tobacco: Never Tobacco comments: No smoking in family Vaping Use Vaping status: Never Used Substance Use Topics Alcohol use: Not Currently Drug use: No ALLERGIES Allergen Reactions Pereira Pepper Anaphylaxis, Other: See Comments Latex Anaphylaxis, Hives Amoxicillin Hives, Swelling Banana Swelling Latex Hives Verified by skin testing Nubain [Nalbuphine * Rash Avocado Itching Carrot Itching [place] Derivati* Other: See Comments Kiwi Itching Hydroxyzine Other: See Comments Extreme fatigue Omeprazole Other: See Comments nausea Sertraline Other: See Comments Bruising, stopped by hematology 12/3022 was interacting with blood thinners CURRENT MEDICATIONS enoxaparin (LOVENOX) 40 mg/0.4 mL Inject 0.4 mL subcutaneously once daily. Inject entire contents of one(1) syringe senna-docusate (SENNA-S) 8.6-50 mg per tablet Take 2 tablets by mouth two times a day. (Patient not taking: Reported on 02/28/2025) levothyroxine (SYNTHROID) 88 mcg tablet Take 1 tablet by mouth daily at 6 am. acetaminophen (TYLENOL) 500 mg tablet Take 2 tablets by mouth every 6 hours. docusate sodium (COLACE) 100 mg capsule Take 1 capsule by mouth two times a day. (Patient not taking: Reported on 02/28/2025) methocarbamol (ROBAXIN) 750 mg tablet Take 1 tablet by mouth three times a day. (Patient taking differently: Take 500 mg by mouth three times a day.) ibuprofen (MOTRIN) 400 mg tablet Take 1-2 tablets by mouth every 8 hours as needed for pain. (Patient not taking: Reported on 02/28/2025) potassium chloride 20 mEq TbER Take 1 tablet by mouth once daily. PHYSICAL EXAMINATION: VIDEO EXAM: (if completed, performed via video enabled technology) GENERAL: alert and appropriate, in no distress, well-hydrated, well nourished, and happy, smiling, interactive PATIENT ENTERED QUESTIONNAIRE SCORES 11/30/2024 PHQ-9 PHQ-2 Score 0 PHQ-9 Score 0 02/14/2025 01/22/2024 11/08/2020 PROMIS Global Health - (T-Scores - the mean of general population = 50. Five points is a clinically meaningful difference.) Physical T-Score 29.6 50.8 44.9 Mental T-Score 38.8 48.3 38.8 Labs: 02/28/25 Hgb 11.2 Plt 245 Imaging: CXR 02/28/25: Compared to 02/15/2025, interval improvement without resolution of a lentiform opacity at the left apex, likely secondary to a fluid collection which may be pleural or extrapleural in origin. Radiographic follow-up is suggested. Vascular studies: UE venous duplex 02/28/25: RIGHT SIDE - DEEP VEINS Negative for acute deep vein thrombosis. Normal color and pulsed Doppler signals noted; however, unable to compress the subclavian vein and axillary vein. LEFT SIDE - DEEP VEINS Negative for acute deep vein thrombosis. Normal color and pulsed Doppler signals noted; however, unable to compress the subclavian vein due to recent procedure. Nonvascular structure versus hematoma noted at the clavicle measuring approximately 2.3 x 2.3 cm. 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 Started on apixaban. 2020 switched to enoxaparin during 01/2024 - enoxaparin discontinued due to concern it was worsening her pereira pepper allergy 05/2024 - LIJ, subclavian, axillary DVT, and LLE DVT. Started on enoxaparin. 06/2024 - thigh hematoma. Switched to apixban. Duplex negative though images were of suboptimal quality. 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 01/2025 - L FRR c/b post-op L hemothorax while on IV UFH and acute anemia requiring 2U PRBC. Anticoagulation held. 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 Shortness of breath and anemia have improved. No new UE symptoms. Tolerating enoxaparin 40mg daily - will increase to 60mg BID (therapeutic dosing) and re-assess in 2 weeks. If she continues to tolerate this plan to switch to apixaban. Virtual visit in 2 weeks. Nata Valle MD, FS, VI Section of Vascular Medicine, [facility] documented in this encounter [facility] 03-08-2025 History of Present illness Narrative Program_ID:[id number] Access Code: [email or web address] URL: [email or web address] Date: 03-08-2025 Prepared By: Estefania Benavides Program Notes Exercises - Standing Cervical Rotation AROM with Overpressure - 1 x daily - 7 x weekly - 4 sets - 5 reps - Seated Cervical Retraction and Extension - 1 x daily - 7 x weekly - 4 sets - 5 reps - Seated Cervical Sidebending AROM - 1 x daily - 7 x weekly - 4 sets - 5 reps - Seated Shoulder Flexion AAROM with Jigna Behind - 1 x daily - 7 x weekly - 4 sets - 10 reps - Corner Pec Minor Stretch - 1 x daily - 7 x weekly - 4 sets - reps - Seated Scalenes Stretch - 1 x daily - 7 x weekly - 1 sets - 3 reps - Shoulder Horizontal Abduction - Thumbs Up - 1 x daily - 7 x weekly - 2 sets - 10 reps - Standing Shoulder Flexion to 90 Degrees - 1 x daily - 7 x weekly - 2 sets - 10 reps - Shoulder Abduction - Thumbs Up - 1 x daily - 7 x weekly - 2 sets - 10 reps - Shoulder External Rotation and Scapular Retraction with Resistance - 1 x daily - 7 x weekly - 2 sets - 10 reps - Supine Chest Stretch with Elbows Bent - 1 x daily - 7 x weekly - 2 sets - 10 reps Episode Visit Count: 4 Therapist That Will Accept/Oversee The Plan Of Care: Chang Diggs PT Start of Care Date: 02/14/25 Onset Date: 10/05/24 Plan of Care Certification Date: 02/14/25 Next Certification Due Date: 05/09/25 Patient Identified by Name and Date of : Yes REHABILITATION AND SPORTS THERAPY PHYSICAL THERAPY TREATMENT NOTE ASSESSMENT: Matt Baum tolerated the session with expected muscle soreness. She demonstrated ongoing tightness throughout L pectorals. Tender with STM to the area. Able to tolerated light progression of resistance without pain, bilateral shoulder ER added to HEP. Discussed multiple variations for pectoral stretching. The patient will continue to benefit from ongoing skilled physical therapy to progress toward set goals. PLAN FOR NEXT VISIT: progress note. Continue with AROM of L shoulder progressing to resistance. Pectoral and cevical stretching, assess repsonse to manual SUBJECTIVE: Notes she weaned off muscle relaxer. Some days are better than others. Takes tylenol to sleep sometimes. Pain: Pain Pain Level: 3 Pain Location: Neck - Left Post Treatment Pain Post Treatment Pain Location: Neck - Left Post Treatment Symptoms: sore OBJECTIVE MEASURES WITH LEVEL OF FUNCTION: TTP L pectorals TREATMENT: Therapeutic Exercise: 1: Seated B UT stretch 3x30 seconds 2: *Supine bilateral shoulder ER L1 band 2x10 3: Supine shoulder flexion AAROM for lat stretching 10 sec hold x10 4: Standing shoulder extension L2 band 2x12 5: Supine on foam roller, pect stretch x 3 minutes 6: Seated Cervical extension (platysma stretch) 3x30 sec holds 7: *Supine bilat hands behind the head shoulder ER stretch x30 sec Skilled Intervention: Patient was educated in proper exercise technique and purpose for exercises. Reviewed and educated patient on additions/changes for home exercise program as above (*). Skilled judgment was used in selection of appropriate interventions. Provided written instruction for home exercise program to facilitate proper performance and compliance. Correct performance of therapeutic exercises was facilitated with verbal and visual cuing. Manual Therapy: 1: STM to L pectorals for pain relief 2: Pec minor stretch PT assisted 2x30 sec Skilled Intervention: Manual skills to improve joint mobility, ROM, and decrease pain. Utilized anatomy knowledge of the clinician, and assessment of patient's response to intervention. Billing Therapeutic Exercise Treatment Minutes: 28 Manual TherapyTreatment Minutes: 15 Skilled Treatment Time Minutes (timed and untimed codes): 43 Total Session Time (minutes): 48 Session Start Time : 1758 Session Stop Time : 1846 Thais Mishra PT DPT documented in this encounter [facility] 03-08-2025 Note [facility] 03-01-2025 History of Present illness Narrative Program_ID:[id number] Access Code: [email or web address] URL: [email or web address] Date: 03-01-2025 Prepared By: Estefania Benavides Program Notes Exercises - Standing Cervical Rotation AROM with Overpressure - 1 x daily - 7 x weekly - 4 sets - 5 reps - Seated Cervical Retraction and Extension - 1 x daily - 7 x weekly - 4 sets - 5 reps - Seated Cervical Sidebending AROM - 1 x daily - 7 x weekly - 4 sets - 5 reps - Seated Shoulder Flexion AAROM with Jigna Behind - 1 x daily - 7 x weekly - 4 sets - 10 reps - Corner Pec Minor Stretch - 1 x daily - 7 x weekly - 4 sets - reps - Seated Scalenes Stretch - 1 x daily - 7 x weekly - 1 sets - 3 reps - Shoulder Horizontal Abduction - Thumbs Up - 1 x daily - 7 x weekly - 2 sets - 10 reps - Standing Shoulder Flexion to 90 Degrees - 1 x daily - 7 x weekly - 2 sets - 10 reps - Shoulder Abduction - Thumbs Up - 1 x daily - 7 x weekly - 2 sets - 10 reps Episode Visit Count: 3 Therapist That Will Accept/Oversee The Plan Of Care: Chang Diggs PT Start of Care Date: 02/14/25 Onset Date: 10/05/24 Plan of Care Certification Date: 02/14/25 Next Certification Due Date: 05/09/25 Patient Identified by Name and Date of : Yes REHABILITATION AND SPORTS THERAPY PHYSICAL THERAPY TREATMENT NOTE ASSESSMENT: Matt Baum tolerated the session with fatigue and expected muscle soreness. She demonstrated improvements in tolerance to AROM of L shoulder WNL, but fatigue. The patient will continue to benefit from ongoing skilled physical therapy to progress toward set goals. PLAN FOR NEXT VISIT: Continue with AROM of L shoulder progressing to resistance. Pectoral and cevical stretching. SUBJECTIVE: Pt reports that she is stiff today. Pt saw surgeon yesterday and she is allowed to complete exercsies with resistance per therapist discretion. Pain: Pain Pain Level: 5 Pain Location: Neck - Left Post Treatment Pain Post Treatment Pain Level: No Change Post Treatment Pain Location: Neck - Left OBJECTIVE MEASURES WITH LEVEL OF FUNCTION: L shoulder flexion and abduction WNL with fatigue. TREATMENT: Therapeutic Exercise: 1: Seated B UT stretch 3x30 seconds 2: Seated Cervical extension (platysma stretch) 3x30 sec holds 3: Backwards shoulder rolls x20 4: *Seated horizontal abduction 2x10 5: Supine on foam rolloer, pect stretch x 3 minutes 6: *Seated AROM flexion x10 B 7: *Seated AROM abduction 2x10 Skilled Intervention: Patient was educated in proper exercise technique and purpose for exercises. Reviewed and educated patient on additions/changes for home exercise program as above (*). Skilled judgment was used in selection of appropriate interventions. Provided written instruction for home exercise program to facilitate proper performance and compliance. Correct performance of therapeutic exercises was facilitated with verbal and visual cuing. Billing Therapeutic Exercise Treatment Minutes: 41 Skilled Treatment Time Minutes (timed and untimed codes): 41 Total Session Time (minutes): 41 Session Start Time : 1150 Session Stop Time : 1231 RADHA Kirby, PT, DPT. documented in this encounter [facility] 03-01-2025 Note [facility] 02-28-2025 History of Present illness Narrative Images from the original note were not included. Heart , Vascular and Thoracic [place] DEPARTMENT OF VASCULAR SURGERY OUTPATIENT VISIT DATE February 28, 2025 OUTPATIENT VISIT TYPE POST-OPERATIVE PRIMARY CARE PHYSICIAN: Ann Dickinson PA-C HISTORY OF PRESENT ILLNESS: 34 year old female now 4 weeks out from the procedure listed below. Followed by vascular surgery for: - TOS w/ mixed neurogenic and venous features reports symptoms of swelling and pain. Back to 2018 with escalation in May. 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 No significant arm edema or chest wall collaterals. Positive TTP over supraclavicular space and pectoralis minor space. Positive FAST. On 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. Recent vascular procedure: - 02/01/25 Quatromoni - L paraclavicular FRR with venolysis Hospital course complicated by: - Hemothorax requiring transfer to the ICU and chest tube as well as stopping 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 Discharged to: - Home 02/10 Interval admission/operations since discharge: - Called the office a few times with recurrent left chest pain after working with physical therapy and went to urgent care with an x-ray that looked better. Her hemoglobin has been stable since discharge. - Chest x-ray today Today: - No drainage, dehiscence, or signs of acute infection around incisions sites - She notes that her ROM seems to be improving - Starting to improve with pain. Started at an 8/10 and is now at a 6/10 on the pain scale - Completing physical therapy once a week, just doing stretching exercises - States that she will start AC in approximately 2 more weeks - Patient notes some throbbing and tingling pain every other day AMBIENCE AI: The patient reports ongoing recovery following recent surgery and hospitalization. She notes improvement in her condition, with a reduction in hematoma size to approximately 2 cm as observed on recent imaging. She has been advised to hold off on 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 for 2 more weeks and has a follow-up virtual appointment scheduled for March 30. She is actively participating in physical therapy and demonstrates progress in range of motion exercises. However, she reports discomfort when attempting backward movements and notes that her neck's range of motion is not fully restored. She has been diligent in preventing adhesive capsulitis and is inquiring about resuming resistance training and normal activities, including opening doors and lifting her child. She describes a sensation of pulling and swelling in her arm and mentions a residual stitch from the chest tube, which has been causing irritation. She recounts a recent episode of significant pain, leading to an EKG and administration of Dilaudid. She also experienced a syncopal episode on a Thursday, which she attributes to severe discomfort rather than heartburn, as initially suggested by a clinician. She expresses concern about a potential misdiagnosis of clots in her right arm, as mentioned in her discharge papers, though she has not been previously informed of this condition. She reports prior tingling sensations in her right arm, which she attributes to compensatory use due to limitations in her left arm. 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 Vascular health status: Smoking status: never Anti-platelet/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 (if A/C - indication?): stopped taking lovenox, will continue AC in 2 weeks following appointment with vascular medicine Statin or [id number]: N/A Past Vascular Surgeries: - 02/01/25 Quatromoni - L paraclavicular FRR with venolysis Other Non Vascular PMH/PSH: N/A Most recent cardiac testing (TTE, Stress, LHC): - 06/03/24 limited echo: Impression CONCLUSIONS: - Exam indication: Arrhythmia - The left ventricle is normal in size. Left ventricular systolic function is normal. EF = 58 5% (2D 4-ch.) Normal left ventricular diastolic function. - The right ventricle is normal in size. Right ventricular systolic function is normal. - Exam was compared with the prior echocardiographic exam performed on 12/17/2006. No images or report available for comparison. 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) Family history of defect 08/26/2021 08/26/2021. Patient son born with a cyst on the brain. It was surgically removed when he was 6 years old. 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 acetaminophen (TYLENOL) 500 mg tablet Take 2 tablets by mouth every 6 hours. methocarbamol (ROBAXIN) 750 mg tablet Take 1 tablet by mouth three times a day. (Patient taking differently: Take 500 mg by mouth three times a day.) potassium chloride 20 mEq TbER Take 1 tablet by mouth once daily. senna-docusate (SENNA-S) 8.6-50 mg per tablet Take 2 tablets by mouth two times a day. (Patient not taking: Reported on 02/28/2025) docusate sodium (COLACE) 100 mg capsule Take 1 capsule by mouth two times a day. (Patient not taking: Reported on 02/28/2025) ibuprofen (MOTRIN) 400 mg tablet Take 1-2 tablets by mouth every 8 hours as needed for pain. (Patient not taking: Reported on 02/28/2025) PHYSICAL EXAM: VITALS: BP 110/71 Pulse 76 LMP 12/13/2024 - Incision site well coapted with no signs of dehiscence or acute infection - Close to full ROM with shoulder flexion and abduction - Limited ROM with shoulder extension - Slight limitation and pain with neck ROM DIAGNOSTIC TESTS REVIEWED FOR TODAY'S VISIT: CXR today: Improvement of left apical pleural cap IMPRESSION: Compared to 02/15/2025, interval improvement without resolution of a lentiform opacity at the left apex, likely secondary to a fluid collection which may be pleural or extrapleural in origin. Radiographic follow-up is suggested. CXR 02/16 improvement in left pleural Hematoma CXR 02/10 Venous duplex IMPRESSION RIGHT SIDE - DEEP VEINS Negative for acute deep vein thrombosis. Normal color and pulsed Doppler signals noted; however, unable to compress the subclavian vein and axillary vein. LEFT SIDE - DEEP VEINS Negative for acute deep vein thrombosis. Normal color and pulsed Doppler signals noted; however, unable to compress the subclavian vein due to recent procedure. Nonvascular structure versus hematoma noted at the clavicle measuring approximately 2.3 x 2.3 cm. IMPRESSION: 1 month out from L paraclavicular first rib resection with venolysis complicated by postoperative hemothorax requiring chest tube overall doing well with improving range of motion. Incisions healing well. Subclavian vein widely patent duplex today Nata Valle Prefers to hold off for 2 more weeks on 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 PLAN and RECOMMENDATIONS: - RTC in 3 months with repeat duplex and chest x-ray - Continue working with physical therapy with initiation of resistance training with uptitration at the direction of physical therapy - F/u Nata Valle for AC. At this point would be OK to resume from my perspective - Recommend continuing medical optimization of his cardiovascular risk factors at the direction of her medical team as outlined above This note may have been partially generated using the [employer] voice recognition system as well as artificial intelligence technology. While every effort was made to correct voice recognition errors, kindly be aware that some errors may occasionally occur. The patient consented to the use of ambient [employer] software for draft documentation of the visit consistent with [facility] s Notice of Privacy Practices. Praful Guajardo MD Vascular Surgery Staff March 01, 2025 6:41 AM documented in this encounter [facility] 02-28-2025 Note [facility] 02-28-2025 History of Present illness Narrative Images from the original note were not included. Heart and Vascular [place] Renetta Gastelum Department of Cardiovascular Medicine SECTION OF VASCULAR MEDICINE OUTPATIENT VISIT DATE February 28, 2025 OUTPATIENT VISIT TYPE ESTABLISHED Name: Matt Baum Chief complaint: VTE Interval history: Last seen 10/17/24. Underwent L FRR 01/2025 c/b post-op L hemothorax while on IV UFH requiring chest tube and acute anemia with Hgb drop to ~7 requiring transfusion. Was discharged off 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. Generally feeling well today, no new concerns. Endorses ongoing discomfort at surgical site that is manageable with muscle relaxants and Tylenol. No new arm swelling. Still feels fatigued and slightly short of breath with activity. Endorsing hair loss. Doing PT. History of present illness 10/17/24: Ms. Baum is a 33yo F hx hypothyroidism here to establish care for VTE. 05/2019 developed PE, no DVT. No transient risk factors. Was started on warfarin and then switched to apixaban. 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 APS panel negative. Was switched to enoxaparin during last [id number] and discontinued this 01/2024 due to concern that it was exacerbating a pereira pepper allergy. 05/2024 was admitted for new spontaneous L IJ, subclavian and axillary DVT, as well as reported L proximal DVT for which she was resumed enoxaparin. Several ED visits since then including 06/2024 for thigh hematoma after which she was switch to apixaban. Duplex negative for DVT. 08/04/24 presented to ED for new forearm pain where duplex was reportedly negative and she was continued on apixaban. 09/14/24 went back to ED after hitting her arm on a door knob. Duplex reported acute axillary DVT. Was switched back to enoxaparin. Presented to ED 09/29/24 due to to possible rash on enoxaparin. Was continued on enoxaparin. Most recently admitted 10/12-10/14/24 due to popping sensation in LUE. Duplex with chronic post thrombotic change. She was continued on enoxaparin. APS panel negative. Reports 100% compliance with all apixaban and enoxaparin doses in the past. Generally feeling well though still endorsing persistent burning pain at L upper chest/shoulder and upper arm. Reports a low level of baseline soreness and heaviness to the L arm. Notes numbness/tingling down the arm whenever she lays on it. Does not work out regularly. Played volleyball and basketball as a teenager. 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 No weight lifting. No family history of VTE. Never smoker. No drug use. , 5 children. 6 pregnancies including an 8 week miscarriage. There is no interval change in the past medical, family, surgical, or social history. Review of Systems: Reviewed and completed per patient questionnaire, all others negative unless otherwise stated in the HPI. Allergies: ALLERGIES Allergen Reactions Pereira Pepper Anaphylaxis, Other: See Comments Latex Anaphylaxis, Hives Amoxicillin Hives, Swelling Banana Swelling Latex Hives Verified by skin testing Nubain [Nalbuphine * Rash Avocado Itching Carrot Itching [place] And Derivati* Other: See Comments Kiwi Itching Hydroxyzine Other: See Comments Extreme fatigue Omeprazole Other: See Comments nausea Sertraline Other: See Comments Bruising, stopped by hematology 12/3022 was interacting with blood thinners Medications: Current Outpatient Medications Medication Sig Dispense Refill senna-docusate (SENNA-S) 8.6-50 mg per tablet Take 2 tablets by mouth two times a day. levothyroxine (SYNTHROID) 88 mcg tablet Take 1 tablet by mouth daily at 6 am. 30 tablet 0 acetaminophen (TYLENOL) 500 mg tablet Take 2 tablets by mouth every 6 hours. 90 tablet 0 docusate sodium (COLACE) 100 mg capsule Take 1 capsule by mouth two times a day. 90 capsule 0 methocarbamol (ROBAXIN) 750 mg tablet Take 1 tablet by mouth three times a day. 20 tablet 0 ibuprofen (MOTRIN) 400 mg tablet Take 1-2 tablets by mouth every 8 hours as needed for pain. 20 tablet 0 potassium chloride 20 mEq TbER Take 1 tablet by mouth once daily. 90 tablet 3 No current facility-administered medications for this visit. Physical Examination: There were no vitals filed for this visit. Gen: NAD, well developed, well nourished Ext: warm, no edema, dry. Surgical site clean and dry Neuro: Aox3 Labs: 02/10/25 Estimated Creatinine Clearance: 101.2 mL/min (based on SCr of 0.65 mg/dL). Imaging: CT chest 02/06/25: Status post resection of the left first rib with postoperative apical and upper anterior chest wall and intrathoracic fluid with air foci and hemorrhagic component Small left pleural effusion with dense/hemorrhagic component. Tiny left pneumothorax. Left lower lobe opacities, likely atelectasis, associated infection or aspiration is possible in the right clinical setting CXR 02/15/25: Lungs and pleura: Slight decrease in size of left apical opacification possibly small loculated effusion or hematoma. There still remains left mid lung atelectasis/scarring. Stable mild elevation of the left hemidiaphragm. No pleural effusion. No pneumothorax. Cardiomediastinal silhouette: Stable cardiomediastinal silhouette. Bones and soft tissues: Status post resection imaging of the left first rib with clips overlying the supraclavicular region. 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 Started on apixaban. 2020 switched to enoxaparin during 01/2024 - enoxaparin discontinued due to concern it was worsening her pereira pepper allergy 05/2024 - LIJ, subclavian, axillary DVT, and LLE DVT. Started on enoxaparin. 06/2024 - thigh hematoma. Switched to apixban. Duplex negative though images were of suboptimal quality. 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 01/2025 - L FRR c/b post-op L hemothorax while on IV UFH and acute anemia requiring 2U PRBC. Anticoagulation held. 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 Did require transfusion for acute anemia which has since improved. Last CXR 02/2025 with slight improvement. She is doing well today but still feeling fatigued and short of breath. Will check CBC. Advised to discuss hair loss with PCP - synthroid may need adjustment as TSH was high last checked. Scheduled for CXR and duplex today per vascular surgery. Continue withholding 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. Virtual visit in 2 weeks. If she remains clinically stable at the time, will start enoxaparin 40mg daily. 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 Above plan was communicated to Dr. Guajardo. Nata Valle MD, FS, VI Section of Vascular Medicine, [facility] documented in this encounter [facility] 02-28-2025 Note [facility] 02-24-2025 Note [facility] 02-15-2025 History of Present illness Narrative Radiology Service Progress Note PATIENT NAME: Matt Baum DATE OF SERVICE: February 15, 2025 TIME: 9:32 AM PATIENT IDENTITY VERIFICATION COMPLETED USING TWO (2) IDENTIFIERS: Name and Date of confirmed by patient verbally. FALL SCREENING: Has the patient had 2 falls in the last year or 1 fall with injury or currently using an Ambulatory Assistive Device (Walker, Cane, Wheelchair, Crutches, etc.)? No PATIENT GENDER DATA: Assigned female at . status: : No status: NO. PATIENT RELEVANT IMPLANT DATA REVIEWED: Not Applicable PATIENT PRESENTS WITH AN IMPLANTABLE OR ATTACHED SENIOR AUTOMATION ENGINEER: No RADIOLOGY DEPARTMENT: General X-ray: Exam(s) Completed: Chest X-Ray PERIPHERAL IV DATA: Not applicable SIGNED BY: Marysol Pabon February 15, 2025 9:32 AM documented in this encounter [facility] 02-15-2025 Note [facility] 02-15-2025 Telephone encounter Note Ms. Baum is currently in Urgent Care with the following symptoms: feels like there is a ball behind her shoulder blade and her chest is hurting. She was advised to contact the office to find out what testing may be needed. Will page the MIXING OPERATOR Addendum [id number]: Spoke with patient. She started to notice an increase in pain in her chest and shoulder blade over the last 2 days. Patient is s/p L 1st rib resection 02/01/2025, hospital course complicated by L hemathorax requiring chest tube placement. She was discharged to home on 02/10/2025. She was working with PT and noticed the pain behind her shoulder blade. Her PT was concerned about her pain and felt she should get it checked out. She also states her 2 yr old daughter step on the left side of her chest and her pain has worsened over the last 24 hrs. She is currently seeking care at a [facility] urgent care. She had blood work this morning, H/H which is improved from the time of discharge (07/03). I explained to her that my concern for bleeding is low. Due to the increased pain it is worth getting a CXR, which she is waiting to get done today. I instructed her to get rest and continue physical therapy as tolerated. I will review her CXR and reach out to her after. She knows to seek immediate medical attention if her symptoms worsen. She knows to call our office with any further questions or concerns. Maggie Lundberg APRN.DRY HOUSE WORKER [facility] Work Phone: 02-15-2025 Miscellaneous Notes Ms. Baum is currently in Urgent Care with the following symptoms: feels like there is a ball behind her shoulder blade and her chest is hurting. She was advised to contact the office to find out what testing may be needed. Will page the MIXING OPERATOR Addendum [id number]: Spoke with patient. She started to notice an increase in pain in her chest and shoulder blade over the last 2 days. Patient is s/p L 1st rib resection 02/01/2025, hospital course complicated by L hemathorax requiring chest tube placement. She was discharged to home on 02/10/2025. She was working with PT and noticed the pain behind her shoulder blade. Her PT was concerned about her pain and felt she should get it checked out. She also states her 2 yr old daughter step on the left side of her chest and her pain has worsened over the last 24 hrs. She is currently seeking care at a [facility] urgent care. She had blood work this morning, H/H which is improved from the time of discharge (07/03). I explained to her that my concern for bleeding is low. Due to the increased pain it is worth getting a CXR, which she is waiting to get done today. I instructed her to get rest and continue physical therapy as tolerated. I will review her CXR and reach out to her after. She knows to seek immediate medical attention if her symptoms worsen. She knows to call our office with any further questions or concerns. Maggie Lundberg APRN.DRY HOUSE WORKER documented in this encounter [facility] 02-15-2025 Note [facility] 02-15-2025 History of Present illness Narrative Subjective HPI 34-year-old female presents urgent care chief complaint chest/shoulder pain. Patient states pain has worsened over the last few days. Recently discharged from the hospital where she underwent first rib resection and left subclavian vein venotomy. Presents today with persistent discomfort. States feels like there is a knot behind her left scapular region. Has taken muscle relaxant and Percocet and acetaminophen this has not helped. Rates pain 7 out of 10. No hemoptysis. No increased shortness of breath. Past medical history prescription medications allergies reviewed. 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) Family history of defect 08/26/2021 08/26/2021. Patient son born with a cyst on the brain. It was surgically removed when he was 8 years old. 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 levothyroxine (SYNTHROID) 88 mcg tablet Take 1 tablet by mouth daily at 6 am. acetaminophen (TYLENOL) 500 mg tablet Take 2 tablets by mouth every 6 hours. docusate sodium (COLACE) 100 mg capsule Take 1 capsule by mouth two times a day. methocarbamol (ROBAXIN) 750 mg tablet Take 1 tablet by mouth three times a day. ibuprofen (MOTRIN) 400 mg tablet Take 1-2 tablets by mouth every 8 hours as needed for pain. potassium chloride 20 mEq TbER Take 1 tablet by mouth once daily. FAMILY HISTORY Problem Relation Age of Onset Psychiatry Mother BIPOLAR Thyroid Mother Stroke Father Alcohol abuse Father No Known Problems Sister No Known Problems Sister No Known Problems Sister No Known Problems Brother Arthritis Maternal Grandmother Heart Maternal Grandmother Osteoporosis Maternal Grandmother Stroke Maternal Grandmother other (Hypotension) Maternal Grandmother Heart Maternal Grandfather Hypertension Maternal Grandfather Alcohol/Drug Maternal Grandfather Psychiatry Maternal Grandfather BIPOLAR No Known Problems Paternal Grandmother No Known Problems Paternal Grandfather No Known Problems Daughter No Known Problems Daughter other (cyst on brain) Son No Known Problems Son No Ocular Disease No Family History Malig Hyperthermia No Family History Social History Tobacco Use Smoking status: Never Smokeless tobacco: Never Tobacco comments: No smoking in family Vaping Use Vaping status: Never Used Substance Use Topics Alcohol use: Not Currently Drug use: No BP 112/64 Pulse 104 Temp 37.1 C (98.8 F) Resp 16 Wt 54 kg (119 lb 0.8 oz) LMP 12/13/2024 (Approximate) SpO2 96% BMI 20.76 kg/m Review of Systems Constitutional: Negative for chills, fever and malaise/fatigue. HENT: Negative for congestion, ear discharge, ear pain, sinus pain and sore throat. Eyes: Negative for blurred vision. Respiratory: Negative for cough, sputum production, shortness of breath and wheezing. Cardiovascular: Positive for chest pain. Gastrointestinal: Negative for abdominal pain. Musculoskeletal: Negative for myalgias. Neurological: Negative for headaches. Objective Physical Exam Constitutional: General: She is not in acute distress. Appearance: She is not toxic-appearing. HENT: Head: Normocephalic. Nose: Nose normal. Eyes: Pupils: Pupils are equal, round, and reactive to light. Cardiovascular: Rate and Rhythm: Normal rate. Pulmonary: Effort: Pulmonary effort is normal. No respiratory distress. Musculoskeletal: Cervical back: Normal range of motion. Comments: Healing surgical wounds noted. No decreased breath sounds. Moderate tenderness with palpation to the chest area. No crepitus. Skin: General: Skin is warm and dry. Neurological: General: No focal deficit present. Mental Status: She is alert. ASSESSMENT/PLAN: 1. Chest pain, unspecified type - ICD9: 786.50, ICD10: R07.9 - XR CHEST 2V FRONTAL/LAT Wounds appear to be healing well. Lung sounds equal. I did instruct patient to reach out to surgeons office to discuss symptoms with them to determine if need to be seen in office or ED today. Will obtain a chest x-ray. Patient verbalized understanding agrees with plan of care Ravinder Duncan APRN.DIRECTOR OF PUBLICATIONS documented in this encounter [facility] 02-14-2025 History of Present illness Narrative Program_ID:[id number] Access Code: [email or web address] URL: [email or web address] Date: 02-14-2025 Prepared By: Estefania Benavides Program Notes Exercises - Standing Cervical Rotation AROM with Overpressure - 1 x daily - 7 x weekly - 4 sets - 5 reps - Seated Cervical Retraction and Extension - 1 x daily - 7 x weekly - 4 sets - 5 reps - Seated Cervical Sidebending AROM - 1 x daily - 7 x weekly - 4 sets - 5 reps - Seated Shoulder Flexion AAROM with Jigna Behind - 1 x daily - 7 x weekly - 4 sets - 10 reps - Corner Pec Minor Stretch - 1 x daily - 7 x weekly - 4 sets - reps Images from the original note were not included. Episode Visit Count: 1 Therapist That Will Accept/Oversee The Plan Of Care: Chang Diggs PT Start of Care Date: 02/14/25 Onset Date: 10/05/24 Plan of Care Certification Date: 02/14/25 Next Certification Due Date: 05/09/25 Patient Identified by Name and Date of : Yes REHABILITATION AND SPORTS THERAPY PHYSICAL THERAPY EVALUATION PLAN OF CARE: Assessment: Matt Baum presents with diagnosis of S/P 1st rib resection on the L side that interferes with lifting, reaching behind back, reaching overhead, cleaning, dressing . The patient presents with impairments in ADL's, flexibility, independence in exercise, overall function, range of motion, and strength. PROMIS (Patient-Reported Outcomes Measurement Information System) scores were reviewed and identified as a rehabilitation concern. Prognosis for therapy is Good due to: current objective clinical presentation . The patient will benefit from skilled therapy services to meet the goals established for this plan of care as noted below. Goals for Episode of Care: established 02/14/25 Independent in a Home Exercise Program. Patient will decrease pain rating by 2 points to meet minimal clinical important difference for numeric pain rating scale. Restore pain free cervical ROM to WNL to allow for ease of driving and scanning the environment. Drive with no aggravation of pain/symptoms. Pt will demo LUE strength of 5/5 for ease of lifting up her children Pt will demo L shoulder elevation to WNL for ease of reaching up into high cabinets and ease of getting dressed. Patient Goals: Return to PLOF Time Frame for Goals and Treatment : 05/09/25 Planned Interventions, Frequency, and Duration: Current Frequency: 1x/week Duration: 4 weeks Total Number of Visits Planned: 4 Planned Treatment Interventions: Therapeutic exercise (68261), Neuromuscular re-education (19932), Manual therapy (26235), Therapeutic activities (44024), Self-fdc management (28590), Gait Training (94659) PLAN FOR NEXT VISIT: stretch the scalenes, platysma, and work on L shoulder AAROM/AROM Patient demonstrates good understanding of plan of care and treatment. The above goals and plan of care were discussed and agreed upon by patient/family. SUBJECTIVE: Pt had a TOS surgery where she had all of the rib resected. Sleeping decent. Had a hemathorax. Pt is not allowed to lift for than 4 pounds for 4 weeks. Patient Goals: Return to PLOF Functional Limitations: lifting, reaching behind back, reaching overhead, cleaning, dressing Prior Level of Function: Independent without limitations Intake Information: Prescription present Previous Treatment: Surgery , Physical Therapy Pain: Pain Pain Level: 6 (with the pain meds. 8/10 pain on the L.) Pain Location: Neck - Left Description: Sharp PROMIS Scales 02/14/2025 Higher is Better Phys Func - T Score 30 (moderate dysfunction) Phys Func - Percentile 2 Self-Eff Symptom - T Score 40 (Average) Self-Eff Symptom - Percentile 16 T-scores: mean of general population = 50. 5 points is clinically meaningfully difference Percentiles provide an indication of how the patient's score ranks in relation to the general population. Higher percentile rankings indicate better function/quality of life. 50th percentile is the average of the general population and indicates half of respondents had a worse score. OBJECTIVE MEASURES WITH LEVEL OF FUNCTION: Posture / Alignment Posture: Forward head Spine Observations L Cervical Spine Palpation Tenderness: (Platysma) Cervical Spine ROM Cervical ROM : Measurement AROM Cervical Flexion AROM (degrees) : 60 Degrees Cervical Extension AROM (degrees) : 25 Degrees Cervical Side-Bend Right AROM (degrees): (Major limitation) Cervical Side-Bend Left AROM (degrees) : (Minimal limitation) Cervical Rotation Right AROM (degrees) : 60 Degrees Cervical Rotation Left AROM (degrees) : 88 Degrees UE AROM L Shoulder Flex: 136 Degrees UE and Cervical Strength L UE Strength: Not tested due to post-op status Education: Education Learning Preferences: Demonstration, Explanation, Performance, Printed Materials Barriers: None Learning/educational needs: Home exercise program, Plan of Care, Changes in Plan of Care Education Provided: Yes, see treatment interventions for education provided Education Provided To: Patient Education Mode/Type: Demonstration, Explanation/Discussion, Literature/Printed Materials, Performance Response to Education/Teach Back: States/Identifies, Return Demonstration TREATMENT: PT Treatment Interventions: Therapeutic Exercise Evaluation Therapeutic Exercise: 1: Discussed exam findings, purpose of the HEP and the HEP handout was provided to the pt. HEP discussed in detail with how to safely and properly perform each therapeutic exercise. 2: Seated R cervical rotation stretch x 5 reps x 10 sec holds 3: Seated L calene stretch x 5 holding x 10 sec 4: Seated Cervical extension (platysma stretch) x 5 x 10 sec holds 5: Seated R shoulder flexion AAROM using pulleys x 20 6: Standing pec stretch at corner x 30 sec Skilled Intervention: Patient was educated in proper exercise technique and purpose for exercises. Provided written instruction for home exercise program to facilitate proper performance and compliance. Correct performance of therapeutic exercises was facilitated with verbal and visual cuing. Billing * Evaluation Low Complexity: 1 Unit Therapeutic Exercise Treatment Minutes: 24 Total Session Time (minutes): 43 Session Start Time : 1629 Session Stop Time : 1711 Chang Diggs PT documented in this encounter [facility] 02-14-2025 Note [facility] 02-14-2025 Telephone encounter Note SOCIAL WORK FOLLOW UP NOTE: [facility] Date of service: February 14, 2025 Mattlucia Baum is being seen for a follow up social work visit. Today's visit includes: patient SW called and spoke to pt this date to inform her that Lovenox has been received from her patient assistance program. Pt reports she has been told to hold Lovenox at minimum 1 month following a recent surgery. Pt reports she is not sure if she will need the medication at all in the future but will wait for post-surgery follow up towards the end march and will inform SW if meds are needed. Meds will be held until pt confirms need or not. No other needs identified at this time. RON Montero [facility] 02-14-2025 Miscellaneous Notes SOCIAL WORK FOLLOW UP NOTE: [facility] Date of service: February 14, 2025 Matt Baum is being seen for a follow up social work visit. Today's visit includes: patient SW called and spoke to pt this date to inform her that Lovenox has been received from her patient assistance program. Pt reports she has been told to hold Lovenox at minimum 1 month following a recent surgery. Pt reports she is not sure if she will need the medication at all in the future but will wait for post-surgery follow up towards the end of March and will inform SW if meds are needed. Meds will be held until pt confirms need or not. No other needs identified at this time. RON Montero documented in this encounter [facility] 02-10-2025 Note [facility] 02-10-2025 Telephone encounter Note ----- Message from Ann Dickinson PA-C sent at 02/09/2025 4:19 PM EDT ----- Ok, I will let them monitor while you are there. I hope you are doing ok! Ann ----- Message ----- From: Sheron Samayoa LPN Sent: 02/09/2025 1:41 PM EDT To: Ann Dickinson PA-C [facility] 02-10-2025 Miscellaneous Notes ----- Message from Ann Dickinson PA-C sent at 02/09/2025 4:19 PM EDT ----- Ok, I will let them monitor while you are there. I hope you are doing ok! Ann ----- Message ----- From: Sheron Samayoa LPN Sent: 02/09/2025 1:41 PM EDT To: Ann Dickinson PA-C documented in this encounter [facility] 02-09-2025 Telephone encounter Note opened in error [facility] 02-09-2025 Miscellaneous Notes opened in error documented in this encounter [facility] 02-09-2025 Note [facility] 02-08-2025 Note [facility] 02-08-2025 Note [facility] 02-07-2025 Note [facility] 02-07-2025 Note [facility] 02-06-2025 Note [facility] 02-06-2025 Note [facility] 02-06-2025 Note [facility] 02-06-2025 Note [facility] 02-06-2025 Note [facility] 02-05-2025 Note [facility] 02-05-2025 Note [facility] 02-05-2025 Note [facility] 02-05-2025 Note [facility] 02-04-2025 Note [facility] 02-04-2025 Note [facility] 02-03-2025 Note [facility] 02-03-2025 Note [facility] 02-02-2025 Note [facility] 02-02-2025 Note [facility] 02-01-2025 Note [facility] 01-31-2025 Telephone encounter Note Called and gave patient the following arrival instructions: 11:40 am arrival to J-2 NPO after midnight Continue following all medication guidelines Be sure to bring a ride due to sedation Patient verbalized understanding [facility] 01-31-2025 Miscellaneous Notes Called and gave patient the following arrival instructions: 11:40 am arrival to J1-2 NPO after midnight Continue following all medication guidelines Be sure to bring a ride due to sedation Patient verbalized understanding documented in this encounter [facility] 01-31-2025 Note [facility] 01-31-2025 History of Present illness Narrative Diagnosis: 1) Unprovoked PE. HPI: The patient is a 33-year-old female who had an unremarkable past medical history. 05/09/2019 was working outside when noticed extreme fatigue. Was prone to low K, so thought it might be that. When went to bed that evening had 'weird' sensation in left leg--burning. Also felt uneasy in the abdomen like was going to have diarrhea. Went to BR but no need for BM, but was very nauseated suddenly. Had visual dimming and burning sensation between shoulder blades. Was taken to ED morning of 05/10. CT of the chest on 05/10/2019 demonstrated focal pulmonary embolism in a subsegmental branch in the right upper lobe. It was nonocclusive. A venous duplex ultrasound on 05/10 demonstrated no evidence of left lower extremity DVT. There was a Jovel's cyst appreciated in the left popliteal fossa. Patient was discharged on Lovenox with instructions to transition to Coumadin. Presented back to the ED the next day with complaint of headache. CT of the brain showed normal unenhanced CT of the brain. Patient was given Reglan and Benadryl with improvement of the headache. She was discharged after improvement. Patient was seen again in the ER on 05/13 for complaints of nausea and not feeling well. No specific diagnosis. She was noted that she had a vasovagal episode after injecting herself Lovenox at morning. Was still on initial course of Lovenox when fist seen here. Coumadin dosing from 3 mg to 6 mg to 9 mg daily. INR 1.3. Coumadin had been making her nauseated. No family h/o VTE. Maternal GM had strokes. No use of OCPs. Was in the ED on 06/13/2019 with complaints of right lower extremity pain. Ultrasound was negative for DVT. She had remained on Eliquis. Was back in the ED on 08/22/2019 with complaints of shortness of breath. Workup included vitals, lab work consideration of CT but that was not done due to the fact that she was more comfortable in the ER and her vitals were normal. Was in the ED at [place] for complaint left arm tingling and heaviness. She presented because of her history of hyperkalemia in symptoms that had manifested similarly previously. Potassium was 4.1 mmol/L. Seen here last for [place]. Delivered a healthy baby girl. She has continued to breast-feed so has remained on Lovenox. No unusual bleeding or unexplained bruising. No leg pain or swelling. No episodes of dyspnea or chest pain. Presents for ongoing hematologic management. OV 06/2024: Stopped AC 01/2024. Was spotting at gymnastics when she felt a pop near her left elbow and developed a lump. It receded after a day or 2 but then returned and she had pain up the arm. Went to the ED at [place]. US--acute appearing thrombus extending from left internal jugular vein through subclavian and axillary veins Resume Lovenox at 60 mg q 12 hours since was still breast feeding. Pain fluctuates, but no swelling. A week ago Thursday, developed lump anterior medial upper right thigh. Does not necessarily recall a specific injury but may have bumped the washing machine door. Lump has gotten larger and warmer and recently developed ecchymosis surrounding it. No other bleeding issues. Presents for ongoing hematologic management. Interim history: Was diagnosed with thoracic outlet syndrome. Scheduled for surgery tomorrow. Has continued on Lovenox. When last here low molecular weight heparin assay demonstrated therapeutic range. Has bruise left arm. No unusual bleeding. PMH, medications and allergies personally reviewed by me today. Any changes documented in appropriate section. ROS: Constitutional: Denies episodes of fever and night sweats. Neuro: Denies MAR, vertigo, dizziness and imbalance. HEENT: No recent change in voice or hearing. Resp: Denies cough, wheeze and hemoptysis. CVS: Denies exertional chest pain, PND, orthopnea and LE edema. GI: Denies dysgeusia. Denies symptoms of stomatitis. Denies dysphagia and odynophagia. Denies reflux, n/v, change in bowel habits and abdominal pain. : Denies dysuria or gross hematuria. No symptoms of bladder outlet obstruction. Endo: Denies hot flashes. Denies polyuria and polydipsia. Denies heat and cold intolerance. Musculoskeletal: Denies bone, back, joint and muscular pain. Derm: Denies rash. Denies jaundice and diffuse pruritis. Heme: See above. Psych: Normal mood. PHYSICAL EXAM: Vitals: Blood pressure 103/68, pulse 111, temperature 36.8 C (98.3 F), temperature source Temporal, weight 53.1 kg (117 lb), last menstrual period 12/13/2024, SpO2 99%. Well-appearing and in no acute distress. EYES: Sclerae are anicteric bilaterally. ABDOMEN: The abdomen is nondistended. Extremities: No swelling left arm. SKIN: Bruise left arm. ASSESSMENT/PLAN: (I82.722) Chronic deep vein thrombosis (DVT) of other vein of left upper extremity (HCC) History of PE. Assessment: -History of PE which may have been provoked. -Heterozygous prothrombin gene mutation. -Developed left upper extremity DVT when off 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. -Now back on Lovenox after potential breakthrough thrombus on apixaban. -No longer breast-feeding. -Scheduled for TOS surgery tomrrow. Plan: -OV in about 2 months. -Plan to rotate back to apixaban at that time. Portions of this documentation were copied and pasted from my previous office visit note dated 10/31/2024 in order to provide a cohesive continuity of the history. The note has been reviewed and edited and updated as necessary. I spent a total of 20 minutes on the date of the service which included preparing to see the patient, [id number] patient care, completing clinical documentation, obtaining and/or reviewing separately obtained history, counseling and educating the patient/family/caregiver, communicating with other HCPs (not separately reported), and communicating results to the patient/family/caregiver. Maria M Quarles DO documented in this encounter [facility] 01-31-2025 Telephone encounter Note Spoke with patient. Described localized bruise. Compliant with blood thinners. States, arm is heavy. Denies arm pain or edema. Advised to continue with blood thinners and stick to plan. Will discuss with Dr. Guajardo and update with any issues. ARIEL Ragsdale [facility] 01-31-2025 Miscellaneous Notes Spoke with patient. Described localized bruise. Compliant with blood thinners. States, arm is heavy. Denies arm pain or edema. Advised to continue with blood thinners and stick to plan. Will discuss with Dr. Guajardo and update with any issues. ARIEL Ragsdale documented in this encounter [facility] 01-27-2025 Note [facility] 01-27-2025 Note [facility] 01-09-2025 Telephone encounter Note Mrs. Baum called stating she has some questions about post op recovery. She is jut trying to having everything in order for her kids. 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 Baum called stating she has some questions about post op recovery. She is jut trying to having everything in order for her kids. Estefania River [employer] Head Saw Operator documented in this encounter [facility] 12-29-2024 Telephone encounter Note Mrs. Baum called to confirm her surgery date. She called with concerns about the date because it is no longer showing up for her in myChart. She would like a call back @[phone]. [facility] Work Phone: 12-29-2024 Miscellaneous Notes Mrs. Baum called to confirm her surgery date. She called with concerns about the date because it is no longer showing up for her in myChart. She would like a call back @[phone]. documented in this encounter [facility] 12-01-2024 Note [facility] 12-01-2024 History of Present illness Narrative Nicole is a 33 year old who presents for an annual gynecologic exam. Menses: cycles every 30 days and 4 days of flow Contraception: Vasectomy HPV vaccine: No HPV:negative 2018 Last pap smear: 2019 negative History of abnormal pap: No OB History Gravida6 Para5 Term5 Preterm0 AB1 Living5 SAB1 IAB0 Ectopic0 Multiple0 Live Births5 Line Maintainer History LMP: 11/25/2024 (Exact Date), Having periods Age at Menarche: Age at First : Age at Menopause: Line Maintainer History Comments: Sexual Activity: Yes; Male Contraception: Vasectomy PAST MEDICAL HISTORY Diagnosis Date Acquired hypothyroidism 10/21/2017 Anemia during in first trimester 10/16/2021 Jovel's cyst, left 05/10/2019 Biliary dyskinesia 12/08/2019 Factor II deficiency (HCC) Family history of defect 08/26/2021 08/26/2021. Patient son born with a cyst on the brain. It was surgically removed when he was 6 years old. 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 PE (pulmonary thromboembolism) (HCC) 05/10/2019 05/10/2019 Situational stress 01/31/2020 Thoracic outlet syndrome 10/25/2024 Vocal cord dysfunction Paradoxical VOCAL CORD DYSFUNCTION PAST SURGICAL HISTORY Procedure Laterality Date APPENDECTOMY TONSILLECTOMY & ADENOIDECTOMY <AGE 12 1994 FAMILY HISTORY Problem Relation Age of Onset Psychiatry Mother BIPOLAR Thyroid Mother Stroke Father Alcohol abuse Father No Known Problems Sister No Known Problems Sister No Known Problems Sister No Known Problems Brother Arthritis Maternal Grandmother Heart Maternal Grandmother Osteoporosis Maternal Grandmother Stroke Maternal Grandmother other (Hypotension) Maternal Grandmother Heart Maternal Grandfather Hypertension Maternal Grandfather Alcohol/Drug Maternal Grandfather Psychiatry Maternal Grandfather BIPOLAR No Known Problems Paternal Grandmother No Known Problems Paternal Grandfather No Known Problems Daughter No Known Problems Daughter other (cyst on brain) Son No Known Problems Son No Ocular Disease No Family History Malig Hyperthermia No Family History SOCIAL HISTORY Social History Tobacco Use Smoking status: Never Smokeless tobacco: Never Tobacco comments: No smoking in family Vaping Use Vaping status: Never Used Substance Use Topics Alcohol use: Not Currently Drug use: No REVIEW OF SYSTEMS Abdomen: No abdominal pain, nausea, vomiting, diarrhea, or constipation. No bloating, early satiety, indigestion, or increased flatulence. Bladder: No dysuria, gross hematuria, urinary frequency, urinary urgency, or incontinence. Breast: No breast lumps, nipple d/c, overlying skin changes, redness or skin retraction. Allergies and current medication updated:Yes SENSITIVE EXAM: The sensitive examination was discussed with the Patient or Patient's Authorized [employer] Panels. As applicable, any other physician, advance practice provider, medical student, or other health professional student that will be observing or involved in the sensitive examination for educational or training purposes was discussed with the Patient or Authorized [employer] Panels. The Patient or Authorized [employer] Panels has agreed to proceed with the sensitive examination. (Sensitive examination includes inspection and/or palpation of the breasts, pelvis, prostate and anorectal regions). EXAM: BP 110/78 Ht 5' 3.5 (1.61m) Wt 119 lb (54.0kg) LMP 11/25/2024 BMI 20.75 kg/(m^2). GENERAL: pleasant, female in no apparent distress BREAST: soft, non-tender, symmetric, no dominant mass, normal nipple-areolar complex, no lymphadenopathy, and no nipple discharge CHEST: Normal inspiratory effort ABDOMEN: soft, non-tender, and no masses PELVIC: external genitalia normal, normal Bartholin's glands, urethra, Geiger's glands, no vulvar lesions, no cervical lesions, good vaginal support, physiologic discharge present, normal appearing perineal body and perianal region BIMANUAL: uterus normal size, shape and consistency, no adnexal masses, and non-tender RECTOVAGINAL: deferred. NEURO: alert and oriented x3,exam grossly non-focal EXTREMITIES: normal ASSESSMENT/PLAN: 1) Health maintenance: Pap done with HPV. Mammogram starting age 40. Nutrition, exercise and routine health maintenance exams reviewed. 2) Contraception: vasectomy. Contraceptive options reviewed and information provided. 3) Follow up one year or sooner as needed Jonny Terrazas MD documented in this encounter [facility] 12-01-2024 Telephone encounter Note SOCIAL WORK FOLLOW UP NOTE: [facility] Date of service: December 01, 2024 2nd call to pt to inform her Lovenox has arrive for pick-up. Pt reports she will be in this afternoon. RON Montero [facility] 12-01-2024 Miscellaneous Notes SOCIAL WORK FOLLOW UP NOTE: [facility] Date of service: December 01, 2024 2nd call to pt to inform her Lovenox has arrive for pick-up. Pt reports she will be in this afternoon. VINNY Montero-Rox documented in this encounter [facility] 11-30-2024 Note HNO ID: [id number] Author: ANN DICKINSON PA-C Service: ? Author Type: Physician Log Chain Feeder Type: Progress Notes Filed: 02/06/2025 10:20 Note Text: [facility] [place] [address] [facility] [address] Date of Evaluation: 11/30/2024 Patient Name: Matt Baum : 1990 Chief Complaint: Patient presents with: ER F/U: [facility] Main. 11/26/24. New Patient Subjective HPI Ms. Baum is a 33 year old female who presents to establish care. She has a PMH of thoracic outlet syndrome, factor II deficiency, hypothyroidism, PE on Lovenox. Was just in the ED on 11/25 for On Eliquis since 2018. Was put on Lovenox in 2020 when with daughter. From January 2024-May 2024 on no blood thinners. On Lovenox from May - Jun 2024 and switched to eliquis in Jun. In Sep developed clot in left arm on Eliquis. Is having surgery February 01, maybe sooner. Dr. Guajardo. After that will be on Eliquis. TSH 13.2. Levothyroxine 88mcg has been her dose since September. When she was on [id number] dropped to 0.95. Review of Systems Constitutional: Negative for chills, fatigue and fever. Respiratory: Negative for cough and shortness of breath. Cardiovascular: Negative for chest pain and palpitations. Gastrointestinal: Negative for diarrhea, nausea and vomiting. Musculoskeletal: Negative for back pain and myalgias. Skin: Negative for rash. Neurological: Negative for dizziness, weakness and headaches. Psychiatric/Behavioral: Negative for sleep disturbance. 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 Patient son born with a cyst on the brain. It was surgically removed when he was 6 years old. 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 PE (pulmonary thromboembolism) (HCC) 05/10/2019 05/10/2019 Situational stress 01/31/2020 Thoracic outlet syndrome 10/25/2024 Vocal cord dysfunction Paradoxical VOCAL CORD DYSFUNCTION PAST SURGICAL HISTORY Procedure Laterality Date APPENDECTOMY TONSILLECTOMY AND ADENOIDECTOMY FAMILY HISTORY Problem Relation Age of Onset Psychiatry Mother BIPOLAR Thyroid Mother Stroke Father Alcohol abuse Father No Known Problems Sister No Known Problems Sister No Known Problems Sister No Known Problems Brother Arthritis Maternal Grandmother Heart Maternal Grandmother Osteoporosis Maternal Grandmother Stroke Maternal Grandmother other (Hypotension) Maternal Grandmother Heart Maternal Grandfather Hypertension Maternal Grandfather Alcohol/Drug Maternal Grandfather Psychiatry Maternal Grandfather BIPOLAR No Known Problems Paternal Grandmother No Known Problems Paternal Grandfather No Known Problems Daughter No Known Problems Daughter other (cyst on brain) Son No Known Problems Son No Ocular Disease No Family History Malig Hyperthermia No Family History Social History Tobacco Use Smoking status: Never Smokeless tobacco: Never Tobacco comments: No smoking in family Vaping Use Vaping status: Never Used Substance Use Topics Alcohol use: Not Currently Drug use: No Current Outpatient Medications Medication Sig acetaminophen (TYLENOL EXTRA STRENGTH) 500 mg tablet Take 500 mg by mouth every 8 hours as needed. enoxaparin (LOVENOX) 60 mg/0.6 mL syrg Inject 0.55 mL subcutaneously two times a day. Inject entire contents of one(1) syringe levothyroxine (LEVOXYL) 88 mcg tablet Take 1 tablet by mouth once daily. Take on empty stomach. For Thyroid potassium chloride 20 mEq TbER Take 1 tablet by mouth once daily. No current facility-administered medications for this visit. I have confirmed and edited as necessary the chief complaint, medications, past medical, family and social histories obtained by others. Objective Ht 5' 3.5 (1.61m) Wt 121 lb (54.9kg) LMP 10/28/2024 BMI 21.10 kg/(m2). Physical Exam Vitals and nursing note reviewed. Constitutional: Appearance: Normal appearance. HENT: Head: Normocephalic and atraumatic. Eyes: Pupils: Pupils are equal, round, and reactive to light. Cardiovascular: Rate and Rhythm: Normal rate and regular rhythm. Pulses: Normal pulses. Heart sounds: Normal heart sounds. No murmur heard. Pulmonary: Effort: Pulmonary effort is normal. Breath sounds: Normal breath sounds. Musculoskeletal: Right lower leg: No edema. Left lower leg: No edema. Neurological: General: No focal deficit present. Mental Status: She is alert and oriented to person, place, and time. Data Reviewed (more content not included)... [facility] 11-30-2024 History of Present illness Narrative Images from the original note were not included. [facility] [place] [address] [facility] [address] Date of Evaluation: 11/30/2024 Patient Name: Matt Baum : 1990 Chief Complaint: Patient presents with: ER F/U: [facility]. 11/26/24. New Patient Subjective HPI Ms. Baum is a 33 year old female who presents to [facility]. She has a PMH of thoracic outlet syndrome, factor II deficiency, hypothyroidism, PE on Lovenox. Was just in the ED on 11/25 for On Eliquis since 2018. Was put on Lovenox in 2020 when with daughter. From January 2024-May 2024 on no blood thinners. On Lovenox from May - Jun 2024 and switched to eliquis in Jun. In Sep developed clot in left arm on Eliquis. Is having surgery February 01, maybe sooner. Dr. Guajardo. After that will be on Eliquis. TSH 13.2. Levothyroxine 88mcg has been her dose since September. When she was on [id number] dropped to 0.95. Review of Systems Constitutional: Negative for chills, fatigue and fever. Respiratory: Negative for cough and shortness of breath. Cardiovascular: Negative for chest pain and palpitations. Gastrointestinal: Negative for diarrhea, nausea and vomiting. Musculoskeletal: Negative for back pain and myalgias. Skin: Negative for rash. Neurological: Negative for dizziness, weakness and headaches. Psychiatric/Behavioral: Negative for sleep disturbance. 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 Patient son born with a cyst on the brain. It was surgically removed when he was 6 years old. 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 PE (pulmonary thromboembolism) (HCC) 05/10/2019 05/10/2019 Situational stress 01/31/2020 Thoracic outlet syndrome 10/25/2024 Vocal cord dysfunction Paradoxical VOCAL CORD DYSFUNCTION PAST SURGICAL HISTORY Procedure Laterality Date APPENDECTOMY TONSILLECTOMY & ADENOIDECTOMY <AGE 12 1994 FAMILY HISTORY Problem Relation Age of Onset Psychiatry Mother BIPOLAR Thyroid Mother Stroke Father Alcohol abuse Father No Known Problems Sister No Known Problems Sister No Known Problems Sister No Known Problems Brother Arthritis Maternal Grandmother Heart Maternal Grandmother Osteoporosis Maternal Grandmother Stroke Maternal Grandmother other (Hypotension) Maternal Grandmother Heart Maternal Grandfather Hypertension Maternal Grandfather Alcohol/Drug Maternal Grandfather Psychiatry Maternal Grandfather BIPOLAR No Known Problems Paternal Grandmother No Known Problems Paternal Grandfather No Known Problems Daughter No Known Problems Daughter other (cyst on brain) Son No Known Problems Son No Ocular Disease No Family History Malig Hyperthermia No Family History Social History Tobacco Use Smoking status: Never Smokeless tobacco: Never Tobacco comments: No smoking in family Vaping Use Vaping status: Never Used Substance Use Topics Alcohol use: Not Currently Drug use: No Current Outpatient Medications Medication Sig acetaminophen (TYLENOL EXTRA STRENGTH) 500 mg tablet Take 500 mg by mouth every 8 hours as needed. enoxaparin (LOVENOX) 60 mg/0.6 mL syrg Inject 0.55 mL subcutaneously two times a day. Inject entire contents of one(1) syringe levothyroxine (LEVOXYL) 88 mcg tablet Take 1 tablet by mouth once daily. Take on empty stomach. For Thyroid potassium chloride 20 mEq TbER Take 1 tablet by mouth once daily. No current facility-administered medications for this visit. I have confirmed and edited as necessary the chief complaint, medications, past medical, family and social histories obtained by others. Objective Ht 5' 3.5 (1.61m) Wt 121 lb (54.9kg) LMP 10/28/2024 BMI 21.10 kg/(m^2). Physical Exam Vitals and nursing note reviewed. Constitutional: Appearance: Normal appearance. HENT: Head: Normocephalic and atraumatic. Eyes: Pupils: Pupils are equal, round, and reactive to light. Cardiovascular: Rate and Rhythm: Normal rate and regular rhythm. Pulses: Normal pulses. Heart sounds: Normal heart sounds. No murmur heard. Pulmonary: Effort: Pulmonary effort is normal. Breath sounds: Normal breath sounds. Musculoskeletal: Right lower leg: No edema. Left lower leg: No edema. Neurological: General: No focal deficit present. Mental Status: She is alert and oriented to person, place, and time. Data Reviewed: Most recent labs and imaging results. ASSESSMENT/PLAN: 1. Acquired hypothyroidism - ICD9: 244.9, ICD10: E03.9 (primary diagnosis) - check TSH, free T4, and Free T3 today - LEVOTHYROXINE 100 MCG TABLET - THYROID STIMULATING HORMONE - T4 FREE/FREE THYROXINE - T3, FREE 2. TOS (thoracic outlet syndrome) - ICD9: 353.0, ICD10: G54.0 Surgery scheduled 3. Chronic deep vein thrombosis (DVT) of other vein of left upper extremity (HCC) - ICD9: 453.72, ICD10: I82.722 4. Situational stress - ICD9: V62.89, ICD10: F43.9 5. 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 History of pulmonary embolus (PE) - ICD9: V12.55, ICD10: Z86.711 7. Factor II deficiency (HCC) - ICD9: 286.3, ICD10: D68.2 Ann Dickinson PA-C No follow-ups on file. Discussed the above with the patient using shared decision making. The patient is in agreement with the diagnostic and treatment plans. documented in this encounter [facility] 11-26-2024 Note [facility] 11-25-2024 Telephone encounter Note Documentation of conversation about pt's concern started in 11/21/24 phone encounter, creating a separate encounter at this time since it is no longer related to scheduling an appt or surgery. Pt asked about an observation she noticed at least 1 month ago, as described in office visit note from Dr Guajardo on 10/25/24 She describes a rib protrusion on one side and possible compression on the other. She reports tenderness above and below the clavicle on the left side. She stated that it has not changed/worsened since she first noticed it. She asked this RN if this could be contributing to her symptoms. Informed her that it could be a contributing factor, but it is not a physical exam finding that is associated with TOS. Pt expressed concern that she could have TOS surgery (first rib resection) and not experience relief if her symptoms are related to this other issue. Informed her that we would schedule her for surgery on 02/01 as discussed, but that in the meantime she could discuss with her PCP to see if they felt any further assessment of this issue was warranted. Pt agreeable to this. Pt called back later stating that she was initially told that she could be seen on Thursday at her PCP's office, but then received a call back advising her to go to the emergency room. I expressed confusion as to why patient was being directed to the ED for a non-acute concern. Found in pt's chart a new phone encounter which included the name of the contact she spoke with at her PCP's office (Matt Nash, RN). Informed pt that I would reach out to see if maybe there was a misunderstanding as to why we were recommending she see her PCP. Pt stated appreciation for the effort. Sent a message to the above RN asking if she had time to discuss this patient's care. Tried to clarify that it was not an acute issue. She stated that the PCP said it was not appropriate and that she cannot schedule the patient if the provider says no. She informed me that I would need to speak with the provider. She stated that the patient said the one side of her body collapsing in and the other side protruding out. To clarify the complaint, I responded by explaining that my understanding of what patient was trying to describe was that her left rib/side were more concave, and the right were more convex and that she noticed at least a month ago. RN stated that pt had not been seen by their practice since June and this is a new finding, and again directed me to speak with the provider, Dr Babb, or to contact her nurse train operations manager. Informed Dr Guajardo of the above exchange. He stated agreement with my assessment of the situation, but said that If they don't feel they can manage it they need to send [her] to ED. Called pt to provide her with an update. Informed her of Dr Guajardo's recommendation to go to the ED if her PCP does not feel this is something they could manage. Pt expressed frustration. She stated she does not want to be seen as non-compliant if she does not go to the ED, but is also concerned that the staff in the ED is going to look at [her] like [she's] crazy. Provided emotional support. She asked if there was a specific ED that she should go to. Discussed her previous experiences. She stated that there have been times she has been told to go to [place] because that is where her team is. Informed her that any ED should be able to assess if this concern is acute or can be followed up by her PCP, but to avoid recommendation of being seen in [place] that she could come to [facility] ED. Pt expressed exasperation with her situation, but understanding of all discussed. Vesta Chavira RN, BSN 4:58 PM November 25, 2024 [facility] Work Phone: 11-25-2024 Miscellaneous Notes Documentation of conversation about pt's concern started in 11/21/24 phone encounter, creating a separate encounter at this time since it is no longer related to scheduling an appt or surgery. Pt asked about an observation she noticed at least 1 month ago, as described in office visit note from Dr Guajardo on 10/25/24 She describes a rib protrusion on one side and possible compression on the other. She reports tenderness above and below the clavicle on the left side. She stated that it has not changed/worsened since she first noticed it. She asked this RN if this could be contributing to her symptoms. Informed her that it could be a contributing factor, but it is not a physical exam finding that is associated with TOS. Pt expressed concern that she could have TOS surgery (first rib resection) and not experience relief if her symptoms are related to this other issue. Informed her that we would schedule her for surgery on 02/01 as discussed, but that in the meantime she could discuss with her PCP to see if they felt any further assessment of this issue was warranted. Pt agreeable to this. Pt called back later stating that she was initially told that she could be seen on Thursday at her PCP's office, but then received a call back advising her to go to the emergency room. I expressed confusion as to why patient was being directed to the ED for a non-acute concern. Found in pt's chart a new phone encounter which included the name of the contact she spoke with at her PCP's office (Matt Nash, ARIEL). Informed pt that I would reach out to see if maybe there was a misunderstanding as to why we were recommending she see her PCP. Pt stated appreciation for the effort. Sent a message to the above RN asking if she had time to discuss this patient's care. Tried to clarify that it was not an acute issue. She stated that the PCP said it was not appropriate and that she cannot schedule the patient if the provider says no. She informed me that I would need to speak with the provider. She stated that the patient said the one side of her body collapsing in and the other side protruding out. To clarify the complaint, I responded by explaining that my understanding of what patient was trying to describe was that her left rib/side were more concave, and the right were more convex and that she noticed at least a month ago. RN stated that pt had not been seen by their practice since June and this is a new finding, and again directed me to speak with the provider, Dr Babb, or to contact her nurse train operations manager. Informed Dr Guajardo of the above exchange. He stated agreement with my assessment of the situation, but said that If they don't feel they can manage it they need to send [her] to ED. Called pt to provide her with an update. Informed her of Dr Guajardo's recommendation to go to the ED if her PCP does not feel this is something they could manage. Pt expressed frustration. She stated she does not want to be seen as non-compliant if she does not go to the ED, but is also concerned that the staff in the ED is going to look at [her] like [she's] crazy. Provided emotional support. She asked if there was a specific ED that she should go to. Discussed her previous experiences. She stated that there have been times she has been told to go to [place] because that is where her team is. Informed her that any ED should be able to assess if this concern is acute or can be followed up by her PCP, but to avoid recommendation of being seen in [place] that she could come to [facility] ED. Pt expressed exasperation with her situation, but understanding of all discussed. Vesta Chavira RN, BSN 4:58 PM November 25, 2024 documented in this encounter [facility] 11-25-2024 Telephone encounter Note See Family medicine telephone note from 11/25/24. Patient contacted PCP regarding thoracic outlet syndrome and was referred back to Vascular Surgery or ED for new symptom of left side of rib cage caving and right side protruding. [facility] 11-25-2024 Miscellaneous Notes See Family medicine telephone note from 11/25/24. Patient contacted PCP regarding thoracic outlet syndrome and was referred back to Vascular Surgery or ED for new symptom of left side of rib cage caving and right side protruding. Called pt to discuss date for surgery. Pt did not answer. Left message with office number requesting call back. Pt returned call. Agreed to surgery on 02/01, but reiterated that if something comes available sooner, she would like to be considered for that. Informed her that we have this noted. Pt then asked about her left ribs being compressed vs her right side protruding, wanting to know if this was related to TOS. Additionally, she expressed concern that if it isn't, she could have the first rib resection and not get relief. Informed her that this sounds like something more than TOS, but could be a contributing factor in her symptoms. Pt plans to discuss with PCP and will let us know if anything comes from this. Informed Dr Guajardo of patient's concern about her ribs and plan to discuss with her PCP. Vesta Chavira RN, BSN 2:42 PM November 25, 2024 Patient calls in and states she was to have a follow up appointment scheduled 2-4wks post venogram. Please advise if this patient should have testing with her visit. Patient called me directly looking for the next steps/plan for surgery. Please advise. documented in this encounter [facility] 11-25-2024 Telephone encounter Note Pt called in and states she had called her Vascular provider about the left side of her body collapsing in compared to the right side of her body protruding out in the ribs. She states they told her this probably wasn't related to her Thoracic Outlet Syndrome. She states she is scheduled for Thoracic Outlet Surgery on 02/01/35, but is on their cancellation list. She said she doesn't want to have the surgery if she doesn't have to, and it's not going to help. Pt states she wanted to be with one provider, because she had been bounced between Dr Babb, Mini Crystal PA, and Leora Balderas MIXING OPERATOR. I told her they were all part of a triad and worked together. I contacted Leora Balderas MIXING OPERATOR about this Pt and she talked with Dr Babb and he said this was not appropriate for the PCP, and she needed to go to the ER. Pt was called back and notified. Pt was upset and didn't know why providers office would not see her. I told her it was out of their scope of practice and if one side of her body is protruding and the other is collapsing in they feel she needs to be seen in the ER. Pt states we always send her to the ER. Vascular Surgery nurse is now message me and I told her there is nothing I can do she would have to talk with provider as Pt has not been seen by them since June of 2024 for this. I let her know I would message my nurse train operations manager on the issue as well. Per Vesta Chavira RN, My impression is that what she is trying to say is that at least a month ago she noticed that her left side/ribs were more concave, whereas her right is more convex (perhaps longer - but it was noted in Dr Guajardo's office visit note on 10/25). She doesn't know if this is contributing the symptoms that she has been experiencing but thought it was worth a mention.. I let her know this is a new complication for this office and provider did not feel it was appropriate to be treated here. [facility] 11-25-2024 Miscellaneous Notes Pt called in and states she had called her Vascular provider about the left side of her body collapsing in compared to the right side of her body protruding out in the ribs. She states they told her this probably wasn't related to her Thoracic Outlet Syndrome. She states she is scheduled for Thoracic Outlet Surgery on 02/01/35, but is on their cancellation list. She said she doesn't want to have the surgery if she doesn't have to, and it's not going to help. Pt states she wanted to be with one provider, because she had been bounced between Dr Babb, Mini Crystal PA, and Leora Balderas MIXING OPERATOR. I told her they were all part of a triad and worked together. I contacted Leora Balderas MIXING OPERATOR about this Pt and she talked with Dr Babb and he said this was not appropriate for the PCP, and she needed to go to the ER. Pt was called back and notified. Pt was upset and didn't know why providers office would not see her. I told her it was out of their scope of practice and if one side of her body is protruding and the other is collapsing in they feel she needs to be seen in the ER. Pt states we always send her to the ER. Vascular Surgery nurse is now message me and I told her there is nothing I can do she would have to talk with provider as Pt has not been seen by them since June of 2024 for this. I let her know I would message my nurse train operations manager on the issue as well. Per Vesta Chavira RN, My impression is that what she is trying to say is that at least a month ago she noticed that her left side/ribs were more concave, whereas her right is more convex (perhaps longer - but it was noted in Dr Guajardo's office visit note on 10/25). She doesn't know if this is contributing the symptoms that she has been experiencing but thought it was worth a mention.. I let her know this is a new complication for this office and provider did not feel it was appropriate to be treated here. documented in this encounter [facility] 11-25-2024 Telephone encounter Note Called pt to discuss date for surgery. Pt did not answer. Left message with office number requesting call back. Pt returned call. Agreed to surgery on 02/01, but reiterated that if something comes available sooner, she would like to be considered for that. Informed her that we have this noted. Pt then asked about her left ribs being compressed vs her right side protruding, wanting to know if this was related to TOS. Additionally, she expressed concern that if it isn't, she could have the first rib resection and not get relief. Informed her that this sounds like something more than TOS, but could be a contributing factor in her symptoms. Pt plans to discuss with PCP and will let us know if anything comes from this. Informed Dr Guajardo of patient's concern about her ribs and plan to discuss with her PCP. Vesta Chavira RN, BSN 2:42 PM November 25, 2024 [facility] Work Phone: 11-25-2024 Telephone encounter Note Patient calls in and states she was to have a follow up appointment scheduled 2-4wks post venogram. Please advise if this patient should have testing with her visit. [facility] 11-21-2024 History of Present illness Narrative Radiology Service Progress Note PATIENT NAME: Matt Baum DATE OF SERVICE: November 21, 2024 TIME: 4:52 PM PATIENT IDENTITY VERIFICATION COMPLETED USING TWO (2) IDENTIFIERS: Name and Date of confirmed by patient verbally. FALL SCREENING: Has the patient had 2 falls in the last year or 1 fall with injury or currently using an Ambulatory Assistive Device (Walker, Cane, Wheelchair, Crutches, etc.)? No PATIENT GENDER DATA: Assigned female at . status: : No status: NO. PATIENT RELEVANT IMPLANT DATA REVIEWED: Not Applicable PATIENT PRESENTS WITH AN IMPLANTABLE OR ATTACHED SENIOR AUTOMATION ENGINEER: No RADIOLOGY DEPARTMENT: General X-ray: Exam(s) Completed: Lower Extremity X-Ray(s): Foot, Right PERIPHERAL IV DATA: Not applicable SIGNED BY: RT Lindsay(R) November 21, 2024 4:52 PM documented in this encounter [facility] 11-21-2024 Note [facility] 11-21-2024 Note [facility] 11-21-2024 History of Present illness Narrative Images from the original note were not included. Subjective The history is provided by the patient. No speech and language specialist was used. HPI Matt Baum is a 33 year old female who presents today for CC of right foot pain after an injury 2 weeks at, when she tripped running down stairs and hit toes/foot. She has noticed swelling and numbness in toes/foot She has used ice and tylenol. She has a h/o of a clotting disorder, h/o blood clots currently on lovenox BP 100/62 Pulse 82 Temp 37.2 C (98.9 F) Resp 16 Wt 54.9 kg (121 lb 0.5 oz) LMP 10/28/2024 (Approximate) SpO2 99% BMI 21.44 kg/m Social History Tobacco Use Smoking status: Never Smokeless tobacco: Never Tobacco comments: No smoking in family Vaping Use Vaping status: Never Used Substance Use Topics Alcohol use: Not Currently Drug use: No PAST MEDICAL HISTORY Diagnosis Date Acquired hypothyroidism 10/21/2017 Anemia during in first trimester 10/16/2021 Jovel's cyst, left 05/10/2019 Biliary dyskinesia 12/08/2019 Factor II deficiency (HCC) Family history of defect 08/26/2021 08/26/2021. Patient son born with a cyst on the brain. It was surgically removed when he was 8 years old. 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 Musculoskeletal: Positive for joint pain (right foot pain, toes). Negative for myalgias. Skin: Negative for itching and rash. All other systems reviewed and are negative. Objective Physical Exam Vitals and nursing note reviewed. Cardiovascular: Pulses: Dorsalis pedis pulses are 2+ on the right side and 2+ on the left side. Posterior tibial pulses are 2+ on the right side and 2+ on the left side. Comments: Cap refill brisk Pulmonary: Effort: Pulmonary effort is normal. Musculoskeletal: Right foot: Normal range of motion and normal capillary refill. Bony tenderness present. No tenderness or crepitus. Normal pulse. Left foot: Normal. Legs: Comments: Bruising noted Skin: General: Skin is warm and dry. Neurological: Mental Status: She is alert and oriented to person, place, and time. Sensory: Sensation is intact. Psychiatric: Mood and Affect: Affect normal. ASSESSMENT/PLAN: 1. Injury of right foot, initial encounter - ICD9: 959.7, ICD10: S99.921A No fracture Rest, ice tyelnol prn To r/o clot advised patient to go to ED. - XR FOOT GENERAL 3V AP/LAT/OBL RIGHT articular surfaces are preserved. IMPRESSION: Negative right foot. Interpreted by : BOB COLE MD Diagnosis and treatment plan were discussed and questions were answered to the patient's satisfaction. Pt acknowledged understanding of concepts and follow up plan. Specific signs and symptoms that would indicate the need for higher level of care were discussed in detail warranting prompt ER evaluation. Diane Mejia APRN.DIRECTOR OF PUBLICATIONS documented in this encounter [facility] 11-21-2024 Telephone encounter Note Patient called me directly looking for the next steps/plan for surgery. Please advise. [facility] 11-15-2024 History of Present illness Narrative Program_ID:[id number] Access Code: [email or web address] URL: [email or web address] Date: 11-15-2024 Prepared By: Estefania Benavides Program Notes Exercises - Gentle Levator Scapulae Stretch - 1 x daily - 7 x weekly - 1 sets - 3 reps - Seated Gentle Upper Trapezius Stretch - 1 x daily - 7 x weekly - 1 sets - 3 reps - Supine Chin Tuck - 1 x daily - 7 x weekly - 4 sets - 10 reps - Seated Scapular Retraction - 1 x daily - 7 x weekly - 2 sets - 15 reps - Seated Shoulder Shrug Circles AROM Backward - 1 x daily - 7 x weekly - 2 sets - 15 reps Episode Visit Count: 3 Therapist That Will Accept/Oversee The Plan Of Care: Estefania Benavides Start of Care Date: 11/03/24 Onset Date: 11/03/19 Plan of Care Certification Date: 11/03/24 Next Certification Due Date: 12/15/24 REHABILITATION AND SPORTS THERAPY PHYSICAL THERAPY TREATMENT NOTE ASSESSMENT: Matt Baum tolerated the session with no issues. She demonstrated improvements in L lateral neck stiffness/soreness reported after UT and levator stretching. The patient will continue to benefit from ongoing skilled physical therapy to progress toward set goals. PLAN FOR NEXT VISIT: continue HEP with indep until surgery. Return to PT if ordered by physician post-op SUBJECTIVE: Pt. will have surgery and this was discussed at her f/u appointment with physician. Functional Limitations: lifting, recreational activities (spotting for gymnastics, folding laundry) Pain: Pain Pain Level: 0 Pain Location: Arm - Left, Arm - Right Post Treatment Pain Post Treatment Pain Level: No Change Post Treatment Pain Location: Arm - Right, Arm - Left OBJECTIVE MEASURES WITH LEVEL OF FUNCTION: TREATMENT: Therapeutic Exercise: 1: UE erg 3 min reverse, 3 min fwd 1;1 throughout, subjective collected 2: *Access Code: [email or web address] URL: [email or web address] Date: 11/15/2024 Prepared by: Estefania Harris Exercises - Gentle Levator Scapulae Stretch - 1 x daily - 7 x weekly - 1 sets - 3 reps - 30 hold - Seated Gentle Upper Trapezius Stretch - 1 x daily - 7 x weekly - 1 sets - 3 reps - 30 hold - Supine Chin Tuck - 1 x daily - 7 x weekly - 4 sets - 10 reps - Seated Scapular Retraction - 1 x daily - 7 x weekly - 2 sets - 15 reps - Seated Shoulder Shrug Circles AROM Backward - 1 x daily - 7 x weekly - 2 sets - 15 reps Skilled Intervention: Patient was educated in proper exercise technique and purpose for exercises. Skilled judgment was used in selection of appropriate interventions. Provided written instruction for home exercise program to facilitate proper performance and compliance. Correct performance of therapeutic exercises was facilitated with verbal, visual, and tactile cuing. Educated patient on rationale for performing exercises in regards to decreasing fatigue , increase ease of ADL, and ROM and function . Patient education as noted. Self-Residential Management: 1: discussed stress reduction techniques 2: discussed self management of symptoms as possible until surgery Skilled Intervention: Skilled judgment in the selection of proper modification for activity of daily living/home management based on clinical presentation, deficits, and needs. Provided written instruction for activities of daily living techniques to facilitate proper performance and compliance. Reviewed patient specific diagnosis in relation to activities of daily living/home management. Activity progression based on professional judgement. Moderate verbal cues for maintaining neutral spine alignment. Reviewed and educated patient on additions/changes for home program. Provided written instruction for home program to facilitate proper performance and compliance. Billing Therapeutic Exercise Treatment Minutes: 20 Self-Care/Home Management Treatment Minutes: 5 Skilled Treatment Time Minutes (timed and untimed codes): 30 Total Session Time (minutes): 30 Session Start Time : 1408 Session Stop Time : 1438 Estefania Benavides PT documented in this encounter [facility] 11-15-2024 Note [facility] 11-11-2024 History of Present illness Narrative Images from the original note were not included. 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 Back to 2018 with escalation in May. 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 No significant arm edema or chest wall collaterals. Positive TTP over supraclavicular space and pectoralis minor space. Positive DAST. On 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. Reason for presentation today: Follow-up after she presented to the emergency department with exacerbation of her edema Last clinic visit summary: Seen as initial consult 2 weeks ago. Plan was for left arm venogram and to continue 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. Based on venogram, would make a decision about surgery for indication of venous TOS. Today: Arm symptoms worse with PT The patient reports worsening pain and increased clicking sensations during physical therapy exercises, particularly when lying on her side and moving her arm. She notes increased swelling in the affected area but denies any visible veins protruding around her shoulder. She is currently on 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 therapy and missed one dose recently due to caring for her sick children. 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 Vascular health status: Smoking status: never Anti-platelet/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 (if A/C - indication?): lovenox 55mg BID for DVT/PE Statin or PCSK9i: N/A Past Vascular Surgeries: N/A Other Non Vascular PMH/PSH: N/A Most recent cardiac testing (TTE, Stress, LHC): - 06/03/24 limited echo: Impression CONCLUSIONS: - Exam indication: Arrhythmia - The left ventricle is normal in size. Left ventricular systolic function is normal. EF = 58 5% (2D 4-ch.) Normal left ventricular diastolic function. - The right ventricle is normal in size. Right ventricular systolic function is normal. - Exam was compared with the prior echocardiographic exam performed on 12/17/2006. No images or report available for comparison. Care Team: Physician managing CV risk factors - Nata Valle Other - Ravinder Sands (PCP) MEDICATIONS: acetaminophen (TYLENOL EXTRA STRENGTH) 500 mg tablet Take 500 mg by mouth every 8 hours as needed. enoxaparin (LOVENOX) 60 mg/0.6 mL syrg Inject 0.55 mL subcutaneously two times a day. Inject entire contents of one(1) syringe levothyroxine (LEVOXYL) 88 mcg tablet Take 1 tablet by mouth once daily. Take on empty stomach. For Thyroid potassium chloride 20 mEq TbER Take 1 tablet by mouth once daily. PHYSICAL EXAM: VITALS: BP 110/64 Pulse 82 Wt 121 lb (54.9kg) LMP 10/28/2024 Exam today: Significant TTP brachial plexus above clavicle and over pec minor No left upper extremity edema or chest wall collateral DIAGNOSTIC TESTS REVIEWED FOR TODAY'S VISIT: None today IMPRESSION: Mixed venous and neurogenic TOS. Unfortunately, physical therapy has exacerbated her neurogenic symptoms PLAN and RECOMMENDATIONS: Left arm venogram next week. She is set up for this. She does not need to stop 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 for this which I reiterated. Based off this, we will make a decision about whether to pursue rib resection or not. Her neurogenic symptoms seem practically debilitating and she may warrant rib resection for this regardless of the status of her subclavian vein. -Since the physical therapy is making her symptoms worse, I told her to stop - Recommend continuing medical optimization of cardiovascular risk factors at the direction of medical team listed above Medical Decision Making: Problems: Moderate: 1+ chronic illnesses with change Data: Unique source(s) for external note(s) reviewed: 1 Risk: Low: Low risk from testing/treatment Moderate: Decision on elective major surgery w/o risk factors Medical Decision Making Level: 4 - Moderate Praful Guajardo MD Vascular Surgery Staff November 11, 2024 10:46 AM documented in this encounter [facility] 11-11-2024 Note [facility] 11-08-2024 History of Present illness Narrative Program_ID:[id number] Access Code: [email or web address] URL: [email or web address] Date: 11-08-2024 Prepared By: Estefania Benavides Program Notes Exercises - Gentle Levator Scapulae Stretch - 1 x daily - 7 x weekly - 1 sets - 3 reps - Seated Gentle Upper Trapezius Stretch - 1 x daily - 7 x weekly - 1 sets - 3 reps - Supine Chin Tuck - 1 x daily - 7 x weekly - 4 sets - 10 reps - Supine Anterior Scalene Stretch - 1 x daily - 7 x weekly - 3 sets - reps - Supine Posterior Scalene Stretch - 1 x daily - 7 x weekly - 3 sets - 1 reps - Seated Scapular Retraction - 1 x daily - 7 x weekly - 2 sets - 15 reps Episode Visit Count: 2 Therapist That Will Accept/Oversee The Plan Of Care: Estefania Benavides Start of Care Date: 11/03/24 Onset Date: 11/03/19 Plan of Care Certification Date: 11/03/24 Next Certification Due Date: 12/15/24 RE[facility]ABILITATION AND SPORTS THERAPY PHYSICAL THERAPY TREATMENT NOTE ASSESSMENT: Matt Baum tolerated the session with increased symptoms. She demonstrated difficulty with tolerating all stretches involving the shoulder but was able to better tolerate neck stretching. The patient will continue to benefit from ongoing skilled physical therapy to progress toward set goals. PLAN FOR NEXT VISIT: continue stretching as tolerated SUBJECTIVE: Pt. states she is in a lot of pain right now. Pt. was seen in the ED 11/05/24. Pt. has increased L side neck/scapular pain. Per ED provider note, blood clot UE has not progressed. Pt. Functional Limitations: lifting, recreational activities (spotting for gymnastics, folding laundry) Pain: Pain Pain Level: (does not rate) Pain Location: Arm - Left, Arm - Right Post Treatment Pain Post Treatment Pain Level: No Change Post Treatment Pain Location: Arm - Right, Arm - Left OBJECTIVE MEASURES WITH LEVEL OF FUNCTION: TREATMENT: Therapeutic Exercise: 1: *Access Code: [email or web address] URL: [email or web address] Date: 11/08/2024 Prepared by: Estefania Harris Exercises - Gentle Levator Scapulae Stretch - 1 x daily - 7 x weekly - 1 sets - 3 reps - 30 hold - Seated Gentle Upper Trapezius Stretch - 1 x daily - 7 x weekly - 1 sets - 3 reps - 30 hold - Supine Chin Tuck - 1 x daily - 7 x weekly - 4 sets - 10 reps - Supine Anterior Scalene Stretch - 1 x daily - 7 x weekly - 3 sets - 30 hold - Supine Posterior Scalene Stretch - 1 x daily - 7 x weekly - 3 sets - 1 reps - 30 hold - Seated Scapular Retraction - 1 x daily - 7 x weekly - 2 sets - 15 reps 2: SL open book stretch (SL L, RUE reaching ROM that is tolerable) 3: B scapular circles rev and anterior 2x15 each side Skilled Intervention: Patient was educated in proper exercise technique and purpose for exercises. Skilled judgment was used in selection of appropriate interventions. Provided written instruction for home exercise program to facilitate proper performance and compliance. Correct performance of therapeutic exercises was facilitated with verbal, visual, and tactile cuing. Educated patient on rationale for performing exercises in regards to decreasing fatigue , increase ease of ADL, and ROM and function . Patient education as noted. Self-Residential Management: 1: discussed anatomy of the scalenes, pectoralis minor -- showed pictures 2: discussed that spotting with gymnastics should be discussed with physician Skilled Intervention: Skilled judgment in the selection of proper modification for activity of daily living/home management based on clinical presentation, deficits, and needs. Provided written instruction for activities of daily living techniques to facilitate proper performance and compliance. Activity progression based on professional judgement. Moderate verbal cues for maintaining neutral spine alignment. Billing Therapeutic Exercise Treatment Minutes: 20 Self-Care/Home Management Treatment Minutes: 5 Skilled Treatment Time Minutes (timed and untimed codes): 25 Total Session Time (minutes): 25 Session Start Time : 1800 Session Stop Time : 182 Estefania Benavides PT documented in this encounter [facility] 11-08-2024 Note [facility] 11-07-2024 Telephone encounter Note Mrs. Baum called with concerns over arm swelling and increased pain. She stated she is having this weird pressure that is wrapping around her side. She also said that we she was in the ED they also told her the colts are still there. She is very concerned and said she does not feel right. Estefania River Circular Head Saw Operator [facility] Work Phone: 11-07-2024 Miscellaneous Notes Mrs. Baum called with concerns over arm swelling and increased pain. She stated she is having this weird pressure that is wrapping around her side. She also said that we she was in the ED they also told her the colts are still there. She is very concerned and said she does not feel right. Estefania River Circular Head Saw Operator documented in this encounter [facility] 11-05-2024 Telephone encounter Note Patient is calling due to swelling in LUE. This is new as of today. Denies pain, numbness or tingling. Patient has a h/o blood clots and takes lovenox BID. She states that a few days ago, she believes she missed a morning dose. Her kids were sick and once she remembered, she was unsure if she took it and didn't want to take too much. With her h/o DVTs, she has no symptoms with them usually. She denies redness, warmth or bruising to LUE. Due to possibly missing a dose of Lovenox, patient is instructed to go to the ER for an US. [facility] Work Phone: 11-05-2024 Miscellaneous Notes Patient is calling due to swelling in LUE. This is new as of today. Denies pain, numbness or tingling. Patient has a h/o blood clots and takes lovenox BID. She states that a few days ago, she believes she missed a morning dose. Her kids were sick and once she remembered, she was unsure if she took it and didn't want to take too much. With her h/o DVTs, she has no symptoms with them usually. She denies redness, warmth or bruising to LUE. Due to possibly missing a dose of Lovenox, patient is instructed to go to the ER for an US. documented in this encounter [facility] 11-04-2024 History and physical note Images from the original note were not included. [facility] HISTORY AND PHYSICAL EXAMINATION SERVICE DATE: 11/04/2024 SERVICE TIME: 9:41 AM PRIMARY CARE PHYSICIAN: Ravinder Babb MD Assessment Patient has the following medical conditions which may affect satnam-operative course: Acquired hypothyroidism Assessment: stable on rx, recent adjustment of thyroid medication due to recheck in 1 month, asymptomatic TSH Date Value Ref Range Status 10/12/2024 11.590 (H) 0.270 - 4.200 mIU/L Final Comment: If the patient is , TSH reference range varies by gestational period: First Trimester (weeks 9-12): 0.180-2.990 mIU/L Second Trimester: 0.110-3.980 mIU/L Third Trimester: 0.480-4.710 mIU/L Skyler Ozuna, et al. A Practical Approach for the Verifications and Determination of Site- and Trimester-Specific Reference Intervals for Thyroid Function tests in . Thyroid, 2019:29:3:412-420. Dom E, et al. 2017 Guidelines of the [place] Thyroid Association for the Diagnosis and Management of Thyroid Disease during and the . Thyroid, 2017:27:3:315-389. Hypokalemia Assessment: on rx Potassium Date Value Ref Range Status 11/04/2024 4.2 3.7 - 5.1 mmol/L Final Iron malabsorption Assessment: hx, normal CBC 11/04/2024 PE (pulmonary thromboembolism) (HCC) Assessment: following hematology, daily Lovenox 10/31/2024 Dr. Quarles -History of PE which may have been provoked. -Heterozygous prothrombin gene mutation. -Developed left upper extremity DVT when off 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. -Now back on Lovenox after potential breakthrough thrombus on apixaban. -No longer breast-feeding. Chronic deep vein thrombosis (DVT) of left upper extremity (HCC) Assessment: recent ED visit below following [facility] appt for arm pain, US showed no new progression, surgeon's office aware, see TE 11/07/2024, has f/u with surgeon Thursday11/11/2024 11/05/2024 Dr. Lai Patient presenting with concerns for worsening DVTs in her left upper extremity. DVT ultrasound was ordered to gauge progression of her known clots and to evaluate for new thrombus. Patient had good palpable pulses, cap refill under 2 seconds suggesting a well-perfused limb, I have low suspicion for ischemic limb. Ultrasound findings showed stable thrombus without significant progression. Patient is already established care with vascular surgery and has a scheduled venogram coming up on November 17. Rechecked her PT and PTT which suggest she is being adequately anticoagulated however as she is on Lovenox a more accurate assessment would have to be performed as an outpatient. As the patient has no new findings on her DVT ultrasound I feel the most appropriate plan of action is for her to follow-up closely with vascular surgery and to get her venogram later this month. TRUDI (generalized anxiety disorder) Assessment: situational, no current tx [place] Activity Status Index: METS: Climb a flight of stairs or walk up a hill (5.50 METs) DASI Score: 5.5 Patient denies any chest pain or undue shortness of breath with the above physical activity. Clinical Frailty Scale: 3. Well, with treated comorbid disease STOP-Bang Score: Denies snoring loudly Denies feeling tired, fatigued, or sleepy during the daytime Has not been observed to stop breathing or choking/gasping during sleep Denies having high blood pressure BMI less than or equal to 35 kg/m^2 Patient 50 years old or younger Does not have a large neck Non-male patient STOP-Bang Score: 0 [id number] Score: Age: <65 Sex: female CHF history: No Hypertension history: No Stroke/TIA/thromboembolism history: No Vascular disease history: No Diabetes history: No [id number] Score: 1 ARISCAT Score: Age: <=50 Preoperative SpO2: >=96% Respiratory infection in the last month: No Preoperative anemia: No Surgical incision: peripheral Duration of surgery: <2 hrs Emergency procedure: No ARISCAT Score: 0 ANESTHESIA FINDINGS: Intubation History: No history of difficult intubation Significant Anesthesia Considerations: none Airway History: No history of difficult airway I - PHYSICAL EVALUATION AIRWAY Patient intubated: No. Tracheostomy tube not present Mallampati: II. TM distance: >3 FB. Neck ROM: full ROM without neurological symptoms. Mouth opening: adequate. Short neck: no. Thick neck: no Kline present: no Lip Bite Test: I Microretrognathia/Micronagthia/R ecessed Chin: No DENTAL Dental findings: teeth intact. II - ANESTHESIA PLAN Anesthetic Plan: other Beta Rosalie Monitoring Plan Post Procedure Analgesic Plan Prepared for Surgery: optimally prepared for surgery. Labs-reviewed, okay to proceed-JL Received Lovenox instructions from Dr. Willam LANGLEY 11/01/2024 CONSULTS: Patient does not require consults for optimization at this time Planned Anesthetic: other anesthesia choice The Following Tests/Procedures Have Been Initiated: No orders of the defined types were placed in this encounter. REASON FOR VISIT: Matt Baum is a 33 year old female who is scheduled for Procedure(s): VENOGRAM EXTREMITY UPPER (Left) at the request of Dr. Praful Guajardo for consultation. My final recommendation will be communicated back to the requesting physician by way of shared medical record or letter. Subjective The patient has the following: COVID-19 Immunization Status Overdue - Covid-19 Vaccine ( season) Never done No completion, postpone, frequency change, or communication history exists for this topic. CHIEF COMPLAINT: Pre-op exam HPI: Matt Baum is a 33 year old seen for PAC due to scheduled above surgery because of TOS. 10/25/2024, Dr. Praful Guajardo 33 year old female with a PMH & PSH as detailed below who presents today for evaluation of venous TOS. Chart Prep: Seen recently by Nata Valle who was suspicious of left upper extremity venous thoracic out syndrome. She documents a history of left IJ and axillosubclavian DVT dating back to May 2024. She had been on and off Eliquis and Lovenox since then. Most recently was admitted early October due to a popping sensation in her left arm. A duplex was completed at that time showing chronic prothrombotic changes in her left axillosubclavian vein. An APS panel was negative at that time and she was continued on her Lovenox. When she saw Dr. Valle, she reported ongoing burning pain over the left chest, shoulder, and upper arm. She has a baseline soreness and heaviness of the left arm as well as numbness and tingling of the arm whenever she lays on it. 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 Denies any family history of VTE. Never smoker. No drug use. Denies family history of aneurysm. Has been compliant with her 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 and currently is on lovenox 55mg BID. Also of note, she had a PE in [address] 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 She does believe that the patient requires lifelong 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, however, if her TOS is fixed, she would consider switching her back to Eliquis which she prefers. Patient reporting today: Description of presenting symptoms - she reports LUE aching and heaviness, numbness and tingling, and pain in her left shoulder, supraclavicular area, and lateral and anterior ribcage. She denies notable swelling of the LUE. H/o DVT -yes. 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 History of hypercoagulable conditions-heterozygous for prothrombin gene mutation. APS panel negative on 2 occasions. History of prior neck surgery or radiation - no H/o prior clavicle fracture - no AMBIENCE AI: The patient reports a history of left arm swelling and pain dating back to 2018, with significant escalation in May. She has undergone multiple ultrasounds with varying results. She has a known factor II mutation, heterozygous, and has experienced a PE. She was not on 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 from January to May, during which time she believes the clot developed. She describes a rib protrusion on one side and possible compression on the other. She reports tenderness above and below the clavicle on the left side. Swelling in the left arm has been consistent, not severe, but more pronounced than the right arm. Initially, pain originated in a specific area, followed by a pop and a bulge, with excruciating pain radiating upwards, prompting an ER visit. She notes discoloration in the area similar to when she had an acute clot in September. She recalls a blunt force trauma in September when she hit her arm on a doorknob, causing intense pain. She also had a spontaneous hematoma on her leg in June. She reports that the left arm feels firmer compared to the right. She experiences pressure under her ribs and back, and her pain has increased since leaving the hospital. She also reports left calf pain without known trauma. REVIEW OF SYSTEMS: General: No weight loss, malaise or fevers. 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 No neurological symptoms or problems. Respiratory: Positive for: URI < 2 weeks (recent RSV). Negative for: asthma, COPD, current cough, dyspnea, pneumonia within 6 weeks, tobacco use and obstructive sleep apnea. Cardiovascular: Positive for: 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 therapy, arrhythmia and DVT/PE Negative for: abdominal aortic aneurysm, AICD/PPM, angina, atrial fibrillation, CAD, chest pain, CHF, congenital heart defect, hyperlipidemia, hypertension, recent PR, murmur/valvular heart disease, PTCA, PVD, open heart surgery and valve surgery. GI: No history of GI symptoms or problems. No history of esophageal varices, recent ascites, or ETOH greater than 2 drinks per day. Negative for: rectal cancer. : No history of dysuria, frequency or incontinence, stones or chronic kidney disease. No difficulty urinating, nocturia > 1 time per night or hematuria. 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 Endocrine: Positive for: hypothyroidism (on rx). Negative for: diabetes mellitus. Hematology: Factor II deficiency +hypokalemia, on rx Positive for: bruises/bleeds easily (easily bruises) and chronic anti-coagulation/platelet meds. MELITON - Chronic Anticoagulative/Platelet Meds Cmt Option Cat List: Lovenox. Negative for: anemia and transfusion of at least 4 units within 72 hours prior to surgery. Oncology: No history of CA metastasis, chemo within 30 days, or radiotherapy within 90 days. No history of oncological symptoms or problems. Psych: No history of psychiatric symptoms or problems. Musculoskeletal: See HPI. Skin: Negative for lesions, rash and itching. 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 Patient son born with a cyst on the brain. It was surgically removed when he was 6 years old. 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 PE (pulmonary thromboembolism) (HCC) 05/10/2019 05/10/2019 Situational stress 01/31/2020 Thoracic outlet syndrome 10/25/2024 Vocal cord dysfunction Paradoxical VOCAL CORD DYSFUNCTION PAST SURGICAL HISTORY Procedure Laterality Date APPENDECTOMY TONSILLECTOMY & ADENOIDECTOMY FAMILY HISTORY Problem Relation Age of Onset Psychiatry Mother BIPOLAR Thyroid Mother Stroke Father Alcohol abuse Father No Known Problems Sister No Known Problems Sister No Known Problems Sister No Known Problems Brother Arthritis Maternal Grandmother Heart Maternal Grandmother Osteoporosis Maternal Grandmother Stroke Maternal Grandmother other (Hypotension) Maternal Grandmother Heart Maternal Grandfather Hypertension Maternal Grandfather Alcohol/Drug Maternal Grandfather Psychiatry Maternal Grandfather BIPOLAR No Known Problems Paternal Grandmother No Known Problems Paternal Grandfather No Known Problems Daughter No Known Problems Daughter other (cyst on brain) Son No Known Problems Son No Ocular Disease No Family History Malig Hyperthermia No Family History Social History Tobacco Use Smoking status: Never Smokeless tobacco: Never Tobacco comments: No smoking in family Vaping Use Vaping status: Never Used Substance Use Topics Alcohol use: Not Currently Drug use: No Prior to Admission medications as of 11/09/24 0937 Medication Sig Last Dose Taking acetaminophen (TYLENOL EXTRA STRENGTH) 500 mg tablet Take 500 mg by mouth every 8 hours as needed. Taking Yes enoxaparin (LOVENOX) 60 mg/0.6 mL syrg Inject 0.55 mL subcutaneously two times a day. Inject entire contents of one(1) syringe Taking Yes levothyroxine (LEVOXYL) 88 mcg tablet Take 1 tablet by mouth once daily. Take on empty stomach. For Thyroid Taking Yes potassium chloride 20 mEq TbER Take 1 tablet by mouth once daily. Taking Yes Medication Comments documented by Nata Small RN on 11/08/2009 at 0911. All medications have been reviewed today/July 12, 2007 Pat Torres Lpn All medications reviewed today/November 08, 2009 Nata Small Rn ALLERGIES Allergen Reactions Pereira Pepper Anaphylaxis, Other: See Comments Latex Anaphylaxis, Hives Amoxicillin Hives, Swelling Banana Swelling Latex Hives Verified by skin testing Nubain [Nalbuphine * Rash Avocado Itching Carrot Itching [place] And Derivati* Other: See Comments Kiwi Itching Hydroxyzine Other: See Comments Extreme fatigue Omeprazole Other: See Comments nausea Sertraline Other: See Comments Bruising, stopped by hematology 12/3022 was interacting with blood thinners Objective PHYSICAL EXAM: General: alert and oriented (x3) and healthy appearance. Pertinent negatives noted - not distressed. Skin: normal color, no rash or lesions. HEENT: EOM intact and pupils equal round. Pertinent negatives noted - no carotid bruit. Cardiovascular: regular rate and rhythm, normal S1 and S2, no rub, murmurs, or gallop. Respiratory: normal breath sounds, no wheezes or crackles. No chest wall deformity or tenderness. Abdomen: soft. Pertinent negatives noted - not tender. Extremities: no deformity, no edema or tenderness, no joint swelling or clubbing. Neurological: normal cognition and motor skills. Gait normal. No weakness or sensory deficit. PAIN ASSESSMENT: Pain Pain Level: 7 (arm - 7, foot 4 constant) Pain Location: Arm-Left (left leg) Description: Dull Frequency: (foot constant, arm intermittent) VITALS: BP 114/68 Pulse 66 Temp (Src) 97.5 (Temporal) Resp 14 Ht 5' 3.5 (1.61m) Wt 116 lb (52.6kg) SpO2 98% LMP 10/28/2024 BMI 20.22 kg/(m^2). Diagnostic tests reviewed for today's visit: Lab Value Units Date High Low HB 13.8 g/dL 11/04/2024 15.5 11.5 HCT 41.9 % 11/04/2024 46.0 36.0 WBC 3.10 k/uL 11/04/2024 11.00 3.70 PLT 162 k/uL 11/04/2024 400 150 NA 141 mmol/L 11/04/2024 144 136 K 4.2 mmol/L 11/04/2024 5.1 3.7 GLUC 96 mg/dL 11/04/2024 99 74 BUN 8 mg/dL 11/04/2024 21 7 CREAT 0.70 mg/dL 11/04/2024 0.96 0.58 PTSEC 11.9 sec 11/06/2024 13.0 9.7 INR 1.1 no uni* 11/06/2024 1.3 0.9 APTT 35.7 sec 11/06/2024 32.4 23.0 ALT 19 U/L 10/13/2024 38 7 AST 17 U/L 10/13/2024 35 13 TBILI 0.3 mg/dL 10/13/2024 1.3 0.2 TSH 11.590 mIU/L 10/13/2024 4.200 0.270 Lab Value Units Date High Low HCGQT No results within date range. UHCG No results within date range. HCG, BODY* No results within date range. Lab Value Units Date High Low ABORHD No results within date range. ABSCREEN No results within date range. Hemoglobin A1C (%) Date Value 02/13/2022 5.1 11/13/2021 5.0 Recent Results (from the past 8760 hour(s)) ECG COMPLETE Collection Time: 06/02/24 9:50 AM Result Value Ventricular Rate 71 Atrial Rate 71 P-R Interval 168 QRS Duration 96 QT Interval 398 QTC Calculation (Bazett) 432 Calculated P Pioneer 36 Calculated R Pioneer 25 Calculated T Pioneer 4 Impression NORMAL SINUS RHYTHM INCOMPLETE RIGHT BUNDLE BRANCH BLOCK NONSPECIFIC T WAVE ABNORMALITY ABNORMAL ECG WHEN COMPARED WITH ECG OF 05-Jan-2024 13:06, NO SIGNIFICANT CHANGE WAS FOUND Confirmed by MD STEPHANIE, MAURIZIO () on 06/03/2024 10:31:40 AM No results found for this or any previous visit (from the past 37280 hour(s)). Instructions Given to Patient: Instructions located in the after visit summary. Patient given verbal and written preop instructions and voices comprehension and compliance. SIGNATURE: Moira Kenney APRN.CNP PATIENT NAME: Matt Baum DATE: November 04, 2024 TIME: 2:08 PM PAGER/CONTACT #: [email or web address] 11-04-2024 History and physical note Images from the original note were not included. [facility] HISTORY AND PHYSICAL EXAMINATION SERVICE DATE: 11/04/2024 SERVICE TIME: 9:41 AM PRIMARY CARE PHYSICIAN: Ravinder Babb MD Assessment Patient has the following medical conditions which may affect satnam-operative course: Acquired hypothyroidism Assessment: stable on rx, recent adjustment of thyroid medication due to recheck in 1 month, asymptomatic TSH Date Value Ref Range Status 10/12/2024 11.590 (H) 0.270 - 4.200 mIU/L Final Comment: If the patient is , TSH reference range varies by gestational period: First Trimester (weeks 9-12): 0.180-2.990 mIU/L Second Trimester: 0.110-3.980 mIU/L Third Trimester: 0.480-4.710 mIU/L Skyler Ozuna et al. A Practical Approach for the Verifications and Determination of Site- and Trimester-Specific Reference Intervals for Thyroid Function tests in . Thyroid, 2019:29:3:412-420. Dom Nichols, et al. 2017 Guidelines of the [place] Thyroid Association for the Diagnosis and Management of Thyroid Disease during and the . Thyroid, 2017:27:3:315-389. Hypokalemia Assessment: on rx Potassium Date Value Ref Range Status 11/04/2024 4.2 3.7 - 5.1 mmol/L Final Iron malabsorption Assessment: hx, normal CBC 11/04/2024 PE (pulmonary thromboembolism) (HCC) Assessment: following hematology, daily Lovenox 10/31/2024 Dr. Quarles -History of PE which may have been provoked. -Heterozygous prothrombin gene mutation. -Developed left upper extremity DVT when off 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. -Now back on Lovenox after potential breakthrough thrombus on apixaban. -No longer breast-feeding. Chronic deep vein thrombosis (DVT) of left upper extremity (HCC) Assessment: recent ED visit below following [facility] appt for arm pain, US showed no new progression, surgeon's office aware, see TE 11/07/2024, has f/u with surgeon Thursday11/11/2024 11/05/2024 Dr. Lai Patient presenting with concerns for worsening DVTs in her left upper extremity. DVT ultrasound was ordered to gauge progression of her known clots and to evaluate for new thrombus. Patient had good palpable pulses, cap refill under 2 seconds suggesting a well-perfused limb, I have low suspicion for ischemic limb. Ultrasound findings showed stable thrombus without significant progression. Patient is already established care with vascular surgery and has a scheduled venogram coming up on November 17. Rechecked her PT and PTT which suggest she is being adequately anticoagulated however as she is on Lovenox a more accurate assessment would have to be performed as an outpatient. As the patient has no new findings on her DVT ultrasound I feel the most appropriate plan of action is for her to follow-up closely with vascular surgery and to get her venogram later this month. TRUDI (generalized anxiety disorder) Assessment: situational, no current tx [place] Activity Status Index: METS: Climb a flight of stairs or walk up a hill (5.50 METs) DASI Score: 5.5 Patient denies any chest pain or undue shortness of breath with the above physical activity. Clinical Frailty Scale: 3. Well, with treated comorbid disease STOP-Bang Score: Denies snoring loudly Denies feeling tired, fatigued, or sleepy during the daytime Has not been observed to stop breathing or choking/gasping during sleep Denies having high blood pressure BMI less than or equal to 35 kg/m^2 Patient 50 years old or younger Does not have a large neck Non-male patient STOP-Bang Score: 0 [id number] Score: Age: <65 Sex: female CHF history: No Hypertension history: No Stroke/TIA/thromboembolism history: No Vascular disease history: No Diabetes history: No [id number] Score: 1 ARISCAT Score: Age: <=50 Preoperative SpO2: >=96% Respiratory infection in the last month: No Preoperative anemia: No Surgical incision: peripheral Duration of surgery: <2 hrs Emergency procedure: No ARISCAT Score: 0 ANESTHESIA FINDINGS: Intubation History: No history of difficult intubation Significant Anesthesia Considerations: none Airway History: No history of difficult airway I - PHYSICAL EVALUATION AIRWAY Patient intubated: No. Tracheostomy tube not present Mallampati: II. TM distance: >3 FB. Neck ROM: full ROM without neurological symptoms. Mouth opening: adequate. Short neck: no. Thick neck: no Kline present: no Lip Bite Test: I Microretrognathia/Micronagthia/R ecessed Chin: No DENTAL Dental findings: teeth intact. II - ANESTHESIA PLAN Anesthetic Plan: other Beta Rosalie Monitoring Plan Post Procedure Analgesic Plan Prepared for Surgery: optimally prepared for surgery. Labs-reviewed, okay to proceed-JL Received Lovenox instructions from Dr. Willam LANGLEY 11/01/2024 CONSULTS: Patient does not require consults for optimization at this time Planned Anesthetic: other anesthesia choice The Following Tests/Procedures Have Been Initiated: No orders of the defined types were placed in this encounter. REASON FOR VISIT: Matt Baum is a 33 year old female who is scheduled for Procedure(s): VENOGRAM EXTREMITY UPPER (Left) at the request of Dr. Praful Guajardo for consultation. My final recommendation will be communicated back to the requesting physician by way of shared medical record or letter. Subjective The patient has the following: COVID-19 Immunization Status Overdue - Covid-19 Vaccine () Never done No completion, postpone, frequency change, or communication history exists for this topic. CHIEF COMPLAINT: Pre-op exam HPI: Matt Baum is a 33 year old seen for PAC due to scheduled above surgery because of TOS. 10/25/2024, Dr. Praful Guajardo 33 year old female with a PMH & PSH as detailed below who presents today for evaluation of venous TOS. Chart Prep: Seen recently by Nata Valle who was suspicious of left upper extremity venous thoracic out syndrome. She documents a history of left IJ and axillosubclavian DVT dating back to May 2024. She had been on and off Eliquis and Lovenox since then. Most recently was admitted early October due to a popping sensation in her left arm. A duplex was completed at that time showing chronic prothrombotic changes in her left axillosubclavian vein. An APS panel was negative at that time and she was continued on her Lovenox. When she saw Dr. Valle, she reported ongoing burning pain over the left chest, shoulder, and upper arm. She has a baseline soreness and heaviness of the left arm as well as numbness and tingling of the arm whenever she lays on it. 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 Denies any family history of VTE. Never smoker. No drug use. Denies family history of aneurysm. Has been compliant with her 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 and currently is on lovenox 55mg BID. Also of note, she had a PE in [address] 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 She does believe that the patient requires lifelong 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, however, if her TOS is fixed, she would consider switching her back to Eliquis which she prefers. Patient reporting today: Description of presenting symptoms - she reports LUE aching and heaviness, numbness and tingling, and pain in her left shoulder, supraclavicular area, and lateral and anterior ribcage. She denies notable swelling of the LUE. H/o DVT -yes. 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 History of hypercoagulable conditions-heterozygous for prothrombin gene mutation. APS panel negative on 2 occasions. History of prior neck surgery or radiation - no H/o prior clavicle fracture - no AMBIENCE AI: The patient reports a history of left arm swelling and pain dating back to 2018, with significant escalation in May. She has undergone multiple ultrasounds with varying results. She has a known factor II mutation, heterozygous, and has experienced a PE. She was not on 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 from January to May, during which time she believes the clot developed. She describes a rib protrusion on one side and possible compression on the other. She reports tenderness above and below the clavicle on the left side. Swelling in the left arm has been consistent, not severe, but more pronounced than the right arm. Initially, pain originated in a specific area, followed by a pop and a bulge, with excruciating pain radiating upwards, prompting an ER visit. She notes discoloration in the area similar to when she had an acute clot in September. She recalls a blunt force trauma in September when she hit her arm on a doorknob, causing intense pain. She also had a spontaneous hematoma on her leg in June. She reports that the left arm feels firmer compared to the right. She experiences pressure under her ribs and back, and her pain has increased since leaving the hospital. She also reports left calf pain without known trauma. REVIEW OF SYSTEMS: General: No weight loss, malaise or fevers. 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 No neurological symptoms or problems. Respiratory: Positive for: URI < 2 weeks (recent RSV). Negative for: asthma, COPD, current cough, dyspnea, pneumonia within 6 weeks, tobacco use and obstructive sleep apnea. Cardiovascular: Positive for: 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 therapy, arrhythmia and DVT/PE Negative for: abdominal aortic aneurysm, AICD/PPM, angina, atrial fibrillation, CAD, chest pain, CHF, congenital heart defect, hyperlipidemia, hypertension, recent PR, murmur/valvular heart disease, PTCA, PVD, open heart surgery and valve surgery. GI: No history of GI symptoms or problems. No history of esophageal varices, recent ascites, or ETOH greater than 2 drinks per day. Negative for: rectal cancer. : No history of dysuria, frequency or incontinence, stones or chronic kidney disease. No difficulty urinating, nocturia > 1 time per night or hematuria. 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 Endocrine: Positive for: hypothyroidism (on rx). Negative for: diabetes mellitus. Hematology: Factor II deficiency +hypokalemia, on rx Positive for: bruises/bleeds easily (easily bruises) and chronic anti-coagulation/platelet meds. MELITON - Chronic Anticoagulative/Platelet Meds Cmt Option Cat List: Lovenox. Negative for: anemia and transfusion of at least 4 units within 72 hours prior to surgery. Oncology: No history of CA metastasis, chemo within 30 days, or radiotherapy within 90 days. No history of oncological symptoms or problems. Psych: No history of psychiatric symptoms or problems. Musculoskeletal: See HPI. Skin: Negative for lesions, rash and itching. 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 Patient son born with a cyst on the brain. It was surgically removed when he was 6 years old. 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 PE (pulmonary thromboembolism) (HCC) 05/10/2019 05/10/2019 Situational stress 01/31/2020 Thoracic outlet syndrome 10/25/2024 Vocal cord dysfunction Paradoxical VOCAL CORD DYSFUNCTION PAST SURGICAL HISTORY Procedure Laterality Date APPENDECTOMY TONSILLECTOMY & ADENOIDECTOMY <AGE 12 1994 FAMILY HISTORY Problem Relation Age of Onset Psychiatry Mother BIPOLAR Thyroid Mother Stroke Father Alcohol abuse Father No Known Problems Sister No Known Problems Sister No Known Problems Sister No Known Problems Brother Arthritis Maternal Grandmother Heart Maternal Grandmother Osteoporosis Maternal Grandmother Stroke Maternal Grandmother other (Hypotension) Maternal Grandmother Heart Maternal Grandfather Hypertension Maternal Grandfather Alcohol/Drug Maternal Grandfather Psychiatry Maternal Grandfather BIPOLAR No Known Problems Paternal Grandmother No Known Problems Paternal Grandfather No Known Problems Daughter No Known Problems Daughter other (cyst on brain) Son No Known Problems Son No Ocular Disease No Family History Malig Hyperthermia No Family History Social History Tobacco Use Smoking status: Never Smokeless tobacco: Never Tobacco comments: No smoking in family Vaping Use Vaping status: Never Used Substance Use Topics Alcohol use: Not Currently Drug use: No Prior to Admission medications as of 11/09/24 0937 Medication Sig Last Dose Taking acetaminophen (TYLENOL EXTRA STRENGTH) 500 mg tablet Take 500 mg by mouth every 8 hours as needed. Taking Yes enoxaparin (LOVENOX) 60 mg/0.6 mL syrg Inject 0.55 mL subcutaneously two times a day. Inject entire contents of one(1) syringe Taking Yes levothyroxine (LEVOXYL) 88 mcg tablet Take 1 tablet by mouth once daily. Take on empty stomach. For Thyroid Taking Yes potassium chloride 20 mEq TbER Take 1 tablet by mouth once daily. Taking Yes Medication Comments documented by Nata Small RN on 11/08/2009 at 0911. All medications have been reviewed todayJuly 12, 2007 Pat Torres Lpn All medications reviewed todayNovember 08, 2009 Nata Small Rn ALLERGIES Allergen Reactions Pereira Pepper Anaphylaxis, Other: See Comments Latex Anaphylaxis, Hives Amoxicillin Hives, Swelling Banana Swelling Latex Hives Verified by skin testing Nubain [Nalbuphine * Rash Avocado Itching Carrot Itching [place] And Derivati* Other: See Comments Kiwi Itching Hydroxyzine Other: See Comments Extreme fatigue Omeprazole Other: See Comments nausea Sertraline Other: See Comments Bruising, stopped by hematology 12/3022 was interacting with blood thinners Objective PHYSICAL EXAM: General: alert and oriented (x3) and healthy appearance. Pertinent negatives noted - not distressed. Skin: normal color, no rash or lesions. HEENT: EOM intact and pupils equal round. Pertinent negatives noted - no carotid bruit. Cardiovascular: regular rate and rhythm, normal S1 and S2, no rub, murmurs, or gallop. Respiratory: normal breath sounds, no wheezes or crackles. No chest wall deformity or tenderness. Abdomen: soft. Pertinent negatives noted - not tender. Extremities: no deformity, no edema or tenderness, no joint swelling or clubbing. Neurological: normal cognition and motor skills. Gait normal. No weakness or sensory deficit. PAIN ASSESSMENT: Pain Pain Level: 7 (arm - 7, foot 4 constant) Pain Location: Arm-Left (left leg) Description: Dull Frequency: (foot constant, arm intermittent) VITALS: BP 114/68 Pulse 66 Temp (Src) 97.5 (Temporal) Resp 14 Ht 5' 3.5 (1.61m) Wt 116 lb (52.6kg) SpO2 98% LMP 10/28/2024 BMI 20.22 kg/(m^2). Diagnostic tests reviewed for today's visit: Lab Value Units Date High Low HB 13.8 g/dL 11/04/2024 15.5 11.5 HCT 41.9 % 11/04/2024 46.0 36.0 WBC 3.10 k/uL 11/04/2024 11.00 3.70 PLT 162 k/uL 11/04/2024 400 150 NA 141 mmol/L 11/04/2024 144 136 K 4.2 mmol/L 11/04/2024 5.1 3.7 GLUC 96 mg/dL 11/04/2024 99 74 BUN 8 mg/dL 11/04/2024 21 7 CREAT 0.70 mg/dL 11/04/2024 0.96 0.58 PTSEC 11.9 sec 11/06/2024 13.0 9.7 INR 1.1 no uni* 11/06/2024 1.3 0.9 APTT 35.7 sec 11/06/2024 32.4 23.0 ALT 19 U/L 10/13/2024 38 7 AST 17 U/L 10/13/2024 35 13 TBILI 0.3 mg/dL 10/13/2024 1.3 0.2 TSH 11.590 mIU/L 10/13/2024 4.200 0.270 Lab Value Units Date High Low HCGQT No results within date range. UHCG No results within date range. HCG, BODY* No results within date range. Lab Value Units Date High Low ABORHD No results within date range. ABSCREEN No results within date range. Hemoglobin A1C (%) Date Value 02/13/2022 5.1 11/13/2021 5.0 Recent Results (from the past 8760 hour(s)) ECG COMPLETE Collection Time: 06/02/24 9:50 AM Result Value Ventricular Rate 71 Atrial Rate 71 P-R Interval 168 QRS Duration 96 QT Interval 398 QTC Calculation (Bazett) 432 Calculated P Pioneer 36 Calculated R Pioneer 25 Calculated T Pioneer 4 Impression NORMAL SINUS RHYTHM INCOMPLETE RIGHT BUNDLE BRANCH BLOCK NONSPECIFIC T WAVE ABNORMALITY ABNORMAL ECG WHEN COMPARED WITH ECG OF 05-Jan-2024 13:06, NO SIGNIFICANT CHANGE WAS FOUND Confirmed by MD STEPHANIE, MAURIZIO () on 06/03/2024 10:31:40 AM No results found for this or any previous visit (from the past 78796 hour(s)). Instructions Given to Patient: Instructions located in the after visit summary. Patient given verbal and written preop instructions and voices comprehension and compliance. SIGNATURE: Moira Kenney APRN.CNP PATIENT NAME: Matt Baum DATE: November 04, 2024 TIME: 2:08 PM PAGER/CONTACT #: documented in this encounter [facility] 11-04-2024 Instructions Moira Kenney APRN.CNP - 11/04/2024 2:07 PM EST Images from the original note were not included. [facility] PATIENT PREOPERATIVE INSTRUCTIONS Praful Guajardo MD has scheduled you for your procedure at this surgery center: : [phone] -- [address] [place] [address]. Please read below carefully for your personalized instructions. Dietary Restrictions: - No solid food after midnight. - You may have 12 ounces of clear liquids (water, clear juices such as apple juice or gatorade, carbonated beverages, clear tea, black coffee, jello) until 2 hours before scheduled arrival at facility. Medications: Unless instructed differently below, stay on all of your medications until your surgery. If you start any new medications after today's visit, please contact your surgeon. Pre-Surgery Med Instructions Medication Instructions acetaminophen (TYLENOL EXTRA STRENGTH) 500 mg tablet IF needed enoxaparin (LOVENOX) 60 mg/0.6 mL syrg Do not take for 24 hours prior to surgery levothyroxine (LEVOXYL) 88 mcg tablet Take the day of surgery with a small sip of water potassium chloride 20 mEq TbER Take the day of surgery with a small sip of water If you start any new medications after today's visit, please contact the surgeon's office. If you are currently using a [id number] injectable or oral medication for diabetes or weight loss such as Dulaglutide (Trulicity), Exenatide (Byetta, Bydureon), Liraglutide (Victoza, Saxenda), Semaglutide (Ozempic, Wegovy, Rybelsus), or Tirzepatide (Mounjaro), the medicine should be stopped at least 7 days before surgery. These medicines can cause food to remain in your stomach for a very long time and increase the risks from surgery and anesthesia. Not stopping the medication for a long enough time may result in your surgery being rescheduled. Blood Thinning Medications: - Stop NSAIDS (Ibuprofen, Advil, Aleve, Motrin, Celebrex, Mobic, etc.) 7 days before surgery, as directed by your surgeon. - Stop Aspirin 7 days before surgery, as directed by your surgeon. - Stop ALL herbal and dietary supplements 7 days before surgery. - You may take Tylenol (Acetaminophen) or any of your pain medications that do not contain aspirin or NSAIDS as needed. Important Reminders: - Candy, mints, and tobacco products are NOT permitted the morning of surgery. - Hearing aids, dentures and glasses may be worn the morning of surgery. - NO jewelry, body piercings, makeup, hairpins or contacts are to be worn the day of surgery. If you develop symptoms such as a fever, cold, or flu, or have other changes to your health within TWO DAYS of scheduled surgery or the morning of surgery, please contact the surgery center above. Personal Belongings: -Please have photo ID and insurance cards. -If you do not have a copy of advance directives on file with us, please bring a copy with you on the day of surgery. - Leave ALL valuables and money at home or with family members. - Please bring high-quality footwear, such as sneakers, to the hospital for ambulating post-surgery. For Outpatient Procedures: - YOU MUST HAVE A RESPONSIBLE GROUP EXERCISE CLASS INSTRUCTOR TAKE YOU HOME. A LOAN AND CREDIT MANAGER OR PLASTERING SUPERVISOR CANNOT BE MADE A RESPONSIBLE GROUP EXERCISE CLASS INSTRUCTOR. - We recommend that a responsible person stays with you overnight to take care of you. - You cannot stay in a hotel alone after outpatient surgery. You will not be permitted to have your surgery, if you do not have someone to take care of you. Arrival Time for Surgery: - The Surgery Center or hospital where you are having surgery will call the afternoon before surgery (or Thursday for Thursday surgery) with a scheduled arrival time. - If you have not heard by 4 pm, please contact the surgery center above. Please be aware that emergency situations arise, which may delay or change your surgical time. If this happens, we will notify you as soon as possible and regret any inconvenience. If you already have an Advance Directive, please fax a copy to [phone] or email to for it to be added to your chart. If you do not have an Advance Directive, you can find the appropriate form and more information at [email or web address]. We recommend that you complete the Advance Directive form found on the website and bring it with you the day of your surgery. It can be witnessed and scanned into your chart that day. Moira Kenney APRN.MARCOS documented in this encounter [facility] 11-03-2024 History of Present illness Narrative Program_ID:[id number] Access Code: [email or web address] URL: [email or web address] Date: 11-03-2024 Prepared By: Estefania Benavides Program Notes Exercises - Doorway Pec Stretch at 60 Elevation - 1 x daily - 7 x weekly - 1 sets - 3 reps - Doorway Pec Stretch at 60 Degrees Abduction with Arm Straight - 1 x daily - 7 x weekly - 1 sets - 3 reps - Gentle Levator Scapulae Stretch - 1 x daily - 7 x weekly - 1 sets - 3 reps - Seated Gentle Upper Trapezius Stretch - 1 x daily - 7 x weekly - 1 sets - 3 reps Episode Visit Count: 1 Therapist That Will Accept/Oversee The Plan Of Care: Estefania Benavides Start of Care Date: 11/03/24 Onset Date: 11/03/19 Plan of Care Certification Date: 11/03/24 Next Certification Due Date: 12/15/24 Patient Identified by Name and Date of : Yes REHABILITATION AND SPORTS THERAPY PHYSICAL THERAPY EVALUATION PLAN OF CARE: Assessment: Matt Baum presents with diagnosis of TOS that interferes with lifting, recreational activities (spotting for gymnastics, folding laundry) . The patient presents with impairments in flexibility, independence in exercise, overall function, patient reported outcome measures, posture, strength, and symptom management. PROMIS (Patient-Reported Outcomes Measurement Information System) scores were reviewed and identified as a rehabilitation concern. Prognosis for therapy is Good due to: good overall health status, current objective clinical presentation, acuteness of condition, positive past response to therapy, within-session changes . The patient will benefit from skilled therapy services to meet the goals established for this plan of care as noted below. Classification Pain Mechanism Classification: Neuropathic Low Back Pain Classification: Functional Optimization Goals for Episode of Care: established 11/03/24 Independent in a Home Exercise Program. Maintain proper sitting posture throughout the session to allow for seated activities such as folding laundry without increased symptoms. Patient will increase flexibility of L Upper trapezius, levator scapulae, and pectoralis major/minor to WNL to improve ability to maintain proper posture. Patient Goals: reduced Time Frame for Goals and Treatment : 02/01/25 Planned Interventions, Frequency, and Duration: Current Frequency: 1x/week Duration: 12 weeks Total Number of Visits Planned: 12 Planned Treatment Interventions: Self-fdc management (68730), Therapeutic activities (82175), Manual therapy (95028), Neuromuscular re-education (89348), Therapeutic exercise (43245) PLAN FOR NEXT VISIT: continue stretching per MD order scanned in chart Patient demonstrates good understanding of plan of care and treatment. The above goals and plan of care were discussed and agreed upon by patient/family. SUBJECTIVE: for tingling in the arm with raising the arms above the shoulders. Pt. has been dx with B TOS and has a hx of a clotting disorder. Pt. has a PMHx of PE, UE DVT. and mentions hx of LE DVT. Pt. unable to lay on the L side for the past 5 years and she is now having the same trouble with laying on the right side. Cold weather bothers the neck, shoulder, and arm. Heating pad does help the L side neck pain. 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 Red Flags - Cervical Cervical Arterial Dysfunction Clinical Reasoning: No identified risk factors Cervical Myelopathy Diagnostic Rule: No identified risk factors. Spine History Symptoms Location at Onset: Neck Symptoms Since Onset: Worsening Pain is Worse Always: Lying (raising the arms) Pain is Better Always: Rest Sleep Affected by Pain: (She has a 1 yo) Pain: Pain Pain Level: 0 Pain Location: Arm - Left, Arm - Right Post Treatment Pain Post Treatment Pain Level: No Change Post Treatment Pain Location: Arm - Right, Arm - Left OBJECTIVE MEASURES WITH LEVEL OF FUNCTION: Posture / Alignment Posture: Forward head, Increased thoracic kyphosis Spine Observations L Cervical Spine Palpation Tenderness: Upper trapezius, Levator scapulae, Scalenes, Sternocleidomastoid, Paraspinals, Suboccipitals, Pectoralis minor Sensation - Lumbar Sensation: Grossly Intact Sensation - Cervical Spine Cervical Spine Sensation: Grossly Intact Cervical Spine ROM Cervical ROM : Limitation AROM Cervical Protrusion AROM: Normal Cervical Retraction AROM: Normal Cervical Flexion AROM: Normal Cervical Extension AROM: Normal, Produces (pain in the anterior neck) Cervical Side-Bend Right AROM: Moderate limitation (ear ringing, denies numbness or tingling) Cervical Side-Bend Left AROM: Normal Cervical Rotation Right AROM: Normal Cervical Rotation Left AROM: Normal, Produces (burning along the L posterolateral scapula) UE AROM R UE AROM: grossly WNL L UE AROM: grossly WNL UE Flexibility Flexibility: Upper Trapezius, Levator Scapulae, Pectoral Muscles L Upper Trapezius Flexibility Comments: limited L Levator Scapulae Flexibility Comments: limited L Pectorals Comments: limited Education: Education Learning Preferences: Demonstration, Explanation, Performance, Printed Materials Barriers: None Learning/educational needs: Plan of Care, Home exercise program, Posture Education Provided: Yes, see treatment interventions for education provided Education Provided To: Patient Education Mode/Type: Demonstration, Explanation/Discussion, Literature/Printed Materials, Performance Response to Education/Teach Back: States/Identifies, Return Demonstration TREATMENT: PT Treatment Interventions: Therapeutic Exercise, Self-Residential Management Evaluation Therapeutic Exercise: 1: *Access Code: [email or web address] URL: [email or web address] Date: 11/03/2024 Prepared by: Estefania Harris Exercises - Doorway Pec Stretch at 60 Elevation - 1 x daily - 7 x weekly - 1 sets - 3 reps - 30 hold - Doorway Pec Stretch at 60 Degrees Abduction with Arm Straight - 1 x daily - 7 x weekly - 1 sets - 3 reps - 30 hold - Gentle Levator Scapulae Stretch - 1 x daily - 7 x weekly - 1 sets - 3 reps - 30 hold - Seated Gentle Upper Trapezius Stretch - 1 x daily - 7 x weekly - 1 sets - 3 reps - 30 hold Skilled Intervention: Patient was educated in proper exercise technique and purpose for exercises. Skilled judgment was used in selection of appropriate interventions. Provided written instruction for home exercise program to facilitate proper performance and compliance. Correct performance of therapeutic exercises was facilitated with verbal, visual, and tactile cuing. Educated patient on rationale for performing exercises in regards to decreasing fatigue , increase ease of ADL, and ROM and function . Patient education as noted. Self-Residential Management: 1: discussed posture 2: discussed that neck movement doesn't seem to produce numbness/tingling but rather position of the arms above the shoulders 3: discussed goal of PT to improve neck and shoulder muscle mobility, but it may not resolve symptoms 4: discussed not stretching for durations or ranges that cause numbness/tingling, only a stretch in the muscle felt. Skilled Intervention: Skilled judgment in the selection of proper modification for activity of daily living/home management based on clinical presentation, deficits, and needs. Provided written instruction for activities of daily living techniques to facilitate proper performance and compliance. Reviewed patient specific diagnosis in relation to activities of daily living/home management. Activity progression based on professional judgement. Moderate verbal cues for maintaining neutral spine alignment. Provided written instruction for home program to facilitate proper performance and compliance. Correct performance of home program was facilitated with verbal, visual, and tactile cueing. Billing * Evaluation Low Complexity: 1 Unit Therapeutic Exercise Treatment Minutes: 10 Self-Care/Home Management Treatment Minutes: 13 Skilled Treatment Time Minutes (timed and untimed codes): 48 Total Session Time (minutes): 48 Session Start Time : 1012 Session Stop Time : 1100 Estefania Benavides PT documented in this encounter [facility] 11-03-2024 Note [facility] 11-01-2024 Note [facility] 11-01-2024 History of Present illness Narrative RN Pre Visit Questionnaire for upcoming [facility] appointment PROCEDURE : VENOGRAM EXTREMITY UPPER LEFT SURGEON : Praful Guajardo MD PROCEDURE DATE : 11/17/2024 PACC APPT : 11/04/2024 Do you see a brand marketing coordinator, circulating process inspector, clothing patternmaker or other specialist within or outside of [facility]? SPECIALISTS: HEMATOLOGY: Body Bumper: Dr Maria M Quarles DO, Last office visit 10/31/2024 Bleeding/clotting disorders (Factor ll Deficiency) VASCULAR: Nata Valle MD CACHORRO: 10/17/2024 PRIMARY CARE PHYSICIAN: Ravinder Babb MD; Leora Balderas CNP CACHORRO: 06/17/2024 Are you on an anticoagulant PACC Anticoagulant: Yes Medication : Lovenox (Enoxaparin) Stents: No Have you been provided instructions: No Letter sent : 11/01/[address] Quarles Anticoagulation recommendations : Found in EPIC on 11/01/2024 Provider : Dr Quarles Anticoagulation instructions : see full note in Epic Therapeutic dosing (1 mg/kg): administer the last dose 24 hours prior to the procedure. Implanted Devices: NONE Most recent EK06/02/2024 Most recent ECHO : 06/03/2024 EKG Scan on 06/02/2024 9:50 AM by Celia Mueller MD Any new changes in your symptoms since you last saw your specialist? No (Dx w/RSV early Oct but getting better, residual cough/congestion) Are you a Pre Diabetic/Diabetic/Weight loss/CHF medications No Dialysis No Skilled Facility Resident: no Any recent hospitalizations outside of [facility]? No Please bring complete, up to date list of medications when coming in for your PACC visit Instructions Given to Patient: Patient given verbal preop instructions and voices comprehension and compliance. SIGNATURE: Adry Oneill RN PATIENT NAME: Matt Baum DATE: November 01, 2024 TIME: 1:30 PM PAGER/CONTACT PHONE: documented in this encounter [facility] 11-01-2024 Note [facility] 11-01-2024 History of Present illness Narrative SOCIAL WORK FOLLOW UP NOTE: [facility] Date of service: October 31, 2024 Spoke with pt this date to discuss Lovenox assistance program. SW called [facility] for an update who reports pt is still being reviewed for the program. SW discussed this with pt who reports she has enough medication and will wait for update from SW. Sw and pt also discussed psychosocial concerns reported by pt. SW utilized active listening and empathy, assisted pt with problem solving and planning as possible. No other needs identified this date. RON Montero documented in this encounter [facility] 11-01-2024 Telephone encounter Note Patient notified. Will continue current dose. Audelia Garza LPN [facility] 11-01-2024 Miscellaneous Notes Patient notified. Will continue current dose. Audelia Garza LPN Can let her know yesterday's lab result indicates Lovenox dosing is correct. documented in this encounter [facility] 11-01-2024 Telephone encounter Note Can let her know yesterday's lab result indicates Lovenox dosing is correct. [facility] 10-31-2024 Telephone encounter Note Record ID: [id number] Patient name: Nicole Baum Date: October 31, 2024 - 02:09 Administered by: MADALYN Protocol: -> Great! Now we are in a secure chat environment. Protecting your health information is important to us. Ok, let's get started. Please verify your name and date of . Please click on the button with your first name. -> Nicole Got it. On to the next question... Select the button with your last name. -> Sarika Got it, thank you. Please enter your date of in MM/DD/YYYY format:(e.g., 10/23/1971 for Oct 23, 1971) -> 1990 Thank you for verifying your information. I'd like to ask you a few questions about how your recovery is going. Have there been any new or worsening symptoms since your last response? -> Yes And how have these symptoms changed since you first noticed them? -> Same To play it safe, your symptoms should be reviewed by a clinician. If you think this is a medical emergency, go to the nearest emergency room or call 911. Otherwise you can expect a call from a [facility] registered nurse within the next business day. Thank you for your time and for allowing us to care for you. Please be sure to reach out to your provider for any further symptoms or needs. Please rate your satisfaction with the care and support you have received from us since you have been home: (scale 1-5; 1 worst and 5 best) -> 5 Please tell me what you liked best about your experience: -> Thank you for your time and for allowing us to care for you. Please be sure to reach out to your provider for any further symptoms or needs. Please rate your satisfaction with the care and support you have received from us since you have been home: (scale 1-5; 1 worst and 5 best) -> 3 Please tell me what you liked best about your experience: -> txt checkins Please tell me what you liked least about your experience: -> the confusion around diagnosis and the up down rollercoaster [facility] 10-31-2024 Miscellaneous Notes Record ID: [id number] Patient name: Nicole Baum Date: October 31, 2024 - 02:09 Administered by: MADALYN Protocol: -> Great! Now we are in a secure chat environment. Protecting your health information is important to us. Ok, let's get started. Please verify your name and date of . Please click on the button with your first name. -> Nicole Got it. On to the next question... Select the button with your last name. -> Sarika Got it, thank you. Please enter your date of in MM/DD/YYYY format:(e.g., 10/23/1971 for Oct 23, 1971) -> 1990 Thank you for verifying your information. I'd like to ask you a few questions about how your recovery is going. Have there been any new or worsening symptoms since your last response? -> Yes And how have these symptoms changed since you first noticed them? -> Same To play it safe, your symptoms should be reviewed by a clinician. If you think this is a medical emergency, go to the nearest emergency room or call 911. Otherwise you can expect a call from a [facility] registered nurse within the next business day. Thank you for your time and for allowing us to care for you. Please be sure to reach out to your provider for any further symptoms or needs. Please rate your satisfaction with the care and support you have received from us since you have been home: (scale 1-5; 1 worst and 5 best) -> 5 Please tell me what you liked best about your experience: -> Thank you for your time and for allowing us to care for you. Please be sure to reach out to your provider for any further symptoms or needs. Please rate your satisfaction with the care and support you have received from us since you have been home: (scale 1-5; 1 worst and 5 best) -> 3 Please tell me what you liked best about your experience: -> txt checkins Please tell me what you liked least about your experience: -> the confusion around diagnosis and the up down rollercoaster documented in this encounter [facility] 10-31-2024 Telephone encounter Note Patient called back and scheduled a 3 month follow-up for 01/31/25 Keila Quigley [facility] 10-31-2024 Miscellaneous Notes Patient called back and scheduled a 3 month follow-up for 01/31/25 Keila Quigley Spoke with pt and she will call back to schedule OV. Shonna Fang [facility] today, here, @ 3:00- please make appointment. done OV in 3 months. documented in this encounter [facility] 10-31-2024 Telephone encounter Note Spoke with pt and she will call back to schedule OV. Shonna Fang [facility] 10-31-2024 Telephone encounter Note Labs today, here, @ 3:00- please make appointment. done OV in 3 months. [facility] Work Phone: 10-31-2024 Note [facility] 10-31-2024 History of Present illness Narrative Diagnosis: 1) Unprovoked PE. HPI: The patient is a 33-year-old female who had an unremarkable past medical history. 05/09/2019 was working outside when noticed extreme fatigue. Was prone to low K, so thought it might be that. When went to bed that evening had 'weird' sensation in left leg--burning. Also felt uneasy in the abdomen like was going to have diarrhea. Went to BR but no need for BM, but was very nauseated suddenly. Had visual dimming and burning sensation between shoulder blades. Was taken to ED morning of 05/10. CT of the chest on 05/10/2019 demonstrated focal pulmonary embolism in a subsegmental branch in the right upper lobe. It was nonocclusive. A venous duplex ultrasound on 05/10 demonstrated no evidence of left lower extremity DVT. There was a Jovel's cyst appreciated in the left popliteal fossa. Patient was discharged on Lovenox with instructions to transition to Coumadin. Presented back to the ED the next day with complaint of headache. CT of the brain showed normal unenhanced CT of the brain. Patient was given Reglan and Benadryl with improvement of the headache. She was discharged after improvement. Patient was seen again in the ER on 05/13 for complaints of nausea and not feeling well. No specific diagnosis. She was noted that she had a vasovagal episode after injecting herself Lovenox at morning. Was still on initial course of Lovenox when fist seen here. Coumadin dosing from 3 mg to 6 mg to 9 mg daily. INR 1.3. Coumadin had been making her nauseated. No family h/o VTE. Maternal GM had strokes. No use of OCPs. Was in the ED on 06/13/2019 with complaints of right lower extremity pain. Ultrasound was negative for DVT. She had remained on Eliquis. Was back in the ED on 08/22/2019 with complaints of shortness of breath. Workup included vitals, lab work consideration of CT but that was not done due to the fact that she was more comfortable in the ER and her vitals were normal. Was in the ED at [place] for complaint left arm tingling and heaviness. She presented because of her history of hyperkalemia in symptoms that had manifested similarly previously. Potassium was 4.1 mmol/L. Seen here last for [facility]. Delivered a healthy baby girl. She has continued to breast-feed so has remained on Lovenox. No unusual bleeding or unexplained bruising. No leg pain or swelling. No episodes of dyspnea or chest pain. Presents for ongoing hematologic management. OV 06/2024: Stopped AC 01/2024. Was spotting at gymnastics when she felt a pop near her left elbow and developed a lump. It receded after a day or 2 but then returned and she had pain up the arm. Went to the ED at [place]. US--acute appearing thrombus extending from left internal jugular vein through subclavian and axillary veins Resume Lovenox at 60 mg q 12 hours since was still breast feeding. Pain fluctuates, but no swelling. A week ago Thursday, developed lump anterior medial upper right thigh. Does not necessarily recall a specific injury but may have bumped the washing machine door. Lump has gotten larger and warmer and recently developed ecchymosis surrounding it. No other bleeding issues. Presents for ongoing hematologic management. Interim history: Admitted to [facility] 10/12 through 10/14/2024 for potential breakthrough left upper extremity DVT. Repeat ultrasound suggested chronic thrombus rather than acute DVT. She was discharged on Lovenox. She is scheduled to follow-up with vascular medicine and undergo venogram. More arm pain since discharge. Pain in anterior left axilla. No swelling. Would like to have LMWH assay to confirm it's working. PMH, medications and allergies personally reviewed by me today. Any changes documented in appropriate section. ROS: Constitutional: Denies episodes of fever and night sweats. Neuro: Denies MAR, vertigo, dizziness and imbalance. HEENT: No recent change in voice or hearing. Resp: Denies cough, wheeze and hemoptysis. CVS: Denies exertional chest pain, PND, orthopnea and LE edema. GI: Denies dysgeusia. Denies symptoms of stomatitis. Denies dysphagia and odynophagia. Denies reflux, n/v, change in bowel habits and abdominal pain. : Denies dysuria or gross hematuria. No symptoms of bladder outlet obstruction. Endo: Denies hot flashes. Denies polyuria and polydipsia. Denies heat and cold intolerance. Musculoskeletal: Denies bone, back, joint and muscular pain. Derm: Denies rash. Denies jaundice and diffuse pruritis. Heme: See above. Psych: Normal mood. PHYSICAL EXAM: Vitals: Blood pressure 107/76, pulse 73, temperature 36.8 C (98.3 F), temperature source Temporal, weight 54 kg (119 lb), last menstrual period 09/29/2024, SpO2 99%, currently . Well-appearing and in no acute distress. EYES: Sclerae are anicteric bilaterally. LYMPHATIC: There is no palpable cervical or supraclavicular or left axillary adenopathy. CARDIOVASCULAR: Rhythm is regular. ABDOMEN: The abdomen is nondistended. Extremities: No swelling left arm. There is tenderness without mass or swelling left pectoralis. SKIN: No jaundice. 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 -Heterozygous prothrombin gene mutation. -Developed left upper extremity DVT when off 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. -Now back on Lovenox after potential breakthrough thrombus on apixaban. -No longer breast-feeding. -No exam evidence new acute left arm DVT. -Scheduled for left upper extremity venogram to help rule out TOS. Plan: -Low medical weight heparin assay around 3:00 pm this afternoon. -Follow-up with vascular surgery. -Refill Lovenox. -OV in about 3 months. Portions of this documentation were copied and pasted from my previous office visit note dated 06/24/2024 in order to provide a cohesive continuity of the history. The note has been reviewed and edited and updated as necessary. Maria M Quarles DO documented in this encounter [facility] 10-25-2024 History of Present illness Narrative Images from the original note were not included. Heart, Vascular [facility] Thoracic [place] DEPARTMENT OF VASCULAR SURGERY OUTPATIENT VISIT DATE October 25, 2024 OUTPATIENT VISIT TYPE CONSULTATION PRIMARY CARE PHYSICIAN: Ravinder Babb MD REFERRING PROVIDER: Nata Valle [address] [facility] [address] Consult requested for an opinion regarding the evaluation and treatment of the above. My final impression and recommendations will be communicated back to the requesting physician by way of the shared medical record or letter via [place] mail. CHIEF COMPLAINT: vTOS HISTORY OF PRESENT ILLNESS: 33 year old female with a PMH & PSH as detailed below who presents today for evaluation of venous TOS. Chart Prep: Seen recently by Nata Valle who was suspicious of left upper extremity venous thoracic out syndrome. She documents a history of left IJ and axillosubclavian DVT dating back to May 2024. She had been on and off Eliquis and Lovenox since then. Most recently was admitted early October due to a popping sensation in her left arm. A duplex was completed at that time showing chronic prothrombotic changes in her left axillosubclavian vein. An APS panel was negative at that time and she was continued on her Lovenox. When she saw Dr. Valle, she reported ongoing burning pain over the left chest, shoulder, and upper arm. She has a baseline soreness and heaviness of the left arm as well as numbness and tingling of the arm whenever she lays on it. 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 Denies any family history of VTE. Never smoker. No drug use. Denies family history of aneurysm. Has been compliant with her 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 and currently is on lovenox 55mg BID. Also of note, she had a PE in [address] 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 She does believe that the patient requires lifelong 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, however, if her TOS is fixed, she would consider switching her back to Eliquis which she prefers. Patient reporting today: Description of presenting symptoms - she reports LUE aching and heaviness, numbness and tingling, and pain in her left shoulder, supraclavicular area, and lateral and anterior ribcage. She denies notable swelling of the LUE. H/o DVT -yes. 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 History of hypercoagulable conditions-heterozygous for prothrombin gene mutation. APS panel negative on 2 occasions. History of prior neck surgery or radiation - no H/o prior clavicle fracture - no AMBIENCE AI: The patient reports a history of left arm swelling and pain dating back to 2018, with significant escalation in May. She has undergone multiple ultrasounds with varying results. She has a known factor II mutation, heterozygous, and has experienced a PE. She was not on 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 from January to May, during which time she believes the clot developed. She describes a rib protrusion on one side and possible compression on the other. She reports tenderness above and below the clavicle on the left side. Swelling in the left arm has been consistent, not severe, but more pronounced than the right arm. Initially, pain originated in a specific area, followed by a pop and a bulge, with excruciating pain radiating upwards, prompting an ER visit. She notes discoloration in the area similar to when she had an acute clot in September. She recalls a blunt force trauma in September when she hit her arm on a doorknob, causing intense pain. She also had a spontaneous hematoma on her leg in June. She reports that the left arm feels firmer compared to the right. She experiences pressure under her ribs and back, and her pain has increased since leaving the hospital. She also reports left calf pain without known trauma. Vascular health status: Smoking status: never Anti-platelet/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 (if A/C - indication?): lovenox 55mg BID for DVT/PE Statin or PCSK9i: N/A Past Vascular Surgeries: N/A Other Non Vascular PMH/PSH: N/A Most recent cardiac testing (TTE, Stress, LHC): - 06/03/24 limited echo: Impression CONCLUSIONS: - Exam indication: Arrhythmia - The left ventricle is normal in size. Left ventricular systolic function is normal. EF = 58 5% (2D 4-ch.) Normal left ventricular diastolic function. - The right ventricle is normal in size. Right ventricular systolic function is normal. - Exam was compared with the prior echocardiographic exam performed on 12/17/2006. No images or report available for comparison. Care Team: Physician managing CV risk factors - Nata Valle Other - Ravinder Sands (PCP) MEDICATIONS: enoxaparin (LOVENOX) 60 mg/0.6 mL syrg Inject 0.55 mL subcutaneously two times a day. Inject entire contents of one(1) syringe levothyroxine (LEVOXYL) 88 mcg tablet Take 1 tablet by mouth once daily. Take on empty stomach. For Thyroid potassium chloride 20 mEq TbER Take 1 tablet by mouth once daily. albuterol HFA (PROVENTIL HFA, VENTOLIN HFA) 90 mcg/actuation inhaler Inhale 2 Puffs as instructed every 4 hours as needed for wheezing/shortness of breath. (Patient not taking: Reported on 10/25/2024) SOCIAL HISTORY: Social History Tobacco Use Smoking status: Never Smokeless tobacco: Never Tobacco comments: No smoking in family Vaping Use Vaping status: Never Used Substance Use Topics Alcohol use: Not Currently Drug use: No PAST MEDICAL HISTORY: PAST MEDICAL HISTORY Diagnosis Date Acquired hypothyroidism 10/21/2017 Anemia during in first trimester 10/16/2021 Jovel's cyst, left 05/10/2019 Biliary dyskinesia 12/08/2019 Factor II deficiency (HCC) Family history of defect 08/26/2021 08/26/2021. Patient son born with a cyst on the brain. It was surgically removed when he was 6 years old. 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 PE (pulmonary thromboembolism) (HCC) 05/10/2019 05/10/2019 Situational stress 01/31/2020 Thoracic outlet syndrome 10/25/2024 Vocal cord dysfunction Paradoxical VOCAL CORD DYSFUNCTION PAST SURGICAL HISTORY: PAST SURGICAL HISTORY Procedure Laterality Date APPENDECTOMY TONSILLECTOMY & ADENOIDECTOMY <AGE 12 1994 FAMILY HISTORY FAMILY HISTORY Problem Relation Age of Onset Stroke Father Alcohol abuse Father Psychiatry Mother BIPOLAR Thyroid Mother No Known Problems Sister No Known Problems Sister No Known Problems Sister No Known Problems Brother Arthritis Maternal Grandmother Heart Maternal Grandmother Osteoporosis Maternal Grandmother Stroke Maternal Grandmother other (Hypotension) Maternal Grandmother Heart Maternal Grandfather Hypertension Maternal Grandfather Alcohol/Drug Maternal Grandfather Psychiatry Maternal Grandfather BIPOLAR No Known Problems Paternal Grandmother No Known Problems Paternal Grandfather No Known Problems Daughter No Known Problems Daughter other (cyst on brain) Son No Known Problems Son No Ocular Disease No Family History ALLERGIES: ALLERGIES Allergen Reactions Pereira Pepper Anaphylaxis, Other: See Comments Latex Anaphylaxis, Hives Amoxicillin Hives, Swelling Banana Swelling Latex Hives Verified by skin testing Nubain [Nalbuphine * Rash Avocado Itching Carrot Itching [place] Derivati* Other: See Comments Kiwi Itching Hydroxyzine Other: See Comments Extreme fatigue Omeprazole Other: See Comments nausea Sertraline Other: See Comments Bruising, stopped by hematology 12/3022 was interacting with blood thinners REVIEW OF SYSTEM: Constitutional: No weight loss, malaise or fevers. HEENT: Negative for frequent or significant headaches, No changes in hearing or vision, no nose bleeds or other nasal problems Respiratory: Negative for cough, wheezing, or shortness of breath Cardiovascular: Positive for palpitations Gatrointestinal: Negative for abdominal discomfort, blood in stools or black stools or change in bowel habits Genitourinary: No history of dysuria, frequency, or incontinence Musculoskeletal: Positive for See HPI Endocrine: Negative for cold or heat intolerance, polyuria, polydipsia and goiter Hematology/Lymphatic: Negative for prolonged bleeding, bruising easily or swollen nodes and Positive for factor II deficiency Neurologic: No history or headaches, syncope, paralysis, seizures or tremors and Positive for numbness, tingling of LUE Integumentary: Negative for lesions, rash, and itching. PHYSICAL EXAM: VITALS: BP 115/64 Pulse 101 Resp 14 Ht 5' 3.5 (1.61m) Wt 114 lb (51.7kg) SpO2 98% LMP 09/29/2024 BMI 19.87 kg/(m^2). General: well-developed, well-nourished, appears well, no acute distress HEENT/PULSES: JVP not visible, no carotid bruit Chest: clear to auscultation bilaterally, normal inspiratory effort, no coughing or wheezing Heart: RRR, no heart murmur on auscultation Abdomen: soft, non-tender, non-distended Extremities: no edema, feet warm bilaterally, no wounds. Positive left upper extremity stress test; tender to palpation over left neck, supra and infraclavicular area on left Peripheral pulses: palpable femoral pulses bilaterally, palpable radial pulses. Negative Adson test Skin: warm, dry Neurologic: alert, oriented x 3 Psychiatric: normal affect, normal judgment, normal insight. DIAGNOSTIC TESTS REVIEWED FOR TODAY'S VISIT: LUE Venous duplex 10/17/24: IMPRESSION Compared to prior study of 10/14/2024, No significant change. Left subclavian chronic thrombus noted at proximal vessel on today's exam. RIGHT SIDE - DEEP VEINS Contralateral subclavian vein doppler lost due to technical error. LEFT SIDE - DEEP VEINS Chronic post-thrombotic change in the internal jugular vein at proximal. chronic thrombus versus fibrin sheath Chronic post-thrombotic change in the subclavian vein at proximal. Unable to compress vein due to clavicle. No evidence of subclavian venous thoracic outlet with maneuvers. 05/12/24 LUE venous duplex: IMPRESSION: Study is positive for acute appearing thrombus extending from left internal jugular vein through subclavian and axillary veins. CT Chest PE 06/02/24: IMPRESSION: No CT evidence of pulmonary embolism. No acute abnormality detected. CARDIOPULMONARY STUDIES: See HPI IMPRESSION: 33 year old female with Hx of PE (2018), DVT of left IJ, axillary, subclavian vein (on lovenox), hypothyroidism, factor II deficiency, and anxiety who presents with a 5 month history of LUE DVT with associated left arm aching and heaviness, numbness and tingling. She has had numerous DVT US scans of the LUE some of which show IJ, ax, and subclavian DVT where most recent imaging shows these vessels are patent and there are just chronic psot-thrombotic changes of the L IJ. Her symptoms are consistent with neurogenic TOS and suspicious for venous TOS. . PLAN and RECOMMENDATIONS: - Consented today for left arm venogram Further decisions regarding possible first rib resection to follow the results of venogram - Referral made for TOS physical therapy - Recommend continuing 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 per vascular medicine recommendations Thank you for the opportunity to contribute to Ms. Baum's care. Please do not hesitate to call with any questions or concerns. This note may have been partially generated using the Dragon voice recognition system as well as artificial intelligence technology. While every effort was made to correct voice recognition errors, kindly be aware that some errors may occasionally occur. Medical Decision Making: Problems: Moderate: New problem with uncertain prognosis Data: Unique source(s) for external note(s) reviewed: 1 Unique test result(s) reviewed: 3+ Discussed management or test w/ external physician/QHCP/source Risk: Moderate: Decision on minor surgery w/ risk factors and Drug management Medical Decision Making Level: 4 - Moderate [facility] [place] STAFF PHYSICIAN NOTE OF PERSONAL INVOLVEMENT IN CARE Vascular STAFF - Praful Guajardo MD I have reviewed the documentation above obtained and documented by the Resident and I have personally performed a face to face assessment of the patient and have personally participated in the dixon components of the visit which includes medical decision making. I have discussed the case and management of the patient's care with the patient and vascular medicine staff. The following comments revise or confirm relevant dixon components. 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 Her most recent venous duplex shows chronic postthrombotic changes in the axillary and subclavian vein. She does not have significant arm edema on exam today or chest wall collaterals. She does have significant tenderness to palpation over her supraclavicular space over her brachial plexus. She also has tenderness over her pectoralis minor space as well. She has a positive elevated arm stress test, having to stop after 30 seconds. She is on 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. She reports symptoms today of left arm heaviness and pain in her left neck shoulder and arm. Plan for left arm venogram. She can continue her 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. Based on this study, we will make a decision about surgery For the indication of venous thoracic out syndrome. If her vein is diseased but open, would recommend surgery to prevent her vein from occluding in the future. If her vein is occluded, it would depend on a discussion with her in the context of her neurogenic symptoms as well. Will set up for physical therapy as well today. Thank you for the opportunity to contribute to Ms. Baum's care. Please do not hesitate to call with any questions or concerns. This note may have been partially generated using the Tekmi voice recognition system as well as artificial intelligence technology. While every effort was made to correct voice recognition errors, kindly be aware that some errors may occasionally occur. STAFF PHYSICIAN: Praful Guajardo MD DATE OF SERVICE: October 25, 2024 TIME OF SERVICE: 9:36 AM documented in this encounter [facility] 10-25-2024 Note [facility] 10-24-2024 Miscellaneous Notes Record ID: [id number] Patient name: Nicole Baum Date: October 24, 2024 - Administered by: MADALYN Protocol: -> Great! Now we are in a secure chat environment. Protecting your health information is important to us. Ok, let's get started. Please verify your name and date of . Please click on the button with your first name. -> Nicole Got it. On to the next question... Select the button with your last name. -> Sarika Got it, thank you. Please enter your date of in MM/DD/YYYY format:(e.g., 10/23/1971 for Oct 23, 1971) -> 1990 Thank you for verifying your information. I'd like to ask you a few questions about how your recovery is going. Have you experienced any new or worsening symptoms since returning home? -> No I'm glad to hear that. Have you had a hospital follow-up appointment yet since your discharge? -> Yes documented in this encounter [facility] 10-24-2024 Telephone encounter Note Record ID: [id number] Patient name: Nicole Baum Date: October 24, 2024 - : Administered by: MADALYN Protocol: -> Great! Now we are in a secure chat environment. Protecting your health information is important to us. Ok, let's get started. Please verify your name and date of . Please click on the button with your first name. -> Nicole Got it. On to the next question... Select the button with your last name. -> Sarika Got it, thank you. Please enter your date of in MM/DD/YYYY format:(e.g., 10/23/1971 for Oct 23, 1971) -> 1990 Thank you for verifying your information. I'd like to ask you a few questions about how your recovery is going. Have you experienced any new or worsening symptoms since returning home? -> No I'm glad to hear that. Have you had a hospital follow-up appointment yet since your discharge? -> Yes [facility] 10-21-2024 Telephone encounter Note SOCIAL WORK FOLLOW UP NOTE: [facility] Date of service: October 21, 2024 Spoke with pt this who reports she needs to reschedule 10/[address] Quarles as she was able to get in short-notice with a vascular surgeon same date. Pt would appreciate a phone call to reschedule. Thank you, VINNY Montero-Rox [facility] 10-21-2024 Miscellaneous Notes SOCIAL WORK FOLLOW UP NOTE: [facility] Date of service: October 21, 2024 Spoke with pt this who reports she needs to reschedule 10/[address] Qaurles as she was able to get in short-notice with a vascular surgeon same date. Pt would appreciate a phone call to reschedule. Thank you, RON Montero documented in this encounter [facility] 10-21-2024 Telephone encounter Note SOCIAL WORK FOLLOW UP NOTE: [facility] Date of service: October 21, 2024 Matt Baum is being seen for a follow up social work visit. Today's visit includes: patient TOPICS ADDRESSED: SW spoke to pt this date regarding Lovenox assistance application. SW spoke to [employer] patient connections who reports pt's application remains under review. Pt also inquired about a possible change in provider managing her Lovenox - reporting she was referred to vascular surgery after another ER visit at the beginning of October. Sw discussed with pt about how to have new provider complete HCP portion of Lovenox application and send to [employer], no other updated needed. Pt unsure of new provider will take over prescription but is assuming she may. Sw asked pt to keep office informed, she reports she will. PLAN: Assist with financial support applications and Continue follow up as needed F/U APPOINTMENT: PRN Assigned APARNA listed in Care Team tab: Yes RON Montero [facility] 10-21-2024 Miscellaneous Notes [facility]IAL WORK FOLLOW UP [facility] Date of service: October 21, 2024 Matt Baum is being seen for a follow up social work visit. Today's visit includes: patient TOPICS ADDRESSED: SW spoke to pt this date regarding Lovenox assistance application. SW spoke to [employer] patient connections who reports pt's application remains under review. Pt also inquired about a possible change in provider managing her Lovenox - reporting she was referred to vascular surgery after another ER visit at the beginning of October. Sw discussed with pt about how to have new provider complete HCP portion of Lovenox application and send to [employer], no other updated needed. Pt unsure of new provider will take over prescription but is assuming she may. Sw asked pt to keep office informed, she reports she will. PLAN: Assist with financial support applications and Continue follow up as needed F/U APPOINTMENT: PRN Assigned APARNA listed in Care Team tab: Yes RON Montero documented in this encounter [facility] 10-20-2024 Telephone encounter Note Transitional Care Management (TCM) [facility] Monitoring Program Provider Action / FYI: na SUMMARY: Outreach type: INITIAL OUTREACH Discharge Network Status: In-Network Discharge Source of Patient: [facility] TCM Discharge Report Patient discharged from [facility] on 10.14.24. 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 Contact made with patient: Yes, for Initial Outreach Hi my name is Goldie Cadena and I am calling from the [facility] on behalf of your Primary Care Provider, Ravinder Babb MD. I understand you were recently in the hospital so I am calling to check in with you to ensure you are feeling well now that you are home. May I ask you a few questions related to your hospital stay and well-being? Yes Contact with patient post discharge, spoke to patient. Patient identified by name and . Symptoms: Do you feel your health is BETTER, WORSE, or the SAME since leaving the hospital? Better Action Taken: Patient indicated symptoms are better or same, no action required. Hospital Follow-Up Appointment: I would like to help you schedule a hospital follow-up visit with your Primary Care Provider (PCP). This is a great way for you to connect with your provider to ensure you have safely transitioned home. If you are agreeable, I will provide you with the Appointment Center phone number to speak with a medical records supervisor who can assist you with that appointment. This will give you an opportunity to ask any questions or address any concerns you may have with your Primary Care Provider. [Inform the patient that if they have any questions or concerns prior to that appointment, to call their PCP's office right away.] Action Taken: No action required, patient already has an appointment scheduled. Goldie Cadena October 20, 2024 9:51 AM [facility] 10-20-2024 Miscellaneous Notes Transitional Care Management (TCM) [facility] Monitoring Program Provider Action / FYI: na SUMMARY: Outreach type: INITIAL OUTREACH Discharge Network Status: In-Network Discharge Source of Patient: [facility] TCM Discharge Report Patient discharged from [facility] on 10.14.24. 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 Contact made with patient: Yes, for Initial Outreach Hi my name is Goldie Cadena and I am calling from the [facility] on behalf of your Primary Care Provider, Ravinder Babb MD. I understand you were recently in the hospital so I am calling to check in with you to ensure you are feeling well now that you are home. May I ask you a few questions related to your hospital stay and well-being? Yes Contact with patient post discharge, spoke to patient. Patient identified by name and . Symptoms: Do you feel your health is BETTER, WORSE, or the SAME since leaving the hospital? Better Action Taken: Patient indicated symptoms are better or same, no action required. Hospital Follow-Up Appointment: I would like to help you schedule a hospital follow-up visit with your Primary Care Provider (PCP). This is a great way for you to connect with your provider to ensure you have safely transitioned home. If you are agreeable, I will provide you with the Appointment Center phone number to speak with a medical records supervisor who can assist you with that appointment. This will give you an opportunity to ask any questions or address any concerns you may have with your Primary Care Provider. [Inform the patient that if they have any questions or concerns prior to that appointment, to call their PCP's office right away.] Action Taken: No action required, patient already has an appointment scheduled. Goldie Cadena October 20, 2024 9:51 AM documented in this encounter [facility] 10-18-2024 Telephone encounter Note Reason for call: Matt would like to schedule an appointment with Dr Praful Guajardo as per referral Home and cell number-[phone] Diagnosis-Thoracic Outlet Syndrome Gio Browning [facility] 10-18-2024 Miscellaneous Notes Reason for call: Matt would like to schedule an appointment with Dr Praful Guajardo as per referral Home and cell number-[phone] Diagnosis-Thoracic Outlet Syndrome Gio Browning documented in this encounter [facility] 10-18-2024 History of Present illness Narrative Images from the original note were not included. [facility] [place] Department of Cardiovascular Medicine VIRTUAL VIDEO VISIT ESTABLISHED OUTPATIENT VISIT SERVICE DATE: 10/18/2024 Patient: Matt Kellymavis SERVICE TIME: 7:43 AM : 1990 This is a virtual video visit. It required patient-provider interaction for the medical decision making as documented below. Matt Baum has consented to this video encounter. I have communicated my name and active licensure. The patient's identity and physical location were verified at the time of this visit. Either the patient or their legal shared services representative has been informed of the risks and benefits of -- and alternatives to -- treatment through a remote evaluation and consents to proceed with the evaluation remotely. Chief complaint: VTE Interval history: Last seen 10/17/23. Here to review results of testing. Notes that she developed significant numbness in the arms during TOS testing yesterday. History of present illness 10/17/23: Ms. Baum is a 33yo F hx hypothyroidism here to establish care for VTE. 05/2019 developed PE, no DVT. No transient risk factors. Was started on warfarin and then switched to apixaban. 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 APS panel negative. Was switched to enoxaparin during last [id number] and discontinued this 01/2024 due to concern that it was exacerbating a pereira pepper allergy. 05/2024 was admitted for new spontaneous L IJ, subclavian and axillary DVT, as well as reported L proximal DVT for which she was resumed enoxaparin. Several ED visits since then including 06/2024 for thigh hematoma after which she was switch to apixaban. Duplex negative for DVT. 08/04/24 presented to ED for new forearm pain where duplex was reportedly negative and she was continued on apixaban. 09/14/24 went back to ED after hitting her arm on a door knob. Duplex reported acute axillary DVT. Was switched back to enoxaparin. Presented to ED 09/29/24 due to to possible rash on enoxaparin. Was continued on enoxaparin. Most recently admitted 10/12-10/14/24 due to popping sensation in LUE. Duplex with chronic post thrombotic change. She was continued on enoxaparin. APS panel negative. Reports 100% compliance with all apixaban and enoxaparin doses in the past. Generally feeling well though still endorsing persistent burning pain at L upper chest/shoulder and upper arm. Reports a low level of baseline soreness and heaviness to the L arm. Notes numbness/tingling down the arm whenever she lays on it. Does not work out regularly. Played volleyball and basketball as a teenager. 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 No weight lifting. No family history of VTE. Never smoker. No drug use. , 5 children. 6 pregnancies including an 8 week miscarriage. 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 Patient son born with a cyst on the brain. It was surgically removed when he was 6 years old. 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 PE (pulmonary thromboembolism) (HCC) 05/10/2019 05/10/2019 Situational stress 01/31/2020 Vocal cord dysfunction Paradoxical VOCAL CORD DYSFUNCTION PAST SURGICAL HISTORY Procedure Laterality Date APPENDECTOMY TONSILLECTOMY & ADENOIDECTOMY <AGE 12 1994 FAMILY HISTORY Problem Relation Age of Onset Stroke Father Alcohol abuse Father Psychiatry Mother BIPOLAR Thyroid Mother No Known Problems Sister No Known Problems Sister No Known Problems Sister No Known Problems Brother Arthritis Maternal Grandmother Heart Maternal Grandmother Osteoporosis Maternal Grandmother Stroke Maternal Grandmother other (Hypotension) Maternal Grandmother Heart Maternal Grandfather Hypertension Maternal Grandfather Alcohol/Drug Maternal Grandfather Psychiatry Maternal Grandfather BIPOLAR No Known Problems Paternal Grandmother No Known Problems Paternal Grandfather No Known Problems Daughter No Known Problems Daughter other (cyst on brain) Son No Known Problems Son No Ocular Disease No Family History Social History Tobacco Use Smoking status: Never Smokeless tobacco: Never Tobacco comments: No smoking in family Vaping Use Vaping status: Never Used Substance Use Topics Alcohol use: Not Currently Drug use: No ALLERGIES Allergen Reactions Pereira Pepper Anaphylaxis, Other: See Comments Latex Anaphylaxis, Hives Amoxicillin Hives, Swelling Banana Swelling Latex Hives Verified by skin testing Nubain [Nalbuphine * Rash Avocado Itching Carrot Itching [place] Derivati* Other: See Comments Kiwi Itching Hydroxyzine Other: See Comments Extreme fatigue Omeprazole Other: See Comments nausea Sertraline Other: See Comments Bruising, stopped by hematology 12/3022 CURRENT MEDICATIONS levothyroxine (LEVOXYL) 88 mcg tablet Take 1 tablet by mouth once daily. Take on empty stomach. For Thyroid potassium chloride 20 mEq TbER Take 1 tablet by mouth once daily. albuterol HFA (PROVENTIL HFA, VENTOLIN HFA) 90 mcg/actuation inhaler Inhale 2 Puffs as instructed every 4 hours as needed for wheezing/shortness of breath. PHYSICAL EXAMINATION: VIDEO EXAM: (if completed, performed via video enabled technology) GENERAL: alert and appropriate, in no distress, well-hydrated, well nourished, and happy, smiling, interactive PATIENT ENTERED QUESTIONNAIRE SCORES 08/22/2019 PHQ-9 PHQ-2 Score 0 01/22/2024 11/08/2020 06/09/2018 PROMIS Global Health - (T-Scores - the mean of general population = 50. Five points is a clinically meaningful difference.) Physical T-Score 50.8 44.9 50.8 Mental T-Score 48.3 38.8 48.3 Labs: 10/14/24 Estimated Creatinine Clearance: 86.3 mL/min (based on SCr of 0.77 mg/dL). CBC normal Imaging: N/A Vascular studies: LE venous duplex 10/17/23: Compared to prior study of 10/14/2024, No significant change. Left subclavian chronic thrombus noted at proximal vessel on today's exam. RIGHT SIDE - DEEP VEINS Contralateral subclavian vein doppler lost due to technical error. LEFT SIDE - DEEP VEINS Chronic post-thrombotic change in the internal jugular vein at proximal. chronic thrombus versus fibrin sheath Chronic post-thrombotic change in the subclavian vein at proximal. Unable to compress vein due to clavicle. No evidence of subclavian venous thoracic outlet with maneuvers. UE PVR 10/17/23: Problem list: Recurrent VTE 05/2019 - PE, no transient risk factors. Started on apixaban. 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 Started on enoxaparin. 06/2024 - thigh hematoma. Switched to apixban. Duplex negative though images were of suboptimal quality. 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 Heterozygous prothrombin gene mutation Hypothyroidism Assessment/Plan: UE PVR with dampened waveforms only at position - unlikely physiologically significant. Unable to evaluate for venous compression on duplex due to clavicle overlying subclavian vein. Will still proceed with vascular surgery referral for vTOS (and possible nTOS). If they feel pt is a candidate for surgery, we would consider switching her back to apixaban down the line. Continue enoxaparin for now. Return pending vascular surgery consultation. Nata Valle MD, FS, RPVI Section of Vascular Medicine, [facility] documented in this encounter [facility] 10-18-2024 Note [facility] 10-17-2024 History of Present illness Narrative Images from the original note were not included. [facility] [place] Renetta Gastelum Department of Cardiovascular Medicine SECTION OF VASCULAR MEDICINE OUTPATIENT VISIT DATE October 17, 2024 OUTPATIENT VISIT TYPE CONSULTATION Name: Matt Baum Chief complaint: VTE History of present illness: Ms. Baum is a 33yo F hx hypothyroidism here to establish care for VTE. 05/2019 developed PE, no DVT. No transient risk factors. Was started on warfarin and then switched to apixaban. 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 APS panel negative. Was switched to enoxaparin during last [id number] and discontinued this 01/2024 due to concern that it was exacerbating a pereira pepper allergy. 05/2024 was admitted for new spontaneous L IJ, subclavian and axillary DVT, as well as reported L proximal DVT for which she was resumed enoxaparin. Several ED visits since then including 06/2024 for thigh hematoma after which she was switch to apixaban. Duplex negative for DVT. 08/04/24 presented to ED for new forearm pain where duplex was reportedly negative and she was continued on apixaban. 09/14/24 went back to ED after hitting her arm on a door knob. Duplex reported acute axillary DVT. Was switched back to enoxaparin. Presented to ED 09/29/24 due to to possible rash on enoxaparin. Was continued on enoxaparin. Most recently admitted 10/12-10/14/24 due to popping sensation in LUE. Duplex with chronic post thrombotic change. She was continued on enoxaparin. APS panel negative. Reports 100% compliance with all apixaban and enoxaparin doses in the past. Generally feeling well though still endorsing persistent burning pain at L upper chest/shoulder and upper arm. Reports a low level of baseline soreness and heaviness to the L arm. Notes numbness/tingling down the arm whenever she lays on it. Does not work out regularly. Played volleyball and basketball as a teenager. 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 No weight lifting. No family history of VTE. Never smoker. No drug use. , 5 children. 6 pregnancies including an 8 week miscarriage. 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 Patient son born with a cyst on the brain. It was surgically removed when he was 8 years old. 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 Allergies: ALLERGIES Allergen Reactions Pereira Pepper Anaphylaxis, Other: See Comments Latex Anaphylaxis, Hives Amoxicillin Hives, Swelling Banana Swelling Latex Hives Verified by skin testing Niesha [Nalbuphine * Rash Avocado Itching Carrot Itching [place]* Other: See Comments Kiwi Itching Hydroxyzine Other: See Comments Extreme fatigue Omeprazole Other: See Comments nausea Sertraline Other: See Comments Bruising, stopped by hematology 12/3022 Medications: Current Outpatient Medications Medication Sig Dispense Refill levothyroxine (LEVOXYL) 88 mcg tablet Take 1 tablet by mouth once daily. Take on empty stomach. For Thyroid 90 tablet 0 potassium chloride 20 mEq TbER Take 1 tablet by mouth once daily. 90 tablet 3 albuterol HFA (PROVENTIL HFA, VENTOLIN HFA) 90 mcg/actuation inhaler Inhale 2 Puffs as instructed every 4 hours as needed for wheezing/shortness of breath. 1 Each 3 No current facility-administered medications for this visit. Physical Examination: 10/17/24 0836 BP: 111/78 BP Site: Right Arm BP Position: Sitting BP Cuff Size: Regular Adult Pulse: 88 SpO2: 100% Weight: 52.7 kg (116 lb 3.2 oz) Height: 161.3 cm (5' 3.5) Gen: NAD, well developed, well nourished Neck: no bruits CV: RRR, nl s1s2, no m/r/g Resp: CTAB Ext: warm, no edema, dry Neuro: Aox3 Vascular: normal radial and ulnar pulse. Reproducible soreness/pain at L upper chest/shoulder with EAST test. Labs: 10/14/24 Estimated Creatinine Clearance: 86.3 mL/min (based on SCr of 0.77 mg/dL). CBC normal Imaging: CTPE 06/02/24: No CT evidence of pulmonary embolism. No acute abnormality detected. Vascular studies: LE venous duplex 06/02/24: Positive study for sub-acute proximal DVT in the left lower extremity. Negative study for calf DVT in the left and right lower extremities. Negative study for superficial thrombophlebitis in the imaged segments of the left and right lower extremities. Imaging personally reviewed. Chronic post thrombotic change noted at L CFV. LUE venous duplex 06/01/24: Study is positive for acute appearing thrombus extending from left internal jugular vein through subclavian and axillary veins. LUE venous duplex 08/04/24: No left upper extremity deep venous thrombus. LUE venous duplex 09/14/24: Positive study for acute DVT in the left upper extremity. Nondiagnostic study for superficial thrombophlebitis in the imaged segments of the left upper extremity. Acute appearing axillary DVT. LUE venous duplex 10/14/24: RIGHT SIDE - DEEP VEINS Spontaneous and respirophasic flow noted in the subclavian vein. LEFT SIDE - DEEP VEINS Negative for acute deep vein thrombosis. Chronic post-thrombotic change in the internal jugular vein at proximal. Chronic thrombus vs fibrin sheath. Chronic post-thrombotic change in the subclavian vein at mid. Chronic thrombus vs fibrin sheath noted mid to distal vessel. 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 Started on apixaban. 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 Started on enoxaparin. 06/2024 - thigh hematoma. Switched to apixban. Duplex negative though images were of suboptimal quality. 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 Heterozygous prothrombin gene mutation Hypothyroidism Assessment/Plan: 33yo F here to establish care for history of recurrent VTE as outlined above. All recent duplexes from the past year were personally reviewed. Based on my review, she has VTE events: unprovoked PE in 2018, as well as non-catheter associated LUE DVT 05/2024. There was additional concern that she developed a recurrent axillary DVT in 09/14/24, though I cannot say with 100% certainty that this was a true new event that represented apixaban failure given the severely suboptimal quality of images from duplexes 06/24/24 and 08/04/24 (which were reported negative). Duplex on 10/14/24 clearly shows patent axillary vein and chronic post thrombotic change in LIJ and subclavian. I am suspicious of vTOS, and possibly nTOS as well. If she truly has vTOS, that may be why she developed a recurrent DVT despite being compliant with apixaban. I do think she has an indication for lifelong 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 regardless however we discussed that if her TOS is fixed, then I would feel comfortable switching her back to apixaban, which she prefers. PVR and venous duplex with maneuvers ordered. Will call pt with results of testing and arrange f/u as needed. I spent a total of 1.5 hours on the date of the service which included [id number] patient care and reviewing the chart. Nata Valle MD, [facility], [facility] Section of Vascular Medicine, [facility] documented in this encounter [facility] 10-17-2024 Note [facility] 10-14-2024 Note HNO ID: [id number] Author: ANDRES HERNDON LSW Service: Care Management Author Type: Operator [employer] Type: Care Mgt Progress Note Filed: 10/14/2024 15:38 Note Text: CARE MANAGEMENT PROGRESS NOTE SERVICE DATE: 10/14/2024 SERVICE TIME: 3:36 PM LOS: 1 day Needs Prior to Discharge: To Be Determined;Other: See Comment;Discharge Transportation (medical clearance) EMR reviewed. Patient admitted for chronic deep vein thrombosis of left upper extremity. Patient is from home with spouse and children; spouse to transport at discharge. Patient is 100% HCAP until 12/13. CM assigned will continue to follow for discharge needs. SIGNATURE: TED Foster PATIENT NAME: Matt Baum DATE: October 14, 2024 TIME: 3:[address] [facility] 10-14-2024 Telephone encounter Note Telephone visit created to have patient go downstairs to vascular lab for improved images. [facility] 10-14-2024 Miscellaneous Notes Telephone visit created to have patient go downstairs to vascular lab for improved images. documented in this encounter [facility] 10-13-2024 Note HNO ID: [id number] Author: JETHRO WADDELL MD Service: Hospital Medicine Author Type: Physician Type: Progress Notes Filed: 10/13/2024 10:34 Note Text: SHORT HOSPITALIST PROGRESS NOTE PATIENT NAME: Matt Baum SERVICE DATE: 10/13/2024 SERVICE TIME: 10:31 AM Hospital Medicine/Primary Attending: Jethro Waddell MD NIGHT COVERAGE BETWEEN 5.30P-7.30A Page [id number] Patient seen and eval. Reviewed orders and HANDP from this AM. 33 y/o F admitted with propagation of LUE DVT to subclavian, left IJ, left axillary over past month. Previously concerned for treatment failure of eliquis (though unclear if appropriately loaded) and had difficulty achieving therapeutic INR. Hematology on consult. Heparin level therapeutic. - CTA chest W IVCON PE: No acute pulmonary embolism - US DVT LUE: Positive for acute deep vein thrombosis in the LEFT upper extremity involving lower aspect of the LEFT internal jugular vein, LEFT subclavian vein, and LEFT axillary vein. Propagation of thrombus when compared to 09/14/2024 (previously only identified in the LEFT axillary vein). Appears nonocclusive. Nondiagnostic study for superficial thrombophlebitis in the imaged segments of the left upper extremity Plan of care discussed with: Patient, RN SIGNATURE: Jethro Waddell MD DATE: October 13, 2024 TIME: 10:[address] [facility] 10-13-2024 Note SARS-COV-2 (AGENT OF COVID-19) RNA: Not detected INFLUENZA A RNA: Not detected INFLUENZA B RNA: Not detected RESPIRATORY SYNCYTIAL VIRUS (RSV) RNA: Detected [facility] Comment on above: Performed By: #### P [facility], [id number] #### [facility] CLIA [id number] [address] [place] [address] [place] 09-19-2024 History of Present illness Narrative Matt Baum 1990 09/19/2024 Diagnosis: 1) Unprovoked PE. HPI: The patient is a 33-year-old female who had an unremarkable past medical history. 05/09/2019 was working outside when noticed extreme fatigue. Was prone to low K, so thought it might be that. When went to bed that evening had 'weird' sensation in left leg--burning. Also felt uneasy in the abdomen like was going to have diarrhea. Went to BR but no need for BM, but was very nauseated suddenly. Had visual dimming and burning sensation between shoulder blades. Was taken to ED morning of 05/10. CT of the chest on 05/10/2019 demonstrated focal pulmonary embolism in a subsegmental branch in the right upper lobe. It was nonocclusive. A venous duplex ultrasound on 05/10 demonstrated no evidence of left lower extremity DVT. There was a Jovel's cyst appreciated in the left popliteal fossa. Patient was discharged on Lovenox with instructions to transition to Coumadin. Presented back to the ED the next day with complaint of headache. CT of the brain showed normal unenhanced CT of the brain. Patient was given Reglan and Benadryl with improvement of the headache. She was discharged after improvement. Patient was seen again in the ER on 05/13 for complaints of nausea and not feeling well. No specific diagnosis. She was noted that she had a vasovagal episode after injecting herself Lovenox at morning. Was still on initial course of Lovenox when fist seen here. Coumadin dosing from 3 mg to 6 mg to 9 mg daily. INR 1.3. Coumadin had been making her nauseated. No family h/o VTE. Maternal GM had strokes. No use of OCPs. Was in the ED on 06/13/2019 with complaints of right lower extremity pain. Ultrasound was negative for DVT. She had remained on Eliquis. Was back in the ED on 08/22/2019 with complaints of shortness of breath. Workup included vitals, lab work consideration of CT but that was not done due to the fact that she was more comfortable in the ER and her vitals were normal. Was in the ED at [place] for complaint left arm tingling and heaviness. She presented because of her history of hyperkalemia in symptoms that had manifested similarly previously. Potassium was 4.1 mmol/L. Seen here last for [place]. Delivered a healthy baby girl. She has continued to breast-feed so has remained on Lovenox. No unusual bleeding or unexplained bruising. No leg pain or swelling. No episodes of dyspnea or chest pain. Interval hx from 06/24/[address] Quarles's previous note. Stopped AC 01/2024. Was spotting at gymnastics when she felt a pop near her left elbow and developed a lump. It receded after a day or 2 but then returned and she had pain up the arm. Went to the ED at [place]. US--acute appearing thrombus extending from left internal jugular vein through subclavian and axillary veins Resume Lovenox at 60 mg q 12 hours since was still breast feeding. Pain fluctuates, but no swelling. A week ago Thursday, developed lump anterior medial upper right thigh. Does not necessarily recall a specific injury but may have bumped the washing machine door. Lump has gotten larger and warmer and recently developed ecchymosis surrounding it. No other bleeding issues. Presents for ongoing hematologic management. Interval Hx: Ms. Baum presents today for ED follow up for acute upper extremity DVT. She was evaluated in the ED on 09/14. 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 She reports that she has been taking Eliquis 5 mg BID no known missed doses. Prior to starting eliquis she was on lovenox injections as she was still breast feeding. Hematoma on hip - stopped all 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 Thursday - Thursday (06/24/24) Transitioned from lovenox, 3 day break 2/2 hematoma on hip, restarted eliquis 3 days later. ? If she was ever therapeautic on eliquis. No loading dose. Injury on sep 06 hit arm on doorknob - hurt for 4 days. [place] better for 2 days then severe pain restarted Sep 12-prompting her to go back to ED. US demonstrated a new acute DVT of Left upper ext. Denies any recent bleeding. No SOB, CP. She notes that she is anxious about continuing lovenox and requiring indefinite 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. Did not tolerate coumadin well. Difficult to achieve appropratie INR. Jun - very heavy periods, but back to normal in Aug. COVID in nov no recent illness. No fevers chills or NS. No vaccines. Restarted on lovenox No supplements or multi - no changes in medications Thyroid med and potassium EOD. Denies supplement or OTC. No dietary restrictions. Notes that she does regularly drink green smoothies, with kale and spinach PMH, medications and allergies personally reviewed by me today. Any changes documented in appropriate section. ROS: Constitutional: Denies episodes of fever and night sweats. All systems reviewed on 09/19/2024 with pertinent positives and negatives as outlined in the interval history. PHYSICAL EXAM: Vitals: Blood pressure 113/76, pulse 83, temperature 36.7 C (98.1 F), temperature source Temporal, weight 54 kg (119 lb), last menstrual period 06/15/2024, SpO2 100%, currently . Well-appearing and in no acute distress. SKIN: No jaundice. I have performed the physical exam today (09/19/2024) and have edited the note to correlate with current findings. ASSESSMENT/PLAN: (I82.A12) Acute deep vein thrombosis (DVT) of axillary vein of left upper extremity (HCC) (primary encounter diagnosis) (T14.8XXA) Hematoma (Z86.711) History of pulmonary embolism Assessment: -History of PE which may have been provoked. -History of heterozygous prothrombin gene mutation. -Had been on Lovenox for quite some time due to pregnancies and breast-feeding. - no longer - has 5 children -Developed left upper extremity DVT when off 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. - this was secondary to injury - repeat US in 06/2024 and 07/2024 were both negative for clot -Once back on Lovenox developed hematoma of the left thigh, started on eliquis 5mg BID 3 days after discharge from ED for hematoma. -she has been on eliquis 5 mg BID since with no known missed doses. -developed left upper extremity DVT after injuring arm on doorknob. She states that she was running down the stairs and hit her arm, was sore for several days, started to feel better, then pain intensified prompting her to go to ED. - discussed that we would technically consider a clot on eliquis to be an eliquis failure. Patient acknowledged - I do question if she was therapeutic on eliquis - patient questions structural issue with L arm vasculature, discussed possible ref to vasc med. Plan: -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 indefinitely. -dicussed with Dr. Quarles, would have her continue with lovenox at this time. - She does express concern re: assisted lovenox effects to BMD - will plan for f/u in [address]Masci Kait Stubbs, CHANTEL.DIRECTOR OF PUBLICATIONS I spent a total of 45 minutes on the date of the service which included preparing to see the patient, [id number] patient care, completing clinical documentation, obtaining and/or reviewing separately obtained history, and counseling and educating the patient/family/caregiver. Portions of this note including HPI, ROS, impression/plan may have been copied forward as to provide important historical information essential in contributing to medical decision making. Documentation has been reviewed and edited as necessary to support clinical decision making for today's visit and to reflect my own independent evaluation of this patient. documented in this encounter [facility] 09-19-2024 Note [facility] 09-16-2024 Telephone encounter Note Scheduled for the [facility] 09-16-2024 Miscellaneous Notes Scheduled for the Okay to see an MIXING OPERATOR. Desiree Solano RN EMERGENCY ROOM CALL BACK Today's date: September 15, 2024 Patient called in to schedule an OV with Dr. Quarles. Per ED notes, Acute DVT of the left upper extremity on ultrasound. Considered failure of Eliquis at this time. Did discuss with her certified registered locksmith oncologist to recommend switching back to Lovenox. Patient is amenable to this plan. Started on first dose of Lovenox here. Sent for prescription for Lovenox treatment dose twice daily. Advised to follow-up with her certified registered locksmith and oncologist next week for further evaluation and management. Amenable to plan as discussed. Discharged in good condition. PSS is asking if there is someone we can flip to accommodate patient. Desiree Solano RN documented in this encounter [facility] 09-16-2024 Telephone encounter Note Okay to see an MIXING OPERATOR. Desiree Solaon RN [facility] 09-16-2024 Telephone encounter Note Patient notified of results, verbalizes understanding of instructions. Linda Russo LPN [facility] 09-16-2024 Miscellaneous Notes Patient notified of results, verbalizes understanding of instructions. Linda Russo LPN Please let patient know I have sent in a prescription for 88mcg dose. She will need TSH rechecked in 2 months. Patient states that she is taking the medication every day States that it was decreased to 1/2 tablet daily back in Jun d/t having heart palpitations from medication. Has not had any with the lower dosing. She has also noticed that she is starting to lose her hair again though. She feels that she would do really well if she were to go back on the dose she had previously been on; 80mcg daily. Please review and advise. Linda Russo LPN Please let patient know her TSH is very high. Is she taking her medication? documented in this encounter [facility] 09-16-2024 Telephone encounter Note Please let patient know I have sent in a prescription for 88mcg dose. She will need TSH rechecked in 2 months. [facility] 09-16-2024 Telephone encounter Note Patient states that she is taking the medication every day States that it was decreased to 1/2 tablet daily back in Jun d/t having heart palpitations from medication. Has not had any with the lower dosing. She has also noticed that she is starting to lose her hair again though. She feels that she would do really well if she were to go back on the dose she had previously been on; 80mcg daily. Please review and advise. Linda Russo LPN [facility] 09-16-2024 Telephone encounter Note Please let patient know her TSH is very high. Is she taking her medication? [facility] 09-15-2024 Telephone encounter Note EMERGENCY ROOM CALL BACK Today's date: September 15, 2024 Patient called in to schedule an OV with Dr. Quarles. Per ED notes, Acute DVT of the left upper extremity on ultrasound. Considered failure of Eliquis at this time. Did discuss with her certified registered locksmith oncologist to recommend switching back to Lovenox. Patient is amenable to this plan. Started on first dose of Lovenox here. Sent for prescription for Lovenox treatment dose twice daily. Advised to follow-up with her certified registered locksmith and oncologist next week for further evaluation and management. Amenable to plan as discussed. Discharged in good condition. PSS is asking if there is someone we can flip to accommodate patient. Desiree Solano, ARIEL [facility] 09-14-2024 Telephone encounter Note Patient instructed to go to urgent care for an eval or contact PCP. Char Pugh LPN [facility] 09-14-2024 Miscellaneous Notes Patient instructed to go to urgent care for an eval or contact PCP. Char Pugh LPN Patient called in. She ran into a door with her left arm (that had clots in). No bruising when she injured it a week ago but today she is c/o pain on the opposite side of the arm where the injury happened. Patient is unable to bed arm to hold her phone to her ear (5 out of 10) for conversations. Please advise. Charito Lopez documented in this encounter [facility] 09-14-2024 Telephone encounter Note Patient called in. She ran into a door with her left arm (that had clots in). No bruising when she injured it a week ago but today she is c/o pain on the opposite side of the arm where the injury happened. Patient is unable to bed arm to hold her phone to her ear (5 out of 10) for conversations. Please advise. Charito Lopez [facility] 09-07-2024 Telephone encounter Note Prescription Refill Information The patient has been identified by name and date of : Yes Caregiver verified no other encounters exist for this prescription request: Yes Caregiver confirmed with patient/requestor that no other refills are due, in the near future, with this provider at this time: Yes The last office visit in the department: 05/10/2024 Does the patient have a future office visit with this provider/department: patient past due for physical. Requested Prescriptions Pending Prescriptions Disp Refills potassium chloride 20 mEq TbER 90 tablet 3 Sig: Take 1 tablet by mouth once daily. May Terrazas MA September 07, 2024 5:42 PM [facility] 09-07-2024 Miscellaneous Notes Prescription Refill Information The patient has been identified by name and date of : Yes Caregiver verified no other encounters exist for this prescription request: Yes Caregiver confirmed with patient/requestor that no other refills are due, in the near future, with this provider at this time: Yes The last office visit in the department: 05/10/2024 Does the patient have a future office visit with this provider/department: patient past due for physical. Requested Prescriptions Pending Prescriptions Disp Refills potassium chloride 20 mEq TbER 90 tablet 3 Sig: Take 1 tablet by mouth once daily. May Terrazas MA September 07, 2024 5:42 PM Nicole is calling Ravinder Babb MD today to request a Refill on the Potassium Chloride 20 mEq. Not in refill list. Please send to her [facility]. Patient has been identified by name and birthdate. Duration of symptoms: N/A Person calling: self Call patient at: at home [phone] (home) [phone] (cell) Was an appointment scheduled: No Closing statement: Results or non-symptom based questions: Thank you for calling [facility], your call will be returned within the next business day. Renetta Hoffmann documented in this encounter [facility] 09-07-2024 Telephone encounter Note Nicole is calling Ravinder Babb MD today to request a Refill on the Potassium Chloride 20 mEq. Not in refill list. Please send to her [facility]. Patient has been identified by name and birthdate. Duration of symptoms: N/A Person calling: self Call patient at: at home [phone] (home) [phone] (cell) Was an appointment scheduled: No Closing statement: Results or non-symptom based questions: Thank you for calling [facility], your call will be returned within the next business day. Renetta Hoffmann [facility] 09-06-2024 Telephone encounter Note Pt called to see if office could transfer rx for levothyroxine 125 mcg from [facility] to [facility]. Advised pt that a new rx request would need to go to provider and then be sent to [facility]. Pt reports she will go ahead and get the refill at [facility] for this month and call to have new rx sent to [facility] for next month. Monika Higuera LPN [facility] 09-06-2024 Miscellaneous Notes Pt called to see if office could transfer rx for levothyroxine 125 mcg from [facility] to [facility]. Advised pt that a new rx request would need to go to provider and then be sent to [facility]. Pt reports she will go ahead and get the refill at [facility] for this month and call to have new rx sent to [facility] for next month. Monika Higuera LPN Patient requesting the following medication Patient last seen 06/17/24 Future visit scheduled: no. documented in this encounter [facility] 09-06-2024 Telephone encounter Note Patient requesting the following medication Patient last seen 06/17/24 Future visit scheduled: no. [facility] 08-31-2024 Telephone encounter Note Faxed to [facility] this date, sent to internal scanning. RON Montero [facility] 08-31-2024 Miscellaneous Notes Faxed to [facility] this date, sent to internal scanning. RON Montero Thank you. Printed. Rx pended to print. Char Pugh LPN SOCIAL WORK FOLLOW UP NOTE: [facility] spoke to pt this date who reports she has about 1/2 a bottle of Eliquis left. Pt on assistance for Eliquis through [facility] - original script sent for 30 days by hospitalist. Pt out of refills at this time. Dr. Quarles [facility]ast[facility] [place] is needing a new printed script for Eliquis. Can you please include 11 refills for length of enrollment with [facility]? Thank you, RON Montero documented in this encounter [facility] 08-30-2024 Telephone encounter Note Thank you. Printed. [facility] 08-30-2024 Telephone encounter Note Rx pended to print. Char Pugh LPN [facility] 08-30-2024 Telephone encounter Note SOCIAL WORK FOLLOW UP NOTE: [facility] SW spoke to pt this date who reports she has about 1/2 a bottle of Eliquis left. Pt on assistance for Eliquis through [facility] - original script sent for 30 days by hospitalist. Pt out of refills at this time. Dr. Quarles [facility] is needing a new printed script for Eliquis. Can you please include 11 refills for length of enrollment with [facility]? Thank you, RON Montero [facility] 06-28-[address] [facility] Care Coordination FOLLOW-UP NOTE Patient identified by name and date of . YES Spoke to patient. Patient stated she is feeling fine right now, denies any of the discussed symptoms mentioned by Dr. Quarles. Care Coordination Plan: patient informed of Dr. Quarles's response, stated understanding. Desiree Solano RN June 28, 2024 Continuing monitoring. ED if experiences increasing headache, develops disequilibrium/imbalance, dizziness, visual changes, clouded thinking or vomiting. Maria M Quarles DO Patient is on Eliquis. Patient contacted the office to let Dr. Quarles know that her and her 7 y/o daughter bumped heads this morning (forehead), hard. Patient states she already didn't feel well this morning and already had a headache. She denies increasing headache pain, dizziness, visual changes or vomiting. She does say she's nauseated but thinks that's from being anxious. Char Pugh LPN documented in this encounter [facility] 06-28-[address] [facility] Care Coordination FOLLOW-UP NOTE Patient identified by name and date of . YES Spoke to patient. Patient stated she is feeling fine right now, denies any of the discussed symptoms mentioned by Dr. Quarles. Care Coordination Plan: patient informed of Dr. Quarles's response, stated understanding. Desiree Solano RN June 28, 2024 [facility] 06-28-2024 Telephone encounter Note Continuing monitoring. ED if experiences increasing headache, develops disequilibrium/imbalance, dizziness, visual changes, clouded thinking or vomiting. Maria M Quarles DO [facility] 06-28-2024 Telephone encounter Note Patient is on Eliquis. Patient contacted the office to let Dr. Quarles know that her and her 7 y/o daughter bumped heads this morning (forehead), hard. Patient states she already didn't feel well this morning and already had a headache. She denies increasing headache pain, dizziness, visual changes or vomiting. She does say she's nauseated but thinks that's from being anxious. Char Pugh LPN [facility] 06-24-2024 History of Present illness Narrative Diagnosis: 1) Unprovoked PE. HPI: The patient is a 33-year-old female who had an unremarkable past medical history. 05/09/2019 was working outside when noticed extreme fatigue. Was prone to low K, so thought it might be that. When went to bed that evening had 'weird' sensation in left leg--burning. Also felt uneasy in the abdomen like was going to have diarrhea. Went to BR but no need for BM, but was very nauseated suddenly. Had visual dimming and burning sensation between shoulder blades. Was taken to ED morning of 05/10. CT of the chest on 05/10/2019 demonstrated focal pulmonary embolism in a subsegmental branch in the right upper lobe. It was nonocclusive. A venous duplex ultrasound on 05/10 demonstrated no evidence of left lower extremity DVT. There was a Jovel's cyst appreciated in the left popliteal fossa. Patient was discharged on Lovenox with instructions to transition to Coumadin. Presented back to the ED the next day with complaint of headache. CT of the brain showed normal unenhanced CT of the brain. Patient was given Reglan and Benadryl with improvement of the headache. She was discharged after improvement. Patient was seen again in the ER on 05/13 for complaints of nausea and not feeling well. No specific diagnosis. She was noted that she had a vasovagal episode after injecting herself Lovenox at morning. Was still on initial course of Lovenox when fist seen here. Coumadin dosing from 3 mg to 6 mg to 9 mg daily. INR 1.3. Coumadin had been making her nauseated. No family h/o VTE. Maternal GM had strokes. No use of OCPs. Was in the ED on 06/13/2019 with complaints of right lower extremity pain. Ultrasound was negative for DVT. She had remained on Eliquis. Was back in the ED on 08/22/2019 with complaints of shortness of breath. Workup included vitals, lab work consideration of CT but that was not done due to the fact that she was more comfortable in the ER and her vitals were normal. Was in the ED at [place] for complaint left arm tingling and heaviness. She presented because of her history of hyperkalemia in symptoms that had manifested similarly previously. Potassium was 4.1 mmol/L. Seen here last for [facility]. Delivered a healthy baby girl. She has continued to breast-feed so has remained on Lovenox. No unusual bleeding or unexplained bruising. No leg pain or swelling. No episodes of dyspnea or chest pain. Presents for ongoing hematologic management. Interim history: Stopped AC 01/2024. Was spotting at gymnastics when she felt a pop near her left elbow and developed a lump. It receded after a day or 2 but then returned and she had pain up the arm. Went to the ED at [place]. US--acute appearing thrombus extending from left internal jugular vein through subclavian and axillary veins Resume Lovenox at 60 mg q 12 hours since was still breast feeding. Pain fluctuates, but no swelling. A week ago Thursday, developed lump anterior medial upper right thigh. Does not necessarily recall a specific injury but may have bumped the washing machine door. Lump has gotten larger and warmer and recently developed ecchymosis surrounding it. No other bleeding issues. PMH, medications and allergies personally reviewed by me today. Any changes documented in appropriate section. ROS: Constitutional: Denies episodes of fever and night sweats. Neuro: Denies MAR, vertigo, dizziness and imbalance. HEENT: No recent change in voice or hearing. Resp: Denies cough, wheeze and hemoptysis. CVS: Denies exertional chest pain, PND, orthopnea and LE edema. GI: Denies dysgeusia. Denies symptoms of stomatitis. Denies dysphagia and odynophagia. Denies reflux, n/v, change in bowel habits and abdominal pain. : Denies dysuria or gross hematuria. No symptoms of bladder outlet obstruction. Endo: Denies hot flashes. Denies polyuria and polydipsia. Denies heat and cold intolerance. Musculoskeletal: Denies bone, back, joint and muscular pain. Derm: Denies rash. Denies jaundice and diffuse pruritis. Heme: See above. Psych: Normal mood. PHYSICAL EXAM: Vitals: Blood pressure 105/79, pulse 89, temperature 36.6 C (97.9 F), temperature source Temporal, weight 53.8 kg (118 lb 8 oz), last menstrual period 05/23/2024, SpO2 99%, currently . Well-appearing and in no acute distress. EYES: Sclerae are anicteric bilaterally. LYMPHATIC: There is no palpable cervical or supraclavicular adenopathy. CARDIOVASCULAR: Rhythm is regular. ABDOMEN: The abdomen is nondistended. Extremities: No swelling left arm. Some tenderness along the medial aspect. There is a hematoma of the upper anterior medial left thigh. It is warm and there is surrounding erythema. Tender. SKIN: No jaundice. ASSESSMENT/PLAN: (I82.A12) Acute deep vein thrombosis (DVT) of axillary vein of left upper extremity (HCC) (primary encounter diagnosis) (T14.8XXA) Hematoma (Z86.711) History of pulmonary embolism Assessment: -History of PE which may have been provoked. -History of heterozygous prothrombin gene mutation. -Had been on Lovenox for quite some time due to pregnancies and breast-feeding. -Developed left upper extremity DVT when off 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. -Now back on Lovenox and has developed hematoma of the left thigh. -No longer breast-feeding. -We discussed ways to manage this but she is extremely nervous about holding 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 and prefers to go to the ED. Plan: -ED at [place]. -Apixaban indefinitely. Portions of this documentation were copied and pasted from previous office visit notes in order to provide a cohesive continuity of the history. The note has been reviewed and edited and updated as necessary. I spent a total of 20 minutes on the date of the service which included preparing to see the patient, [id number] patient care, completing clinical documentation, obtaining and/or reviewing separately obtained history, performing a medically appropriate examination, counseling and educating the patient/family/caregiver, ordering medications, tests, or procedures, communicating with other HCPs (not separately reported), and communicating results to the patient/family/caregiver. Maria M Quarles DO documented in this encounter [facility] 06-20-2024 Telephone encounter Note Record ID: [id number] Patient name: Nicole Baum Date: June 20, 2024 - 02:07 Administered by: MADALYN Protocol: -> Great! Now we are in a secure chat environment. Protecting your health information is important to us. Ok, let's get started. Please verify your name and date of . Please click on the button with your first name. -> Nicole Got it. On to the next question... Select the button with your last name. -> Sarika Got it, thank you. Please enter your date of in MM/DD/YYYY format:(e.g., 10/23/1971 for Oct 23, 1971) -> 1990 Thank you for verifying your information. I'd like to ask you a few questions about how your recovery is going. Have there been any new or worsening symptoms since your last response? -> No I'm glad to hear that. Thank you for your time and for allowing us to care for you. Please be sure to reach out to your provider for any further symptoms or needs. Please rate your satisfaction with the care and support you have received from us since you have been home: (scale 1-5; 1 worst and 5 best) -> 4 Please tell me what you liked best about your experience: -> the check in! Please tell me what you liked least about your experience: -> vague responses [facility] 06-20-2024 Miscellaneous Notes Record ID: [id number] Patient name: Nicole Baum Date: June 20, 2024 - 02:07 Administered by: MADALYN Protocol: -> Great! Now we are in a secure chat environment. Protecting your health information is important to us. Ok, let's get started. Please verify your name and date of . Please click on the button with your first name. -> Nicole Got it. On to the next question... Select the button with your last name. -> Sarika Got it, thank you. Please enter your date of in MM/DD/YYYY format:(e.g., 10/23/1971 for Oct 23, 1971) -> 1990 Thank you for verifying your information. I'd like to ask you a few questions about how your recovery is going. Have there been any new or worsening symptoms since your last response? -> No I'm glad to hear that. Thank you for your time and for allowing us to care for you. Please be sure to reach out to your provider for any further symptoms or needs. Please rate your satisfaction with the care and support you have received from us since you have been home: (scale 1-5; 1 worst and 5 best) -> 4 Please tell me what you liked best about your experience: -> the check in! Please tell me what you liked least about your experience: -> vague responses documented in this encounter [facility] 06-17-2024 Note Addended by: LEORA BALDERAS on: 06/17/2024 10:14 AM Modules accepted: Orders [facility] 06-17-2024 Miscellaneous Notes Addended by: LEORA BALDERAS on: 06/17/2024 10:14 AM Modules accepted: Orders documented in this encounter [facility] 06-17-2024 History of Present illness Narrative Chief Complaint Patient presents with: Hospital F/U HPI Matt Baum is a 33 year old female who presents here today for Above Complaints.. Patient presents for hospital follow up. Patient was found to have DVT in her left upper extremity and left lower extremity. 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 Patient quit taking lovenox in January due to frequent food allergies and reading that anticoagulants can increase histamine response. Patient was restarted on lovenox BID prior to hospital d/c and has f/u with Dr. Quarles in 1 week. Past medical history, appointments, medications, allergies reviewed. Previous Medical History PAST MEDICAL HISTORY Diagnosis Date Acquired hypothyroidism 10/21/2017 Anemia during in first trimester 10/16/2021 Jovel's cyst, left 05/10/2019 Biliary dyskinesia 12/08/2019 Factor II deficiency (HCC) Family history of defect 08/26/2021 08/26/2021. Patient son born with a cyst on the brain. It was surgically removed when he was 6 years old. 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 PE (pulmonary thromboembolism) (HCC) 05/10/2019 05/10/2019 Situational stress 01/31/2020 Vocal cord dysfunction Paradoxical VOCAL CORD DYSFUNCTION Previous Surgical History PAST SURGICAL HISTORY Procedure Laterality Date APPENDECTOMY TONSILLECTOMY & ADENOIDECTOMY <AGE 12 1994 Family History FAMILY HISTORY Problem Relation Age of Onset Stroke Father Alcohol abuse Father Psychiatry Mother BIPOLAR Thyroid Mother No Known Problems Sister No Known Problems Sister No Known Problems Sister No Known Problems Brother Arthritis Maternal Grandmother Heart Maternal Grandmother Osteoporosis Maternal Grandmother Stroke Maternal Grandmother other (Hypotension) Maternal Grandmother Heart Maternal Grandfather Hypertension Maternal Grandfather Alcohol/Drug Maternal Grandfather Psychiatry Maternal Grandfather BIPOLAR No Known Problems Paternal Grandmother No Known Problems Paternal Grandfather No Known Problems Daughter No Known Problems Daughter other (cyst on brain) Son No Known Problems Son No Ocular Disease No Family History Patient Allergies ALLERGIES Allergen Reactions Pereira Pepper Anaphylaxis, Other: See Comments Latex Anaphylaxis, Hives Amoxicillin Hives, Swelling Banana Swelling Latex Hives Verified by skin testing Nubain [Nalbuphine * Rash Avocado Itching Carrot Itching [place] And Derivati* Other: See Comments Kiwi Itching Hydroxyzine Other: See Comments Extreme fatigue Omeprazole Other: See Comments nausea Sertraline Other: See Comments Bruising, stopped by hematology 12/3022 Current Medications Current Outpatient Medications on File Prior to Visit Medication Sig apixaban (ELIQUIS DVT-PE TREAT 30D START) 5 mg (74 tabs) Take 2 tablets (10 mg) by mouth twice daily for 7 days. Then take 1 tablet (5 mg) by mouth twice daily for 23 days enoxaparin (LOVENOX) 60 mg/0.6 mL syrg Inject 0.5 mL subcutaneously every 12 hours for 14 days. apixaban (ELIQUIS) 5 mg tab(s) Take 1 tablet by mouth two times a day. levothyroxine (SYNTHROID) 125 mcg tablet Take 1 tablet by mouth once daily. albuterol HFA (PROVENTIL HFA, VENTOLIN HFA) 90 mcg/actuation inhaler Inhale 2 Puffs as instructed every 4 hours as needed for wheezing/shortness of breath. No current facility-administered medications on file prior to visit. Social History Social History Tobacco Use Smoking status: Never Smokeless tobacco: Never Tobacco comments: No smoking in family Vaping Use Vaping status: Never Used Substance Use Topics Alcohol use: Not Currently Drug use: No Review of Symptoms REVIEW OF SYSTEMS SEE HPI EXAM: BP 109/74 Pulse 72 Resp 14 Wt 53.5 kg (118 lb) LMP 05/23/2024 (Approximate) BMI 20.25 kg/m General Appearance: Well appearing, alert, in no acute distress, well-hydrated, well nourished. Lungs: Lungs clear to auscultation. No wheezing, rhonchi, rales.. Heart: RRR without murmur, gallop, or rubs. No ectopy. Extremities: No deformities, edema, skin discoloration, clubbing or cyanosis. Good capillary refill. Peripheral Pulses: Normal. Health Maintenance List Depression Screening Never done Covid-19 Vaccine(2022- season) Never done Cervical Cancer Screening due on 07/14/2024 Annual PCP Team Chronic Disease Visit due on 05/31/2025 DTaP,Tdap,Td Vaccine(7 - Td or Tdap) due on 06/30/2026 Hepatitis B Vaccine Completed Hepatitis C Screening Completed HIV Screening Completed HPV Vaccine Aged Out Influenza Vaccine Discontinued ASSESSMENT/PLAN: 1. Acute deep vein thrombosis (DVT) of proximal vein of left lower extremity (HCC) - ICD9: 453.41, ICD10: I82.4Y2 (primary diagnosis) -Continue lovenox until follow up with Dr. Quarles 06/24 2. Acute deep vein thrombosis (DVT) of axillary vein of left upper extremity (HCC) - ICD9: 453.84, ICD10: I82.A12 -Continue lovenox until follow up with Dr. Quarles 06/24 Leora Balderas APRN.DIRECTOR OF PUBLICATIONS documented in this encounter [facility] 06-15-2024 Telephone encounter Note Patient informed of Dr. Quarles's response, stated understanding. Desiree Solano RN [facility] 06-15-2024 Miscellaneous Notes Patient informed of Dr. Quarles's response, stated understanding. Desiree Solano RN Recommend warm compresses several times a day. No heavy lifting. Maria M Quarles DO [facility] Care Coordination FOLLOW-UP NOTE Patient identified by name and date of . YES Spoke to patient Summary: (Reason for follow-up) Concerns: (New Barriers to care) Patient is concerned that the arm pain is not improving, has new LLE pain. GENERALIZED PAIN Where is the pain? All along my left arm and into my neck and collarbone. My one leg is starting to hurt too and it hasn't been hurting left leg. When did you first notice the pain? Arm pain has been constant since she was diagnosed with the blood clot. LLE pain started yesterday. Rates the pain 6-7/10 this morning. How intense is the pain right now (scale of 1-10)? 6-7/10, goes down to a 2/10 if she takes tylenol. How do you describe the pain: burning and stabbing Does the pain radiate anywhere? Left arm pain goes into neck/collarbone and left leg in her calf on the inside where my calf meets my shinbone Has the pain changed since it started? Arm pain has been consistent. Leg pain has improved compared to this morning. Is the pain constant or intermittent? Constant What makes it better? Tylenol What makes it worse? Using it. Spotting kids at gymnastics class or picking up random pieces of clothing laying around. Patient stated bending or twisting her arm a certain way exacerbates the pain. What are you taking anything for the pain? Tylenol Are you doing anything else to help with the pain other than medications? (heat, cold, movement, stretching, etc) patient stated she was not instructed on using heat or ice. The swelling might be a little bit worse in her arm however she said she had minimal swelling to begin with. Denies redness or bruising or the skin being warm to touch. Denies fever or chills. Care Coordination Plan: will follow-up after speaking with Dr. Willam Solano RN June 15, 2024 [facility] Care Coordination FOLLOW-UP NOTE Care Coordination Plan: patient returned call and left a VM. Called patient back, there was no answer, left a VM requesting for a call back. Desiree Solano RN June 15, 2024 [facility] Care Coordination FOLLOW-UP NOTE Care Coordination Plan: patient requested a call back because she has some medical questions. Called patient, no answer, left a VM requesting a call back. Desiree Solano RN June 15, 2024 documented in this encounter [facility] 06-15-2024 Telephone encounter Note Recommend warm compresses several times a day. No heavy lifting. Maria M Quarles DO T [facility] 06-15-2024 Telephone encounter Note [facility] Care Coordination FOLLOW-UP NOTE Patient identified by name and date of . YES Spoke to patient Summary: (Reason for follow-up) Concerns: (New Barriers to care) Patient is concerned that the arm pain is not improving, has new LLE pain. GENERALIZED PAIN Where is the pain? All along my left arm and into my neck and collarbone. My one leg is starting to hurt too and it hasn't been hurting left leg. When did you first notice the pain? Arm pain has been constant since she was diagnosed with the blood clot. LLE pain started yesterday. Rates the pain 6-7/10 this morning. How intense is the pain right now (scale of 1-10)? 6-7/10, goes down to a 2/10 if she takes tylenol. How do you describe the pain: burning and stabbing Does the pain radiate anywhere? Left arm pain goes into neck/collarbone and left leg in her calf on the inside where my calf meets my shinbone Has the pain changed since it started? Arm pain has been consistent. Leg pain has improved compared to this morning. Is the pain constant or intermittent? Constant What makes it better? Tylenol What makes it worse? Using it. Spotting kids at gymnastics class or picking up random pieces of clothing laying around. Patient stated bending or twisting her arm a certain way exacerbates the pain. What are you taking anything for the pain? Tylenol Are you doing anything else to help with the pain other than medications? (heat, cold, movement, stretching, etc) patient stated she was not instructed on using heat or ice. The swelling might be a little bit worse in her arm however she said she had minimal swelling to begin with. Denies redness or bruising or the skin being warm to touch. Denies fever or chills. Care Coordination Plan: will follow-up after speaking with Dr. Willam Solano RN June 15, 2024 [facility] 06-15-2024 Telephone encounter Note Abdiel Care Coordination FOLLOW-UP NOTE Care Coordination Plan: patient returned call and left a VM. Called patient back, there was no answer, left a VM requesting for a call back. Desiree Solano RN June 15, 2024 [facility] 06-15-2024 Telephone encounter Note Abdiel Care Coordination FOLLOW-UP NOTE Care Coordination Plan: patient requested a call back because she has some medical questions. Called patient, no answer, left a VM requesting a call back. Desiree Solano RN June 15, 2024 [facility] 06-13-2024 Telephone encounter Note Record ID: [id number] Patient name: Nicole Baum Date: June 13, 2024 - 02:15 Administered by: MADALYN Protocol: -> Great! Now we are in a secure chat environment. Protecting your health information is important to us. Ok, let's get started. Please verify your name and date of . Please click on the button with your first name. -> Nicole Got it. On to the next question... Select the button with your last name. -> Sarika Got it, thank you. Please enter your date of in MM/DD/YYYY format:(e.g., 10/23/1971 for Oct 23, 1971) -> 1990 Thank you for verifying your information. I'd like to ask you a few questions about how your recovery is going. Have you experienced any new or worsening symptoms since returning home? -> No I'm glad to hear that. Have you had a hospital follow-up appointment yet since your discharge? -> No [facility] 06-13-2024 Miscellaneous Notes Record ID: [id number] Patient name: Nicole Baum Date: June 13, 2024 - 02:15 Administered by: MADALYN Protocol: -> Great! Now we are in a secure chat environment. Protecting your health information is important to us. Ok, let's get started. Please verify your name and date of . Please click on the button with your first name. -> Niocle Got it. On to the next question... Select the button with your last name. -> Sarika Got it, thank you. Please enter your date of in MM/DD/YYYY format:(e.g., 10/23/1971 for Oct 23, 1971) -> 1990 Thank you for verifying your information. I'd like to ask you a few questions about how your recovery is going. Have you experienced any new or worsening symptoms since returning home? -> No I'm glad to hear that. Have you had a hospital follow-up appointment yet since your discharge? -> No documented in this encounter [facility] 06-09-2024 Telephone encounter Note Per Dr. Quarles- patient is to increase Lovenox to 60 mg Q 12 hours and follow up with PCP office regarding palpitations. Patient notified and verbalized understanding. Instructed patient on S/S of when to return to ER. Char Pugh LPN [facility] 06-09-[address] Quarles- patient is to increase Lovenox to 60 mg Q 12 hours and follow up with PCP office regarding palpitations. Patient notified and verbalized understanding. Instructed patient on S/S of when to return to ER. Char Pugh LPN Was in ER the other day felt spacey felt a pop and saw a bulge in the arm went to ER was told she had a DVT. Was kept inpatient. She states she is on Lovenox 50 mg BID. Waiting for Eliquis to get delivered. today she calls stating she is having palpitations that are waking her up. She had no palpitations while she was in the hospital. She has not slept well. Pulse 60 and regular while on the phone. Denies chest pain today, did have some Thursday, laid down and it subsided. The palpitations are concerning her. Has F/U on 06/17 with Dionicio Balderas MIXING OPERATOR. Denies any SOB. Still having arm pain in the left arm. It seemed better earlier in the week, but the pain came back last night. Feels burning near the left collar bone up into neck. No diaphoresis. She was not given any restrictions upon D/C. Yesterday she was at the gym for preschool gymnastics class, had to move floor mats around and spot kids during class. She states this caused her pain. Took Tylenol 0430 this AM. She wonders if the pain she is experiencing today is from being at the gym class yesterday and possibly holding her arm in a gaurded position and not relaxing the arm and shoulder. Using Tylenol PRN and heat. She has a F/U with Dr Quarles on 06/24. Left a message instructing patient to check her MyChart. Char Pugh LPN I had told the hospitalist to discharge her on Eliquis. Looks like it was prescribed properly. No need for follow-up sooner. Maria M Quarles DO 06/02/2024- Positive study for sub-acute proximal DVT in the left lower extremity. Went off 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 in January 2024. Char Pugh LPN Patient was at [facility] for blood clot. She is asking if she needs a hospital follow up prior to scheduled appointment on 06/24. documented in this encounter [facility] 06-09-2024 Telephone encounter Note Was in ER the other day felt spacey felt a pop and saw a bulge in the arm went to ER was told she had a DVT. Was kept inpatient. She states she is on Lovenox 50 mg BID. Waiting for Eliquis to get delivered. today she calls stating she is having palpitations that are waking her up. She had no palpitations while she was in the hospital. She has not slept well. Pulse 60 and regular while on the phone. Denies chest pain today, did have some Thursday, laid down and it subsided. The palpitations are concerning her. Has F/U on 06/17 with Dionicio Bladeras MIXING OPERATOR. Denies any SOB. Still having arm pain in the left arm. It seemed better earlier in the week, but the pain came back last night. Feels burning near the left collar bone up into neck. No diaphoresis. She was not given any restrictions upon D/C. Yesterday she was at the gym for preschool gymnastics class, had to move floor mats around and spot kids during class. She states this caused her pain. Took Tylenol 0430 this AM. She wonders if the pain she is experiencing today is from being at the gym class yesterday and possibly holding her arm in a gaurded position and not relaxing the arm and shoulder. Using Tylenol PRN and heat. She has a F/U with Dr Quarles on 06/24. [facility] 06-07-2024 Telephone encounter Note Left a detailed message on pt's answering machine. Jeanine Cunningham LPN [facility] 06-07-2024 Miscellaneous Notes Left a detailed message on pt's answering machine. Jeanine Cunningham LPN Half dose. Pt notified of provider message. Pt is asking if she is supposed to take the whole dose she was on for levothyroxine 125 mcg or the half dose the hospital put her on. Monika Higuera LPN Left message for patient to return call to office Sumi Stein MA Echo is normal. Continue current dosing of levothyroxine. Will discuss at upcoming appt. Pt calling in to get the followin)echo results from when she was in the hospital 2)while in the hospital her Levothyroxine was decreased to 1/2 tablet daily. Medication was decreased because they though pt's medication was messing with her heart. Problems are still going on even though the medication was decreased. Pt would like to know what to do this this also. Continue on the 1/2 dose or what to do. Please advise pt on above. Jeanine Cunningham LPN documented in this encounter [facility] 06-07-2024 Telephone encounter Note Half dose. [facility] 06-07-2024 Telephone encounter Note Pt notified of provider message. Pt is asking if she is supposed to take the whole dose she was on for levothyroxine 125 mcg or the half dose the hospital put her on. Monika Higuera LPN [facility] 06-07-2024 Telephone encounter Note Left message for patient to return call to office Sumi Stein MA [facility] 06-07-2024 Telephone encounter Note Left a message instructing patient to check her MyChart. Char Pugh LPN [facility] 06-07-2024 Telephone encounter Note I had told the hospitalist to discharge her on Eliquis. Looks like it was prescribed properly. No need for follow-up sooner. Maria M Quarles DO [facility] 06-07-2024 Telephone encounter Note Echo is normal. Continue current dosing of levothyroxine. Will discuss at upcoming appt. [facility] 06-07-2024 Telephone encounter Note 06/02/2024- Positive study for sub-acute proximal DVT in the left lower extremity. Went off 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 in January 2024. Char Pugh LPN [facility] 06-07-2024 Telephone encounter Note Patient was at [facility] for blood clot. She is asking if she needs a hospital follow up prior to scheduled appointment on 06/24. [facility] Work Phone: 06-07-2024 Telephone encounter Note Pt calling in to get the followin)echo results from when she was in the hospital 2)while in the hospital her Levothyroxine was decreased to 1/2 tablet daily. Medication was decreased because they though pt's medication was messing with her heart. Problems are still going on even though the medication was decreased. Pt would like to know what to do this this also. Continue on the 1/2 dose or what to do. Please advise pt on above. Jeanine Cunningham LPN [facility] 06-06-2024 Telephone encounter Note Record ID: [id number] Patient name: Nicole Baum Date: June 06, 2024 - : Administered by: MADALYN Protocol: -> Great! Now we are in a secure chat environment. Protecting your health information is important to us. Ok, let's get started. Please verify your name and date of . Please click on the button with your first name. -> Nicole Got it. On to the next question... Select the button with your last name. -> Sarika Got it, thank you. Please enter your date of in MM/DD/YYYY format:(e.g., 10/23/1971 for Oct 23, 1971) -> 1990 Thank you for verifying your information. I'd like to ask you a few questions about how your recovery is going. Since leaving the hospital, do you have any new or worsening symptoms? -> Yes And how have these symptoms changed since you first noticed them? -> Same [facility] 06-06-2024 Miscellaneous Notes Record ID: [id number] Patient name: Nicole Baum Date: June 06, 2024 - 03:03 Administered by: MADALYN Protocol: -> Great! Now we are in a secure chat environment. Protecting your health information is important to us. Ok, let's get started. Please verify your name and date of . Please click on the button with your first name. -> Nicole Got it. On to the next question... Select the button with your last name. -> Sarika Got it, thank you. Please enter your date of in MM/DD/YYYY format:(e.g., 10/23/1971 for Oct 23, 1971) -> 1990 Thank you for verifying your information. I'd like to ask you a few questions about how your recovery is going. Since leaving the hospital, do you have any new or worsening symptoms? -> Yes And how have these symptoms changed since you first noticed them? -> Same documented in this encounter [facility] 05-31-2024 History of Present illness Narrative Chief Complaint Patient presents with: Follow Up: Discuss medication HPI Matt Baum is a 33 year old female who presents here today for Above Complaints.. Patient presents to discuss medications. Patient has a history of hypothyroidism and is on levothyroxine however patient reports she has not been taking it regularly for the past 2-3 months. 2 days ago she started taking it after not taking it for 2 days and reports palptiations and tachycardia. This lasted for about 30 minutes. Past medical history, appointments, medications, allergies reviewed. 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 Patient son born with a cyst on the brain. It was surgically removed when he was 6 years old. 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) Comment: 05/10/2019 01/31/2020: Situational stress No date: Vocal cord dysfunction Comment: Paradoxical VOCAL CORD DYSFUNCTION Previous Surgical History PAST SURGICAL HISTORY : APPENDECTOMY 1994: TONSILLECTOMY & ADENOIDECTOMY <AGE 10 Family History FAMILY HISTORY Problem Relation Age of Onset Stroke Father Alcohol abuse Father Psychiatry Mother BIPOLAR Thyroid Mother No Known Problems Sister No Known Problems Sister No Known Problems Sister No Known Problems Brother Arthritis Maternal Grandmother Heart Maternal Grandmother Osteoporosis Maternal Grandmother Stroke Maternal Grandmother other (Hypotension) Maternal Grandmother Heart Maternal Grandfather Hypertension Maternal Grandfather Alcohol/Drug Maternal Grandfather Psychiatry Maternal Grandfather BIPOLAR No Known Problems Paternal Grandmother No Known Problems Paternal Grandfather No Known Problems Daughter No Known Problems Daughter other (cyst on brain) Son No Known Problems Son No Ocular Disease No Family History Patient Allergies ALLERGIES Allergen Reactions Pereira Pepper Anaphylaxis, Other: See Comments Latex Anaphylaxis, Hives Amoxicillin Hives, Swelling Banana Swelling Latex Hives Verified by skin testing Nubain [Nalbuphine * Rash Avocado Itching Carrot Itching [place]* Other: See Comments Kiwi Itching Hydroxyzine Other: See Comments Extreme fatigue Omeprazole Other: See Comments nausea Sertraline Other: See Comments Bruising, stopped by hematology 12/3022 Current Medications Current Outpatient Medications on File Prior to Visit Medication Sig levothyroxine (SYNTHROID) 125 mcg tablet Take 1 tablet by mouth once daily. potassium chloride 20 mEq TbER Take 1 tablet by mouth once daily. albuterol HFA (PROVENTIL HFA, VENTOLIN HFA) 90 mcg/actuation inhaler Inhale 2 Puffs as instructed every 4 hours as needed for wheezing/shortness of breath. EPINEPHrine (AUVI-Q) 0.3 mg/0.3 mL auto-injector Inject 0.3 mL intramuscularly as needed (for allergic reaction.Seek emergent medical care immediately after use.Dispense:2 2-packs). No current facility-administered medications on file prior to visit. Social History Social History Tobacco Use Smoking status: Never Smokeless tobacco: Never Tobacco comments: No smoking in family Vaping Use Vaping status: Never Used Substance Use Topics Alcohol use: Not Currently Drug use: No Review of Symptoms REVIEW OF SYSTEMS SEE HPI EXAM: BP 111/69 Pulse 92 Resp 14 Wt 54 kg (119 lb) LMP 04/18/2024 (Approximate) BMI 20.43 kg/m General Appearance: Well appearing, alert, in no acute distress, well-hydrated, well nourished.. Lungs: Lungs clear to auscultation. No wheezing, rhonchi, rales.. Heart: RRR without murmur, gallop, or rubs. No ectopy. Health Maintenance List Depression Screening Never done Covid-19 Vaccine(2022- season) Never done Cervical Cancer Screening due on 07/14/2024 Annual PCP Team Chronic Disease Visit due on 05/10/2025 DTaP,Tdap,Td Vaccine(7 - Td or Tdap) due on 06/30/2026 Hepatitis B Vaccine Completed Hepatitis C Screening Completed HIV Screening Completed HPV Vaccine Aged Out Influenza Vaccine Discontinued ASSESSMENT/PLAN: 1. Palpitations - ICD9: 785.1, ICD10: R00.2 - ECG COMPLETE If echo on 06/03 is normal would recommend zio patch monitor for 14 days. Patient instructed to take a half tab of her levothyroxine for the next week and report how she feels. Leora Balderas APRN.MARCOS documented in this encounter [facility] 05-30-2024 Telephone encounter Note Pt notified and agreed to appointment this week to discuss. Referral needed to schedule with leora balderas. Schedulers please call pt Sumi Stein MA [facility] 05-30-2024 Miscellaneous Notes Pt notified and agreed to appointment this week to discuss. Referral needed to schedule with leora balderas. Schedulers please call pt Sumi Stein MA If patient is not taking her medication regularly then yes the my have symptoms if she randomly takes a dose. Thyroid affects many functions in the body including heart rate and rhythm. I recommend patient schedule a visit to discuss drug dosage and barriers to adherence. Patient of Dr. Babb and Mini Crystal, calling to ask for advise. Reports she is ordered levothyroxine 125 mcg daily. Reports she has missed doses over the last several months. Reports this past morning at 4am she took her dose of levothyroxine 125 mcg, after not taking it for some time. Reports about 30-45 min after taking the dose she experienced a feeling of a super fast hear rate for about 30 minutes or less. She did not measure her heart rate. Reports after that she was fatigued and slept for a period of time. She did not experience any chest pain, SOB, or dizziness with this episode. Reports the next day she felt off. Reports she has been more at her baseline since then. Patient asking if thyroid medication can cause palpitations in some people? Patient states she has not taken any more levothyroxine since last and she is terrified to take another one for fear of having another heart rate episode. She is asking if she can start with a lower dose perhaps, for now, and wean back up to the 125 mcg, since she has not been taking it regularly? Pt aware both providers are out today. Will send message to Leora Balderas, for consideration of sending lower dose of levothyroxine into her pharmacy today, if appropriate. Uses [facility]. Patient aware that Leora may defer to Mini. Patient requesting Mini Crystal's advise when she returns to the office tomorrow, as well. Thank you. documented in this encounter [facility] 05-30-2024 Telephone encounter Note If patient is not taking her medication regularly then yes the my have symptoms if she randomly takes a dose. Thyroid affects many functions in the body including heart rate and rhythm. I recommend patient schedule a visit to discuss drug dosage and barriers to adherence. T [facility] 05-30-2024 Telephone encounter Note Patient of Dr. Babb and Mini Crystal, calling to ask for advise. Reports she is ordered levothyroxine 125 mcg daily. Reports she has missed doses over the last several months. Reports this past morning at 4am she took her dose of levothyroxine 125 mcg, after not taking it for some time. Reports about 30-45 min after taking the dose she experienced a feeling of a super fast hear rate for about 30 minutes or less. She did not measure her heart rate. Reports after that she was fatigued and slept for a period of time. She did not experience any chest pain, SOB, or dizziness with this episode. Reports the next day she felt off. Reports she has been more at her baseline since then. Patient asking if thyroid medication can cause palpitations in some people? Patient states she has not taken any more levothyroxine since last and she is terrified to take another one for fear of having another heart rate episode. She is asking if she can start with a lower dose perhaps, for now, and wean back up to the 125 mcg, since she has not been taking it regularly? Pt aware both providers are out today. Will send message to Leora Balderas, for consideration of sending lower dose of levothyroxine into her pharmacy today, if appropriate. Uses [facility]. Patient aware that Leora may defer to Mini. Patient requesting Mini Crystal's advise when she returns to the office tomorrow, as well. Thank you. [facility] 05-13-2024 Telephone encounter Note Pt notified of same. Pt verbalizes understanding. Pt has x-ray scheduled. Yamila Leonardo LPN [facility] 05-13-2024 Miscellaneous Notes Pt notified of same. Pt verbalizes understanding. Pt has x-ray scheduled. Yamila Leonardo LPN New echo placed. If worsening she should go to ER. I will place order for CXR that she can do today. Patient transferred to [facility] for scheduling. No active orders available in [employer]. Echo order only showing in Revw Tab. Please submit or resubmit necessary orders for PSS to schedule appropriately. Patient notified and voiced understanding. Patient indicated today she woke up and just couldn't catch her breath. She used her inhaler and then couldn't stop coughing up phlegm and had to keep clearing her throat. She feels like she still has a hard time catching her breath. May Terrazas MA Labs are normal. documented in this encounter [facility] 05-13-2024 Telephone encounter Note New echo placed. If worsening she should go to ER. I will place order for CXR that she can do today. [facility] 05-13-2024 Telephone encounter Note Patient transferred to [facility] for scheduling. No active orders available in [employer]. Echo order only showing in Revw Tab. Please submit or resubmit necessary orders for PSS to schedule appropriately. T [facility] 05-13-2024 Telephone encounter Note Patient notified and voiced understanding. Patient indicated today she woke up and just couldn't catch her breath. She used her inhaler and then couldn't stop coughing up phlegm and had to keep clearing her throat. She feels like she still has a hard time catching her breath. May Terrazas MA T [facility] 05-13-2024 Telephone encounter Note Labs are normal. [facility] 05-10-2024 History of Present illness Narrative Chief Complaint Patient presents with: Recheck 6 Month Exam HPI Matt Baum is a 33 year old female who presents here today for Chronic Medical Conditions.. Patient with hx of Hypothyroid, anemia, TRUDI, and those as below. Patient states she struggles with daily shortness of breath. Just simple things. She stopped zoloft due to concerns that it was causing some of the issues. She did get approval from hematology to stop blood thinners. Recently was on vacation and a 1 block walk to the beach made her feel winded and fatigued. Past medical history, appointments, medications, allergies reviewed. 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 Patient son born with a cyst on the brain. It was surgically removed when he was 6 years old. 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 05/10/2019: PE (pulmonary thromboembolism) (HCC) Comment: 05/10/2019 01/31/2020: Situational stress No date: Vocal cord dysfunction Comment: Paradoxical VOCAL CORD DYSFUNCTION Previous Surgical History PAST SURGICAL HISTORY : APPENDECTOMY 1995: TONSILLECTOMY & ADENOIDECTOMY <AGE 10 Family History FAMILY HISTORY Problem Relation Age of Onset Stroke Father Alcohol abuse Father Psychiatry Mother BIPOLAR Thyroid Mother No Known Problems Sister No Known Problems Sister No Known Problems Sister No Known Problems Brother Arthritis Maternal Grandmother Heart Maternal Grandmother Osteoporosis Maternal Grandmother Stroke Maternal Grandmother other (Hypotension) Maternal Grandmother Heart Maternal Grandfather Hypertension Maternal Grandfather Alcohol/Drug Maternal Grandfather Psychiatry Maternal Grandfather BIPOLAR No Known Problems Paternal Grandmother No Known Problems Paternal Grandfather No Known Problems Daughter No Known Problems Daughter other (cyst on brain) Son No Known Problems Son No Ocular Disease No Family History Patient Allergies ALLERGIES Allergen Reactions Pereira Pepper Anaphylaxis, Other: See Comments Latex Anaphylaxis, Hives Amoxicillin Hives, Swelling Banana Swelling Latex Hives Verified by skin testing Nubain [Nalbuphine * Rash Avocado Itching Carrot Itching [place]* Other: See Comments Kiwi Itching Hydroxyzine Other: See Comments Extreme fatigue Omeprazole Other: See Comments nausea Sertraline Other: See Comments Bruising, stopped by hematology 12/3022 Current Medications Current Outpatient Medications on File Prior to Visit Medication Sig albuterol HFA (PROVENTIL HFA, VENTOLIN HFA) 90 mcg/actuation inhaler Inhale 2 Puffs as instructed every 4 hours as needed for wheezing/shortness of breath. EPINEPHrine (AUVI-Q) 0.3 mg/0.3 mL auto-injector Inject 0.3 mL intramuscularly as needed (for allergic reaction.Seek emergent medical care immediately after use.Dispense:2 2-packs). levothyroxine (SYNTHROID) 125 mcg tablet Take 1 tablet by mouth once daily. potassium chloride 20 mEq TbER Take 1 tablet by mouth once daily. No current facility-administered medications on file prior to visit. Social History Social History Tobacco Use Smoking status: Never Smokeless tobacco: Never Tobacco comments: No smoking in family Vaping Use Vaping Use: Never used Substance Use Topics Alcohol use: Not Currently Drug use: No Review of Symptoms REVIEW OF SYSTEMS See hpi EXAM: BP 100/80 (BP Site: Right Arm, BP Position: Sitting, BP Cuff Size: Regular Adult) Pulse 88 Temp 36.3 C (97.4 F) Resp 16 Wt 54 kg (119 lb 0.8 oz) LMP 04/18/2024 (Approximate) SpO2 97% BMI 20.43 kg/m General Appearance: Well appearing, alert, in no acute distress, well-hydrated, well nourished.. Neck: Supple, no adenopathy; thyroid symmetric, normal size, no bruits. Lungs: Lungs clear to auscultation. No wheezing, rhonchi, rales.. Heart: RRR without murmur, gallop, or rubs. No ectopy. Extremities: No deformities, edema, skin discoloration, clubbing or cyanosis. Good capillary refill. . Peripheral Pulses: Normal. Health Maintenance List Depression Screening Never done Covid-19 Vaccine(2022-) Never done Cervical Cancer Screening due on 07/14/2024 Annual PCP Team Chronic Disease Visit due on 01/07/2025 DTaP,Tdap,Td Vaccine(7 - Td or Tdap) due on 06/30/2026 Hepatitis B Vaccine Completed Hepatitis C Screening Completed HIV Screening Completed HPV Vaccine Aged Out Influenza Vaccine Discontinued Data reviewed ASSESSMENT/PLAN: 1. Acquired hypothyroidism - ICD9: 244.9, ICD10: E03.9 (primary diagnosis) - Instructed patient on importance of taking on an empty stomach either first thing in the morning or at bedtime. - check TSH today - THYROID STIMULATING HORMONE 2. Hypothyroidism, unspecified type - ICD9: 244.9, ICD10: E03.9 - LEVOTHYROXINE 125 MCG TABLET 3. Iron deficiency anemia secondary to inadequate dietary iron intake - ICD9: 280.1, ICD10: D50.8 Check: - COMPLETE BLOOD COUNT AND DIFFERENTIAL - IRON AND TIBC 4. Iron deficiency anemia during - ICD9: 648.20, 280.9, ICD10: O99.019, D50.9 5. TRUDI (generalized anxiety disorder) - ICD9: 300.02, ICD10: F41.1 Will monitor 6. SANDOVAL (dyspnea on exertion) - ICD9: 786.09, ICD10: R06.09 Check: - ECHO - PERFLUTREN LIPID MICROSPHERES 1.1 MG/ML INJECTION IN NS 10 ML - SODIUM CHLORIDE 0.9 % (FLUSH) INJECTION SYRINGE - COMPREHENSIVE METABOLIC PANEL Will follow up after testing. Mini Crystal PA-C documented in this encounter [facility] 01-29-2024 Telephone encounter Note I spoke with patient and communicated lab results. No evidence of sensitization to food, yet I advised continued avoidance. Tryptase wnl. C4 came mildly reduced, we'll repeat in 2 months. Continue with the plan as discussed during the visit. Patient appreciated the call. Cherry Lance MD Allergy and Clinical Immunology [facility] 01-29-2024 Miscellaneous Notes I spoke with patient and communicated lab results. No evidence of sensitization to food, yet I advised continued avoidance. Tryptase wnl. C4 came mildly reduced, we'll repeat in 2 months. Continue with the plan as discussed during the visit. Patient appreciated the call. Cherry Lance MD Allergy and Clinical Immunology documented in this encounter [facility] 01-22-2024 Instructions Cherry Lance MD - 01/22/2024 2:21 PM EDT Blood work Please call [phone] Arenas. I suggest Zyrtec 10 mg once or twice a day. Albuterol as needed for shortness of breath. documented in this encounter [facility] 01-22-2024 Nurse Note Patient here for consult regarding ED visits. Has had 5 allergic reactions since October. Accidental exposure to banana, carrots, and green peppers. Has history of vocal cord dis function. Does not take daily antihistamines. [facility] 01-22-2024 Nurse Note Patient here for consult regarding ED visits. Has had 5 allergic reactions since October. Accidental exposure to banana, carrots, and green peppers. Has history of vocal cord dis function. Does not take daily antihistamines. 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 Seen by Dr. Cooper in 07/2017. Questioning MCAS and histamine intolerance. Reporting reactions with accidental exposure to green pepper and other food since the beginning of 2023. Had to go to the ED twice earlier this month. Sxs were itchy tingly throat, feeling of throat tightness. Sxs started ~20 min following the ingestion. Benadryl with some help. Brinson off and dizzy next AM. Took more benadryl and headed to ED. Treated with antihistamines and systemic steroids. Reacting to food she had before (ie:spinach feta sandwich). Looked at the ingredients and realized that it contains pepper. Concerned about change in BM- now more mucosy.Noticed improvement with low histamine diet. Accidental exposure to banana, carrots --> Facial swelling, throat tingling/itching, and tightening. Carries the diagnosis of VCD since she was in high school. Albuterol PRN helped the shortness of breath that occurred once during one of the reactions. Latex allergy--> chest tightness. Allergy skin tests were negative to banana, and tomato and equivocal to green pepper on scratch tests with commercial extracts. Per Dr. Cooper's prior documentation. +mildly positive skin test to carrots. 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 Patient son born with a cyst on the brain. It was surgically removed when he was 6 years old. 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 PE (pulmonary thromboembolism) (HCC) 05/10/2019 05/10/2019 Situational stress 01/31/2020 Vocal cord dysfunction Paradoxical VOCAL CORD DYSFUNCTION PAST SURGICAL HISTORY Procedure Laterality Date APPENDECTOMY TONSILLECTOMY & ADENOIDECTOMY <AGE 10 1994 FAMILY HISTORY Problem Relation Age of Onset Stroke Father Alcohol abuse Father Psychiatry Mother BIPOLAR Thyroid Mother No Known Problems Sister No Known Problems Sister No Known Problems Sister No Known Problems Brother Arthritis Maternal Grandmother Heart Maternal Grandmother Osteoporosis Maternal Grandmother Stroke Maternal Grandmother other (Hypotension) Maternal Grandmother Heart Maternal Grandfather Hypertension Maternal Grandfather Alcohol/Drug Maternal Grandfather Psychiatry Maternal Grandfather BIPOLAR No Known Problems Paternal Grandmother No Known Problems Paternal Grandfather No Known Problems Daughter No Known Problems Daughter other (cyst on brain) Son No Known Problems Son No Ocular Disease No Family History Social History Tobacco Use Smoking status: Never Smokeless tobacco: Never Tobacco comments: No smoking in family Current Outpatient Medications Medication Sig albuterol HFA (PROVENTIL HFA, VENTOLIN HFA) 90 mcg/actuation inhaler Inhale 2 Puffs as instructed every 4 hours as needed for wheezing/shortness of breath. EPINEPHrine (AUVI-Q) 0.3 mg/0.3 mL auto-injector Inject 0.3 mL intramuscularly as needed (for allergic reaction.Seek emergent medical care immediately after use.Dispense:2 2-packs). levothyroxine (SYNTHROID) 125 mcg tablet Take 1 tablet by mouth once daily. potassium chloride 20 mEq TbER Take 1 tablet by mouth once daily. No current facility-administered medications for this visit. ALLERGIES Allergen Reactions Pereira Pepper Anaphylaxis, Other: See Comments Latex Anaphylaxis, Hives Amoxicillin Hives, Swelling Banana Swelling Latex Hives Verified by skin testing Nubain [Nalbuphine * Rash Avocado Itching Carrot Itching [place]* Other: See Comments Kiwi Itching Hydroxyzine Other: See Comments Extreme fatigue Omeprazole Other: See Comments nausea Sertraline Other: See Comments Bruising, stopped by hematology 12/3022 Review of Systems Constitutional: Neg for fever GI: see HPI Endocrine: Neg for thyroid disease Derm: Neg for chronic urticaria. Heme/Onc: hx of PE, was taken off blood thinner recently. Rheumatology: Neg for joints swelling. All other systems reviewed and negative except as documented above. Blood pressure 112/78, pulse (!) 58, weight 53.4 kg (117 lb 11.6 oz), last menstrual period 12/20/2023, SpO2 100%, currently . Body mass index is 20.21 kg/m . Physical Exam: General: NAD HEENT: NC/AT, PERRLA, EOMI, no pallor/icterus, MMM, no thrush, oropharynx without exudates. Neck: supple Chest: CTA b/l, no crackles, rales or wheezing CV: RRR, normal S1/S2, no murmurs, rubs or gallops Abd: soft, non tender nor distended, no hepatosplenomegaly Ext: no cyanosis, clubbing or edema Skin: no rashes, bruises or seborrhea Neuro: AAOx4, non focal exam Pertinent Lab Results Hemoglobin (g/dL) Date Value 12/17/2023 13.2 10/14/2021 10.9 Hematocrit (%) Date Value 12/17/2023 38.5 10/14/2021 34.1 WBC (k/uL) Date Value 12/17/2023 5.26 10/14/2021 4.80 Platelet Count (k/uL) Date Value 12/17/2023 195 10/14/2021 210 CMP: Glucose 97 01/05/2024 BUN 10 01/05/2024 Creatinine 0.72 01/05/2024 Sodium 140 01/05/2024 Potassium 3.7 01/05/2024 Chloride 106 01/05/2024 CO2 23 01/05/2024 Protein, Total 6.6 04/20/2023 Albumin 4.6 04/20/2023 Calcium 8.7 01/05/2024 Alkaline Phosphatase 79 04/20/2023 Bilirubin, Total 0.2 04/20/2023 AST 12 04/20/2023 ALT 11 04/20/2023 Allergy Skin Testing from 2017 was reviewed. Assessment and Recommendations Nicole was seen today for new patient evaluation. Diagnoses and all orders for this visit: Adverse reaction to food, subsequent encounter Mast cell disorder Throat tightness Vocal cord dysfunction Continue to avoid the bothering food. I suggested cetirizine 10 mg daily. Would benefit from consulting with Dr. Arenas. Keep epinephrine autoinjector on hand. Proceed with labs: - [facility] SEND OUT TST 2; Future - ALGN CARROT IGE; Future - ALGN BANANA IGE; Future - ALGN KIWI IGE; Future - C3 COMPLEMENT; Future - C4 COMPLEMENT; Future - TRYPTASE BLOOD; Future - CONSULT TO SPEECH THERAPY; Future Shortness of breath Albuterol PRN Consider spirometry if sxs recurred/worsened. Latex allergy Continue to avoid. - ALGN LATEX IGE; Future Return to clinic in 3 months, sooner if there's any concern. AVS provided to patient and included recap of today's appointment and medical plan. Cherry Lance MD Allergy & Clinical Immunology [facility] documented in this encounter [facility] 01-11-2024 Miscellaneous Notes Spoke with pt. Informed she can go off the 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. She is familiar with the symptoms of pulmonary embolism, informed if she should experience them again she she immediately go to the ER , Encouraged her to stay well hydrated, and F/U here on a PRN bases. Pt. Voiced understanding. Emy Sewell LPN Left message for patient to contact office. Char Pugh LPN She can stop 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. In retrospect, she had 1 very small focal pulmonary embolism and a distal pulmonary artery in the setting of dehydration. She is familiar with the symptoms of pulmonary embolism and should she experience those again she should go immediately to the emergency room. I think it unlikely. I would encourage her to stay well-hydrated. Can follow-up here on an as-needed basis. Maria M Quarles DO Patient called in asking if she was able to stop taking her blood thinners? She said her and Dr. Quarles spoke about that at her last visit. She also said that she hasn't taken her Lovenox shots in 24 hours because she has a severe allergic reaction the other day to an antibiotic, and she says the Lovenox can make her histamine levels higher which she said she needs to get her numbers down. Asking if she needs to wean herself off or if this would make anything else worse? Aubrie Valadez documented in this encounter [facility] 01-08-2024 History of Present illness Narrative Chief Complaint Patient presents with: ER F/U HPI Matt Baum is a 33 year old female who presents here today for Above Complaints.. Patient presents for ER follow up for allergic reaction. Patient reports she was exposed to pereira pepper extract two days in a row and was in the ER three times due to tongue swelling and tightness in her throat. Patient requesting to go back on a low dose of zoloft as she is having a lot of anxiety and is currently . Past medical history, appointments, medications, allergies reviewed. Previous Medical History PAST MEDICAL HISTORY Diagnosis Date Acquired hypothyroidism 10/21/2017 Anemia during in first trimester 10/16/2021 Jovel's cyst, left 05/10/2019 Biliary dyskinesia 12/08/2019 Factor II deficiency (HCC) Family history of defect 08/26/2021 08/26/2021. Patient son born with a cyst on the brain. It was surgically removed when he was 6 years old. 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 PE (pulmonary thromboembolism) (HCC) 05/10/2019 05/10/2019 Situational stress 01/31/2020 Vocal cord dysfunction Paradoxical VOCAL CORD DYSFUNCTION Previous Surgical History PAST SURGICAL HISTORY Procedure Laterality Date APPENDECTOMY TONSILLECTOMY & ADENOIDECTOMY <AGE 10 1994 Family History FAMILY HISTORY Problem Relation Age of Onset Stroke Father Alcohol abuse Father Psychiatry Mother BIPOLAR Thyroid Mother No Known Problems Sister No Known Problems Sister No Known Problems Sister No Known Problems Brother Arthritis Maternal Grandmother Heart Maternal Grandmother Osteoporosis Maternal Grandmother Stroke Maternal Grandmother other (Hypotension) Maternal Grandmother Heart Maternal Grandfather Hypertension Maternal Grandfather Alcohol/Drug Maternal Grandfather Psychiatry Maternal Grandfather BIPOLAR No Known Problems Paternal Grandmother No Known Problems Paternal Grandfather No Known Problems Daughter No Known Problems Daughter other (cyst on brain) Son No Known Problems Son No Ocular Disease No Family History Patient Allergies ALLERGIES Allergen Reactions Pereira Pepper Anaphylaxis, Other: See Comments Latex Anaphylaxis, Hives Amoxicillin Hives, Swelling Banana Swelling Latex Hives Verified by skin testing Nubain [Nalbuphine * Rash Avocado Itching Carrot Itching [place]ati* Other: See Comments Kiwi Itching Hydroxyzine Other: See Comments Extreme fatigue Omeprazole Other: See Comments nausea Sertraline Other: See Comments Bruising, stopped by hematology 12/3022 Current Medications Current Outpatient Medications on File Prior to Visit Medication Sig famotidine (PEPCID) 20 mg tablet Take 1 tablet by mouth two times a day for 3 doses. methylPREDNISolone (MEDROL DOSE-PACK) 4 mg Dose-Pack Take as instructed per package. levothyroxine (SYNTHROID) 125 mcg tablet Take 1 tablet by mouth once daily. apixaban (ELIQUIS) 5 mg tab(s) Take 1 tablet by mouth two times a day. EPINEPHrine (AUVI-Q) 0.3 mg/0.3 mL auto-injector Inject 0.3 mL intramuscularly as needed (for allergic reaction.Seek emergent medical care immediately after use.Dispense:2 2-packs). potassium chloride 20 mEq TbER Take 1 tablet by mouth once daily. enoxaparin (LOVENOX) 60 mg/0.6 mL syrg Inject 0.55 mL subcutaneously twice daily. No current facility-administered medications on file prior to visit. Social History Social History Tobacco Use Smoking status: Never Smokeless tobacco: Never Tobacco comments: No smoking in family Vaping Use Vaping Use: Never used Substance Use Topics Alcohol use: Not Currently Drug use: No Review of Symptoms REVIEW OF SYSTEMS SEE HPI EXAM: BP 100/78 Pulse 84 Resp 14 Wt 52.6 kg (116 lb) LMP 12/20/2023 (Approximate) BMI 19.91 kg/m General Appearance: Well appearing, alert, in no acute distress, well-hydrated, well nourished.. Oropharynx: Lips, mucosa, and tongue normal, teeth and gums normal, oropharynx normal. Neck: Supple, no adenopathy; thyroid symmetric, normal size, no bruits. Lungs: Lungs clear to auscultation. No wheezing, rhonchi, rales.. Heart: RRR without murmur, gallop, or rubs. No ectopy. Health Maintenance List Covid-19 Vaccine() Never done Behavioral Health Screening due on 10/04/2024 Pap Testing due on 07/14/2024 HPV Testing due on 07/14/2024 Annual PCP Team Chronic Disease Visit due on 11/06/2024 DTaP,Tdap,Td Vaccine(7 - Td or Tdap) due on 06/30/2026 Hepatitis B Vaccine Completed Hepatitis C Screening Completed HIV Screening Completed HPV Vaccine Aged Out Influenza Vaccine Discontinued ASSESSMENT/PLAN: 1. Situational stress - ICD9: V62.89, ICD10: F43.9 (primary diagnosis) - SERTRALINE 25 MG TABLET 2. Paradoxical vocal cord motion disorder - ICD9: 478.5, ICD10: J38.3 - ALBUTEROL SULFATE HFA 90 MCG/ACTUATION AEROSOL INHALER - INHALATIONAL SPACING DEVICE 3. Allergic reaction, subsequent encounter - ICD9: V58.89, 995.3, ICD10: T78.40XD -Continue benadryl and pepcid as needed Leora Balderas APRN.DIRECTOR OF PUBLICATIONS documented in this encounter [facility] 01-05-2024 Miscellaneous Notes Patient reports she is allergic to green peppers, and ate at a restaurant last night- she was not aware there were green peppers in her food until after she had eaten them. Reports she could feel her tongue and lips swelling and the inside of her mouth was touching. She took 2 benadryl which helped it improve, went to sleep. This morning when woke up could feel her tongue swelling again. Took 2 benadryl. Now feeling burning/tingling throughout whole body and feeling weak. Advised to call 911. Patient agreeable. Reports her is on his way home to care for their 5 children. Reason for Disposition Started suddenly after taking a medicine or allergic food (e.g., nuts) Answer Assessment - Initial Assessment Questions 1. ONSET: Patient reports she ate green pepper last night. Has a known allergy to green peppers. Ordered at a restaurant and didn't realize there were green peppers in her food. Reports her tongue started to swell, and her lips and inside mouth. Reports she took 2 benadryl, and the symptoms improved and she went to sleep. This morning when she woke up her tongue was starting to swell again, and she took 2 benadryl at 6 am. Now at 10:30 she can feel a burning / tingling in her body and feels weak. Advised patient to call 911. Patient agreeable. States she has 5 children and her is on his way home to care for them. Protocols used: Tongue [id number] documented in this encounter [facility] 12-29-2023 Instructions Nata Boyer, MAR - 12/29/2023 4:38 PM EDT ASSESSMENT/PLAN: 1. Dry eyes, bilateral - ICD9: 375.15, ICD10: H04.123 (primary diagnosis) 2. Pain of both eyes - ICD9: 379.91, ICD10: H57.13 Recommended using hot compresses 2-3 times per day. Also discussed the Merrick Mask as an option. Recommended the use of artificial tears 3-4 times per day to maintain good vision and comfort. Discussed contacting the office if there is a change in comfort or vision. Suggested the use of Systane Complete PF 3. Regular astigmatism, bilateral - ICD9: 367.21, ICD10: H52.223 Glasses are an option as desired. Return in 3 weeks. documented in this encounter [facility] 12-29-2023 History of Present illness Narrative ASSESSMENT/PLAN: 1. Dry eyes, bilateral - ICD9: 375.15, ICD10: H04.123 (primary diagnosis) 2. Pain of both eyes - ICD9: 379.91, ICD10: H57.13 Recommended using hot compresses 2-3 times per day. Also discussed the Merrick Mask as an option. Recommended the use of artificial tears 3-4 times per day to maintain good vision and comfort. Discussed contacting the office if there is a change in comfort or vision. Suggested the use of Systane Complete PF 3. Regular astigmatism, bilateral - ICD9: 367.21, ICD10: H52.223 Glasses are an option as desired. Return in 3 weeks. Nata Boyer, MAR documented in this encounter [facility] 12-29-2023 Miscellaneous Notes Patient has been identified by name and date of : Yes, Provider Dr Babb Patient phones for refill(s): Requested Prescriptions Pending Prescriptions Disp Refills levothyroxine (SYNTHROID) 125 mcg tablet 30 tablet 5 Sig: Take 1 tablet by mouth once daily. Date of last office visit in primary care: 11/06/2023 Date of next office visit in primary care: 05/10/2024 Last refill: 06/04/23 #30 5 refills Please advise. Thank you. Winnie Winn LPN. Pharmacy verified in [facility] Patient has been identified by name and date of : Yes Patient requesting a call when RX is approved and sent to the pharmacy. Please call patient at: [phone] Patient phones for refill(s): Requested Prescriptions Pending Prescriptions Disp Refills levothyroxine (SYNTHROID) 125 mcg tablet 30 tablet 5 Sig: Take 1 tablet by mouth once daily. Date of last office visit : 11/06/2023 Date of next office visit : 05/10/2024 Last 2 Encounter Wt Readings: Date: Wt: 12/23/2023 55.3 kg (122 lb) 11/06/2023 54.4 kg (120 lb) Not applicable Please advise. Eloise Ovalle Pss documented in this encounter [facility] 12-23-2023 History of Present illness Narrative Diagnosis: 1) Unprovoked PE. HPI: The patient is a 33-year-old female who had an unremarkable past medical history. 05/09/2019 was working outside when noticed extreme fatigue. Was prone to low K, so thought it might be that. When went to bed that evening had 'weird' sensation in left leg--burning. Also felt uneasy in the abdomen like was going to have diarrhea. Went to BR but no need for BM, but was very nauseated suddenly. Had visual dimming and burning sensation between shoulder blades. Was taken to ED morning of 05/10. CT of the chest on 05/10/2019 demonstrated focal pulmonary embolism in a subsegmental branch in the right upper lobe. It was nonocclusive. A venous duplex ultrasound on 05/10 demonstrated no evidence of left lower extremity DVT. There was a Jovel's cyst appreciated in the left popliteal fossa. Patient was discharged on Lovenox with instructions to transition to Coumadin. Presented back to the ED the next day with complaint of headache. CT of the brain showed normal unenhanced CT of the brain. Patient was given Reglan and Benadryl with improvement of the headache. She was discharged after improvement. Patient was seen again in the ER on 05/13 for complaints of nausea and not feeling well. No specific diagnosis. She was noted that she had a vasovagal episode after injecting herself Lovenox at morning. Was still on initial course of Lovenox when fist seen here. Coumadin dosing from 3 mg to 6 mg to 9 mg daily. INR 1.3. Coumadin had been making her nauseated. No family h/o VTE. Maternal GM had strokes. No use of OCPs. Was in the ED on 06/13/2019 with complaints of right lower extremity pain. Ultrasound was negative for DVT. She had remained on Eliquis. Was back in the ED on 08/22/2019 with complaints of shortness of breath. Workup included vitals, lab work consideration of CT but that was not done due to the fact that she was more comfortable in the ER and her vitals were normal. Was in the ED at [place] for complaint left arm tingling and heaviness. She presented because of her history of hyperkalemia in symptoms that had manifested similarly previously. Potassium was 4.1 mmol/L. Presents for ongoing hematologic management. Interim history: Seen here last for SHELTON. Delivered a healthy baby girl. She has continued to breast-feed so has remained on Lovenox. No unusual bleeding or unexplained bruising. No leg pain or swelling. No episodes of dyspnea or chest pain. Has not plaint of bilateral eye pain especially in the mornings. Eyes feel gritty without necessarily being dry. Not matted shut. Has been using preservative-free moisturizing eyedrops. Symptoms unchanged. No dry mouth. PMH, medications and allergies personally reviewed by me today. Any changes documented in appropriate section. ROS: Constitutional: Denies episodes of fever and night sweats. Not significantly fatigued. Normal appetite. Neuro: Denies MAR, vertigo, dizziness and imbalance. HEENT: No recent change in voice or hearing. Resp: Denies cough, wheeze and hemoptysis. CVS: Denies exertional chest pain, PND, orthopnea and LE edema. GI: Denies dysgeusia. Denies symptoms of stomatitis. Denies dysphagia and odynophagia. Denies reflux, n/v, change in bowel habits and abdominal pain. : Denies dysuria or gross hematuria. No symptoms of bladder outlet obstruction. Endo: Denies hot flashes. Denies polyuria and polydipsia. Denies heat and cold intolerance. Musculoskeletal: Denies bone, back, joint and muscular pain. Derm: Denies rash. Denies jaundice and diffuse pruritis. Heme: See above. Psych: Normal mood. PHYSICAL EXAM: Vitals: Blood pressure 110/67, pulse 76, temperature 36.8 C (98.3 F), temperature source Temporal, height 162.6 cm (5' 4), weight 55.3 kg (122 lb), last menstrual period 10/21/2023, SpO2 99%, currently . Well-appearing and in no acute distress. EYES: Sclerae are anicteric bilaterally. LYMPHATIC: There is no palpable cervical or supraclavicular adenopathy. RESPIRATORY: Inspiratory breath sounds are of normal intensity in all francis. No rales, wheezes or rhonchi. Expiratory phase is normal. CARDIOVASCULAR: Rhythm is regular. ABDOMEN: The abdomen is nondistended. No organomegaly. No tenderness. Extremities: No swelling or edema. SKIN: No jaundice. LABS: ASSESSMENT/PLAN: (I26.99) PE (pulmonary thromboembolism) (HCC) Assessment: -Unprovoked PE. -Difficult getting to therapeutic INR. Rotated to Eliquis. -Now on Lovenox during and breast feeding. -In retrospect, she recalls working very hard outside when her symptoms had their onset in 2019. The CT demonstrated 1 focal area of possible embolism in a subsegmental branch of the right upper lobe. Hypercoagulation workup significant only for heterozygous mutation prothrombin gene mutation. Plan: -Rotate to apixaban. -Rx printed to check into patient assistance. -I will contact the radiologist at [facility] who read her original chest CT scan when he is back from leave. If questionable PE then discontinue 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. Assessment: -Stools for occult blood negative. -Completed 9 doses of iron sucrose to date. -Has maintained normal hemoglobin mass since completing iron nearly 2 years ago. No clear indication for endoscopy. Plan: -No further monitoring from hematologic standpoint. Eye pain. -Ophthalmology referral. Portions of this documentation were copied and pasted from previous office visit notes in order to provide a cohesive continuity of the history. The note has been reviewed and edited and updated as necessary. I spent a total of 20 minutes on the date of the service which included preparing to see the patient, [id number] patient care, completing clinical documentation, obtaining and/or reviewing separately obtained history, performing a medically appropriate examination, ordering medications, tests, or procedures, communicating with other HCPs (not separately reported), and communicating results to the patient/family/caregiver. Maria M Quarles DO documented in this encounter [facility] 2023 Miscellaneous Notes Pt notified of same. Yamila Leonardo LPN Let patient know that her labs are normal. documented in this encounter [facility] 12-17-2023 Miscellaneous Notes Patient added on to the scheduled as directed. Aubrie Valadez Patient states she has been on Lovenox since 2020. Last OV here 03/2022. Patient states she's currently attempting to wean baby off of breast milk and plans to be done within several weeks. Would like to see Dr. Quarles to discuss converting to oral anti-coagulant but is not able to tolerate warfarin. Dr. Cristobal had mentioned Eliquis in the past. She's asking for an appointment soon as she is concerned with staying on Lovenox and we will need time to search/set up patient assistance d/t no insurance coverage. PSS- please schedule patient to see Dr. Quarles 12/23/2023 @ 10:50. Patient is aware of appointment date and time. Char Pugh LPN Patient called asking if office visit was needed due to change in medications. Patient was last seen 03/2022. Patient states she needs to be taken off of lovenox. She states she is nursing and is unsure if she is able to take eliquis. Please advise. documented in this encounter [facility] 11-06-2023 History of Present illness Narrative Chief Complaint Patient presents with: Recheck HPI Matt Baum is a 32 year old female who presents here today for Above Complaints.. Patient with hx of hypothyroidism, hypokalemia, anemia, PE, TRUDI, and those as below. No specific concerns today. Has had some random episodes of pain which she had in thepast when her potassium was low. She also reports dry eyes in the morning. Past medical history, appointments, medications, allergies reviewed. Previous Medical History PAST MEDICAL HISTORY Diagnosis Date Acquired hypothyroidism 10/21/2017 Anemia during in first trimester 10/16/2021 Jovel's cyst, left 05/10/2019 Biliary dyskinesia 12/08/2019 Factor II deficiency (HCC) Family history of defect 08/26/2021 08/26/2021. Patient son born with a cyst on the brain. It was surgically removed when he was 6 years old. 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 PE (pulmonary thromboembolism) (HCC) 05/10/2019 05/10/2019 Situational stress 01/31/2020 Vocal cord dysfunction Paradoxical VOCAL CORD DYSFUNCTION Previous Surgical History PAST SURGICAL HISTORY Procedure Laterality Date APPENDECTOMY TONSILLECTOMY & ADENOIDECTOMY <AGE 12 1994 Family History FAMILY HISTORY Problem Relation Age of Onset Psychiatry Mother BIPOLAR Thyroid Mother Stroke Father Alcohol abuse Father No Known Problems Sister No Known Problems Sister No Known Problems Sister No Known Problems Brother Arthritis Maternal Grandmother Heart Maternal Grandmother Osteoporosis Maternal Grandmother Stroke Maternal Grandmother other (Hypotension) Maternal Grandmother Heart Maternal Grandfather Hypertension Maternal Grandfather Alcohol/Drug Maternal Grandfather Psychiatry Maternal Grandfather BIPOLAR No Known Problems Paternal Grandmother No Known Problems Paternal Grandfather No Known Problems Daughter No Known Problems Daughter other (cyst on brain) Son No Known Problems Son Patient Allergies ALLERGIES Allergen Reactions Pereira Pepper Anaphylaxis, Other: See Comments Latex Anaphylaxis, Hives Amoxicillin Hives, Swelling Banana Swelling Latex Hives Verified by skin testing Nubain [Nalbuphine * Rash Hydroxyzine Other: See Comments Extreme fatigue Omeprazole Other: See Comments nausea Sertraline Other: See Comments Bruising, stopped by hematology 12/3022 Current Medications Current Outpatient Medications on File Prior to Visit Medication Sig trimethoprim-polymyxin (POLYTRIM) 10,000 unit- 1 mg/mL ophthalmic solution Use 1 Drop in the left eye four times daily for 7 days. EPINEPHrine (AUVI-Q) 0.3 mg/0.3 mL auto-injector Inject 0.3 mL intramuscularly as needed (for allergic reaction.Seek emergent medical care immediately after use.Dispense:2 2-packs). levothyroxine (SYNTHROID) 125 mcg tablet Take 1 tablet by mouth once daily. potassium chloride 20 mEq TbER Take 1 tablet by mouth once daily. enoxaparin (LOVENOX) 60 mg/0.6 mL syrg Inject 0.55 mL subcutaneously twice daily. multivitamin (CLASSIC ) 28 mg iron- 800 mcg tab(s) Take 1 tablet by mouth once daily. No current facility-administered medications on file prior to visit. Social History Social History Tobacco Use Smoking status: Never Smokeless tobacco: Never Tobacco comments: No smoking in family Vaping Use Vaping Use: Never used Substance Use Topics Alcohol use: Not Currently Drug use: No Review of Symptoms REVIEW OF SYSTEMS GENERAL: No weight loss, malaise or fevers NECK: Negative for lumps, goiter, pain and significant neck swelling RESPIRATORY: Negative for cough, hemoptysis, wheezing, COPD, dyspnea or shortness of breath CARDIOVASCULAR: Negative for chest pain, leg swelling, CHF or palpitations NEURO: No history of headaches, syncope, paralysis, seizures or tremors EXAM: BP 100/70 (BP Site: Left Arm, BP Position: Sitting, BP Cuff Size: Regular Adult) Pulse 96 Temp 36.5 C (97.7 F) Resp 16 Wt 54.4 kg (120 lb) LMP 10/21/2023 (Approximate) BMI 20.60 kg/m General Appearance: Well appearing, alert, in no acute distress, well-hydrated, well nourished.. Neck: Supple, no adenopathy; thyroid symmetric, normal size, no bruits. Lungs: Lungs clear to auscultation. No wheezing, rhonchi, rales.. Heart: RRR without murmur, gallop, or rubs. No ectopy. Extremities: No deformities, edema, skin discoloration, clubbing or cyanosis. Good capillary refill. . Peripheral Pulses: Normal. Health Maintenance List Covid-19 Vaccine(1) Never done Depression Assessment due on 10/04/2024 Annual PCP Team Chronic Disease Visit due on 06/04/2024 Pap Testing due on 07/14/2024 HPV Testing due on 07/14/2024 DTaP,Tdap,Td Vaccine(7 - Td or Tdap) due on 06/30/2026 Hepatitis B Vaccine Completed Hepatitis C Screening Completed HIV Screening Completed HPV Vaccine Aged Out Influenza Vaccine Discontinued Data reviewed Component Latest Ref Rng & Units 11/03/2023 Cholesterol, Total <200 mg/dL 200 (H) Triglyceride <150 mg/dL 48 HDL Cholesterol >39 mg/dL 75 Non HDL Cholesterol <130 mg/dL 125 Fasting Time hrs 12 VLDL Cholesterol <30 mg/dL 10 TC:HDL Ratio <5.10 2.67 LDL Cholesterol <100 mg/dL 115 (H) LDL:HDL Ratio <2.54 1.53 TSH 0.270 - 4.200 mIU/L 2.010 ASSESSMENT/PLAN: 1. Acquired hypothyroidism - ICD9: 244.9, ICD10: E03.9 (primary diagnosis) - Instructed patient on importance of taking on an empty stomach either first thing in the morning or at bedtime. - continue current dose of Synthroid 2. Hypokalemia - ICD9: 276.8, ICD10: E87.6 Check labs - BASIC METABOLIC PNL 3. TRUDI (generalized anxiety disorder) - ICD9: 300.02, ICD10: F41.1 stable 4. Iron deficiency anemia secondary to inadequate dietary iron intake - ICD9: 280.1, ICD10: D50.8 Check: - CBC + DIFF - IRON + TIBC Mini Crystal PA-C documented in this encounter [facility] 08-23-2023 Miscellaneous Notes Thank you. Maria M Quarles DO SOCIAL WORK FOLLOW UP NOTE: [facility] Date of service: August 21, 2023 Matt M Sarika is being seen for a follow up social work visit. Today's visit includes: patient TOPICS ADDRESSED: SW called and spoke to pt this date regarding plan for staying on Lovenox while . SW shared Dr. Quarles's concern of increased risk of osteoperosis with assisted Lovenox use. Pt very ambivalent to stop . Her initial response was she'd like to keep for at least 3-4 more months but then stated she would like the weekend the think about it and asked SW to call her back on Thursday. PLAN: Continue follow up as needed F/U APPOINTMENT: PRN Assigned SW listed in Care Team tab: Yes RON Montero documented in this encounter [facility] 06-04-2023 Miscellaneous Notes Addended by: MINI SWANSON on: 06/04/2023 02:13 PM Modules accepted: Orders documented in this encounter [facility] 06-04-2023 History of Present illness Narrative Chief Complaint Patient presents with: Yearly Exam HPI Matt Baum is a 32 year old female who presents here today for physical. Patient with hx of hypothyroidism, Hypokalemia, anemia, PE, TRUDI, and those as below. No specific concerns today. Recent thyroid changes. Past medical history, appointments, medications, allergies reviewed. Previous Medical History PAST MEDICAL HISTORY Diagnosis Date Acquired hypothyroidism 10/21/2017 Anemia during in first trimester 10/16/2021 Jovel's cyst, left 05/10/2019 Biliary dyskinesia 12/08/2019 Factor II deficiency (HCC) Family history of defect 08/26/2021 08/26/2021. Patient son born with a cyst on the brain. It was surgically removed when he was 6 years old. 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 PE (pulmonary thromboembolism) (HCC) 05/10/2019 05/10/2019 Situational stress 01/31/2020 Vocal cord dysfunction Paradoxical VOCAL CORD DYSFUNCTION Previous Surgical History PAST SURGICAL HISTORY Procedure Laterality Date APPENDECTOMY TONSILLECTOMY & ADENOIDECTOMY <AGE 12 1994 Family History FAMILY HISTORY Problem Relation Age of Onset Psychiatry Mother BIPOLAR Thyroid Mother Stroke Father Alcohol abuse Father No Known Problems Sister No Known Problems Sister No Known Problems Sister No Known Problems Brother Arthritis Maternal Grandmother Heart Maternal Grandmother Osteoporosis Maternal Grandmother Stroke Maternal Grandmother other (Hypotension) Maternal Grandmother Heart Maternal Grandfather Hypertension Maternal Grandfather Alcohol/Drug Maternal Grandfather Psychiatry Maternal Grandfather BIPOLAR No Known Problems Paternal Grandmother No Known Problems Paternal Grandfather No Known Problems Daughter No Known Problems Daughter other (cyst on brain) Son No Known Problems Son Patient Allergies ALLERGIES Allergen Reactions Pereira Pepper Anaphylaxis, Other: See Comments Latex Anaphylaxis, Hives Amoxicillin Hives, Swelling Banana Swelling Latex Hives Verified by skin testing Nubain [Nalbuphine * Rash Hydroxyzine Other: See Comments Extreme fatigue Omeprazole Other: See Comments nausea Sertraline Other: See Comments Bruising, stopped by hematology 12/3022 Current Medications Current Outpatient Medications on File Prior to Visit Medication Sig levothyroxine (SYNTHROID) 125 mcg tablet Take 1 tablet by mouth once daily. Thursday- Thursday. Take 1.5 tablet by mouth on Thursday potassium chloride 20 mEq TbER Take 1 tablet by mouth once daily. enoxaparin (LOVENOX) 60 mg/0.6 mL syrg Inject 0.55 mL subcutaneously twice daily. multivitamin (CLASSIC ) 28 mg iron- 800 mcg tab(s) Take 1 tablet by mouth once daily. EPINEPHrine (AUVI-Q) 0.3 mg/0.3 mL auto-injector Inject 0.3 mL intramuscularly as needed (for allergic reaction.Seek emergent medical care immediately after use.Dispense:2 2-packs). ibuprofen (MOTRIN) 600 mg tablet Take 1 tablet by mouth every 6 hours as needed for pain. (Patient not taking: Reported on 06/04/2023) blood sugar diagnostic test strip 1 Strip four times daily. Use as instructed (Patient not taking: Reported on 06/04/2023) Lancets lancets 1 Each four times daily. Use as instructed (Patient not taking: Reported on 06/04/2023) No current facility-administered medications on file prior to visit. Social History Social History Tobacco Use Smoking status: Never Smokeless tobacco: Never Tobacco comments: No smoking in family Vaping Use Vaping Use: Never used Substance Use Topics Alcohol use: Not Currently Drug use: No Review of Symptoms REVIEW OF SYSTEMS GENERAL: No weight loss, malaise or fevers HEENT: No changes in hearing or vision, no nose bleeds or other nasal problems NECK: Negative for lumps, goiter, pain and significant neck swelling RESPIRATORY: Negative for cough, hemoptysis, wheezing, COPD, dyspnea or shortness of breath CARDIOVASCULAR: Negative for chest pain, leg swelling, hypertension, CHF or palpitations GI: Negative for abdominal discomfort, blood in stools or black stools, change in bowel habit, heart burn, nausea, vomiting : No history of dysuria, frequency or incontinence MUSCULOSKELETAL: Negative for joint pain or swelling, back pain or muscle pain SKIN: Negative for lesions, rash, and itching PSYCH: Negative for sleep disturbance, mood disorder and recent psychosocial stressors HEMATOLOGY/LYMPHOLOGY: Negative for prolonged bleeding, bruising easily or swollen nodes ENDOCRINE: Negative for cold or heat intolerance, polyuria, polydipsia and goiter NEURO: No history of headaches, syncope, paralysis, seizures or tremors EXAM: BP 90/60 (BP Site: Right Arm, BP Position: Sitting, BP Cuff Size: Regular Adult) Pulse 70 Temp 36.3 C (97.3 F) Resp 16 Ht 162.6 cm (5' 4) Wt 54.4 kg (120 lb) LMP 05/24/2023 (Approximate) BMI 20.60 kg/m General Appearance: Well appearing, alert, in no acute distress, well-hydrated, well nourished.. Skin: Skin color, texture, turgor normal, no suspicious rashes or lesions. Head: Normocephalic, no masses, lesions, tenderness or abnormalities. Eyes: Anicteric sclera. Pupils are equally round and reactive to light. Extraocular movements are intact. . Ears: External ears normal, canals clear, tms pearly barba. Nose/Sinuses: Nares normal, septum midline, mucosa normal, no drainage or sinus tenderness. Oropharynx: Lips, mucosa, and tongue normal, teeth and gums normal, oropharynx normal. Neck: Supple, no adenopathy; thyroid symmetric, normal size, no bruits. Lungs: Lungs clear to auscultation. No wheezing, rhonchi, rales.. Heart: RRR without murmur, gallop, or rubs. No ectopy. Abdomen: Normal abdominal exam, Abdomen soft, non-tender. Bowel sounds normal. No masses, organomegaly. Extremities: No deformities, edema, skin discoloration, clubbing or cyanosis. Good capillary refill. . Peripheral Pulses: Normal. Neurologic: Gait normal. Reflexes normal and symmetric. Sensation grossly intact.. Health Maintenance List COVID-19 VACCINE(1) Never done DEPRESSION ASSESSMENT Never done ANNUAL PCP TEAM CHRONIC DISEASE VISIT due on 04/20/2024 PAP TESTING due on 07/14/2024 HPV TESTING due on 07/14/2024 DTAP,TDAP,TD(7 - Td or Tdap) due on 06/30/2026 HEPATITIS B Completed HEPATITIS C SCREENING Completed HIV SCREENING Completed HPV VACCINE Aged Out INFLUENZA Discontinued Data reviewed ASSESSMENT/PLAN: 1. Well adult exam - ICD9: V70.0, ICD10: Z00.00 (primary diagnosis) - Counseled on healthy diet and regular exercise - Calcium intake with supplements or by diet of 1000 mg/day for under 50, 7854-7134 mg/day for 50+ 2. Encounter for lipid screening for cardiovascular disease - ICD9: V77.91, V81.2, ICD10: Z13.220, Z13.6 - LIPID PANEL, NONFASTING 3. TRUDI (generalized anxiety disorder) - ICD9: 300.02, ICD10: F41.1 Stable off medication 4. Anemia during in third trimester - ICD9: 648.23, ICD10: O99.013 5. Acquired hypothyroidism - ICD9: 244.9, ICD10: E03.9 Recheck as schedule in jun 6. Hypokalemia - ICD9: 276.8, ICD10: E87.6 7. Situational stress - ICD9: V62.89, ICD10: F43.9 stable 8. Hypothyroidism, unspecified type - ICD9: 244.9, ICD10: E03.9 - LEVOTHYROXINE 125 MCG TABLET Mini Crystal PA-C documented in this encounter [facility] 04-21-2023 Miscellaneous Notes PATIENT NOTIFIED OF INFORMATION Left message for patient to contact office. May Terrazas MA Let patient know her electrolytes and Mg were ok. I would continue the 1/2 of potassium tab once ad ay though. Her thyroid test shows she is not getting enough replacement medication. This is most likely the cause of her recent symptoms. I want to increase her levothyroxine to 125 mcg one tab every day. Script sent. Order placed to get repeat thyroid lab in 2 months. The following approved medication requests have been transmitted electronically. Requested Prescriptions Signed Prescriptions Disp Refills levothyroxine (SYNTHROID) 125 mcg tablet 30 tablet 5 Sig: Take 1 tablet by mouth once daily. Thursday- Thursday. Take 1.5 tablet by mouth on Thursday Authorizing Provider: RAVINDER BABB MD documented in this encounter [facility] 04-14-2023 Miscellaneous Notes Spoke with Dr. Quarles, symptoms are not consistent with a clotting issue and DVT has been ruled out. No labs ordered at this time. He advises seeing PCP, Urgent care or ED for persistent or increasing symptoms. Patient is ok with response and states understanding. She denies further questions. Ruby Saini RN Disposition: per Dr. Quarles, patient directed to: Manage at home. Provided instructions and will call back. Patient will call us if any questions/concerns as per above. Anna Saini RN [facility] Care Coordination FOLLOW-UP NOTE Patient identified by name and date of . YES Spoke to patient Summary: (Reason for follow-up) Left leg and arm pain Concerns: (New Barriers to care) Spoke with patient, states she is concerned because no lab work was done in the ED this afternoon. States she feels weird and the first time I had a PE, it was found on my blood work and no DVT found on ultrasound States left leg and arm are tingling with sharp pain that is fleeting. Rates 6/10 States Mid-back pain that is dull and constant. Rates 4/10 Yesterday for about 25 minutes, she states her head felt floaty and weird then she noticed pain in the back of her left knee but thought maybe sore from working out Then today at 4am, she woke up to pain in her inner thigh and groin that was sharp and constant. Rates 7/10. It eased up by the time she was at the ED but now with the tingling and stinging as above. She is wondering if any lab work would be helpful? New Referrals Needed: No Is the patient having any pain? as discussed above Medication questions or concerns? no Line, drain, or catheter education given? N/A Patient verbalized when to seek Medical Attention and an understanding of after- hours phone number and process: Yes Care Coordination Plan: Will discuss with Dr. Quarles and call back with further instructions. Anna Saini RN April 14, 2023 Images from the original note were not included. EMERGENCY ROOM CALL BACK Today's date: April 14, 2023 Patient identified by name and date of . 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 She went to [facility] and states they did an US which did not show a blood clot. She states they did not draw labs. Patient requesting to speak to clinical. documented in this encounter [facility] 04-10-2023 Miscellaneous Notes Lovenox picked up by pt. RON Montero SW called and left pt a detailed voicemail that Lovenox is available for pickup. If pt arrives for pickup, Lovenox is located in the pharmacy. Pt will need to sign pickup form as usual. VINNY Montero-S Patient called stating she has not heard from office regarding Lovenox injections. She states she has two left. Please advise patient. documented in this encounter [facility] 01-06-2023 Miscellaneous Notes Message relayed to patient. She informed that she now has bruising on her arms and legs. 1st attempt. Message left on VM to contact office for message below. Platelet count normal. Maria M Quarles DO documented in this encounter [facility] 01-04-2023 Miscellaneous Notes I called and spoke to Nicole and scheduled her for Thursday01/05/23 @ 4:15 pm Keila Yusuf Pss LM for patient to return call. When patient calls, please schedule CBC on 01/05/23 at the patient's convenience. Once scheduled, document and close this note. (Peripheral lab draws do not require self-pay referrals.) Charito Lopez Filed. Maria M Quarles DO Please file order. Patient is aware and self-pay referral was entered. Char Pugh LPN Thank you. Check CBC Thursday then. Maria M Quarles DO Spoke with pt. Informed current dose of Lovenox is correct. Currently taking : Synthroid 100 mcg daily Thursday thru Thursday 1.5 tablets on Thursday. Zoloft 100 mg 1/2 tablet alternating with 1 tablet everyother day. No Ibuprofen since April last year. Tylenol in Nov for headaches vitamin 1 daily Bleeding gums only when she uses floss Still breast feeding. Emy Lentz LPN Message left for patient to contact this office for questions below. Char Pugh LPN Self pay referral entered for lab appt. Her dose of Lovenox is correct for her weight. She should come in Thursday for CBC. Ibuprofen is on her medication list. Has she been using any NSAIDs or any [id number] products that may contain aspirin or NSAIDs? Any other changes in medicines? Any bleeding problems such as nosebleeds, gum oozing or bleeding or rectal bleeding? Is she still breast-feeding? Maria M Quarles DO Pt stops in for weight check. 121 lbs Pt notes 2 weeks of bruising in various spots. I'm bruising more than usual. No injuries. Audelia Garza LPN documented in this encounter [facility] 11-03-2022 Miscellaneous Notes SW called [facility] as pt's Lovenox has not been received yet. Reorder form was successfully faxed on 10/17/22. [employer] reports she sent it over while on phone with SW to be processed and expedited today. RON Montero documented in this encounter [facility] 09-30-2022 Miscellaneous Notes Patient notified of results, verbalizes understanding of instructions. Sumi Coreas MA Let patient know that her TSH level is now a little high. So I would like her to add an extra 1/2 tablet per week. So on Thursday-Thursday take 1 tablet and on sundays take 1.5 tablets. Recheck labs in 8 weeks. 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 Pt declined pharmacist counseling and signed for pick-up. SW returned signed form to pharmacy. RON Montero documented in this encounter [facility] 09-04-2022 Miscellaneous Notes SW received a voicemail from pt this date asking for a Loven[facility] refill. [facility]. SW successfully faxed back this form this date and sent the originals to internal scanning. RON Montero documented in this encounter [facility] 08-07-2022 Miscellaneous Notes L/m for patient to contact office. Needs scheduled in 11/2022 for yearly. Patient has been identified by name and date of : Yes Requested Prescriptions Pending Prescriptions Disp Refills sertraline (ZOLOFT) 100 mg tablet 30 tablet 5 Sig: Take 1 tablet by mouth once daily. levothyroxine (SYNTHROID) 100 mcg tablet 30 tablet 1 Sig: Take 1 tablet by mouth once daily. RX INSTRUCTIONS: Patient aware RX will be sent to pharmacy. No need to notify patient. May Terrazas MA [place]: 11/2021 Last refill: 11/2021 Patient has been identified by name and date of : Yes Last office visit in this department: 11/13/2021 RX INSTRUCTIONS: Patient aware RX will be sent to pharmacy. No need to notify patient. Patient phones requesting refills as follows: Requested Prescriptions Pending Prescriptions Disp Refills sertraline (ZOLOFT) 100 mg tablet 30 tablet 5 Sig: Take 1 tablet by mouth once daily. levothyroxine (SYNTHROID) 100 mcg tablet 30 tablet 1 Sig: Take 1 tablet by mouth once daily. Please review and advise. Juju Morrissey Pss documented in this encounter [facility] 07-25-2022 Miscellaneous Notes SW called pt to inform her that her Lovenox is available for pick-up. Pt not available. SW left detailed voicemail and SW's direct call-back number. VINNY Montero-S documented in this encounter [facility] 07-17-2022 Miscellaneous Notes SW called pt to inform her that her Lovenox is available for pick-up. Pt not available. SW left detailed voicemail and SW's direct call-back number. VINNY Montero-S documented in this encounter [facility] 06-19-2022 Miscellaneous Notes See result note Synthroid ordered documented in this encounter [facility] 06-16-2022 History of Present illness Narrative Matt Baum is a 31 year old female who presents for problem visit. HPI: Patient presents with vaginal irritation & increased vaginal discharge. OB History T5 L5 SAB1 IAB0 Ectopic0 Multiple0 Live Births5 Line Maintainer History LMP: 07/19/2021 (Exact Date), Recent Age at Menarche: Age at First : Age at Menopause: Line Maintainer History Comments: Sexual Activity: Yes; Male Contraception: Vasectomy PAST MEDICAL HISTORY Diagnosis Date Acquired hypothyroidism 10/21/2017 Anemia during in first trimester 10/16/2021 Jovel's cyst, left 05/10/2019 Biliary dyskinesia 12/08/2019 Factor II deficiency (HCC) Family history of defect 08/26/2021 08/26/2021. Patient son born with a cyst on the brain. It was surgically removed when he was 6 years old. 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 PE (pulmonary thromboembolism) (HCC) 05/10/2019 05/10/2019 Situational stress 01/31/2020 Vocal cord dysfunction Paradoxical VOCAL CORD DYSFUNCTION PAST SURGICAL HISTORY Procedure Laterality Date APPENDECTOMY TONSILLECTOMY & ADENOIDECTOMY <AGE 12 1994 FAMILY HISTORY Problem Relation Age of Onset Psychiatry Mother BIPOLAR Thyroid Mother Stroke Father Alcohol abuse Father No Known Problems Sister No Known Problems Sister No Known Problems Sister No Known Problems Brother Arthritis Maternal Grandmother Heart Maternal Grandmother Osteoporosis Maternal Grandmother Stroke Maternal Grandmother other (Hypotension) Maternal Grandmother Heart Maternal Grandfather Hypertension Maternal Grandfather Alcohol/Drug Maternal Grandfather Psychiatry Maternal Grandfather BIPOLAR No Known Problems Paternal Grandmother No Known Problems Paternal Grandfather No Known Problems Daughter No Known Problems Daughter other (cyst on brain) Son No Known Problems Son Social History Tobacco Use Smoking status: Never Smokeless tobacco: Never Tobacco comments: No smoking in family Vaping Use Vaping Use: Never used Substance Use Topics Alcohol use: Not Currently Drug use: No Current Outpatient Medications Medication Sig levothyroxine (SYNTHROID) 125 mcg tablet take 1 tablet by mouth once daily ibuprofen (MOTRIN) 600 mg tablet Take 1 tablet by mouth every 6 hours as needed for pain. blood sugar diagnostic test strip 1 Strip four times daily. Use as instructed Lancets lancets 1 Each four times daily. Use as instructed enoxaparin (LOVENOX) 60 mg/0.6 mL syrg Inject 0.55 mL subcutaneously twice daily. sertraline (ZOLOFT) 100 mg tablet Take 1 tablet by mouth once daily. multivitamin (CLASSIC ) 28 mg iron- 800 mcg tab(s) Take 1 tablet by mouth once daily. EPINEPHrine (AUVI-Q) 0.3 mg/0.3 mL auto-injector Inject 0.3 mL intramuscularly as needed (for allergic reaction.Seek emergent medical care immediately after use.Dispense:2 2-packs). iron polysaccharide/C/B comp (PROTECT IRON LIQUID ORAL) Take by mouth. (Patient not taking: Reported on 03/24/2022 ) ondansetron (ZOFRAN) 4 mg tablet Take 1 tablet by mouth every 8 hours as needed for nausea/vomiting. (Patient not taking: Reported on 05/29/2022) No current facility-administered medications for this visit. Allergies As of Date: 06/16/2022 Allergen Noted Reaction GREEN PEPPER 02/24/2022 Anaphylaxis and Other: See Comments LATEX 02/24/2022 Anaphylaxis and Hives AMOXICILLIN 02/04/2006 Hives and Swelling LATEX 09/15/2005 Hives NUBAIN [NALBUPHINE HCL] 11/25/2011 Rash BANANA 02/24/2022 Swelling HYDROXYZINE 01/31/2020 Other: See Comments OMEPRAZOLE 01/31/2020 Other: See Comments Fully Assessed 06/16/2022 REVIEW OF SYSTEMS Bladder: No dysuria, gross hematuria, urinary frequency, urinary urgency, or incontinence. Allergies and current medication updated:Yes EXAM: BP 100/60 Wt 120 lb 12.8 oz (54.8kg) LMP 07/19/2021 GENERAL: pleasant, female in no apparent distress PELVIC: external genitalia normal, normal Bartholin's glands, urethra, Geiger's glands, no vulvar lesions, no cervical lesions, good vaginal support, discharge present, normal appearing perineal body and perianal region ASSESSMENT AND PLAN: 31yo female for vaginal irritation and increased discharge Vaginal infection panel ordered If negative would recommend trying OTC refresh Medical Decision Making: Problems: Minimal: Self-limited or minor problem Data: Unique test(s) ordered: 3+ Risk: Low: Low risk from testing/treatment Medical Decision Making Level: 3 - Low Jonny Terrazas MD documented in this encounter [facility] 06-11-2022 Miscellaneous Notes 30 tablets sent in with no refills Check TSH Refill request received from pharmacy for patients Synthroid. Patient last seen for exam on 05/29/22. Patient has not completed TSH and CBC blood work that was ordered at time of appointment. Suzan Nazario RN documented in this encounter [facility] 05-29-2022 History of Present illness Narrative VISIT Matt Baum is a 31 year old year old here for visit. Delivery Summary: 04/09/2022 ROS/ Recovery: Feeding: Breast feeding problems: Inadequate milk supply Menses since delivery: none Menstrual pattern prior to : Regular periods [place] since delivery: Resumed Depression: denies symptoms of depression. OB Depression and Anxiety Screening- This Encounter (since 05/28/2022) Over the past 2 weeks have you felt down, depressed, or hopeless? Negative Over the past two weeks, have you felt little interest or pleasure in doing things? Negative Feeling nervous, anxious or on edge 1-Several days Not being able to stop or control worrying 0-Not al all Anxiety Pre-Screening Total (If >/= 3 additional questions will be reviewed) 1 Emotional support: Yes Bowel symptoms: Negative for abdominal discomfort, blood in stools or black stools and change in bowel habits Abdomen: N/A Bladder symptoms: No dysuria, gross hematuria, urinary frequency, urinary urgency, or incontinence Other issues: None Last Pap: 2019 normal HPV: negative PAST MEDICAL HISTORY Diagnosis Date Acquired hypothyroidism 10/21/2017 Anemia during in first trimester 10/16/2021 Jovel's cyst, left 05/10/2019 Biliary dyskinesia 12/08/2019 Factor II deficiency (HCC) Family history of defect 08/26/2021 08/26/2021. Patient son born with a cyst on the brain. It was surgically removed when he was 6 years old. 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 PE (pulmonary thromboembolism) (HCC) 05/10/2019 05/10/2019 Situational stress 01/31/2020 Vocal cord dysfunction Paradoxical VOCAL CORD DYSFUNCTION PAST SURGICAL HISTORY Procedure Laterality Date APPENDECTOMY TONSILLECTOMY & ADENOIDECTOMY <AGE 12 1994 FAMILY HISTORY Problem Relation Age of Onset Psychiatry Mother BIPOLAR Thyroid Mother Stroke Father Alcohol abuse Father No Known Problems Sister No Known Problems Sister No Known Problems Sister No Known Problems Brother Arthritis Maternal Grandmother Heart Maternal Grandmother Osteoporosis Maternal Grandmother Stroke Maternal Grandmother other (Hypotension) Maternal Grandmother Heart Maternal Grandfather Hypertension Maternal Grandfather Alcohol/Drug Maternal Grandfather Psychiatry Maternal Grandfather BIPOLAR No Known Problems Paternal Grandmother No Known Problems Paternal Grandfather No Known Problems Daughter No Known Problems Daughter other (cyst on brain) Son No Known Problems Son Social History Tobacco Use Smoking status: Never Smokeless tobacco: Never Tobacco comments: No smoking in family Vaping Use Vaping Use: Never used Substance Use Topics Alcohol use: Not Currently Drug use: No PHYSICAL EXAMINATION: BP 96/60 Wt 124 lb (56.2kg) LMP 07/19/2021 GENERAL: pleasant, female in no apparent distress HEENT: Normocephalic, atraumatic, mucus membranes moist, and no lesions NECK: full range of motion DERMATOLOGY: Normal, without lesions, non-icteric, and non-hirsute BREAST: soft, non-tender, symmetric, no dominant mass, normal nipple-areolar complex, no lymphadenopathy, and no nipple discharge CHEST: Normal inspiratory effort ABDOMEN: soft, non-tender, and no masses. INCISION: N/A PELVIC: external genitalia normal, normal Bartholin's glands, urethra, Geiger's glands, no vulvar lesions, no cervical lesions, good vaginal support, physiologic discharge present, normal appearing perineal body and perianal region BIMANUAL: uterus normal size, shape and consistency, no adnexal masses, and non-tender NEURO: exam grossly non-focal EXTREMITIES: normal ASSESSMENT AND PLAN: 31 year old status post with normal course. - Check CBC and TSH - Doing well with therapist who she sees weekly Contraception plan: vasectomy Follow up: RTC for annual exams and PRN Allie Rome DO documented in this encounter [facility] 05-27-2022 Miscellaneous Notes Patient informed of Dr. Quarles's response, stated understanding. Desiree Solano RN Very unusual place for blood clot. Please advise her to go to urgent care or contact her PCP. Maria M Quarles DO Patient called in today stated on Thursday she discovered a lump on the bottom part of my forearm that was the size of a pea. Today this lump is the size of a dime. Patient stated the lump is firm and moves around when palpating. Patient stated it reminds her of the lumps she gets from her Lovenox injections in her stomach. Patient stated she has a black and blue, yellow, purple, red bruise over the area where the lump is that extends out past the lump the length of a dollar bill folded in half. Patient stated the lump is painful if you hit that area. Patient denies hematuria, hematochezia, and epistaxis. Patient also denies trauma to her arm, skin being warm to touch, or obvious swelling in her left extremity. Patient stated she is concerned that she has another blood clot. Patient is on Lovenox and takes as prescribed. Patient aware this nurse will inform Dr. Quarles of patient concerns and will call her back after speaking to Dr. Quarles. 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 EARLY VISIT Matt Baum is a 31 year old here for 2 week visit. Delivery Summary: Stefanie Baum [[id number]] Delivery Information: Delivery Date: 04/09/22 Delivery type: Vaginal, Spontaneous Delivering Clinician: Dakota Eaton DO Vacuum Used: No Forceps Used: No Shoulder Dystocia Present: No Lacerations: None Episiotomy: None [place]: Gender: Female Weight (grams): 2919 g One Minute : 8 Five Minute : 9 ROS: General: Denies any fever or chills Hypertension Screening: Headache? No. Visual Changes? No Epigastric Pain? No Increased Swelling? No Taking any BP medications at home? No If applicable, monitoring BP at home? (If Yes, include results) NA Mood: normal Depression: denies symptoms of depression. OB Depression and Anxiety Screening- This Encounter (since 04/24/2022) Over the past 2 weeks have you felt down, depressed, or hopeless? Negative Over the past two weeks, have you felt little interest or pleasure in doing things? Negative Feeling nervous, anxious or on edge 2-More than half the days Not being able to stop or control worrying 0-Not al all Anxiety Pre-Screening Total (If >/= 3 additional questions will be reviewed) 2 Feeding: Breast feeding problems: None Bladder: some soreness feeling Bowel symptoms: Negative for abdominal discomfort, blood in stools or black stools and change in bowel habits Abdomen: N/A Bleeding: spotting Bottom and Perineum: No issues Sleep: no sleep concerns [place] since delivery: Not resumed Emotional support: Yes Exercise: N/A Other issues: None PHYSICAL EXAMINATION: BP 100/60 Wt 122 lb 12.8 oz (55.7 kg) LMP 07/19/2021 (Exact Date) Yes BMI 21.08 kg/m General: pleasant,female in no apparent distress. Skin warm and intact. Breast: Deferred Abdomen: soft and no masses. Minimal uterine tenderness. Fundus firm. Incision: N/A Pelvic: Deferred Bimanual: Deferred ASSESSMENT AND PLAN: 1. 31 year old status post with normal course. 2. Contraception plan: Considering sterilization but would like to hold off on scheduling at this time. Title 19 signed today. Reinforced 6-week pelvic rest. Encouraged condom usage should patient deviate. 3. Education: resources provided - see MA/RN note 4. Lovenox per heme 5. TSH, T4 ordered 6. Continue following with therapist Follow up: Return to Clinic for 6 week visit and as needed Medical Decision Making Allie Rome DO documented in this encounter [facility] 04-16-2022 Miscellaneous Notes FYI Patient returned call. Per OV note 03/24/2022- She will resume Lovenox when her monitor and storage bin tender feels appropriate. 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 Patient is and cannot take warfarin d/t nausea and difficulty getting a therapeutic INR on warfarin. Patient instructed on Lovenox dosage and will continue on Lovenox and will contact her 's counseling center manager for further guidance on and Lovenox. Char Pugh LPN Left message for patient to contact this nurse. Char Pugh LPN Yes, she need to stay on Lovenox 60 mg sq every 12 hours , and convert to warfarin if she is breast-feeding. If she is not breast-feeding, then she could rotate to Eliquis 5mg twice daily. Raquel Cristobal MD Patient now weighs 124 lb. Does she need to stay on Lovenox? And if so, does dose need to be adjusted now that she's given ? Char Pugh LPN Patient does not have scale at home. She will be in at 10:45 for weight check. Second message left for patient to contact office with current weight. Char Pugh LPN Left message asking patient for her current weight. Char Pugh LPN Patient delivered baby on 04/09. Wondering if she should continue on same dose of lovenox and if so, how long, will she need to come in to make any adjustments, etc? Please advise and contact patient at number listed. documented in this encounter [facility] 04-16-2022 History of Present illness Narrative SOCIAL WORK FOLLOW UP NOTE: [facility] Date of service: April 16, 2022 Matt Lynnharris is being seen for a follow up social work visit. Today's visit includes: patient TOPICS ADDRESSED: coping/support and finances PLAN: Continue follow up as needed; SW met with patient on this day to discuss refill of Lovenox. SW sent reorder form on this day and patient aware to check with physician on dose she should take. Patient informed SW will be leaving this office and is aware to let other staff know if she is need of a refill. Patient denies other needs. F/U APPOINTMENT: PRN Assigned APARNA listed in Care Team tab: Yes VINNY King documented in this encounter [facility] 04-11-2022 Miscellaneous Notes SOCIAL WORK FOLLOW UP NOTE: [facility] Date of service: April 11, 2022 Matt Baum is being seen for a follow up social work visit. Today's visit includes: patient not present TOPICS ADDRESSED: Finances; APARNA called patient to see if she is in need of refill of Lovenox. SW left message with direct call back number. No other needs identified. PLAN: Continue follow up as needed F/U APPOINTMENT: PRN Assigned APARNA listed in Care Team tab: Yes VINNY King documented in this encounter [facility] 04-09-2022 History of Past i llness Narrative Problem Noted Date Resolved Date Intact amniotic membranes du ring in third trimester 04/09/2022 04/09/2022 Overview: - Reporting LOF in the afternoon - Nitrazine negative - Ferning negative - No pooling on speculum Indication for care in labor or delivery 022 04/11/2022 Overview: of girl Largest prior delivery [id number] Uterine contractions 04/08/2022 04/09/2022 Overview: - Reactive NST and Cat I - Contractions q 4-7 mins - Cervix 4/70/-1 Of note, this is minimal change from 12 hours prior Offered pt observation Thoroughly reviewed labor precautions Sign out to night team No leakage of amniotic fluid into vagina 022 04/09/2022 Overview: No pooling, no ferning, nitrazine neg Benign gestational thrombocytopenia in third tri mester 02/07/2022 04/09/2022 Overview: 02/07/22 Plt 137. Admission plt UTI (urinary tract infection) in , ante 11/19/2021 04/09/2022 Overview: 11/15/21-UTI ecoli. Treated with Macrobid. Urine MARINE next visit. Estefania Slater APRN.CNM Well adult exam 11/13/2021 04/09/2022 Overview: last done: 11/13/2021 Encounter for screening for diabetes mellitus 04/09/2022 Anemia during in first trimester 10/1604/09/2022 Unplanned 08/26/2021 04/09/2022 Overview: 11/13/2021 Her and her plan to keep baby. FOB is not involved. SW 08/26/2021 Patient admits that she has not told her that she is yet. She states that she and her have been having problems for some time and that she was unfaithful to him. The father of the baby is not involved. She states he is undocumented. She states that she wants to to adopt the baby out to her cousin at this time who is going through infertility. She states she wants this 'burden to turn into a beauty'. I have given her information on [facility]. Patient does state that her may have an alcohol issue. Denies any abuse in the past. She states he is not living with them at this present time so she is not concerned about her safety now. I have advised her about the services that every women's house has in case there are any issues that occur. 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 She uses an Albuterol Inhaler PRN.TKRN History of stomach ulcers 02/07/20142013 Overview: 02/07/2014.She was treated for a stomach ulcer when she was in high school. TKRN Nausea/vomiting in 02/07/2014 Overview: 02/07/2014Patient is complaining of nausea in . She denies any vomiting. She wishes to try vitamin B6 100 mg daily. Advised patient to call/come in if she is unable to keep any food or fluids down in a 24-hour period. TKRN Group B streptococcal infect ion in child of prior , currently 02/07/2014 01/28/2016 Overview: 02/07/2014Patient states that her previous baby was hospitalized for approximately 3 weeks on and off beginning at age 5 weeks for positive group B strep infection. Nata Small BSN RN Fundal height low for dates 07/12/201203/2014 Supervision of normal 02/24/2012 01/28/2016 Overview: XX GBS (group B streptococcus) UTI complicating pre gnancy 02/24/2012 02/07/2014 Overview: 04/22 - MARINE negative - KK Abdominal pain, left lower quadrant 01/10/2010 02/24/2012 Supervision of normal first 11/08/2009 02/24/2012 documented as of this encounter (statuses as of 04/11/2022) [facility] History of Past illness Narrative* Problem Noted Date Resolved Date Intact amniotic membranes du ring in third trimester 04/09/2022 04/09/2022 Overview: - Reporting LOF in the afternoon - Nitrazine negative - Ferning negative - No pooling on speculum Indication for care in labor or delivery 022 04/11/2022 Overview: of girl Largest prior delivery [id number] Uterine contractions 04/08/2022 04/09/2022 Overview: - Reactive NST and Cat I - Contractions q 4-7 mins - Cervix 70/-1 Of note, this is minimal change from 12 hours prior Offered pt observation Thoroughly reviewed labor precautions Sign out to night team No leakage of amniotic fluid into vagina 022 04/09/2022 Overview: No pooling, no ferning, nitrazine neg Benign gestational thrombocytopenia in third tri mester 02/07/2022 04/09/2022 Overview: 02/07/22 Plt 137. Admission plt UTI (urinary tract infection) in , ante 11/19/2021 04/09/2022 Overview: 11/15/21-UTI ecoli. Treated with Macrobid. Urine MARINE next visit. Estefania Slater APRN.CNM Well adult exam 11/13/2021 04/09/2022 Overview: last done: 11/13/2021 Encounter for screening for diabetes mellitus 04/09/2022 Anemia during in first trimester 10/1604/09/2022 Unplanned 08/26/2021 04/09/2022 Overview: 11/13/2021 Her and her plan to keep baby. FOB is not involved. SW 08/26/2021 Patient admits that she has not told her that she is yet. She states that she and her have been having problems for some time and that she was unfaithful to him. The father of the baby is not involved. She states he is undocumented. She states that she wants to to adopt the baby out to her cousin at this time who is going through infertility. She states she wants this 'burden to turn into a beauty'. I have given her information on [facility]. Patient does state that her may have an alcohol issue. Denies any abuse in the past. She states he is not living with them at this present time so she is not concerned about her safety now. I have advised her about the services that every women's house has in case there are any issues that occur. 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 She uses an Albuterol Inhaler PRN.TKRN History of stomach ulcers 02/07/20142013 Overview: 02/07/2014.She was treated for a stomach ulcer when she was in high school. TKRN Nausea/vomiting in 02/07/2014 Overview: 02/07/2014Patient is complaining of nausea in . She denies any vomiting. She wishes to try vitamin B6 100 mg daily. Advised patient to call/come in if she is unable to keep any food or fluids down in a 24-hour period. TKRN Group B streptococcal infect ion in child of prior , currently 02/07/2014 01/28/2016 Overview: 02/07/2014Patient states that her previous baby was hospitalized for approximately 3 weeks on and off beginning at age 5 weeks for positive group B strep infection. Nata Small BSN RN Fundal height low for dates 07/12/2012 0503/2014 Supervision of normal 02/24/2012 01/28/2016 Overview: XX GBS (group B streptococcus) UTI complicating pre gnancy 02/24/2012 02/07/2014 Overview: 04/22 - MARINE negative - KK Abdominal pain, left lower quadrant 01/10/2010 02/24/2012 Supervision of normal first 11/08/2009 02/24/2012 documented as of this encounter (statuses as of 04/16/2022) [facility] History of Past illness Narrative* Problem Noted Date Resolved Date Intact amniotic membranes du ring in third trimester 04/09/2022 04/09/2022 Overview: - Reporting LOF in the afternoon - Nitrazine negative - Ferning negative - No pooling on speculum Indication for care in labor or delivery 022 04/11/2022 Overview: of girl Largest prior delivery [id number] Uterine contractions 04/08/2022 04/09/2022 Overview: - Reactive NST and Cat I - Contractions q 4-7 mins - Cervix 4/70/-1 Of note, this is minimal change from 12 hours prior Offered pt observation Thoroughly reviewed labor precautions Sign out to night team No leakage of amniotic fluid into vagina 022 04/09/2022 Overview: No pooling, no ferning, nitrazine neg Benign gestational thrombocytopenia in third tri mester 02/07/2022 04/09/2022 Overview: 02/07/22 Plt 137. Admission plt UTI (urinary tract infection) in , ante 11/19/2021 04/09/2022 Overview: 11/15/21-UTI ecoli. Treated with Macrobid. Urine MARINE next visit. Estefania Slater APRN.CNM Well adult exam 11/13/2021 04/09/2022 Overview: last done: 11/13/2021 Encounter for screening for diabetes mellitus 04/09/2022 Anemia during in first trimester 10/1604/09/2022 Unplanned 08/26/2021 04/09/2022 Overview: 11/13/2021 Her and her plan to keep baby. FOB is not involved. SW 08/26/2021 Patient admits that she has not told her that she is yet. She states that she and her have been having problems for some time and that she was unfaithful to him. The father of the baby is not involved. She states he is undocumented. She states that she wants to to adopt the baby out to her cousin at this time who is going through infertility. She states she wants this 'burden to turn into a beauty'. I have given her information on [facility]. Patient does state that her may have an alcohol issue. Denies any abuse in the past. She states he is not living with them at this present time so she is not concerned about her safety now. I have advised her about the services that every women's house has in case there are any issues that occur. 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 She uses an Albuterol Inhaler PRN.TKRN History of stomach ulcers 02/07/20142013 Overview: 02/07/2014.She was treated for a stomach ulcer when she was in high school. TKRN Nausea/vomiting in 02/07/2014 Overview: 02/07/2014Patient is complaining of nausea in . She denies any vomiting. She wishes to try vitamin B6 100 mg daily. Advised patient to call/come in if she is unable to keep any food or fluids down in a 24-hour period. TKRN Group B streptococcal infect ion in child of prior , currently 02/07/2014 01/28/2016 Overview: 02/07/2014Patient states that her previous baby was hospitalized for approximately 3 weeks on and off beginning at age 5 weeks for positive group B strep infection. Nata MCBRIDEN RN Fundal height low for dates 07/12/201203/2014 Supervision of normal 02/24/2012 01/28/2016 Overview: XX GBS (group B streptococcus) UTI complicating pre gnancy 02/24/2012 02/07/2014 Overview: 04/22 - MARINE negative - KK Abdominal pain, left lower quadrant 01/10/2010 02/24/2012 Supervision of normal first 11/08/2009 02/24/2012 documented as of this encounter (statuses as of 04/16/2022) [facility] History of Past illness Narrative* Problem Noted Date Resolved Date Intact amniotic membranes du ring in third trimester 04/09/2022 04/09/2022 Overview: - Reporting LOF in the afternoon - Nitrazine negative - Ferning negative - No pooling on speculum Indication for care in labor or delivery 022 04/11/2022 Overview: of girl Largest prior delivery [id number] Uterine contractions 04/08/2022 04/09/2022 Overview: - Reactive NST and Cat I - Contractions q 4-7 mins - Cervix /-1 Of note, this is minimal change from 12 hours prior Offered pt observation Thoroughly reviewed labor precautions Sign out to night team No leakage of amniotic fluid into vagina 022 04/09/2022 Overview: No pooling, no ferning, nitrazine neg Benign gestational thrombocytopenia in third tri mester 02/07/2022 04/09/2022 Overview: 02/07/22 Plt 137. Admission plt UTI (urinary tract infection) in , ante 11/19/2021 04/09/2022 Overview: 11/15/21-UTI ecoli. Treated with Macrobid. Urine MARINE next visit. Estefania Slater APRN.CNM Well adult exam 11/13/2021 04/09/2022 Overview: last done: 11/13/2021 Encounter for screening for diabetes mellitus 04/09/2022 Anemia during in first trimester 10/1604/09/2022 Unplanned 08/26/2021 04/09/2022 Overview: 11/13/2021 Her and her plan to keep baby. FOB is not involved. SW 08/26/2021 Patient admits that she has not told her that she is yet. She states that she and her have been having problems for some time and that she was unfaithful to him. The father of the baby is not involved. She states he is undocumented. She states that she wants to to adopt the baby out to her cousin at this time who is going through infertility. She states she wants this 'burden to turn into a beauty'. I have given her information on [facility]. Patient does state that her may have an alcohol issue. Denies any abuse in the past. She states he is not living with them at this present time so she is not concerned about her safety now. I have advised her about the services that every women's house has in case there are any issues that occur. 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 She uses an Albuterol Inhaler PRN.TKRN History of stomach ulcers 02/07/20142013 Overview: 02/07/2014.She was treated for a stomach ulcer when she was in high school. TKRN Nausea/vomiting in 02/07/2014 Overview: 02/07/2014Patient is complaining of nausea in . She denies any vomiting. She wishes to try vitamin B6 100 mg daily. Advised patient to call/come in if she is unable to keep any food or fluids down in a 24-hour period. TKRN Group B streptococcal infect ion in child of prior , currently 02/07/2014 01/28/2016 Overview: 02/07/2014Patient states that her previous baby was hospitalized for approximately 3 weeks on and off beginning at age 5 weeks for positive group B strep infection. Nata MCBRIDEN RN Fundal height low for dates 07/12/2012 0503/2014 Supervision of normal 02/24/2012 01/28/2016 Overview: XX GBS (group B streptococcus) UTI complicating pre gnancy 02/24/2012 02/07/2014 Overview: 04/22 - MARINE negative - KK Abdominal pain, left lower quadrant 01/10/2010 02/24/2012 Supervision of normal first 11/08/2009 02/24/2012 documented as of this encounter (statuses as of 04/25/2022) [facility] History of Past illness Narrative* Problem Noted Date Resolved Date Intact amniotic membranes du ring in third trimester 04/09/2022 04/09/2022 Overview: - Reporting LOF in the afternoon - Nitrazine negative - Ferning negative - No pooling on speculum Indication for care in labor or delivery 022 04/11/2022 Overview: of girl Largest prior delivery [id number] Uterine contractions 04/08/2022 04/09/2022 Overview: - Reactive NST and Cat I - Contractions q 4-7 mins - Cervix 4/70/-1 Of note, this is minimal change from 12 hours prior Offered pt observation Thoroughly reviewed labor precautions Sign out to night team No leakage of amniotic fluid into vagina 022 04/09/2022 Overview: No pooling, no ferning, nitrazine neg Benign gestational thrombocytopenia in third tri mester 02/07/2022 04/09/2022 Overview: 02/07/22 Plt 137. Admission plt UTI (urinary tract infection) in , ante 11/19/2021 04/09/2022 Overview: 11/15/21-UTI ecoli. Treated with Macrobid. Urine MARINE next visit. Estefania Slater APRN.LIANNEM Well adult exam 11/13/2021 04/09/2022 Overview: last done: 11/13/2021 Encounter for screening for diabetes mellitus 04/09/2022 Anemia during in first trimester 10/1604/09/2022 Unplanned 08/26/2021 04/09/2022 Overview: 11/13/2021 Her and her plan to keep baby. FOB is not involved. SW 08/26/2021 Patient admits that she has not told her that she is yet. She states that she and her have been having problems for some time and that she was unfaithful to him. The father of the baby is not involved. She states he is undocumented. She states that she wants to to adopt the baby out to her cousin at this time who is going through infertility. She states she wants this 'burden to turn into a beauty'. I have given her information on [facility]. Patient does state that her may have an alcohol issue. Denies any abuse in the past. She states he is not living with them at this present time so she is not concerned about her safety now. I have advised her about the services that every women's house has in case there are any issues that occur. 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 She uses an Albuterol Inhaler PRN.TKRN History of stomach ulcers 02/07/20142013 Overview: 02/07/2014.She was treated for a stomach ulcer when she was in high school. TKRN Nausea/vomiting in 02/07/2014 Overview: 02/07/2014Patient is complaining of nausea in . She denies any vomiting. She wishes to try vitamin B6 100 mg daily. Advised patient to call/come in if she is unable to keep any food or fluids down in a 24-hour period. TKRN Group B streptococcal infect ion in child of prior , currently 02/07/2014 01/28/2016 Overview: 02/07/2014Patient states that her previous baby was hospitalized for approximately 3 weeks on and off beginning at age 5 weeks for positive group B strep infection. Nata Small BSN RN Fundal height low for dates 07/12/201203/2014 Supervision of normal 02/24/2012 01/28/2016 Overview: XX GBS (group B streptococcus) UTI complicating pre gnancy 02/24/2012 02/07/2014 Overview: 04/22 - MARINE negative - KK Abdominal pain, left lower quadrant 01/10/2010 02/24/2012 Supervision of normal first 11/08/2009 02/24/2012 documented as of this encounter (statuses as of 05/27/2022) [facility] History of Past illness Narrative* Problem Noted Date Resolved Date Intact amniotic membranes du ring in third trimester 04/09/2022 04/09/2022 Overview: - Reporting LOF in the afternoon - Nitrazine negative - Ferning negative - No pooling on speculum Indication for care in labor or delivery 022 04/11/2022 Overview: of infant girl Largest prior delivery [id number] Uterine contractions 04/08/2022 04/09/2022 Overview: - Reactive NST and Cat I - Contractions q 4-7 mins - Cervix /70/-1 Of note, this is minimal change from 12 hours prior Offered pt observation Thoroughly reviewed labor precautions Sign out to night team No leakage of amniotic fluid into vagina 022 04/09/2022 Overview: No pooling, no ferning, nitrazine neg Benign gestational thrombocytopenia in third tri mester 02/07/2022 04/09/2022 Overview: 02/07/22 Plt 137. Admission plt UTI (urinary tract infection) in , ante 11/19/2021 04/09/2022 Overview: 11/15/21-UTI ecoli. Treated with Macrobid. Urine MARINE next visit. Estefania Slater APRN.CNM Well adult exam 11/13/2021 04/09/2022 Overview: last done: 11/13/2021 Encounter for screening for diabetes mellitus 04/09/2022 Anemia during in first trimester 10/1604/09/2022 Unplanned 08/26/2021 04/09/2022 Overview: 11/13/2021 Her and her plan to keep baby. FOB is not involved. SW 08/26/2021 Patient admits that she has not told her that she is yet. She states that she and her have been having problems for some time and that she was unfaithful to him. The father of the baby is not involved. She states he is undocumented. She states that she wants to to adopt the baby out to her cousin at this time who is going through infertility. She states she wants this 'burden to turn into a beauty'. I have given her information on [facility]. Patient does state that her may have an alcohol issue. Denies any abuse in the past. She states he is not living with them at this present time so she is not concerned about her safety now. I have advised her about the services that every women's house has in case there are any issues that occur. 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 She uses an Albuterol Inhaler PRN.TKRN History of stomach ulcers 02/07/20142013 Overview: 02/07/2014.She was treated for a stomach ulcer when she was in high school. TKRN Nausea/vomiting in 02/07/2014 Overview: 02/07/2014Patient is complaining of nausea in . She denies any vomiting. She wishes to try vitamin B6 100 mg daily. Advised patient to call/come in if she is unable to keep any food or fluids down in a 24-hour period. TKRN Group B streptococcal infect ion in child of prior , currently 02/07/2014 01/28/2016 Overview: 02/07/2014Patient states that her previous baby was hospitalized for approximately 3 weeks on and off beginning at age 5 weeks for positive group B strep infection. Nata Small BSN RN Fundal height low for dates 07/12/2012 0503/2014 Supervision of normal 02/24/2012 01/28/2016 Overview: XX GBS (group B streptococcus) UTI complicating pre gnancy 02/24/2012 02/07/2014 Overview: 04/22 - MARINE negative - KK Abdominal pain, left lower quadrant 01/10/2010 02/24/2012 Supervision of normal first 11/08/2009 02/24/2012 documented as of this encounter (statuses as of 05/28/2022) [facility] History of Past illness Narrative* Problem Noted Date Resolved Date Intact amniotic membranes du ring in third trimester 04/09/2022 04/09/2022 Overview: - Reporting LOF in the afternoon - Nitrazine negative - Ferning negative - No pooling on speculum Indication for care in labor or delivery 022 04/11/2022 Overview: of girl Largest prior delivery [id number] Uterine contractions 04/08/2022 04/09/2022 Overview: - Reactive NST and Cat I - Contractions q 4-7 mins - Cervix 4/70/-1 Of note, this is minimal change from 12 hours prior Offered pt observation Thoroughly reviewed labor precautions Sign out to night team No leakage of amniotic fluid into vagina 022 04/09/2022 Overview: No pooling, no ferning, nitrazine neg Benign gestational thrombocytopenia in third tri mester 02/07/2022 04/09/2022 Overview: 02/07/22 Plt 137. Admission plt UTI (urinary tract infection) in , ante 11/19/2021 04/09/2022 Overview: 11/15/21-UTI ecoli. Treated with Macrobid. Urine MARINE next visit. Estefania Slater APRN.CNM Well adult exam 11/13/2021 04/09/2022 Overview: last done: 11/13/2021 Encounter for screening for diabetes mellitus 04/09/2022 Anemia during in first trimester 10/1604/09/2022 Unplanned 08/26/2021 04/09/2022 Overview: 11/13/2021 Her and her plan to keep baby. FOB is not involved. SW 08/26/2021 Patient admits that she has not told her that she is yet. She states that she and her have been having problems for some time and that she was unfaithful to him. The father of the baby is not involved. She states he is undocumented. She states that she wants to to adopt the baby out to her cousin at this time who is going through infertility. She states she wants this 'burden to turn into a beauty'. I have given her information on [facility]. Patient does state that her may have an alcohol issue. Denies any abuse in the past. She states he is not living with them at this present time so she is not concerned about her safety now. I have advised her about the services that every women's house has in case there are any issues that occur. 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 She uses an Albuterol Inhaler PRN.TKRN History of stomach ulcers 02/07/20142013 Overview: 02/07/2014.She was treated for a stomach ulcer when she was in high school. TKRN Nausea/vomiting in 02/07/2014 Overview: 02/07/2014Patient is complaining of nausea in . She denies any vomiting. She wishes to try vitamin B6 100 mg daily. Advised patient to call/come in if she is unable to keep any food or fluids down in a 24-hour period. TKRN Group B streptococcal infect ion in child of prior , currently 02/07/2014 01/28/2016 Overview: 02/07/2014Patient states that her previous baby was hospitalized for approximately 3 weeks on and off beginning at age 5 weeks for positive group B strep infection. Nata Small BSN RN Fundal height low for dates 07/12/2012 0503/2014 Supervision of normal 02/24/2012 01/28/2016 Overview: XX GBS (group B streptococcus) UTI complicating pre gnancy 02/24/2012 02/07/2014 Overview: 04/22 - MARINE negative - KK Abdominal pain, left lower quadrant 01/10/2010 02/24/2012 Supervision of normal first 11/08/2009 02/24/2012 documented as of this encounter (statuses as of 06/02/2022) [facility] History of Past illness Narrative* Problem Noted Date Resolved Date Intact amniotic membranes du ring in third trimester 04/09/2022 04/09/2022 Overview: - Reporting LOF in the afternoon - Nitrazine negative - Ferning negative - No pooling on speculum Indication for care in labor or delivery 022 04/11/2022 Overview: of infant girl Largest prior delivery [id number] Uterine contractions 04/08/2022 04/09/2022 Overview: - Reactive NST and Cat I - Contractions q 4-7 mins - Cervix 4/70/-1 Of note, this is minimal change from 12 hours prior Offered pt observation Thoroughly reviewed labor precautions Sign out to night team No leakage of amniotic fluid into vagina 022 04/09/2022 Overview: No pooling, no ferning, nitrazine neg Benign gestational thrombocytopenia in third tri mester 02/07/2022 04/09/2022 Overview: 02/07/22 Plt 137. Admission plt UTI (urinary tract infection) in , ante 11/19/2021 04/09/2022 Overview: 11/15/21-UTI ecoli. Treated with Macrobid. Urine MARINE next visit. Estefania Slater APRN.CNM Well adult exam 11/13/2021 04/09/2022 Overview: last done: 11/13/2021 Encounter for screening for diabetes mellitus 04/09/2022 Anemia during in first trimester 10/1604/09/2022 Unplanned 08/26/2021 04/09/2022 Overview: 11/13/2021 Her and her plan to keep baby. FOB is not involved. SW 08/26/2021 Patient admits that she has not told her that she is yet. She states that she and her have been having problems for some time and that she was unfaithful to him. The father of the baby is not involved. She states he is undocumented. She states that she wants to to adopt the baby out to her cousin at this time who is going through infertility. She states she wants this 'burden to turn into a beauty'. I have given her information on [facility]. Patient does state that her may have an alcohol issue. Denies any abuse in the past. She states he is not living with them at this present time so she is not concerned about her safety now. I have advised her about the services that every women's house has in case there are any issues that occur. 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 She uses an Albuterol Inhaler PRN.TKRN History of stomach ulcers 02/07/20142013 Overview: 02/07/2014.She was treated for a stomach ulcer when she was in high school. TKRN Nausea/vomiting in 02/07/2014 Overview: 02/07/2014Patient is complaining of nausea in . She denies any vomiting. She wishes to try vitamin B6 100 mg daily. Advised patient to call/come in if she is unable to keep any food or fluids down in a 24-hour period. TKRN Group B streptococcal infect ion in child of prior , currently 02/07/2014 01/28/2016 Overview: 02/07/2014Patient states that her previous baby was hospitalized for approximately 3 weeks on and off beginning at age 5 weeks for positive group B strep infection. Nata Small BSN RN Fundal height low for dates 07/12/201203/2014 Supervision of normal 02/24/2012 01/28/2016 Overview: XX GBS (group B streptococcus) UTI complicating pre gnancy 02/24/2012 02/07/2014 Overview: 04/22 - MARINE negative - KK Abdominal pain, left lower quadrant 01/10/2010 02/24/2012 Supervision of normal first 11/08/2009 02/24/2012 documented as of this encounter (statuses as of 06/11/2022) [facility] History of Past illness Narrative* Problem Noted Date Resolved Date Intact amniotic membranes du ring in third trimester 04/09/2022 04/09/2022 Overview: - Reporting LOF in the afternoon - Nitrazine negative - Ferning negative - No pooling on speculum Indication for care in labor or delivery 022 04/11/2022 Overview: of girl Largest prior delivery [id number] Uterine contractions 04/08/2022 04/09/2022 Overview: - Reactive NST and Cat I - Contractions q 4-7 mins - Cervix /-1 Of note, this is minimal change from 12 hours prior Offered pt observation Thoroughly reviewed labor precautions Sign out to night team No leakage of amniotic fluid into vagina 022 04/09/2022 Overview: No pooling, no ferning, nitrazine neg Benign gestational thrombocytopenia in third tri mester 02/07/2022 04/09/2022 Overview: 02/07/22 Plt 137. Admission plt UTI (urinary tract infection) in , ante 11/19/2021 04/09/2022 Overview: 11/15/21-UTI ecoli. Treated with Macrobid. Urine MARINE next visit. Estefania Slater APRN.CNM Well adult exam 11/13/2021 04/09/2022 Overview: last done: 11/13/2021 Encounter for screening for diabetes mellitus 04/09/2022 Anemia during in first trimester 10/1604/09/2022 Unplanned 08/26/2021 04/09/2022 Overview: 11/13/2021 Her and her plan to keep baby. FOB is not involved. SW 08/26/2021 Patient admits that she has not told her that she is yet. She states that she and her have been having problems for some time and that she was unfaithful to him. The father of the baby is not involved. She states he is undocumented. She states that she wants to to adopt the baby out to her cousin at this time who is going through infertility. She states she wants this 'burden to turn into a beauty'. I have given her information on [facility]. Patient does state that her may have an alcohol issue. Denies any abuse in the past. She states he is not living with them at this present time so she is not concerned about her safety now. I have advised her about the services that every women's house has in case there are any issues that occur. 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 She uses an Albuterol Inhaler PRN.TKRN History of stomach ulcers 02/07/20142013 Overview: 02/07/2014.She was treated for a stomach ulcer when she was in high school. TKRN Nausea/vomiting in 02/07/2014 Overview: 02/07/2014Patient is complaining of nausea in . She denies any vomiting. She wishes to try vitamin B6 100 mg daily. Advised patient to call/come in if she is unable to keep any food or fluids down in a 24-hour period. TKRN Group B streptococcal infect ion in child of prior , currently 02/07/2014 01/28/2016 Overview: 02/07/2014Patient states that her previous baby was hospitalized for approximately 3 weeks on and off beginning at age 5 weeks for positive group B strep infection. Nata MCBRIDEN RN Fundal height low for dates 07/12/201203/2014 Supervision of normal 02/24/2012 01/28/2016 Overview: XX GBS (group B streptococcus) UTI complicating pre gnancy 02/24/2012 02/07/2014 Overview: 04/22 - MARINE negative - KK Abdominal pain, left lower quadrant 01/10/2010 02/24/2012 Supervision of normal first 11/08/2009 02/24/2012 documented as of this encounter (statuses as of 06/16/2022) [facility] History of Past illness Narrative* Problem Noted Date Resolved Date Intact amniotic membranes du ring in third trimester 04/09/2022 04/09/2022 Overview: - Reporting LOF in the afternoon - Nitrazine negative - Ferning negative - No pooling on speculum Indication for care in labor or delivery 022 04/11/2022 Overview: of infant girl Largest prior delivery [id number] Uterine contractions 04/08/2022 04/09/2022 Overview: - Reactive NST and Cat I - Contractions q 4-7 mins - Cervix 4/70/-1 Of note, this is minimal change from 12 hours prior Offered pt observation Thoroughly reviewed labor precautions Sign out to night team No leakage of amniotic fluid into vagina 022 04/09/2022 Overview: No pooling, no ferning, nitrazine neg Benign gestational thrombocytopenia in third tri mester 02/07/2022 04/09/2022 Overview: 02/07/22 Plt 137. Admission plt UTI (urinary tract infection) in , ante 11/19/2021 04/09/2022 Overview: 11/15/21-UTI ecoli. Treated with Macrobid. Urine MARINE next visit. Estefania Slater APRN.LIANNEM Well adult exam 11/13/2021 04/09/2022 Overview: last done: 11/13/2021 Encounter for screening for diabetes mellitus 04/09/2022 Anemia during in first trimester 10/1604/09/2022 Unplanned 08/26/2021 04/09/2022 Overview: 11/13/2021 Her and her plan to keep baby. FOB is not involved. SW 08/26/2021 Patient admits that she has not told her that she is yet. She states that she and her have been having problems for some time and that she was unfaithful to him. The father of the baby is not involved. She states he is undocumented. She states that she wants to to adopt the baby out to her cousin at this time who is going through infertility. She states she wants this 'burden to turn into a beauty'. I have given her information on [facility]. Patient does state that her may have an alcohol issue. Denies any abuse in the past. She states he is not living with them at this present time so she is not concerned about her safety now. I have advised her about the services that every women's house has in case there are any issues that occur. 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 She uses an Albuterol Inhaler PRN.TKRN History of stomach ulcers 02/07/20142013 Overview: 02/07/2014.She was treated for a stomach ulcer when she was in high school. TKRN Nausea/vomiting in 02/07/2014 Overview: 02/07/2014Patient is complaining of nausea in . She denies any vomiting. She wishes to try vitamin B6 100 mg daily. Advised patient to call/come in if she is unable to keep any food or fluids down in a 24-hour period. TKRN Group B streptococcal infect ion in child of prior , currently 02/07/2014 01/28/2016 Overview: 02/07/2014Patient states that her previous baby was hospitalized for approximately 3 weeks on and off beginning at age 5 weeks for positive group B strep infection. Nata Small BSN RN Fundal height low for dates 07/12/201203/2014 Supervision of normal 02/24/2012 01/28/2016 Overview: XX GBS (group B streptococcus) UTI complicating pre gnancy 02/24/2012 02/07/2014 Overview: 04/22 - MARINE negative - KK Abdominal pain, left lower quadrant 01/10/2010 02/24/2012 Supervision of normal first 11/08/2009 02/24/2012 documented as of this encounter (statuses as of 06/19/2022) [facility] History of Past illness Narrative* Problem Noted Date Resolved Date Intact amniotic membranes du ring in third trimester 04/09/2022 04/09/2022 Overview: - Reporting LOF in the afternoon - Nitrazine negative - Ferning negative - No pooling on speculum Indication for care in labor or delivery 04/11/2022 Overview: of infant girl Largest prior delivery [id number] Uterine contractions 04/08/2022 04/09/2022 Overview: - Reactive NST and Cat I - Contractions q 4-7 mins - Cervix 4/70/-1 Of note, this is minimal change from 12 hours prior Offered pt observation Thoroughly reviewed labor precautions Sign out to night team No leakage of amniotic fluid into vagina 022 04/09/2022 Overview: No pooling, no ferning, nitrazine neg Benign gestational thrombocytopenia in third tri mester 02/07/2022 04/09/2022 Overview: 02/07/22 Plt 137. Admission plt UTI (urinary tract infection) in , ante 11/19/2021 04/09/2022 Overview: 11/15/21-UTI ecoli. Treated with Macrobid. Urine MARINE next visit. Estefania Slater APRN.CNM Well adult exam 11/13/2021 04/09/2022 Overview: last done: 11/13/2021 Encounter for screening for diabetes mellitus 04/09/2022 Anemia during in first trimester 10/1604/09/2022 Unplanned 08/26/2021 04/09/2022 Overview: 11/13/2021 Her and her plan to keep baby. FOB is not involved. SW 08/26/2021 Patient admits that she has not told her that she is yet. She states that she and her have been having problems for some time and that she was unfaithful to him. The father of the baby is not involved. She states he is undocumented. She states that she wants to to adopt the baby out to her cousin at this time who is going through infertility. She states she wants this 'burden to turn into a beauty'. I have given her information on [facility]. Patient does state that her may have an alcohol issue. Denies any abuse in the past. She states he is not living with them at this present time so she is not concerned about her safety now. I have advised her about the services that every women's house has in case there are any issues that occur. 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 She uses an Albuterol Inhaler PRN.TKRN History of stomach ulcers 02/07/20142013 Overview: 02/07/2014.She was treated for a stomach ulcer when she was in high school. TKRN Nausea/vomiting in 02/07/2014 Overview: 02/07/2014Patient is complaining of nausea in . She denies any vomiting. She wishes to try vitamin B6 100 mg daily. Advised patient to call/come in if she is unable to keep any food or fluids down in a 24-hour period. TKRN Group B streptococcal infect ion in child of prior , currently 02/07/2014 01/28/2016 Overview: 02/07/2014Patient states that her previous baby was hospitalized for approximately 3 weeks on and off beginning at age 5 weeks for positive group B strep infection. Nata MCBRIDEN RN Fundal height low for dates 07/12/201203/2014 Supervision of normal 02/24/2012 01/28/2016 Overview: XX GBS (group B streptococcus) UTI complicating pre gnancy 02/24/2012 02/07/2014 Overview: 04/22 - MARINE negative - KK Abdominal pain, left lower quadrant 01/10/2010 02/24/2012 Supervision of normal first 11/08/2009 02/24/2012 documented as of this encounter (statuses as of 07/17/2022) [facility] History of Past illness Narrative* Problem Noted Date Resolved Date Intact amniotic membranes du ring in third trimester 04/09/2022 04/09/2022 Overview: - Reporting LOF in the afternoon - Nitrazine negative - Ferning negative - No pooling on speculum Indication for care in labor or delivery 022 04/11/2022 Overview: of girl Largest prior delivery [id number] Uterine contractions 04/08/2022 04/09/2022 Overview: - Reactive NST and Cat I - Contractions q 4-7 mins - Cervix 4/70/-1 Of note, this is minimal change from 12 hours prior Offered pt observation Thoroughly reviewed labor precautions Sign out to night team No leakage of amniotic fluid into vagina 022 04/09/2022 Overview: No pooling, no ferning, nitrazine neg Benign gestational thrombocytopenia in third tri mester 02/07/2022 04/09/2022 Overview: 02/07/22 Plt 137. Admission plt UTI (urinary tract infection) in , ante 11/19/2021 04/09/2022 Overview: 11/15/21-UTI ecoli. Treated with Macrobid. Urine MARINE next visit. Estefania Slater APRN.CNM Well adult exam 11/13/2021 04/09/2022 Overview: last done: 11/13/2021 Encounter for screening for diabetes mellitus 04/09/2022 Anemia during in first trimester 10/1604/09/2022 Unplanned 08/26/2021 04/09/2022 Overview: 11/13/2021 Her and her plan to keep baby. FOB is not involved. SW 08/26/2021 Patient admits that she has not told her that she is yet. She states that she and her have been having problems for some time and that she was unfaithful to him. The father of the baby is not involved. She states he is undocumented. She states that she wants to to adopt the baby out to her cousin at this time who is going through infertility. She states she wants this 'burden to turn into a beauty'. I have given her information on [facility]. Patient does state that her may have an alcohol issue. Denies any abuse in the past. She states he is not living with them at this present time so she is not concerned about her safety now. I have advised her about the services that every women's house has in case there are any issues that occur. 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 She uses an Albuterol Inhaler PRN.TKRN History of stomach ulcers 02/07/20142013 Overview: 02/07/2014.She was treated for a stomach ulcer when she was in high school. TKRN Nausea/vomiting in 02/07/2014 Overview: 02/07/2014Patient is complaining of nausea in . She denies any vomiting. She wishes to try vitamin B6 100 mg daily. Advised patient to call/come in if she is unable to keep any food or fluids down in a 24-hour period. TKRN Group B streptococcal infect ion in child of prior , currently 02/07/2014 01/28/2016 Overview: 02/07/2014Patient states that her previous baby was hospitalized for approximately 3 weeks on and off beginning at age 5 weeks for positive group B strep infection. Nata MCBRIDEN RN Fundal height low for dates 07/12/2012 05/0 03/2014 Supervision of normal 02/24/2012 01/28/2016 Overview: XX GBS (group B streptococcus) UTI complicating pre gnancy 02/24/2012 02/07/2014 Overview: 04/22 - MARINE negative - KK Abdominal pain, left lower quadrant 01/10/2010 02/24/2012 Supervision of normal first 11/08/2009 02/24/2012 documented as of this encounter (statuses as of 07/25/2022) [facility] History of Past illness Narrative* Problem Noted Date Resolved Date Intact amniotic membranes du ring in third trimester 04/09/2022 04/09/2022 Overview: - Reporting LOF in the afternoon - Nitrazine negative - Ferning negative - No pooling on speculum Indication for care in labor or delivery 022 04/11/2022 Overview: of girl Largest prior delivery [id number] Uterine contractions 04/08/2022 04/09/2022 Overview: - Reactive NST and Cat I - Contractions q 4-7 mins - Cervix 4/70/-1 Of note, this is minimal change from 12 hours prior Offered pt observation Thoroughly reviewed labor precautions Sign out to night team No leakage of amniotic fluid into vagina 022 04/09/2022 Overview: No pooling, no ferning, nitrazine neg Benign gestational thrombocytopenia in third tri mester 02/07/2022 04/09/2022 Overview: 02/07/22 Plt 137. Admission plt UTI (urinary tract infection) in , ante 11/19/2021 04/09/2022 Overview: 11/15/21-UTI ecoli. Treated with Macrobid. Urine MARINE next visit. Estefania Slater APRN.CNM Well adult exam 11/13/2021 04/09/2022 Overview: last done: 11/13/2021 Encounter for screening for diabetes mellitus 04/09/2022 Anemia during in first trimester 10/1604/09/2022 Unplanned 08/26/2021 04/09/2022 Overview: 11/13/2021 Her and her plan to keep baby. FOB is not involved. SW 08/26/2021 Patient admits that she has not told her that she is yet. She states that she and her have been having problems for some time and that she was unfaithful to him. The father of the baby is not involved. She states he is undocumented. She states that she wants to to adopt the baby out to her cousin at this time who is going through infertility. She states she wants this 'burden to turn into a beauty'. I have given her information on [facility]. Patient does state that her may have an alcohol issue. Denies any abuse in the past. She states he is not living with them at this present time so she is not concerned about her safety now. I have advised her about the services that every women's house has in case there are any issues that occur. 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 She uses an Albuterol Inhaler PRN.TKRN History of stomach ulcers 02/07/20142013 Overview: 02/07/2014.She was treated for a stomach ulcer when she was in high school. TKRN Nausea/vomiting in 02/07/2014 Overview: 02/07/2014Patient is complaining of nausea in . She denies any vomiting. She wishes to try vitamin B6 100 mg daily. Advised patient to call/come in if she is unable to keep any food or fluids down in a 24-hour period. TKRN Group B streptococcal infect ion in child of prior , currently 02/07/2014 01/28/2016 Overview: 02/07/2014Patient states that her previous baby was hospitalized for approximately 3 weeks on and off beginning at age 5 weeks for positive group B strep infection. Nata MCBRIDEN RN Fundal height low for dates 07/12/201203/2014 Supervision of normal 02/24/2012 01/28/2016 Overview: XX GBS (group B streptococcus) UTI complicating pre gnancy 02/24/2012 02/07/2014 Overview: 04/22 - MARINE negative - KK Abdominal pain, left lower quadrant 01/10/2010 02/24/2012 Supervision of normal first 11/08/2009 02/24/2012 documented as of this encounter (statuses as of 08/07/2022) [facility] of Past illness Narrative* Problem Noted Date Resolved Date Intact amniotic membranes du ring in third trimester 04/09/2022 04/09/2022 Overview: - Reporting LOF in the afternoon - Nitrazine negative - Ferning negative - No pooling on speculum Indication for care in labor or delivery 022 04/11/2022 Overview: of girl Largest prior delivery [id number] Uterine contractions 04/08/2022 04/09/2022 Overview: - Reactive NST and Cat I - Contractions q 4-7 mins - Cervix 70/-1 Of note, this is minimal change from 12 hours prior Offered pt observation Thoroughly reviewed labor precautions Sign out to night team No leakage of amniotic fluid into vagina 022 04/09/2022 Overview: No pooling, no ferning, nitrazine neg Benign gestational thrombocytopenia in third tri mester 02/07/2022 04/09/2022 Overview: 02/07/22 Plt 137. Admission plt UTI (urinary tract infection) in , ante 11/19/2021 04/09/2022 Overview: 11/15/21-UTI ecoli. Treated with Macrobid. Urine MARINE next visit. Estefania Slater APRN.CNM Well adult exam 11/13/2021 04/09/2022 Overview: last done: 11/13/2021 Encounter for screening for diabetes mellitus 04/09/2022 Anemia during in first trimester 10/1604/09/2022 Unplanned 08/26/2021 04/09/2022 Overview: 11/13/2021 Her and her plan to keep baby. FOB is not involved. SW 08/26/2021 Patient admits that she has not told her that she is yet. She states that she and her have been having problems for some time and that she was unfaithful to him. The father of the baby is not involved. She states he is undocumented. She states that she wants to to adopt the baby out to her cousin at this time who is going through infertility. She states she wants this 'burden to turn into a beauty'. I have given her information on [facility]. Patient does state that her may have an alcohol issue. Denies any abuse in the past. She states he is not living with them at this present time so she is not concerned about her safety now. I have advised her about the services that every women's house has in case there are any issues that occur. 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 She uses an Albuterol Inhaler PRN.TKRN History of stomach ulcers 02/07/20142013 Overview: 02/07/2014.She was treated for a stomach ulcer when she was in high school. TKRN Nausea/vomiting in 02/07/2014 Overview: 02/07/2014Patient is complaining of nausea in . She denies any vomiting. She wishes to try vitamin B6 100 mg daily. Advised patient to call/come in if she is unable to keep any food or fluids down in a 24-hour period. TKRN Group B streptococcal infect ion in child of prior , currently 02/07/2014 01/28/2016 Overview: 02/07/2014Patient states that her previous baby was hospitalized for approximately 3 weeks on and off beginning at age 5 weeks for positive group B strep infection. Nata Small BSN RN Fundal height low for dates 07/12/201203/2014 Supervision of normal 02/24/2012 01/28/2016 Overview: XX GBS (group B streptococcus) UTI complicating pre gnancy 02/24/2012 02/07/2014 Overview: 04/22 - MARINE negative - KK Abdominal pain, left lower quadrant 01/10/2010 02/24/2012 Supervision of normal first 11/08/2009 02/24/2012 documented as of this encounter (statuses as of 09/04/2022) [facility] of Past illness Narrative* Problem Noted Date Resolved Date Intact amniotic membranes du ring in third trimester 04/09/2022 04/09/2022 Overview: - Reporting LOF in the afternoon - Nitrazine negative - Ferning negative - No pooling on speculum Indication for care in labor or delivery 022 04/11/2022 Overview: of infant girl Largest prior delivery [id number] Uterine contractions 04/08/2022 04/09/2022 Overview: - Reactive NST and Cat I - Contractions q 4-7 mins - Cervix 70/-1 Of note, this is minimal change from 12 hours prior Offered pt observation Thoroughly reviewed labor precautions Sign out to night team No leakage of amniotic fluid into vagina 022 04/09/2022 Overview: No pooling, no ferning, nitrazine neg Benign gestational thrombocytopenia in third tri mester 02/07/2022 04/09/2022 Overview: 02/07/22 Plt 137. Admission plt UTI (urinary tract infection) in , ante 11/19/2021 04/09/2022 Overview: 11/15/21-UTI ecoli. Treated with Macrobid. Urine MARINE next visit. Estefania Slater APRN.CNM Well adult exam 11/13/2021 04/09/2022 Overview: last done: 11/13/2021 Encounter for screening for diabetes mellitus 04/09/2022 Anemia during in first trimester 10/1604/09/2022 Unplanned 08/26/2021 04/09/2022 Overview: 11/13/2021 Her and her plan to keep baby. FOB is not involved. SW 08/26/2021 Patient admits that she has not told her that she is yet. She states that she and her have been having problems for some time and that she was unfaithful to him. The father of the baby is not involved. She states he is undocumented. She states that she wants to to adopt the baby out to her cousin at this time who is going through infertility. She states she wants this 'burden to turn into a beauty'. I have given her information on [facility]. Patient does state that her may have an alcohol issue. Denies any abuse in the past. She states he is not living with them at this present time so she is not concerned about her safety now. I have advised her about the services that every women's house has in case there are any issues that occur. 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 She uses an Albuterol Inhaler PRN.TKRN History of stomach ulcers 02/07/20142013 Overview: 02/07/2014.She was treated for a stomach ulcer when she was in high school. TKRN Nausea/vomiting in 02/07/2014 Overview: 02/07/2014Patient is complaining of nausea in . She denies any vomiting. She wishes to try vitamin B6 100 mg daily. Advised patient to call/come in if she is unable to keep any food or fluids down in a 24-hour period. TKRN Group B streptococcal infect ion in child of prior , currently 02/07/2014 01/28/2016 Overview: 02/07/2014Patient states that her previous baby was hospitalized for approximately 3 weeks on and off beginning at age 5 weeks for positive group B strep infection. Nata Small BSN RN Fundal height low for dates 07/12/2012 0503/2014 Supervision of normal 02/24/2012 01/28/2016 Overview: XX GBS (group B streptococcus) UTI complicating pre gnancy 02/24/2012 02/07/2014 Overview: 04/22 - MARINE negative - KK Abdominal pain, left lower quadrant 01/10/2010 02/24/2012 Supervision of normal first 11/08/2009 02/24/2012 documented as of this encounter (statuses as of 09/26/2022) [facility] History of Past illness Narrative* Problem Noted Date Resolved Date Intact amniotic membranes du ring in third trimester 04/09/2022 04/09/2022 Overview: - Reporting LOF in the afternoon - Nitrazine negative - Ferning negative - No pooling on speculum Indication for care in labor or delivery 022 04/11/2022 Overview: of infant girl Largest prior delivery [id number] Uterine contractions 04/08/2022 04/09/2022 Overview: - Reactive NST and Cat I - Contractions q 4-7 mins - Cervix 4/70/-1 Of note, this is minimal change from 12 hours prior Offered pt observation Thoroughly reviewed labor precautions Sign out to night team No leakage of amniotic fluid into vagina 022 04/09/2022 Overview: No pooling, no ferning, nitrazine neg Benign gestational thrombocytopenia in third tri mester 02/07/2022 04/09/2022 Overview: 02/07/22 Plt 137. Admission plt UTI (urinary tract infection) in , ante 11/19/2021 04/09/2022 Overview: 11/15/21-UTI ecoli. Treated with Macrobid. Urine MARINE next visit. Estefania Slater APRN.CNM Well adult exam 11/13/2021 04/09/2022 Overview: last done: 11/13/2021 Encounter for screening for diabetes mellitus 04/09/2022 Anemia during in first trimester 10/1604/09/2022 Unplanned 08/26/2021 04/09/2022 Overview: 11/13/2021 Her and her plan to keep baby. FOB is not involved. SW 08/26/2021 Patient admits that she has not told her that she is yet. She states that she and her have been having problems for some time and that she was unfaithful to him. The father of the baby is not involved. She states he is undocumented. She states that she wants to to adopt the baby out to her cousin at this time who is going through infertility. She states she wants this 'burden to turn into a beauty'. I have given her information on [facility]. Patient does state that her may have an alcohol issue. Denies any abuse in the past. She states he is not living with them at this present time so she is not concerned about her safety now. I have advised her about the services that every women's house has in case there are any issues that occur. 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 She uses an Albuterol Inhaler PRN.TKRN History of stomach ulcers 02/07/20142013 Overview: 02/07/2014.She was treated for a stomach ulcer when she was in high school. TKRN Nausea/vomiting in 02/07/2014 Overview: 02/07/2014Patient is complaining of nausea in . She denies any vomiting. She wishes to try vitamin B6 100 mg daily. Advised patient to call/come in if she is unable to keep any food or fluids down in a 24-hour period. TKRN Group B streptococcal infect ion in child of prior , currently 02/07/2014 01/28/2016 Overview: 02/07/2014Patient states that her previous baby was hospitalized for approximately 3 weeks on and off beginning at age 5 weeks for positive group B strep infection. Nata Small BSN RN Fundal height low for dates 07/12/201203/2014 Supervision of normal 02/24/2012 01/28/2016 Overview: XX GBS (group B streptococcus) UTI complicating pre gnancy 02/24/2012 02/07/2014 Overview: 04/22 - MARINE negative - KK Abdominal pain, left lower quadrant 01/10/2010 02/24/2012 Supervision of normal first 11/08/2009 02/24/2012 documented as of this encounter (statuses as of 10/06/2022) [facility] History of Past illness Narrative* Problem Noted Date Resolved Date Intact amniotic membranes du ring in third trimester 04/09/2022 04/09/2022 Overview: - Reporting LOF in the afternoon - Nitrazine negative - Ferning negative - No pooling on speculum Indication for care in labor or delivery 022 04/11/2022 Overview: of infant girl Largest prior delivery [id number] Uterine contractions 04/08/2022 04/09/2022 Overview: - Reactive NST and Cat I - Contractions q 4-7 mins - Cervix 4/70/-1 Of note, this is minimal change from 12 hours prior Offered pt observation Thoroughly reviewed labor precautions Sign out to night team No leakage of amniotic fluid into vagina 022 04/09/2022 Overview: No pooling, no ferning, nitrazine neg Benign gestational thrombocytopenia in third tri mester 02/07/2022 04/09/2022 Overview: 02/07/22 Plt 137. Admission plt UTI (urinary tract infection) in , ante 11/19/2021 04/09/2022 Overview: 11/15/21-UTI ecoli. Treated with Macrobid. Urine MARINE next visit. Estefania Slater APRN.CNM Well adult exam 11/13/2021 04/09/2022 Overview: last done: 11/13/2021 Encounter for screening for diabetes mellitus 04/09/2022 Anemia during in first trimester 10/1604/09/2022 Unplanned 08/26/2021 04/09/2022 Overview: 11/13/2021 Her and her plan to keep baby. FOB is not involved. SW 08/26/2021 Patient admits that she has not told her that she is yet. She states that she and her have been having problems for some time and that she was unfaithful to him. The father of the baby is not involved. She states he is undocumented. She states that she wants to to adopt the baby out to her cousin at this time who is going through infertility. She states she wants this 'burden to turn into a beauty'. I have given her information on [facility]. Patient does state that her may have an alcohol issue. Denies any abuse in the past. She states he is not living with them at this present time so she is not concerned about her safety now. I have advised her about the services that every women's house has in case there are any issues that occur. 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 She uses an Albuterol Inhaler PRN.TKRN History of stomach ulcers 02/07/20142013 Overview: 02/07/2014.She was treated for a stomach ulcer when she was in high school. TKRN Nausea/vomiting in 02/07/2014 Overview: 02/07/2014Patient is complaining of nausea in . She denies any vomiting. She wishes to try vitamin B6 100 mg daily. Advised patient to call/come in if she is unable to keep any food or fluids down in a 24-hour period. TKRN Group B streptococcal infect ion in child of prior , currently 02/07/2014 01/28/2016 Overview: 02/07/2014Patient states that her previous baby was hospitalized for approximately 3 weeks on and off beginning at age 5 weeks for positive group B strep infection. Nata MCBRIDEN RN Fundal height low for dates 07/12/201203/2014 Supervision of normal 02/24/2012 01/28/2016 Overview: XX GBS (group B streptococcus) UTI complicating pre gnancy 02/24/2012 02/07/2014 Overview: 04/22 - MARINE negative - KK Abdominal pain, left lower quadrant 01/10/2010 02/24/2012 Supervision of normal first 11/08/2009 02/24/2012 documented as of this encounter (statuses as of 11/03/2022) [facility] History of Past illness Narrative* Problem Noted Date Resolved Date Intact amniotic membranes du ring in third trimester 04/09/2022 04/09/2022 Overview: - Reporting LOF in the afternoon - Nitrazine negative - Ferning negative - No pooling on speculum Indication for care in labor or delivery 022 04/11/2022 Overview: of girl Largest prior delivery [id number] Uterine contractions 04/08/2022 04/09/2022 Overview: - Reactive NST and Cat I - Contractions q 4-7 mins - Cervix 70/-1 Of note, this is minimal change from 12 hours prior Offered pt observation Thoroughly reviewed labor precautions Sign out to night team No leakage of amniotic fluid into vagina 022 04/09/2022 Overview: No pooling, no ferning, nitrazine neg Benign gestational thrombocytopenia in third tri mester 02/07/2022 04/09/2022 Overview: 02/07/22 Plt 137. Admission plt UTI (urinary tract infection) in , ante 11/19/2021 04/09/2022 Overview: 11/15/21-UTI ecoli. Treated with Macrobid. Urine MARINE next visit. Estefania Slater APRN.LIANNEM Well adult exam 11/13/2021 04/09/2022 Overview: last done: 11/13/2021 Encounter for screening for diabetes mellitus 04/09/2022 Anemia during in first trimester 10/1604/09/2022 Unplanned 08/26/2021 04/09/2022 Overview: 11/13/2021 Her and her plan to keep baby. FOB is not involved. SW 08/26/2021 Patient admits that she has not told her that she is yet. She states that she and her have been having problems for some time and that she was unfaithful to him. The father of the baby is not involved. She states he is undocumented. She states that she wants to to adopt the baby out to her cousin at this time who is going through infertility. She states she wants this 'burden to turn into a beauty'. I have given her information on [facility]. Patient does state that her may have an alcohol issue. Denies any abuse in the past. She states he is not living with them at this present time so she is not concerned about her safety now. I have advised her about the services that every women's house has in case there are any issues that occur. 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 She uses an Albuterol Inhaler PRN.TKRN History of stomach ulcers 02/07/20142013 Overview: 02/07/2014.She was treated for a stomach ulcer when she was in high school. TKRN Nausea/vomiting in 02/07/2014 Overview: 02/07/2014Patient is complaining of nausea in . She denies any vomiting. She wishes to try vitamin B6 100 mg daily. Advised patient to call/come in if she is unable to keep any food or fluids down in a 24-hour period. TKRN Group B streptococcal infect ion in child of prior , currently 02/07/2014 01/28/2016 Overview: 02/07/2014Patient states that her previous baby was hospitalized for approximately 3 weeks on and off beginning at age 5 weeks for positive group B strep infection. Nata MCBRIDEN RN Fundal height low for dates 07/12/2012 05/0 03/2014 Supervision of normal 02/24/2012 01/28/2016 Overview: XX GBS (group B streptococcus) UTI complicating pre gnancy 02/24/2012 02/07/2014 Overview: 04/22 - MARINE negative - KK Abdominal pain, left lower quadrant 01/10/2010 02/24/2012 Supervision of normal first 11/08/2009 02/24/2012 documented as of this encounter (statuses as of 01/04/2023) [facility] History of Past illness Narrative* Problem Noted Date Resolved Date Intact amniotic membranes du ring in third trimester 04/09/2022 04/09/2022 Overview: - Reporting LOF in the afternoon - Nitrazine negative - Ferning negative - No pooling on speculum Indication for care in labor or delivery 04/11/2022 Overview: of girl Largest prior delivery [id number] Uterine contractions 04/08/2022 04/09/2022 Overview: - Reactive NST and Cat I - Contractions q 4-7 mins - Cervix 4/70/-1 Of note, this is minimal change from 12 hours prior Offered pt observation Thoroughly reviewed labor precautions Sign out to night team No leakage of amniotic fluid into vagina 04/09/2022 Overview: No pooling, no ferning, nitrazine neg Benign gestational thrombocytopenia in third tri mester 02/07/2022 04/09/2022 Overview: 02/07/22 Plt 137. Admission plt UTI (urinary tract infection) in , ante 11/19/2021 04/09/2022 Overview: 11/15/21-UTI ecoli. Treated with Macrobid. Urine MARINE next visit. Estefania Slater APRN.CNM Well adult exam 11/13/2021 04/09/2022 Overview: last done: 11/13/2021 Encounter for screening for diabetes mellitus 04/09/2022 Anemia during in first trimester 10/1604/09/2022 Unplanned 08/26/2021 04/09/2022 Overview: 11/13/2021 Her and her plan to keep baby. FOB is not involved. SW 08/26/2021 Patient admits that she has not told her that she is yet. She states that she and her have been having problems for some time and that she was unfaithful to him. The father of the baby is not involved. She states he is undocumented. She states that she wants to to adopt the baby out to her cousin at this time who is going through infertility. She states she wants this 'burden to turn into a beauty'. I have given her information on [facility]. Patient does state that her may have an alcohol issue. Denies any abuse in the past. She states he is not living with them at this present time so she is not concerned about her safety now. I have advised her about the services that every women's house has in case there are any issues that occur. 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 She uses an Albuterol Inhaler PRN.TKRN History of stomach ulcers 02/07/20142013 Overview: 02/07/2014.She was treated for a stomach ulcer when she was in high school. TKRN Nausea/vomiting in 02/07/2014 Overview: 02/07/2014Patient is complaining of nausea in . She denies any vomiting. She wishes to try vitamin B6 100 mg daily. Advised patient to call/come in if she is unable to keep any food or fluids down in a 24-hour period. TKRN Group B streptococcal infect ion in child of prior , currently 02/07/2014 01/28/2016 Overview: 02/07/2014Patient states that her previous baby was hospitalized for approximately 3 weeks on and off beginning at age 5 weeks for positive group B strep infection. Nata Small BSN RN Fundal height low for dates 07/12/201203/2014 Supervision of normal 02/24/2012 01/28/2016 Overview: XX GBS (group B streptococcus) UTI complicating pre gnancy 02/24/2012 02/07/2014 Overview: 04/22 - MARINE negative - KK Abdominal pain, left lower quadrant 01/10/2010 02/24/2012 Supervision of normal first 11/08/2009 02/24/2012 documented as of this encounter (statuses as of 01/06/2023) [facility] History of Past illness Narrative* Problem Noted Date Resolved Date Intact amniotic membranes du ring in third trimester 04/09/2022 04/09/2022 Overview: - Reporting LOF in the afternoon - Nitrazine negative - Ferning negative - No pooling on speculum Indication for care in labor or delivery 04/11/2022 Overview: of girl Largest prior delivery [id number] Uterine contractions 04/08/2022 04/09/2022 Overview: - Reactive NST and Cat I - Contractions q 4-7 mins - Cervix 4/70/-1 Of note, this is minimal change from 12 hours prior Offered pt observation Thoroughly reviewed labor precautions Sign out to night team No leakage of amniotic fluid into vagina 022 04/09/2022 Overview: No pooling, no ferning, nitrazine neg Benign gestational thrombocytopenia in third tri mester 02/07/2022 04/09/2022 Overview: 02/07/22 Plt 137. Admission plt UTI (urinary tract infection) in , ante 11/19/2021 04/09/2022 Overview: 11/15/21-UTI ecoli. Treated with Macrobid. Urine MARINE next visit. Estefania Slater APRN.CNM Well adult exam 11/13/2021 04/09/2022 Overview: last done: 11/13/2021 Encounter for screening for diabetes mellitus 04/09/2022 Anemia during in first trimester 10/1604/09/2022 Unplanned 08/26/2021 04/09/2022 Overview: 11/13/2021 Her and her plan to keep baby. FOB is not involved. SW 08/26/2021 Patient admits that she has not told her that she is yet. She states that she and her have been having problems for some time and that she was unfaithful to him. The father of the baby is not involved. She states he is undocumented. She states that she wants to to adopt the baby out to her cousin at this time who is going through infertility. She states she wants this 'burden to turn into a beauty'. I have given her information on [facility]. Patient does state that her may have an alcohol issue. Denies any abuse in the past. She states he is not living with them at this present time so she is not concerned about her safety now. I have advised her about the services that every women's house has in case there are any issues that occur. 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 She uses an Albuterol Inhaler PRN.TKRN History of stomach ulcers 02/07/20142013 Overview: 02/07/2014.She was treated for a stomach ulcer when she was in high school. TKRN Nausea/vomiting in 02/07/2014 Overview: 02/07/2014Patient is complaining of nausea in . She denies any vomiting. She wishes to try vitamin B6 100 mg daily. Advised patient to call/come in if she is unable to keep any food or fluids down in a 24-hour period. TKRN Group B streptococcal infect ion in child of prior , currently 02/07/2014 01/28/2016 Overview: 02/07/2014Patient states that her previous baby was hospitalized for approximately 3 weeks on and off beginning at age 5 weeks for positive group B strep infection. Nata MCBRIDEN RN Fundal height low for dates 07/12/201203/2014 Supervision of normal 02/24/2012 01/28/2016 Overview: XX GBS (group B streptococcus) UTI complicating pre gnancy 02/24/2012 02/07/2014 Overview: 04/22 - MARINE negative - KK Abdominal pain, left lower quadrant 01/10/2010 02/24/2012 Supervision of normal first 11/08/2009 02/24/2012 documented as of this encounter (statuses as of 04/10/2023) [facility] of Past illness Narrative* Problem Noted Date Diagnosed Date Resolved Date Intact amniotic membranes du ring in third trimester 04/09/2022 04/09/2022 Overview: - Reporting LOF in the afternoon - Nitrazine negative - Ferning negative - No pooling on speculum Indication for care in labor or delivery 04/09/2022 04/11/2022 Overview: of infant girl Largest prior delivery [id number] Uterine contractions 04/08/2022 022 Overview: - Reactive NST and Cat I - Contractions q 4-7 mins - Cervix /70/-1 Of note, this is minimal change from 12 hours prior Offered pt observation Thoroughly reviewed labor precautions Sign out to night team No leakage of amniotic fluid into vagina 04/08/2022 04/09/2022 Overview: No pooling, no ferning, nitrazine neg Benign gestational thrombocy topenia in third trimester 02/07/2022 04/09/2022 Overview: 02/07/22 Plt 137. Admission plt UTI (urinary tract infection ) in , antepartum 11/19/2021 04/09/2022 Overview: 11/15/21-UTI ecoli. Treated with Macrobid. Urine MARINE next visit. Estefania Slater APRN.CNM Well adult exam 11/13/2021 04/09/2022 Overview: last done: 11/13/2021 Encounter for screening for diabetes mellitus 11/13/1904/09/2022 Anemia during in first trimester 10/16/2021 04/09/2022 Unplanned 08/26/2021 04/09/20 Overview: 11/13/2021 Her and her plan to keep baby. FOB is not involved. SW 08/26/2021 Patient admits that she has not told her that she is yet. She states that she and her have been having problems for some time and that she was unfaithful to him. The father of the baby is not involved. She states he is undocumented. She states that she wants to to adopt the baby out to her cousin at this time who is going through infertility. She states she wants this 'burden to turn into a beauty'. I have given her information on [facility]. Patient does state that her may have an alcohol issue. Denies any abuse in the past. She states he is not living with them at this present time so she is not concerned about her safety now. I have advised her about the services that every women's house has in case there are any issues that occur. 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 She uses an Albuterol Inhaler PRN.TKRN History of stomach ulcers 02/07/2014 Overview: 02/07/2014.She was treated for a stomach ulcer when she was in high school. TKRN Nausea/vomiting in 02/07/2014 01/28/2016 Overview: 02/07/2014Patient is complaining of nausea in . She denies any vomiting. She wishes to try vitamin B6 100 mg daily. Advised patient to call/come in if she is unable to keep any food or fluids down in a 24-hour period. TKRN Group B streptococcal infect ion in child of prior , currently 02/07/201401/04 Overview: 02/07/2014Patient states that her previous baby was hospitalized for approximately 3 weeks on and off beginning at age 5 weeks for positive group B strep infection. Nata MCBRIDEN RN Fundal height low for dates 07/12/2012 02/07/2014 Supervision of normal 02/24/2012 01/28/2016 Overview: XX GBS (group B streptococcus) UTI complicating 02/24/2012 02/07/2014 Overview: 04/22 - MARINE negative - KK Abdominal pain, left lower quadrant 01/10/2010 02/24/2012 Supervision of normal first 11/08/2009 02/24/2012 documented as of this encounter (statuses as of 04/15/2023) [facility] History of Past illness Narrative* Problem Noted Date Diagnosed Date Resolved Date Intact amniotic membranes du ring in third trimester 04/09/2022 04/09/2022 Overview: - Reporting LOF in the afternoon - Nitrazine negative - Ferning negative - No pooling on speculum Indication for care in labor or delivery 04/09/2022 04/11/2022 Overview: of girl Largest prior delivery [id number] Uterine contractions 04/08/2022 022 Overview: - Reactive NST and Cat I - Contractions q 4-7 mins - Cervix 4/70/-1 Of note, this is minimal change from 12 hours prior Offered pt observation Thoroughly reviewed labor precautions Sign out to night team No leakage of amniotic fluid into vagina 04/08/2022 04/09/2022 Overview: No pooling, no ferning, nitrazine neg Benign gestational thrombocy topenia in third trimester 02/07/2022 04/09/2022 Overview: 02/07/22 Plt 137. Admission plt UTI (urinary tract infection ) in , antepartum 11/19/2021 04/09/2022 Overview: 11/15/21-UTI ecoli. Treated with Macrobid. Urine MARINE next visit. Estefania Slater APRN.CNM Encounter for screening for diabetes mellitus 11/13/1904/09/2022 Anemia during in first trimester 10/16/2021 04/09/2022 Unplanned 08/26/2021 04/09/20 22 Overview: 11/13/2021 Her and her plan to keep baby. FOB is not involved. SW 08/26/2021 Patient admits that she has not told her that she is yet. She states that she and her have been having problems for some time and that she was unfaithful to him. The father of the baby is not involved. She states he is undocumented. She states that she wants to to adopt the baby out to her cousin at this time who is going through infertility. She states she wants this 'burden to turn into a beauty'. I have given her information on [facility]. Patient does state that her may have an alcohol issue. Denies any abuse in the past. She states he is not living with them at this present time so she is not concerned about her safety now. I have advised her about the services that every women's house has in case there are any issues that occur. 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 She uses an Albuterol Inhaler PRN.TKRN History of stomach ulcers 02/07/2014 Overview: 02/07/2014.She was treated for a stomach ulcer when she was in high school. TKRN Nausea/vomiting in 02/07/2014 01/28/2016 Overview: 02/07/2014Patient is complaining of nausea in . She denies any vomiting. She wishes to try vitamin B6 100 mg daily. Advised patient to call/come in if she is unable to keep any food or fluids down in a 24-hour period. TKRN Group B streptococcal infect ion in child of prior , currently 02/07/201401/04 Overview: 02/07/2014Patient states that her previous baby was hospitalized for approximately 3 weeks on and off beginning at age 5 weeks for positive group B strep infection. Nata Small BSN RN Fundal height low for dates 07/12/2012 02/07/2014 Supervision of normal 02/24/2012 01/28/2016 Overview: XX GBS (group B streptococcus) UTI complicating 02/24/2012 02/07/2014 Overview: 04/22 - MARINE negative - KK Abdominal pain, left lower quadrant 01/10/2010 02/24/2012 Supervision of normal first 11/08/2009 02/24/2012 documented as of this encounter (statuses as of 04/22/2023) [facility] History of Past illness Narrative* Problem Noted Date Diagnosed Date Resolved Date Intact amniotic membranes du ring in third trimester 04/09/2022 04/09/2022 Overview: - Reporting LOF in the afternoon - Nitrazine negative - Ferning negative - No pooling on speculum Indication for care in labor or delivery 04/09/2022 04/11/2022 Overview: of infant girl Largest prior delivery [id number] Uterine contractions 04/08/2022 022 Overview: - Reactive NST and Cat I - Contractions q 4-7 mins - Cervix 4/70/-1 Of note, this is minimal change from 12 hours prior Offered pt observation Thoroughly reviewed labor precautions Sign out to night team No leakage of amniotic fluid into vagina 04/08/2022 04/09/2022 Overview: No pooling, no ferning, nitrazine neg Benign gestational thrombocy topenia in third trimester 02/07/2022 04/09/2022 Overview: 02/07/22 Plt 137. Admission plt UTI (urinary tract infection ) in , antepartum 11/19/2021 04/09/2022 Overview: 11/15/21-UTI ecoli. Treated with Macrobid. Urine MARINE next visit. Estefania Slater APRN.CNM Encounter for screening for diabetes mellitus 11/13/1904/09/2022 Anemia during in first trimester 10/16/2021 04/09/2022 Unplanned 08/26/2021 04/09/20 Overview: 11/13/2021 Her and her plan to keep baby. FOB is not involved. SW 08/26/2021 Patient admits that she has not told her that she is yet. She states that she and her have been having problems for some time and that she was unfaithful to him. The father of the baby is not involved. She states he is undocumented. She states that she wants to to adopt the baby out to her cousin at this time who is going through infertility. She states she wants this 'burden to turn into a beauty'. I have given her information on [facility]. Patient does state that her may have an alcohol issue. Denies any abuse in the past. She states he is not living with them at this present time so she is not concerned about her safety now. I have advised her about the services that every women's house has in case there are any issues that occur. TKRN Biliary dyskinesia 12/08/2019 Epigastric pain 11/30/2019 04/09/2022 Post thyroiditis 06/15/201709/05 Vocal cord anomaly 02/07/2014 6 Overview: 02/07/2014She states she was diagnosed with paradoxical vocal cord dysfunction by [facility] at age 11. She uses an Albuterol Inhaler PRN.TKRN History of stomach ulcers 02/07/2014 Overview: 02/07/2014.She was treated for a stomach ulcer when she was in high school. TKRN Nausea/vomiting in 02/07/2014 01/28/2016 Overview: 02/07/2014Patient is complaining of nausea in . She denies any vomiting. She wishes to try vitamin B6 100 mg daily. Advised patient to call/come in if she is unable to keep any food or fluids down in a 24-hour period. TKRN Group B streptococcal infect ion in child of prior , currently 02/07/201401/04 Overview: 02/07/2014Patient states that her previous baby was hospitalized for approximately 3 weeks on and off beginning at age 5 weeks for positive group B strep infection. Nata Small BSN RN Fundal height low for dates 07/12/2012 02/07/2014 Supervision of normal 02/24/2012 01/28/2016 Overview: XX GBS (group B streptococcus) UTI complicating 02/24/2012 02/07/2014 Overview: 04/22 - MARINE negative - KK Abdominal pain, left lower quadrant 01/10/2010 02/24/2012 Supervision of normal first 11/08/2009 02/24/2012 documented as of this encounter (statuses as of 06/04/2023) [facility] History of Past illness Narrative* Problem Noted Date Diagnosed Date Resolved Date Intact amniotic membranes du ring in third trimester 04/09/2022 04/09/2022 Overview: - Reporting LOF in the afternoon - Nitrazine negative - Ferning negative - No pooling on speculum Indication for care in labor or delivery 04/09/2022 04/11/2022 Overview: of infant girl Largest prior delivery [id number] Uterine contractions 04/08/2022 022 Overview: - Reactive NST and Cat I - Contractions q 4-7 mins - Cervix 4/70/-1 Of note, this is minimal change from 12 hours prior Offered pt observation Thoroughly reviewed labor precautions Sign out to night team No leakage of amniotic fluid into vagina 04/08/2022 04/09/2022 Overview: No pooling, no ferning, nitrazine neg Benign gestational thrombocy topenia in third trimester 02/07/2022 04/09/2022 Overview: 02/07/22 Plt 137. Admission plt UTI (urinary tract infection ) in , antepartum 11/19/2021 04/09/2022 Overview: 11/15/21-UTI ecoli. Treated with Macrobid. Urine MARINE next visit. Estefania Slater APRN.CNM Encounter for screening for diabetes mellitus 11/13/1904/09/2022 Anemia during in first trimester 10/16/2021 04/09/2022 Unplanned 08/26/2021 04/09/20 Overview: 11/13/2021 Her and her plan to keep baby. FOB is not involved. SW 08/26/2021 Patient admits that she has not told her that she is yet. She states that she and her have been having problems for some time and that she was unfaithful to him. The father of the baby is not involved. She states he is undocumented. She states that she wants to to adopt the baby out to her cousin at this time who is going through infertility. She states she wants this 'burden to turn into a beauty'. I have given her information on [facility]. Patient does state that her may have an alcohol issue. Denies any abuse in the past. She states he is not living with them at this present time so she is not concerned about her safety now. I have advised her about the services that every women's house has in case there are any issues that occur. 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 She uses an Albuterol Inhaler PRN.TKRN History of stomach ulcers 02/07/2014 Overview: 02/07/2014.She was treated for a stomach ulcer when she was in high school. TKRN Nausea/vomiting in 02/07/2014 01/28/2016 Overview: 02/07/2014Patient is complaining of nausea in . She denies any vomiting. She wishes to try vitamin B6 100 mg daily. Advised patient to call/come in if she is unable to keep any food or fluids down in a 24-hour period. TKRN Group B streptococcal infect ion in child of prior , currently 02/07/201401/04 Overview: 02/07/2014Patient states that her previous baby was hospitalized for approximately 3 weeks on and off beginning at age 5 weeks for positive group B strep infection. Nata Small BSN RN Fundal height low for dates 07/12/2012 02/07/2014 Supervision of normal 02/24/2012 01/28/2016 Overview: XX GBS (group B streptococcus) UTI complicating 02/24/2012 02/07/2014 Overview: 04/22 - MARINE negative - KK Abdominal pain, left lower quadrant 01/10/2010 02/24/2012 Supervision of normal first 11/08/2009 02/24/2012 documented as of this encounter (statuses as of 09/01/2023) [facility] History of Past illness Narrative* Problem Noted Date Diagnosed Date Resolved Date Intact amniotic membranes du ring in third trimester 04/09/2022 04/09/2022 Overview: - Reporting LOF in the afternoon - Nitrazine negative - Ferning negative - No pooling on speculum Indication for care in labor or delivery 04/09/2022 04/11/2022 Overview: of girl Largest prior delivery [id number] Uterine contractions 04/08/2022 022 Overview: - Reactive NST and Cat I - Contractions q 4-7 mins - Cervix /-1 Of note, this is minimal change from 12 hours prior Offered pt observation Thoroughly reviewed labor precautions Sign out to night team No leakage of amniotic fluid into vagina 04/08/2022 04/09/2022 Overview: No pooling, no ferning, nitrazine neg Benign gestational thrombocy topenia in third trimester 02/07/2022 04/09/2022 Overview: 02/07/22 Plt 137. Admission plt UTI (urinary tract infection ) in , antepartum 11/19/2021 04/09/2022 Overview: 11/15/21-UTI ecoli. Treated with Macrobid. Urine MARINE next visit. Estefania Slater APRN.CNM Encounter for screening for diabetes mellitus 11/13/1904/09/2022 Anemia during in first trimester 10/16/2021 04/09/2022 Unplanned 08/26/2021 04/09/20 Overview: 11/13/2021 Her and her plan to keep baby. FOB is not involved. SW 08/26/2021 Patient admits that she has not told her that she is yet. She states that she and her have been having problems for some time and that she was unfaithful to him. The father of the baby is not involved. She states he is undocumented. She states that she wants to to adopt the baby out to her cousin at this time who is going through infertility. She states she wants this 'burden to turn into a beauty'. I have given her information on [facility]. Patient does state that her may have an alcohol issue. Denies any abuse in the past. She states he is not living with them at this present time so she is not concerned about her safety now. I have advised her about the services that every women's house has in case there are any issues that occur. 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 She uses an Albuterol Inhaler PRN.TKRN History of stomach ulcers 02/07/2014 Overview: 02/07/2014.She was treated for a stomach ulcer when she was in high school. TKRN Nausea/vomiting in 02/07/2014 01/28/2016 Overview: 02/07/2014Patient is complaining of nausea in . She denies any vomiting. She wishes to try vitamin B6 100 mg daily. Advised patient to call/come in if she is unable to keep any food or fluids down in a 24-hour period. TKRN Group B streptococcal infect ion in child of prior , currently 02/07/201401/04 Overview: 02/07/2014Patient states that her previous baby was hospitalized for approximately 3 weeks on and off beginning at age 5 weeks for positive group B strep infection. Nata Small BSN RN Fundal height low for dates 07/12/2012 02/07/2014 Supervision of normal 02/24/2012 01/28/2016 Overview: XX GBS (group B streptococcus) UTI complicating 02/24/2012 02/07/2014 Overview: 04/22 - MARINE negative - KK Abdominal pain, left lower quadrant 01/10/2010 02/24/2012 Supervision of normal first 11/08/2009 02/24/2012 documented as of this encounter (statuses as of 11/06/2023) [facility] History of Past illness Narrative* Problem Noted Date Diagnosed Date Resolved Date Intact amniotic membranes du ring in third trimester 04/09/2022 04/09/2022 Overview: - Reporting LOF in the afternoon - Nitrazine negative - Ferning negative - No pooling on speculum Indication for care in labor or delivery 04/09/2022 04/11/2022 Overview: of infant girl Largest prior delivery [id number] Uterine contractions 04/08/2022 022 Overview: - Reactive NST and Cat I - Contractions q 4-7 mins - Cervix /70/-1 Of note, this is minimal change from 12 hours prior Offered pt observation Thoroughly reviewed labor precautions Sign out to night team No leakage of amniotic fluid into vagina 04/08/2022 04/09/2022 Overview: No pooling, no ferning, nitrazine neg Benign gestational thrombocy topenia in third trimester 02/07/2022 04/09/2022 Overview: 02/07/22 Plt 137. Admission plt UTI (urinary tract infection ) in , antepartum 11/19/2021 04/09/2022 Overview: 11/15/21-UTI ecoli. Treated with Macrobid. Urine MARINE next visit. Estefania Slater APRN.CNM Encounter for screening for diabetes mellitus 11/13/1904/09/2022 Anemia during in first trimester 10/16/2021 04/09/2022 Unplanned 08/26/2021 04/09/20 Overview: 11/13/2021 Her and her plan to keep baby. FOB is not involved. SW 08/26/2021 Patient admits that she has not told her that she is yet. She states that she and her have been having problems for some time and that she was unfaithful to him. The father of the baby is not involved. She states he is undocumented. She states that she wants to to adopt the baby out to her cousin at this time who is going through infertility. She states she wants this 'burden to turn into a beauty'. I have given her information on [facility]. Patient does state that her may have an alcohol issue. Denies any abuse in the past. She states he is not living with them at this present time so she is not concerned about her safety now. I have advised her about the services that every women's house has in case there are any issues that occur. 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 She uses an Albuterol Inhaler PRN.TKRN History of stomach ulcers 02/07/2014 Overview: 02/07/2014.She was treated for a stomach ulcer when she was in high school. TKRN Nausea/vomiting in 02/07/2014 01/28/2016 Overview: 02/07/2014Patient is complaining of nausea in . She denies any vomiting. She wishes to try vitamin B6 100 mg daily. Advised patient to call/come in if she is unable to keep any food or fluids down in a 24-hour period. TKRN Group B streptococcal infect ion in child of prior , currently 02/07/201401/04 Overview: 02/07/2014Patient states that her previous baby was hospitalized for approximately 3 weeks on and off beginning at age 5 weeks for positive group B strep infection. Nata Small BSN RN Fundal height low for dates 07/12/2012 02/07/2014 Supervision of normal 02/24/2012 01/28/2016 Overview: XX GBS (group B streptococcus) UTI complicating 02/24/2012 02/07/2014 Overview: 04/22 - MARINE negative - KK Abdominal pain, left lower quadrant 01/10/2010 02/24/2012 Supervision of normal first 11/08/2009 02/24/2012 documented as of this encounter (statuses as of 12/17/2023) [facility] History of Past illness Narrative* Problem Noted Date Diagnosed Date Resolved Date Intact amniotic membranes du ring in third trimester 04/09/2022 04/09/2022 Overview: - Reporting LOF in the afternoon - Nitrazine negative - Ferning negative - No pooling on speculum Indication for care in labor or delivery 04/09/2022 04/11/2022 Overview: of girl Largest prior delivery [id number] Uterine contractions 04/08/2022 022 Overview: - Reactive NST and Cat I - Contractions q 4-7 mins - Cervix 4/70/-1 Of note, this is minimal change from 12 hours prior Offered pt observation Thoroughly reviewed labor precautions Sign out to night team No leakage of amniotic fluid into vagina 04/08/2022 04/09/2022 Overview: No pooling, no ferning, nitrazine neg Benign gestational thrombocy topenia in third trimester 02/07/2022 04/09/2022 Overview: 02/07/22 Plt 137. Admission plt UTI (urinary tract infection ) in , antepartum 11/19/2021 04/09/2022 Overview: 11/15/21-UTI ecoli. Treated with Macrobid. Urine MARINE next visit. Estefania Slater APRN.CNM Encounter for screening for diabetes mellitus 11/13/1904/09/2022 Anemia during in first trimester 10/16/2021 04/09/2022 Unplanned 08/26/2021 04/09/20 Overview: 11/13/2021 Her and her plan to keep baby. FOB is not involved. SW 08/26/2021 Patient admits that she has not told her that she is yet. She states that she and her have been having problems for some time and that she was unfaithful to him. The father of the baby is not involved. She states he is undocumented. She states that she wants to to adopt the baby out to her cousin at this time who is going through infertility. She states she wants this 'burden to turn into a beauty'. I have given her information on [facility]. Patient does state that her may have an alcohol issue. Denies any abuse in the past. She states he is not living with them at this present time so she is not concerned about her safety now. I have advised her about the services that every women's house has in case there are any issues that occur. 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 She uses an Albuterol Inhaler PRN.TKRN History of stomach ulcers 02/07/2014 Overview: 02/07/2014.She was treated for a stomach ulcer when she was in high school. TKRN Nausea/vomiting in 02/07/2014 01/28/2016 Overview: 02/07/2014Patient is complaining of nausea in . She denies any vomiting. She wishes to try vitamin B6 100 mg daily. Advised patient to call/come in if she is unable to keep any food or fluids down in a 24-hour period. TKRN Group B streptococcal infect ion in child of prior , currently 02/07/201401/04 Overview: 02/07/2014Patient states that her previous baby was hospitalized for approximately 3 weeks on and off beginning at age 5 weeks for positive group B strep infection. Nata MCBRIDEN RN Fundal height low for dates 07/12/2012 02/07/2014 Supervision of normal 02/24/2012 01/28/2016 Overview: XX GBS (group B streptococcus) UTI complicating 02/24/2012 02/07/2014 Overview: 04/22 - MARINE negative - KK Abdominal pain, left lower quadrant 01/10/2010 02/24/2012 Supervision of normal first 11/08/2009 02/24/2012 documented as of this encounter (statuses as of 2023) [facility] History of Past illness Narrative* Problem Noted Date Diagnosed Date Resolved Date Intact amniotic membranes du ring in third trimester 04/09/2022 04/09/2022 Overview: - Reporting LOF in the afternoon - Nitrazine negative - Ferning negative - No pooling on speculum Indication for care in labor or delivery 04/09/2022 04/11/2022 Overview: of girl Largest prior delivery [id number] Uterine contractions 04/08/2022 022 Overview: - Reactive NST and Cat I - Contractions q 4-7 mins - Cervix 4/70/-1 Of note, this is minimal change from 12 hours prior Offered pt observation Thoroughly reviewed labor precautions Sign out to night team No leakage of amniotic fluid into vagina 04/08/2022 04/09/2022 Overview: No pooling, no ferning, nitrazine neg Benign gestational thrombocy topenia in third trimester 02/07/2022 04/09/2022 Overview: 02/07/22 Plt 137. Admission plt UTI (urinary tract infection ) in , antepartum 11/19/2021 04/09/2022 Overview: 11/15/21-UTI ecoli. Treated with Macrobid. Urine MARINE next visit. Estefania Slater APRN.CNM Encounter for screening for diabetes mellitus 11/13/1904/09/2022 Anemia during in first trimester 10/16/2021 04/09/2022 Unplanned 08/26/2021 04/09/20 22 Overview: 11/13/2021 Her and her plan to keep baby. FOB is not involved. SW 08/26/2021 Patient admits that she has not told her that she is yet. She states that she and her have been having problems for some time and that she was unfaithful to him. The father of the baby is not involved. She states he is undocumented. She states that she wants to to adopt the baby out to her cousin at this time who is going through infertility. She states she wants this 'burden to turn into a beauty'. I have given her information on [facility]. Patient does state that her may have an alcohol issue. Denies any abuse in the past. She states he is not living with them at this present time so she is not concerned about her safety now. I have advised her about the services that every women's house has in case there are any issues that occur. 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 She uses an Albuterol Inhaler PRN.TKRN History of stomach ulcers 02/07/2014 Overview: 02/07/2014.She was treated for a stomach ulcer when she was in high school. TKRN Nausea/vomiting in 02/07/2014 01/28/2016 Overview: 02/07/2014Patient is complaining of nausea in . She denies any vomiting. She wishes to try vitamin B6 100 mg daily. Advised patient to call/come in if she is unable to keep any food or fluids down in a 24-hour period. TKRN Group B streptococcal infect ion in child of prior , currently 02/07/201401/04 Overview: 02/07/2014Patient states that her previous baby was hospitalized for approximately 3 weeks on and off beginning at age 5 weeks for positive group B strep infection. Nata Small BSN RN Fundal height low for dates 07/12/2012 02/07/2014 Supervision of normal 02/24/2012 01/28/2016 Overview: XX GBS (group B streptococcus) UTI complicating 02/24/2012 02/07/2014 Overview: 04/22 - MARINE negative - KK Abdominal pain, left lower quadrant 01/10/2010 02/24/2012 Supervision of normal first 11/08/2009 02/24/2012 documented as of this encounter (statuses as of 12/27/2023) [facility] History of Past illness Narrative* Problem Noted Date Diagnosed Date Resolved Date Intact amniotic membranes du ring in third trimester 04/09/2022 04/09/2022 Overview: - Reporting LOF in the afternoon - Nitrazine negative - Ferning negative - No pooling on speculum Indication for care in labor or delivery 04/09/2022 04/11/2022 Overview: of infant girl Largest prior delivery [id number] Uterine contractions 04/08/2022 022 Overview: - Reactive NST and Cat I - Contractions q 4-7 mins - Cervix 4/70/-1 Of note, this is minimal change from 12 hours prior Offered pt observation Thoroughly reviewed labor precautions Sign out to night team No leakage of amniotic fluid into vagina 04/08/2022 04/09/2022 Overview: No pooling, no ferning, nitrazine neg Benign gestational thrombocy topenia in third trimester 02/07/2022 04/09/2022 Overview: 02/07/22 Plt 137. Admission plt UTI (urinary tract infection ) in , antepartum 11/19/2021 04/09/2022 Overview: 11/15/21-UTI ecoli. Treated with Macrobid. Urine MARINE next visit. Estefania Slater APRN.CNM Encounter for screening for diabetes mellitus 11/13/1904/09/2022 Anemia during in first trimester 10/16/2021 04/09/2022 Unplanned 08/26/2021 04/09/20 Overview: 11/13/2021 Her and her plan to keep baby. FOB is not involved. SW 08/26/2021 Patient admits that she has not told her that she is yet. She states that she and her have been having problems for some time and that she was unfaithful to him. The father of the baby is not involved. She states he is undocumented. She states that she wants to to adopt the baby out to her cousin at this time who is going through infertility. She states she wants this 'burden to turn into a beauty'. I have given her information on [facility]. Patient does state that her may have an alcohol issue. Denies any abuse in the past. She states he is not living with them at this present time so she is not concerned about her safety now. I have advised her about the services that every women's house has in case there are any issues that occur. 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 She uses an Albuterol Inhaler PRN.TKRN History of stomach ulcers 02/07/2014 Overview: 02/07/2014.She was treated for a stomach ulcer when she was in high school. TKRN Nausea/vomiting in 02/07/2014 01/28/2016 Overview: 02/07/2014Patient is complaining of nausea in . She denies any vomiting. She wishes to try vitamin B6 100 mg daily. Advised patient to call/come in if she is unable to keep any food or fluids down in a 24-hour period. TKRN Group B streptococcal infect ion in child of prior , currently 02/07/201401/04 Overview: 02/07/2014Patient states that her previous baby was hospitalized for approximately 3 weeks on and off beginning at age 5 weeks for positive group B strep infection. Nata MCBRIDEN RN Fundal height low for dates 07/12/2012 02/07/2014 Supervision of normal 02/24/2012 01/28/2016 Overview: XX GBS (group B streptococcus) UTI complicating 02/24/2012 02/07/2014 Overview: 04/22 - MARINE negative - KK Abdominal pain, left lower quadrant 01/10/2010 02/24/2012 Supervision of normal first 11/08/2009 02/24/2012 documented as of this encounter (statuses as of 12/29/2023) [facility] History of Past illness Narrative* Problem Noted Date Diagnosed Date Resolved Date Intact amniotic membranes du ring in third trimester 04/09/2022 04/09/2022 Overview: - Reporting LOF in the afternoon - Nitrazine negative - Ferning negative - No pooling on speculum Indication for care in labor or delivery 04/09/2022 04/11/2022 Overview: of girl Largest prior delivery [id number] Uterine contractions 04/08/2022 022 Overview: - Reactive NST and Cat I - Contractions q 4-7 mins - Cervix 4/70/-1 Of note, this is minimal change from 12 hours prior Offered pt observation Thoroughly reviewed labor precautions Sign out to night team No leakage of amniotic fluid into vagina 04/08/2022 04/09/2022 Overview: No pooling, no ferning, nitrazine neg Benign gestational thrombocy topenia in third trimester 02/07/2022 04/09/2022 Overview: 02/07/22 Plt 137. Admission plt UTI (urinary tract infection ) in , antepartum 11/19/2021 04/09/2022 Overview: 11/15/21-UTI ecoli. Treated with Macrobid. Urine MARINE next visit. Estefania Slater APRN.CNM Encounter for screening for diabetes mellitus 11/13/1904/09/2022 Anemia during in first trimester 10/16/2021 04/09/2022 Unplanned 08/26/2021 04/09/20 Overview: 11/13/2021 Her and her plan to keep baby. FOB is not involved. SW 08/26/2021 Patient admits that she has not told her that she is yet. She states that she and her have been having problems for some time and that she was unfaithful to him. The father of the baby is not involved. She states he is undocumented. She states that she wants to to adopt the baby out to her cousin at this time who is going through infertility. She states she wants this 'burden to turn into a beauty'. I have given her information on [facility]. Patient does state that her may have an alcohol issue. Denies any abuse in the past. She states he is not living with them at this present time so she is not concerned about her safety now. I have advised her about the services that every women's house has in case there are any issues that occur. 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 She uses an Albuterol Inhaler PRN.TKRN History of stomach ulcers 02/07/2014 Overview: 02/07/2014.She was treated for a stomach ulcer when she was in high school. TKRN Nausea/vomiting in 02/07/2014 01/28/2016 Overview: 02/07/2014Patient is complaining of nausea in . She denies any vomiting. She wishes to try vitamin B6 100 mg daily. Advised patient to call/come in if she is unable to keep any food or fluids down in a 24-hour period. TKRN Group B streptococcal infect ion in child of prior , currently 02/07/201401/04 Overview: 02/07/2014Patient states that her previous baby was hospitalized for approximately 3 weeks on and off beginning at age 5 weeks for positive group B strep infection. Nata Small BSN RN Fundal height low for dates 07/12/2012 02/07/2014 Supervision of normal 02/24/2012 01/28/2016 Overview: XX GBS (group B streptococcus) UTI complicating 02/24/2012 02/07/2014 Overview: 04/22 - MARINE negative - KK Abdominal pain, left lower quadrant 01/10/2010 02/24/2012 Supervision of normal first 11/08/2009 02/24/2012 documented as of this encounter (statuses as of 12/29/2023) [facility] History of Past illness Narrative* Problem Noted Date Diagnosed Date Resolved Date Intact amniotic membranes du ring in third trimester 04/09/2022 04/09/2022 Overview: - Reporting LOF in the afternoon - Nitrazine negative - Ferning negative - No pooling on speculum Indication for care in labor or delivery 04/09/2022 04/11/2022 Overview: of girl Largest prior delivery [id number] Uterine contractions 04/08/2022 022 Overview: - Reactive NST and Cat I - Contractions q 4-7 mins - Cervix 4/70/-1 Of note, this is minimal change from 12 hours prior Offered pt observation Thoroughly reviewed labor precautions Sign out to night team No leakage of amniotic fluid into vagina 04/08/2022 04/09/2022 Overview: No pooling, no ferning, nitrazine neg Benign gestational thrombocy topenia in third trimester 02/07/2022 04/09/2022 Overview: 02/07/22 Plt 137. Admission plt UTI (urinary tract infection ) in , antepartum 11/19/2021 04/09/2022 Overview: 11/15/21-UTI ecoli. Treated with Macrobid. Urine MARINE next visit. Estefania Slater APRN.CNM Encounter for screening for diabetes mellitus 11/13/1904/09/2022 Anemia during in first trimester 10/16/2021 04/09/2022 Unplanned 08/26/2021 04/09/20 Overview: 11/13/2021 Her and her plan to keep baby. FOB is not involved. SW 08/26/2021 Patient admits that she has not told her that she is yet. She states that she and her have been having problems for some time and that she was unfaithful to him. The father of the baby is not involved. She states he is undocumented. She states that she wants to to adopt the baby out to her cousin at this time who is going through infertility. She states she wants this 'burden to turn into a beauty'. I have given her information on [facility]. Patient does state that her may have an alcohol issue. Denies any abuse in the past. She states he is not living with them at this present time so she is not concerned about her safety now. I have advised her about the services that every women's house has in case there are any issues that occur. 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 She uses an Albuterol Inhaler PRN.TKRN History of stomach ulcers 02/07/2014 Overview: 02/07/2014.She was treated for a stomach ulcer when she was in high school. TKRN Nausea/vomiting in 02/07/2014 01/28/2016 Overview: 02/07/2014Patient is complaining of nausea in . She denies any vomiting. She wishes to try vitamin B6 100 mg daily. Advised patient to call/come in if she is unable to keep any food or fluids down in a 24-hour period. TKRN Group B streptococcal infect ion in child of prior , currently 02/07/201401/04 Overview: 02/07/2014Patient states that her previous baby was hospitalized for approximately 3 weeks on and off beginning at age 5 weeks for positive group B strep infection. Nata MCBRIDEN RN Fundal height low for dates 07/12/2012 02/07/2014 Supervision of normal 02/24/2012 01/28/2016 Overview: XX GBS (group B streptococcus) UTI complicating 02/24/2012 02/07/2014 Overview: 04/22 - MARINE negative - KK Abdominal pain, left lower quadrant 01/10/2010 02/24/2012 Supervision of normal first 11/08/2009 02/24/2012 documented as of this encounter (statuses as of 01/05/2024) [facility] History of Past illness Narrative* Problem Noted Date Diagnosed Date Resolved Date Intact amniotic membranes du ring in third trimester 04/09/2022 04/09/2022 Overview: - Reporting LOF in the afternoon - Nitrazine negative - Ferning negative - No pooling on speculum Indication for care in labor or delivery 04/09/2022 04/11/2022 Overview: of girl Largest prior delivery [id number] Uterine contractions 04/08/2022 022 Overview: - Reactive NST and Cat I - Contractions q 4-7 mins - Cervix 4/70/-1 Of note, this is minimal change from 12 hours prior Offered pt observation Thoroughly reviewed labor precautions Sign out to night team No leakage of amniotic fluid into vagina 04/08/2022 04/09/2022 Overview: No pooling, no ferning, nitrazine neg Benign gestational thrombocy topenia in third trimester 02/07/2022 04/09/2022 Overview: 02/07/22 Plt 137. Admission plt UTI (urinary tract infection ) in , antepartum 11/19/2021 04/09/2022 Overview: 11/15/21-UTI ecoli. Treated with Macrobid. Urine MARINE next visit. Estefania Slater APRN.LIANNEM Encounter for screening for diabetes mellitus 11/13/1904/09/2022 Anemia during in first trimester 10/16/2021 04/09/2022 Unplanned 08/26/2021 04/09/20 Overview: 11/13/2021 Her and her plan to keep baby. FOB is not involved. SW 08/26/2021 Patient admits that she has not told her that she is yet. She states that she and her have been having problems for some time and that she was unfaithful to him. The father of the baby is not involved. She states he is undocumented. She states that she wants to to adopt the baby out to her cousin at this time who is going through infertility. She states she wants this 'burden to turn into a beauty'. I have given her information on [facility]. Patient does state that her may have an alcohol issue. Denies any abuse in the past. She states he is not living with them at this present time so she is not concerned about her safety now. I have advised her about the services that every women's house has in case there are any issues that occur. 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 She uses an Albuterol Inhaler PRN.TKRN History of stomach ulcers 02/07/2014 Overview: 02/07/2014.She was treated for a stomach ulcer when she was in high school. TKRN Nausea/vomiting in 02/07/2014 01/28/2016 Overview: 02/07/2014Patient is complaining of nausea in . She denies any vomiting. She wishes to try vitamin B6 100 mg daily. Advised patient to call/come in if she is unable to keep any food or fluids down in a 24-hour period. TKRN Group B streptococcal infect ion in child of prior , currently 02/07/201401/04 Overview: 02/07/2014Patient states that her previous baby was hospitalized for approximately 3 weeks on and off beginning at age 5 weeks for positive group B strep infection. Nata MCBRIDEN RN Fundal height low for dates 07/12/2012 02/07/2014 Supervision of normal 02/24/2012 01/28/2016 Overview: XX GBS (group B streptococcus) UTI complicating 02/24/2012 02/07/2014 Overview: 04/22 - MARINE negative - KK Abdominal pain, left lower quadrant 01/10/2010 02/24/2012 Supervision of normal first 11/08/2009 02/24/2012 documented as of this encounter (statuses as of 01/08/2024) [facility] History of Past illness Narrative* Problem Noted Date Diagnosed Date Resolved Date Intact amniotic membranes du ring in third trimester 04/09/2022 04/09/2022 Overview: - Reporting LOF in the afternoon - Nitrazine negative - Ferning negative - No pooling on speculum Indication for care in labor or delivery 04/09/2022 04/11/2022 Overview: of infant girl Largest prior delivery [id number] Uterine contractions 04/08/2022 022 Overview: - Reactive NST and Cat I - Contractions q 4-7 mins - Cervix 4/70/-1 Of note, this is minimal change from 12 hours prior Offered pt observation Thoroughly reviewed labor precautions Sign out to night team No leakage of amniotic fluid into vagina 04/08/2022 04/09/2022 Overview: No pooling, no ferning, nitrazine neg Benign gestational thrombocy topenia in third trimester 02/07/2022 04/09/2022 Overview: 02/07/22 Plt 137. Admission plt UTI (urinary tract infection ) in , antepartum 11/19/2021 04/09/2022 Overview: 11/15/21-UTI ecoli. Treated with Macrobid. Urine MARINE next visit. Estefania Slater APRN.CNM Encounter for screening for diabetes mellitus 11/13/1904/09/2022 Anemia during in first trimester 10/16/2021 04/09/2022 Unplanned 08/26/2021 04/09/20 Overview: 11/13/2021 Her and her plan to keep baby. FOB is not involved. SW 08/26/2021 Patient admits that she has not told her that she is yet. She states that she and her have been having problems for some time and that she was unfaithful to him. The father of the baby is not involved. She states he is undocumented. She states that she wants to to adopt the baby out to her cousin at this time who is going through infertility. She states she wants this 'burden to turn into a beauty'. I have given her information on [facility]. Patient does state that her may have an alcohol issue. Denies any abuse in the past. She states he is not living with them at this present time so she is not concerned about her safety now. I have advised her about the services that every women's house has in case there are any issues that occur. 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 She uses an Albuterol Inhaler PRN.TKRN History of stomach ulcers 02/07/2014 Overview: 02/07/2014.She was treated for a stomach ulcer when she was in high school. TKRN Nausea/vomiting in 02/07/2014 01/28/2016 Overview: 02/07/2014Patient is complaining of nausea in . She denies any vomiting. She wishes to try vitamin B6 100 mg daily. Advised patient to call/come in if she is unable to keep any food or fluids down in a 24-hour period. TKRN Group B streptococcal infect ion in child of prior , currently 02/07/201401/04 Overview: 02/07/2014Patient states that her previous baby was hospitalized for approximately 3 weeks on and off beginning at age 5 weeks for positive group B strep infection. Nata Small BSN RN Fundal height low for dates 07/12/2012 02/07/2014 Supervision of normal 02/24/2012 01/28/2016 Overview: XX GBS (group B streptococcus) UTI complicating 02/24/2012 02/07/2014 Overview: 04/22 - MARINE negative - KK Abdominal pain, left lower quadrant 01/10/2010 02/24/2012 Supervision of normal first 11/08/2009 02/24/2012 documented as of this encounter (statuses as of 01/11/2024) [facility] Miscellaneous Notes* Quick Notes - Allie Rome MD - 04/04/2022 9:14 AM EDT SW- Pt doing well. No regular ctx, vb, lof. Good FM. She is having some irregular ctx's. She is starting to feel anxious regarding delivery, and would liked to be delivered NAHUM. She is most anxious about seeing baby and this triggering memories from the past. Concerned about appearance of baby. Working with her therapist weekly. PE: Gen- NAD, well appearing, comfortable Abd- Soft, gravid, NT Ext- No edema See flowsheet A/p 37 wk gestation - H/o PE: Cont Lovenox. Discussed plan would be to hold night before IOL. Discussed possibility of not being able to receive epidural for pain control if she comes in in spontaneous labor, which she is aware of - Anemia: Improved after IV iron - Hypothyroid: She just started prescribed lower dose of Synthroid. Will plan to recheck - GBS: Discussed will need Vanc - Gestational thrombocytopenia: Plt's stable. Recheck on admission for induction - Discussed delivery plan and IOL ~39 weeks. She is considering an induction on 04/18/22 if that is possible with scheduling, as she is reasonably anxious and would like to delivery NAHUM. She understands this may not be possible, and that I will not be available for delivery at that time. She is also considering induction on 04/21/22 if possible - Cont working with therapist weekly - RTO 1 wk to schedule IOL Allie Rome DO documented in this encounterOhio [facility] System[facility]22 Instructions* Patient Instructions* Matt Tomlinson MA - 04/04/2022 9:08 AM EDT SEQUENTIAL SCREENINGS The [facility] offers sequential screenings for women who are interested in screenings for chromosomal abnormalities and certain defects during a . The sequential screen combinesultrasound and blood tests to determine the risk of chromosomal abnormalities, including Down's Syndrome (Trisomy 21) and Trisomy 18, as well as open neural tube defects including spina bifida. Ultrasound examination is performed between 11 weeks and 13 weeks gestational age. Blood tests are drawn after the ultrasound and again later in the between 15 and 21 weeks gestational age. Please let your physician know if you are interested in this testing. It will require an appointment withour hvac operations technician. This is not an ultrasound performed by a physician in our office during a routine visit. SIGNS AND SYMPTOMS OF LABOR 1. Contractions every 10 minutes or more often 2. Clear, pink, or brownish fluid (water) leaking from vagina 3. Feeling that baby is pushing down, pressure 4. Low, dull backache 5. Cramps that feel like a period 6. Cramps with or without diarrhea If you notice any of the above symptoms, contact our office at [phone] and ask to speak with anurse. After hours, you can call doctors registry at [phone] OR call [facility] at [phone] ask to have the doctor personal injury litigation paralegal paged. If you consider this an emergency, dial 7-6-8 or go to your nearest emergency department. NEED HELP? Are you dealing with a violent or abusive relationship? Are you a victim of rape or sexual assult? Call [facility] ([facility] 24 hour Crisis Hotline: 834.174.8848 or 472-420-1159. MANUAL Your Guide to a Healthy manual is now on-line. Visit [email or web address] to download your free copy documented in this encounterOhio State Health System06-28-2022 Miscellaneous Notes* Quick Notes - Emily Lay APRN.CNM - 04/01/2022 2:16 PM EDT Seen for NST for decreased movement. Patient has felt movement since arrival. Denies any contractions. See progress note. Emily Lay APRN.CNM documented in this encounterOhio State Health System06-28-2022 History of Present illness Narrative* Emily Lay APRN.CNM - 04/01/2022 1:52 PM EDT NST SUMMARY PROVIDER ASSESSMENT AND INTERPRETATION Matt Baum is a 31 year old female, , who is at 36w4d with an KRISTIN of 04/25/2022, by Last Menstrual Period dating method. Indications for NST: Decreased Movement Baseline: 125 Variability: Moderate Accelerations: Present 15 X 15 Decelerations: None Contractions: TOCO: None Interpretation: Category I and Reactive Reviewed kick counts/ Labor precautions SIGNATURE: Emily Lay APRN.CNM documented in this encounterOhio State Health System06-28-2022 Instructions* Patient Instructions* Matt Tomlinson MA - 04/01/2022 1:10 PM EDT SEQUENTIAL SCREENINGS [facility] offers sequential screenings for women who are interested in screenings for chromosomal abnormalities and certain defects during a . The sequential screen combinesultrasound and blood tests to determine the risk of chromosomal abnormalities, including Down's Syndrome (Trisomy 21) and Trisomy 18, as well as open neural tube defects including spina bifida. Ultrasound examination is performed between 11 weeks and 13 weeks gestational age. Blood tests are drawn after the ultrasound and again later in the between 15 and 21 weeks gestational age. Please let your physician know if you are interested in this testing. It will require an appointment withour hvac operations technician. This is not an ultrasound performed by a physician in our office during a routine visit. SIGNS AND SYMPTOMS OF LABOR 1. Contractions every 10 minutes or more often 2. Clear, pink, or brownish fluid (water) leaking from vagina 3. Feeling that baby is pushing down, pressure 4. Low, dull backache 5. Cramps that feel like a period 6. Cramps with or without diarrhea If you notice any of the above symptoms, contact our office at [phone] and ask to speak with anurse. After hours, you can call doctors registry at [phone] OR call [facility] at [phone] ask to have the doctor personal injury litigation paralegal paged. If you consider this an emergency, dial [phone]--9 or go to your nearest emergency department. NEED HELP? Are you dealing with a violent or abusive relationship? Are you a victim of rape or sexual assult? Call [facility] ([place]) 24 hour Crisis Hotline: 613.956.2796 or 797-189-8409. MANUAL Your Guide to a Healthy manual is now on-line. Visit [email or web address] to download your free copy documented in this encounterOhio State Health System06-23-2022 Miscellaneous Notes* Quick Notes - Jonny Terrazas MD - 03/27/2022 2:30 PM EDT KJ - VB No. LOF No. CTXS Yes - patient seen for irregular ctxs that she was having overnight but now are more spaced out. Movement: present. Other c/o: patient is feeling stressed out. Medication list reviewed. Physical Exam See Flow Sheet Gen: no accute distress, well appearing Abd: soft, nontender, gravid A/P 35w6d Estimated Date of Delivery: 04/25/22 No evidence of PTL GBS positive in urine but checking culture for sensitives d/t pcn allergy PE - on lovenox. Advised her to call use before holding lovenox in the future. Will message as to recommendation for IV heparin before delivery. Gestational thrombocytopenia Anemia - s/p IV iron Hypothyroid - synthroid adjusted earlier this week PTL precautions reviewed, Kick counts reviewed. Jonny Terrazas MD documented in this encounterOhio State Health System06-23-2022 Instructions* Patient Instructions* Linda Ruiz Ma - 03/27/2022 2:15 PM EDT SEQUENTIAL SCREENINGS The [facility] offers sequential screenings for women who are interested in screenings for chromosomal abnormalities and certain defects during a . The sequential screen combinesultrasound and blood tests to determine the risk of chromosomal abnormalities, including Down's Syndrome (Trisomy 21) and Trisomy 18, as well as open neural tube defects including spina bifida. Ultrasound examination is performed between 11 weeks and 13 weeks gestational age. Blood tests are drawn after the ultrasound and again later in the between 15 and 21 weeks gestational age. Please let your physician know if you are interested in this testing. It will require an appointment withour hvac operations technician. This is not an ultrasound performed by a physician in our office during a routine visit. SIGNS AND SYMPTOMS OF LABOR 1. Contractions every 10 minutes or more often 2. Clear, pink, or brownish fluid (water) leaking from vagina 3. Feeling that baby is pushing down, pressure 4. Low, dull backache 5. Cramps that feel like a period 6. Cramps with or without diarrhea If you notice any of the above symptoms, contact our office at [phone] and ask to speak with anurse. After hours, you can call doctors registry at [phone] OR call [facility] at [phone] ask to have the doctor personal injury litigation paralegal paged. If you consider this an emergency, dial 9-2-3 or go to your nearest emergency department. NEED HELP? Are you dealing with a violent or abusive relationship? Are you a victim of rape or sexual assult? Call [facility] ([facility] 24 hour Crisis Hotline: 794.670.9324 or 068-615-4376. MANUAL Your Guide to a Healthy manual is now on-line. Visit [email or web address] to download your free copy documented in this encounterOhio State Health System06-22-2022 Miscellaneous Notes* Telephone Encounter - Allie Rome MD - 03/26/2022 8:08 AM EDT See result note Lower dose of Synthroid sent documented in this encounterOhio State Health System06-20-2022 History of Present illness Narrative* Maria M Quarles, DO - 03/24/2022 8:53 AM EDT Diagnosis: 1) Unprovoked PE. HPI: The patient is a 30-year-old female who had an unremarkable past medical history. 05/09/2019 was working outside when noticed extreme fatigue. Was prone to low K, so thought it might be that. When went to bed that evening had 'weird' sensation in left leg--burning. Also felt uneasy in the abdomen like was going to have diarrhea. Went to BR but no need for BM, but was very nauseated suddenly. Had visual dimming and burning sensation between shoulder blades. Was taken to ED morning of 05/10. CT of the chest on 05/10/2019 demonstrated focal pulmonary embolism in a subsegmental branchin the right upper lobe. It was nonocclusive. A venous duplex ultrasound on 05/10 demonstrated no evidence of left lower extremity DVT. There was aBaker's cyst appreciated in the left popliteal fossa. Patient was discharged on Lovenox with instructions to transition to Coumadin. Presented back to the ED the next day with complaint of headache. CT of the brain showed normal unenhanced CT of the brain. Patient was given Reglan and Benadryl with improvement of the headache. She was discharged afterimprovement. Patient was seen again in the ER on 05/13 for complaints of nausea and not feeling well. No specific diagnosis. She was noted that she had a vasovagal episode after injecting herself Lovenox at morning. Was still on initial course of Lovenox when fist seen here. Coumadin dosing from 3 mg to 6 mg to 9 mg daily. INR 1.3. Coumadin had been making her nauseated. No family h/o VTE. Maternal GM had strokes. No use of OCPs. Was in the ED on 06/13/2019 with complaints of right lower extremity pain. Ultrasound was negative for DVT. She had remained on Eliquis. Was back in the ED on 08/22/2019 with complaints of shortness of breath. Workup included vitals, lab work consideration of CT but that was not done due to the fact that she was more comfortable in the ER and her vitals were normal. Was in the ED at [place] for complaint left arm tingling and heaviness. She presented because of her history of hyperkalemia in symptoms that had manifested similarly previously. Potassium was 4.1 mmol/L. Presents for ongoing hematologic management. Interim history: Feels much better after receiving parenteral iron. Better energy. Appetite normal. No complicationswith . Tolerating Lovenox injections very well with minimal bruising. No other bleeding issues. No leg swelling. No leg pain cramping or erythema. PMH, medications and allergies personally reviewed by me today. Any changes documented in appropriate section. ROS: Constitutional: Denies episodes of fever and night sweats. Not significantly fatigued. Normal appetite. Neuro: Denies MAR, vertigo, dizziness and imbalance. HEENT: No recent change in voice, vision or hearing. Resp: Denies cough, wheeze and hemoptysis. CVS: Denies exertional chest pain, PND, orthopnea and LE edema. GI: Denies dysgeusia. Denies symptoms of stomatitis. Denies dysphagia and odynophagia. Denies reflux, n/v, change in bowel habits and abdominal pain. : Denies dysuria or gross hematuria. No symptoms of bladder outlet obstruction. Endo: Denies hot flashes. Denies polyuria and polydipsia. Denies heat and cold intolerance. Musculoskeletal: Denies bone, back, joint and muscular pain. Derm: Denies rash. Denies jaundice and diffuse pruritis. Heme: See above. Psych: Normal mood. PHYSICAL EXAM: Vitals: Blood pressure 100/58, pulse 63, temperature 36.5 C (97.7 F), weight 63.3 kg (139 lb 8 oz),last menstrual period 07/19/2021, SpO2 100 %. Well-appearing and in no acute distress. EYES: Sclerae are anicteric bilaterally. NECK: Supple. LYMPHATIC: There is no palpable cervical or supraclavicular adenopathy. RESPIRATORY: Inspiratory breath sounds are of normal intensity in all francis. No rales, wheezes or rhonchi. Expiratory phase is normal. CARDIOVASCULAR: Rhythm is regular. ABDOMEN: The abdomen is nondistended. No organomegaly. No tenderness. Extremities: No swelling or edema. SKIN: No jaundice or rash. No bruising currently. NEUROLOGIC: direct response consultant II-XII are grossly intact. No focal motor weakness. MUSCULOSKELETAL: No muscle wasting. LABS: Component Latest Ref Rng & Units 03/04/2022 WBC 3.70 - 11.00 k/uL 5.07 RBC 3.90 - 5.20 m/uL 4.12 Hemoglobin 11.5 - 15.5 g/dL 10.7 (L) Hematocrit 36.0 - 46.0 % 35.1 (L) MCV 80.0 - 100.0 fL 85.2 MCH 26.0 - 34.0 pg 26.0 MCHC 30.5 - 36.0 g/dL 30.5 RDW-CV 11.5 - 15.0 % 19.0 (H) Platelet Count 150 - 400 k/uL 123 (L) MPV 9.0 - 12.7 fL 11.8 Neut% % 63.8 Abs Neut (ANC) 1.45 - 7.50 k/uL 3.24 Lymph% % 24.3 Abs Lymph 1.00 - 4.00 k/uL 1.23 [place]% % 9.3 Abs [place] <0.87 k/uL 0.47 Eosin% % 1.2 Abs Eosin <0.46 k/uL 0.06 Baso% % 0.4 Abs Baso <0.11 k/uL <0.03 Immature Gran % % 1.0 IMMATURE GRANS (ABS) <0.10 k/uL 0.05 NRBC /100 WBC 0.0 Absolute nRBC <0.01 k/uL <0.01 DTYPE Auto Iron 41 - 186 ug/dL 93 TIBC 232 - 386 ug/dL 448 (H) Transferrin Saturation 15 - 57 % 21 Ferritin 14.7 - 205.1 ng/mL 243.0 (H) ASSESSMENT/PLAN: (O99.019, D50.9) Iron deficiency anemia during (primary encounter diagnosis) (O99.013) Anemia during in third trimester Assessment: -Stools for occult blood negative. -Completed 9 doses of iron sucrose to date. -Feeling better. -Since stools were Hemoccult negative, will consider endoscopy following delivery and sometime intopostpartum Plan: -Complete iron sucrose today. -Repeat CBC and iron studies with office visit in 3 months. (I26.99) PE (pulmonary thromboembolism) (HCC) Assessment: -Unprovoked PE. -Difficult getting to therapeutic INR. Rotated to Eliquis. -Now on Lovenox during . Plan: -Continue Lovenox 60 mg/kg every 12 hours. -She will have to be admitted prior to delivery for conversion to IV unfractionated heparin. She was discussed plan with her building trades teacher. -She will resume Lovenox when her monitor and storage bin tender feels appropriate. Portions of this documentation were copied and pasted from previous office visit notes in order to provide a cohesive continuity of the history. The note has been reviewed and edited and updated as necessary. Maria M Quarles DO documented in this encounterOhio State Health System06-15-2022 Miscellaneous Notes* Quick Notes - Allie Rome MD - 03/19/2022 4:42 PM EDT SW- Pt doing well. Some irregular ctx's and discomfort. No vb, lof. Good FM PE: Gen- NAD, well appearing Abd- Soft, gravid, NT Ext- No edema See flowsheet A/p 34 wk gestation - TSH ordered to be completed with scheduled lab visit for CBC after completing IV iron infusions - Pt reports allergy to amoxacillin. +GBS bacteruria. Will need GBS cx and sensitivities next visit - Discussed PTL precautions, reasons to call or come in, reasons to hold Lovenox - RTO 1 wk Allie Rome DO documented in this encounterOhio State Health System06-15-2022 Instructions* Patient Instructions* Matt Tomlinson MA - 03/19/2022 4:21 PM EDT SEQUENTIAL SCREENINGS The [facility] offers sequential screenings for women who are interested in screenings for chromosomal abnormalities and certain defects during a . The sequential screen combinesultrasound and blood tests to determine the risk of chromosomal abnormalities, including Down's Syndrome (Trisomy 21) and Trisomy 18, as well as open neural tube defects including spina bifida. Ultrasound examination is performed between 11 weeks and 13 weeks gestational age. Blood tests are drawn after the ultrasound and again later in the between 15 and 21 weeks gestational age. Please let your physician know if you are interested in this testing. It will require an appointment withour hvac operations technician. This is not an ultrasound performed by a physician in our office during a routine visit. SIGNS AND SYMPTOMS OF LABOR 1. Contractions every 10 minutes or more often 2. Clear, pink, or brownish fluid (water) leaking from vagina 3. Feeling that baby is pushing down, pressure 4. Low, dull backache 5. Cramps that feel like a period 6. Cramps with or without diarrhea If you notice any of the above symptoms, contact our office at [phone] and ask to speak with anurse. After hours, you can call doctors registry at [phone] OR call [facility] at [phone] ask to have the doctor personal injury litigation paralegal paged. If you consider this an emergency, dial 5-6-5 or go to your nearest emergency department. NEED HELP? Are you dealing with a violent or abusive relationship? Are you a victim of rape or sexual assult? Call [facility] [place] ([place]) 24 hour Crisis Hotline: 270.817.7303 or 855-421-4816. MANUAL Your Guide to a Healthy manual is now on-line. Visit [email or web address] to download your free copy documented in this encounterOhio State Health System06-15-2022 History of Present illness Narrative* VINNY King - 03/19/2022 4:18 PM EDT SOCIAL WORK FOLLOW UP NOTE: [facility] Date of service: March 19, 2022 Matt Baum is being seen for a follow up social work visit. Today's visit includes: patient TOPICS ADDRESSED: Finances; SW met with patient since medication was delivered. No other needs identified. PLAN: Continue follow up as needed F/U APPOINTMENT: PRN Assigned SW listed in Care Team tab: Yes VINNY King documented in this encounterOhio State Health System06-13-2022 Miscellaneous Notes* Telephone Encounter - Allie Rome MD - 03/17/2022 10:16 AM EDT filed * Telephone Encounter - Suzan Nazario RN - 03/17/2022 9:15 AM EDT Refill request received from pharmacy. Patient 34w3d, next appointment is on 03/19. Suzan Nazario RN documented in this encounterOhio State Health System06-08-2022 Miscellaneous Notes* Telephone Encounter - VINNY King - 03/12/2022 8:26 AM EDT SOCIAL WORK FOLLOW UP NOTE: [facility] Date of service: March 12, 2022 Matt Baum is being seen for a follow up social work visit. Today's visit includes: patient not present TOPICS ADDRESSED: Finances; SW completed reorder form for Lovenox and faxed to [employer]. No other needs identified. PLAN: Continue follow up as needed F/U APPOINTMENT: PRN Assigned SW listed in Care Team tab: Yes VINNY King documented in this encounterOhio State Health System06-07-2022 Miscellaneous Notes* Telephone Encounter - Suzan Nazario RN - 03/11/2022 4:16 PM EDT Patient notified and voiced understanding of below information and instructions. Suzan Nazario RN * Telephone Encounter - Renetta Ponce MD - 03/11/2022 4:11 PM EDT No labs. Have her stay hydrated. Change positions slowly and eat small frequent meals. Call if worsening symptoms * Telephone Encounter - Beckie Price RN - 03/11/2022 3:24 PM EDT Pt in today for Iron tx. Stated she had an episode today around 1pm where she felt dizziness, increased sweating, and felt her sugar was low. Currently, pt is not experiencing these symptoms but just feels off. Vitals are as follows: BP 109/60 P 80 R 16 T 97.8 NOV 03/19/22. Would you like any labs drawn today? Thank you Beckie Price RN documented in this encounterOhio State Health System06-07-2022 History of Present illness Narrative* VINNY King - 03/11/2022 3:57 PM EDT SOCIAL WORK FOLLOW UP NOTE: [facility] Date of service: March 11, 2022 Matt Baum is being seen for a follow up social work visit. Today's visit includes: patient and [employer] TOPICS ADDRESSED: Finances; SW met with patient to discuss need for Lovenox refill. SW called [employer] to request reorder form. [facility] No other needs identified. PLAN: Assist with financial support applications and Continue follow up as needed F/U APPOINTMENT: PRN Assigned SW listed in Care Team tab: Yes, No VINNY King documented in this encounterOhio State Health System06-07-2022 Miscellaneous Notes* Telephone Encounter - Charito Lopez - 03/11/2022 12:01 PM EDT Patient returned call and rescheduled. Charito Lopez * Telephone Encounter - Beckie Price RN - 03/11/2022 10:17 AM EDT Call to pt regarding missing this mornings iron infusion. Message left to return call to either come in later this afternoon, or reschedule for another day. Beckie Price RN documented in this encounterOhio State Health System06-02-2022 History of Present illness Narrative* Alyssa Goddard APRN.MARCOS - 03/06/2022 9:23 AM EDT Chief Complaint Patient presents with: Established Patient HPI: Matt Baum is a 31 year old female who presents here today for follow up PE/iron def. anemia. Per Dr. Quarles's previous note: H/o unremarkable past medical history. 05/09/2019 was working outside when noticed extreme fatigue. Was prone to low K, so thought it might be that. When went to bed that evening had 'weird' sensation in left leg--burning. Also felt uneasy in the abdomen like was going to have diarrhea. Went to BR but no need for BM, but was very nauseated suddenly. Had visual dimming and burning sensation between shoulder blades. Was taken to ED morning of 05/10. CT of the chest on 05/10/2019 demonstrated focal pulmonary embolism in a subsegmental branchin the right upper lobe. It was nonocclusive. A venous duplex ultrasound on 05/10 demonstrated no evidence of left lower extremity DVT. There was aBaker's cyst appreciated in the left popliteal fossa. Patient was discharged on Lovenox with instructions to transition to Coumadin. Presented back to the ED the next day with complaint of headache. CT of the brain showed normal unenhanced CT of the brain. Patient was given Reglan and Benadryl with improvement of the headache. She was discharged afterimprovement. Patient was seen again in the ER on 05/13 for complaints of nausea and not feeling well. No specific diagnosis. She was noted that she had a vasovagal episode after injecting herself Lovenox at morning. Was still on initial course of Lovenox when fist seen here. Coumadin dosing from 3 mg to 6 mg to 9 mg daily. INR 1.3. Coumadin had been making her nauseated. No family h/o VTE. Maternal GM had strokes. No use of OCPs. Was in the ED on 06/13/2019 with complaints of right lower extremity pain. Ultrasound was negative for DVT. She had remained on Eliquis. Was back in the ED on 08/22/2019 with complaints of shortness of breath. Workup included vitals, lab work consideration of CT but that was not done due to the fact that she was more comfortable in the ER and her vitals were normal. Was in the ED at [place] for complaint left arm tingling and heaviness. She presented because of her history of hyperkalemia in symptoms that had manifested similarly previously. Potassium was 4.1 mmol/L. Received iron sucrose February 2022. Feeling better. Tolerating lovenox inj. well. Appetite:It's better. Energy level:Better. Denies fevers. Resp:denies cough or sob Cardiac:denies chest pain/palpitations-was having palpitations prior to iron GI:denies abd pain, was having nausea-now resolved after received iron infusion, denies vomiting, moving bowels regularly :denies dysuria/hematuria Extrem:occ. leg cramping, denies pain elsewhere Skin:denies rashes Heme:denies bleeding The ROS is otherwise negative. Past medical history, appointments, medications, allergies reviewed. No changes. EXAM: BP 120/52 Pulse 80 Temp 36.9 C (98.4 F) (Temporal) Wt 62.1 kg (137 lb) LMP 07/19/2021 (Exact Date) SpO2 98% BMI 23.10 kg/m APPEARANCE Well appearing, alert, in no acute distress, well-hydrated, well nourished. HEART RRR with normal S1 and S2, no murmurs LUNG clear to auscultation LYMPH NODES No cervical lymphadenopathy, No supraclavicular lymphadenopathy and No axillary lymphadenopathy. ABDOMEN bowel sounds normoactive, soft, non-tender, non-distended, without organomegaly or palpablemasses EXTREMITIES No edema NEURO Awake, alert and oriented x 3, Normal gait and No involuntary motions. SKIN Skin color, texture, turgor normal, no suspicious rashes or lesions LABS: Component Latest Ref Rng & Units 02/05/2022 03/04/2022 WBC 3.70 - 11.00 k/uL 5.99 5.07 RBC 3.90 - 5.20 m/uL 3.71 (L) 4.12 Hemoglobin 11.5 - 15.5 g/dL 9.7 (L) 10.7 (L) Hematocrit 36.0 - 46.0 % 30.2 (L) 35.1 (L) MCV 80.0 - 100.0 fL 81.4 85.2 MCH 26.0 - 34.0 pg 26.1 26.0 MCHC 30.5 - 36.0 g/dL 32.1 30.5 RDW-CV 11.5 - 15.0 % 13.5 19.0 (H) Platelet Count 150 - 400 k/uL 143 (L) 123 (L) MPV 9.0 - 12.7 fL 11.0 11.8 Neut% % 63.8 Abs Neut (ANC) 1.45 - 7.50 k/uL 3.24 Lymph% % 24.3 Abs Lymph 1.00 - 4.00 k/uL 1.23 [place]% % 9.3 Abs [place] <0.87 k/uL 0.47 Eosin% % 1.2 Abs Eosin <0.46 k/uL 0.06 Baso% % 0.4 Abs Baso <0.11 k/uL <0.03 Immature Gran % % 1.0 IMMATURE GRANS (ABS) <0.10 k/uL 0.05 NRBC /100 WBC 0.0 Absolute nRBC <0.01 k/uL <0.01 <0.01 DTYPE Auto Component Latest Ref Rng & Units 02/13/2022 03/04/2022 Iron 41 - 186 ug/dL 50 93 TIBC 232 - 386 ug/dL >550 (H) 448 (H) Transferrin Saturation 15 - 57 % <9 (L) 21 Component Latest Ref Rng & Units 02/13/2022 03/04/2022 Ferritin 14.7 - 205.1 ng/mL 6.6 (L) 243.0 (H) ASSESSMENT/PLAN: 1. PE (pulmonary thromboembolism) (HCC) - ICD9: 415.19, ICD10: I26.[address] Quarles's previous note: Assessment: -Unprovoked PE. -Difficult getting to therapeutic INR. Rotated to Eliquis. -Continues to tolerate apixaban very well with no unusual bleeding. She has easy/unexplained bruising when she is on higher dose SSRI. Plan: -Continue apixaban. -OV in about a year. - Tolerating iron sucrose well. Feels better. - Tolerating lovenox injections well. No bleeding issues. - Reviewed labs with pt. - Continue iron infusions as scheduled. - Follow up as scheduled. - Pt. aware to call office with any questions/concerns. The patient indicates understanding of these issues and agrees with the plan. All documentation from previous visit of 01/29/22-Dr. Quarles was copied and pasted, documentation hasbeen reviewed and edited as necessary for today's visit. Alyssa Goddard APRN.DIRECTOR OF PUBLICATIONS documented in this encounterOhio State Health System06-01-2022 Miscellaneous Notes* Quick Notes - Allie Rome MD - 03/05/2022 4:36 PM EDT SW- Pt doing well. No regular ctx, vb, lof. Good FM PE: Gen- NAD, well appearing Abd- Soft, gravid, NT Ext- No edema See flowsheet A/p 32 wk - Anemia: Cont IV iron per heme - Growth US today, final report pending - H/o PE: Continue Lovenox. Discussed plan for 39 wk IOL - RTO 2 wks Allie Rome DO documented in this encounterOhio State Health System06-01-2022 Instructions* Patient Instructions* Matt Tomlinson MA - 03/05/2022 3:42 PM EDT SEQUENTIAL SCREENINGS The [facility] offers sequential screenings for women who are interested in screenings for chromosomal abnormalities and certain defects during a . The sequential screen combinesultrasound and blood tests to determine the risk of chromosomal abnormalities, including Down's Syndrome (Trisomy 21) and Trisomy 18, as well as open neural tube defects including spina bifida. Ultrasound examination is performed between 11 weeks and 13 weeks gestational age. Blood tests are drawn after the ultrasound and again later in the between 15 and 21 weeks gestational age. Please let your physician know if you are interested in this testing. It will require an appointment withour hvac operations technician. This is not an ultrasound performed by a physician in our office during a routine visit. SIGNS AND SYMPTOMS OF LABOR 1. Contractions every 10 minutes or more often 2. Clear, pink, or brownish fluid (water) leaking from vagina 3. Feeling that baby is pushing down, pressure 4. Low, dull backache 5. Cramps that feel like a period 6. Cramps with or without diarrhea If you notice any of the above symptoms, contact our office at [phone] and ask to speak with anurse. After hours, you can call doctors registry at [phone] OR call [facility] at [phone] ask to have the doctor personal injury litigation paralegal paged. If you consider this an emergency, dial 91-0 or go to your nearest emergency department. NEED HELP? Are you dealing with a violent or abusive relationship? Are you a victim of rape or sexual assult? Call [facility] ([place]) 24 hour Crisis Hotline: 247.292.1969 or 043-308-8831. MANUAL Your Guide to a Healthy manual is now on-line. Visit [email or web address] to download your free copy documented in this encounterOhio State Health System05-23-2022 Miscellaneous Notes* Telephone Encounter - Katina Ruiz MD - 02/24/2022 3:39 PM EDT L&D notified and orders given. Katina Ruzi MD * Telephone Encounter - Meliza Burgos LPN - 02/24/2022 3:32 PM EDT Ob patient is 31w3d and called c/o persistent headache since Thursday and had tried Tylenol with little to no relief. Patient states that this morning she began to have right upper to mid abdominal pain and an increase in nausea and stated I don't feel well to nurse . Denies vision changes, no increase in swelling. Discussed with Dr. Ruiz and patient is going to go to L&D for evaluation. documented in this encounterOhio State Health System05-23-2022 Miscellaneous Notes* Telephone Encounter - Bia Cleaning APRN.CNP - 02/24/2022 10:28 AM EDT +GBS in urine. No treatment needed. Bia Cleaning APRN.CNP documented in this encounterOhio State Health System05-18-2022 Miscellaneous Notes* Quick Notes - Allie Rome MD - 02/19/2022 4:57 PM EDT SW- Pt doing well. Mood is stable. Relationship with is good. No ctx, pain, vb, lof. Good FM. PE: Gen- NAD, well appearing Abd- Soft, gravid, NT Ext- No edema See flowsheet A/p 31 wk - H/o PE: Cont to follow with heme and cont Lovenox - Iron deficiency anemia: IV iron infusions - TSH now WNL. Will repeat in 4-6 weeks - Discussed again recommend GDM screening is either 1 hour GTT or checking BG 4x daily for 2 weeks.Patient states understanding and declines BG checks at this time - RTO 2 wks Allie Rome DO documented in this encounterOhio State Health System05-18-2022 Instructions* Patient Instructions* Matt Tomlinson MA - 02/19/2022 4:33 PM EDT SEQUENTIAL SCREENINGS The [facility] offers sequential screenings for women who are interested in screenings for chromosomal abnormalities and certain defects during a . The sequential screen combinesultrasound and blood tests to determine the risk of chromosomal abnormalities, including Down's Syndrome (Trisomy 21) and Trisomy 18, as well as open neural tube defects including spina bifida. Ultrasound examination is performed between 11 weeks and 13 weeks gestational age. Blood tests are drawn after the ultrasound and again later in the between 15 and 21 weeks gestational age. Please let your physician know if you are interested in this testing. It will require an appointment withour hvac operations technician. This is not an ultrasound performed by a physician in our office during a routine visit. SIGNS AND SYMPTOMS OF LABOR 1. Contractions every 10 minutes or more often 2. Clear, pink, or brownish fluid (water) leaking from vagina 3. Feeling that baby is pushing down, pressure 4. Low, dull backache 5. Cramps that feel like a period 6. Cramps with or without diarrhea If you notice any of the above symptoms, contact our office at [phone] and ask to speak with anurse. After hours, you can call doctors registry at [phone] OR call [facility] at [phone] ask to have the doctor personal injury litigation paralegal paged. If you consider this an emergency, dial 4-6-4 or go to your nearest emergency department. NEED HELP? Are you dealing with a violent or abusive relationship? Are you a victim of rape or sexual assult? Call [facility] ([place]) 24 hour Crisis Hotline: 791.727.3411 or 109-307-0457. MANUAL Your Guide to a Healthy manual is now on-line. Visit [email or web address] to download your free copy documented in this encounterOhio State Health System05-16-2022 Miscellaneous Notes* Telephone Encounter - Allie Rome MD - 02/17/2022 8:28 AM EDT Order placed Pt could not complete 1 hr GTT and declines checking BG 4x daily as recommended documented in this encounterOhio State Health System05-12-2022 History of Present illness Narrative* VINNY King - 02/13/2022 2:45 PM EDT SOCIAL WORK FOLLOW UP NOTE[facility] Date of service: February 13, 2022 Matt Baum is being seen for a follow up social work visit. Today's visit includes: patient TOPICS ADDRESSED: Finances; Patient picked up medication. No other needs identified. PLAN: Continue follow up as needed F/U APPOINTMENT: PRN Assigned SW listed in Care Team tab: Yes VINNY King documented in this encounterOhio State Health System05-11-2022 Miscellaneous Notes* Telephone Encounter - VINNY King - 02/12/2022 3:58 PM EDT SOCIAL WORK FOLLOW UP NOTE: [facility] Date of service: February 12, 2022 Matt Baum is being seen for a follow up social work visit. 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 Patient will come tomorrow. Patient denies other needs. PLAN: Assist with financial support applications and Continue follow up as needed F/U APPOINTMENT: PRN Assigned SW listed in Care Team tab: Yes VINNY King documented in this encounterOhio State Health System05-05-2022 Miscellaneous Notes* Telephone Encounter - Suzan Nazario RN - 02/06/2022 11:23 AM EDT Patient notified and voiced understanding of below. Lab appointment scheduled. Suzan Nazario RN * Telephone Encounter - Allie Rome MD - 02/06/2022 11:11 AM EDT I typically recommend 2 weeks of blood sugar checks 4x daily, as she was unable to drink the entireglucola drink. We can check a fasting BG and hgb a1c, but this is not as good as checking blood sugars. Orders placed - she can have the labs drawn when she comes in for her TSH * Telephone Encounter - Eloise Gudino RN - 02/06/2022 10:38 AM EDT 28w6d Patient called tearful on the phone. Asking if there is another option for glucose testing instead of the glucola since she had an allergic reaction. Does not want to check her BS four times a day. Again, patient tearful on the phone. Is there another option for patient for testing? Eloise Gudino RN documented in this encounterOhio State Health System05-04-2022 History of Present illness Narrative* VINNY King - 02/05/2022 11:12 AM EDT SOCIAL WORK FOLLOW UP NOTE: [facility] Date of service: February 05, 2022 Matt Baum is being seen for a follow up social work visit. Today's visit includes: patient TOPICS ADDRESSED: Finances; SW assisted with refill for Lovenox medication. [facility]. No other needs identified. PLAN: Continue follow up as needed F/U APPOINTMENT: PRN Assigned SW listed in Care Team tab: Yes VINNY King documented in this encounterOhio State Health System05-04-2022 Miscellaneous Notes* Telephone Encounter - VINNY King - 02/05/2022 10:49 AM EDT Refill ordered. * Telephone Encounter - Char Pugh LPN - 02/05/2022 10:25 AM EDT Left message on VM. Also sent MyChart message. Char Pugh LPN * Telephone Encounter - Maria M Quarles DO - 02/05/2022 10:11 AM EDT She can increase the dose of Lovenox and inject the full 60 mg twice daily. Maria M Quarles DO * Telephone Encounter - Audelia Garza LPN - 02/05/2022 9:03 AM EDT Pt saw Dr Rome today and her weight was documented as 132 lb. Audelia Garza LPN documented in this encounterOhio State Health System05-04-2022 Miscellaneous Notes* Quick Notes - Allie Rome MD - 02/05/2022 8:43 AM EDT SW- Could not complete glucola as she states her throat was burning. She reports an allergy to citrus, and it makes her head feel foggy. No SOB or swelling. Drank half the glucola. Otherwise doing well. No pain, vb, lof. Good FM. Mood stable. PE: Gen- NAD, well appearing Abd- Soft, gravid, NT Ext- No edema See flowsheet A/p 28 wk gestation - 28 wk labs today. Pt could not complete glucola. Supplies sent to check blood sugar 4x daily for 2 weeks. To bring BG log to next visit - Discussed Tdap and she would like to wait for next visit - PPBC: had vasectomy. Considering Mirena IUD. Declines immediate placement - TSH to be completed 4 weeks after change in med dose - 32 wk growth US ordered - RTO 2 wks Allie Rome DO documented in this encounterOhio State Health System05-04-2022 Instructions* Patient Instructions* Linda Ruiz Ma - 02/05/2022 8:24 AM EDT SEQUENTIAL SCREENINGS The [facility] offers sequential screenings for women who are interested in screenings for chromosomal abnormalities and certain defects during a . The sequential screen combinesultrasound and blood tests to determine the risk of chromosomal abnormalities, including Down's Syndrome (Trisomy 21) and Trisomy 18, as well as open neural tube defects including spina bifida. Ultrasound examination is performed between 11 weeks and 13 weeks gestational age. Blood tests are drawn after the ultrasound and again later in the between 15 and 21 weeks gestational age. Please let your physician know if you are interested in this testing. It will require an appointment withour hvac operations technician. This is not an ultrasound performed by a physician in our office during a routine visit. SIGNS AND SYMPTOMS OF LABOR 1. Contractions every 10 minutes or more often 2. Clear, pink, or brownish fluid (water) leaking from vagina 3. Feeling that baby is pushing down, pressure 4. Low, dull backache 5. Cramps that feel like a period 6. Cramps with or without diarrhea If you notice any of the above symptoms, contact our office at [phone] and ask to speak with anurse. After hours, you can call doctors registry at [phone] OR call [facility] at [phone] ask to have the doctor personal injury litigation paralegal paged. If you consider this an emergency, dial 9-1-6 or go to your nearest emergency department. NEED HELP? Are you dealing with a violent or abusive relationship? Are you a victim of rape or sexual assult? Call [facility] [place] ([place]) 24 hour Crisis Hotline: 346.365.6290 or 732-106-8419. MANUAL Your Guide to a Healthy manual is now on-line. Visit [email or web address] to download your free copy documented in this encounterOhio State Health System04-13-2022 Miscellaneous Notes* Telephone Encounter - Angelic Pierre RN - 01/15/2022 1:24 PM EDT Patient notified. Angelic Pierre RN * Telephone Encounter - Eloise Gudino RN - 01/15/2022 8:04 AM EDT Left message for patient to call office. Eloise Gudino RN * Telephone Encounter - Allie Rome MD - 01/15/2022 7:54 AM EDT Please call pt and let her know I sent in new synthroid rx - increased dose to 150. To have repeat TSH in 4 weeks documented in this encounterOhio State Health System04-07-2022 Miscellaneous Notes* Telephone Encounter - Char Pugh LPN - 01/09/2022 12:12 PM EDT Patient notified. Char Pugh LPN * Telephone Encounter - Maria M Quarles DO - 01/09/2022 11:33 AM EDT Yes, that can be normal. She is probably having small hematomas accounting for the pea-sized lumps.Sometimes some warm compresses can help those resolve faster than they will on their own. Maria M Quarles DO * Telephone Encounter - VINNY King - 01/09/2022 11:29 AM EDT Patient reports pea-sized lumps under bruises where she injects herself with Lovenox that started a few weeks ago. This past weekend patient states she started getting purple spots around injection sites. Patient wondering if this is normal? Please advise. documented in this encounterOhio State Health System04-07-2022 History of Present illness Narrative* VINNY King - 01/09/2022 10:59 AM EDT SOCIAL WORK FOLLOW UP NOTE: [facility] Date of service: January 09, 2022 Matt Brijesh Sarika is being seen for a follow up social work visit. Today's visit includes: patient TOPICS ADDRESSED: Patient picked up medication. No other needs identified. PLAN: Continue follow up as needed F/U APPOINTMENT: PRN VINNY King documented in this encounterOhio State Health System04-07-2022 Miscellaneous Notes* Quick Notes - Allie Rome MD - 01/09/2022 10:09 AM EDT SW- Pt doing well. No pain, vb, lof. Good FM. PE: Gen- NAD, well appearing Abd- Soft, NT Ext- No edema See flowsheet A/p 24 wk gestation - N/V: Continue to watch weight gain. Discussed may need growth US in 3rd trimester. Start Pepcid - TSH today - 28 wk labs ordered - Continue lovenox and weight checks - Seeing therapy and mood stable on Zoloft - Discussed 39 wk IOL - RTO 4 wks Allie Rome DO documented in this encounterOhio State Health System04-07-2022 Instructions* Patient Instructions* Matt Tomlinson MA - 01/09/2022 9:59 AM EDT Pepcid 10 mg twice daily and if no improvement take 20 mg twice daily SEQUENTIAL SCREENINGS The [facility] offers sequential screenings for women who are interested in screenings for chromosomal abnormalities and certain defects during a . The sequential screen combinesultrasound and blood tests to determine the risk of chromosomal abnormalities, including Down's Syndrome (Trisomy 21) and Trisomy 18, as well as open neural tube defects including spina bifida. Ultrasound examination is performed between 11 weeks and 13 weeks gestational age. Blood tests are drawn after the ultrasound and again later in the between 15 and 21 weeks gestational age. Please let your physician know if you are interested in this testing. It will require an appointment withour hvac operations technician. This is not an ultrasound performed by a physician in our office during a routine visit. SIGNS AND SYMPTOMS OF LABOR 1. Contractions every 10 minutes or more often 2. Clear, pink, or brownish fluid (water) leaking from vagina 3. Feeling that baby is pushing down, pressure 4. Low, dull backache 5. Cramps that feel like a period 6. Cramps with or without diarrhea If you notice any of the above symptoms, contact our office at [phone] and ask to speak with anurse. After hours, you can call doctors registry at [phone] OR call [facility] at [phone] ask to have the doctor personal injury litigation paralegal paged. If you consider this an emergency, dial 9--1 or go to your nearest emergency department. NEED HELP? Are you dealing with a violent or abusive relationship? Are you a victim of rape or sexual assult? Call [facility] ([place]) 24 hour Crisis Hotline: 122.887.9395 or 342-702-6797. MANUAL Your Guide to a Healthy manual is now on-line. Visit [email or web address] to download your free copy documented in this encounterOhio State Health System04-01-2022 Miscellaneous Notes* Telephone Encounter - VINNY King - 01/03/2022 11:05 AM EDT SOCIAL WORK FOLLOW UP NOTE: [facility] Date of service: January 03, 2022 Matt Baum is being seen for a follow up social work visit. Today's visit includes: patient and [employer] TOPICS ADDRESSED: Finances; Patient called stating she will need reorder of [facility]. [facility] SW received reorder form via fax and completed this and sent [facility] to [facility].No other needs identified. 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 She uses an Albuterol Inhaler PRN.TKRN History of stomach ulcers 02/07/20142013 Overview: 02/07/2014.She was treated for a stomach ulcer when she was in high school. TKRN Nausea/vomiting in 02/07/2014 Overview: 02/07/2014Patient is complaining of nausea in . She denies any vomiting. She wishes to try vitamin B6 100 mg daily. Advised patient to call/come in if she is unable to keep any food or fluids down in a 24-hour period. TKRN Group B streptococcal infect ion in child of prior , currently 02/07/2014 01/28/2016 Overview: 02/07/2014Patient states that her previous baby was hospitalized for approximately 3 weeks on and off beginning at age 5 weeks for positive group B strep infection. 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 She uses an Albuterol Inhaler PRN.TKRN History of stomach ulcers 02/07/20142013 Overview: 02/07/2014.She was treated for a stomach ulcer when she was in high school. TKRN Nausea/vomiting in 02/07/2014 Overview: 02/07/2014Patient is complaining of nausea in . She denies any vomiting. She wishes to try vitamin B6 100 mg daily. Advised patient to call/come in if she is unable to keep any food or fluids down in a 24-hour period. TKRN Group B streptococcal infect ion in child of prior , currently 02/07/2014 01/28/2016 Overview: 02/07/2014Patient states that her previous baby was hospitalized for approximately 3 weeks on and off beginning at age 5 weeks for positive group B strep infection. 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 She uses an Albuterol Inhaler PRN.TKRN History of stomach ulcers 02/07/20142013 Overview: 02/07/2014.She was treated for a stomach ulcer when she was in high school. TKRN Nausea/vomiting in 02/07/2014 Overview: 02/07/2014Patient is complaining of nausea in . She denies any vomiting. She wishes to try vitamin B6 100 mg daily. Advised patient to call/come in if she is unable to keep any food or fluids down in a 24-hour period. TKRN Group B streptococcal infect ion in child of prior , currently 02/07/2014 01/28/2016 Overview: 02/07/2014Patient states that her previous baby was hospitalized for approximately 3 weeks on and off beginning at age 5 weeks for positive group B strep infection. 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 She uses an Albuterol Inhaler PRN.TKRN History of stomach ulcers 02/07/20142013 Overview: 02/07/2014.She was treated for a stomach ulcer when she was in high school. TKRN Nausea/vomiting in 02/07/2014 Overview: 02/07/2014Patient is complaining of nausea in . She denies any vomiting. She wishes to try vitamin B6 100 mg daily. Advised patient to call/come in if she is unable to keep any food or fluids down in a 24-hour period. TKRN Group B streptococcal infect ion in child of prior , currently 02/07/2014 01/28/2016 Overview: 02/07/2014Patient states that her previous baby was hospitalized for approximately 3 weeks on and off beginning at age 5 weeks for positive group B strep infection. 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 She uses an Albuterol Inhaler PRN.TKRN History of stomach ulcers 02/07/20142013 Overview: 02/07/2014.She was treated for a stomach ulcer when she was in high school. TKRN Nausea/vomiting in 02/07/2014 Overview: 02/07/2014Patient is complaining of nausea in . She denies any vomiting. She wishes to try vitamin B6 100 mg daily. Advised patient to call/come in if she is unable to keep any food or fluids down in a 24-hour period. TKRN Group B streptococcal infect ion in child of prior , currently 02/07/2014 01/28/2016 Overview: 02/07/2014Patient states that her previous baby was hospitalized for approximately 3 weeks on and off beginning at age 5 weeks for positive group B strep infection. 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 She uses an Albuterol Inhaler PRN.TKRN History of stomach ulcers 02/07/20142013 Overview: 02/07/2014.She was treated for a stomach ulcer when she was in high school. TKRN Nausea/vomiting in 02/07/2014 Overview: 02/07/2014Patient is complaining of nausea in . She denies any vomiting. She wishes to try vitamin B6 100 mg daily. Advised patient to call/come in if she is unable to keep any food or fluids down in a 24-hour period. TKRN Group B streptococcal infect ion in child of prior , currently 02/07/2014 01/28/2016 Overview: 02/07/2014Patient states that her previous baby was hospitalized for approximately 3 weeks on and off beginning at age 5 weeks for positive group B strep infection. 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 She uses an Albuterol Inhaler PRN.TKRN History of stomach ulcers 02/07/20142013 Overview: 02/07/2014.She was treated for a stomach ulcer when she was in high school. TKRN Nausea/vomiting in 02/07/2014 Overview: 02/07/2014Patient is complaining of nausea in . She denies any vomiting. She wishes to try vitamin B6 100 mg daily. Advised patient to call/come in if she is unable to keep any food or fluids down in a 24-hour period. TKRN Group B streptococcal infect ion in child of prior , currently 02/07/2014 01/28/2016 Overview: 02/07/2014Patient states that her previous baby was hospitalized for approximately 3 weeks on and off beginning at age 5 weeks for positive group B strep infection. 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 She uses an Albuterol Inhaler PRN.TKRN History of stomach ulcers 02/07/20142013 Overview: 02/07/2014.She was treated for a stomach ulcer when she was in high school. TKRN Nausea/vomiting in 02/07/2014 Overview: 02/07/2014Patient is complaining of nausea in . She denies any vomiting. She wishes to try vitamin B6 100 mg daily. Advised patient to call/come in if she is unable to keep any food or fluids down in a 24-hour period. TKRN Group B streptococcal infect ion in child of prior , currently 02/07/2014 01/28/2016 Overview: 02/07/2014Patient states that her previous baby was hospitalized for approximately 3 weeks on and off beginning at age 5 weeks for positive group B strep infection. 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 She uses an Albuterol Inhaler PRN.TKRN History of stomach ulcers 02/07/20142013 Overview: 02/07/2014.She was treated for a stomach ulcer when she was in high school. TKRN Nausea/vomiting in 02/07/2014 Overview: 02/07/2014Patient is complaining of nausea in . She denies any vomiting. She wishes to try vitamin B6 100 mg daily. Advised patient to call/come in if she is unable to keep any food or fluids down in a 24-hour period. TKRN Group B streptococcal infect ion in child of prior , currently 02/07/2014 01/28/2016 Overview: 02/07/2014Patient states that her previous baby was hospitalized for approximately 3 weeks on and off beginning at age 5 weeks for positive group B strep infection. 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 She uses an Albuterol Inhaler PRN.TKRN History of stomach ulcers 02/07/20142013 Overview: 02/07/2014.She was treated for a stomach ulcer when she was in high school. TKRN Nausea/vomiting in 02/07/2014 Overview: 02/07/2014Patient is complaining of nausea in . She denies any vomiting. She wishes to try vitamin B6 100 mg daily. Advised patient to call/come in if she is unable to keep any food or fluids down in a 24-hour period. TKRN Group B streptococcal infect ion in child of prior , currently 02/07/2014 01/28/2016 Overview: 02/07/2014Patient states that her previous baby was hospitalized for approximately 3 weeks on and off beginning at age 5 weeks for positive group B strep infection. 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 She uses an Albuterol Inhaler PRN.TKRN History of stomach ulcers 02/07/20142013 Overview: 02/07/2014.She was treated for a stomach ulcer when she was in high school. TKRN Nausea/vomiting in 02/07/2014 Overview: 02/07/2014Patient is complaining of nausea in . She denies any vomiting. She wishes to try vitamin B6 100 mg daily. Advised patient to call/come in if she is unable to keep any food or fluids down in a 24-hour period. TKRN Group B streptococcal infect ion in child of prior , currently 02/07/2014 01/28/2016 Overview: 02/07/2014Patient states that her previous baby was hospitalized for approximately 3 weeks on and off beginning at age 5 weeks for positive group B strep infection. 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 She uses an Albuterol Inhaler PRN.TKRN History of stomach ulcers 02/07/20142013 Overview: 02/07/2014.She was treated for a stomach ulcer when she was in high school. TKRN Nausea/vomiting in 02/07/2014 Overview: 02/07/2014Patient is complaining of nausea in . She denies any vomiting. She wishes to try vitamin B6 100 mg daily. Advised patient to call/come in if she is unable to keep any food or fluids down in a 24-hour period. TKRN Group B streptococcal infect ion in child of prior , currently 02/07/2014 01/28/2016 Overview: 02/07/2014Patient states that her previous baby was hospitalized for approximately 3 weeks on and off beginning at age 5 weeks for positive group B strep infection. 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 She uses an Albuterol Inhaler PRN.TKRN History of stomach ulcers 02/07/20142013 Overview: 02/07/2014.She was treated for a stomach ulcer when she was in high school. TKRN Nausea/vomiting in 02/07/2014 Overview: 02/07/2014Patient is complaining of nausea in . She denies any vomiting. She wishes to try vitamin B6 100 mg daily. Advised patient to call/come in if she is unable to keep any food or fluids down in a 24-hour period. TKRN Group B streptococcal infect ion in child of prior , currently 02/07/2014 01/28/2016 Overview: 02/07/2014Patient states that her previous baby was hospitalized for approximately 3 weeks on and off beginning at age 5 weeks for positive group B strep infection. 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 She uses an Albuterol Inhaler PRN.TKRN History of stomach ulcers 02/07/20142013 Overview: 02/07/2014.She was treated for a stomach ulcer when she was in high school. TKRN Nausea/vomiting in 02/07/2014 Overview: 02/07/2014Patient is complaining of nausea in . She denies any vomiting. She wishes to try vitamin B6 100 mg daily. Advised patient to call/come in if she is unable to keep any food or fluids down in a 24-hour period. TKRN Group B streptococcal infect ion in child of prior , currently 02/07/2014 01/28/2016 Overview: 02/07/2014Patient states that her previous baby was hospitalized for approximately 3 weeks on and off beginning at age 5 weeks for positive group B strep infection. 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 She uses an Albuterol Inhaler PRN.TKRN History of stomach ulcers 02/07/20142013 Overview: 02/07/2014.She was treated for a stomach ulcer when she was in high school. TKRN Nausea/vomiting in 02/07/2014 Overview: 02/07/2014Patient is complaining of nausea in . She denies any vomiting. She wishes to try vitamin B6 100 mg daily. Advised patient to call/come in if she is unable to keep any food or fluids down in a 24-hour period. TKRN Group B streptococcal infect ion in child of prior , currently 02/07/2014 01/28/2016 Overview: 02/07/2014Patient states that her previous baby was hospitalized for approximately 3 weeks on and off beginning at age 5 weeks for positive group B strep infection. 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 She uses an Albuterol Inhaler PRN.TKRN History of stomach ulcers 02/07/20142013 Overview: 02/07/2014.She was treated for a stomach ulcer when she was in high school. TKRN Nausea/vomiting in 02/07/2014 Overview: 02/07/2014Patient is complaining of nausea in . She denies any vomiting. She wishes to try vitamin B6 100 mg daily. Advised patient to call/come in if she is unable to keep any food or fluids down in a 24-hour period. TKRN Group B streptococcal infect ion in child of prior , currently 02/07/2014 01/28/2016 Overview: 02/07/2014Patient states that her previous baby was hospitalized for approximately 3 weeks on and off beginning at age 5 weeks for positive group B strep infection. 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 She uses an Albuterol Inhaler PRN.TKRN History of stomach ulcers 02/07/20142013 Overview: 02/07/2014.She was treated for a stomach ulcer when she was in high school. TKRN Nausea/vomiting in 02/07/2014 Overview: 02/07/2014Patient is complaining of nausea in . She denies any vomiting. She wishes to try vitamin B6 100 mg daily. Advised patient to call/come in if she is unable to keep any food or fluids down in a 24-hour period. TKRN Group B streptococcal infect ion in child of prior , currently 02/07/2014 01/28/2016 Overview: 02/07/2014Patient states that her previous baby was hospitalized for approximately 3 weeks on and off beginning at age 5 weeks for positive group B strep infection. 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 She uses an Albuterol Inhaler PRN.TKRN History of stomach ulcers 02/07/20142013 Overview: 02/07/2014.She was treated for a stomach ulcer when she was in high school. TKRN Nausea/vomiting in 02/07/2014 Overview: 02/07/2014Patient is complaining of nausea in . She denies any vomiting. She wishes to try vitamin B6 100 mg daily. Advised patient to call/come in if she is unable to keep any food or fluids down in a 24-hour period. TKRN Group B streptococcal infect ion in child of prior , currently 02/07/2014 01/28/2016 Overview: 02/07/2014Patient states that her previous baby was hospitalized for approximately 3 weeks on and off beginning at age 5 weeks for positive group B strep infection. 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 She uses an Albuterol Inhaler PRN.TKRN History of stomach ulcers 02/07/20142013 Overview: 02/07/2014.She was treated for a stomach ulcer when she was in high school. TKRN Nausea/vomiting in 02/07/2014 Overview: 02/07/2014Patient is complaining of nausea in . She denies any vomiting. She wishes to try vitamin B6 100 mg daily. Advised patient to call/come in if she is unable to keep any food or fluids down in a 24-hour period. TKRN Group B streptococcal infect ion in child of prior , currently 02/07/2014 01/28/2016 Overview: 02/07/2014Patient states that her previous baby was hospitalized for approximately 3 weeks on and off beginning at age 5 weeks for positive group B strep infection. 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 She uses an Albuterol Inhaler PRN.TKRN History of stomach ulcers 02/07/20142013 Overview: 02/07/2014.She was treated for a stomach ulcer when she was in high school. TKRN Nausea/vomiting in 02/07/2014 Overview: 02/07/2014Patient is complaining of nausea in . She denies any vomiting. She wishes to try vitamin B6 100 mg daily. Advised patient to call/come in if she is unable to keep any food or fluids down in a 24-hour period. TKRN Group B streptococcal infect ion in child of prior , currently 02/07/2014 01/28/2016 Overview: 02/07/2014Patient states that her previous baby was hospitalized for approximately 3 weeks on and off beginning at age 5 weeks for positive group B strep infection. 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 She uses an Albuterol Inhaler PRN.TKRN History of stomach ulcers 02/07/20142013 Overview: 02/07/2014.She was treated for a stomach ulcer when she was in high school. TKRN Nausea/vomiting in 02/07/2014 Overview: 02/07/2014Patient is complaining of nausea in . She denies any vomiting. She wishes to try vitamin B6 100 mg daily. Advised patient to call/come in if she is unable to keep any food or fluids down in a 24-hour period. TKRN Group B streptococcal infect ion in child of prior , currently 02/07/2014 01/28/2016 Overview: 02/07/2014Patient states that her previous baby was hospitalized for approximately 3 weeks on and off beginning at age 5 weeks for positive group B strep infection. 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 She uses an Albuterol Inhaler PRN.TKRN History of stomach ulcers 02/07/20142013 Overview: 02/07/2014.She was treated for a stomach ulcer when she was in high school. TKRN Nausea/vomiting in 02/07/2014 Overview: 02/07/2014Patient is complaining of nausea in . She denies any vomiting. She wishes to try vitamin B6 100 mg daily. Advised patient to call/come in if she is unable to keep any food or fluids down in a 24-hour period. TKRN Group B streptococcal infect ion in child of prior , currently 02/07/2014 01/28/2016 Overview: 02/07/2014Patient states that her previous baby was hospitalized for approximately 3 weeks on and off beginning at age 5 weeks for positive group B strep infection. 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 She uses an Albuterol Inhaler PRN.TKRN History of stomach ulcers 02/07/20142013 Overview: 02/07/2014.She was treated for a stomach ulcer when she was in high school. TKRN Nausea/vomiting in 02/07/2014 Overview: 02/07/2014Patient is complaining of nausea in . She denies any vomiting. She wishes to try vitamin B6 100 mg daily. Advised patient to call/come in if she is unable to keep any food or fluids down in a 24-hour period. TKRN Group B streptococcal infect ion in child of prior , currently 02/07/2014 01/28/2016 Overview: 02/07/2014Patient states that her previous baby was hospitalized for approximately 3 weeks on and off beginning at age 5 weeks for positive group B strep infection. 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 She uses an Albuterol Inhaler PRN.TKRN History of stomach ulcers 02/07/20142013 Overview: 02/07/2014.She was treated for a stomach ulcer when she was in high school. TKRN Nausea/vomiting in 02/07/2014 Overview: 02/07/2014Patient is complaining of nausea in . She denies any vomiting. She wishes to try vitamin B6 100 mg daily. Advised patient to call/come in if she is unable to keep any food or fluids down in a 24-hour period. TKRN Group B streptococcal infect ion in child of prior , currently 02/07/2014 01/28/2016 Overview: 02/07/2014Patient states that her previous baby was hospitalized for approximately 3 weeks on and off beginning at age 5 weeks for positive group B strep infection. 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 She uses an Albuterol Inhaler PRN.TKRN History of stomach ulcers 02/07/20142013 Overview: 02/07/2014.She was treated for a stomach ulcer when she was in high school. TKRN Nausea/vomiting in 02/07/2014 Overview: 02/07/2014Patient is complaining of nausea in . She denies any vomiting. She wishes to try vitamin B6 100 mg daily. Advised patient to call/come in if she is unable to keep any food or fluids down in a 24-hour period. TKRN Group B streptococcal infect ion in child of prior , currently 02/07/2014 01/28/2016 Overview: 02/07/2014Patient states that her previous baby was hospitalized for approximately 3 weeks on and off beginning at age 5 weeks for positive group B strep infection. 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 She uses an Albuterol Inhaler PRN.TKRN History of stomach ulcers 02/07/20142013 Overview: 02/07/2014.She was treated for a stomach ulcer when she was in high school. TKRN Nausea/vomiting in 02/07/2014 Overview: 02/07/2014Patient is complaining of nausea in . She denies any vomiting. She wishes to try vitamin B6 100 mg daily. Advised patient to call/come in if she is unable to keep any food or fluids down in a 24-hour period. TKRN Group B streptococcal infect ion in child of prior , currently 02/07/2014 01/28/2016 Overview: 02/07/2014Patient states that her previous baby was hospitalized for approximately 3 weeks on and off beginning at age 5 weeks for positive group B strep infection. 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 She uses an Albuterol Inhaler PRN.TKRN History of stomach ulcers 02/07/20142013 Overview: 02/07/2014.She was treated for a stomach ulcer when she was in high school. TKRN Nausea/vomiting in 02/07/2014 Overview: 02/07/2014Patient is complaining of nausea in . She denies any vomiting. She wishes to try vitamin B6 100 mg daily. Advised patient to call/come in if she is unable to keep any food or fluids down in a 24-hour period. TKRN Group B streptococcal infect ion in child of prior , currently 02/07/2014 01/28/2016 Overview: 02/07/2014Patient states that her previous baby was hospitalized for approximately 3 weeks on and off beginning at age 5 weeks for positive group B strep infection. 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 She uses an Albuterol Inhaler PRN.TKRN History of stomach ulcers 02/07/20142013 Overview: 02/07/2014.She was treated for a stomach ulcer when she was in high school. TKRN Nausea/vomiting in 02/07/2014 Overview: 02/07/2014Patient is complaining of nausea in . She denies any vomiting. She wishes to try vitamin B6 100 mg daily. Advised patient to call/come in if she is unable to keep any food or fluids down in a 24-hour period. TKRN Group B streptococcal infect ion in child of prior , currently 02/07/2014 01/28/2016 Overview: 02/07/2014Patient states that her previous baby was hospitalized for approximately 3 weeks on and off beginning at age 5 weeks for positive group B strep infection. 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 She uses an Albuterol Inhaler PRN.TKRN History of stomach ulcers 02/07/20142013 Overview: 02/07/2014.She was treated for a stomach ulcer when she was in high school. TKRN Nausea/vomiting in 02/07/2014 Overview: 02/07/2014Patient is complaining of nausea in . She denies any vomiting. She wishes to try vitamin B6 100 mg daily. Advised patient to call/come in if she is unable to keep any food or fluids down in a 24-hour period. TKRN Group B streptococcal infect ion in child of prior , currently 02/07/2014 01/28/2016 Overview: 02/07/2014Patient states that her previous baby was hospitalized for approximately 3 weeks on and off beginning at age 5 weeks for positive group B strep infection. 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 She uses an Albuterol Inhaler PRN.TKRN History of stomach ulcers 02/07/20142013 Overview: 02/07/2014.She was treated for a stomach ulcer when she was in high school. TKRN Nausea/vomiting in 02/07/2014 Overview: 02/07/2014Patient is complaining of nausea in . She denies any vomiting. She wishes to try vitamin B6 100 mg daily. Advised patient to call/come in if she is unable to keep any food or fluids down in a 24-hour period. TKRN Group B streptococcal infect ion in child of prior , currently 02/07/2014 01/28/2016 Overview: 02/07/2014Patient states that her previous baby was hospitalized for approximately 3 weeks on and off beginning at age 5 weeks for positive group B strep infection. 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 She uses an Albuterol Inhaler PRN.TKRN History of stomach ulcers 02/07/20142013 Overview: 02/07/2014.She was treated for a stomach ulcer when she was in high school. TKRN Nausea/vomiting in 02/07/2014 Overview: 02/07/2014Patient is complaining of nausea in . She denies any vomiting. She wishes to try vitamin B6 100 mg daily. Advised patient to call/come in if she is unable to keep any food or fluids down in a 24-hour period. TKRN Group B streptococcal infect ion in child of prior , currently 02/07/2014 01/28/2016 Overview: 02/07/2014Patient states that her previous baby was hospitalized for approximately 3 weeks on and off beginning at age 5 weeks for positive group B strep infection. 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 She uses an Albuterol Inhaler PRN.TKRN History of stomach ulcers 02/07/20142013 Overview: 02/07/2014.She was treated for a stomach ulcer when she was in high school. TKRN Nausea/vomiting in 02/07/2014 Overview: 02/07/2014Patient is complaining of nausea in . She denies any vomiting. She wishes to try vitamin B6 100 mg daily. Advised patient to call/come in if she is unable to keep any food or fluids down in a 24-hour period. TKRN Group B streptococcal infect ion in child of prior , currently 02/07/2014 01/28/2016 Overview: 02/07/2014Patient states that her previous baby was hospitalized for approximately 3 weeks on and off beginning at age 5 weeks for positive group B strep infection. 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 She uses an Albuterol Inhaler PRN.TKRN History of stomach ulcers 02/07/20142013 Overview: 02/07/2014.She was treated for a stomach ulcer when she was in high school. TKRN Nausea/vomiting in 02/07/2014 Overview: 02/07/2014Patient is complaining of nausea in . She denies any vomiting. She wishes to try vitamin B6 100 mg daily. Advised patient to call/come in if she is unable to keep any food or fluids down in a 24-hour period. TKRN Group B streptococcal infect ion in child of prior , currently 02/07/2014 01/28/2016 Overview: 02/07/2014Patient states that her previous baby was hospitalized for approximately 3 weeks on and off beginning at age 5 weeks for positive group B strep infection. 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 She uses an Albuterol Inhaler PRN.TKRN History of stomach ulcers 02/07/20142013 Overview: 02/07/2014.She was treated for a stomach ulcer when she was in high school. TKRN Nausea/vomiting in 02/07/2014 Overview: 02/07/2014Patient is complaining of nausea in . She denies any vomiting. She wishes to try vitamin B6 100 mg daily. Advised patient to call/come in if she is unable to keep any food or fluids down in a 24-hour period. TKRN Group B streptococcal infect ion in child of prior , currently 02/07/2014 01/28/2016 Overview: 02/07/2014Patient states that her previous baby was hospitalized for approximately 3 weeks on and off beginning at age 5 weeks for positive group B strep infection. 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 She uses an Albuterol Inhaler PRN.TKRN History of stomach ulcers 02/07/20142013 Overview: 02/07/2014.She was treated for a stomach ulcer when she was in high school. TKRN Nausea/vomiting in 02/07/2014 Overview: 02/07/2014Patient is complaining of nausea in . She denies any vomiting. She wishes to try vitamin B6 100 mg daily. Advised patient to call/come in if she is unable to keep any food or fluids down in a 24-hour period. TKRN Group B streptococcal infect ion in child of prior , currently 02/07/2014 01/28/2016 Overview: 02/07/2014Patient states that her previous baby was hospitalized for approximately 3 weeks on and off beginning at age 5 weeks for positive group B strep infection. Nata MCBRIDEN RN Fundal height low for dates 07/12/201203/2014 Supervision of normal 02/24/2012 01/28/2016 Overview: XX GBS (group B streptococcus) UTI complicating pre gnancy 02/24/2012 02/07/2014 Overview: 04/22 - MARINE negative - KK Abdominal pain, left lower quadrant 01/10/2010 02/24/2012 Supervision of normal first 11/08/2009 02/24/2012 documented as of this encounter (statuses as of 03/20/2022) [facility] of Past illness Narrative* Problem Noted Date Resolved Date Post thyroiditis 06/15/2017 09/24/20 18 Vocal cord anomaly 02/07/2014 01/28/2016 Overview: 02/07/2014She states she was diagnosed with paradoxical vocal cord dysfunction by [facility] at age 11. She uses an Albuterol Inhaler PRN.TKRN History of stomach ulcers 02/07/20142013 Overview: 02/07/2014.She was treated for a stomach ulcer when she was in high school. TKRN Nausea/vomiting in 02/07/2014 Overview: 02/07/2014Patient is complaining of nausea in . She denies any vomiting. She wishes to try vitamin B6 100 mg daily. Advised patient to call/come in if she is unable to keep any food or fluids down in a 24-hour period. TKRN Group B streptococcal infect ion in child of prior , currently 02/07/2014 01/28/2016 Overview: 02/07/2014Patient states that her previous baby was hospitalized for approximately 3 weeks on and off beginning at age 5 weeks for positive group B strep infection. Nata Small BSN RN Fundal height low for dates 07/12/201203/2014 Supervision of normal 02/24/2012 01/28/2016 Overview: XX GBS (group B streptococcus) UTI complicating pre gnancy 02/24/2012 02/07/2014 Overview: 04/22 - MARINE negative - KK Abdominal pain, left lower quadrant 01/10/2010 02/24/2012 Supervision of normal first 11/08/2009 02/24/2012 documented as of this encounter (statuses as of 03/20/2022) [facility] Narrative* Problem Noted Date Resolved Date Post thyroiditis 06/15/2017 09/24/20 18 Vocal cord anomaly 02/07/2014 01/28/2016 Overview: 02/07/2014She states she was diagnosed with paradoxical vocal cord dysfunction by [facility] at age 11. She uses an Albuterol Inhaler PRN.TKRN History of stomach ulcers 02/07/20142013 Overview: 02/07/2014.She was treated for a stomach ulcer when she was in high school. TKRN Nausea/vomiting in 02/07/2014 Overview: 02/07/2014Patient is complaining of nausea in . She denies any vomiting. She wishes to try vitamin B6 100 mg daily. Advised patient to call/come in if she is unable to keep any food or fluids down in a 24-hour period. TKRN Group B streptococcal infect ion in child of prior , currently 02/07/2014 01/28/2016 Overview: 02/07/2014Patient states that her previous baby was hospitalized for approximately 3 weeks on and off beginning at age 5 weeks for positive group B strep infection. 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 She uses an Albuterol Inhaler PRN.TKRN History of stomach ulcers 02/07/20142013 Overview: 02/07/2014.She was treated for a stomach ulcer when she was in high school. TKRN Nausea/vomiting in 02/07/2014 Overview: 02/07/2014Patient is complaining of nausea in . She denies any vomiting. She wishes to try vitamin B6 100 mg daily. Advised patient to call/come in if she is unable to keep any food or fluids down in a 24-hour period. TKRN Group B streptococcal infect ion in child of prior , currently 02/07/2014 01/28/2016 Overview: 02/07/2014Patient states that her previous baby was hospitalized for approximately 3 weeks on and off beginning at age 5 weeks for positive group B strep infection. 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 She uses an Albuterol Inhaler PRN.TKRN History of stomach ulcers 02/07/20142013 Overview: 02/07/2014.She was treated for a stomach ulcer when she was in high school. TKRN Nausea/vomiting in 02/07/2014 Overview: 02/07/2014Patient is complaining of nausea in . She denies any vomiting. She wishes to try vitamin B6 100 mg daily. Advised patient to call/come in if she is unable to keep any food or fluids down in a 24-hour period. TKRN Group B streptococcal infect ion in child of prior , currently 02/07/2014 01/28/2016 Overview: 02/07/2014Patient states that her previous baby was hospitalized for approximately 3 weeks on and off beginning at age 5 weeks for positive group B strep infection. 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 She uses an Albuterol Inhaler PRN.TKRN History of stomach ulcers 02/07/20142013 Overview: 02/07/2014.She was treated for a stomach ulcer when she was in high school. TKRN Nausea/vomiting in 02/07/2014 Overview: 02/07/2014Patient is complaining of nausea in . She denies any vomiting. She wishes to try vitamin B6 100 mg daily. Advised patient to call/come in if she is unable to keep any food or fluids down in a 24-hour period. TKRN Group B streptococcal infect ion in child of prior , currently 02/07/2014 01/28/2016 Overview: 02/07/2014Patient states that her previous baby was hospitalized for approximately 3 weeks on and off beginning at age 5 weeks for positive group B strep infection. 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 She uses an Albuterol Inhaler PRN.TKRN History of stomach ulcers 02/07/20142013 Overview: 02/07/2014.She was treated for a stomach ulcer when she was in high school. TKRN Nausea/vomiting in 02/07/2014 Overview: 02/07/2014Patient is complaining of nausea in . She denies any vomiting. She wishes to try vitamin B6 100 mg daily. Advised patient to call/come in if she is unable to keep any food or fluids down in a 24-hour period. TKRN Group B streptococcal infect ion in child of prior , currently 02/07/2014 01/28/2016 Overview: 02/07/2014Patient states that her previous baby was hospitalized for approximately 3 weeks on and off beginning at age 5 weeks for positive group B strep infection. Nata Small BSN RN Fundal height low for dates 07/12/201203/2014 Supervision of normal 02/24/2012 01/28/2016 Overview: XX GBS (group B streptococcus) UTI complicating pre gnancy 02/24/2012 02/07/2014 Overview: 04/22 - MARINE negative - KK Abdominal pain, left lower quadrant 01/10/2010 02/24/2012 Supervision of normal first 11/08/2009 02/24/2012 documented as of this encounter (statuses as of 04/04/2022) [facility] Diagnosis 24 weeks gestation of - Primary state, incidental Supervision of high risk in second trimester Unspecified high-risk GBS bacteriuria [facility] Hypothyroidism, unspecified type- Primary 25 weeks gestation of state, incidental [facility] Diagnosis 28 weeks gestation of - Primary state, incidental Encounter for supervision of other normal in third trimester Abnormal maternal glucose tolerance, antepartum [facility] Diagnosis 28 weeks gestation of - Primary state, incidental Supervision of high risk in third trimester Unspecified high-risk [facility] Diagnosis Microcytic anemia- Primary Iron deficiency anemia, unspecified documented in this [facility] 30 weeks gestation of - Primary state, incidental [facility] Diagnosis Benign gestational thrombocytopenia in third trimester (HCC) [facility] Diagnosis Iron deficiency anemia secondary to inadequate dietary iron intake- Primary Iron deficiency anemia during Iron malabsorption Other specified intestinal malabsorption [facility] Diagnosis Iron deficiency anemia secondary to inadequate dietary iron intake- Primary Iron deficiency anemia during Iron malabsorption Other specified intestinal malabsorption [facility] Diagnosis Supervision of high risk in third trimester- Primary Unspecified high-risk 30 weeks gestation of state, incidental [facility] Diagnosis Onset Date Resolution Status 31 weeks gestation of acute Headache acute Multigravida in third trimester acute [facility] Work Phone: Evaluation note* Diagnosis Iron deficiency anemia secondary to inadequate dietary iron intake- Primary Iron deficiency anemia during Iron malabsorption Other specified intestinal malabsorption [facility] Diagnosis Iron deficiency anemia secondary to inadequate dietary iron intake- Primary Iron deficiency anemia during Iron malabsorption Other specified intestinal malabsorption [facility] Iron deficiency anemia secondary to inadequate dietary iron intake- Primary Iron deficiency anemia during Iron malabsorption Other specified intestinal malabsorption [facility] Diagnosis Suspected problem with growth not found- Primary 32 weeks gestation of state, incidental [facility] Diagnosis Iron deficiency anemia secondary to inadequate dietary iron intake- Primary Iron deficiency anemia during Iron malabsorption Other specified intestinal malabsorption [facility] Diagnosis 32 weeks gestation of - Primary state, incidental Supervision of high risk in third trimester Unspecified high-risk History of blood clots Personal history of venous thrombosis and embolism [facility] Diagnosis PE (pulmonary thromboembolism) (HCC)- Primary Other pulmonary embolism and infarction [facility] Diagnosis Iron deficiency anemia secondary to inadequate dietary iron intake- Primary Iron deficiency anemia during Iron malabsorption Other specified intestinal malabsorption [facility] Diagnosis Hypothyroidism, unspecified type 25 weeks gestation of state, incidental [facility] Diagnosis Iron deficiency anemia secondary to inadequate dietary iron intake- Primary Iron deficiency anemia during Iron malabsorption Other specified intestinal malabsorption [facility] Diagnosis 34 weeks gestation of - Primary state, incidental Supervision of high risk in third trimester Unspecified high-risk Hypothyroidism, unspecified type [facility] Diagnosis PE (pulmonary thromboembolism) (HCC)- Primary Other pulmonary embolism and infarction [facility] Diagnosis Iron deficiency anemia during - Primary Anemia during in third trimester PE (pulmonary thromboembolism) (HCC) Other pulmonary embolism and infarction [facility] Diagnosis Hypothyroidism, unspecified type 25 weeks gestation of state, incidental [facility] Diagnosis Supervision of high risk in third trimester- Primary Unspecified high-risk 35 weeks gestation of state, incidental [facility] Diagnosis 36 weeks gestation of - Primary state, incidental Supervision of high risk in third trimester Unspecified high-risk [facility] Diagnosis 37 weeks gestation of - Primary state, incidental Supervision of high risk in third trimester Unspecified high-risk History of pulmonary embolism Personal history of pulmonary embolism [facility] Diagnosis state- Primary Routine follow-up Hypothyroidism, unspecified type History of maternal deep vein thrombosis (DVT) [facility] Diagnosis care and examination- Primary Routine follow-up Malaise and fatigue Other malaise and fatigue History of anemia Personal history of diseases of blood and blood-forming organs History of hypothyroidism Personal history of other endocrine, metabolic, and immunity disorders [facility] Diagnosis Hypothyroidism, unspecified type 25 weeks gestation of state, incidental [facility]* Diagnosis Vaginal irritation- Primary Unspecified noninflammatory disorder of vagina [facility]* Diagnosis Hypothyroidism, unspecified type- Primary [facility]* Diagnosis Hypothyroidism, unspecified type [facility]* Diagnosis Hypothyroidism, unspecified type [facility] Diagnosis Iron deficiency anemia secondary to inadequate dietary iron intake- Primary [facility] Diagnosis Hx maternal GBS (group B streptococcus) affected , - Primary with other poor obstetric history [facility]* Diagnosis Hypothyroidism, unspecified type [facility]* Diagnosis Well adult exam- Primary Routine general medical examination at a health care facility Encounter for lipid screening for cardiovascular disease Screening for lipoid disorders TRUDI (generalized anxiety disorder) Generalized anxiety disorder Anemia during in third trimester Acquired hypothyroidism Unspecified hypothyroidism Hypokalemia Hypopotassemia Situational stress Other psychological or physical stress, not elsewhere classified Hypothyroidism, unspecified type [facility] Diagnosis Acquired hypothyroidism- Primary Unspecified hypothyroidism Hypokalemia Hypopotassemia TRUDI (generalized anxiety disorder) Generalized anxiety disorder Iron deficiency anemia secondary to inadequate dietary iron intake [facility]* Diagnosis PE (pulmonary thromboembolism) (HCC)- Primary Other pulmonary embolism and infarction Iron deficiency anemia during Pain of both eyes Pain in or around eye [facility] Hypothyroidism, unspecified type [facility] Diagnosis Dry eyes, bilateral- Primary Tear film insufficiency, unspecified Pain of both eyes Pain in or around eye Regular astigmatism, bilateral [facility] Diagnosis Situational stress- Primary Other psychological or physical stress, not elsewhere classified Paradoxical vocal cord motion disorder Other diseases of vocal cords Allergic reaction, subsequent encounter [facility] Diagnosis Adverse reaction to food, subsequent encounter- Primary Throat tightness Other symptoms involving head and neck Vocal cord dysfunction Other diseases of vocal cords 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 Shortness of breath Latex allergy Allergy to latex [facility] Diagnosis Low serum complement C4- Primary Abnormal laboratory test result Other abnormal clinical finding [facility] Diagnosis Acquired hypothyroidism- Primary Unspecified hypothyroidism Hypothyroidism, unspecified type Iron deficiency anemia secondary to inadequate dietary iron intake Iron deficiency anemia during TRUDI (generalized anxiety disorder) Generalized anxiety disorder SANDOVAL (dyspnea on exertion) Other dyspnea and respiratory abnormality [facility] Diagnosis SANDOVAL (dyspnea on exertion)- Primary Other dyspnea and respiratory abnormality [facility] Diagnosis Palpitations- Primary Acquired hypothyroidism Unspecified hypothyroidism [facility] Diagnosis Acute deep vein thrombosis (DVT) of proximal vein of left lower extremity (HCC)- Primary Acute deep vein thrombosis (DVT) of axillary vein of left upper extremity (HCC) Acquired hypothyroidism Unspecified hypothyroidism [facility] Diagnosis Acute deep vein thrombosis (DVT) of axillary vein of left upper extremity (HCC)- Primary Hematoma Contusion of unspecified site History of pulmonary embolism Personal history of pulmonary embolism [facility] Diagnosis Acquired hypothyroidism- Primary Unspecified hypothyroidism [facility] Diagnosis Acute deep vein thrombosis (DVT) of axillary vein of left upper extremity (HCC)- Primary History of pulmonary embolism Personal history of pulmonary embolism [facility] Diagnosis Chronic deep vein thrombosis (DVT) of other vein of upper extremity, unspecified laterality (HCC)- Primary [facility] Diagnosis Personal history of DVT (deep vein thrombosis)- Primary Personal history of venous thrombosis and embolism Thoracic outlet syndrome Brachial plexus lesions [facility]* Diagnosis Thoracic outlet syndrome- Primary Brachial plexus lesions Personal history of DVT (deep vein thrombosis) Personal history of venous thrombosis and embolism [facility]* Diagnosis TOS (thoracic outlet syndrome)- Primary Brachial plexus lesions [facility]* Diagnosis Thoracic outlet syndrome Brachial plexus lesions [facility]* Diagnosis Deep vein thrombosis (DVT) of other vein of right upper extremity, unspecified chronicity (HCC)- Primary Chronic deep vein thrombosis (DVT) of other vein of left upper extremity (HCC) TOS (thoracic outlet syndrome) Brachial plexus lesions documented in this encounter [facility] note* Diagnosis Thoracic outlet syndrome- Primary Brachial plexus lesions TOS (thoracic outlet syndrome) Brachial plexus lesions documented in this encounter [facility] note* Diagnosis Thoracic outlet syndrome- Primary Brachial plexus lesions TOS (thoracic outlet syndrome) Brachial plexus lesions [facility]* Diagnosis Pre-operative examination- Primary Preoperative examination, unspecified Acquired hypothyroidism Unspecified hypothyroidism Hypokalemia Hypopotassemia Iron malabsorption Other specified intestinal malabsorption PE (pulmonary thromboembolism) (HCC) Other pulmonary embolism and infarction Chronic deep vein thrombosis (DVT) of other vein of left upper extremity (HCC) TRUDI (generalized anxiety disorder) Generalized anxiety disorder TOS (thoracic outlet syndrome) Brachial plexus lesions * Assessment & Plan Note - Moira Kenney APRN.CNP - 11/09/2024 9:35 AM EST Associated Problem(s): TRUDI (generalized anxiety disorder) Assessment: situational, no current tx * Assessment & Plan Note - Moira Kenney APRN.CNP - 11/09/2024 9:35 AM EST Associated Problem(s): Chronic deep vein thrombosis (DVT) of left upper extremity (HCC) Assessment: recent ED visit below following [facility] appt for arm pain, US showed no new progression, surgeon's office aware, see TE 11/07/2024, has f/u with surgeon Thursday11/11/2024 11/05/2024 Dr. Lai Patient presenting with concerns for worsening DVTs in her left upper extremity. DVT ultrasound wasordered to gauge progression of her known clots and to evaluate for new thrombus. Patient had good palpable pulses, cap refill under 2 seconds suggesting a well-perfused limb, I have low suspicion for ischemic limb. Ultrasound findings showed stable thrombus without significant progression. Patientis already established care with vascular surgery and has a scheduled venogram coming up on November 17. Rechecked her PT and PTT which suggest she is being adequately anticoagulated however as she is on Lovenox a more accurate assessment would have to be performed as an outpatient. As the patient has no new findings on her DVT ultrasound I feel the most appropriate plan of action is for her to follow-up closely with vascular surgery and to get her venogram later this month. * Assessment & Plan Note - Moira Kenney APRN.CNP - 11/09/2024 9:32 AM EST Associated Problem(s): PE (pulmonary thromboembolism) (HCC) Assessment: following hematology, daily Lovenox 10/31/2024 Dr. Quarles -History of PE which may have been provoked. -Heterozygous prothrombin gene mutation. -Developed left upper extremity DVT when off 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. -Now back on Lovenox after potential breakthrough thrombus on apixaban. -No longer breast-feeding. * Assessment & Plan Note - Moira Kenney APRN.CNP - 11/09/2024 9:25 AM EST Associated Problem(s): Iron malabsorption Assessment: hx, normal CBC 11/04/2024 * Assessment & Plan Note - Moira Kenney APRN.CNP - 11/09/2024 9:24 AM EST Associated Problem(s): Hypokalemia Assessment: on rx Potassium Date Value Ref Range Status 11/04/2024 4.2 3.7 - 5.1 mmol/L Final * Assessment & Plan Note - Moira Kenney APRN.CNP - 11/09/2024 9:24 AM EST Associated Problem(s): Acquired hypothyroidism Assessment: stable on rx, recent adjustment of thyroid medication due to recheck in 1 month, asymptomatic TSH Date Value Ref Range Status 10/12/2024 11.590 (H) 0.270 - 4.200 mIU/L Final Comment: If the patient is , TSH reference range varies by gestational period: First Trimester (weeks 9-12): 0.180-2.990 mIU/L Second Trimester: 0.110-3.980 mIU/L Third Trimester: 0.480-4.710 mIU/L Skyler Ozuna et al. A Practical Approach for the Verifications and Determination of Site- and Trimester-Specific Reference Intervals for Thyroid Function tests in . Thyroid, 2019:29:3:412-420.Dom Nichols, et al. 2017 Guidelines of the [place] Thyroid Association for the Diagnosis and Management of Thyroid Disease during and the . Thyroid, 2017:27:3:315-389. [facility]* Diagnosis Pre-operative examination- Primary Preoperative examination, unspecified Acquired hypothyroidism Unspecified hypothyroidism Hypokalemia Hypopotassemia Iron malabsorption Other specified intestinal malabsorption PE (pulmonary thromboembolism) (HCC) Other pulmonary embolism and infarction Chronic deep vein thrombosis (DVT) of other vein of left upper extremity (HCC) TRUDI (generalized anxiety disorder) Generalized anxiety disorder Thoracic outlet syndrome- Primary Brachial plexus lesions TOS (thoracic outlet syndrome) Brachial plexus lesions documented in this encounter [facility] note* Diagnosis Pre-operative examination- Primary Preoperative examination, unspecified Acquired hypothyroidism Unspecified hypothyroidism Hypokalemia Hypopotassemia Iron malabsorption Other specified intestinal malabsorption PE (pulmonary thromboembolism) (HCC) Other pulmonary embolism and infarction Chronic deep vein thrombosis (DVT) of other vein of left upper extremity (HCC) TRUDI (generalized anxiety disorder) Generalized anxiety disorder Thoracic outlet syndrome- Primary Brachial plexus lesions TOS (thoracic outlet syndrome) Brachial plexus lesions [facility]* Diagnosis Pre-operative examination- Primary Preoperative examination, unspecified Acquired hypothyroidism Unspecified hypothyroidism Hypokalemia Hypopotassemia Iron malabsorption Other specified intestinal malabsorption PE (pulmonary thromboembolism) (HCC) Other pulmonary embolism and infarction Chronic deep vein thrombosis (DVT) of other vein of left upper extremity (HCC) TRUDI (generalized anxiety disorder) Generalized anxiety disorder Injury of right foot, initial encounter- Primary documented in this encounter [facility] note* Diagnosis Pre-operative examination- Primary Preoperative examination, unspecified Acquired hypothyroidism Unspecified hypothyroidism Hypokalemia Hypopotassemia Iron malabsorption Other specified intestinal malabsorption PE (pulmonary thromboembolism) (HCC) Other pulmonary embolism and infarction Chronic deep vein thrombosis (DVT) of other vein of left upper extremity (HCC) TRUDI (generalized anxiety disorder) Generalized anxiety disorder Encounter for gynecological examination (general) (routine) without abnormal findings- Primary Screening for cervical cancer Screening for malignant neoplasm of the cervix Encounter for screening for human papillomavirus (HPV) Special screening examination for human papillomavirus (HPV) [facility] Diagnosis Pre-operative examination- Primary Preoperative examination, unspecified Acquired hypothyroidism Unspecified hypothyroidism Hypokalemia Hypopotassemia Iron malabsorption Other specified intestinal malabsorption PE (pulmonary thromboembolism) (HCC) Other pulmonary embolism and infarction Chronic deep vein thrombosis (DVT) of other vein of left upper extremity (HCC) TRUDI (generalized anxiety disorder) Generalized anxiety disorder Thoracic outlet syndrome- Primary Brachial plexus lesions Preop examination Preoperative examination, unspecified [facility]* Diagnosis Pre-operative examination- Primary Preoperative examination, unspecified Acquired hypothyroidism Unspecified hypothyroidism Hypokalemia Hypopotassemia Iron malabsorption (HCC) Other specified intestinal malabsorption PE (pulmonary thromboembolism) (HCC) Other pulmonary embolism and infarction Chronic deep vein thrombosis (DVT) of other vein of left upper extremity (HCC) TRUDI (generalized anxiety disorder) Generalized anxiety disorder Chronic deep vein thrombosis (DVT) of other vein of left upper extremity (HCC)- Primary Thoracic outlet syndrome Brachial plexus lesions [facility]* Diagnosis Pre-operative examination- Primary Preoperative examination, unspecified Acquired hypothyroidism Unspecified hypothyroidism Hypokalemia Hypopotassemia Iron malabsorption (HCC) Other specified intestinal malabsorption PE (pulmonary thromboembolism) (HCC) Other pulmonary embolism and infarction Chronic deep vein thrombosis (DVT) of other vein of left upper extremity (HCC) TRUDI (generalized anxiety disorder) Generalized anxiety disorder TOS (thoracic outlet syndrome)- Primary Brachial plexus lesions [facility]* Diagnosis Pre-operative examination- Primary Preoperative examination, unspecified Acquired hypothyroidism Unspecified hypothyroidism Hypokalemia Hypopotassemia Iron malabsorption (HCC) Other specified intestinal malabsorption PE (pulmonary thromboembolism) (HCC) Other pulmonary embolism and infarction Chronic deep vein thrombosis (DVT) of other vein of left upper extremity (HCC) TRUDI (generalized anxiety disorder) Generalized anxiety disorder Acquired hypothyroidism- Primary Unspecified hypothyroidism TOS (thoracic outlet syndrome) Brachial plexus lesions Chronic deep vein thrombosis (DVT) of other vein of left upper extremity (HCC) Situational stress Other psychological or physical stress, not elsewhere classified Current use of assisted 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 Long-term (current) use of anticoagulants History of pulmonary embolus (PE) Personal history of pulmonary embolism 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 documented in this encounter [facility] note* Diagnosis Pre-operative examination- Primary Preoperative examination, unspecified Acquired hypothyroidism Unspecified hypothyroidism Hypokalemia Hypopotassemia Iron malabsorption (HCC) Other specified intestinal malabsorption PE (pulmonary thromboembolism) (HCC) Other pulmonary embolism and infarction Chronic deep vein thrombosis (DVT) of other vein of left upper extremity (HCC) TRUDI (generalized anxiety disorder) Generalized anxiety disorder Acute blood loss anemia- Primary Acute posthemorrhagic anemia [facility]* Diagnosis Pre-operative examination- Primary Preoperative examination, unspecified Acquired hypothyroidism Unspecified hypothyroidism Hypokalemia Hypopotassemia Iron malabsorption (HCC) Other specified intestinal malabsorption PE (pulmonary thromboembolism) (HCC) Other pulmonary embolism and infarction Chronic deep vein thrombosis (DVT) of other vein of left upper extremity (HCC) TRUDI (generalized anxiety disorder) Generalized anxiety disorder TOS (thoracic outlet syndrome)- Primary Brachial plexus lesions [facility]* Diagnosis Pre-operative examination- Primary Preoperative examination, unspecified Acquired hypothyroidism Unspecified hypothyroidism Hypokalemia Hypopotassemia Iron malabsorption (HCC) Other specified intestinal malabsorption PE (pulmonary thromboembolism) (HCC) Other pulmonary embolism and infarction Chronic deep vein thrombosis (DVT) of other vein of left upper extremity (HCC) TRUDI (generalized anxiety disorder) Generalized anxiety disorder Thoracic outlet syndrome- Primary Brachial plexus lesions TOS (thoracic outlet syndrome) Brachial plexus lesions [facility]* Diagnosis Pre-operative examination- Primary Preoperative examination, unspecified Acquired hypothyroidism Unspecified hypothyroidism Hypokalemia Hypopotassemia Iron malabsorption (HCC) Other specified intestinal malabsorption PE (pulmonary thromboembolism) (HCC) Other pulmonary embolism and infarction Chronic deep vein thrombosis (DVT) of other vein of left upper extremity (HCC) TRUDI (generalized anxiety disorder) Generalized anxiety disorder Post-op pain- Primary Other acute postoperative pain [facility]* Diagnosis Pre-operative examination- Primary Preoperative examination, unspecified Acquired hypothyroidism Unspecified hypothyroidism Hypokalemia Hypopotassemia Iron malabsorption (HCC) Other specified intestinal malabsorption PE (pulmonary thromboembolism) (HCC) Other pulmonary embolism and infarction Chronic deep vein thrombosis (DVT) of other vein of left upper extremity (HCC) TRUDI (generalized anxiety disorder) Generalized anxiety disorder Chest pain, unspecified type- Primary Chest pain, unspecified type [facility] Diagnosis Pre-operative examination- Primary Preoperative examination, unspecified Acquired hypothyroidism Unspecified hypothyroidism Hypokalemia Hypopotassemia Iron malabsorption (HCC) Other specified intestinal malabsorption PE (pulmonary thromboembolism) (HCC) Other pulmonary embolism and infarction Chronic deep vein thrombosis (DVT) of other vein of left upper extremity (HCC) TRUDI (generalized anxiety disorder) Generalized anxiety disorder Chest pain, unspecified type [facility] Diagnosis Pre-operative examination- Primary Preoperative examination, unspecified Acquired hypothyroidism Unspecified hypothyroidism Hypokalemia Hypopotassemia Iron malabsorption (HCC) Other specified intestinal malabsorption PE (pulmonary thromboembolism) (HCC) Other pulmonary embolism and infarction Chronic deep vein thrombosis (DVT) of other vein of left upper extremity (HCC) TRUDI (generalized anxiety disorder) Generalized anxiety disorder Thoracic outlet syndrome- Primary Brachial plexus lesions Personal history of DVT (deep vein thrombosis) Personal history of venous thrombosis and embolism Acute blood loss anemia Acute posthemorrhagic anemia [facility] Diagnosis Pre-operative examination- Primary Preoperative examination, unspecified Acquired hypothyroidism Unspecified hypothyroidism Hypokalemia Hypopotassemia Iron malabsorption (HCC) Other specified intestinal malabsorption PE (pulmonary thromboembolism) (HCC) Other pulmonary embolism and infarction Chronic deep vein thrombosis (DVT) of other vein of left upper extremity (HCC) TRUDI (generalized anxiety disorder) Generalized anxiety disorder TOS (thoracic outlet syndrome) Brachial plexus lesions Hematoma Contusion of unspecified site [facility] Diagnosis Pre-operative examination- Primary Preoperative examination, unspecified Acquired hypothyroidism Unspecified hypothyroidism Hypokalemia Hypopotassemia Iron malabsorption (HCC) Other specified intestinal malabsorption PE (pulmonary thromboembolism) (HCC) Other pulmonary embolism and infarction Chronic deep vein thrombosis (DVT) of other vein of left upper extremity (HCC) TRUDI (generalized anxiety disorder) Generalized anxiety disorder TOS (thoracic outlet syndrome)- Primary Brachial plexus lesions Hematoma Contusion of unspecified site Thoracic outlet syndrome Brachial plexus lesions TOS (thoracic outlet syndrome) Brachial plexus lesions Hematoma Contusion of unspecified site [facility] Diagnosis Pre-operative examination- Primary Preoperative examination, unspecified Acquired hypothyroidism Unspecified hypothyroidism Hypokalemia Hypopotassemia Iron malabsorption (HCC) Other specified intestinal malabsorption PE (pulmonary thromboembolism) (HCC) Other pulmonary embolism and infarction Chronic deep vein thrombosis (DVT) of other vein of left upper extremity (HCC) TRUDI (generalized anxiety disorder) Generalized anxiety disorder TOS (thoracic outlet syndrome)- Primary Brachial plexus lesions Thoracic outlet syndrome Brachial plexus lesions [facility] Diagnosis Pre-operative examination- Primary Preoperative examination, unspecified Acquired hypothyroidism Unspecified hypothyroidism Hypokalemia Hypopotassemia Iron malabsorption (HCC) Other specified intestinal malabsorption PE (pulmonary thromboembolism) (HCC) Other pulmonary embolism and infarction Chronic deep vein thrombosis (DVT) of other vein of left upper extremity (HCC) TRUDI (generalized anxiety disorder) Generalized anxiety disorder TOS (thoracic outlet syndrome)- Primary Brachial plexus lesions Thoracic outlet syndrome Brachial plexus lesions [facility] Diagnosis Pre-operative examination- Primary Preoperative examination, unspecified Acquired hypothyroidism Unspecified hypothyroidism Hypokalemia Hypopotassemia Iron malabsorption (HCC) Other specified intestinal malabsorption PE (pulmonary thromboembolism) (HCC) Other pulmonary embolism and infarction Chronic deep vein thrombosis (DVT) of other vein of left upper extremity (HCC) TRUDI (generalized anxiety disorder) Generalized anxiety disorder Thoracic outlet syndrome- Primary Brachial plexus lesions Personal history of DVT (deep vein thrombosis) Personal history of venous thrombosis and embolism [facility] Diagnosis Pre-operative examination- Primary Preoperative examination, unspecified Acquired hypothyroidism Unspecified hypothyroidism Hypokalemia Hypopotassemia Iron malabsorption (HCC) Other specified intestinal malabsorption PE (pulmonary thromboembolism) (HCC) Other pulmonary embolism and infarction Chronic deep vein thrombosis (DVT) of other vein of left upper extremity (HCC) TRUDI (generalized anxiety disorder) Generalized anxiety disorder TOS (thoracic outlet syndrome)- Primary Brachial plexus lesions Thoracic outlet syndrome Brachial plexus lesions [facility] Diagnosis Pre-operative examination- Primary Preoperative examination, unspecified Acquired hypothyroidism Unspecified hypothyroidism Hypokalemia Hypopotassemia Iron malabsorption (HCC) Other specified intestinal malabsorption PE (pulmonary thromboembolism) (HCC) Other pulmonary embolism and infarction Chronic deep vein thrombosis (DVT) of other vein of left upper extremity (HCC) TRUDI (generalized anxiety disorder) Generalized anxiety disorder Personal history of DVT (deep vein thrombosis)- Primary Personal history of venous thrombosis and embolism Thoracic outlet syndrome Brachial plexus lesions [facility] Diagnosis Pre-operative examination- Primary Preoperative examination, unspecified Acquired hypothyroidism Unspecified hypothyroidism Hypokalemia Hypopotassemia Iron malabsorption (HCC) Other specified intestinal malabsorption PE (pulmonary thromboembolism) (HCC) Other pulmonary embolism and infarction Chronic deep vein thrombosis (DVT) of other vein of left upper extremity (HCC) TRUDI (generalized anxiety disorder) Generalized anxiety disorder Acquired hypothyroidism- Primary Unspecified hypothyroidism TOS (thoracic outlet syndrome) Brachial plexus lesions Current use of assisted 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 Long-term (current) use of anticoagulants History of pulmonary embolus (PE) Personal history of pulmonary embolism [facility] Diagnosis Pre-operative examination- Primary Preoperative examination, unspecified Acquired hypothyroidism Unspecified hypothyroidism Hypokalemia Hypopotassemia Iron malabsorption (HCC) Other specified intestinal malabsorption PE (pulmonary thromboembolism) (HCC) Other pulmonary embolism and infarction Chronic deep vein thrombosis (DVT) of other vein of left upper extremity (HCC) TRUDI (generalized anxiety disorder) Generalized anxiety disorder TOS (thoracic outlet syndrome)- Primary Brachial plexus lesions Thoracic outlet syndrome Brachial plexus lesions documented in this encounter [facility] note* Diagnosis Pre-operative examination- Primary Preoperative examination, unspecified Acquired hypothyroidism Unspecified hypothyroidism Hypokalemia Hypopotassemia Iron malabsorption (HCC) Other specified intestinal malabsorption PE (pulmonary thromboembolism) (HCC) Other pulmonary embolism and infarction Chronic deep vein thrombosis (DVT) of other vein of left upper extremity (HCC) TRUDI (generalized anxiety disorder) Generalized anxiety disorder TOS (thoracic outlet syndrome)- Primary Brachial plexus lesions Thoracic outlet syndrome Brachial plexus lesions [facility] Diagnosis Pre-operative examination- Primary Preoperative examination, unspecified Acquired hypothyroidism Unspecified hypothyroidism Hypokalemia Hypopotassemia Iron malabsorption (HCC) Other specified intestinal malabsorption PE (pulmonary thromboembolism) (HCC) Other pulmonary embolism and infarction Chronic deep vein thrombosis (DVT) of other vein of left upper extremity (HCC) TRUDI (generalized anxiety disorder) Generalized anxiety disorder Iron deficiency anemia during (HCC)- Primary Iron deficiency anemia secondary to inadequate dietary iron intake Iron malabsorption (HCC) Other specified intestinal malabsorption [facility] Diagnosis Pre-operative examination- Primary Preoperative examination, unspecified Acquired hypothyroidism Unspecified hypothyroidism Hypokalemia Hypopotassemia Iron malabsorption (HCC) Other specified intestinal malabsorption PE (pulmonary thromboembolism) (HCC) Other pulmonary embolism and infarction Chronic deep vein thrombosis (DVT) of other vein of left upper extremity (HCC) TRUDI (generalized anxiety disorder) Generalized anxiety disorder TOS (thoracic outlet syndrome)- Primary Brachial plexus lesions Thoracic outlet syndrome Brachial plexus lesions [facility]* Diagnosis Pre-operative examination- Primary Preoperative examination, unspecified Acquired hypothyroidism Unspecified hypothyroidism Hypokalemia Hypopotassemia Iron malabsorption (HCC) Other specified intestinal malabsorption PE (pulmonary thromboembolism) (HCC) Other pulmonary embolism and infarction Chronic deep vein thrombosis (DVT) of other vein of left upper extremity (HCC) TRUDI (generalized anxiety disorder) Generalized anxiety disorder TOS (thoracic outlet syndrome) Brachial plexus lesions [facility]* Diagnosis Pre-operative examination- Primary Preoperative examination, unspecified Acquired hypothyroidism Unspecified hypothyroidism Hypokalemia Hypopotassemia Iron malabsorption (HCC) Other specified intestinal malabsorption PE (pulmonary thromboembolism) (HCC) Other pulmonary embolism and infarction Chronic deep vein thrombosis (DVT) of other vein of left upper extremity (HCC) TRUDI (generalized anxiety disorder) Generalized anxiety disorder Iron deficiency anemia during (HCC)- Primary Iron deficiency anemia secondary to inadequate dietary iron intake Iron malabsorption (HCC) Other specified intestinal malabsorption documented [facility]* Diagnosis Pre-operative examination- Primary Preoperative examination, unspecified Acquired hypothyroidism Unspecified hypothyroidism Hypokalemia Hypopotassemia Iron malabsorption (HCC) Other specified intestinal malabsorption PE (pulmonary thromboembolism) (HCC) Other pulmonary embolism and infarction Chronic deep vein thrombosis (DVT) of other vein of left upper extremity (HCC) TRUDI (generalized anxiety disorder) Generalized anxiety disorder Iron deficiency anemia, unspecified iron deficiency anemia type- Primary History of pulmonary embolism Personal history of pulmonary embolism [facility]* Diagnosis Pre-operative examination- Primary Preoperative examination, unspecified Acquired hypothyroidism Unspecified hypothyroidism Hypokalemia Hypopotassemia Iron malabsorption (HCC) Other specified intestinal malabsorption PE (pulmonary thromboembolism) (HCC) Other pulmonary embolism and infarction Chronic deep vein thrombosis (DVT) of other vein of left upper extremity (HCC) TRUDI (generalized anxiety disorder) Generalized anxiety disorder B12 deficiency- Primary Other B-complex deficiencies [facility]* Diagnosis Pre-operative examination- Primary Preoperative examination, unspecified Acquired hypothyroidism Unspecified hypothyroidism Hypokalemia Hypopotassemia Iron malabsorption (HCC) Other specified intestinal malabsorption PE (pulmonary thromboembolism) (HCC) Other pulmonary embolism and infarction Chronic deep vein thrombosis (DVT) of other vein of left upper extremity (HCC) TRUDI (generalized anxiety disorder) Generalized anxiety disorder TOS (thoracic outlet syndrome)- Primary Brachial plexus lesions retirement (current) use of anticoagulants Long-term (current) use of anticoagulants [facility]* Diagnosis Pre-operative examination- Primary Preoperative examination, unspecified Acquired hypothyroidism Unspecified hypothyroidism Hypokalemia Hypopotassemia Iron malabsorption (HCC) Other specified intestinal malabsorption PE (pulmonary thromboembolism) (HCC) Other pulmonary embolism and infarction Chronic deep vein thrombosis (DVT) of other vein of left upper extremity (HCC) TRUDI (generalized anxiety disorder) Generalized anxiety disorder TOS (thoracic outlet syndrome)- Primary Brachial plexus lesions Thoracic outlet syndrome Brachial plexus lesions [facility]* Diagnosis Pre-operative examination- Primary Preoperative examination, unspecified Acquired hypothyroidism Unspecified hypothyroidism Hypokalemia Hypopotassemia Iron malabsorption (HCC) Other specified intestinal malabsorption PE (pulmonary thromboembolism) (HCC) Other pulmonary embolism and infarction Chronic deep vein thrombosis (DVT) of other vein of left upper extremity (HCC) TRUDI (generalized anxiety disorder) Generalized anxiety disorder Iron deficiency anemia during (HCC)- Primary Iron deficiency anemia secondary to inadequate dietary iron intake Iron malabsorption (HCC) Other specified intestinal malabsorption [facility] Additional Instructions Drink caffeine, rest and take tylenol to help with MAR. If symptoms worsen call the office at that time.[facility] Work Phone: [facility] Phone: Reason for referral (narrative)* Diagnostic Procedure Only (Routine) - Pending Review Specialty Diagnoses / Procedures Referred By Fish israel Referred To Contact [facility] Diagnoses 28 weeks gestation of Encounter for supervision of other normal in third trimester Procedures OBSTETRIC ULTRASOUND WHI US PREG UTERUS AFTER 1ST TRIMEST GESTATION Allie Rome MD [address] [place] [address] [facility] [address], [place] [address] Referral ID Status Reason Start Date Expiration Date Visits Requested Visits Authorized [id number] Pending Review Auto-Generat ed Referral 02/05/2022 02/05/2023 1 1 T [facility] for referral (narrative)* Outpatient Procedure (Routine) - New Request Specialty Diagnoses / Procedures Referred By Fish israel Referred To Contact [facility] Diagnoses SANDOVAL (dyspnea on exertion) Procedures ECHO ECHO TTHRC R-T 2D W/WOM-MODE COMPL SPEC&COLR D Mini Crystal PA-C [address] [place] [address] [place] [address] [place] [address] Referral ID Status Reason Start Date Expiration Date Visits Requested Visits Authorized [id number] New Request Auto-Generat ed Referral 05/10/2024 05/10/2025 1 1 T [facility] for referral (narrative)* Outpatient Procedure (Routine) - Pending Review Specialty Diagnoses / Procedures Referred By Contac t Referred To Contact [facility] Diagnoses SANDOVAL (dyspnea on exertion) Procedures ECHO ECHO TTHRC R-T 2D W/WOM-MODE COMPL SPEC&COLR D Mini Crystal PA-C [address] [place] [address] [address] Referral ID Status Reason Start Date Expiration Date Visits Requested Visits Authorized [id number] Pending Review Auto-Generat ed Referral 05/13/2024 05/13/2025 1 1 [facility] for referral (narrative)* Outpatient Procedure (Routine) - New Request Specialty Diagnoses / Procedures Referred By Contac t Referred To Contact [facility] Diagnoses Palpitations Procedures ECG COMPLETE ECG ROUTINE ECG W/LEAST 12 LDS W/I&R Leora Balderas APRN.CNP [address] [place] [address] [address] Referral ID Status Reason Start Date Expiration Date Visits Requested Visits Authorized [id number] New Request Auto-Generat ed Referral 05/31/2024 05/31/2025 1 1 [facility] for referral (narrative)* Outpatient Procedure (Routine) - Pending Review Specialty Diagnoses / Procedures Referred By Contac t Referred To Contact [facility] Diagnoses Chronic deep vein thrombosis (DVT) of other vein of upper extremity, unspecified laterality (HCC) Procedures US ARM VEIN DVT UNL VAS LAB DUP-SCAN XTR VEINS UNILATERAL/LIMITED STUDY Jethro Waddell MD [address] [place] [address] [facility] [address] [address] Referral ID Status Reason Start Date Expiration Date Visits Requested Visits Authorized [id number] Pending Review Auto-Generat ed Referral 10/14/2024 10/14/2025 1 1 [facility] for referral (narrative)* Outpatient Procedure (Routine) - Pending Review Specialty Diagnoses / Procedures Referred By Contac t Referred To [facility] Diagnoses Thoracic outlet syndrome Procedures US ARM VEIN DVT UNL VAS LAB DUP-SCAN XTR VEINS UNILATERAL/LIMITED STUDY Nata Valle MD [address] [place] [address] [address] Referral ID Status Reason Start Date Expiration Date Visits Requested Visits Authorized [id number] Pending Review Auto-Generat ed Referral 10/17/2024 10/17/2025 1 1 * Outpatient Procedure (Routine) - Pending Review Specialty Diagnoses / Procedures Referred By Contac t Referred To [facility] Diagnoses Thoracic outlet syndrome Procedures US LEG VEIN DVT UNL VAS LAB DUP-SCAN XTR VEINS UNILATERAL/LIMITED STUDY Nata Valle MD [address] [place] [address] [address] Referral ID Status Reason Start Date Expiration Date Visits Requested Visits Authorized [id number] Pending Review Auto-Generat ed Referral 10/17/2024 10/17/2025 1 1 * Outpatient Procedure (Routine) - Pending Review Specialty Diagnoses / Procedures Referred By Contac t Referred To [facility] Diagnoses Thoracic outlet syndrome Procedures PVR THORACIC OUTLET SARA VAS LAB NON-INVASIVE PHYSIOLOGIC STUDY EXTREMITY 3 YISELLS Nata Valle MD [address] [place] [address] [address] Referral ID Status Reason Start Date Expiration Date Visits Requested Visits Authorized [id number] Pending Review Auto-Generat ed Referral 10/17/2024 10/17/2025 1 1 [facility] N[facility]* Financial Clearance (Routine) - Authorized Specialty Diagnoses / Procedures Referred By Contac t Referred To Contact Radiology / RADIO [facility] Diagnoses XR RM 9 Procedures XR GENERAL 7 Diane Mejia, SANITATION OFFICER.DIRECTOR OF PUBLICATIONS [address] [place] [address] Phone: tel: fax: Radiology [address] [place] [address] Phone: tel: fax: Referral ID Status Reason Start Date Expiration Date Visits Requested Visits Authorized [id number] Authorized Patient Cleared - Qualified 100% FAS 11/21/2024 02/19/2025 99 99 [facility] Advance Directives No Advanced Directives Records FoundDocuments on File Type Date Recorded Patient [employer] Expl anation Advance Directive(s) 01/27/2025 11:17 AM Date Activated Date Inactivated Comments 10/13/2024 5:23 AM 10/14/2024 9:13 PM Question Answer Comments Full Code Order Discussed With: Patient Date Activated Date Inactivated Comments 10/13/2024 5:23 AM 10/14/2024 9:13 PM Question Answer Comments Full Code Order Discussed With: Patient Documents on File Type Date Recorded Patient [employer] Expl anation Advance Directive(s) 10/31/2020 11:40 PM Advance Directive(s) 10/11/2020 12:06 PM Advance Directive(s) 08/31/2020 10:56 PM Advance Directive(s) 07/09/2020 1:01 AM Advance Directive(s) 06/19/2020 9:30 PM Advance Directive(s) 11/24/2019 8:03 PM Advance Directive(s) 08/22/2019 11:11 AM Advance Directive(s) 06/13/2019 7:56 PM Advance Directive(s) 05/17/2019 10:35 PM Advance Directive(s) 05/14/2019 2:21 PM Advance Directive(s) 06/06/2018 2:49 PM Documents on File Type Date Recorded Patient [employer] Expl anation Advance Directive(s) 10/31/2020 11:40 PM Advance Directive(s) 10/11/2020 12:06 PM Advance Directive(s) 08/31/2020 10:56 PM Advance Directive(s) 07/09/2020 1:01 AM Advance Directive(s) 06/19/2020 9:30 PM Advance Directive(s) 11/24/2019 8:03 PM Advance Directive(s) 08/22/2019 11:11 AM Advance Directive(s) 06/13/2019 7:56 PM Advance Directive(s) 05/17/2019 10:35 PM Advance Directive(s) 05/14/2019 2:21 PM Advance Directive(s) 06/06/2018 2:49 PM Advance Directive Response Recorded Date/ Time Advance Directives No September 11, 2016 9:07am Living Will No May 13, 2019 8:57am Power of Vacuum Evaporation Operator No May 13 8:57am Documents on File Type Date Recorded Patient [employer] Expl anation Advance Directive(s) 04/09/2022 9:53 PM Advance Directive(s) 10/31/2020 11:40 PM Advance Directive(s) 10/11/2020 12:06 PM Advance Directive(s) 08/31/2020 10:56 PM Advance Directive(s) 07/09/2020 1:01 AM Advance Directive(s) 06/19/2020 9:30 PM Advance Directive(s) 11/24/2019 8:03 PM Advance Directive(s) 08/22/2019 11:11 AM Advance Directive(s) 06/13/2019 7:56 PM Advance Directive(s) 05/17/2019 10:35 PM Advance Directive(s) 05/14/2019 2:21 PM Advance Directive(s) 06/06/2018 2:49 PM Date Activated Date Inactivated Comments 10/13/2024 5:23 AM Documents on File Type Date Recorded Patient [employer] Expl anation Advance Directive(s) 01/27/2025 11:17 AM Medications Administered Section Inactive Administered Medications - up to 3 most recent administrations Medication Order MAR Action Action Date Dose Rate Site iron sucrose 200 mg in NaCl 0.9% 100ml (VENOFER) 200 mg, INTRAVENOUS, at 400 mL/hr, Administer over 15 Minutes, ONCE, 1 dose, On Thu02/19/22 at 0830, Please conduct a 30 minute post dose observation. New Bag/Syringe/Bottle 02/19/2022 8:35 AM EDT 200 mg 400 mL/hr Inactive Administered Medications - up to 3 most recent administrations Medication Order MAR Action Action Date Dose Rate Site iron sucrose 200 mg in NaCl 0.9% 100ml (VENOFER) 200 mg, INTRAVENOUS, at 400 mL/hr, Administer over 15 Minutes, ONCE, 1 dose, On Thu02/21/22 at 0830, Please conduct a 30 minute post dose observation. New Bag/Syringe/Bottle 02/21/2022 8:21 AM EDT 200 mg 400 mL/hr Inactive Administered Medications - up to 3 most recent administrations Medication Order MAR Action Action Date Dose Rate Site iron sucrose 200 mg in NaCl 0.9% 100ml (VENOFER) 200 mg, INTRAVENOUS, at 400 mL/hr, Administer over 15 Minutes, ONCE, 1 dose, On Thu02/26/22 at 0830, Please conduct a 30 minute post dose observation. New Bag/Syringe/Bottle 02/26/2022 8:17 AM EDT 200 mg 400 mL/hr Inactive Administered Medications - up to 3 most recent administrations Medication Order MAR Action Action Date Dose Rate Site iron sucrose 200 mg in NaCl 0.9% 100ml (VENOFER) 200 mg, INTRAVENOUS, at 400 mL/hr, Administer over 15 Minutes, ONCE, 1 dose, On Thu02/28/22 at 0900, Please conduct a 30 minute post dose observation. New Bag/Syringe/Bottle 02/28/2022 8:51 AM EDT 200 mg 400 mL/hr Inactive Administered Medications - up to 3 most recent administrations Medication Order MAR Action Action Date Dose Rate Site iron sucrose 200 mg in NaCl 0.9% 100ml (VENOFER) 200 mg, INTRAVENOUS, at 400 mL/hr, Administer over 15 Minutes, ONCE, 1 dose, On Thu03/04/22 at 0900, Please conduct a 30 minute post dose observation. New Bag/Syringe/Bottle 03/04/2022 8:58 AM EDT 200 mg 400 mL/hr Inactive Administered Medications - up to 3 most recent administrations Medication Order MAR Action Action Date Dose Rate Site iron sucrose 200 mg in NaCl 0.9% 100ml (VENOFER) 200 mg, INTRAVENOUS, at 400 mL/hr, Administer over 15 Minutes, ONCE, 1 dose, On Thu03/06/22 at 0830, Please conduct a 30 minute post dose observation. New Bag/Syringe/Bottle 03/06/2022 8:21 AM EDT 200 mg 400 mL/hr Inactive Administered Medications - up to 3 most recent administrations Medication Order MAR Action Action Date Dose Rate Site iron sucrose 200 mg in NaCl 0.9% 100ml (VENOFER) 200 mg, INTRAVENOUS, at 400 mL/hr, Administer over 15 Minutes, ONCE, 1 dose, On Thu03/14/22 at 0830, Please conduct a 30 minute post dose observation. New Bag/Syringe/Bottle 03/14/2022 8:42 AM EDT 200 mg 400 mL/hr Inactive Administered Medications - up to 3 most recent administrations Medication Order MAR Action Action Date Dose Rate Site iron sucrose 200 mg in NaCl 0.9% 100ml (VENOFER) 200 mg, INTRAVENOUS, at 400 mL/hr, Administer over 15 Minutes, ONCE, 1 dose, On Thu03/19/22 at 1600, Please conduct a 30 minute post dose observation. New Bag/Syringe/Bottle 03/19/2022 3:48 PM EDT 200 mg 400 mL/hr Chief Complaint and Reason for Visit Chief Complaint ROLL OUT PRE-E Reason for Visit 31 weeks gestation o f Headache Multigravida in third trimester Chief Complaint ROLL OUT PRE-E R/O LABOR Reason for Visit 31 weeks gestation o f Headache Multigravida in third trimester Summary Purpose Family History No Family History Records FoundNo Family History Records FoundNo Family History Records FoundNo Family History Records FoundNo Family History Records FoundNo Family History Records Found Health Concerns Problem Noted Date Rn Field 04/11/2022 Problem Noted Date Rn Field 04/11/2022 Problem Noted Date Rn Field 04/11/2022 Problem Noted Date Rn Field 04/11/2022 Problem Noted Date Rn Field 04/11/2022 Problem Noted Date Rn Field 04/11/2022 Problem Noted Date Rn Field 04/11/2022 Problem Noted Date Rn Field 04/11/2022 Problem Noted Date Rn Field 04/11/2022 Problem Noted Date Diagnosed Date Rn Field 04/11/2022 Reason for Referral Specialty Diagnoses / Procedures Referred By [place] Referred To Contact Ophthalmology Diagnoses Pain of both eyes Procedures CONSULT TO OPHTHALMOLOGY OFFICE/OUTPATIENT NEW HIGH MDM 60 MINUTES Maria M Quarles, DO [address] [place] [address] Referral ID Status Reason Start Date Expiration Date Visits Requested Visits Authorized [id number] Authorized PCP Requested Referral 12/23/2023 12/22/2024 1 1 Specialty Diagnoses / Procedures Referred By Contac t Referred To Contact [facility] Diagnoses Vocal cord dysfunction Procedures CONSULT TO SPEECH THERAPY OFFICE/OUTPATIENT [facility] 60 MINUTES Cherry Lance MD [id number] [facility] [place] [address] Referral ID Status Reason Start Date Expiration Date Visits Requested Visits Authorized [id number] Pending Review Auto-Generat ed Referral 01/22/2024 01/21/2025 1 1 Specialty Diagnoses / Procedures Referred By Contac t Referred To Contact Vascular Surgery Diagnoses Thoracic outlet syndrome Procedures CONSULT TO VASCULAR SURGERY OFFICE/OUTPATIENT [facility] 60 MINUTES Nata Valle MD [address] [place] [address] Referral ID Status Reason Start Date Expiration Date Visits Requested Visits Authorized [id number] Authorized PCP Requested Referral 10/18/2024 10/18/2025 1 1 Additional Source Comments Source Comments (unrecognize d section and content) In the event this informatio n is protected by the Federal Confidentiality of Alcohol and Drug Abuse Patient Records regulations: The Federal rules restrict any use of the information to criminally investigate or prosecute any alcohol or drug abuse patient.[facility] the event this information is protected by the Federal Confidentiality of Alcohol and Drug Abuse Patient Records regulations: The Federal rules restrict any use of the information to criminally investigate or prosecute any alcohol or drug abuse patient.[facility] SystemIn the event this information is protected by the Federal Confidentiality of Alcohol and Drug Abuse Patient Records regulations: The Federal rules restrict any use of the information to criminally investigate or prosecute any alcohol or drug abuse patient.[facility] SystemIn the event this information is protected by the Federal Confidentiality of Alcohol and Drug Abuse Patient Records regulations: The Federal rules restrict any use of the information to criminally investigate or prosecute any alcohol or drug abuse patient.[facility] SystemIn the event this information is protected by the Federal Confidentiality of Alcohol and Drug Abuse Patient Records regulations: The Federal rules restrict any use of the information to criminally investigate or prosecute any alcohol or drug abuse patient.[facility] SystemIn the event this information is protected by the Federal Confidentiality of Alcohol and Drug Abuse Patient Records regulations: The Federal rules restrict any use of the information to criminally investigate or prosecute any alcohol or drug abuse patient.[facility] SystemIn the event this information is protected by the Federal Confidentiality of Alcohol and Drug Abuse Patient Records regulations: The Federal rules restrict any use of the information to criminally investigate or prosecute any alcohol or drug abuse patient.[facility] SystemIn the event this information is protected by the Federal Confidentiality of Alcohol and Drug Abuse Patient Records regulations: The Federal rules restrict any use of the information to criminally investigate or prosecute any alcohol or drug abuse patient.[facility] SystemIn the event this information is protected by the Federal Confidentiality of Alcohol and Drug Abuse Patient Records regulations: The Federal rules restrict any use of the information to criminally investigate or prosecute any alcohol or drug abuse patient.[facility] SystemIn the event this information is protected by the Federal Confidentiality of Alcohol and Drug Abuse Patient Records regulations: The Federal rules restrict any use of the information to criminally investigate or prosecute any alcohol or drug abuse patient.[facility] SystemIn the event this information is protected by the Federal Confidentiality of Alcohol and Drug Abuse Patient Records regulations: The Federal rules restrict any use of the information to criminally investigate or prosecute any alcohol or drug abuse patient.[facility] SystemIn the event this information is protected by the Federal Confidentiality of Alcohol and Drug Abuse Patient Records regulations: The Federal rules restrict any use of the information to criminally investigate or prosecute any alcohol or drug abuse patient.[facility] SystemIn the event this information is protected by the Federal Confidentiality of Alcohol and Drug Abuse Patient Records regulations: The Federal rules restrict any use of the information to criminally investigate or prosecute any alcohol or drug abuse patient.[facility] SystemIn the event this information is protected by the Federal Confidentiality of Alcohol and Drug Abuse Patient Records regulations: The Federal rules restrict any use of the information to criminally investigate or prosecute any alcohol or drug abuse patient.[facility] SystemIn the event this information is protected by the Federal Confidentiality of Alcohol and Drug Abuse Patient Records regulations: The Federal rules restrict any use of the information to criminally investigate or prosecute any alcohol or drug abuse patient.[facility] SystemIn the event this information is protected by the Federal Confidentiality of Alcohol and Drug Abuse Patient Records regulations: The Federal rules restrict any use of the information to criminally investigate or prosecute any alcohol or drug abuse patient.[facility] SystemIn the event this information is protected by the Federal Confidentiality of Alcohol and Drug Abuse Patient Records regulations: The Federal rules restrict any use of the information to criminally investigate or prosecute any alcohol or drug abuse patient.[facility] SystemIn the event this information is protected by the Federal Confidentiality of Alcohol and Drug Abuse Patient Records regulations: The Federal rules restrict any use of the information to criminally investigate or prosecute any alcohol or drug abuse patient.[facility] SystemIn the event this information is protected by the Federal Confidentiality of Alcohol and Drug Abuse Patient Records regulations: The Federal rules restrict any use of the information to criminally investigate or prosecute any alcohol or drug abuse patient.[facility] SystemIn the event this information is protected by the Federal Confidentiality of Alcohol and Drug Abuse Patient Records regulations: The Federal rules restrict any use of the information to criminally investigate or prosecute any alcohol or drug abuse patient.[facility] SystemIn the event this information is protected by the Federal Confidentiality of Alcohol and Drug Abuse Patient Records regulations: The Federal rules restrict any use of the information to criminally investigate or prosecute any alcohol or drug abuse patient.[facility] SystemIn the event this information is protected by the Federal Confidentiality of Alcohol and Drug Abuse Patient Records regulations: The Federal rules restrict any use of the information to criminally investigate or prosecute any alcohol or drug abuse patient.[facility] SystemIn the event this information is protected by the Federal Confidentiality of Alcohol and Drug Abuse Patient Records regulations: The Federal rules restrict any use of the information to criminally investigate or prosecute any alcohol or drug abuse patient.[facility] SystemIn the event this information is protected by the Federal Confidentiality of Alcohol and Drug Abuse Patient Records regulations: The Federal rules restrict any use of the information to criminally investigate or prosecute any alcohol or drug abuse patient.[facility] SystemIn the event this information is protected by the Federal Confidentiality of Alcohol and Drug Abuse Patient Records regulations: The Federal rules restrict any use of the information to criminally investigate or prosecute any alcohol or drug abuse patient.[facility] SystemIn the event this information is protected by the Federal Confidentiality of Alcohol and Drug Abuse Patient Records regulations: The Federal rules restrict any use of the information to criminally investigate or prosecute any alcohol or drug abuse patient.[facility] SystemIn the event this information is protected by the Federal Confidentiality of Alcohol and Drug Abuse Patient Records regulations: The Federal rules restrict any use of the information to criminally investigate or prosecute any alcohol or drug abuse patient.[facility] SystemIn the event this information is protected by the Federal Confidentiality of Alcohol and Drug Abuse Patient Records regulations: The Federal rules restrict any use of the information to criminally investigate or prosecute any alcohol or drug abuse patient.[facility] SystemIn the event this information is protected by the Federal Confidentiality of Alcohol and Drug Abuse Patient Records regulations: The Federal rules restrict any use of the information to criminally investigate or prosecute any alcohol or drug abuse patient.[facility] the event this information is protected by the Federal Confidentiality of Alcohol and Drug Abuse Patient Records regulations: The Federal rules restrict any use of the information to criminally investigate or prosecute any alcohol or drug abuse patient.[facility] SystemIn the event this information is protected by the Federal Confidentiality of Alcohol and Drug Abuse Patient Records regulations: The Federal rules restrict any use of the information to criminally investigate or prosecute any alcohol or drug abuse patient.[facility] SystemIn the event this information is protected by the Federal Confidentiality of Alcohol and Drug Abuse Patient Records regulations: The Federal rules restrict any use of the information to criminally investigate or prosecute any alcohol or drug abuse patient.[facility] SystemIn the event this information is protected by the Federal Confidentiality of Alcohol and Drug Abuse Patient Records regulations: The Federal rules restrict any use of the information to criminally investigate or prosecute any alcohol or drug abuse patient.[facility] SystemIn the event this information is protected by the Federal Confidentiality of Alcohol and Drug Abuse Patient Records regulations: The Federal rules restrict any use of the information to criminally investigate or prosecute any alcohol or drug abuse patient.[facility] SystemIn the event this information is protected by the Federal Confidentiality of Alcohol and Drug Abuse Patient Records regulations: The Federal rules restrict any use of the information to criminally investigate or prosecute any alcohol or drug abuse patient.[facility] SystemIn the event this information is protected by the Federal Confidentiality of Alcohol and Drug Abuse Patient Records regulations: The Federal rules restrict any use of the information to criminally investigate or prosecute any alcohol or drug abuse patient.[facility] SystemIn the event this information is protected by the Federal Confidentiality of Alcohol and Drug Abuse Patient Records regulations: The Federal rules restrict any use of the information to criminally investigate or prosecute any alcohol or drug abuse patient.[facility] SystemIn the event this information is protected by the Federal Confidentiality of Alcohol and Drug Abuse Patient Records regulations: The Federal rules restrict any use of the information to criminally investigate or prosecute any alcohol or drug abuse patient.[facility] SystemIn the event this information is protected by the Federal Confidentiality of Alcohol and Drug Abuse Patient Records regulations: The Federal rules restrict any use of the information to criminally investigate or prosecute any alcohol or drug abuse patient.[facility] SystemIn the event this information is protected by the Federal Confidentiality of Alcohol and Drug Abuse Patient Records regulations: The Federal rules restrict any use of the information to criminally investigate or prosecute any alcohol or drug abuse patient.[facility] SystemIn the event this information is protected by the Federal Confidentiality of Alcohol and Drug Abuse Patient Records regulations: The Federal rules restrict any use of the information to criminally investigate or prosecute any alcohol or drug abuse patient.[facility] SystemIn the event this information is protected by the Federal Confidentiality of Alcohol and Drug Abuse Patient Records regulations: The Federal rules restrict any use of the information to criminally investigate or prosecute any alcohol or drug abuse patient.[facility] SystemIn the event this information is protected by the Federal Confidentiality of Alcohol and Drug Abuse Patient Records regulations: The Federal rules restrict any use of the information to criminally investigate or prosecute any alcohol or drug abuse patient.[facility] SystemIn the event this information is protected by the Federal Confidentiality of Alcohol and Drug Abuse Patient Records regulations: The Federal rules restrict any use of the information to criminally investigate or prosecute any alcohol or drug abuse patient.[facility] SystemIn the event this information is protected by the Federal Confidentiality of Alcohol and Drug Abuse Patient Records regulations: The Federal rules restrict any use of the information to criminally investigate or prosecute any alcohol or drug abuse patient.[facility] SystemIn the event this information is protected by the Federal Confidentiality of Alcohol and Drug Abuse Patient Records regulations: The Federal rules restrict any use of the information to criminally investigate or prosecute any alcohol or drug abuse patient.[facility] SystemIn the event this information is protected by the Federal Confidentiality of Alcohol and Drug Abuse Patient Records regulations: The Federal rules restrict any use of the information to criminally investigate or prosecute any alcohol or drug abuse patient.[facility] SystemIn the event this information is protected by the Federal Confidentiality of Alcohol and Drug Abuse Patient Records regulations: The Federal rules restrict any use of the information to criminally investigate or prosecute any alcohol or drug abuse patient.[facility] SystemIn the event this information is protected by the Federal Confidentiality of Alcohol and Drug Abuse Patient Records regulations: The Federal rules restrict any use of the information to criminally investigate or prosecute any alcohol or drug abuse patient.[facility] SystemIn the event this information is protected by the Federal Confidentiality of Alcohol and Drug Abuse Patient Records regulations: The Federal rules restrict any use of the information to criminally investigate or prosecute any alcohol or drug abuse patient.[facility] SystemIn the event this information is protected by the Federal Confidentiality of Alcohol and Drug Abuse Patient Records regulations: The Federal rules restrict any use of the information to criminally investigate or prosecute any alcohol or drug abuse patient.[facility] SystemIn the event this information is protected by the Federal Confidentiality of Alcohol and Drug Abuse Patient Records regulations: The Federal rules restrict any use of the information to criminally investigate or prosecute any alcohol or drug abuse patient.[facility] SystemIn the event this information is protected by the Federal Confidentiality of Alcohol and Drug Abuse Patient Records regulations: The Federal rules restrict any use of the information to criminally investigate or prosecute any alcohol or drug abuse patient.[facility] SystemIn the event this information is protected by the Federal Confidentiality of Alcohol and Drug Abuse Patient Records regulations: The Federal rules restrict any use of the information to criminally investigate or prosecute any alcohol or drug abuse patient.[facility]In the event this information is protected by the Federal Confidentiality of Alcohol and Drug Abuse Patient Records regulations: The Federal rules restrict any use of the information to criminally investigate or prosecute any alcohol or drug abuse patient.[facility]In the event this information is protected by the Federal Confidentiality of Alcohol and Drug Abuse Patient Records regulations: The Federal rules restrict any use of the information to criminally investigate or prosecute any alcohol or drug abuse patient.[facility] SystemIn the event this information is protected by the Federal Confidentiality of Alcohol and Drug Abuse Patient Records regulations: The Federal rules restrict any use of the information to criminally investigate or prosecute any alcohol or drug abuse patient.[facility]In the event this information is protected by the Federal Confidentiality of Alcohol and Drug Abuse Patient Records regulations: The Federal rules restrict any use of the information to criminally investigate or prosecute any alcohol or drug abuse patient.[facility]In the event this information is protected by the Federal Confidentiality of Alcohol and Drug Abuse Patient Records regulations: The Federal rules restrict any use of the information to criminally investigate or prosecute any alcohol or drug abuse patient.[facility]In the event this information is protected by the Federal Confidentiality of Alcohol and Drug Abuse Patient Records regulations: The Federal rules restrict any use of the information to criminally investigate or prosecute any alcohol or drug abuse patient.[facility]In the event this information is protected by the Federal Confidentiality of Alcohol and Drug Abuse Patient Records regulations: The Federal rules restrict any use of the information to criminally investigate or prosecute any alcohol or drug abuse patient.[facility]In the event this information is protected by the Federal Confidentiality of Alcohol and Drug Abuse Patient Records regulations: The Federal rules restrict any use of the information to criminally investigate or prosecute any alcohol or drug abuse patient.[facility]In the event this information is protected by the Federal Confidentiality of Alcohol and Drug Abuse Patient Records regulations: The Federal rules restrict any use of the information to criminally investigate or prosecute any alcohol or drug abuse patient.[facility]In the event this information is protected by the Federal Confidentiality of Alcohol and Drug Abuse Patient Records regulations: The Federal rules restrict any use of the information to criminally investigate or prosecute any alcohol or drug abuse patient.[facility]In the event this information is protected by the Federal Confidentiality of Alcohol and Drug Abuse Patient Records regulations: The Federal rules restrict any use of the information to criminally investigate or prosecute any alcohol or drug abuse patient.[facility]In the event this information is protected by the Federal Confidentiality of Alcohol and Drug Abuse Patient Records regulations: The Federal rules restrict any use of the information to criminally investigate or prosecute any alcohol or drug abuse patient.[facility]In the event this information is protected by the Federal Confidentiality of Alcohol and Drug Abuse Patient Records regulations: The Federal rules restrict any use of the information to criminally investigate or prosecute any alcohol or drug abuse patient.[facility]In the event this information is protected by the Federal Confidentiality of Alcohol and Drug Abuse Patient Records regulations: The Federal rules restrict any use of the information to criminally investigate or prosecute any alcohol or drug abuse patient.[facility]In the event this information is protected by the Federal Confidentiality of Alcohol and Drug Abuse Patient Records regulations: The Federal rules restrict any use of the information to criminally investigate or prosecute any alcohol or drug abuse patient.[facility]In the event this information is protected by the Federal Confidentiality of Alcohol and Drug Abuse Patient Records regulations: The Federal rules restrict any use of the information to criminally investigate or prosecute any alcohol or drug abuse patient.[facility] SystemIn the event this information is protected by the Federal Confidentiality of Alcohol and Drug Abuse Patient Records regulations: The Federal rules restrict any use of the information to criminally investigate or prosecute any alcohol or drug abuse patient.[facility] SystemIn the event this information is protected by the Federal Confidentiality of Alcohol and Drug Abuse Patient Records regulations: The Federal rules restrict any use of the information to criminally investigate or prosecute any alcohol or drug abuse patient.[facility] the event this information is protected by the Federal Confidentiality of Alcohol and Drug Abuse Patient Records regulations: The Federal rules restrict any use of the information to criminally investigate or prosecute any alcohol or drug abuse patient.[facility]In the event this information is protected by the Federal Confidentiality of Alcohol and Drug Abuse Patient Records regulations: The Federal rules restrict any use of the information to criminally investigate or prosecute any alcohol or drug abuse patient.[facility]In the event this information is protected by the Federal Confidentiality of Alcohol and Drug Abuse Patient Records regulations: The Federal rules restrict any use of the information to criminally investigate or prosecute any alcohol or drug abuse patient.[facility]In the event this information is protected by the Federal Confidentiality of Alcohol and Drug Abuse Patient Records regulations: The Federal rules restrict any use of the information to criminally investigate or prosecute any alcohol or drug abuse patient.[facility]In the event this information is protected by the Federal Confidentiality of Alcohol and Drug Abuse Patient Records regulations: The Federal rules restrict any use of the information to criminally investigate or prosecute any alcohol or drug abuse patient.[facility]In the event this information is protected by the Federal Confidentiality of Alcohol and Drug Abuse Patient Records regulations: The Federal rules restrict any use of the information to criminally investigate or prosecute any alcohol or drug abuse patient.[facility]In the event this information is protected by the Federal Confidentiality of Alcohol and Drug Abuse Patient Records regulations: The Federal rules restrict any use of the information to criminally investigate or prosecute any alcohol or drug abuse patient.[facility] the event this information is protected by the Federal Confidentiality of Alcohol and Drug Abuse Patient Records regulations: The Federal rules restrict any use of the information to criminally investigate or prosecute any alcohol or drug abuse patient.[facility]In the event this information is protected by the Federal Confidentiality of Alcohol and Drug Abuse Patient Records regulations: The Federal rules restrict any use of the information to criminally investigate or prosecute any alcohol or drug abuse patient.[facility]In the event this information is protected by the Federal Confidentiality of Alcohol and Drug Abuse Patient Records regulations: The Federal rules restrict any use of the information to criminally investigate or prosecute any alcohol or drug abuse patient.[facility]In the event this information is protected by the Federal Confidentiality of Alcohol and Drug Abuse Patient Records regulations: The Federal rules restrict any use of the information to criminally investigate or prosecute any alcohol or drug abuse patient.[facility]In the event this information is protected by the Federal Confidentiality of Alcohol and Drug Abuse Patient Records regulations: The Federal rules restrict any use of the information to criminally investigate or prosecute any alcohol or drug abuse patient.[facility]In the event this information is protected by the Federal Confidentiality of Alcohol and Drug Abuse Patient Records regulations: The Federal rules restrict any use of the information to criminally investigate or prosecute any alcohol or drug abuse patient.[facility]In the event this information is protected by the Federal Confidentiality of Alcohol and Drug Abuse Patient Records regulations: The Federal rules restrict any use of the information to criminally investigate or prosecute any alcohol or drug abuse patient.[facility]In the event this information is protected by the Federal Confidentiality of Alcohol and Drug Abuse Patient Records regulations: The Federal rules restrict any use of the information to criminally investigate or prosecute any alcohol or drug abuse patient.[facility]In the event this information is protected by the Federal Confidentiality of Alcohol and Drug Abuse Patient Records regulations: The Federal rules restrict any use of the information to criminally investigate or prosecute any alcohol or drug abuse patient.[facility]In the event this information is protected by the Federal Confidentiality of Alcohol and Drug Abuse Patient Records regulations: The Federal rules restrict any use of the information to criminally investigate or prosecute any alcohol or drug abuse patient.[facility]In the event this information is protected by the Federal Confidentiality of Alcohol and Drug Abuse Patient Records regulations: The Federal rules restrict any use of the information to criminally investigate or prosecute any alcohol or drug abuse patient.[facility]In the event this information is protected by the Federal Confidentiality of Alcohol and Drug Abuse Patient Records regulations: The Federal rules restrict any use of the information to criminally investigate or prosecute any alcohol or drug abuse patient.[facility]In the event this information is protected by the Federal Confidentiality of Alcohol and Drug Abuse Patient Records regulations: The Federal rules restrict any use of the information to criminally investigate or prosecute any alcohol or drug abuse patient.[facility]In the event this information is protected by the Federal Confidentiality of Alcohol and Drug Abuse Patient Records regulations: The Federal rules restrict any use of the information to criminally investigate or prosecute any alcohol or drug abuse patient.[facility]In the event this information is protected by the Federal Confidentiality of Alcohol and Drug Abuse Patient Records regulations: The Federal rules restrict any use of the information to criminally investigate or prosecute any alcohol or drug abuse patient.[facility]In the event this information is protected by the Federal Confidentiality of Alcohol and Drug Abuse Patient Records regulations: The Federal rules restrict any use of the information to criminally investigate or prosecute any alcohol or drug abuse patient.[facility]In the event this information is protected by the Federal Confidentiality of Alcohol and Drug Abuse Patient Records regulations: The Federal rules restrict any use of the information to criminally investigate or prosecute any alcohol or drug abuse patient.[facility]In the event this information is protected by the Federal Confidentiality of Alcohol and Drug Abuse Patient Records regulations: The Federal rules restrict any use of the information to criminally investigate or prosecute any alcohol or drug abuse patient.[facility]In the event this information is protected by the Federal Confidentiality of Alcohol and Drug Abuse Patient Records regulations: The Federal rules restrict any use of the information to criminally investigate or prosecute any alcohol or drug abuse patient.[facility]In the event this information is protected by the Federal Confidentiality of Alcohol and Drug Abuse Patient Records regulations: The Federal rules restrict any use of the information to criminally investigate or prosecute any alcohol or drug abuse patient.[facility]In the event this information is protected by the Federal Confidentiality of Alcohol and Drug Abuse Patient Records regulations: The Federal rules restrict any use of the information to criminally investigate or prosecute any alcohol or drug abuse patient.[facility]In the event this information is protected by the Federal Confidentiality of Alcohol and Drug Abuse Patient Records regulations: The Federal rules restrict any use of the information to criminally investigate or prosecute any alcohol or drug abuse patient.[facility]In the event this information is protected by the Federal Confidentiality of Alcohol and Drug Abuse Patient Records regulations: The Federal rules restrict any use of the information to criminally investigate or prosecute any alcohol or drug abuse patient.[facility]In the event this information is protected by the Federal Confidentiality of Alcohol and Drug Abuse Patient Records regulations: The Federal rules restrict any use of the information to criminally investigate or prosecute any alcohol or drug abuse patient.[facility]In the event this information is protected by the Federal Confidentiality of Alcohol and Drug Abuse Patient Records regulations: The Federal rules restrict any use of the information to criminally investigate or prosecute any alcohol or drug abuse patient.[facility]In the event this information is protected by the Federal Confidentiality of Alcohol and Drug Abuse Patient Records regulations: The Federal rules restrict any use of the information to criminally investigate or prosecute any alcohol or drug abuse patient.[facility]In the event this information is protected by the Federal Confidentiality of Alcohol and Drug Abuse Patient Records regulations: The Federal rules restrict any use of the information to criminally investigate or prosecute any alcohol or drug abuse patient.[facility]In the event this information is protected by the Federal Confidentiality of Alcohol and Drug Abuse Patient Records regulations: The Federal rules restrict any use of the information to criminally investigate or prosecute any alcohol or drug abuse patient.[facility]In the event this information is protected by the Federal Confidentiality of Alcohol and Drug Abuse Patient Records regulations: The Federal rules restrict any use of the information to criminally investigate or prosecute any alcohol or drug abuse patient.[facility]In the event this information is protected by the Federal Confidentiality of Alcohol and Drug Abuse Patient Records regulations: The Federal rules restrict any use of the information to criminally investigate or prosecute any alcohol or drug abuse patient.[facility]In the event this information is protected by the Federal Confidentiality of Alcohol and Drug Abuse Patient Records regulations: The Federal rules restrict any use of the information to criminally investigate or prosecute any alcohol or drug abuse patient.[facility]In the event this information is protected by the Federal Confidentiality of Alcohol and Drug Abuse Patient Records regulations: The Federal rules restrict any use of the information to criminally investigate or prosecute any alcohol or drug abuse patient.[facility]In the event this information is protected by the Federal Confidentiality of Alcohol and Drug Abuse Patient Records regulations: The Federal rules restrict any use of the information to criminally investigate or prosecute any alcohol or drug abuse patient.[facility]In the event this information is protected by the Federal Confidentiality of Alcohol and Drug Abuse Patient Records regulations: The Federal rules restrict any use of the information to criminally investigate or prosecute any alcohol or drug abuse patient.[facility]In the event this information is protected by the Federal Confidentiality of Alcohol and Drug Abuse Patient Records regulations: The Federal rules restrict any use of the information to criminally investigate or prosecute any alcohol or drug abuse patient.[facility]In the event this information is protected by the Federal Confidentiality of Alcohol and Drug Abuse Patient Records regulations: The Federal rules restrict any use of the information to criminally investigate or prosecute any alcohol or drug abuse patient.[facility]In the event this information is protected by the Federal Confidentiality of Alcohol and Drug Abuse Patient Records regulations: The Federal rules restrict any use of the information to criminally investigate or prosecute any alcohol or drug abuse patient.[facility]In the event this information is protected by the Federal Confidentiality of Alcohol and Drug Abuse Patient Records regulations: The Federal rules restrict any use of the information to criminally investigate or prosecute any alcohol or drug abuse patient.[facility]In the event this information is protected by the Federal Confidentiality of Alcohol and Drug Abuse Patient Records regulations: The Federal rules restrict any use of the information to criminally investigate or prosecute any alcohol or drug abuse patient.[facility]In the event this information is protected by the Federal Confidentiality of Alcohol and Drug Abuse Patient Records regulations: The Federal rules restrict any use of the information to criminally investigate or prosecute any alcohol or drug abuse patient.[facility]In the event this information is protected by the Federal Confidentiality of Alcohol and Drug Abuse Patient Records regulations: The Federal rules restrict any use of the information to criminally investigate or prosecute any alcohol or drug abuse patient.[facility]In the event this information is protected by the Federal Confidentiality of Alcohol and Drug Abuse Patient Records regulations: The Federal rules restrict any use of the information to criminally investigate or prosecute any alcohol or drug abuse patient.[facility]In the event this information is protected by the Federal Confidentiality of Alcohol and Drug Abuse Patient Records regulations: The Federal rules restrict any use of the information to criminally investigate or prosecute any alcohol or drug abuse patient.[facility]In the event this information is protected by the Federal Confidentiality of Alcohol and Drug Abuse Patient Records regulations: The Federal rules restrict any use of the information to criminally investigate or prosecute any alcohol or drug abuse patient.[facility]In the event this information is protected by the Federal Confidentiality of Alcohol and Drug Abuse Patient Records regulations: The Federal rules restrict any use of the information to criminally investigate or prosecute any alcohol or drug abuse patient.[facility]In the event this information is protected by the Federal Confidentiality of Alcohol and Drug Abuse Patient Records regulations: The Federal rules restrict any use of the information to criminally investigate or prosecute any alcohol or drug abuse patient.[facility]In the event this information is protected by the Federal Confidentiality of Alcohol and Drug Abuse Patient Records regulations: The Federal rules restrict any use of the information to criminally investigate or prosecute any alcohol or drug abuse patient.[facility]In the event this information is protected by the Federal Confidentiality of Alcohol and Drug Abuse Patient Records regulations: The Federal rules restrict any use of the information to criminally investigate or prosecute any alcohol or drug abuse patient.[facility]In the event this information is protected by the Federal Confidentiality of Alcohol and Drug Abuse Patient Records regulations: The Federal rules restrict any use of the information to criminally investigate or prosecute any alcohol or drug abuse patient.[facility]In the event this information is protected by the Federal Confidentiality of Alcohol and Drug Abuse Patient Records regulations: The Federal rules restrict any use of the information to criminally investigate or prosecute any alcohol or drug abuse patient.[facility] the event this information is protected by the Federal Confidentiality of Alcohol and Drug Abuse Patient Records regulations: The Federal rules restrict any use of the information to criminally investigate or prosecute any alcohol or drug abuse patient.[facility]In the event this information is protected by the Federal Confidentiality of Alcohol and Drug Abuse Patient Records regulations: The Federal rules restrict any use of the information to criminally investigate or prosecute any alcohol or drug abuse patient.[facility]In the event this information is protected by the Federal Confidentiality of Alcohol and Drug Abuse Patient Records regulations: The Federal rules restrict any use of the information to criminally investigate or prosecute any alcohol or drug abuse patient.[facility]In the event this information is protected by the Federal Confidentiality of Alcohol and Drug Abuse Patient Records regulations: The Federal rules restrict any use of the information to criminally investigate or prosecute any alcohol or drug abuse patient.[facility]In the event this information is protected by the Federal Confidentiality of Alcohol and Drug Abuse Patient Records regulations: The Federal rules restrict any use of the information to criminally investigate or prosecute any alcohol or drug abuse patient.[facility]In the event this information is protected by the Federal Confidentiality of Alcohol and Drug Abuse Patient Records regulations: The Federal rules restrict any use of the information to criminally investigate or prosecute any alcohol or drug abuse patient.[facility]In the event this information is protected by the Federal Confidentiality of Alcohol and Drug Abuse Patient Records regulations: The Federal rules restrict any use of the information to criminally investigate or prosecute any alcohol or drug abuse patient.[facility]In the event this information is protected by the Federal Confidentiality of Alcohol and Drug Abuse Patient Records regulations: The Federal rules restrict any use of the information to criminally investigate or prosecute any alcohol or drug abuse patient.[facility]In the event this information is protected by the Federal Confidentiality of Alcohol and Drug Abuse Patient Records regulations: The Federal rules restrict any use of the information to criminally investigate or prosecute any alcohol or drug abuse patient.[facility]In the event this information is protected by the Federal Confidentiality of Alcohol and Drug Abuse Patient Records regulations: The Federal rules restrict any use of the information to criminally investigate or prosecute any alcohol or drug abuse patient.[facility]In the event this information is protected by the Federal Confidentiality of Alcohol and Drug Abuse Patient Records regulations: The Federal rules restrict any use of the information to criminally investigate or prosecute any alcohol or drug abuse patient.[facility]In the event this information is protected by the Federal Confidentiality of Alcohol and Drug Abuse Patient Records regulations: The Federal rules restrict any use of the information to criminally investigate or prosecute any alcohol or drug abuse patient.[facility]In the event this information is protected by the Federal Confidentiality of Alcohol and Drug Abuse Patient Records regulations: The Federal rules restrict any use of the information to criminally investigate or prosecute any alcohol or drug abuse patient.[facility]In the event this information is protected by the Federal Confidentiality of Alcohol and Drug Abuse Patient Records regulations: The Federal rules restrict any use of the information to criminally investigate or prosecute any alcohol or drug abuse patient.[facility]In the event this information is protected by the Federal Confidentiality of Alcohol and Drug Abuse Patient Records regulations: The Federal rules restrict any use of the information to criminally investigate or prosecute any alcohol or drug abuse patient.[facility]In the event this information is protected by the Federal Confidentiality of Alcohol and Drug Abuse Patient Records regulations: The Federal rules restrict any use of the information to criminally investigate or prosecute any alcohol or drug abuse patient.[facility]In the event this information is protected by the Federal Confidentiality of Alcohol and Drug Abuse Patient Records regulations: The Federal rules restrict any use of the information to criminally investigate or prosecute any alcohol or drug abuse patient.[facility]In the event this information is protected by the Federal Confidentiality of Alcohol and Drug Abuse Patient Records regulations: The Federal rules restrict any use of the information to criminally investigate or prosecute any alcohol or drug abuse patient.[facility]In the event this information is protected by the Federal Confidentiality of Alcohol and Drug Abuse Patient Records regulations: The Federal rules restrict any use of the information to criminally investigate or prosecute any alcohol or drug abuse patient.[facility]In the event this information is protected by the Federal Confidentiality of Alcohol and Drug Abuse Patient Records regulations: The Federal rules restrict any use of the information to criminally investigate or prosecute any alcohol or drug abuse patient.[facility]In the event this information is protected by the Federal Confidentiality of Alcohol and Drug Abuse Patient Records regulations: The Federal rules restrict any use of the information to criminally investigate or prosecute any alcohol or drug abuse patient.[facility]In the event this information is protected by the Federal Confidentiality of Alcohol and Drug Abuse Patient Records regulations: The Federal rules restrict any use of the information to criminally investigate or prosecute any alcohol or drug abuse patient.[facility]In the event this information is protected by the Federal Confidentiality of Alcohol and Drug Abuse Patient Records regulations: The Federal rules restrict any use of the information to criminally investigate or prosecute any alcohol or drug abuse patient.[facility]In the event this information is protected by the Federal Confidentiality of Alcohol and Drug Abuse Patient Records regulations: The Federal rules restrict any use of the information to criminally investigate or prosecute any alcohol or drug abuse patient.[facility]In the event this information is protected by the Federal Confidentiality of Alcohol and Drug Abuse Patient Records regulations: The Federal rules restrict any use of the information to criminally investigate or prosecute any alcohol or drug abuse patient.[facility]In the event this information is protected by the Federal Confidentiality of Alcohol and Drug Abuse Patient Records regulations: The Federal rules restrict any use of the information to criminally investigate or prosecute any alcohol or drug abuse patient.[facility]In the event this information is protected by the Federal Confidentiality of Alcohol and Drug Abuse Patient Records regulations: The Federal rules restrict any use of the information to criminally investigate or prosecute any alcohol or drug abuse patient.[facility]In the event this information is protected by the Federal Confidentiality of Alcohol and Drug Abuse Patient Records regulations: The Federal rules restrict any use of the information to criminally investigate or prosecute any alcohol or drug abuse patient.[facility]In the event this information is protected by the Federal Confidentiality of Alcohol and Drug Abuse Patient Records regulations: The Federal rules restrict any use of the information to criminally investigate or prosecute any alcohol or drug abuse patient.[facility] SystemIn the event this information is protected by the Federal Confidentiality of Alcohol and Drug Abuse Patient Records regulations: The Federal rules restrict any use of the information to criminally investigate or prosecute any alcohol or drug abuse patient.[facility] SystemIn the event this information is protected by the Federal Confidentiality of Alcohol and Drug Abuse Patient Records regulations: The Federal rules restrict any use of the information to criminally investigate or prosecute any alcohol or drug abuse patient.[facility] SystemIn the event this information is protected by the Federal Confidentiality of Alcohol and Drug Abuse Patient Records regulations: The Federal rules restrict any use of the information to criminally investigate or prosecute any alcohol or drug abuse patient.[facility] SystemIn the event this information is protected by the Federal Confidentiality of Alcohol and Drug Abuse Patient Records regulations: The Federal rules restrict any use of the information to criminally investigate or prosecute any alcohol or drug abuse patient.[facility] SystemIn the event this information is protected by the Federal Confidentiality of Alcohol and Drug Abuse Patient Records regulations: The Federal rules restrict any use of the information to criminally investigate or prosecute any alcohol or drug abuse patient.[facility] SystemIn the event this information is protected by the Federal Confidentiality of Alcohol and Drug Abuse Patient Records regulations: The Federal rules restrict any use of the information to criminally investigate or prosecute any alcohol or drug abuse patient.[facility] SystemIn the event this information is protected by the Federal Confidentiality of Alcohol and Drug Abuse Patient Records regulations: The Federal rules restrict any use of the information to criminally investigate or prosecute any alcohol or drug abuse patient.[facility] SystemIn the event this information is protected by the Federal Confidentiality of Alcohol and Drug Abuse Patient Records regulations: The Federal rules restrict any use of the information to criminally investigate or prosecute any alcohol or drug abuse patient.[facility] SystemIn the event this information is protected by the Federal Confidentiality of Alcohol and Drug Abuse Patient Records regulations: The Federal rules restrict any use of the information to criminally investigate or prosecute any alcohol or drug abuse patient.[facility] SystemIn the event this information is protected by the Federal Confidentiality of Alcohol and Drug Abuse Patient Records regulations: The Federal rules restrict any use of the information to criminally investigate or prosecute any alcohol or drug abuse patient.[facility] SystemIn the event this information is protected by the Federal Confidentiality of Alcohol and Drug Abuse Patient Records regulations: The Federal rules restrict any use of the information to criminally investigate or prosecute any alcohol or drug abuse patient.[facility] SystemIn the event this information is protected by the Federal Confidentiality of Alcohol and Drug Abuse Patient Records regulations: The Federal rules restrict any use of the information to criminally investigate or prosecute any alcohol or drug abuse patient.[facility] SystemIn the event this information is protected by the Federal Confidentiality of Alcohol and Drug Abuse Patient Records regulations: The Federal rules restrict any use of the information to criminally investigate or prosecute any alcohol or drug abuse patient.[facility] SystemIn the event this information is protected by the Federal Confidentiality of Alcohol and Drug Abuse Patient Records regulations: The Federal rules restrict any use of the information to criminally investigate or prosecute any alcohol or drug abuse patient.[facility] SystemIn the event this information is protected by the Federal Confidentiality of Alcohol and Drug Abuse Patient Records regulations: The Federal rules restrict any use of the information to criminally investigate or prosecute any alcohol or drug abuse patient.[facility] SystemIn the event this information is protected by the Federal Confidentiality of Alcohol and Drug Abuse Patient Records regulations: The Federal rules restrict any use of the information to criminally investigate or prosecute any alcohol or drug abuse patient.[facility] SystemIn the event this information is protected by the Federal Confidentiality of Alcohol and Drug Abuse Patient Records regulations: The Federal rules restrict any use of the information to criminally investigate or prosecute any alcohol or drug abuse patient.[facility] SystemIn the event this information is protected by the Federal Confidentiality of Alcohol and Drug Abuse Patient Records regulations: The Federal rules restrict any use of the information to criminally investigate or prosecute any alcohol or drug abuse patient.[facility] SystemIn the event this information is protected by the Federal Confidentiality of Alcohol and Drug Abuse Patient Records regulations: The Federal rules restrict any use of the information to criminally investigate or prosecute any alcohol or drug abuse patient.[facility] SystemIn the event this information is protected by the Federal Confidentiality of Alcohol and Drug Abuse Patient Records regulations: The Federal rules restrict any use of the information to criminally investigate or prosecute any alcohol or drug abuse patient.[facility] Reason for Visit (unrecogniz ed section and content) Reason Comments Non-Chemotherapy Treatment Specialty Diagnoses / Procedures Referred By Contac t Referred To Contact Hematology/Oncology / HEMATOLOGY/ONCOLOGY Diagnoses 2MO OV Procedures EST SIMPLE Willam Maria M Stafford, DO [address] [place] [address] Phone: tel: fax: WillamMaria M, DO [address] [place] [address] Phone: tel: fax: Referral ID Status Reason Start Date Expiration Date Visits Requested Visits Authorized [id number] Authorized Patient Cleared - Qualified 100% FAS 04/04/2025 07/03/2025 99 99 Reason Comments PT Discharge Reason Comments Established Patient Reason Comments Radio Main J1 Reason Comments Physical Therapy Reason Comments PT Progress Note Specialty Diagnoses / Procedures Referred By Contac t Referred To Contact [facility] Diagnoses TOS (thoracic outlet syndrome) 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 [place] [address] [place] [address] Referral ID Status Reason Start Date Expiration Date V isits Requested Visits Authorized [id number] Closed Auto-Generated Referral Patient Cleared - Qualified 100% FAS 02/13/2025 05/14/2025 99 99 Specialty Diagnoses / Procedures Referred By Contac t Referred To Contact [facility] Diagnoses Right foot injury X 2 weeks Procedures EST SAME DAY [facility] [address] [place] [address] Phone: tel: [facility] [address] [place] [address] Phone: tel: Referral ID Status Reason Start Date Expiration Date Visits Requested Visits Authorized [id number] Authorized Patient Cleared - Qualified 100% FAS 11/21/2024 04/21/2025 99 99 Reason Comments PT Eval Referral ID Status Reason Start Date Expiration Date Visits Requested Visits Authorized [id number] Authorized Auto-Generate d Referral Patient Cleared - Qualified 100% FAS 02/13/2025 05/14/2025 99 99 Referral ID Status Reason Start Date Expiration Date Visits Requested Visits Authorized [id number] Authorized Patient Cleared - Qualified 100% FAS 11/21/2024 02/19/2025 99 99 Specialty Diagnoses / Procedures Referred By Contac t Referred To Contact LABORATORY MEDICINE Diagnoses Labs Procedures Labs Ravinder Babb MD [address] [place] [id number] Lab [facility] Draw Station [address] [place] [address] Referral ID Status Reason Start Date Expiration Date Visits Requested Visits Authorized [id number] Authorized Financial Clearance Required - Self Pay Patient Cleared - Qualified HCAP/FA Referred for LUIS 12/13/2024 99 99 Specialty Diagnoses / Procedures Referred By Contac t Referred To Contact [facility] Diagnoses SANDOVAL (dyspnea on exertion) Procedures ECHO ECHO TTHRC R-T 2D W/WOM-MODE COMPL SPEC&COLR D ALL MEDICALLY NECESSARY APPTS Mini Crystal PA-C [address] [place] [address] [place] [address] Referral ID Status Reason Start Date Expiration Date Visits Requested Visits Authorized [id number] Authorized Auto-Generate d Referral Patient Cleared - Qualified HCAP/501/FA 05/10/2024 08/08/2024 99 99 Reason Comments Vaginal Problem Specialty Diagnoses / Procedures Referred By Contac t Referred To Contact BODY TECHNICIAN/PAINTER Diagnoses post Delivered at [facility] 04/09/22 Procedures POST MD Latricia Deutsch Sara, MD [address] [facility] [place] [id number] Referral ID Status Reason Start Date Expiration Date Visits Requested Visits Authorized [id number] Authorized Financial Clearance Required - Self Pay Patient Cleared - Qualified HCAP/501/FA 04/25/2022 07/24/2022 99 99 Reason Onset Date Comments Care 04/04/2022 Specialty Diagnoses / Procedures Referred By Contac t Referred To Contact Laboratory Medicine / LAB [facility] Diagnoses lab Procedures LAB Allie Rome MD [address] [place] [address] Lab [facility] Mob [address] [place] [address] Referral ID Status Reason Start Date Expiration Date Visits Requested Visits Authorized [id number] Authorized Financial Clearance Required - Self Pay Patient Cleared - Qualified HCAP/501/FA 01/09/2022 04/09/2022 99 99 Reason Onset Date Comments Care 03/19/2022 Reason Onset Date Comments Care 03/05/2022 Reason Comments US Reason Comments Infusion Reason Onset Date Comments Care 02/19/2022 Reason Comments Social Work Services Reason Comments Patient Question Reason Onset Date Comments Care 01/09/2022 Specialty Diagnoses / Procedures Referred By Fish t Referred To Contact [facility] Diagnoses Supervision of high risk in first trimester screening encounter Procedures NUCHAL TRANSLUCENCY WHI OB US NUCHAL BRIANDA 1 GEST Katina Ruiz MD [address] [place] [address] [facility] [address] [place] [address] Referral ID Status Reason Start Date Expiration Date V isits Requested Visits Authorized [id number] Closed Financial Clearance Required - Self Pay Patient Cleared - Qualified HCAP/501/FA 09/26/2021 12/25/2021 99 99 Reason Comments Results Reason Comments Clinical Update weight check Reason Onset Date Comments Care 02/05/2022 Specialty Diagnoses / Procedures Referred By Fish t Referred To Contact Laboratory Medicine / LAB [facility] Diagnoses lab Procedures LAB Allie Rome MD [address] [facility] [place] [address] Lab [facility] Mob [address] [place] [address] Referral ID Status Reason Start Date Expiration Date Visits Requested Visits Authorized [id number] Pending Review Financial Clearance Required - Self Pay 01/09/2022 04/09/2022 99 99 Reason Comments Question (OB Question) Reason Comments Opened In Error Reason Comments Care headache Reason Comments Appointment Reason Comments Patient Update Reason Comments Patient Assistance Reason Comments Refill Request Reason Comments Orders Reason Onset Date Comments Care 03/27/2022 Reason Onset Date Comments Care 04/01/2022 Reason Comments Early Reason Comments Punch Press Feeder - Other Symptoms Reason Comments Routine Reason Onset Date Comments Refill Request 08/07/2022 Reason Comments Lovenox Refill Reason Comments Lovenox pick-up Reason Comments Lovenox Reason Comments Weight Check lovenox Reason Comments Results CBC Reason Comments Medication Problem Reason Comments Pain Care Coordination ED follow up Reason Comments Yearly Exam Reason Comments Recheck Specialty Diagnoses / Procedures Referred By Contac t Referred To Contact Diagnoses All appointments Procedures OFFICE/OUTPATIENT ESTABLISHED MOD MDM 30 MIN Ravinder Babb MD [address] [place] [address] [place] [address] Referral ID Status Reason Start Date Expiration Date Visits Requested Visits Authorized [id number] Authorized Financial Clearance Required - Self Pay Patient Cleared - Qualified HCAP/501/FA 10/30/2023 01/28/2024 99 99 Reason Comments Established Patient Specialty Diagnoses / Procedures Referred By Contac t Referred To Contact Diagnoses All appointments Procedures OFFICE/OUTPATIENT ESTABLISHED MOD MDM 30 MIN Ravinder Babb MD [address] [place] [address] [place] [address] Reason Onset Date Comments Refill Request 12/29/2023 Reason Comments Foreign Body Sensation Eye Pain Both Eyes Specialty Diagnoses / Procedures Referred By Contac t Referred To Contact Ophthalmology Diagnoses Pain of both eyes Procedures CONSULT TO OPHTHALMOLOGY OFFICE/OUTPATIENT NEW HIGH MDM 60 MINUTES Maria M Quarles DO [address] [place] [address] Referral ID Status Reason Start Date Expiration Date V isits Requested Visits Authorized [id number] Closed PCP Requested Referral 12/23/2023 12/22/2024 1 1 Reason Comments Allergic Reaction Reason Comments ER F/U Reason Comments New Patient Evaluation Reason Comments Recheck 6 Month Exam Reason Comments Results Orders Reason Comments Patient Update Patient Question Reason Comments Follow Up Discuss medication Specialty Diagnoses / Procedures Referred By Contac t Referred To Contact [facility] Diagnoses SANDOVAL (dyspnea on exertion) Procedures ECHO ECHO TTHRC R-T 2D W/WOM-MODE COMPL SPEC&COLR D ALL MEDICALLY NECESSARY APPTS Mini Crystal PA-C [address] [place] [address] [facility] [address] Reason Comments medication question/results Reason Comments Punch Press Feeder - Other Questions Reason Comments Hospital F/U Reason Comments Eliquis Assistance Reason Comments requesting medication Reason Onset Date Comments Refill Request 09/07/2024 Reason Comments Punch Press Feeder - Other ED Follow-up Reason Comments Follow Up Specialty Diagnoses / Procedures Referred By Contac t Referred To Contact LABORATORY MEDICINE Diagnoses Labs Procedures Labs Ravinder Babb MD [address] [place] [address] [facility] Draw Station [address] [place] [address] Reason Comments Transition Of Care Reason Comments New Patient Consult Specialty Diagnoses / Procedures Referred By Contac Referred To Contact Vascular Surgery Diagnoses Thoracic outlet syndrome Procedures CONSULT TO VASCULAR SURGERY OFFICE/OUTPATIENT [facility] 60 MINUTES Nata Valle MD [address] [place] [id number] Referral ID Status Reason Start Date Expiration Date V isits Requested Visits Authorized [id number] Closed PCP Requested Referral 10/18/2024 10/18/2025 1 1 Reason Comments AVS 10/31 Reason Comments Preparations For Surgery PAC Reason Comments Consult Specialty Diagnoses / Procedures Referred By Contac t Referred To Contact LABORATORY MEDICINE Diagnoses Labs Procedures Labs Ravinder Babb MD [address] [place] [address] Phone: tel: fax: [facility] [address] [place] [address] Phone: tel: Referral ID Status Reason Start Date Expiration Date Visits Requested Visits Authorized [id number] Authorized Financial Clearance Required - Self Pay Patient Cleared - Qualified HCAP/FA Referred for LUIS 4 12/13/2024 99 99 Reason Comments Pain (foot) x 2 weeks, injured o n baby gate going down stairs, bruising, toes numb x weds, clotting disorder Specialty Diagnoses / Procedures Referred By Contac t Referred To Contact [facility] Diagnoses Right foot injury X 2 weeks Procedures EST SAME DAY [facility] [address] [place] [address] Phone: tel: [facility] [address] [place] [address] Phone: tel: Referral ID Status Reason Start Date Expiration Date Visits Requested Visits Authorized [id number] Authorized Patient Cleared - Qualified 100% FAS 11/21/2024 02/19/2025 99 99 Reason Comments Patient Update Appointment Reason Comments ER F/U [facility] Alida n. 11/26/24. New Patient Thoracic Outlet Syndrome Scheduled for s urgery with the vascular physician 02/01/25 trouble sleeping Specialty Diagnoses / [facility] Diagnoses Right foot injury X 2 weeks Procedures EST SAME DAY [facility] [address] [place] [phone] Phone: tel: [facility] [address] [place] [address] Phone: tel: Referral ID Status Reason Start Date Expiration Date Visits Requested Visits Authorized [id number] Authorized Patient Cleared - Qualified 100% FAS 11/21/2024 02/19/2025 99 99 Reason Comments Social Work Services Lovenox Patient Assistance Reason Comments Pain (Shoulder Pain) left x 1.5 days, domingo rgery 2 weeks ago Referral ID Status Reason Start Date Expiration Date Visits Requested Visits Authorized [id number] Authorized Patient Cleared - Qualified 100% FAS 11/21/2024 04/21/2025 99 99 Reason Comments Follow Up 4 month recheck Hair Loss Hypothyroidism Been taking levothyr oxine 88mcg over the weekend. Prior to the weekend was taking levothyroxine 100mcg daily. Reason Comments Social Work Services Eliquis Patient Assistance Reason Comments Multiple Concerns Care Teams (unrecognized sec tion and content) Photographic Supervisor Relationship Specialty Start Date End Date Ravinder Babb MD [address] [place], [place] [id number] PCP - General Family Practice 05/26/18 Photographic Supervisor Relationship Specialty Start Date End Date Ravinder Babb MD [address] [facility] [place] [address] PCP - General Family Practice 05/26/18 Photographic Supervisor Relationship Specialty Start Date End Date Ravinder Babb MD [facility] [place] [address] PCP - General Family Practice 05/26/18 Photographic Supervisor Relationship Specialty Start Date End Date Ravinder Babb MD [facility] [place] [address] PCP - General Family Practice 05/26/18 Photographic Supervisor Relationship Specialty Start Date End Date Ravinder Babb MD [address] [place] [address], [place] [address] PCP - General Family Practice 05/26/18 Photographic Supervisor Relationship Specialty Start Date End Date Ravinder Babb MD [address] [place] [address], [place] [address] PCP - General Family Practice 05/26/18 Photographic Supervisor Relationship Specialty Start Date End Date Ravinder Babb MD [address] [place] [address], [place] [address] PCP - General Family Practice 05/26/18 Photographic Supervisor Relationship Specialty Start Date End Date Ravinder Babb MD [facility] [place] [address] PCP - General Family Practice 05/26/18 Photographic Supervisor Relationship Specialty Start Date End Date Ravinder Babb MD [address] [place] [address], [place] [address] PCP - General Family Practice 05/26/18 Photographic Supervisor Relationship Specialty Start Date End Date Ravinder Babb MD [address] [place] [address], [place] [address] PCP - General Family Practice 05/26/18 Photographic Supervisor Relationship Specialty Start Date End Date Ravinder Babb MD [address] [facility] [place] [address] PCP - General Family Practice 05/26/18 Photographic Supervisor Relationship Specialty Start Date End Date Ravinder Babb MD [facility] [place] [address] PCP - General Family Practice 05/26/18 Photographic Supervisor Relationship Specialty Start Date End Date Ravinder Babb MD [address] [place] [address], [place] [address] PCP - General Family Practice 05/26/18 Photographic Supervisor Relationship Specialty Start Date End Date Ravinder Babb MD [address] [place] [address], [place] [address] PCP - General Family Practice 05/26/18 Photographic Supervisor Relationship Specialty Start Date End Date Ravinder Babb MD [address] [place] [address], [place] [address] PCP - General Family Practice 05/26/18 Photographic Supervisor Relationship Specialty Start Date End Date Ravinder Babb MD [address] [place] [address], [place] [address] PCP - General Family Practice 05/26/18 Photographic Supervisor Relationship Specialty Start Date End Date Ravinder Babb MD [address] [place] [address], [place] [address] PCP - General Family Practice 05/26/18 Photographic Supervisor Relationship Specialty Start Date End Date Ravinder Babb MD [address] [place] [address], [place] [address] PCP - General Family Practice 05/26/18 Photographic Supervisor Relationship Specialty Start Date End Date Ravinedr Babb MD [address] [place] [address], [place] [address] PCP - General Family Practice 05/26/18 Photographic Supervisor Relationship Specialty Start Date End Date Ravinder Babb MD [address] [facility] [place] [address] PCP - General Family Practice 05/26/18 Photographic Supervisor Relationship Specialty Start Date End Date Ravinder Babb MD [address] [facility] [place] [address] PCP - General Family Practice 05/26/18 Photographic Supervisor Relationship Specialty Start Date End Date Ravinder Babb MD [facility] [place] [address] PCP - General Family Practice 05/26/18 Photographic Supervisor Relationship Specialty Start Date End Date Ravinder Babb MD [address] [place] [address] PCP - General Family Practice 05/26/18 Photographic Supervisor Relationship Specialty Start Date End Date Ravinder Babb MD [facility] [place] [address] PCP - General Family Practice 05/26/18 Photographic Supervisor Relationship Specialty Start Date End Date Ravinder Babb MD [facility] [place] [address] PCP - General Family Practice 05/26/18 Photographic Supervisor Relationship Specialty Start Date End Date Ravinder Babb MD [facility] [place] [address] PCP - General Family Practice 05/26/18 Photographic Supervisor Relationship Specialty Start Date End Date Ravinder Babb MD [address] [place] [address] [place] [address] PCP - General Family Practice 05/26/18 Photographic Supervisor Relationship Specialty Start Date End Date Ravinder Babb MD [address] [facility] [place] [address] PCP - General Family Practice 05/26/18 Photographic Supervisor Relationship Specialty Start Date End Date Ravinder Babb MD [address] [facility] [place] [address] PCP - General Family Practice 05/26/18 Photographic Supervisor Relationship Specialty Start Date End Date Ravinder Babb MD [address] [place] [address] PCP - General Family Medicine 05/26/18 Photographic Supervisor Relationship Specialty Start Date End Date Ravinder Babb MD [address] [place] [address] PCP - General Family Medicine 05/26/18 Photographic Supervisor Relationship Specialty Start Date End Date Ravinder Babb MD [facility] [place] [address] PCP - General Family Medicine 05/26/18 Photographic Supervisor Relationship Specialty Start Date End Date Ravinder Babb MD [address] [place] [address] PCP - General Family Medicine 05/26/18 Photographic Supervisor Relationship Specialty Start Date End Date Ravinder Babb MD [address] [place] [address] PCP - General Family Medicine 05/26/18 Photographic Supervisor Relationship Specialty [place] [address] [place] [address] PCP - General Family Medicine 05/26/18 Photographic Supervisor Relationship Specialty Start Date End Date Ravinder Babb MD [address] [place] [address] PCP - General Family Medicine 05/26/18 Photographic Supervisor Relationship Specialty Start Date End Date Ravinder Babb MD [address] [place] [address] PCP - General Family Medicine 05/26/18 Photographic Supervisor Relationship Specialty Start Date End Date Ravinder Babb MD [address] [place] [address] PCP - General Family Medicine 05/26/18 Photographic Supervisor Relationship Specialty Start Date End Date Ravinder Babb MD [address] [place] [address] PCP - General Family Medicine 05/26/18 Photographic Supervisor Relationship Specialty Start Date End Date Ravinder Babb MD [address] [place] [address] PCP - General Family Medicine 05/26/18 Photographic Supervisor Relationship Specialty Start Date End Date Ravinder Babb MD [address] [place] [address] PCP - General Family Medicine 05/26/18 Photographic Supervisor Relationship Specialty Start Date End Date Ravinder Babb MD [address] [place] [address] PCP - General Family Medicine 05/26/18 Photographic Supervisor Relationship Specialty Start Date End Date Ravinder Babb MD [address] [place] [address] PCP - General Family Medicine 05/26/18 Photographic Supervisor Relationship Specialty Start Date End Date Ravinder Babb MD [address] [place] [address] PCP - General Family Medicine 05/26/18 Photographic Supervisor Relationship Specialty Start Date End Date Ravinder Babb MD [address] [place] [address] PCP - General Family Medicine 05/26/18 Photographic Supervisor Relationship Specialty Start Date End Date Ravinder Babb MD [address] [place] [address] PCP - General Family Medicine 05/26/18 Photographic Supervisor Relationship Specialty Start Date End Date Ravinder Babb MD [address] [place] [address] PCP - General Family Medicine 05/26/18 Photographic Supervisor Relationship Specialty Start Date End Date Ravinder Babb MD [address] [place] [address] PCP - General Family Medicine 05/26/18 Photographic Supervisor Relationship Specialty Start Date End Date Ravinder Babb MD [address] [place] [address] PCP - General Family Medicine 05/26/18 Photographic Supervisor Relationship Specialty Start Date End Date Ravinder Babb MD [address] [place] [address] PCP - General Family Medicine 05/26/18 Photographic Supervisor Relationship Specialty Start Date End Date Ravinder Babb MD [address] [place] [address] PCP - General Family Medicine 05/26/18 Photographic Supervisor Relationship Specialty Start Date End Date Ravinder Babb MD [address] [place] [address] PCP - General Family Medicine 05/26/18 Photographic Supervisor Relationship Specialty Start Date End Date Ravinder Babb MD [address] [place] [address] PCP - General Family Medicine 05/26/18 Madalyn Paiz MD [employer] 06/03/24 06/16/24 Photographic Supervisor Relationship Specialty Start Date End Date Ravinder Babb MD [address] [place] [address] PCP - General Family Medicine 05/26/18 Madalyn Paiz MD [employer] 06/03/24 06/16/24 Photographic Supervisor Relationship Specialty Start Date End Date Ravinder Babb MD [address] [place] [address] PCP - General Family Medicine 05/26/18 Madalyn Paiz MD [employer] 06/03/24 06/16/24 Photographic Supervisor Relationship Specialty Start Date End Date Ravinder Babb MD [address] [place] [address] PCP - General Family Medicine 05/26/18 Photographic Supervisor Relationship Specialty Start Date End Date Ravinder Babb MD [address] [place] [address] PCP - General Family Medicine 05/26/18 Leora Balderas, CHANTEL.DIRECTOR OF PUBLICATIONS [address] [place] [address] [facility] 09/10/24 Mini Crystal PA-C [address] [place] [address] [facility] 09/10/24 Photographic Supervisor Relationship Specialty Start Date End Date Ravinder Babb MD [address] [place] [address] PCP - General Family Medicine 05/26/18 Leora Balderas, CHANTEL.DIRECTOR OF PUBLICATIONS [address] [place] [address] [facility] 09/10/24 Mini Crystal PA-C [address] [place] [address] [facility] Photographic Supervisor Relationship Specialty Start Date End Date Ravinder Babb MD [address] [place] [address] PCP - General Family Medicine 05/26/18 Leora Balderas, CHANTEL.DIRECTOR OF PUBLICATIONS [address] [place] [address] [facility] 09/10/24 Mini Crystal PA-C [address] [place] [address] [employer] [facility] 09/10/24 Photographic Supervisor Relationship Specialty Start Date End Date Ravinder Babb MD [address] [place] [address] PCP - General Family Medicine 05/26/18 Leora Balderas, SANITATION OFFICER.DIRECTOR OF PUBLICATIONS [address] [place] [address] [facility] 09/10/24 Mini Crystal PA-C [address] [place] [address] [employer] [facility] 09/10/24 Photographic Supervisor Relationship Specialty Start Date End Date Ravinder Babb MD [address] [place] [address] PCP - General Family Medicine 05/26/18 Leora Balderas APRN.DIRECTOR OF PUBLICATIONS [address] [place] [address] [facility] 09/10/24 Mini Crystal PA-C [address] [place] [address] [facility] 09/10/24 Photographic Supervisor Relationship Specialty Start Date End Date Ravinder Babb MD [address] [place] [address] PCP - General Family Medicine 05/26/18 Leora Balderas, CHANTEL.DIRECTOR OF PUBLICATIONS [address] [place] [address] [facility] 09/10/24 Mini Crystal PA-C [address] [place] [address] [facility] 09/10/24 Photographic Supervisor Relationship Specialty Start Date End Date Ravinder Babb MD [address] [place] [address] PCP - General Family Medicine 05/26/18 Leora Balderas, SANITATION OFFICER.DIRECTOR OF PUBLICATIONS [address] [place] [address] [facility] 09/10/24 Mini Cyrstal PA-C [address] [place] [address] [facility] 09/10/24 Photographic Supervisor Relationship Specialty Start Date End Date Ravinder Babb MD [address] [place] [address] PCP - General Family Medicine 05/26/18 Leora Balderas APRN.DIRECTOR OF PUBLICATIONS [address] [place] [address] [facility] 09/10/24 Mini Crystal PA-C [address] [place] [address] [facility] 09/10/24 Photographic Supervisor Relationship Specialty Start Date End Date Ravinder Babb MD [address] [place] [address] PCP - General Family Medicine 05/26/18 Leora Balderas APRN.DIRECTOR OF PUBLICATIONS [address] [place] [address] [facility] 09/10/24 Mini Crystal PA-C [address] [place] [address] [facility] 09/10/24 Photographic Supervisor Relationship Specialty Start Date End Date Ravinder Babb MD [address] [place] [address] PCP - General Family Medicine 05/26/18 Leora Balderas, SANITATION OFFICER.DIRECTOR OF PUBLICATIONS [address] [place] [address] [facility] 09/10/24 Mini Crystal PA-C [address] [facility] [place] [address] [facility] 09/10/24 Photographic Supervisor Relationship Specialty Start Date End Date Ravinder Babb MD [address] [place] [address] PCP - General Family Medicine 05/26/18 Leora Balderas, SANITATION OFFICER.DIRECTOR OF PUBLICATIONS [address] [place] [address] [facility] 09/10/24 Mini Crystal PA-C [address] [place] [address] [facility] 09/10/24 Photographic Supervisor Relationship Specialty Start Date End Date Ravinder Babb MD [address] [place] [address] PCP - General Family Medicine 05/26/18 Leora Balderas, SANITATION OFFICER.DIRECTOR OF PUBLICATIONS [address] [place] [address] [facility] 09/10/24 Mini Crystal PA-C [address] [facility] [place] [address] [facility] 09/10/24 Photographic Supervisor Relationship Specialty Start Date End Date Ravinder Babb MD [address] [place] [address] PCP - General Family Medicine 05/26/18 Leora Balderas APRN.DIRECTOR OF PUBLICATIONS [address] [place] [address] [facility] 09/10/24 Mini Crystal PA-C [address] [place] [address] [facility] 09/10/24 Photographic Supervisor Relationship Specialty Start Date End Date Ravinder Babb MD [address] [place] [address] PCP - General Family Medicine 05/26/18 Leora Balderas APRN.DIRECTOR OF PUBLICATIONS [address] [place] [address] [facility] 09/10/24 Mini Crystal PA-C [facility] [place] [address] [facility] [employer] 09/10/24 Photographic Supervisor Relationship Specialty Start Date End Date Ravinder Babb MD [address] [place] [address] PCP - General Family Medicine 05/26/18 Leora Balderas APRN.DIRECTOR OF PUBLICATIONS [facility] [place] [address] [facility] 09/10/24 Mini Crystal PA-C [address] [place] [address] [facility] 09/10/24 Photographic Supervisor Relationship Specialty Start Date End Date Ravinder Babb MD [address] [place] [address] PCP - General Family Medicine 05/26/18 Leora Balderas, CHANTEL.DIRECTOR OF PUBLICATIONS [address] [place] [address] [facility] 09/10/24 Mini Crystal PA-C [address] [place] [address] [facility] 09/10/24 Photographic Supervisor Relationship Specialty Start Date End Date Ravinder Babb MD [address] [place] [address] PCP - General Family Medicine 05/26/18 Leora Balderas, CHANTEL.DIRECTOR OF PUBLICATIONS [address] [place] [address] [facility] 09/10/24 Mini Crystal PA-C [address] [place] [address] [facility] 09/10/24 Photographic Supervisor Relationship Specialty Start Date End Date Ravinder Babb MD [address] [place] [address] PCP - General Family Medicine 05/26/18 Leora Balderas, SANITATION OFFICER.DIRECTOR OF PUBLICATIONS [address] [place] [address] [facility] 09/10/24 Mini Crystal PA-C [address] [facility] [place] [address] [employer] [facility] 09/10/24 Photographic Supervisor Relationship Specialty Start Date End Date Ravinder Babb MD [address] [facility] [place] [address] PCP - General Family Medicine 05/26/18 Leora Balderas APRN.DIRECTOR OF PUBLICATIONS [address] [place] [address] [facility] 09/10/24 Mini Crystal PA-C [address] [place] [address] [facility] 09/10/24 Photographic Supervisor Relationship Specialty Start Date End Date Ravinder Babb MD [address] [place] [address] PCP - General Family Medicine 05/26/18 Leora Balderas, CHANTEL.DIRECTOR OF PUBLICATIONS [address] [place] [address] [facility] 09/10/24 Mini Crystal PA-C [address] [facility] [place] [address] [facility] 09/10/24 Photographic Supervisor Relationship Specialty Start Date End Date Ravinder Babb MD [address] [facility] [place] [address] PCP - General Family Medicine 05/26/18 Leora Balderas, CHANTEL.DIRECTOR OF PUBLICATIONS [address] [place] [address] [facility] 09/10/24 Mini Crystal PA-C [address] [place] [address] [facility] 09/10/24 Photographic Supervisor Relationship Specialty Start Date End Date Ravinder Babb MD [address] [place] [address] PCP - General Family Medicine 05/26/18 Leora Balderas APRN.DIRECTOR OF PUBLICATIONS [address] [place] [address] [facility] 09/10/24 Mini Crystal PA-C [address] [place] [address] [facility] 09/10/24 Photographic Supervisor Relationship Specialty Start Date End Date Ravinder Babb MD [address] [place] [address] PCP - General Family Medicine 05/26/18 Leora Balderas APRN.DIRECTOR OF PUBLICATIONS [address] [place] [address] [facility] 09/10/24 Mini Crystal PA-C [address] [place] [address] [facility] 09/10/24 Photographic Supervisor Relationship Specialty Start Date End Date Ravinder Babb MD [address] [place] [address] PCP - General Family Medicine 05/26/18 Leora Balderas APRN.DIRECTOR OF PUBLICATIONS [address] [place] [address] [facility] 09/10/24 Mini Crystal PA-C [address] [place] [address] [facility] 09/10/24 Ann Dickinson PA-C [address] [place] [address] Physician [employer] 11/30/24 Photographic Supervisor Relationship Specialty Start Date End Date Ravinder Babb MD [address] [place] [address] PCP - General Family Medicine 05/26/18 Leora Balderas APRN.DIRECTOR OF PUBLICATIONS [address] [place] [address] [facility] 09/10/24 Mini Crystal PA-C [address] [place] [address] [facility] 09/10/24 Ann Dickinson PA-C [address] [place] [address] Physician [employer] 11/30/24 Photographic Supervisor Relationship Specialty Start Date End Date Ravinder Babb MD [address] [place] [address] PCP - General Family Medicine 05/26/18 Leora Balderas, CHANTEL.DIRECTOR OF PUBLICATIONS [address] [place] [address] [facility] 09/10/24 Mini Crystal PA-C [address] [place] [address] [facility] 09/10/24 Ann Dickinson PA-C [address] [place] [address]41 Physician [employer] 11/30/24 Photographic Supervisor Relationship Specialty Start Date End Date Ravinder Babb MD [address] [place] [address] PCP - General Family Medicine 05/26/18 Leora Balderas APRN.DIRECTOR OF PUBLICATIONS [address] [place] [address] [facility] 09/10/24 Mini Crystal PA-C [address] [place] [address] [facility] Family Medicine 09/10/24 Ann Dickinson PA-C [address] [place] [address]69 Physician [employer] 11/30/24 Photographic Supervisor Relationship Specialty Start Date End Date Ann Dickinson PA-C [address] [place] [address]991 PCP - General Physician [employer] 01/02/25 Leora Balderas, CHANTEL.DIRECTOR OF PUBLICATIONS [address] [place] [address]65 [facility] 09/10/24 Mini Crystal PA-C [address] [place] [address] [facility] 09/10/24 Ann Dickinson PA-C [address] [place] [address]86 Physician [employer] Feeder 11/30/24 Photographic Supervisor Relationship Specialty Start Date End Date Ann Dickinson PA-C [address] [place] [address]103 PCP - General Physician [employer] 01/02/25 Leora Balderas APRN.DIRECTOR OF PUBLICATIONS [address] [place] [address] [facility] 09/10/24 Mini Crystal PA-C [address] [place] [address] [facility] 09/10/24 Ann Dickinson PA-C [address] [place] [address]257 Physician [employer] 11/30/24 Praful Guajardo MD [facility] [address] [place] [address] Vascular Surgery 01/12/25 Photographic Supervisor Relationship Specialty Start Date End Date Ann Dickinson PA-C [address] [place] [address]46 PCP - General Physician [employer] 01/02/25 Leora Balderas APRN.DIRECTOR OF PUBLICATIONS [address] [place] [address] [employer] [facility] 09/10/24 Mini Crystal PA-C [address] [place] [address] [employer] [facility] 09/10/24 Ann Dickinson PA-C [address] [place] [address] 75681 Physician Log [employer] Feeder 11/30/24 Praful Guajardo MD [address] Desk [address] [address] Vascular Surgery 01/12/25 Photographic Supervisor Relationship Specialty Start Date End Date Ann Dickinson PA-C [address] [place] [address] PCP - General Physician Log Chain Feeder 01/02/25 Leora Balderas APRN.DIRECTOR OF PUBLICATIONS [address] [place] [address] [employer] [facility] 09/10/24 Mini Crystal PA-C [address] [place] [address] [facility] 09/10/24 Ann Dickinson PA-C [address] [place] [address] 8[address]19 Physician Log [employer] Feeder 11/30/24 Praful Guajardo MD [address] 0 [place] [address] Vascular Surgery 01/12/25 Photographic Supervisor Relationship Specialty Start Date End Date Ann Dickinson PA-C [address] [place], [place] [address] PCP - General Physician Log Chain Feeder 01/02/25 Leora Balderas, CHANTEL.DIRECTOR OF PUBLICATIONS [address] [place], [place] 957721 [facility] 09/10/24 Mini Crystal PA-C [address] [place] [address] [facility] 09/10/24 Ann Dickinson PA-C [address] [place] [address] 47618 Physician Log Chain Feeder 11/30/24 Praful Guajardo MD [address] [facility] [address] [place], [place] [address] Vascular Surgery 01/12/25 Photographic Supervisor Relationship Specialty Start Date End Date Ravinder Babb MD [address] [place] [address] PCP - General Family Medicine 05/26/18 01/01/25 Leora Balderas, CHANTEL.DIRECTOR OF PUBLICATIONS [address] [place] [address] [facility] 09/10/24 Mini Crystal PA-C [address] [place] [address] [facility] 09/10/24 Ann Dickinson PA-C [address] [place] [address] 70228 Physician Log Chain Feeder 11/30/24 Photographic Supervisor Relationship Specialty Start Date End Date Ravinder Babb MD [address] [place] [address] PCP - General Family Medicine 05/26/18 01/01/25 Ann Dickinson PA-C [address] [place] [address] 25698 PCP - General Physician Log Chain Feeder 01/02/25 Leora Balderas APRN.DIRECTOR OF PUBLICATIONS [address] [place] [address]666 [facility] 09/10/24 Mini Crystal PA-C [address] [place] [address] [facility] 09/10/24 Ann Dickinson PA-C [address] [place] [address] 51391 Physician Log Chain Feeder 11/30/24 Praful Guajardo MD [facility] [address] Vascular Surgery 01/12/25 Photographic Supervisor Relationship Specialty Start Date End Date Ann Dickinson PA-C [address] [place] [address]345 PCP - General Physician Log Chain Feeder 01/02/25 Leora Balderas APRN.DIRECTOR OF PUBLICATIONS [address] [place] [address]244 [employer] [facility] 09/10/24 Mini Crystal PA-C [address] [place] [address] [facility] 09/10/24 Ann Dickinson PA-C [address] [place] [address] 42808 Physician Log Chain Feeder 11/30/24 Prfaul Guajardo MD [address] [place] [address] Vascular Surgery 01/12/25 Photographic Supervisor Relationship Specialty Start Date End Date Ann Dickinson PA-C [address] [place] [address]295 PCP - General Physician Log Chain Feeder 01/02/25 Leora Balderas, CHANTEL.DIRECTOR OF PUBLICATIONS [address] [place] [address] [facility] 09/10/24 Mini Crystal PA-C [address] [place] [address] [facility] 09/10/24 Ann Dickinson PA-C [address] [place] [address] Physician Log Chain Feeder 11/30/24 Praful Guajardo MD [address] [place] [address] Vascular Surgery 01/12/25 Photographic Supervisor Relationship Specialty Start Date End Date Ann Dickinson PA-C [address] [place] [address]40 PCP - General Physician Log Chain Feeder 01/02/25 Leora Balderas, CHANTEL.DIRECTOR OF PUBLICATIONS [facility] [place] [address] [facility] 09/10/24 Mini Crystal PA-C [address] [place] [address] [facility] 09/10/24 Ann Dickinson PA-C [address] [place] [address] 29512 Physician Log Chain Feeder 11/30/24 Praful Guajardo MD [address] [facility] Desk 0 [place], [place] [phone] Vascular Surgery 01/12/25 Photographic Supervisor Relationship Specialty Start Date End Date Ann Dickinson PA-C [address] [place] [address]310 PCP - General Physician Log Chain Feeder 01/02/25 Leora Balderas, CHANTEL.DIRECTOR OF PUBLICATIONS [address] [place] [address]342 [facility] 09/10/24 Mini Crystal PA-C [address] [place] [address] [facility] 09/10/24 Ann Dickinson PA-C [address] [place] [address] Physician Log Chain Feeder 11/30/24 Praful Guajardo MD [address] [place] [address] Vascular Surgery 01/12/25 Photographic Supervisor Relationship Specialty Start Date End Date Ann Dickinson PA-C [address] [place] [address] 66782 PCP - General Physician Log Chain Feeder 01/02/25 Leora Balderas APRN.DIRECTOR OF PUBLICATIONS [address] [place] [address] 8[address]12 [facility] 09/10/24 Mini Crystal PA-C [address] [place] [address] 26655 [facility] [employer] 09/10/24 Ann Dickinson PA-C [address] [place] [address] 95677 Physician Log Chain Feeder 11/30/24 Praful Guajardo MD [address] 0 [place] [address] Vascular Surgery 01/12/25 Photographic Supervisor Relationship Specialty Start Date End Date Ann Dickinson PA-C [address] [place] [address] 71093 PCP - General Physician Log Chain Feeder 01/02/25 Leora Balderas APRN.DIRECTOR OF PUBLICATIONS [address] [place] [address] 70786 [facility] 09/10/24 Mini Crystal PA-C [address] [place] [address] 220771 [facility] 09/10/24 Ann Dickinson PA-C [address] [place] [address] 09028 Physician Log Chain Feeder 11/30/24 Praful Guajardo MD [address] [place], [place] [id number] Vascular Surgery 01/12/25 Photographic Supervisor Relationship Specialty Start Date End Date Ann Dickinson PA-C [address] [place] [address] 54167 PCP - General Physician Log Chain Feeder 01/02/25 Leora Balderas APRN.DIRECTOR OF PUBLICATIONS [address] [place] [address] [phone] [facility] 09/10/24 Mini Crystal PA-C [address] [place] [address] 63196 [facility] 09/10/24 Ann Dickinson PA-C [address] [place] [address] 88254 Physician Log Chain Feeder 11/30/24 Praful Guajardo MD [address] [place], [place] [phone] Vascular Surgery 01/12/25 Photographic Supervisor Relationship Specialty Start Date End Date Ann Dickinson PA-C [address] [place] [address] 35670 PCP - General Physician Log Chain Feeder 01/02/25 Leora Balderas APRN.DIRECTOR OF PUBLICATIONS [address] [place] [address] [employer] [facility] 09/10/24 Mini Crystal PA-C [address] [place] [address] [employer] [facility] 09/10/24 Ann Dickinson PA-C [address] [place] [address] 17641 Physician Log Chain Feeder 11/30/24 Praful Guajardo MD [address] [place], [place] [phone] Vascular Surgery 01/12/25 Photographic Supervisor Relationship Specialty Start Date End Date Ann Dickinson PA-C [address] [place] [address] 20273 PCP - General Physician Log Chain Feeder 01/02/25 Leora Balderas APRN.DIRECTOR OF PUBLICATIONS [address] [place] [address] 27099 [employer] [facility] 09/10/24 Mini Crystal PA-C [address] [place] [address] [employer] [facility] 09/10/24 Ann Dickinson PA-C [address] [place] [address] 37764 Physician Log Chain Feeder 11/30/24 Praful Guajardo MD [address] [place] [address] Vascular Surgery 01/12/25 Photographic Supervisor Relationship Specialty Start Date End Date Ann Dickinson PA-C [address] [place] [address] 27960 PCP - General Physician Log Chain Feeder 01/02/25 Leora Balderas APRN.DIRECTOR OF PUBLICATIONS [address] [place] [address] 39987 [facility] [employer] 09/10/24 Mini Crystal PA-C [address] [place] [address] 12118 [employer] [facility] 09/10/24 Ann Dickinson PA-C [address] [place] [address] 30261 Physician Log Chain Feeder 11/30/24 Praful Guajardo MD [address] [place] [address] Vascular Surgery 01/12/25 Photographic Supervisor Relationship Specialty Start Date End Date Ann Dickinson PA-C [address] [place] [address] 54345 PCP - General Physician Log Chain Feeder 01/02/25 Leora Balderas APRN.DIRECTOR OF PUBLICATIONS [address] [place] [address] 08902 [facility] 09/10/24 Mini Crystal PA-C [address] [place] [address] [facility] 09/10/24 Ann Dickinson PA-C [address] [place] [phone] Physician Log Chain Feeder 11/30/24 Praful Guajardo MD [address] Desk F[address] [place], [place] [phone] Vascular Surgery 01/12/25 Photographic Supervisor Relationship Specialty Start Date End Date Ann Dickinson PA-C [address] [place] [address] [phone] PCP - General Physician Log Chain Feeder 01/02/25 Leora Balderas APRN.DIRECTOR OF PUBLICATIONS [address] [place] [phone] [facility] 09/10/24 Mini Crystal PA-C [address] [place] [address] [facility] 09/10/24 Ann Dickinson PA-C [address] [place] [phone] Physician Log Chain Feeder 11/30/24 Praful Guajardo MD [address] Desk [address] [place], [place] [phone] Vascular Surgery 01/12/25 Photographic Supervisor Relationship Specialty Start Date End Date Ann Dickinson PA-C [address] [place] [phone] PCP - General Physician Log Chain Feeder 01/02/25 Leora Balderas APRN.DIRECTOR OF PUBLICATIONS [address] [place] [address] [id number] [employer] [facility] 09/10/24 Mini Crystal PA-C [address] [place] [address] [phone] [facility] 09/10/24 Ann Dickinson PA-C [address] [place] [address] Physician Log Chain Feeder 11/30/24 Praful Guajardo MD [id number] [place], [place] [phone] Vascular Surgery 01/12/25 Photographic Supervisor Relationship Specialty Start Date End Date Ann Dickinson PA-C [address] [place] [address] [phone] PCP - General Physician Log Chain Feeder 01/02/25 Leora Balderas APRN.DIRECTOR OF PUBLICATIONS [address] [place] [address] [phone] [facility] 09/10/24 Mini Crystal PA-C [address] [place] [address] 28014 [facility] 09/10/24 Ann Dickinson PA-C [address] [place] [address]81 Physician Log Chain Feeder 11/30/24 Praful Guajardo MD [address] [place] [address] Vascular Surgery 01/12/25 Photographic Supervisor Relationship Specialty Start Date End Date Ann Dickinson PA-C [address] [place] [address] [phone] PCP - General Physician Log Chain Feeder 01/02/25 Leora Balderas APRN.DIRECTOR OF PUBLICATIONS [address] [place] [address] [phone] [facility] 09/10/24 Mini Crystal PA-C [address] [place] [address] 23[address] [facility] 09/10/24 Ann Dickinson PA-C [address] [place] [address] Physician Log Chain Feeder 11/30/24 Praful Guajardo MD [address] [place] [address] Vascular Surgery 01/12/25 Photographic Supervisor Relationship Specialty Start Date End Date Ann Dickinson PA-C [address] [place] [address] PCP - General Physician Log Chain Feeder 01/02/25 Leora Balderas APRN.DIRECTOR OF PUBLICATIONS [address] [place] [address] [phone] [facility] 09/10/24 Mini Crystal PA-C [address] [place], [place] [phone] [employer] [facility] 09/10/24 Ann Dickinson PA-C [address] [place], [place] [phone] Physician Log Chain Feeder 11/30/24 Praful Guajardo MD [address] [place] [address] Vascular Surgery 01/12/25 Photographic Supervisor Relationship Specialty Start Date End Date Ann Dickinson PA-C [address] [place], [place] [phone] PCP - General Physician Log Chain Feeder 01/02/25 Leora Balderas APRN.DIRECTOR OF PUBLICATIONS [address] [place], [place] [phone] [facility] [employer] [facility] 09/10/24 06/11/25 Mini Crystal PA-C [address] [place] [address] 97[address] [employer] [facility] 09/10/24 06/11/25 Ann Dickinson PA-C [address] [place], [place] [phone] Physician Log Chain Feeder 11/30/24 Praful Guajardo MD [address] [place], [place] [phone] Vascular Surgery 01/12/25 Goals (unrecognized section and content) Goals may be documented in a n alternate sectionGoals may be documented in an alternate section INFORMATION SOURCE (unrecogn ized section and content) DATE CREATED AUTHOR 04/05/2022 [facility] DATE CREATED AUTHOR AUTHOR'S ORGANIZ ATION 11/19/2024 [facility] DATE CREATED AUTHOR AUTHOR'S ORGANIZ ATION 04/08/2025 [facility] DATE CREATED AUTHOR AUTHOR'S ORGANIZ ATION 07/10/2025 [facility] DATE CREATED AUTHOR AUTHOR'S ORGANIZ ATION 07/11/2025 [facility] DATE CREATED AUTHOR AUTHOR'S ORGANIZ ATION 07/31/2025 [facility] Inactive Administered Medications - up to 3 most recent administrations Administered Medications (un recognized section and content) Medication Order MAR Action Action Date Dose Rate Site tropicamide 1 % 1 Drop (MYDRIACYL) 1 Drop, BOTH EYES, ONCE, 1 dose, On Thu12/29/23 at 1630, FOR THE EYE Given 12/29/2023 4:30 PM EDT 1 Drop FOR RECORDS PERTAINING TO PATIENTS WHO ARE OR HAVE BEEN ENROLLED IN A CHEMICAL DEPENDENCY/SUBSTANCEABUSE PROGRAM, SOME INFORMATION MAY BE OMITTED. This clinical summary was aggregated from multiple sources. Caution should be exercised in using it in the provision of clinical care. This summary normalizes information from multiple sources, and as a consequence, information in this document may materially change the coding, format and clinical context of patient data. In addition, data may be omitted in some cases. CLINICAL DECISIONS SHOULD BE BASED ON THE PRIMARY CLINICAL RECORDS. [employer] [facility]. provides no warranty or guarantee of the accuracy or completeness of information in this document.
== END 2025-07-31 20:21 | disposition left against medical advice (07) ==
LOC: ED 20:26
DX: Z00.00 Encounter for general adult medical examination without abnormal findings (principal)
CPT/HCPCS: 99281